=== PATIENT | female | born 1950 | race Caucasian/White ===

== ENCOUNTER → 2018-01-02 00:43 | Outpatient (CLI) | payer MEDICARE, MEDICAID, SELFPAY ==
--- NOTE | 2018-01-02 07:08 | DI.REPORT_ITS ---
SYMPTOM/DIAGNOSIS: RUQ ABD PAIN, R10..11 ABDOMINAL ULTRASOUND: Aorta and vena cava are unremarkable. The liver is mildly heterogeneous and echogenic consistent with fatty infiltration. The liver is enlarged with a maximal diameter of 19.9 cm. The gallbladder is unremarkable. There are no stones. There is no evidence of ductal dilatation. The pancreas is echogenic. The head and body is seen. The tail is not visualized. The spleen is enlarged measuring 16.1 x 14.2 x 10.1 cm. The kidneys are unremarkable. There is no evidence of abdominal free fluid. SUMMARY: An enlarged fatty liver is demonstrated. There is also some fatty infiltration of the pancreas. The examination is otherwise unremarkable.
== END ==
PROVIDERS: PCP Physician Assistant Medical; Visit Provider Physician Assistant Medical
DX: R10.11 Right upper quadrant pain (principal); E16.2 Hypoglycemia, unspecified; K76.0 Fatty (change of) liver, not elsewhere classified; K86.89 Other specified diseases of pancreas
CPT/HCPCS: 76700

== ENCOUNTER → 2018-01-14 15:51 | Outpatient (REF) | payer MEDICARE, MEDICAID, SELFPAY ==
[2018-01-14 20:28] LABS: ALT 23 U/L (12-78); AST 15 U/L (15-37); Albumin 4.1 g/dL (3.4-5.0); Alkaline Phosphatase 84 U/L (46-116); Bilirubin, Direct 0.15 mg/dL (0.00-0.20); Bilirubin, Total 0.5 mg/dL (0.2-1.0); Total Protein 7.1 g/dL (6.4-8.2)
[2018-01-14 21:04] LABS: Hemoglobin A1C 5.9 % (4.5-6.2)
[2018-01-16 10:52] LABS: Hepatitis A Antibody IgM Negative (NEGAT); Hepatitis B Core Antibody Negative (NEGAT); Hepatitis B surface Ag Negative (NEGAT); Hepatitis C Ab w Rflx HCV PCR Negative (NEGAT)
== END ==
LOC: NCHCN 15:51
PROVIDERS: PCP Physician Assistant Medical; Visit Provider Physician Assistant Medical
DX: R73.9 Hyperglycemia, unspecified (principal); R16.0 Hepatomegaly, not elsewhere classified; R10.11 Right upper quadrant pain
CPT/HCPCS: 80076; 86704; 86709; 86803; 87340; 83036

== ENCOUNTER 2018-01-23 01:40 | Outpatient (CLI) | payer MEDICARE, MEDICAID, SELFPAY ==
--- NOTE | 2018-01-23 13:55 | MERGE_ITS ---
*[facility]* *[facility]* [address] [place] [address] Date of study: 01/23/2018 Transthoracic Echocardiography M-mode, complete 2D, complete spectral Doppler, and color Doppler *STUDY CONCLUSIONS* Summary: 1. Left ventricle: The cavity size was normal. Wall thickness was at the upper limits of normal. Systolic function was normal. The estimated ejection fraction was 55-60%. Wall motion was normal; there were no regional wall motion abnormalities. 2. Right ventricle: The cavity size was normal. Systolic function was normal. 3. Mitral valve: There was mild regurgitation. 4. Tricuspid valve: There was mild-moderate regurgitation. 5. Pulmonary arteries: Pulmonary systolic pressure was increased, in the range of 35mm Hg to 40mm Hg. 6. Inferior vena cava: The vessel was patent and normal in size. The respirophasic diameter changes were in the normal range (greater than or equal to 50%), consistent with normal central venous pressure. 7. Pericardium, extracardiac: A trivial pericardial effusion was identified. There was no evidence of hemodynamic compromise. *PATIENT PRESENTATION* Height: 157.5cm ((62in) ) S/D Pressure: 113 / 69 Weight: 104.3kg ((229.5lb) ) BSA: 2.2m^2 Test start time: 02:00 PM. Test stop time: 03:00 PM. PERFORMING Unknown PERFORMING [facility] [employer] RT Ni Arevalo)(CT), [facility] ORDERING Nadege Mcgregor Pa-C REFERRING Nadege Mcgregor Pa-C *PROCEDURE DATA* Procedure information: The patient was identified by two identifiers. This study was interpreted by [facility]. Pertinent images and digital data are archived for permanent storage and are available for subsequent review. No prior study was available for comparison. Study status: Routine. Transthoracic echocardiography. M-mode, complete 2D, complete spectral Doppler, and color Doppler. A Transthoracic Echocardiogram was performed. Scanning was performed from the parasternal, apical, subcostal, and suprasternal notch acoustic windows. Images were obtained using an [id number] cardiac ultrasound machine. Image quality was adequate. Study completion: The patient tolerated the procedure well. There were no complications. History: PMH: Ankle edema. *CARDIAC ANATOMY* Left ventricle: The cavity size was normal. Wall thickness was at the upper limits of normal. Systolic function was normal. The estimated ejection fraction was 55-60%. Wall motion was normal; there were no regional wall motion abnormalities. Findings consistent with diastolic dysfunction. There was no evidence of elevated ventricular filling pressure by Doppler parameters. Aortic valve: Trileaflet; normal thickness leaflets. Mobility was not restricted. Doppler: Transvalvular velocity was within the normal range. There was no stenosis. There was no significant regurgitation. VTI ratio of LVOT to aortic valve: 0.76. Valve area (VTI): 2.2cm^2. Indexed valve area (VTI): 1cm^2/m^2. Peak velocity ratio of LVOT to aortic valve: 0.71. Valve area (Vmax): 2cm^2. Indexed valve area (Vmax): 0.9cm^2/m^2. Mean velocity ratio of LVOT to aortic valve: 0.67. Valve area (Vmean): 1.9cm^2. Indexed valve area (Vmean): 0.9cm^2/m^2. Mean gradient (S): 6.4mm Hg. Peak gradient (S): 12.4mm Hg. Aorta: Aortic root: The aortic root was normal in size. Ascending aorta: The ascending aorta was normal in size. Mitral valve: Mildly thickened leaflets. Mobility was not restricted. Doppler: Transvalvular velocity was within the normal range. There was no evidence for stenosis. There was mild regurgitation. Valve area by pressure half-time: 3.7cm^2. Indexed valve area by pressure half-time: 1.7cm^2/m^2. Peak gradient (D): 3.5mm Hg. Left atrium: The atrium was normal in size. Right ventricle: The cavity size was normal. Systolic function was normal. Pulmonic valve: Poorly visualized. Doppler: Transvalvular velocity was within the normal range. There was no evidence for stenosis. There was no significant regurgitation. Tricuspid valve: Structurally normal valve. Doppler: Transvalvular velocity was within the normal range. There was no evidence for stenosis. There was mild-moderate regurgitation. Pulmonary artery: Poorly visualized. Pulmonary systolic pressure was increased, in the range of 35mm Hg to 40mm Hg. Right atrium: The atrium was normal in size. Pericardium: A trivial pericardial effusion was identified. There was no evidence of hemodynamic compromise. Systemic veins: Inferior vena cava: Well visualized. The vessel was patent and normal in size. The respirophasic diameter changes were in the normal range (greater than or equal to 50%), consistent with normal central venous pressure. Baseline ECG: Normal sinus rhythm. Measurements Left ventricle Value Reference LV ID, ED, PLAX 5.3 cm 3.5 - 6.0 LV ID, ES, PLAX 3.4 cm 2.1 - 4.0 LV PW thickness, ED, PLAX 1.0 cm LV end-diastolic volume, 1-p A2C 84 ml LV ejection fraction, 1-p A2C 63 % LV end-diastolic volume, 1-p A4C 98 ml LV ejection fraction, 1-p A4C 59 % LV e', lateral 0.077 m/sec LV E/e', lateral 12 LV e', medial 0.084 m/sec LV E/e', medial 11 LV e', average 0.081 m/sec LV E/e', average 12 Ventricular septum Value Reference IVS thickness, ED, PLAX 1.1 cm LVOT Value Reference LVOT ID, A-P 1.9 cm LVOT area 2.8 cm^2 LVOT peak velocity, S 1.26 m/sec LVOT mean velocity, S 0.8 m/sec LVOT VTI, S 27.8 cm LVOT peak gradient, S 6.3 mm Hg LVOT mean gradient, S 3.1 mm Hg Stroke volume (SV), LVOT DP 79 ml Stroke index (SV/bsa), LVOT DP 36 ml/m^2 Aortic valve Value Reference Aortic valve peak velocity, S 1.8 m/sec Aortic valve mean velocity, S 1.2 m/sec Aortic valve VTI, S 36.4 cm Aortic mean gradient, S 6.4 mm Hg Aortic peak gradient, S 12.4 mm Hg VTI ratio, LVOT/AV 0.76 Aortic valve area, VTI 2.2 cm^2 Velocity ratio, peak, LVOT/AV 0.71 Aortic valve area, peak velocity 2 cm^2 Velocity ratio, mean, LVOT/AV 0.67 Aortic valve area, mean velocity 1.9 cm^2 Aortic valve area/bsa, mean velocity 0.9 cm^2/m^2 Aorta Value Reference Aortic root ID, ED 2.7 cm Ascending aorta ID, A-P, S 3.2 cm RVOT Value Reference RVOT VTI, S 17.3 cm Left atrium Value Reference LA ID, A-P, ES 4.2 cm LA ID/bsa, A-P 1.9 cm/m^2 <=2.2 LA area, ES, A4C 15.8 cm^2 8.8 - 23.4 LA area, ES, A2C 17 cm^2 LA volume/bsa, ES, 1-p A4C 22 ml/m^2 LA volume, ES, 2-p 43 ml LA volume/bsa, ES, 2-p 20 ml/m^2 LA/aortic root ratio 1.55 Mitral valve Value Reference Mitral E-wave peak velocity 0.94 m/sec Mitral A-wave peak velocity 0.98 m/sec Mitral deceleration time 204 ms 150 - 230 Mitral pressure half-time 59 ms Mitral peak gradient, D 3.5 mm Hg Mitral E/A ratio, peak 0.96 Mitral valve area, PHT, DP 3.7 cm^2 Pulmonary veins Value Reference Pulmonary vein peak velocity, S 0.53 m/sec Pulmonary vein peak velocity, D 0.57 m/sec Pulmonary vein velocity ratio, peak, 0.93 S/D Pulmonary vein A-wave reversal peak 0.32 m/sec velocity Tricuspid valve Value Reference Tricuspid regurg peak velocity 3.1 m/sec Tricuspid peak RV-RA gradient 37.9 mm Hg Right atrium Value Reference RA area, ES, A4C 16.3 cm^2 8.3 - 19.5 Legend: (L) and (H) kenneth values outside specified reference range. I have personally reviewed the images and have reviewed and edited the reported findings. Electronically signed by Gretchen Hernandez 01/23/2018 15:58
== END 2018-01-23 01:41 ==
PROVIDERS: PCP Physician Assistant Medical; Visit Provider Physician Assistant Medical
DX: R60.0 Localized edema (principal); I31.3 Pericardial effusion (noninflammatory); I08.1 Rheumatic disorders of both mitral and tricuspid valves
CPT/HCPCS: 93306

== ENCOUNTER 2018-08-01 13:35 | Outpatient (REF) | payer MEDICARE, SELFPAY ==
[2018-08-01 19:38] LABS: Cholesterol 205 mg/dL (50-200); HDL Cholesterol 73 mg/dL (40-60); LDL CHOLESTEROL 104 mg/dL (<100); Triglyceride 128 mg/dL (30-150)
== END 2018-08-01 13:55 ==
LOC: NCHCN 13:35
PROVIDERS: PCP Physician Assistant Medical; Visit Provider Nurse Practitioner Family
DX: E78.5 Hyperlipidemia, unspecified (principal); I10 Essential (primary) hypertension
CPT/HCPCS: 80061; 83721

== ENCOUNTER 2018-08-04 07:37 | Day surgery (SDC) | payer MEDICARE, OTHER, SELFPAY ==
--- NOTE | 2018-08-03 17:10 | W.PIPPEYE ---
History of Present Illness Chief Complaint: Progressive decreased vision, left eye Narrative: Patient is a 67-year-old lady with history of diminished visual acuity in both eyes and near. She notes progressive decreased vision in both eyes with significant difficulty reading road signs and with photography. On examination she was noted to have moderate nuclear cortical and posterior subcapsular cataracts OU with visual acuity of 20/50 in each eye. The option of cataract surgery was offered to the patient and she felt she was symptomatic enough that she wished to proceed. NOTE: The Chief Complaint, HPI, Past Medical History, Past Surgical History, Family History, Social History, Medications, and complete Ophthalmic Exam with detailed Assessment and Plan have already been documented in the patient's outpatient ophthalmic record and are not covered again in detail here. [facility] Medical History Cortical cataract of left eye (Acute) Posterior subcapsular age-related cataract of left eye (Acute) Nuclear sclerotic cataract of left eye (Acute) Social History Smoking and Tabacco status: Former Tobacco Use Meds Home Medications Medication Instructions Recorded Confirmed Type aspirin [Aspirin Low-Strength] 81 mg PO DAILY tab-cap 09/18/12 07/30/18 History sertraline 200 mg PO DAILY tab-cap 09/18/12 07/30/18 History losartan [Cozaar] 50 mg PO DAILY tab-cap 03/26/16 07/30/18 History simvastatin 40 mg PO DAILY tab-cap 03/26/16 07/30/18 History biotin 5 mg PO DAILY 07/30/18 07/30/18 History calcium carbonate [Tums] 400 - 800 mg PO PRN PRN 07/30/18 07/30/18 History cholecalciferol (vitamin D3) 1,000 unit PO DAILY 07/30/18 07/30/18 History [Vitamin D3] furosemide 20 mg PO DAILY 07/30/18 07/30/18 History rizatriptan [Maxalt-[employer] DIRECTOR] 5 mg PO .UP TO TWO DAILY PRN 07/30/18 07/30/18 History vitamin B complex 1 tab PO DAILY 07/30/18 07/30/18 History Allergies Allergy/AdvReac Type Severity Reaction Status Date / Time nickel [Nickel] Allergy Mild Unverified 07/30/18 16:00 sulfamethoxazole AdvReac Unknown Unverified 07/30/18 16:00 [From Bactrim] trimethoprim [From Bactrim] AdvReac Unknown Unverified 07/30/18 16:00 Exam OCULAR EXAM:: Most recent ocular examination revealed visual acuity of 20/50 in each eye. Intraocular pressure was 11 OD, 10 OS. Extraocular motility is normal. Pupils equal, round, and reactive without afferent pupillary defect slit-lamp examination is significant for pupils dilating to 5.5 mm OU. 1-2+ nuclear with 1+ cortical and trace posterior subcapsular cataract OD. 2+ nuclear with 2+ cortical and trace posterior subcapsular cataract OS. Dilated funduscopic examination shows disc cupping of 0.65 OD 0.7 OS with normal vessels, macula, peripheral retina and vitreous. BRIGHTNESS ACUITY TESTING (BAT):: Brightness acuity testing of the left eye off is 20/50. Low is 20/60. Medium is 20/60. High is 20/80. Assessment and Plan (1) Nuclear sclerotic cataract of left eye: Current visit: Yes Status: Acute Assessment: Visually significant cataract, left eye. Plan: Cataract extraction with intraocular lens implantation, left eye (2) Posterior subcapsular age-related cataract of left eye: Current visit: Yes Status: Acute Assessment: Visually significant cataract, left eye. Plan: Cataract extraction with intraocular lens implantation, left eye is (3) Cortical cataract of left eye: Current visit: Yes Status: Acute Assessment: Visually significant cataract, left eye. Plan: Cataract extraction with intraocular lens implantation, left eye Note: NOTE:: The details of the planned surgery, including the risks, indications,limitations,expectations,outcome and possible complications were explained to the patient. The patient understands the complications including, but not limited to: infection, hemorrhage, posterior dislocation of the lens or nuclear fragments which may require the intervention of a vitreoretinal surgeon, possible loss of the eye, or from anesthetic complications. The patient has been made aware of the option of not having surgery, that vision following surgery may not be equal to that prior to surgery, and that the planned surgery may not achieve the intended results. Following this discussion, which the patient appeared to understand, the patient wishes to proceed with cataract surgery with lens implantation of the affected eye to improve and maximize vision.
--- NOTE | 2018-08-03 17:13 | POEE_ITS ---
History of Present Illness Chief Complaint: Progressive decreased vision, left eye Narrative: Patient is a 67-year-old lady with history of diminished visual acuity in both eyes and near. She notes progressive decreased vision in both eyes with significant difficulty reading road signs and with photography. On e xamination she was noted to have moderate nuclear cortical and posterior subcapsular cataracts OU with visual acuity of 20/50 in each eye. The option of cataract surgery was offered to the patient and she felt she was symptomatic enough that she wished to proceed. NOTE: The Chief Complaint, HPI, Past Medical History, Past Surgical History, Family History, Social History, Medications, and complete Ophthalmic Exam with detailed Assessment and Plan have already been documented in the patient's outpatient ophthalmic record and are not covered again in detail here. [facility] Medical History Cortical cataract of left eye (Acute) Posterior subcapsular age-related cataract of left eye (Acute) Nuclear sclerotic cataract of left eye (Acute) Social History Smoking and Tabacco status: Former Tobacco Use Meds Home Medications Medication Instructions Recorded Confirmed Type aspirin [Aspirin Low-Strength] 81 mg PO DAILY tab-cap 09/18/12 07/30/18 History sertraline 200 mg PO DAILY tab-cap 09/18/12 07/30/18 History losartan [Cozaar] 50 mg PO DAILY tab-cap 03/26/16 07/30/18 History simvastatin 40 mg PO DAILY tab-cap 03/26/16 07/30/18 History biotin 5 mg PO DAILY 07/30/18 07/30/18 History calcium carbonate [Tums] 400 - 800 mg PO PRN PRN 07/30/18 07/30/18 History cholecalciferol (vitamin D3) 1,000 unit PO DAILY 07/30/18 07/30/18 History [Vitamin D3] furosemide 20 mg PO DAILY 07/30/18 07/30/18 History rizatriptan [Maxalt-BUTTON PUSHER] 5 mg PO .UP TO TWO DAILY PRN 07/30/18 07/30/18 History vitamin B complex 1 tab PO DAILY 07/30/18 07/30/18 History Allergies Allergy/AdvReac Type Severity Reaction Status Date / Time nickel [Nickel] Allergy Mild Unverified 07/30/18 16:00 sulfamethoxazole AdvReac Unknown Unverified 07/30/18 16:00 [From Bactrim] trimethoprim [From Bactrim] AdvReac Unknown Unverified 07/30/18 16:00 Exam OCULAR EXAM:: Most recent ocular examination revealed visual acuity of 20/50 in each eye. Intraocular pressure was 11 OD, 10 OS. Extraocular motility is normal. Pupils equal, round, and reactive without afferent pupillary defect slit-lamp examination is significant for pupils dilating to 5.5 mm OU. 1-2+ nuclear with 1+ cortical and trace posterior subcapsular cataract OD. 2+ nuclear with 2+ cortical and trace posterior subcapsular cataract OS. Dilated funduscopic examination shows disc cupping of 0.65 OD 0.7 OS with normal vessels, macula, peripheral retina and vitreous. BRIGHTNESS ACUITY TESTING (BAT):: Brightness acuity testing of the left eye off is 20/50. Low is 20/60. Medium is 20/60. High is 20/80. Assessment and Plan (1) Nuclear sclerotic cataract of left eye: Current visit: Yes Status: Acute Assessment: Visually significant cataract, left eye. Plan: Cataract extraction with intraocular lens implantation, left eye (2) Posterior subcapsular age-related cataract of left eye: Current visit: Yes Status: Acute Assessment: Visually significant cataract, left eye. Plan: Cataract extraction with intraocular lens implantation, left eye is (3) Cortical cataract of left eye: Current visit: Yes Status: Acute Assessment: Visually significant cataract, left eye. Plan: Cataract extraction with intraocular lens implantation, left eye Note: NOTE:: The details of the planned surgery, including the risks, indications,limitations,expectations,outcome and possible complications were explained to the patient. The patient understands the complications including, but not limited to: infection, hemorrhage, posterior dislocation of the lens or nuclear fragments which may require the intervention of a vitreoretinal surgeon, possible loss of the eye, or from anesthetic complications. The patient has been made aware of the option of not having surgery, that vision following surgery may not be equal to that prior to surgery, and that the planned surgery may not achieve the intended results. Following this discussion, which the patient appeared to understand, the patient wishes to proceed with cataract surgery with lens implantation of the affected eye to improve and maximize vision.
--- NOTE | 2018-08-03 18:22 | W.PM.DSUDISC ---
Discharge Plan Disposition Patient Disposition: HOME Condition: Stable Discharge Details Attending Provider: Mario Flores Primary Care Provider: Mary Barton Home Meds and New Rx's Prescriptions: No Action sertraline 100 MG tablet 200 mg PO DAILY RF: 0 aspirin [Aspirin Low-Strength] 81 MG tablet,chewable 81 mg PO DAILY RF: 0 losartan [Cozaar] 50 MG tablet 50 mg PO DAILY RF: 0 simvastatin 40 MG tablet 40 mg PO DAILY RF: 0 biotin 5 mg Capsule 5 mg PO DAILY RF: 0 calcium carbonate [Tums] 200 mg calcium (500 mg) Tablet,Chewable 400 - 800 mg PO PRN PRNRF: 0 vitamin B complex Tablet 1 tab PO DAILY RF: 0 furosemide 20 mg Tablet 20 mg PO DAILY RF: 0 rizatriptan [Maxalt-[employer] PRODUCT CONSULTANT] 5 mg Tablet,Disintegrating 5 mg PO .UP TO TWO DAILY PRNRF: 0 cholecalciferol (vitamin D3) [Vitamin D3] 1,000 unit Capsule 1,000 unit PO DAILY RF: 0 Discharge Instructions Stand Alone Forms: Post-op Topical Cataract, Shelia Lujan (DSU) Discharge Orders Discharge Orders: Discharge Order (Routine); Ordered 08/04/18 Ordered By: Mario Flores DS: Diagnosis Discharge Diagnosis (1) Status post cataract extraction and insertion of intraocular lens of left eye: Status: Chronic
--- NOTE | 2018-08-03 18:25 | PDOC.DSDIS_ITS ---
Discharge Plan Disposition Patient Disposition: HOME Condition: Stable Discharge Details Attending Provider: Mario Flores Primary Care Provider: Mary Barton Home Meds and New Rx's Prescriptions: No Action sertraline 100 MG tablet 200 mg PO DAILY RF: 0 aspirin [Aspirin Low-Strength] 81 MG tablet,chewable 81 mg PO DAILY RF: 0 losartan [Cozaar] 50 MG tablet 50 mg PO DAILY RF: 0 simvastatin 40 MG tablet 40 mg PO DAILY RF: 0 biotin 5 mg Capsule 5 mg PO DAILY RF: 0 calcium carbonate [Tums] 200 mg calcium (500 mg) Tablet,Chewable 400 - 800 mg PO PRN PRNRF: 0 vitamin B complex Tablet 1 tab PO DAILY RF: 0 furosemide 20 mg Tablet 20 mg PO DAILY RF: 0 rizatriptan [Maxalt-[employer] DISTRIBUTION EXECUTIVE] 5 mg Tablet,Disintegrating 5 mg PO .UP TO TWO DAILY PRNRF: 0 cholecalciferol (vitamin D3) [Vitamin D3] 1,000 unit Capsule 1,000 unit PO DAILY RF: 0 Discharge Instructions Stand Alone Forms: Post-op Topical Cataract, Shelia Lujan (DSU) Discharge Orders Discharge Orders: Discharge Order (Routine); Ordered 08/04/18 Ordered By: Mario Flores DS: Diagnosis Discharge Diagnosis (1) Status post cataract extraction and insertion of intraocular lens of left eye: Status: Chronic
[2018-08-04 07:46] VITALS: BP 114/66; PULSE 83; RESP 16; TEMP 37; O2SAT 94
[2018-08-04] MEDS: Tetracaine 0.5% 4 ML BTL OS ×4 (08:02→09:33)
[2018-08-04] MEDS: Tropicam./Phenyleph. (1/2.5%) 5 ML BTL OS ×3 (08:02→08:31)
[2018-08-04] MEDS: Lidocaine 2% Jelly 6 ML SYR (09:33)
[2018-08-04] MEDS: Povidone-Iodine Ophth 30 ML BTL ×2 (09:33→09:59)
[2018-08-04] MEDS: Balanced Salt Soln.-PLUS 500 ML BAG (09:37)
[2018-08-04] MEDS: Lidocaine 1% Pres-Free 5 ML VIAL (09:37)
--- NOTE | 2018-08-04 10:06 | ROE_ITS ---
Date of service: 08/04/18 Time of Service: 10:05 Operative Note PRE-OP DIAGNOSIS: Cataract, left eye POST-OP DIAGNOSIS: same PROCEDURE: Cataract extraction using phacoemulsification with intraocular lens implant, left eye SURGEON: Mario Flores ANESTHESIA: MAC and local (sub-tenon's anesthetic infiltration) PATHOLOGY: none sent COMPLICATIONS: None Patient was transported to: same day Patient's condition: stable Implants: Stefano and Stefano Vision / [employer] Tecnis [id number] Indications: Progressive decreased vision due to cataract, left eye Procedure Description: CATARACT SURGERY OPERATIVE REPORT PREOPERATIVE DIAGNOSIS: Nuclear/cortical/posterior subcapsular cataract, left eye, symptomatic POSTOPERATIVE DIAGNOSIS: Same OPERATION: Cataract extraction using phacoemulsification with posterior chamber intraocular lens implant, left eye. IOL: IOL Lining Maker Hand/Model: J&J Vision / MANJIT Tecnis ZCB00 IOL Power: + 21.50 diopters IOL Serial Number: [id number] Optic Diameter: 6.0mm Haptic/Overall Diameter: 13.0mm PHACO INFO: [employer] Vision System with OZil and Active Fluidics Cumulative Dispersed Energy (CDE): 7.60 seconds SURGEON: Mario Flores MD, RAGHAV ANESTHESIA: Monitored Anesthesia Care (MAC), with local sub-tenon's anesthetic infiltration COMPLICATIONS: None SPECIMENS: None INDICATIONS FOR PROCEDURE: The patient is a 67-year old lady with history of progressive decreased vision in both eyes at both distance and near. She is noted to have a significant nuclear cortical and posterior subcapsular cataract of the left eye. The option of cataract surgery was offered to the patient and she wished to proceed. PROCEDURE: The correct surgical eye was identified and marked as the left eye and the pupil was dilated in the preoperative area using mydriatics and cycloplegics. The dilated pupil size was 7.0 mm. Oral sedation was administered in the form of an Imprimis MKO Melt (midazolam 3mg/ketamine 25mg/ondansetron 2mg). The patient was brought to the operating room where cardiopulmonary monitoring was instituted and surgical time-out was performed, confirming the correct operative eye and IOL power. Topical anesthesia was administered and ophthalmic povidone-iodine 5% was instilled into the conjunctival fornices. Lidocaine gel was applied to the cornea and the pattie-ocular area was prepped with Betadine 10% solution and draped in the usual sterile fashion for intraocular surgery, including an aperture drape. A Tegaderm transparent film dressing was cut in half and used to cover the lashes and lid margins. Care was taken to sequester the lashes and lid margins under the Tegaderm dressing. A lid speculum was placed between the lids of the operative eye and the Rik-Dana operating microscope was maneuvered into position. Haroon scissors were then used to make a conjunctival buttonhole approximately 6mm posterior to the limbus in the inferonasal quadrant. Blunt dissection was carried out to expose bare sclera, and a blunt-tipped sub-tenon?s anesthesia cannula was introduced and passed posteriorly along the globe where non- preserved plain lidocaine was injected into posterior sub-Tenon?s space. A sideport knife was used to make a paracentesis port superior/superiortemporal, and the anterior chamber was filled with Healon GV. A 2.4mm keratome knife was used to create a half-thickness groove at the limbus and then to construct a three-plane near-clear corneal tunnel extending 2.0mm into clear cornea in the t emporal position. . A flap was raised on the anterior capsule and capsulorhexis forceps were used to complete a continuous curvilinear capsulorhexis of 5.5 mm. Balanced salt solution was then used to perform cortical cleaving hydrodissection and nuclear hydrodelineation until the lens could be freely rotated within the capsular bag. The lens nucleus was then disassembled and removed within the capsular bag and iris plane using phacoemulsification. Residual cortical material was removed using the 45-degree angled silicone I/A tip with 0.3mm port. The posterior capsule was carefully polished to remove as much residual lens epithelial cells as safely possible. The capsular bag was then inflated and the anterior chamber deepened with viscoelastic. The lens implant described above was inserted into the capsular bag using the MANJIT [place] Injector. A Kuglen hook was used to dial the IOL into position. Residual viscoelastic was then removed first from posterior to the IOL, then from the anterior chamber using the I/A handpiece. The lens implant was noted to center nicely within the capsular bag. The incisions were stromally hydrated, and the anterior chamber was reformed using BSS. Then 0.4cc of moxifloxacin 1.5mg/ml were injected into the capsular bag and anterior chamber. The incisions were checked with a Weck spear and found to be secure. Several drops of ophthalmic povidone-iodine 5% were then applied to the eye followed by two drops of Imprimis combination moxifloxacin/dexamethasone solution. The drapes were removed and a clear plastic protective eye shield was placed over the eye. The patient was then returned to Same Day Surgery in stable condition.
[2018-08-04 10:40] VITALS: BP 96/59; PULSE 80; RESP 16; TEMP 36.5; O2SAT 97
== END 2018-08-04 10:47 | disposition home or self-care (01) ==
LOC: SUR 07:38
PROVIDERS: PCP Nurse Practitioner Family; Visit Provider Ophthalmology
PROC: (CPT 66984; principal; 2018-08-04 10:00)
DX: H25.812 Combined forms of age-related cataract, left eye (principal); I10 Essential (primary) hypertension
CPT/HCPCS: 66984; V2632

== ENCOUNTER 2018-08-18 06:58 | Day surgery (SDC) | payer MEDICARE, OTHER, SELFPAY ==
--- NOTE | 2018-08-17 16:45 | POEE_ITS ---
History of Present Illness Chief Complaint: Progressive decreased vision, right eye Narrative: The patient is a 67-year-old lady with history of diminished visual acuity in both eyes at both distance and near. She notes significant difficulty with taking photos with blurry fuzzy and foggy vision, and difficulty with depth perception. On examination she was noted to have bilateral nuclear cortical and posterior subcapsular cataracts with visual acuity of 20/50 in each eye. The option of cataract surgery was offered to the patient and she wished to proceed, undergoing cataract surgery in the left eye on 08/04/2018. Postoperatively her uncorrected visual acuity is 20/25 in the left eye. She now presents for cataract surgery in the right eye. NOTE: The Chief Complaint, HPI, Past Medical History, Past Surgical History, Family History, Social History, Medications, and complete Ophthalmic Exam with detailed Assessment and Plan have already been documented in the patient's outpatient ophthalmic record and are not covered again in detail here. PFS Medical History Blood glucose elevated (Acute) Enlarged liver (Acute) History of colon cancer (Acute) Hyperlipemia (Acute) Tricuspid regurgitation (Acute) Depression (Chronic) Hypertension (Chronic) Obesity (Chronic) Cortical cataract of left eye (Resolved) Nuclear sclerotic cataract of left eye (Resolved) Posterior subcapsular age-related cataract of left eye (Resolved) Surgical History Status post cataract extraction and insertion of intraocular lens of left eye (Chronic 08/04/18) History of hemicolectomy (Acute) Social History Smoking/Tobacco Use Status: Former Tobacco Use Drug use: Never Meds Home Medications Medication Instructions Recorded Confirmed Type aspirin [Aspirin Low-Strength] 81 mg PO DAILY tab-cap 09/18/12 08/04/18 History sertraline 200 mg PO DAILY tab-cap 09/18/12 08/04/18 History losartan [Cozaar] 50 mg PO DAILY tab-cap 03/26/16 08/04/18 History simvastatin 40 mg PO DAILY tab-cap 03/26/16 08/04/18 History biotin 5 mg PO DAILY 07/30/18 08/04/18 History calcium carbonate [Tums] 400 - 800 mg PO PRN PRN 07/30/18 08/04/18 History cholecalciferol (vitamin D3) 1,000 unit PO DAILY 07/30/18 08/04/18 History [Vitamin D3] furosemide 20 mg PO DAILY 07/30/18 08/04/18 History rizatriptan [Maxalt-CLINICAL TRAINING COORDINATOR] 5 mg PO .UP TO TWO DAILY PRN 07/30/18 08/04/18 History vitamin B complex 1 tab PO DAILY 07/30/18 08/04/18 History Allergies Allergy/AdvReac Type Severity Reaction Status Date / Time nickel [Nickel] Allergy Mild Unverified 07/30/18 16:00 sulfamethoxazole AdvReac Unknown Unverified 07/30/18 16:00 [From Bactrim] trimethoprim [From Bactrim] AdvReac Unknown Unverified 07/30/18 16:00 Exam OCULAR EXAM:: Most recent ocular examination is significant for uncorrected visual acuity of 20/50 in the right eye, 20/25 in the left eye. Intraocular pressure is 11 OD 10 OS. Extraocular motility is normal. Pupils equal, round, and reactive without afferent pupillary defect slit-lamp examination is significant for pupils dilating to 5.5 mm OU. 1-2+ nuclear with 1+ cortical and trace posterior subcapsular cataract OD. Well-positioned PCIOL OS with clear posterior capsule. Funduscopic examination shows disc cupping of 0.65 OD 0.7 OS with normal vessels. There is some macular pigmentary changes in both eyes. Peripheral retina and vitreous is normal OU. BRIGHTNESS ACUITY TESTING (BAT):: Brightness acuity testing of the right eye off is 20/50. Low and medium is 20/40. High is 20/60. Assessment and Plan (1) Posterior subcapsular age-related cataract, right eye: Current visit: No Status: Acute Assessment: Visually significant cataract, right eye. Plan: Cataract extraction with intraocular lens implantation, right eye (2) Nuclear sclerotic cataract of right eye: Current visit: No Status: Acute Assessment: Visually significant cataract, right eye. Plan: Cataract extraction with intraocular lens implantation, right eye (3) Cortical cataract of right eye: Current visit: No Status: Acute Assessment: Visually significant cataract, right eye. Plan: Cataract extraction with intraocular lens implantation, right eye Note: NOTE:: The details of the planned surgery, including the risks, tressa cations,limitations,expectations,outcome and possible complications were explained to the patient. The patient understands the complications including, but not limited to: infection, hemorrhage, posterior dislocation of the lens or nuclear fragments which may require the intervention of a vitreoretinal surgeon, possible loss of the eye, or from anesthetic complications. The patient has been made aware of the option of not having surgery, that vision following surgery may not be equal to that prior to surgery, and that the planned surgery may not achieve the intended results. Following this discussion, which the patient appeared to understand, the patient wishes to proceed with cataract surgery with lens implantation of the affected eye to improve and maximize vision.
--- NOTE | 2018-08-17 19:27 | PDOC.DSDIS_ITS ---
Discharge Plan Disposition Patient Disposition: HOME Condition: Stable Discharge Details Attending Provider: Mario Flores Primary Care Provider: Mary Barton Home Meds and New Rx's Prescriptions: No Action sertraline 100 MG tablet 200 mg PO DAILY RF: 0 aspirin [Aspirin Low-Strength] 81 MG tablet,chewable 81 mg PO DAILY RF: 0 losartan [Cozaar] 50 MG tablet 50 mg PO DAILY RF: 0 simvastatin 40 MG tablet 40 mg PO DAILY RF: 0 biotin 5 mg Capsule 5 mg PO DAILY RF: 0 calcium carbonate [Tums] 200 mg calcium (500 mg) Tablet,Chewable 400 - 800 mg PO PRN PRNRF: 0 vitamin B complex Tablet 1 tab PO DAILY RF: 0 furosemide 20 mg Tablet 20 mg PO DAILY RF: 0 rizatriptan [Maxalt-HIDE AND SKIN FLESHING MACHINE OPERATOR] 5 mg Tablet,Disintegrating 5 mg PO .UP TO TWO DAILY PRNRF: 0 cholecalciferol (vitamin D3) [Vitamin D3] 1,000 unit Capsule 1,000 unit PO DAILY RF: 0 Discharge Instructions Stand Alone Forms: Post-op Topical Cataract, Shelia Lujan (DSU) Discharge Orders Discharge Orders: Discharge Order (Routine); Ordered 08/18/18 Ordered By: Mario Flores DS: Diagnosis Discharge Diagnosis (1) Posterior subcapsular age-related cataract, right eye: Status: Resolved (2) Nuclear sclerotic cataract of right eye: Status: Resolved (3) Cortical cataract of right eye: Status: Resolved (4) Status post cataract extraction and insertion of intraocular lens of right eye: Status: Chronic
--- NOTE | 2018-08-17 19:27 | W.PM.OP ---
Date of service: 08/18/18 Time of Service: 09:10 Operative Note PRE-OP DIAGNOSIS: Cataract, right eye PROCEDURE: Cataract extraction using phacoemulsification with intraocular lens implant, right eye SURGEON: Mario Flores ANESTHESIA: MAC and local (sub-tenon's anesthetic infiltration) ESTIMATED BLOOD LOSS: 0 PATHOLOGY: none sent COMPLICATIONS: None Patient was transported to: same day Patient's condition: stable Implants: Stefano and Stefano Vision / [employer] Tecnis ZCB00 intraocular lens Indications: Progressive decreased vision due to cataract, right eye Procedure Description: CATARACT SURGERY OPERATIVE REPORT PREOPERATIVE DIAGNOSIS: Nuclear/cortical/posteriorsubcapsular cataract, right eye POSTOPERATIVE DIAGNOSIS: Same OPERATION: Cataract extraction using phacoemulsification with posterior chamber intraocular lens implant, right eye. IOL: IOL Banquet Pilot/Model: J&J Advaction / MANJIT Tecnis ZCB00 IOL Power: +22.50 diopters IOL Serial Number: [id number] Optic Diameter: 6.0mm Haptic/Overall Diameter: 13.0mm PHACO INFO: [employer] Vision System with OZil and Active Fluidics Cumulative Dispersed Energy (CDE): 5.90 seconds SURGEON: Mario Flores MD, RAGHAV ANESTHESIA: Monitored Anesthesia Care (MAC), with local sub-tenon's anesthetic infiltration COMPLICATIONS: None SPECIMENS: None INDICATIONS FOR PROCEDURE: The patient is a 67-year-old lady with history of diminished visual acuity in both eyes secondary to the development of bilateral nuclear cortical and posterior subcapsular cataract. She has already undergone cataract surgery in her left eye and is doing well postoperatively. She now presents for cataract surgery in her right eye. PROCEDURE: The correct surgical eye was identified and marked as the right eye and the pupil was dilated in the preoperative area using mydriatics and cycloplegics. The dilated pupil size was 6.5 mm. Oral sedation was administered in the form of an Imprimis MKO Melt (midazolam 3mg/ketamine 25mg/ondansetron 2mg). The patient was brought to the operating room where cardiopulmonary monitoring was instituted and surgical time-out was performed, confirming the correct operative eye and IOL power. Topical anesthesia was administered and ophthalmic povidone-iodine 5% was instilled into the conjunctival fornices. Lidocaine gel was applied to the cornea and the pattie-ocular area was prepped with Betadine 10% solution and draped in the usual sterile fashion for intraocular surgery, including an aperture drape. A Tegaderm transparent film dressing was cut in half and used to cover the lashes and lid margins. Care was taken to sequester the lashes and lid margins under the Tegaderm dressing. A lid speculum was placed between the lids of the operative eye and the Rik-Dana operating microscope was maneuvered into position. Haroon scissors were then used to make a conjunctival buttonhole approximately 6mm posterior to the limbus in the inferonasal quadrant. Blunt dissection was carried out to expose bare sclera, and a blunt-tipped sub-tenon?s anesthesia cannula was introduced and passed posteriorly along the globe where non-preserved plain lidocaine was injected into posterior sub-Tenon?s space. A sideport knife was used to make a paracentesis port inferiortemporally, and the anterior chamber was filled with Healon GV. A 2.4mm keratome knife was used to create a half-thickness groove at the limbus and then to construct a three-plane near-clear corneal tunnel extending 2.0mm into clear cornea in the superiortemporal position. . A flap was raised on the anterior capsule and capsulorhexis forceps were used to complete a continuous curvilinear capsulorhexis of 5.0mm. This was somewhat challengind due to constant patient eye movement. Balanced salt solution was then used to perform cortical cleaving hydrodissection and nuclear hydrodelineation until the lens could be freely rotated within the capsular bag. The lens nucleus was then disassembled and removed within the capsular bag and iris plane using phacoemulsification. Residual cortical material was removed using the I/A handpiece. The posterior capsule was carefully polished to remove as much residual lens epithelial cells as safely possible. The capsular bag was then inflated and the anterior chamber deepened with viscoelastic. The lens implant described above was inserted into the capsular bag using the MANJIT [place] Injector. A Kuglen hook was used to dial the IOL into position. Residual viscoelastic was then removed first from posterior to the IOL, then from the anterior chamber using the I/A handpiece. The lens implant was noted to center nicely within the capsular bag. The incisions were stromally hydrated, and the anterior chamber was reformed using BSS. Then 0.4cc of moxifloxacin 1.5mg/ml were injected into the capsular bag and anterior chamber. The incisions were checked with a Weck spear and found to be secure. Several drops of ophthalmic povidone-iodine 5% were then applied to the eye followed by two drops of Imprimis combination moxifloxacin/dexamethasone solution. The drapes were removed and a clear plastic protective eye shield was placed over the eye. The patient was then returned to Same Day Surgery in stable condition.
[2018-08-18 07:15] VITALS: BP 126/67; PULSE 75; RESP 16; TEMP 36.8; O2SAT 97
[2018-08-18] MEDS: Tropicam./Phenyleph. (1/2.5%) 5 ML BTL OD ×3 (07:30→07:39)
[2018-08-18] MEDS: Tetracaine 0.5% 4 ML BTL OD ×4 (07:30→08:36)
[2018-08-18] MEDS: Lidocaine 2% Jelly 6 ML SYR (08:36)
[2018-08-18] MEDS: Povidone-Iodine Ophth 30 ML BTL (08:36)
[2018-08-18] MEDS: Balanced Salt Soln.-PLUS 500 ML BAG (08:42)
[2018-08-18] MEDS: Lidocaine 1% Pres-Free 5 ML VIAL (08:43)
[2018-08-18 10:06] VITALS: BP 116/61; PULSE 71; RESP 16; TEMP 35.9; O2SAT 97
== END 2018-08-18 09:30 | disposition home or self-care (01) ==
LOC: SUR 06:59
PROVIDERS: PCP Nurse Practitioner Family; Visit Provider Ophthalmology
PROC: (CPT 66984; principal; 2018-08-18 08:45)
DX: H25.811 Combined forms of age-related cataract, right eye (principal); Z98.42 Cataract extraction status, left eye; Z96.1 Presence of intraocular lens; I10 Essential (primary) hypertension
CPT/HCPCS: 66984; V2632

== ENCOUNTER 2019-02-26 10:55 | Outpatient (CLI) | payer MEDICARE, OTHER, SELFPAY ==
--- NOTE | 2019-02-26 11:17 | DI.RAD_ITS ---
EXAM: XR FOOT RT COMPLETE INDICATION: FOOT PAIN M79.671, METATARSALGIA , R/O OA. COMPARISON: RIGHT KNEE 3 VIEWS from 05/14/2015 TECHNIQUE: 2D digital imaging was performed. FINDINGS: Three views were obtained. There are slight degenerative changes of the midfoot and IP joints. Ther e are prominent osteophytes of the sites of attachment of plantar fascia and Achilles tendon on the c alcaneus. No other significant bony abnormality seen. IMPRESSION:
== END 2019-02-26 11:15 ==
PROVIDERS: PCP Nurse Practitioner Family; Visit Provider Nurse Practitioner Family
DX: M79.671 Pain in right foot (principal); M77.41 Metatarsalgia, right foot; M25.771 Osteophyte, right ankle
CPT/HCPCS: 73630

== ENCOUNTER 2019-03-30 13:02 | Outpatient (REF) | payer MEDICARE, OTHER, SELFPAY ==
[2019-03-30 20:59] LABS: TSH (W/Ref FT4) 4.49 uIU/mL (0.36-3.74)
[2019-03-30 21:19] LABS: FREE T4 0.71 ng/dL (0.76-1.46)
== END 2019-03-30 13:22 ==
LOC: NCHCN 13:02
PROVIDERS: PCP Nurse Practitioner Family; Visit Provider Nurse Practitioner Family
DX: R53.81 Other malaise (principal); E66.9 Obesity, unspecified; M25.561 Pain in right knee
CPT/HCPCS: 84439; 84443

== ENCOUNTER 2019-04-01 06:43 | Outpatient (CLI) | payer MEDICARE, OTHER, SELFPAY ==
--- NOTE | 2019-04-01 10:00 | DI.MAMMO_ITS ---
EXAM: MAMMO SCREENING CLINICAL HISTORY: SCREENING, Z12.39 TECHNIQUE: Mammograms were interpreted according to the usual protocol including computer analysis w [employer] CAD system, tomosynthesis and C-view imaging. FINDINGS: The breasts are of moderate density with fairly symmetrical distribution of fibroglandular tissue. N o dominant mass or clumped microcalcification is identified in either breast. Current examination is compared with previous examination of March 2012. There is question of a new area of nodularity with an irregular border projected in the central superior portion of left breast on MLO view. Addit ional mammographic views of the left breast are requested to include MLO and CC spot compression view s. No other significant change seen. IMPRESSION: Additional mammographic views of left breast requested as described above. Breast ultrasound may be i ndicated as well depending on the results of additional mammographic views. Category 0. Breast densi ty, category B. BI-RADS Cat 0 - Assessment Incomplete: Need additional imaging evaluation. Breast Density - Category B - Scattered areas of fibroglandular density.
== END 2019-04-01 07:03 ==
PROVIDERS: PCP Nurse Practitioner Family; Visit Provider Nurse Practitioner Family
DX: Z12.31 Encounter for screening mammogram for malignant neoplasm of breast (principal); R92.8 Other abnormal and inconclusive findings on diagnostic imaging of breast
CPT/HCPCS: 77063; 77067

== ENCOUNTER 2019-04-20 02:23 | Outpatient (CLI) | payer MEDICARE, OTHER, SELFPAY ==
--- NOTE | 2019-04-20 14:30 | DI.MAMMO_ITS ---
EXAM: MG MAMMO SCREEN CALL BACK UNI CLINICAL HISTORY: F/U MAMMO, ? NEW AREA NODULARITY WITH AN IRREGULAR BORDER CENTRAL SUPERIOR TECHNIQUE: Spot-compression MLO and CC views with tomography were performed for a questioned area of nodularity on the recent exam of March,. COMPARISON: March, FINDINGS: No persistent abnormality is seen on the additional views performed. The findings are consistent wit h overlying fibroglandular tissue. IMPRESSION: Category 1, negative mammogram. Yearly screening mammography is recommended BI-RADS Cat 1 - Negative Breast Density - Category B - Scattered areas of fibroglandular density
== END 2019-04-20 02:43 ==
PROVIDERS: PCP Nurse Practitioner Family; Visit Provider Nurse Practitioner Family
DX: Z12.31 Encounter for screening mammogram for malignant neoplasm of breast (principal); R92.8 Other abnormal and inconclusive findings on diagnostic imaging of breast; N64.59 Other signs and symptoms in breast
CPT/HCPCS: 77063; 77067

== ENCOUNTER 2019-05-25 15:06 | Outpatient (REF) | payer MEDICARE, OTHER, SELFPAY ==
[2019-05-25 23:34] LABS: Vitamin D 25 Total 41.5 ng/ml (30-100)
== END 2019-05-25 15:26 ==
LOC: NCHCN 15:06
PROVIDERS: PCP Nurse Practitioner Family; Visit Provider Nurse Practitioner Family
DX: E23.0 Hypopituitarism (principal); K86.89 Other specified diseases of pancreas
CPT/HCPCS: 82306; 84443

== ENCOUNTER 2019-07-27 14:42 | Outpatient (REF) | payer MEDICARE, OTHER, SELFPAY ==
[2019-07-27 20:14] LABS: HCT 42.2 % (36.0-46.0); HGB 13.8 g/dL (12.0-15.5); Mean Corp. HGB Concentration 32.7 g/dL (32.0-36.0); Mean Corpuscular Hemoglobin 28.9 pg (27.0-33.0); Mean Corpuscular Volume 88.5 fL (80-95); Mean Platelet Volume 11.6 fL (8.0-11.0); Platelet Count 153 x1000/uL (130-400); RBC 4.77 m/cumm (4.00-5.20); RBC Distribution Width 14.1 % (11.7-14.6); White Blood Cell Count 5.12 k/cumm (4.4-10.8)
[2019-07-27 20:34] LABS: Hemoglobin A1C 5.8 % (3.8-5.6)
[2019-07-27 20:44] LABS: Anion Gap 8.6 mmol/L (3-11); BUN 16 mg/dL (7-18); CO2 29.4 mmol/L (21.0-32.0); CREATININE 0.86 mg/dL (0.55-1.02); Chloride 106 mmol/L (98-107); Glucose 99 mg/dL (74-106); Potassium 5.4 mmol/L (3.5-5.1); Sodium 144 mmol/L (136-145)
[2019-07-29 11:31] LABS: CEA 2.5 ng/mL (See Note)
== END 2019-07-27 15:02 ==
LOC: NCHCN 14:42
PROVIDERS: PCP Nurse Practitioner Family; Visit Provider Nurse Practitioner Family
DX: I10 Essential (primary) hypertension (principal); E23.0 Hypopituitarism; R73.9 Hyperglycemia, unspecified; Z85.038 Personal history of other malignant neoplasm of large intestine
CPT/HCPCS: 80048; 85027; 82378; 83036; 84443

== ENCOUNTER 2019-08-05 09:58 | Outpatient (REF) | payer MEDICARE, OTHER, SELFPAY ==
[2019-08-05 20:33] LABS: Glucose 103 mg/dL (74-106); Potassium 4.5 mmol/L (3.5-5.1)
== END 2019-08-05 10:18 ==
LOC: NCHCN 09:58
PROVIDERS: PCP Nurse Practitioner Family; Visit Provider Nurse Practitioner Family
DX: R73.9 Hyperglycemia, unspecified (principal)
CPT/HCPCS: 82947; 84132

== ENCOUNTER 2019-11-04 12:29 | Outpatient (REF) | payer MEDICARE, OTHER, SELFPAY ==
[2019-11-04 20:48] LABS: ALT 39 U/L (14-59); AST 22 U/L (15-37); Alkaline Phosphatase 71 U/L (46-116); Bilirubin, Direct 0.14 mg/dL (0.00-0.20); Bilirubin, Total 0.5 mg/dL (0.2-1.0); Creatine Kinase 35 U/L (26-192); Total Protein 6.6 g/dL (6.4-8.2)
[2019-11-04 21:11] LABS: Hemoglobin A1C 5.8 % (3.8-5.6)
[2019-11-04 21:24] LABS: Calculated LDL 91 mg/dL (<100); Cholesterol 184 mg/dL (<200); HDL Cholesterol 65 mg/dL (40-60); Triglyceride 140 mg/dL (<150)
== END 2019-11-04 12:49 ==
LOC: NCHCN 12:29
PROVIDERS: PCP Nurse Practitioner Family; Visit Provider Nurse Practitioner Family
DX: E78.5 Hyperlipidemia, unspecified (principal); R73.03 Prediabetes; E23.0 Hypopituitarism; R16.0 Hepatomegaly, not elsewhere classified
CPT/HCPCS: 80061; 80076; 82550; 83036

== ENCOUNTER 2019-12-23 10:10 | Outpatient (CLI) | payer MEDICARE, OTHER, SELFPAY ==
--- NOTE | 2019-12-23 | DI.RAD_ITS ---
EXAM: XR HIP PELVIS ADULT BL CLINICAL HISTORY: BILAT HIP PAIN, M25.559,DECREASED RANGE OF MOTION, ? OA. TECHNIQUE: 2D digital imaging was performed. COMPARISON: No exams were available for comparison FINDINGS: BONES: No acute fracture is present. No bony destructive lesion is seen. JOINTS: No dislocation present. The hip joint spaces are well maintained. There is moderate bilater al acetabular spurring. Subchondral cysts are seen in the superior acetabula. There is mild spurrin g from the inferior SI joints. SOFT TISSUE: Normal. Suture material is seen in the low pelvis. IMPRESSION: [id number] degenerative changes of both hips. DATA REPOSITORY: RADIATION DOSE DELIVERED:
--- NOTE | 2019-12-23 15:55 | DI.RAD_ITS ---
EXAM: XR KNEE LT 3V AP,LAT,JJ CLINICAL HISTORY: WORSENING LT KNEE PAIN, M25.562, ? OA TECHNIQUE: 2D digital imaging was performed. COMPARISON: MR MRI R LOWER JOINT WO CONT from 04/15/2012 FINDINGS: There is periarticular spurring throughout. There is mild narrowing of the medial femoral tibial eunice nt. There is some lateral subluxation of the tibia with respect to the distal femur. No joint effus ion is visible. IMPRESSION: Degenerative changes , greatest of the medial femoral tibial joint.
== END 2019-12-23 10:30 ==
PROVIDERS: PCP Nurse Practitioner Family; Visit Provider Nurse Practitioner Family
DX: M17.12 Unilateral primary osteoarthritis, left knee (principal)
CPT/HCPCS: 73521; 73562

== ENCOUNTER → 2020-02-04 10:02 | Outpatient (BNVA) | payer MEDICARE, OTHER, SELFPAY | PROVIDERS: PCP Nurse Practitioner Family; Referring Provider Nurse Practitioner Family; Visit Provider Student in an Organized Health Care Education/Training Program | DX: M16.12 Unilateral primary osteoarthritis, left hip (principal); M17.12 Unilateral primary osteoarthritis, left knee; M25.851 Other specified joint disorders, right hip; M25.852 Other specified joint disorders, left hip; I10 Essential (primary) hypertension | CPT/HCPCS: 99203; 99214 ==

== ENCOUNTER 2020-02-11 01:21 | Outpatient (CLI) | payer MEDICARE, OTHER, SELFPAY ==
--- NOTE | 2020-02-11 13:40 | DI.RAD_ITS ---
EXAM: RF JOINT INJECTION FLUORO GUID CLINICAL HISTORY: L HIP INJ UNDER FLUORO, LT HIP PAIN, M25.552 TECHNIQUE: COMPARISON: No exams were available for comparison FINDINGS: Fluoroscopy was utilized by Dr. Tavares during left hip injection. Hard copy shows injected contras t material in the hip joint. Fluoro time 0.13 seconds IMPRESSION: RADIATION DOSE DELIVERED: Total DLP
[2020-02-11] MEDS: methylPREDNISolone ACETATE 80 MG/ML VIAL IM (13:47)
[2020-02-11] MEDS: Omnipaque 300 MG/ML 10 ML BTL IJ (13:48)
[2020-02-11] MEDS: Bupivacaine 0.5% Pres-Free 10 ML VIAL 6 ML IJ (13:48)
--- NOTE | 2020-02-11 16:11 | W.PROCNOTE ---
Date of service: 02/11/20 Time of Service: 13:40 Procedure Note Date of procedure: 02/11/20 Procedure: Left Hip Injection with Fluoroscopic Guidance Surgeon/Proceduralist/Physician: Andre Tavares Procedure Diagnosis: Left Hip Osteoarthritis Procedure Indications: Pari has had persistent pain of the LEFT hip and groin. Noninvasive measures have been tried. To serve as both diagnostic and therapeutic, an injection under fluoroscopy was recommended. I had discussed the risks of the procedure and the patient elected to proceed. Procedure Description: Pari was greeted in the flouroscopy room. The correct side was identified and the consent was reviewed with the patient and signed. The patient was then placed in the supine position on the fluoroscopy table. The LEFT hip was then prepped with Chloraprep. The anterolateral injection starting point was identiifed by bony landmarks and fluoroscopy. The skin and soft tissue in the tract of the injection was anesthetized with 1% Lidocaine. A spinal needle was then inserted deep into the hip joint at the level of the lateral femoral neck under fluoroscopic guidance. A small amount of Omnipaque solution was injected to confirm intraarticular placement. Once confirmed, the hip was injected with 6cc of 0.5% Bupivicaine and 80mg of Depo-Medrol. A bandaid was placed on the injection site. The patient tolerated the procedure well and noted improvement in pre-injection pain.
== END 2020-02-11 01:41 ==
PROVIDERS: PCP Nurse Practitioner Family; Visit Provider Student in an Organized Health Care Education/Training Program
DX: M25.552 Pain in left hip (principal); M16.12 Unilateral primary osteoarthritis, left hip; R10.32 Left lower quadrant pain
CPT/HCPCS: 20610; 77002; J1040

== ENCOUNTER → 2020-03-17 10:40 | Outpatient (BNVA) | payer MEDICARE, OTHER, SELFPAY | PROVIDERS: PCP Nurse Practitioner Family; Referring Provider Nurse Practitioner Family; Visit Provider Student in an Organized Health Care Education/Training Program | DX: M17.12 Unilateral primary osteoarthritis, left knee (principal); M25.851 Other specified joint disorders, right hip; M25.852 Other specified joint disorders, left hip; T84.82XA Fibrosis due to internal orthopedic prosthetic devices, implants and grafts, initial encounter; R53.1 Weakness; I10 Essential (primary) hypertension | CPT/HCPCS: 99213 ==

== ENCOUNTER 2020-05-12 11:14 | Outpatient (CLI) | payer MEDICARE, OTHER, SELFPAY ==
--- NOTE | 2020-05-12 11:00 | DI.RAD_ITS ---
EXAM: XR KNEE RT 3V AP,LAT,JJ CLINICAL HISTORY: AP, Lateral, Merchant TECHNIQUE: COMPARISON: CR XR KNEE LT 3V AP,LAT,JJ from 12/23/2019 RF RF JOINT INJECTION FLUORO GUID from 02/11/2020 FINDINGS: Three views were obtained. There is a total knee joint prosthesis in position. The components appea r well seated. Note is made of apparent lateral subluxation of the patellar prosthetic component. I would note that there is significant deformity of the patella, no postoperative imaging is availabl e for comparison and, although this is likely to represent chronic process, it would be difficult to entirely exclude a nondisplaced patellar fracture. Please correlate clinically. IMPRESSION: RADIATION DOSE DELIVERED: Total DLP
== END 2020-05-12 11:34 ==
PROVIDERS: PCP Nurse Practitioner Family; Referring Provider Nurse Practitioner Family; Visit Provider Student in an Organized Health Care Education/Training Program
DX: M22.8X1 Other disorders of patella, right knee (principal); Z96.651 Presence of right artificial knee joint; T84.82XA Fibrosis due to internal orthopedic prosthetic devices, implants and grafts, initial encounter; T84.84XA Pain due to internal orthopedic prosthetic devices, implants and grafts, initial encounter; M17.12 Unilateral primary osteoarthritis, left knee; I10 Essential (primary) hypertension
CPT/HCPCS: 20610; 73562; 99214; J1040

== ENCOUNTER 2020-05-19 00:16 | Outpatient (CLI) | payer MEDICARE, OTHER, SELFPAY ==
--- NOTE | 2020-05-19 08:37 | DI.CT_ITS ---
EXAM: CT LOWER EXTREMITY RT WO CLINICAL HISTORY: R knee arthrofibrosis with patella deformity,T84.82XA. TECHNIQUE: Imaging Protocol: Axial computed tomography images with coronal and sagittal reformatted images were created and reviewed. COMPARISON: CR XR KNEE RT 3V AP,LAT,JJ from 05/12/2020 FINDINGS: Bones: Patient has a right total knee replacement. This causes artifact. There is no acute fractur e or dislocation. There are productive bony changes seen in the at the medial aspect of the patella partially envelop in the prosthesis. No lytic or sclerotic lesion is identified. No cortical erosio ns are seen. There is an osseous fragment superior to the patella which is well corticated suggestin g a chronic process. There may be a small joint effusion. There is infiltration of the soft tissues anterior and inferior to the patella. No focal fluid collection is seen. Soft Tissues: Please see the above discussion. IMPRESSION: Postoperative changes of a right total knee replacement. Deformity of the patella as described above . No acute fracture. RADIATION DOSE DELIVERED: 237.34mGy.cm Total DLP 237.34mGy.cm Total DLP DATA REPOSITORY: All CT scans at this facility are submitted to the National Radiology Data Registry (NRDR) Dose Index Registry (DIR) with the [employer] (ACR). RADIATION OPTIMIZATION: All CT scans at this facility use at least one of these dose optimization te chniques: automated exposure control; mA and/or kV adjustment per patient size (includes targeted exa ms where dose is matched to clinical indication); or iterative reconstruction.
== END 2020-05-19 00:36 ==
PROVIDERS: PCP Nurse Practitioner Family; Visit Provider Student in an Organized Health Care Education/Training Program
DX: T84.82XA Fibrosis due to internal orthopedic prosthetic devices, implants and grafts, initial encounter (principal)
CPT/HCPCS: 73700

== ENCOUNTER 2020-06-09 03:00 | Outpatient (CLI) | payer MEDICARE, OTHER, SELFPAY ==
[2020-06-09 12:47] LABS: TSH (W/Ref FT4) 3.14 uIU/mL (0.36-3.74)
== END 2020-06-09 03:20 ==
PROVIDERS: PCP Nurse Practitioner Family; Visit Provider Nurse Practitioner Family
DX: F33.9 Major depressive disorder, recurrent, unspecified (principal)
CPT/HCPCS: 36415; 84443

== ENCOUNTER 2020-09-13 14:57 | Outpatient (REF) | payer MEDICARE, OTHER, SELFPAY ==
[2020-09-13 18:25] LABS: HCT 42.2 % (36.0-46.0); HGB 13.6 g/dL (11.2-15.7); MCH 29.2 pg (27.0-33.0); MCHC 32.2 % (32.0-36.0); MCV 90.8 fL (80-95); MPV 11.9 fL (8.0-11.0); Platelet Count 162 10^3/uL (130-400); RBC 4.65 10^6/uL (3.93-5.22); RDW 12.3 % (11.7-14.6); RDW-SD 40.6 fL; WBC 5.66 10^3/uL (4.4-10.8)
[2020-09-13 18:37] LABS: ALT 28 U/L (14-59); AST 17 U/L (15-37); Anion Gap 2.8 mmol/L (3-11); BUN 12 mg/dL (7-18); CO2 35.2 mmol/L (21.0-32.0); Calcium 9.4 mg/dL (8.5-10.1); Chloride 106 mmol/L (98-107); Glucose 118 mg/dL (74-106); HDL Cholesterol 56 mg/dL (40-60); LDL CHOLESTEROL 86 mg/dL (<100); Potassium 4.8 mmol/L (3.5-5.1); Sodium 144 mmol/L (136-145)
[2020-09-13 18:49] LABS: Creatine Kinase 54 U/L (26-192)
[2020-09-14 17:26] LABS: CEA 2.3 ng/mL (See Note)
== END 2020-09-13 14:58 | disposition home or self-care (01) ==
LOC: NCHCN 14:57
PROVIDERS: PCP Nurse Practitioner Family; Visit Provider Nurse Practitioner Family
DX: I10 Essential (primary) hypertension (principal); F32.0 Major depressive disorder, single episode, mild; G47.8 Other sleep disorders; R06.83 Snoring; R79.89 Other specified abnormal findings of blood chemistry
CPT/HCPCS: 80048; 82550; 83721; 85027; 82378; 83718; 84450; 84460

== ENCOUNTER → 2020-11-03 10:09 | Outpatient (BNVA) | payer MEDICARE, OTHER, SELFPAY | PROVIDERS: PCP Nurse Practitioner Family; Referring Provider Nurse Practitioner Family; Visit Provider Student in an Organized Health Care Education/Training Program | DX: M17.12 Unilateral primary osteoarthritis, left knee (principal); T84.84XA Pain due to internal orthopedic prosthetic devices, implants and grafts, initial encounter; T84.82XA Fibrosis due to internal orthopedic prosthetic devices, implants and grafts, initial encounter; Z96.651 Presence of right artificial knee joint; M25.561 Pain in right knee | CPT/HCPCS: 20610; 99213; J1040 ==

== ENCOUNTER 2020-11-30 03:39 | Inpatient (IN) | payer MEDICARE, OTHER, SELFPAY ==
[2020-11-30 03:40] VITALS: BP 160/74; PULSE 78; RESP 20; TEMP 36.7; O2SAT 96
--- NOTE | 2020-11-30 04:00 | DI.RAD_ITS ---
Exam(s) XR KNEE LT 3V AP,LAT,JJ EXAM: XR KNEE LT 3V AP,LAT,JJ CLINICAL HISTORY: pain. TECHNIQUE: 2D digital imaging was performed. COMPARISON: CR XR KNEE RT 3V AP,LAT,JJ from 05/12/2020 FINDINGS: BONES: No acute fracture is present. No bony destructive lesion is seen. JOINTS: The knee is normally aligned. There is a small joint effusion. There are moderately severe d egenerative changes of the left knee characterized by joint space narrowing and periarticular spurrin g. The findings are most marked in the medial femoral tibial joint. SOFT TISSUE: Normal. IMPRESSION: 1. Degenerative changes of the left knee. 2. No acute fracture or subluxation. DATA REPOSITORY: RADIATION DOSE DELIVERED:
--- NOTE | 2020-11-30 04:04 | ED.GENADUL_ITS ---
Discharge Plan Disposition Patient Disposition: [facility] INPATIENT Condition: Improving Discharge Details Clinical Impression: Osteoarthritis of left knee, Inability to ambulate due to left knee Admit Date/Time: 11/30/20 17:15 Admit Provider: Epifanio Zhang Attending Provider: Epifanio Zhang Primary Care Provider: Mary Barton ED Provider: Reuben Milner Discharge Data Discharge Date/Time-TO BE ENTERED AT DEPARTURE: 11/30/20 07:39 Medical Decision Making 4:18?70-year-old female with history of osteoarthritis of the left knee here with pain in her left knee and inability to flex started around 730 last night. No warmth or erythema or appreciable swelling of the knee. Consider meniscal injury versus acute exacerbation of her arthritis. Plan to obtain x-ray. I will give Toradol 30 mg IM and oxycodone 5 mg p.o. for pain. 5:55 --x-ray of the knee was reviewed and interpreted by me: No acute fracture, degenerative arthritic changes. Patient was able to flex her knee slightly but unable to bear weight. Nursing attempted to ambulate the patient with walker and cane and unfortunately she is unable to do so. Patient will not tolerate crutch walking. Plan to hospitalize for ambulatory dysfunction. Patient will hopefully benefit from continued analgesic treatment and physical therapy. I called and spoke with Dr. Zhang, on-call hospitalist, he will evaluate the patient for admission. HPI General Mode of arrival: EMS . Date/Time Provider Initiated Documentation: 11/30/20 04:01 . Limitations to Documentation: no limitations . Information obtained by: patient . HPI Narrative: 70-year-old female with history of knee arthritis, presents with chief complaint of left knee pain. Patient notes around 7:30 PM last night while lying in bed she noted that her legs seem to lock up. She has had severe pain in her knee with inability to flex since this time. She has had difficulty ambulating as a result of this. Pain is constant. No associated fever. No known recent trauma. Related Data Home Medications Medication Instructions Recorded Confirmed aspirin [Aspirin Low-Strength] 81 mg PO DAILY tab-cap 09/18/12 11/30/20 losartan [Cozaar] 50 mg PO DAILY tab-cap 03/26/16 11/30/20 simvastatin 40 mg PO DAILY tab-cap 03/26/16 11/30/20 calcium carbonate [Tums] 400 - 800 mg PO PRN PRN 07/30/18 11/30/20 cholecalciferol (vitamin D3) 1,000 unit PO DAILY 07/30/18 11/30/20 [Vitamin D3] rizatriptan [Maxalt-INSIDE SALES CONSULTANT] 5 mg PO .UP TO TWO DAILY PRN 07/30/18 11/30/20 escitalopram oxalate 5 mg tablet 5 mg PO DAILY 02/04/20 11/30/20 levothyroxine 50 mcg tablet 50 mcg PO DAILY 02/04/20 11/30/20 gkawgzgbdfqj-scoybaup-ffpwzvd-folic 1 tab PO DAILY 02/04/20 11/03/20 acid 400 mcg-vit K1 20 mcg tablet meloxicam 15 mg tablet 15 mg PO DAILY #30 tab 03/18/20 11/30/20 buspirone 10 mg tablet 10 mg PO BID 11/03/20 11/30/20 docusate sodium [Colace] 100 mg PO TID PRN PRN #0 cap 12/01/20 lidocaine 1 patch TOPICAL Q24H #30 ea 12/01/20 oxycodone-acetaminophen 1 - 2 tab PO TID PRN PRN #30 tab 12/01/20 MDD 30 mg of oxycodone Previous Rx's Medication Instructions Recorded meloxicam 15 mg tablet 15 mg PO DAILY #30 tab 03/18/20 docusate sodium [Colace] 100 mg PO TID PRN PRN #0 cap 12/01/20 lidocaine 1 patch TOPICAL Q24H #30 ea 12/01/20 oxycodone-acetaminophen 1 - 2 tab PO TID PRN PRN #30 tab 12/01/20 MDD 30 mg of oxycodone Allergies Allergy/AdvReac Type Severity Reaction Status Date / Time nickel [Nickel] Allergy Mild Unverified 11/03/20 10:17 sulfamethoxazole AdvReac Unknown Unverified 11/03/20 10:17 [From Bactrim] trimethoprim [From Bactrim] AdvReac Unknown Unverified 11/03/20 10:17 aripiprazole AdvReac Verified 11/03/20 10:17 bupropion [From Wellbutrin] AdvReac CONFUSION Verified 11/03/20 10:17 General Stated Complaint: Orthopedic TIFFANY: 4 Review of Systems Constitutional Constitutional: Denies fever(s) Musculoskeletal Musculoskeletal: Reports as per HPI, Denies numbness and Denies tingling Integumentary/Breasts Skin/Breast: Denies rash Neurologic Neurologic: Denies numbness, Denies sensory deficit and Denies tingling [facility] Medical History Blood glucose elevated Cortical cataract of left eye Depression Enlarged liver History of colon cancer Hyperlipemia Hypertension Nuclear sclerotic cataract of left eye Obesity Posterior subcapsular age-related cataract of left eye Tricuspid regurgitation Surgical History History of hemicolectomy Status post cataract extraction and insertion of intraocular lens of left eye (08/04/18) Status post cataract extraction and insertion of intraocular lens of right eye (08/18/18) Social History Smoking/Tobacco Use Status: Former Tobacco Use Smoking risk assessment performed?: Yes Alcohol Intake: never Drug use: Occasionally Substance use type: marijuana Do you feel safe at home: Yes Do you feel safe in your relationship?: Yes Exam Const General: cooperative HENMT Mouth: moist mucous membranes Eyes Conjunctivae: normal conjunctivae Sclera: normal sclerae Cardio Rate: regular rate and not tachycardic Rhythm: regular rhythm Pulses: dorsalis pedis present on the left 2+ Skin General skin exam: no rashes or lesions noted Neuro General: patient alert, patient awake and tone normal Extrem Left lower extremity: knee Details: tenderness Location: of the patella and of the medial joint line, abnormal ROM and other (knee in extension); no swelling and no unusual warmth and lower leg Details: no tenderness Psych Appearance: grossly normal Mental Status: mental status grossly normal Course Vital Signs Vital signs: Vital Signs Temperature 36.7 C 11/30/20 03:40 Pulse 78 11/30/20 03:40 Respiratory Rate 20 11/30/20 03:40 Blood Pressure 160/74 H 11/30/20 03:40 Pulse Oximetry 96 11/30/20 03:40 Temperature 36.7 C 11/30/20 03:40 Temperature Source Skin 11/30/20 03:40 Pulse 78 11/30/20 03:40 Respiratory Rate 20 11/30/20 03:40 Respiratory Effort 11/30/20 03:48 Blood Pressure 160/74 H 11/30/20 03:40 Blood Pressure Position Sitting 11/30/20 03:40 Pulse Oximetry 96 11/30/20 03:40 Oxygen Delivery Method Room Air 11/30/20 03:40 Oxygen Flow Rate 0 11/30/20 03:40 Pain Level 10 11/30/20 03:40
[2020-11-30] MEDS: Ketorolac 30 MG/ML VIAL IM (04:08)
[2020-11-30] MEDS: oxyCODONE 5 MG TAB PO (04:09)
--- NOTE | 2020-11-30 05:50 | NUR.NOTE ---
Pt able to bend knee, reports pain improved when moving knee in bed. Attempted to ambulate pt with walker. Remains unable to bear weight when standing, pt increases to 10/10. p to commode, back to bed with 2 max assist. MD Milner aware.
--- NOTE | 2020-11-30 05:51 | NUR.NOTE ---
Pt offered crutches, states she feels she woud not be able to use them , has cane at home.
--- NOTE | 2020-11-30 06:10 | DI.VRAD_ITS ---
PROCEDURE INFORMATION: Exam: XR Left Knee Exam date and time: 11/30/2020 4:04 AM Age: 70 years old Clinical indication: Left; Patient HX: L knee pain, difficulty bending, no trauma TECHNIQUE: Imaging protocol: XR Left knee. Views: 3 views. COMPARISON: CR XR KNEE LT 3V AP,LAT,JJ 12/23/2019 3:27 PM FINDINGS: Limited due to positioning on the lateral film Bones/joints: Question worsening degenerative changes at the patellofemoral compartment. Minimal lateral subluxation of the distal femur is grossly stable. No acute fracture Soft tissues: No concerning abnormalities IMPRESSION: Question worsening degenerative changes at the patellofemoral compartment. Limited due to positioning on the lateral film as described Grossly stable chronic findings Dictated and Authenticated by: Yuval Morin MD. Ordering:RUPERTO Alexis MD
[2020-11-30 06:32] VITALS: BP 120/62; PULSE 66; RESP 16; O2SAT 94
[2020-11-30 07:14] LABS: Source Nasal/Nares
[2020-11-30 07:32] VITALS: BP 130/70; PULSE 67; TEMP 36.4; O2SAT 96
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
--- OUTSIDE RECORDS SUMMARY | 2020-11-30 07:43 | XMS_ITS ---
:1950 Author Care Team Providers Name Role Phone [facility] MEDICAL RECORDS Primary Care Provider [phone] EARL VAN HIDE EXAMINER Primary Care Provider [phone] Allergies Code Code System Name Reaction Severity Status Onset 995200 RxNorm Bactrim ? ? Active ? Medications Name Status Start Date Stop Date ? ? Artificial Tears (glycerin-peg) 1 %-0.3 Active ? Not available % eye drops aspirin Active ? Not available 81mg daily buspirone 5 mg tablet Active ? Not availa ble Take 1 tablet twice a day by oral route. cannabidiol (CBD) oral oil Active ? Not a vailable Take by oral route. Cozaar Active ? Not available 50mg daily Cozaar 50 mg tablet Active ? Not availabl e Take 1 tablet every day by oral route. escitalopram 20 mg tablet Active ? Not av ailable Take 1 tablet every day by oral route. furosemide Active ? Not available 20mg daily Uxqdmytwulm-Wlenqfwnejl-IMZ Complex 375 mg-500 mg-15 mg-0.5 mg t ablet Active ? Not available Take by oral route. levothyroxine 50 mcg capsule Active ? Not available Take 1 capsule every day by oral route. Maxalt 5 mg tablet Active ? Not available Take 1 tablet by oral route. Maxalt-CAMPER ASSEMBLER Active ? Not available 5mg PRN sertraline Active ? Not available 100mg daily simvastatin Active ? Not available 40mg daily simvastatin 40 mg tablet Active ? Not timur ilable Take 1 tablet every day by oral route. tinidazole Completed ? 11/08/2020 500mg- 2 tabs in AM 2 tabs in PM with food tramadol Completed ? 11/08/2020 50mg daily PRN Tums 500 500 mg calcium (1,250 mg) chewable tablet Active ? Not available Take by oral route. Vitamin D Active ? Not available 1,000 units a day zolpidem 5 mg tablet Active ? Not availab le take 1-2 PO night of sleep study if needed Problems Name Status Onset Date Source ? [...] Hysterectomy Active 04/09/2018 ? Procedures None recorded. Results Lab Results None recorded. 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 Social History Tobacco Smoking Status Never Smoker Vaccine List None recorded. Plan of Care Reminders Provider Appointments None ? ? recorded. Lab None ? ? recorded. Referral None ? ? recorded. Procedures None ? ? recorded. Surgeries None ? ? recorded. Imaging None ? ? recorded. Vitals Height Weight BMI Blood Pressure 154.94 cm 107.95 kg 45 kg/m2 123/65 mm[Hg]
[2020-11-30 08:04] LABS: ESR 10 mm/hr (0-30)
[2020-11-30 08:05] LABS: Abs Immature Grans 0.01 10^3/uL (0.0-0.06); Absolute Basophil Count 0.03 10^3/uL (0.0-0.2); Absolute Eosinophil Count 0.17 10^3/uL (0.0-0.7); Absolute Lymphocyte Count 1.76 10^3/uL (1.2-3.4); Absolute Monocyte Count 0.45 10^3/uL (0.1-0.8); Absolute Neutrophil Count 3.45 10^3/uL (1.2-6.7); Basophils % 0.5; Eosinophils % 2.9; HCT 39.7 % (36.0-46.0); HGB 12.8 g/dL (11.2-15.7); Immature Grans % 0.2; MCH 29.8 pg (27.0-33.0); MCHC 32.2 % (32.0-36.0); MCV 92.3 fL (80-95); Monocytes % 7.7; Neutrophils % 58.7; Nucleated RBC 0 %; Platelet Count 152 10^3/uL (130-400); RDW 13.1 % (11.7-14.6); RDW-SD 44.3 fL; WBC 5.87 10^3/uL (4.4-10.8)
[2020-11-30 08:14] LABS: Anion Gap 9.4 mmol/L (3-11); BUN 17 mg/dL (7-18); C-Reactive Protein 0.06 mg/dL (0.0-0.3); CO2 28.6 mmol/L (21.0-32.0); CREATININE 1.2 mg/dL (0.55-1.02); Calcium 8.8 mg/dL (8.5-10.1); Chloride 105 mmol/L (98-107); Estimated GFR 44.68 (mL/min/1.73m2); Glucose 108 mg/dL (74-106); Magnesium 2.1 mg/dL (1.8-2.4); Sodium 143 mmol/L (136-145)
[2020-11-30 08:17] LABS: Uric Acid 5.7 mg/dL (2.6-6.0)
[2020-11-30 08:19] LABS: ALT 23 U/L (14-59); AST 12 U/L (15-37); Albumin 3.5 g/dL (3.4-5.0); Alkaline Phosphatase 62 U/L (46-116); Bilirubin, Direct 0.1 mg/dL (0.0-0.2); Bilirubin, Total 0.4 mg/dL (0.2-1.0); Total Protein 6.6 g/dL (6.4-8.2)
[2020-11-30 08:38] LABS: Procalcitonin < 0.1 ng/mL
--- NOTE | 2020-11-30 08:43 | W.PM.HP.N ---
Date of service: 11/30/20 Time of Service: 08:43 Assessment and Plan Assessment and plan (1) Inability to ambulate due to left knee: Status: Acute (2) Osteoarthritis of left knee: Status: Acute Assessment and plan: It is unclear why her left knee has gotten worse. Will check labs and have orthopedic consult and physical therapy consult. She may need bilateral knee replacements soon. She does live by herself. History of Present Illness History of Present Illness Chief Complaint: Left knee pain Narrative: This 70-year-old female has acute left knee pain. She has had no recent injury. She has a history of right knee replacement but has had problems with because of decreased range of motion to only about 50 degrees. She had her orthopedic surgeon which considered sending her to [facility] for a right total knee replacement. However she has chronic left knee arthritis also and last night about 530 to 6:00 she developed increased left leg pain in the knee and could not bear weight on it. She said she was trapped in her chair last night saying called her son about 2 AM and she came to the emergency department. A knee x-ray shows arthritis. She has had no systemic symptoms. She had a recent knee injection with the orthopedic surgeon but does not think it has helped much. Review of Systems Constitutional Constitutional: Denies body ache(s), Denies chills and Denies fever(s) Cardiovascular Cardiovascular: Denies chest pain and Denies dyspnea Respiratory Respiratory: Denies cough and Denies dyspnea Gastrointestinal Gastrointestinal: Denies diarrhea, Denies nausea and Denies vomiting Genitourinary Genitourinary: Denies difficulty voiding Musculoskeletal Musculoskeletal: Reports arthralgias Neurologic Neurologic: Denies memory loss and Denies sensory deficit Psychiatric Psychiatric: Denies memory loss [facility] Medical History Blood glucose elevated Cortical cataract of left eye Depression Enlarged liver History of colon cancer Hyperlipemia Hypertension Nuclear sclerotic cataract of left eye Obesity Posterior subcapsular age-related cataract of left eye Tricuspid regurgitation Surgical History History of hemicolectomy Status post cataract extraction and insertion of intraocular lens of left eye (08/04/18) Status post cataract extraction and insertion of intraocular lens of right eye (08/18/18) Social History Smoking/Tobacco Use Status: Former Tobacco Use Smoking risk assessment performed?: Yes Alcohol Intake: never Drug use: Occasionally Substance use type: marijuana Do you feel safe at home: Yes Do you feel safe in your relationship?: Yes Meds Allergies and Home Medications Allergies Allergy/AdvReac Type Severity Reaction Status Date / Time nickel [Nickel] Allergy Mild Unverified 11/03/20 10:17 sulfamethoxazole AdvReac Unknown Unverified 11/03/20 10:17 [From Bactrim] trimethoprim [From Bactrim] AdvReac Unknown Unverified 11/03/20 10:17 aripiprazole AdvReac Verified 11/03/20 10:17 bupropion [From Wellbutrin] AdvReac CONFUSION Verified 11/03/20 10:17 Home Medications Medication Instructions Recorded Confirmed Type aspirin [Aspirin Low-Strength] 81 mg PO DAILY tab-cap 09/18/12 11/30/20 History losartan [Cozaar] 50 mg PO DAILY tab-cap 03/26/16 11/30/20 History simvastatin 40 mg PO DAILY tab-cap 03/26/16 11/30/20 History calcium carbonate [Tums] 400 - 800 mg PO PRN PRN 07/30/18 11/30/20 History cholecalciferol (vitamin D3) 1,000 unit PO DAILY 07/30/18 11/30/20 History [Vitamin D3] rizatriptan [Maxalt-ACOUSTIC ENGINEER] 5 mg PO .UP TO TWO DAILY PRN 07/30/18 11/30/20 History escitalopram oxalate 5 mg tablet 5 mg PO DAILY 02/04/20 11/30/20 History levothyroxine 50 mcg tablet 50 mcg PO DAILY 02/04/20 11/30/20 History phnoanfsgmar-ijdpcmca-excqrza-folic 1 tab PO DAILY 02/04/20 11/03/20 History acid 400 mcg-vit K1 20 mcg tablet meloxicam 15 mg tablet 15 mg PO DAILY #30 tab 03/18/20 11/30/20 Rx buspirone 10 mg tablet 10 mg PO BID 11/03/20 11/30/20 History Exam Const General: cooperative, no acute distress and well developed Nutritional Appearance: obese Orientation: alert, awake and oriented x3 Neck Neck: normal visual inspection and no lymphadenopathy Resp Effort & Inspection: normal respiratory effort, able to speak in complete sentences and no cough Auscultation: clear to auscultation bilaterally Cardio Jugular venous pressure: no JVD Rate: regular rate Rhythm: regular rhythm Heart Sounds: no click, no gallops and no murmurs GI Inspection: normal to inspection and non-distended Palpation: soft and nontender Neuro General: patient alert, patient awake and patient oriented x3 Speech: speech normal Sensory Exam: no sensory deficits noted Extrem Left lower extremity: no edema Other: left knee is non tender to palpation. No knee effusion. She has pain with left leg elevation. No calf tenderness. Results Labs Result diagrams: 11/30/20 07:55 11/30/20 07:55 Labs: Laboratory Results - last 24 hr 11/30/20 11/30/20 11/30/20 06:52 07:55 07:55 WBC RBC Hgb Hct MCV MCH MCHC RDW Plt Count MPV Immature Gran % Neutrophils % Lymphocytes % Monocytes % Eosinophils % Basophils % Nucleated RBC % Absolute Neutrophils Absolute Lymphocytes Absolute Monocytes Absolute Eosinophils Absolute Basophils ESR Sodium 143 Potassium 4.0 Chloride 105 Carbon Dioxide 28.6 Anion Gap 9.4 BUN 17 Creatinine 1.2 H Estimated GFR/1.73 m2 44.68 Glucose 108 H Uric Acid Calcium 8.8 Magnesium 2.1 Total Bilirubin 0.4 Conjugated Bilirubin 0.1 AST 12 L ALT 23 Alkaline Phosphatase 62 C-Reactive Protein 0.06 Total Protein 6.6 Albumin 3.5 Procalcitonin COVID-19 Source Nasal/Nares 11/30/20 11/30/20 11/30/20 07:55 07:55 07:55 WBC 5.87 RBC 4.30 Hgb 12.8 Hct 39.7 MCV 92.3 MCH 29.8 MCHC 32.2 RDW 13.1 Plt Count 152 MPV 11.0 Immature Gran % 0.2 Neutrophils % 58.7 Lymphocytes % 30.0 Monocytes % 7.7 Eosinophils % 2.9 Basophils % 0.5 Nucleated RBC % 0 Absolute Neutrophils 3.45 Absolute Lymphocytes 1.76 Absolute Monocytes 0.45 Absolute Eosinophils 0.17 Absolute Basophils 0.03 ESR 10 Sodium Potassium Chloride Carbon Dioxide Anion Gap BUN Creatinine Estimated GFR/1.73 m2 Glucose Uric Acid Calcium Magnesium Total Bilirubin Conjugated Bilirubin AST ALT Alkaline Phosphatase C-Reactive Protein Total Protein Albumin Procalcitonin < 0.1 COVID-19 Source 11/30/20 07:55 WBC RBC Hgb Hct MCV MCH MCHC RDW Plt Count MPV Immature Gran % Neutrophils % Lymphocytes % Monocytes % Eosinophils % Basophils % Nucleated RBC % Absolute Neutrophils Absolute Lymphocytes Absolute Monocytes Absolute Eosinophils Absolute Basophils ESR Sodium Potassium Chloride Carbon Dioxide Anion Gap BUN Creatinine Estimated GFR/1.73 m2 Glucose Uric Acid 5.7 Calcium Magnesium Total Bilirubin Conjugated Bilirubin AST ALT Alkaline Phosphatase C-Reactive Protein Total Protein Albumin Procalcitonin COVID-19 Source Last Vital Signs Temp 36.4 C L 11/30/20 07:32 Pulse 67 11/30/20 07:32 Resp 16 11/30/20 06:32 BP 130/70 11/30/20 07:32 Pulse Ox 96 11/30/20 07:32
[2020-11-30 09:18] VITALS: BP 126/73; PULSE 61; RESP 16; TEMP 36.5; O2SAT 96
[2020-11-30 09:22] LABS: COVID-19 PCR Negative (Negative)
--- NOTE | 2020-11-30 10:05 | IN_ITS ---
Date of service: 11/30/20 Time of Service: 10:05 PT Notes Visit Reasons: Left Knee Pain Physical Therapy Inpatient Initial Evaluation Date: 11/30/2020 Referring Doctor: Aide Cook MD PT Orders: PT CONSULT: Limited ability Precautions: Fall. Standard. Activity as tolerated. Patient Profile/Admitting Diagnosis: Right back is a 70-year-old female presented to the ED with chief complaint of left knee pain and inability to bend same knee. Patient is admitted for diagnosis of osteoarthritis of the left knee and inability to ambulate. 11/30/2020 PMHX: Medical History Blood glucose elevated Cortical cataract of left eye Depression Enlarged liver History of colon cancer Hyperlipemia Hypertension Nuclear sclerotic cataract of left eye Obesity Posterior subcapsular age-related cataract of left eye Tricuspid regurgitation Surgical History History of hemicolectomy Status post cataract extraction and insertion of intraocular lens of left eye (08/04/18) Status post cataract extraction and insertion of intraocular lens of right eye (08/18/18) Social History/Home Situation: Lives alone in a private home with 4 steps to enter with 1 rail. Does not use any ambulatory device prior to admission. Equipment Owned/DME: None Subjective: Agreeable to PT consult. Patient is happy with being able to stand up and do short distance in-room ambulation with PT this morning using her front-wheel walker. Reports that having a walker does make the difference in off-loading the left knee. She states that she has had 4 falls in the past year due to the left knee giving way unpredictably. Elaborates that she has had that right knee replaced back in 2004 with revision a couple of years after. Left knee has had 2 steroid injections but she states that the last 1 has not helped with pain relief at all. She indicates that Dr. Tavares has been following the condition of her left knee and is looking at potential surgery but that he wants the issue with the R knee resolved at [facility] first before considering L TKA. Feels that having the L knee operated on will really help with her ability to thrive at home. Emphasizes that the unpredictability of her L knee giving way really shoots up her anxiety level especially after what happened the prior night that led to this admission. Further reports that her weak upper extremities do not help with her situation right now. Objective: General Observation: Obese. No lines seen. Mental Status: Alert and oriented as to person, place, time, and purpose. Able to pay attention, focus, and respond appropriately. Pain: 9/10 in left knee with weight bearing ROM: Right Upper Extremity: Shoulder Flexion WFL. Shoulder abduction WFL. Elbow flexion WFL. Wrist flexion WFL. Functional opening and closing of hand WFL. Left Upper Extremity: Shoulder Flexion WFL. Shoulder abduction WFL. Elbow flexion WFL. Wrist flexion WFL. Functional opening and closing of hand WFL. Right Lower Extremity: Hip flexion WFL. Hip abduction WFL. Knee flexion to 50 degrees. Ankle dorsiflexion WFL. Ankle plantarflexion WFL. Left Lower Extremity: Hip flexion WFL. Hip abduction WFL. Knee flexion to 90 degrees. Ankle dorsiflexion WFL. Ankle plantarflexion WFL. Strength: Right Upper Extremity: Shoulder flexors 4-/5. Shoulder abductors 4-/5. Elbow flexors 4/5. Elbow extensors 4/5. Engineering Inspector strong. Left Upper Extremity: Shoulder flexors 4-/5. Shoulder abductors 4-/5. Elbow flexors 4/5. Elbow extensors 4/5. Engineering Inspector strong. Right Lower Extremity: Hip flexors 3+/5. Hip abductors 3+/5. Knee flexors 3-/5. Knee extensors 3+/5. Ankle dorsiflexors 3+/5. Ankle plantarflexors 3+/5. Left Lower Extremity: Hip flexors 3+/5. Hip abductors 3+/5. Knee flexors 3-/5. Knee extensors 3+/5. Ankle dorsiflexors 3+/5. Ankle plantarflexors 3+/5. Bed Mobility/Transfers: Rolling minimal assist with minimal cues for safe/correct technique Sit to supine with minimal assist to left with minimal cues for safe/correct technique Sit to stand with minimal assist with minimal cues for safe/correct technique Stand to sit with minimal assist with minimal cues for safe/correct technique Bed to bedside commode with minimal assist with minimal cues for safe/correct technique Bedside commode to bed with minimal assist with minimal cues for safe/correct technique Gait: Instructed patient with level surface ambulation of 8 steps +1 turn +2 step backs requiring minimal assist. Felicitas decreased significantly. Step height decreased. Step length creased. Reported 9/10 out of 10 pain on anterior left knee with weight bearing. Balance: Static Sitting: Normal Dynamic Sitting: Normal Static Standing: Fair Dynamic Standing: Fair Special Tests: Mobility Limitations Standardized Measure [facility] AM-PAC 6 clicks Basic Mobility Inpatient Short Form: Raw Score: 16 CMS Score: 54% deficit Informed Consent/Education: Patient was instructed in purpose of PT consult and plan of care. Agreeable to proceed with established PT POC to achieve personal goals. Assessment: Pari demonstrates significant functional mobility decline due to persistent pain in the left aggravated by weight bearing. She reported good stability and some relief from pain but use of a front wheeled walker during short distance ambulation. B knee Patient presents with clinical signs and symptoms consistent with current/admitting diagnoses that have resulted to mobility limitations, gait instability, generalized weakness, and overall ADL decline as demonstrated by the following impairment level findings: 1. Decreased strength to B knee major muscle groups 2. Impaired standing balance 3. Impaired activity tolerance 4. Limitation of joint range of motion in B knees 5. Swelling in L knee 6. Pain in left knee 7. Obesity Impairments are contributing to the following functional limitations: 1. Decline in bed mobility skills 2. Decline in transfer skills 3. Difficulty with ambulation without assistive device and physical assistance 4. Increased completion time for mobility ADL performance 5. Increased risk for falls 6. Difficulty with managing steps alone safely Patient is assessed as a 69278 moderate complexity based on the following: History: 70-year-old female with past medical history as indicated above Examination: Demonstrable impairment in strength, balance, and mobility level with underlying impairments and functional limitations as exhibited above as well as deficit score of 54% utilizing the [facility] Mobility Inpatient Short Form Presentation: Evolving Decision Makin moderate complexity Goals: Goals X1 week 1. Supine-Sit independent 2. Sit-Supine independent 3. Sit-Stand independent 4. Stand-Sit independent with front wheeled walker 5. Bed-Chair independent with front wheeled walker 6. Chair-Bed independent with front wheeled walker 7. Independent gait on level surface with use of front wheeled walker for at least 15 feet without report of pain nor dyspnea 8. Independent stair negotiation while holding onto 1 rail for at least 5 steps without report of pain nor dyspnea 9. Independent with home exercise program 10. Good static and dynamic standing balance/tolerance Plan of Care/Treatment Plan: 1-2x/day, 7 days/week x 1 week. Plan of care has been reviewed with the GROUND WATER TECHNICIAN providing the service under Physical Therapy direction. Initiate Physical Therapy intervention for pain management as needed, strengthening, bed mobility, transfers, gait, stairs, balance training, and use of assistive device. DISCHARGE RECOMMENDATIONS: Patient will benefit from care home facility placement for continued skilled physical therapy services in order to progress mobility level, strength, and balance in preparation for a safe discharge to home. TREATMENT CODE/TIME: 93041 x 20 minutes, 76424 x 11 minutes and 10:05 AM. Thank you for the opportunity to participate in the care of this patient. Alexandra Moore PT, DPT, CLT [facility] [place], [place]
[2020-11-30] MEDS: Losartan 50 MG TAB PO (11:43)
[2020-11-30] MEDS: busPIRone 5 MG TAB 10 MG PO ×2 (11:43→20:59)
[2020-11-30] MEDS: Escitalopram 10 MG TAB 5 MG PO (12:04)
[2020-11-30] MEDS: oxyCODONE 5 mg/Acetaminophen 325 mg TAB 1 TAB PO (13:17)
--- NOTE | 2020-11-30 14:33 | PT.INTREAT ---
Date of service: 11/30/20 Time of Service: 13:55 PT Notes Visit Reasons: Left Knee Pain Inpatient Physical Therapy Treatment Note [facility] Date: 11/30/2020 PRECAUTIONS: Fall, WBAT L, activity as tolerated SUBJECTIVE: Pari states that she continues to experience significant pain in her L knee with all weight bearing. She reports that she has had pain previously, but nothing like the pain she is having now. OBJECTIVE: PAIN: Patient c/o significant L knee pain with gait training and ther ex BED MOBILITY/TRANSFERS Supine-sit: I with HOB flat Sit-supine: I with HOB flat Sit-stand: SBA Stand-sit: SBA GAIT Assistive Device: FWW Weight bearing: WBAT L Assist: SBA Distance: ~20' Deviation: Increased L knee pain, standing rest x2 THEREX: Patient was instructed in a supine LE strengthening and stabilization program, as per flow sheet. TOILETING: Patient toileted independently ASSESSMENT: Patient tolerated session with c/o increased L knee pain with gait training and ther ex. She was able to tolerate a progression in gait distance with FWW support and increased pain. PLAN: Continue with gait training with FWW support and global strengthening. TREATMENT CODE/TIME: 25 minutes; 62850, [id number] (13:55)
--- NOTE | 2020-11-30 15:17 | CHAPLAIN ---
I had a brief visit with Pari as she was trying to rest. I explained my role and offered support.
[2020-11-30 15:40] VITALS: BP 116/73; PULSE 68; RESP 17; TEMP 36.5; O2SAT 94
--- NOTE | 2020-11-30 16:22 | W.PM.PROGNOT ---
Date of Service Date of service: 11/30/20 Time of Service: 16:22 Subjective Subjective Interval history since last seen: Mr Lackey states her L knee pain is a little better since initiation of percocet, but not enough where she can walk on it comfortably. All she can do is walk to the door in her room and this is with a lot of pain. Discussed case with Dr Schmitt. Recommended dry CT left knee. Thet patient will likely need subacute rehab and will need to follow up with [facility] ortho. Will increase percocet, continue meloxicam, add gabapentin. Objective Last Vital Signs Temp 36.5 C 11/30/20 15:40 Pulse 68 11/30/20 15:40 Resp 17 11/30/20 15:40 BP 116/73 11/30/20 15:40 Pulse Ox 94 11/30/20 15:40 Laboratory Results - last 24 hr 11/30/20 11/30/20 11/30/20 06:52 07:55 07:55 WBC RBC Hgb Hct MCV MCH MCHC RDW Plt Count MPV Immature Gran % Neutrophils % Lymphocytes % Monocytes % Eosinophils % Basophils % Nucleated RBC % Absolute Neutrophils Absolute Lymphocytes Absolute Monocytes Absolute Eosinophils Absolute Basophils ESR Sodium 143 Potassium 4.0 Chloride 105 Carbon Dioxide 28.6 Anion Gap 9.4 BUN 17 Creatinine 1.2 H Estimated GFR/1.73 m2 44.68 Glucose 108 H Uric Acid Calcium 8.8 Magnesium 2.1 Total Bilirubin 0.4 Conjugated Bilirubin 0.1 AST 12 L ALT 23 Alkaline Phosphatase 62 C-Reactive Protein 0.06 Total Protein 6.6 Albumin 3.5 Procalcitonin COVID-19 Source Nasal/Nares SARS-CoV-2 (PCR) Negative 11/30/20 11/30/20 11/30/20 07:55 07:55 07:55 WBC 5.87 RBC 4.30 Hgb 12.8 Hct 39.7 MCV 92.3 MCH 29.8 MCHC 32.2 RDW 13.1 Plt Count 152 MPV 11.0 Immature Gran % 0.2 Neutrophils % 58.7 Lymphocytes % 30.0 Monocytes % 7.7 Eosinophils % 2.9 Basophils % 0.5 Nucleated RBC % 0 Absolute Neutrophils 3.45 Absolute Lymphocytes 1.76 Absolute Monocytes 0.45 Absolute Eosinophils 0.17 Absolute Basophils 0.03 ESR 10 Sodium Potassium Chloride Carbon Dioxide Anion Gap BUN Creatinine Estimated GFR/1.73 m2 Glucose Uric Acid Calcium Magnesium Total Bilirubin Conjugated Bilirubin AST ALT Alkaline Phosphatase C-Reactive Protein Total Protein Albumin Procalcitonin < 0.1 COVID-19 Source SARS-CoV-2 (PCR) 11/30/20 07:55 WBC RBC Hgb Hct MCV MCH MCHC RDW Plt Count MPV Immature Gran % Neutrophils % Lymphocytes % Monocytes % Eosinophils % Basophils % Nucleated RBC % Absolute Neutrophils Absolute Lymphocytes Absolute Monocytes Absolute Eosinophils Absolute Basophils ESR Sodium Potassium Chloride Carbon Dioxide Anion Gap BUN Creatinine Estimated GFR/1.73 m2 Glucose Uric Acid 5.7 Calcium Magnesium Total Bilirubin Conjugated Bilirubin AST ALT Alkaline Phosphatase C-Reactive Protein Total Protein Albumin Procalcitonin COVID-19 Source SARS-CoV-2 (PCR)
[2020-11-30 16:40] LABS: Bilirubin Negative (Negative); Blood Trace-intact (Negative); Clarity Clear (Clear); Glucose Negative (Negative); Ketones Negative (Negative); Leukocyte Esterase Negative (Negative); Nitrite Negative (Negative); Urobilinogen 0.2 EU/dL (Up TO 0.2)
[2020-11-30 17:02] LABS: Bacteria Negative HPF (Negative); C & S Indicated? No; Casts Negative LPF (Negative); Crystals Negative HPF (Negative); Epithelial Cells Few HPF (Negative); Mucus Negative (Negative); Other Cells Negative (Negative); RBC Negative HPF (0-2); WBC Negative HPF (0-5)
--- NOTE | 2020-11-30 17:50 | DI.CT_ITS ---
Exam(s) CT LOWER EXTREMITY LT WO EXAM: CT LOWER EXTREMITY LT WO CLINICAL HISTORY: left knee pain. CT L knee. TECHNIQUE: Imaging Protocol: Axial computed tomography images with coronal and sagittal reformatted images were created and reviewed. CONTRAST MATERIAL: Noncontrast COMPARISON: CT CT LOWER EXTREMITY RT WO from 05/19/2020 CR,XR XR KNEE LT 3V AP,LAT,JJ from 11/30/2020 FINDINGS: A moderate-sized joint effusion is seen. There is no evidence of fracture. Degenerative changes are seen of the patellofemoral and femoral tibial joints. There is narrowing of the medial femoral tibi al joint. There is a subchondral cyst in the posterior tibial plateau. Patellar enthesophytes are s een. A chronic appearing calcification is seen in the region of the femoral intercondylar notch. IMPRESSION: Degenerative changes and joint effusion. No evidence of fracture. RADIATION DOSE DELIVERED: 199.05mGy.cm Total DLP DATA REPOSITORY: All CT scans at this facility are submitted to the National Radiology Data Registry (NRDR) Dose Index Registry (DIR) with the [employer] (A[employer]). RADIATION OPTIMIZATION: All CT scans at this facility use at least one of these dose optimization te chniques: automated exposure control; mA and/or kV adjustment per patient size (includes targeted exa ms where dose is matched to clinical indication); or iterative reconstruction.
--- NOTE | 2020-11-30 17:57 | DI.VRAD_ITS ---
PROCEDURE INFORMATION: Exam: CT Left Lower Extremity Without Contrast, Knee Exam date and time: 11/30/2020 4:29 PM Age: 70 years old Clinical indication: Other: Left knee pain. ; Patient HX: Xray knee taken earlier ? patella FX TECHNIQUE: Imaging protocol: CT of the Left lower extremity without contrast was performed. Exam focused on the knee. COMPARISON: CR XR KNEE LT 3V AP,LAT,JJ 11/30/2020 4:41 AM FINDINGS: Bones/joints: Again, no acute fracture or dislocation is identified. There is mild narrowing of the medial compartment, with mild tricompartmental periarticular osteophyte formation. Superior and inferior patellar enthesophytes are again present. A subcortical lucent lesion posteriorly in the central tibial plateau is likely a degenerative intraosseous ganglion. A moderate knee joint effusion is present. Soft tissues: There is mild subcutaneous edema anteriorly without discrete collection. IMPRESSION: 1. Degenerative changes as described. 2. Moderate knee joint effusion. 3. No acute fracture or dislocation identified. Dictated and Authenticated by: Marcus Gustafson MD. Ordering:BRETT Noble MD
[2020-11-30] MEDS: Lidocaine 5% Patch 1 PATCH TP (18:12)
[2020-11-30] MEDS: Gabapentin 100 MG CAP PO (20:59)
[2020-11-30] MEDS: Normal Saline Flush 10 ML SYR IVP (21:00)
[2020-11-30] MEDS: Heparin 5,000 UNITS/ML VIAL 5000 UNITS SC (21:28)
[2020-11-30] MEDS: Polyethylene Glycol 3350 17 GM PACKET PO (21:28)
[2020-11-30 23:41] VITALS: BP 112/67; PULSE 72; RESP 16; TEMP 36.4; O2SAT 95
[2020-12-01] MEDS: oxyCODONE 5 mg/Acetaminophen 325 mg TAB 2 TAB PO (05:50)
[2020-12-01] MEDS: Heparin 5,000 UNITS/ML VIAL 5000 UNITS SC (05:50)
[2020-12-01] MEDS: busPIRone 5 MG TAB 10 MG PO (07:41)
[2020-12-01] MEDS: Multivitamin TAB 1 TAB PO (07:42)
[2020-12-01] MEDS: Aspirin 81 MG CHEW PO (07:42)
[2020-12-01] MEDS: Losartan 50 MG TAB PO (07:42)
[2020-12-01] MEDS: Cholecalciferol (Vitamin D3) 1,000 UNIT TAB 1000 UNITS PO (07:42)
[2020-12-01] MEDS: Meloxicam 15 MG TAB PO (07:42)
[2020-12-01] MEDS: Levothyroxine 50 MCG TAB PO (07:43)
[2020-12-01] MEDS: Escitalopram 10 MG TAB 5 MG PO (07:43)
[2020-12-01] MEDS: Gabapentin 100 MG CAP PO (07:43)
[2020-12-01 08:34] VITALS: BP 113/76; PULSE 63; RESP 16; TEMP 36.4; O2SAT 95
--- NOTE | 2020-12-01 09:38 | OCONE_ITS ---
Date of service: 12/01/20 Time of Service: 10:36 History of Present Illness History of Present Illness Chief Complaint: Left knee pain Narrative: Patient describes acute on chronic left knee pain with weightbearing. States similar symptoms happen frequently, but are more short-lived in the past. Has been treated so far nonoperatively for known left knee arthritis. Admitted to the hospital for ambulatory dysfunction yesterday. States she is dramatically improved with absolutely no pain at rest and minimal pain with walking today. Denies any redness, swelling, drainage, fevers, chills, or any trauma. Consult Reason Left knee pain causing inability to ambulate Assessment and Plan Assessment and plan (1) Osteoarthritis of left knee: Status: Acute Assessment and plan: 70 year old female with resolved significant left knee pain likely due to arthritis flare Likely exacerbated by morbid obesity and contralateral right replacement knee dysfunction XRs show moderate degenerative changes. CT negative for any occult fracture. Labwork negative for any infectious or inflammatory process. Would not repeat steroid injection as last one was done less than 1 month ago and patient is interested in knee replacement surgery sooner than later Recommend medical management and mobilization as tolerated. PT/ OOB/ WBAT. Follow up outpatient with [facility] as previously recommended by Dr. Tavares (see his office note 11/03/20 for details) Qualifiers: Osteoarthritis type: primary Qualified Code(s): M17.12 - Unilateral primary osteoarthritis, left knee Review of Systems All systems reviewed & are unremarkable except as noted in HPI and below PFSH Medical History Blood glucose elevated Cortical cataract of left eye Depression Enlarged liver History of colon cancer Hyperlipemia Hypertension Nuclear sclerotic cataract of left eye Obesity Posterior subcapsular age-related cataract of left eye Tricuspid regurgitation Surgical History History of hemicolectomy Status post cataract extraction and insertion of intraocular lens of left eye (08/04/18) Status post cataract extraction and insertion of intraocular lens of right eye (08/18/18) Social History Smoking/Tobacco Use Status: Former Tobacco Use Smoking risk assessment performed?: Yes Alcohol Intake: never Drug use: Occasionally Substance use type: marijuana Do you feel safe at home: Yes Do you feel safe in your relationship?: Yes Exam Narrative Exam Narrative: No acute distress. Walking easily. Nonantalgic gait. Standing without difficulty for prolonged period. Large soft tissue envelope limits specific testing Grossly, left knee without any edema, effusion, erythema, wounds, or drainage. Minimal tenderness medial, lateral, and peripatellar Demonstrates reasonable active range of motion No signs of DVT or infection Results Last Vital Signs Temp 97.7 F 11/30/20 15:40 Pulse 68 11/30/20 15:40 Resp 17 11/30/20 15:40 BP 116/73 11/30/20 15:40 Pulse Ox 94 11/30/20 15:40 Labs Result diagrams: 11/30/20 07:55 11/30/20 07:55 Labs: Laboratory Results - last 24 hr 11/30/20 11/30/20 11/30/20 06:52 07:55 07:55 WBC RBC Hgb Hct MCV MCH MCHC RDW Plt Count MPV Immature Gran % Neutrophils % Lymphocytes % Monocytes % Eosinophils % Basophils % Nucleated RBC % Absolute Neutrophils Absolute Lymphocytes Absolute Monocytes Absolute Eosinophils Absolute Basophils ESR Sodium 143 Potassium 4.0 Chloride 105 Carbon Dioxide 28.6 Anion Gap 9.4 BUN 17 Creatinine 1.2 H Estimated GFR/1.73 m2 44.68 Glucose 108 H Uric Acid Calcium 8.8 Magnesium 2.1 Total Bilirubin 0.4 Conjugated Bilirubin 0.1 AST 12 L ALT 23 Alkaline Phosphatase 62 C-Reactive Protein 0.06 Total Protein 6.6 Albumin 3.5 Procalcitonin Urine Color Urine Clarity Urine pH Ur Specific [place] Urine Protein Urine Ketones Urine Blood Urine Nitrite Urine Bilirubin Urine Urobilinogen Ur Leukocyte Esterase Urine RBC Urine WBC Ur Epithelial Cells Urine Crystals Urine Bacteria Urine Casts Urine Mucus Urine Other Ur Culture Indicated? Urine Glucose COVID-19 Source Nasal/Nares SARS-CoV-2 (PCR) Negative 11/30/20 11/30/20 11/30/20 07:55 07:55 07:55 WBC 5.87 RBC 4.30 Hgb 12.8 Hct 39.7 MCV 92.3 MCH 29.8 MCHC 32.2 RDW 13.1 Plt Count 152 MPV 11.0 Immature Gran % 0.2 Neutrophils % 58.7 Lymphocytes % 30.0 Monocytes % 7.7 Eosinophils % 2.9 Basophils % 0.5 Nucleated RBC % 0 Absolute Neutrophils 3.45 Absolute Lymphocytes 1.76 Absolute Monocytes 0.45 Absolute Eosinophils 0.17 Absolute Basophils 0.03 ESR 10 Sodium Potassium Chloride Carbon Dioxide Anion Gap BUN Creatinine Estimated GFR/1.73 m2 Glucose Uric Acid Calcium Magnesium Total Bilirubin Conjugated Bilirubin AST ALT Alkaline Phosphatase C-Reactive Protein Total Protein Albumin Procalcitonin < 0.1 Urine Color Urine Clarity Urine pH Ur Specific [place] Urine Protein Urine Ketones Urine Blood Urine Nitrite Urine Bilirubin Urine Urobilinogen Ur Leukocyte Esterase Urine RBC Urine WBC Ur Epithelial Cells Urine Crystals Urine Bacteria Urine Casts Urine Mucus Urine Other Ur Culture Indicated? Urine Glucose COVID-19 Source SARS-CoV-2 (PCR) 11/30/20 11/30/20 07:55 14:25 WBC RBC Hgb Hct MCV MCH MCHC RDW Plt Count MPV Immature Gran % Neutrophils % Lymphocytes % Monocytes % Eosinophils % Basophils % Nucleated RBC % Absolute Neutrophils Absolute Lymphocytes Absolute Monocytes Absolute Eosinophils Absolute Basophils ESR Sodium Potassium Chloride Carbon Dioxide Anion Gap BUN Creatinine Estimated GFR/1.73 m2 Glucose Uric Acid 5.7 Calcium Magnesium Total Bilirubin Conjugated Bilirubin AST ALT Alkaline Phosphatase C-Reactive Protein Total Protein Albumin Procalcitonin Urine Color Yellow Urine Clarity Clear Urine pH 6.0 Ur Specific [place] 1.010 Urine Protein Negative Urine Ketones Negative Urine Blood Trace-intact H Urine Nitrite Negative Urine Bilirubin Negative Urine Urobilinogen 0.2 Ur Leukocyte Esterase Negative Urine RBC Negative Urine WBC Negative Ur Epithelial Cells Few Urine Crystals Negative Urine Bacteria Negative Urine Casts Negative Urine Mucus Negative Urine Other Negative Ur Culture Indicated? No Urine Glucose Negative COVID-19 Source SARS-CoV-2 (PCR) Imaging Imaging Studies: Left knee x-rays done yesterday show moderate tricompartmental joint space narrowing, subchondral sclerosis, and marginal osteophyte formation. No acute changes. Left knee CT also done yesterday details above degenerative changes and subch ondral cysts without any visible fracture or soft tissue collection
--- NOTE | 2020-12-01 10:29 | PDOC.CMIN ---
- If Service Date Differs Date of service: 12/01/20 Time of Service: 10:29 Care Management Initial Assess REASON FOR HOSPITALIZATION:: left knee pain PAST MEDICAL HISTORY/PAST SURGICAL HISTORY:: Medical History . Blood glucose elevated. Cortical cataract of left eye. Depression. Enlarged liver. History of colon cancer. Hyperlipemia. Hypertension. Nuclear sclerotic cataract of left eye. Obesity. Posterior subcapsular age-related cataract of left eye. Tricuspid regurgitation. Surgical History . History of hemicolectomy. Status post cataract extraction and insertion of intraocular lens of left eye (08/04/18). Status post cataract extraction and insertion of intraocular lens of right eye (08/18/18) PREVIOUS FUNCTIONAL STATUS/SOCIAL/FAMILY SUPPORTS:: Pari lives alone in [place], [place] She is retired and has difficulty getting around due to significany disease in both of her knees. She uses a cane or ski pole to help with ambulation. pari receives no community services and is independent in the community. CURRENT FUNCTIONAL STATUS:: Pari was preparing for discharge when CM met with her.She was pleasant and described her difficulties with her knees that have been progressing over the past couple of years. She stated that she has an appointment at [facility] at the end of the month with an orthopedic surgeon and plans to have surgery on one or both of her knees soon. Has patient been provided with info about the portal/API?: Yes Did the patient sign up for the portal?: No CODE STATUS:: Full Code INSURANCE COVERAGE / FINANCIAL ISSUES:: Medicare. Juan CURRENT HOME/COMMUNITY SERVICES/EQUIPMENT:: cane PRIMARY CARE PHYSICIAN:: Mary Barton POTENTIAL DISCHARGE NEEDS:: Follow up with PCP and plan of care PATIENT/FAMILY EDUCATION NEEDS:: Review of discharge instructions, limitations, medications, follow up plan, Ask Me Three TRANSPORTATION:: via private vehicle with family PLAN:: Pair will be discharged home with no new services. She will folllow up with her community providers and plan of care and transport with family.
--- NOTE | 2020-12-01 12:20 | W.PM.DS.N ---
Date of service: 12/01/20 Time of Service: 12:20 DS: Diagnosis Discharge Diagnosis (1) Intractable pain: Status: Acute Asessment and Plan: L knee (2) Osteoarthritis of left knee: Status: Chronic (3) Effusion, left knee: Status: Acute (4) Ambulatory dysfunction: Status: Acute (5) Obesity, morbid, BMI 40.0-49.9: Status: Chronic (6) COVID-19 ruled out by laboratory testing: Status: Ruled-out Discharge Plan Disposition Patient Disposition: HOME Condition: Improving Discharge Details Reason For Visit: Left Knee Pain Admit Date/Time: 11/30/20 17:15 Admit Provider: Epifanio Zhang Attending Provider: Epifanio Zhang Primary Care Provider: Mary Barton [facility] Hospital Course: Ms Lackey is a 70 year old female with PMHx of known OA of L knee, as well as h/o hypertension, hyperlipidemia, hypothyroidism, who was a patient on [facility] hospitalist service from 11/30/20 until 12/01/20 for intractable L knee pain due to osteoarthritis with inability to ambulate. Infectious causes were ruled out by bloodwork and clinical exam. This was evaluated by orthopedics, who felt the patient was not a candidate for a joint injection at this point because she had just had a steroid injection less than 1 month ago in the office with Dr Tavares. She does have a small left knee effusion on CT, and occult fracture was ruled out. She was treated with physical therapy, ice, continuation of home meloxicam, addition of percocet, lidocaine patches. While low dose gabapentin was also trialed, it is less likely that this has had a chance to be effective, so it is not getting prescribed on discharge, but could be revisited as outpatient. The patient is feeling much better today and is being discharged home with a walker, with follow up with [facility] orthopedics, where she was previously referred for consideration of revision of her R TKR and new L TKR. The patient would also still like to follow up with Dr Tavares. The patient is going home with a 5 day supply of prn percocet 5/325 mg 1-2 tab PO TID prn pain. She is instructed to follow up with her PCP or orthopedics if pain is not controlled at home. Care for patient as well as completion of her discharge summary on day of discharge took 40 minutes. Home Meds and New Rx's Prescriptions: New lidocaine 5 % Adhesive Patch,Medicated 1 patch topical Q24H Qty: 30 RF: 0 oxycodone-acetaminophen 5-325 mg Tablet 1 - 2 tab PO TID PRN MDD 30 mg of oxycodone PRN (Reason: pain) Qty: 30 RF: 0 docusate sodium [Colace] 100 mg Capsule 100 mg PO TID PRN PRNQty: 0 RF: 0 Continued meloxicam 15 mg tablet 15 mg PO DAILY Qty: 30 RF: 3 escitalopram oxalate [Lexapro] 5 mg tablet 5 mg PO DAILY RF: 0 One-A-Day Women's 50 Plus 400-20 mcg tablet 1 tab PO DAILY RF: 0 levothyroxine 50 mcg tablet 50 mcg PO DAILY RF: 0 buspirone 10 mg tablet 10 mg PO BID RF: 0 aspirin [Aspirin Low-Strength] 81 MG tablet,chewable 81 mg PO DAILY RF: 0 losartan [Cozaar] 50 MG tablet 50 mg PO DAILY RF: 0 simvastatin 40 MG tablet 40 mg PO DAILY RF: 0 calcium carbonate [Tums] 200 mg calcium (500 mg) Tablet,Chewable 400 - 800 mg PO PRN PRNRF: 0 rizatriptan [Maxalt-EVENT SALES ASSISTANT] 5 mg Tablet,Disintegrating 5 mg PO .UP TO TWO DAILY PRNRF: 0 cholecalciferol (vitamin D3) [Vitamin D3] 1,000 unit Capsule 1,000 unit PO DAILY RF: 0 Discharge Instructions Instructions: Oxycodone/Acetaminophen (By mouth), Arthritis (DC) Additional Instructions: Do not drive or drink alcohol while taking oxycodone. Return to the hospital with any fever, bleeding, chest pain, or shortness of breath. Ambulate with a walker. Follow up with your PCP if pain is uncontrolled at home. Follow up with [facility] orthopedics and with Dr Tavares. Referrals: ORTHOPAEDICS,[facility] [OTHER] - Mary Barton [Primary Care Provider] - Andre Tavares MD [ [facility] STAFF PHYSICIAN] - Activity:: Activity as Tolerated Equipment/Supplies:: Walker Diet:: As Tolerated Discharge Orders Discharge Orders: Discharge Order (Routine); Ordered 12/01/20 Ordered By: Aide Cook DS: Summary Time Spent with Patient providing and/or coordinating discharge services: Greater than 30 minutes Status at Discharge Functional status at discharge: uses cane/walker Overall status at discharge: patient is progressing back to baseline Mental Status: mental status grossly normal Speech and Movement: speech and movement normal Mood: congruent mood Affect: normal affect Exam Narrative Exam Narrative: General:Pleasant middle aged female, very pleasant, sitting in a chair, A&Ox3, does not appear uncomfortable HEENT: EOMI, MMM Heart: RRR, no m/r/g Lungs: CTAB Abdomen: soft, nontender, nondistended Extremities: L knee without obvious effusion or erythema and is not unusually warm. Psych Mental Status: mental status grossly normal Speech and Movement: speech and movement normal Mood: congruent mood Affect: normal affect DS: Data Vitals/I&O Vitals and I&O: Vital Signs Temperature 36.4 C L 12/01/20 08:34 Temperature Source Tympanic 12/01/20 08:34 Pulse 63 12/01/20 08:34 Pulse Rhythm Regular 12/01/20 06:10 Respiratory Rate 16 12/01/20 08:34 Respiratory Effort Non-Labored 12/01/20 06:10 Respiratory Depth Normal 12/01/20 06:10 Respiratory Pattern Normal 12/01/20 06:10 Blood Pressure 113/76 12/01/20 08:34 Blood Pressure Position Sitting 11/30/20 03:40 Pulse Oximetry 95 12/01/20 08:34 Oxygen Delivery Method Room Air 12/01/20 08:34 Oxygen Flow Rate 0 12/01/20 08:34 Pain Level 8 12/01/20 08:34 Comment 11/30/20 10:04 Intake & Output 11/30/20 12/01/20 12/01/20 23:59 11:59 23:59 Intake Total 670 / 1040 100 / 100 Output Total 1400 / 1400 1000 / 1000 Balance -730 / -360 -900 / -900 Intake: IV Oral 660 / 1020 100 / 100 Output: Urine 1400 / 1400 1000 / 1000 Other: Urine Color Yellow Yellow Urine Appearance Clear Clear Urine Odor Normal Normal Voiding Methods Bedside Commode Bedside Commode Data Completed and Pending Completed studies during hospitalization [Text1]: XR L knee: 1. Degenerative changes of the left knee. 2. No acute fracture or subluxation. CT L knee: Degenerative changes and joint effusion. No evidence of fracture. Labs on day of discharge: Labs from last 24 hours 11/30/20 14:25 Urine Color Yellow Urine Clarity Clear Urine pH 6.0 Ur Specific [place] 1.010 Urine Protein Negative Urine Ketones Negative Urine Blood Trace-intact H Urine Nitrite Negative Urine Bilirubin Negative Urine Urobilinogen 0.2 Ur Leukocyte Esterase Negative Urine RBC Negative Urine WBC Negative Ur Epithelial Cells Few Urine Crystals Negative Urine Bacteria Negative Urine Casts Negative Urine Mucus Negative Urine Other Negative Ur Culture Indicated? No Urine Glucose Negative [facility] Medical History Blood glucose elevated Cortical cataract of left eye Depression Enlarged liver History of colon cancer Hyperlipemia Hypertension Nuclear sclerotic cataract of left eye Obesity Posterior subcapsular age-related cataract of left eye Tricuspid regurgitation Surgical History History of hemicolectomy Status post cataract extraction and insertion of intraocular lens of left eye (08/04/18) Status post cataract extraction and insertion of intraocular lens of right eye (08/18/18) Social History Smoking/Tobacco Use Status: Former Tobacco Use Smoking risk assessment performed?: Yes Alcohol Intake: never Drug use: Occasionally Substance use type: marijuana Do you feel safe at home: Yes Do you feel safe in your relationship?: Yes
--- NOTE | 2020-12-01 15:31 | PT.INTREAT ---
Date of service: 12/01/20 Time of Service: 10:05 PT Notes Visit Reasons: Left Knee Pain Inpatient Physical Therapy Treatment Note [facility] Date: 12/01/2020 PRECAUTIONS: Activity as tolerated, WBAT L SUBJECTIVE: Pari is pleasant and agreeable to participating in PT. She states that she is having much less pain in her L knee today versus yesterday, and that she is back to my normal. OBJECTIVE: Patient cleared to be independent in her room and with hallway ambulation with FWW, following discussion with nursing PAIN: No c/o pain BED MOBILITY/TRANSFERS Rolling L/R: I Supine-sit: I with HOB flat Sit-supine: I with HOB flat Sit-stand: I Stand-sit: I Bed-chair: I Chair-bed: I GAIT Assistive Device: FWW Weight bearing: WBAT L Assist: S Distance: ~200' Static standing x5 minutes with supervision and FWW support. THEREX: Patient was instructed in a LE strengthening program, completed in a seated position, as per flow sheet. STAIRS: Up/down 6x4 using U rail and step-to pattern, independently. TOILETING: Patient toileted independently ASSESSMENT: Patient tolerated session without complaint. She demonstrates independence with transfers, ambulation with FWW, toileting and stair negotiation at this time. PLAN: Discharge to home later today, per provider. TREATMENT CODE/TIME: 40 minutes; [id number] x3 (10:05)
--- NOTE | 2020-12-05 08:44 | PT.INDS ---
Date of service: 12/05/20 Time of Service: 08:44 PT Notes Visit Reasons: Left Knee Pain Physical Therapy Inpatient Discharge Summary Date: 12/05/2020 Dates of service: 12/01/2019 through 12/02/2019 This is a clinical summary of care provided for the duration of dates listed above. No charge was made in the completion of this documentation. Referring Doctor: Aide Cook MD PT Orders: PT CONSULT: Limited ability Precautions: Fall. Standard. Activity as tolerated. Patient Profile/Admitting Diagnosis: Right back is a 70-year-old female presented to the ED with chief complaint of left knee pain and inability to bend same knee. Patient is admitted for diagnosis of osteoarthritis of the left knee and inability to ambulate. 11/30/2020 PMHX: Medical History Blood glucose elevated Cortical cataract of left eye Depression Enlarged liver History of colon cancer Hyperlipemia Hypertension Nuclear sclerotic cataract of left eye Obesity Posterior subcapsular age-related cataract of left eye Tricuspid regurgitation Surgical History History of hemicolectomy Status post cataract extraction and insertion of intraocular lens of left eye (08/04/18) Status post cataract extraction and insertion of intraocular lens of right eye (08/18/18) Social History/Home Situation: Lives alone in a private home with 4 steps to enter with 1 rail. Does not use any ambulatory device prior to admission. Equipment Owned/DME: None Subjective: NT. See most recent [employer]RB[employer] PLANNING TEACHER notes. Objective: General Observation: NT. See most recent [employer]RB[employer] PLANNING TEACHER notes. Mental Status: NT. See most recent URB[employer] PLANNING TEACHER notes. Pain: NT. See most recent URB[employer] PLANNING TEACHER notes. ROM: Right Upper Extremity: Shoulder Flexion WFL. Shoulder abduction WFL. Elbow flexion WFL. Wrist flexion WFL. Functional opening and closing of hand WFL. Left Upper Extremity: Shoulder Flexion WFL. Shoulder abduction WFL. Elbow flexion WFL. Wrist flexion WFL. Functional opening and closing of hand WFL. Right Lower Extremity: Hip flexion WFL. Hip abduction WFL. Knee flexion to 50 degrees. Ankle dorsiflexion WFL. Ankle plantarflexion WFL. Left Lower Extremity: Hip flexion WFL. Hip abduction WFL. Knee flexion to 90 degrees. Ankle dorsiflexion WFL. Ankle plantarflexion WFL. Strength: Right Upper Extremity: Shoulder flexors 4-/5. Shoulder abductors 4-/5. Elbow flexors 4/5. Elbow extensors 4/5. Electric Furnace Operator strong. Left Upper Extremity: Shoulder flexors 4-/5. Shoulder abductors 4-/5. Elbow flexors 4/5. Elbow extensors 4/5. Electric Furnace Operator strong. Right Lower Extremity: Hip flexors 3+/5. Hip abductors 3+/5. Knee flexors 3-/5. Knee extensors 3+/5. Ankle dorsiflexors 3+/5. Ankle plantarflexors 3+/5. Left Lower Extremity: Hip flexors 3+/5. Hip abductors 3+/5. Knee flexors 3-/5. Knee extensors 3+/5. Ankle dorsiflexors 3+/5. Ankle plantarflexors 3+/5. Bed Mobility/Transfers: Rolling independent Sit to supine independent Sit to stand independent Stand to sit independent Bed to bedside commode independent Bedside commode to bed independent Gait: Instructed patient with level surface ambulation of 200 feet requiring supervision. Felicitas improved. Step height improved. Step length increased. Reported 1/10 on anterior left knee with weight bearing. Balance: Static Sitting: Normal Dynamic Sitting: Normal Static Standing: Fair Dynamic Standing: Fair Assessment: Patient presents with clinical signs and symptoms consistent with current/admitting diagnoses that have resulted to mobility limitations, gait instability, generalized weakness, and overall ADL decline as demonstrated by the following impairment level findings: 1. Decreased strength to B knee major muscle groups 2. Impaired standing balance 3. Impaired activity tolerance 4. Limitation of joint range of motion in B knees 5. Swelling in L knee 6. Obesity Impairments are contributing to the following functional limitations: 1. Difficulty with ambulation without assistive device 2. Increased completion time for mobility ADL performance 3. Increased risk for falls 4. Difficulty with managing steps alone safely Goals: Goals X1 week 1. Supine-Sit independent MET 2. Sit-Supine independent MET 3. Sit-Stand independent MET 4. Stand-Sit independent with front wheeled walker MET 5. Bed-Chair independent with front wheeled walker MET 6. Chair-Bed independent with front wheeled walker MET 7. Independent gait on level surface with use of front wheeled walker for at least 15 feet without report of pain nor dyspnea NOT MET 8. Independent stair negotiation while holding onto 1 rail for at least 5 steps without report of pain nor dyspnea NOT MET 9. Independent with home exercise program NOT MET 10. Good static and dynamic standing balance/tolerance NOT MET DISCHARGE RECOMMENDATIONS: Patient will benefit from home health PT services in order to progress mobility level using least restrictive assistive ambulatory device, assess home safety, identify additional equipment needs, and establish a functional maintenance program that will increase ability of patient to remain at home. Will require use of a FWW to continually off-load B knees duirn ambulation activity until potential surgery to B knees. TREATMENT CODE/TIME: NC Thank you for the opportunity to participate in the care of this patient. Alexandra Moore PT, DPT, CLT [facility] [place], [place]
== END 2020-12-01 14:45 | disposition home or self-care (01) | DRG 554 ==
LOC: ER 06:34 → MS 07:41
PROVIDERS: Internal Medicine; Admitting Provider Family Medicine; Emergency Provider Student in an Organized Health Care Education/Training Program; PCP Nurse Practitioner Family; Visit Provider Family Medicine
DX: M17.12 Unilateral primary osteoarthritis, left knee (principal); Z68.42 Body mass index [BMI] 45.0-49.9, adult; R26.2 Difficulty in walking, not elsewhere classified; M25.462 Effusion, left knee; E66.01 Morbid (severe) obesity due to excess calories; Z20.822 Contact with and (suspected) exposure to COVID-19; F32.9 Major depressive disorder, single episode, unspecified; R16.0 Hepatomegaly, not elsewhere classified; E78.5 Hyperlipidemia, unspecified; I10 Essential (primary) hypertension; I07.1 Rheumatic tricuspid insufficiency; Z85.038 Personal history of other malignant neoplasm of large intestine; Z87.891 Personal history of nicotine dependence; Z98.0 Intestinal bypass and anastomosis status
CPT/HCPCS: 36415; 73562; 80048; 80076; 84145; 85652; 87635; 96372; 97110; 97162; 97530; 99222; 99285; 73700; 81003; 81015; 83735; 84550; 85025; 86140; 99239; 99284; G0378; J1644; J1885; J3490

== ENCOUNTER 2020-12-29 11:07 | Inpatient (IN) | payer MEDICARE, OTHER, SELFPAY ==
[2020-12-29] VITALS (48 sets, daily range): BP systolic 75–162; BP diastolic 41–129; PULSE 57–91; RESP 7–24; TEMP 36.3–36.6; O2SAT 73–99
--- NOTE | 2020-12-29 11:30 | DI.RAD_ITS ---
Exam(s) XR KNEE LT 3V AP,LAT,JJ EXAM: XR KNEE LT 3V AP,LAT,JJ CLINICAL HISTORY: recurent pain. TECHNIQUE: 2D digital imaging was performed. COMPARISON: CR,XR XR KNEE LT 3V AP,LAT,JJ from 11/30/2020 FINDINGS: There is no evidence of fracture but there does appear to be a joint effusion. There are moderate de generative changes in all 3 compartments. There is also approximately 1 millimeters subluxation of t he femoral condyles medially upon the tibial plateau. No osseous lesions. IMPRESSION: DATA REPOSITORY: RADIATION DOSE DELIVERED:
--- NOTE | 2020-12-29 11:36 | W.ED.GENAD ---
Discharge Plan Disposition Patient Disposition: [facility] INPATIENT Condition: Stable Discharge Details Chief Complaint: Orthopedic Clinical Impression: Intractable pain, Osteoarthritis of left knee Primary Care Provider: Mary Barton ED Provider: Ángel Zavaleta Home Meds and New Rx's Prescriptions: No Action meloxicam 15 mg tablet 15 mg PO DAILY Qty: 30 RF: 3 escitalopram oxalate [Lexapro] 5 mg tablet 5 mg PO DAILY RF: 0 One-A-Day Women's 50 Plus 400-20 mcg tablet 1 tab PO DAILY RF: 0 levothyroxine 50 mcg tablet 50 mcg PO DAILY RF: 0 buspirone 10 mg tablet 10 mg PO BID RF: 0 aspirin [Aspirin Low-Strength] 81 MG tablet,chewable 81 mg PO DAILY RF: 0 losartan [Cozaar] 50 MG tablet 50 mg PO DAILY RF: 0 simvastatin 40 MG tablet 40 mg PO DAILY RF: 0 calcium carbonate [Tums] 200 mg calcium (500 mg) Tablet,Chewable 400 - 800 mg PO PRN PRNRF: 0 rizatriptan [Maxalt-[employer]] 5 mg Tablet,Disintegrating 5 mg PO .UP TO TWO DAILY PRNRF: 0 cholecalciferol (vitamin D3) [Vitamin D3] 1,000 unit Capsule 1,000 unit PO DAILY RF: 0 lidocaine 5 % Adhesive Patch,Medicated 1 patch topical Q24H Qty: 30 RF: 0 oxycodone-acetaminophen 5-325 mg Tablet 1 - 2 tab PO TID PRN MDD 30 mg of oxycodone PRN (Reason: pain) Qty: 30 RF: 0 docusate sodium [Colace] 100 mg Capsule 100 mg PO TID PRN PRNQty: 0 RF: 0 Medical Decision Making This is a 70-year-old female who presents from home with recurrence of severe left knee pain. She has had the need for revision of previous surgery of the right knee which needs to be performed prior to being able to undergo left knee operative repair. She was admitted in November for exacerbation of pain. Now with recurrent pain at home over 2 days time without new injury. Patient arrives hypertensive and in pain, her left knee is diffusely tender. Different diagnosis includes new knee injury versus exacerbation of underlying osteoarthritis. IV access established, screening labs obtained and the patient given parenteral analgesia. Laboratories unremarkable. X-ray without evidence of new bony pathology, there is degenerative changes in all 3 compartments. Patient's pain is improved at rest but recurs with attempts at movement. She had success with recent admission but was unable to have home health PT. Now given her persistent pain and inability to ambulate despite having a walker at home, she may benefit from admission. Patient seen in the emergency department by care management. She attempted to ambulate to move to a commode as this provokes recurrent pain. I do feel she requires admission for pain control and PT evaluation. HPI General Mode of arrival: EMS. Date/Time Provider Initiated Documentation: 12/29/20 11:39. Limitations to Documentation: no limitations. Information obtained by: patient and EMS. History of Present Illness 70 year old F presents to the emergency department with the chief complaint of Recurrent severe left knee pain, described as severe, Quality is described as constant, and is localized to the left and lower extremity. Patient started experiencing this day(s) and it has been constant. Rest improves symptom(s), Movement worsens symptoms . Patient notes denies rash, syncope and weakness. Patient did receive the following treatments prior to arrival, other (Oxycodone) Related Data Home Medications Medication Instructions Recorded Confirmed aspirin [Aspirin Low-Strength] 81 mg PO DAILY tab-cap 09/18/12 12/29/20 losartan [Cozaar] 50 mg PO DAILY tab-cap 03/26/16 12/29/20 simvastatin 40 mg PO DAILY tab-cap 03/26/16 12/29/20 calcium carbonate [Tums] 400 - 800 mg PO PRN PRN 07/30/18 12/29/20 cholecalciferol (vitamin D3) 1,000 unit PO DAILY 07/30/18 12/29/20 [Vitamin D3] rizatriptan [Maxalt-[employer]] 5 mg PO .UP TO TWO DAILY PRN 07/30/18 12/29/20 escitalopram oxalate 5 mg tablet 5 mg PO DAILY 02/04/20 12/29/20 levothyroxine 50 mcg tablet 50 mcg PO DAILY 02/04/20 12/29/20 ubuwecbxhauf-uflvgqbv-rzjwiyz-folic 1 tab PO DAILY 02/04/20 12/29/20 acid 400 mcg-vit K1 20 mcg tablet meloxicam 15 mg tablet 15 mg PO DAILY #30 tab 03/18/20 12/29/20 buspirone 10 mg tablet 10 mg PO BID 11/03/20 12/29/20 docusate sodium [Colace] 100 mg PO TID PRN PRN #0 cap 12/01/20 12/29/20 lidocaine 1 patch TOPICAL Q24H #30 ea 12/01/20 12/29/20 oxycodone-acetaminophen 1 - 2 tab PO TID PRN PRN #30 tab 12/01/20 12/29/20 MDD 30 mg of oxycodone Previous Rx's Medication Instructions Recorded meloxicam 15 mg tablet 15 mg PO DAILY #30 tab 03/18/20 docusate sodium [Colace] 100 mg PO TID PRN PRN #0 cap 12/01/20 lidocaine 1 patch TOPICAL Q24H #30 ea 12/01/20 oxycodone-acetaminophen 1 - 2 tab PO TID PRN PRN #30 tab 12/01/20 MDD 30 mg of oxycodone Allergies Allergy/AdvReac Type Severity Reaction Status Date / Time nickel [Nickel] Allergy Mild Unverified 12/29/20 11:15 sulfamethoxazole AdvReac Unknown Unverified 12/29/20 11:15 [From Bactrim] trimethoprim [From Bactrim] AdvReac Unknown Unverified 12/29/20 11:15 aripiprazole AdvReac Verified 12/29/20 11:15 bupropion [From Wellbutrin] AdvReac CONFUSION Verified 12/29/20 11:15 General Stated Complaint: Orthopedic TIFFANY: 4 Review of Systems Narrative: No new fall or injury. No erythema or fever. 8 systems reviewed and otherwise negative. COUNT INCLUDES THE [facility] Medical History Blood glucose elevated Cortical cataract of left eye Depression Enlarged liver History of colon cancer Hyperlipemia Hypertension Nuclear sclerotic cataract of left eye Obesity Posterior subcapsular age-related cataract of left eye Tricuspid regurgitation Surgical History History of hemicolectomy Status post cataract extraction and insertion of intraocular lens of left eye (08/04/18) Status post cataract extraction and insertion of intraocular lens of right eye (08/18/18) Social History Smoking/Tobacco Use Status: Former Tobacco Use Smoking risk assessment performed?: Yes Alcohol Intake: never Drug use: Occasionally Substance use type: marijuana Details: marijuana last night Do you feel safe at home: Yes Do you feel safe in your relationship?: Yes Exam Narrative Exam Narrative: GEN: awake, alert, oriented 3. Pleasant, well groomed, interactive. HEAD: Normocephalic, atraumatic ENT: Mucous membranes moist, oropharynx unremarkable, External ear exam unremarkable EYES: PERRL, EOMI NECK: Full ROM, no JLUIS, no menigismus CHEST/RESP: Nontender, clear to auscultation bilateral, no wheeze/rhonchi/rales CARDIOVASCULAR: RRR, no murmur, rub silvia. 2+ Rad pulse bilateral ABDOMEN: Soft, nontender, no mass. +Bowel sounds EXT: Left knee diffusely tender, able to range through passive motion. Motor is intact. Neuro: Grossly normal neurologic exam, conversant, interactive. Psych: Speech fluent, thoughts congruent, affect normal Course Vital Signs Vital signs: Vital Signs Temperature 36.3 C L 12/29/20 11:11 Pulse 71 12/29/20 11:11 Respiratory Rate 20 12/29/20 11:11 Blood Pressure 151/129 H 12/29/20 11:11 Pulse Oximetry 98 12/29/20 11:11 Temperature 36.3 C L 12/29/20 11:11 Temperature Source Skin 12/29/20 11:11 Pulse 71 12/29/20 11:11 Respiratory Rate 20 12/29/20 11:11 Respiratory Effort Non-Labored 12/29/20 11:18 Blood Pressure 151/129 H 12/29/20 11:11 Blood Pressure Position Sitting 12/29/20 11:11 Pulse Oximetry 98 12/29/20 11:11 Oxygen Delivery Method Room Air 12/29/20 11:11 Oxygen Flow Rate 0 12/29/20 11:11 Pain Level 6 12/29/20 11:11
[2020-12-29] MEDS: Ondansetron 4 MG/2 ML VIAL (11:46)
[2020-12-29] MEDS: Normal Saline Flush 10 ML SYR IVP (11:47)
[2020-12-29] MEDS: Normal Saline 50 ML 200 ML (11:47)
[2020-12-29] MEDS: HYDROmorphone 2 MG/ML VIAL IVP (11:47)
[2020-12-29 11:57] LABS: Abs Immature Grans 0.01 10^3/uL (0.0-0.06); Absolute Basophil Count 0.02 10^3/uL (0.0-0.2); Absolute Eosinophil Count 0.11 10^3/uL (0.0-0.7); Absolute Lymphocyte Count 1.63 10^3/uL (1.2-3.4); Absolute Monocyte Count 0.38 10^3/uL (0.1-0.8); Absolute Neutrophil Count 2.93 10^3/uL (1.2-6.7); Basophils % 0.4; Eosinophils % 2.2; HGB 13.1 g/dL (11.2-15.7); Immature Grans % 0.2; Lymphocytes % 32.1; MCH 29.5 pg (27.0-33.0); MCHC 32.8 % (32.0-36.0); MCV 90.1 fL (80-95); MPV 11.1 fL (8.0-11.0); Monocytes % 7.5; Neutrophils % 57.6; Nucleated RBC 0 %; Platelet Count 141 10^3/uL (130-400); RBC 4.44 10^6/uL (3.93-5.22); RDW 12.6 % (11.7-14.6); RDW-SD 41.8 fL; WBC 5.08 10^3/uL (4.4-10.8)
[2020-12-29 12:12] LABS: Anion Gap 6.4 mmol/L (3-11); BUN 19 mg/dL (7-18); CO2 30.6 mmol/L (21.0-32.0); CREATININE 0.9 mg/dL (0.55-1.02); Calcium 9.1 mg/dL (8.5-10.1); Chloride 105 mmol/L (98-107); Glucose 91 mg/dL (74-106); Potassium 4.5 mmol/L (3.5-5.1); Sodium 142 mmol/L (136-145)
--- NOTE | 2020-12-29 15:06 | DI.RAD_ITS ---
Exam(s) XR CHEST 2V PA LATERAL EXAM: XR CHEST 2V PA LATERAL CLINICAL HISTORY: Transient hypoxia. TECHNIQUE: 2D digital imaging was performed. COMPARISON: CR CHEST 2 VIEWS PA,LAT from 05/14/2015 FINDINGS: Heart size is upper normal. The mediastinum is not widened. Lungs are clear. No infiltrates nor pleural effusions. IMPRESSION: No acute pulmonary findings. DATA REPOSITORY: RADIATION DOSE DELIVERED:
--- NOTE | 2020-12-29 15:53 | NT_ITS ---
Date of service: 12/29/20 Time of Service: 15:53 PT Notes Visit Reasons: TSERING Per ED admitting provider, patient will be admitted to med surg unit for continued obeservation and medical intevention. Will await hopsitalist's referral prior to PT evaluation, per protocol. Thank you for the opportunity to participate in the care of this patient. Alexandra Moore PT, DPT, CLT [facility] [place], [place]
--- NOTE | 2020-12-29 15:54 | INITIAL_ITS ---
- If Service Date Differs Date of service: 12/29/20 Time of Service: 15:54 Care Management Initial Assess REASON FOR HOSPITALIZATION:: Intractable pain, osteoarthritis of left knee, and ambulatory dysfunction. PAST MEDICAL HISTORY/PAST SURGICAL HISTORY:: Medical History: Blood glucose elevated, Cortical cataract of left eye,. Depression, Enlarged liver, History of colon cancer, Hyperlipemia,. Hypertension, Nuclear sclerotic cataract of left eye, Obesity, Posterior subcapsular age-related cataract of left eye, and Tricuspid regurgitation. Surgical History: History of hemicolectomy, Status post cataract extraction and insertion of intraocular lens of left eye (08/04/18), and Status post cataract extraction and insertion of intraocular lens of right eye (08/18/18). PREVIOUS FUNCTIONAL STATUS/SOCIAL/FAMILY SUPPORTS:: Pari lives alone in an apartment in [place]. Her son, Marco, and his live locally and are a source of support for her. 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 Pari drives and is independent at baseline, though the arthrofibrosis of her knees is making walking increasingly more difficult. CURRENT FUNCTIONAL STATUS:: Pari is laying in bed when CM meets with her. She is pleasant and easily engages in conversation. She talks about how her legs will just give out from under her without warning and how these episodes are becoming more frequent and lasting longer. She is scheduled to have a revision of the arthroplasty previously done on her right knee the third week of January. Once she has healed from that surgery, her hope is to have an arthroplasty procedure on her left knee. CM will continue to follow. ADVANCE DIRECTIVES:: None on file; previously provided form for completion. Has patient been provided with info about the portal/API?: Yes Did the patient sign up for the portal?: No CODE STATUS:: Full Code INSURANCE COVERAGE / FINANCIAL ISSUES:: Medicare and [facility]. CURRENT HOME/COMMUNITY SERVICES/EQUIPMENT:: No home/community services. Pari owns a FWW, has a pull string in both her bedroom and bathroom, and has a commode that is available to her but is not currently in her possession. PRIMARY CARE PHYSICIAN:: Mary Barton NP. POTENTIAL DISCHARGE NEEDS:: Follow up appointment with PCP, potential short-term rehab, and discharge plan of care. PATIENT/FAMILY EDUCATION NEEDS:: Review of discharge instructions, limitations, medications, and follow up plan of care, including Ask Me Three' and self management. ANTICIPATED BARRIERS TO DISCHARGE:: Ambulatory dysfunction. TRANSPORTATION:: Dependent on disposition. If Pari returns home, she will be transported by family via private vehicle. PLAN:: Plan is undetermined at this time. Pari may require a rehab stay if she does not regain her ability to ambulate independently. will continue to support Pari and discharge planning needs. Readmission - Within the Past 30 Days Yes or No: Y - Date of First Admission Date of 1st Admission: 11/30/20 - Date of this Admission Date of Admission: 12/29/20 This admission was: Through ED - Speicalist Appointments Have you seen any other specialist since your 1st Admission?: No - I. Interview patient and/or Family Difficulty reaching your doctor or getting an office appt?: No Have you had trouble purchasing/ or taking medication?: No Have you had trouble with getting meals at home?: No Did you feel ready for discharge when you left the last time: Yes Did you call your physician beore you came to the ED?: No How do you think you became sick enough to come back?: I was in pain for several hours and unable to get up. I hoped it would past but when it didn't, I called for help. - If the patient had a VNA ordered Did the patient have a VNA order?: No - Ask the Care Team Members: What do you think caused the patient to be readmitted: Pari has arthrofibrosis of her knees which is interfering with her ability to ambulate and causing significant pain. 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 She requires a revision of the arthroplasty of her right knee and needs an arthroplasty procedure of her left knee.
--- NOTE | 2020-12-29 16:21 | W.PM.HP.N ---
Date of service: 12/29/20 Time of Service: 16:21 Assessment and Plan Assessment and plan (1) Osteoarthritis of left knee: Status: Chronic Assessment and plan: Cont oxycodone 10mg Q6H prn. Meloxicam daily. LIdoderm patch to L knee. PT Qualifiers: Osteoarthritis type: primary Qualified Code(s): M17.12 - Unilateral primary osteoarthritis, left knee (2) Hypertension: Status: Chronic Assessment and plan: Cont Losartan Monitor (3) Hyperlipemia: Status: Acute Assessment and plan: Cont simvastatin. History of Present Illness History of Present Illness Chief Complaint: left knee pain Narrative: This is a 70 yo female with a PMH of osteoarthritis of both knees / R knee replacement, morbid obesity. She presented to the emergency department with the chief complaint of recurrent left knee pain, described as severe, Quality is described as constant, and is localized to the left and lower extremity. She was admitted to [facility] on and discharged on 12/01/2020 for similar complaints. She was not a candidate at that time for a steroid injection in the knee per Dr. Tavares given she had received one in September of 2020. She is in need of a repair of the R knee at [facility] [place] [place] that had a previous replacement. After this, Dr Tavares plans on repairing the left knee. She was unable to ambulate off the bed in the ED d/t pain after receiving dilaudid IV. Admitted for pain control. Review of Systems All systems reviewed & are unremarkable except as noted in HPI and below [facility] Medical History (Updated 12/29/20 @ 16:34 by Mario Meyer MD) Blood glucose elevated Cortical cataract of left eye Depression Enlarged liver History of colon cancer Hyperlipemia Hypertension Nuclear sclerotic cataract of left eye Obesity Posterior subcapsular age-related cataract of left eye Tricuspid regurgitation Surgical History History of hemicolectomy Status post cataract extraction and insertion of intraocular lens of left eye (08/04/18) Status post cataract extraction and insertion of intraocular lens of right eye (08/18/18) Social History Smoking/Tobacco Use Status: Former Tobacco Use Smoking risk assessment performed?: Yes Alcohol Intake: never Drug use: Occasionally Substance use type: marijuana Details: marijuana last night Do you feel safe at home: Yes Do you feel safe in your relationship?: Yes Meds Allergies and Home Medications Allergies Allergy/AdvReac Type Severity Reaction Status Date / Time nickel [Nickel] Allergy Mild Unverified 12/29/20 11:15 sulfamethoxazole AdvReac Unknown Unverified 12/29/20 11:15 [From Bactrim] trimethoprim [From Bactrim] AdvReac Unknown Unverified 12/29/20 11:15 aripiprazole AdvReac Verified 12/29/20 11:15 bupropion [From Wellbutrin] AdvReac CONFUSION Verified 12/29/20 11:15 Home Medications Medication Instructions Recorded Confirmed Type aspirin [Aspirin Low-Strength] 81 mg PO DAILY tab-cap 09/18/12 12/29/20 History losartan [Cozaar] 50 mg PO DAILY tab-cap 03/26/16 12/29/20 History simvastatin 40 mg PO DAILY tab-cap 03/26/16 12/29/20 History calcium carbonate [Tums] 400 - 800 mg PO PRN PRN 07/30/18 12/29/20 History cholecalciferol (vitamin D3) 1,000 unit PO DAILY 07/30/18 12/29/20 History [Vitamin D3] rizatriptan [Maxalt-[employer]] 5 mg PO .UP TO TWO DAILY PRN 07/30/18 12/29/20 History escitalopram oxalate 5 mg tablet 5 mg PO DAILY 02/04/20 12/29/20 History levothyroxine 50 mcg tablet 50 mcg PO DAILY 02/04/20 12/29/20 History zkhpwovltyku-wdzvrlwx-vkggldi-folic 1 tab PO DAILY 02/04/20 12/29/20 History acid 400 mcg-vit K1 20 mcg tablet meloxicam 15 mg tablet 15 mg PO DAILY #30 tab 03/18/20 12/29/20 Rx buspirone 10 mg tablet 10 mg PO BID 11/03/20 12/29/20 History docusate sodium [Colace] 100 mg PO TID PRN PRN #0 cap 12/01/20 12/29/20 Rx lidocaine 1 patch TOPICAL Q24H #30 ea 12/01/20 12/29/20 Rx oxycodone-acetaminophen 1 - 2 tab PO TID PRN PRN #30 tab 12/01/20 12/29/20 Rx MDD 30 mg of oxycodone Exam Const General: cooperative and no acute distress Nutritional Appearance: obese Orientation: alert Eyes Sclera: sclerae normal Pupils: PERRL Resp Effort & Inspection: normal respiratory effort Auscultation: clear to auscultation bilaterally Cardio Rate: regular rate Rhythm: regular rhythm Heart Sounds: S1 normal and S2 normal GI Palpation: soft and nontender Auscultation: normal bowel sounds Skin General skin exam: no rashes or lesions noted Extrem General: no joint enlargement, no pedal edema, no calf tenderness and other (L knee w/o overlying erythema) Psych Appearance: grossly normal Mental Status: mental status grossly normal Mood: congruent mood Affect: normal affect Results Labs Result diagrams: 12/29/20 11:45 12/29/20 11:45 Labs: Laboratory Results - last 24 hr 12/29/20 12/29/20 11:45 11:45 WBC 5.08 RBC 4.44 Hgb 13.1 Hct 40.0 MCV 90.1 MCH 29.5 MCHC 32.8 RDW 12.6 Plt Count 141 MPV 11.1 H Immature Gran % 0.2 Neutrophils % 57.6 Lymphocytes % 32.1 Monocytes % 7.5 Eosinophils % 2.2 Basophils % 0.4 Nucleated RBC % 0 Absolute Neutrophils 2.93 Absolute Lymphocytes 1.63 Absolute Monocytes 0.38 Absolute Eosinophils 0.11 Absolute Basophils 0.02 Sodium 142 Potassium 4.5 Chloride 105 Carbon Dioxide 30.6 Anion Gap 6.4 BUN 19 H Creatinine 0.9 Estimated GFR/1.73 m2 >= 60.00 Glucose 91 Calcium 9.1 Last Vital Signs Temp 36.3 C L 12/29/20 11:11 Pulse 83 12/29/20 15:46 Resp 12 12/29/20 14:46 BP 144/68 H 12/29/20 15:46 Pulse Ox 93 12/29/20 15:50
[2020-12-29 16:22] LABS: Source Nasal/Nares
[2020-12-29 17:18] LABS: COVID-19 PCR Negative (Negative)
[2020-12-29] MEDS: Heparin 5,000 UNITS/ML VIAL 5000 UNITS SC (17:33)
[2020-12-29] MEDS: Acetaminophen 325 MG TAB 650 MG PO (17:34)
[2020-12-29] MEDS: Docusate Sodium 100 MG CAP PO (17:34)
[2020-12-29] MEDS: Lidocaine 5% Patch 1 PATCH TP (18:06)
[2020-12-29] MEDS: Rizatriptan 10 MG TAB PO (20:22)
[2020-12-29] MEDS: busPIRone 5 MG TAB 10 MG PO (20:22)
[2020-12-29] MEDS: oxyCODONE 10 MG TAB PO (20:38)
[2020-12-30] MEDS: Acetaminophen 325 MG TAB 650 MG PO ×4 (00:11→17:58)
[2020-12-30 00:12] VITALS: BP 141/80; PULSE 85; RESP 18; TEMP 37.2; O2SAT 94
[2020-12-30 00:32] LABS: HCT 43.3 % (36.0-46.0); HGB 13.6 g/dL (11.2-15.7); MCHC 31.4 % (32.0-36.0); MCV 92.3 fL (80-95); MPV 11.2 fL (8.0-11.0); Platelet Count 164 10^3/uL (130-400); RBC 4.69 10^6/uL (3.93-5.22); RDW 12.9 % (11.7-14.6); RDW-SD 43.7 fL; WBC 6.38 10^3/uL (4.4-10.8)
[2020-12-30] MEDS: Heparin 5,000 UNITS/ML VIAL 5000 UNITS SC ×3 (02:38→17:59)
[2020-12-30] MEDS: oxyCODONE 10 MG TAB PO ×3 (02:48→20:18)
[2020-12-30] MEDS: Levothyroxine 50 MCG TAB PO (06:00)
[2020-12-30 07:24] VITALS: BP 125/70; PULSE 93; RESP 18; TEMP 36.3; O2SAT 95
[2020-12-30] MEDS: Aspirin 81 MG CHEW PO (08:40)
[2020-12-30] MEDS: busPIRone 5 MG TAB 10 MG PO ×2 (08:40→20:17)
[2020-12-30] MEDS: Escitalopram 10 MG TAB 5 MG PO (08:40)
[2020-12-30] MEDS: Meloxicam 15 MG TAB PO (08:40)
[2020-12-30] MEDS: Cholecalciferol (Vitamin D3) 1,000 UNIT TAB 1000 UNITS PO (08:40)
[2020-12-30] MEDS: Losartan 50 MG TAB PO (08:40)
--- NOTE | 2020-12-30 10:22 | IN_ITS ---
Date of service: 12/30/20 Time of Service: 10:22 PT Notes Visit Reasons: Intractable Pain of Knee Physical Therapy Inpatient Initial Evaluation Date: 12/30/2020 Referring Doctor: Mario Meyer MD PT Orders: PT CONSULT: Limited ability Precautions: Fall. Standard. WBAT on B LE with FWW. Patient Profile/Admitting Diagnosis: Pari is a 70-year-old obese female who presented to the ED with severe recurrent L knee pain. Patient is admitted for diagnosis of osteoarthritis of the left knee, HTN, hyperlipidemia, and difficulty with ambulation. Pari is awaiting revision of a R TKA and potentially a L TKA. A consult is coming up in mid January at [facility] for the potential R TKA revision. Patient was admitted for same issue on 11/30/2020 and was discharged on 12/01/2020 in this hopsital. PMHX: Medical History (Updated 12/29/20 @ 16:34 by Mario Meyer MD) Blood glucose elevated Cortical cataract of left eye Depression Enlarged liver History of colon cancer Hyperlipemia Hypertension Nuclear sclerotic cataract of left eye Obesity Posterior subcapsular age-related cataract of left eye Tricuspid regurgitation Surgical History History of hemicolectomy Status post cataract extraction and insertion of intraocular lens of left eye (08/04/18) Status post cataract extraction and insertion of intraocular lens of right eye (08/18/18) Social History/Home Situation: Lives alone in a private home with 4 steps to enter with 1 rail. Does not use any ambulatory device prior to admission. Unsure of whether she will be able to get assistance from family once she gets discharged from here. Equipment Owned/DME: FWW Subjective: Agreeable to PT consult. Feels that she was over medicated this morning. Appeared to be mildy loopy. Needed redirection and reiteration of instructions. Mildly confused. Objective: General Observation: Obese. No lines seen. Mental Status: Loses train of thought which frustrates her. Seems unable to fully say what she wants to say. Needed redirection. Pain: 9/10 in left knee with weight bearing ROM: Right Upper Extremity: Shoulder Flexion WFL. Shoulder abduction WFL. Elbow flexion WFL. Wrist flexion WFL. Functional opening and closing of hand WFL. Left Upper Extremity: Shoulder Flexion WFL. Shoulder abduction WFL. Elbow flexion WFL. Wrist flexion WFL. Functional opening and closing of hand WFL. Right Lower Extremity: Hip flexion WFL. Hip abduction WFL. Knee flexion to 60 degrees. Knee extension -10 degrees. Ankle dorsiflexion WFL. Ankle plantarflexion WFL. Left Lower Extremity: Hip flexion WFL. Hip abduction WFL. Knee flexion to 95 degrees. Knee extension -20 degrees. Ankle dorsiflexion WFL. Ankle plantarflexion WFL. Strength: Right Upper Extremity: Shoulder flexors 4-/5. Shoulder abductors 4-/5. Elbow flexors 4/5. Elbow extensors 4/5. Airline Station Agent strong. Left Upper Extremity: Shoulder flexors 4-/5. Shoulder abductors 4-/5. Elbow flexors 4/5. Elbow extensors 4/5. Airline Station Agent strong. Right Lower Extremity: Hip flexors 3+/5. Hip abductors 3+/5. Knee flexors 3-/5. Knee extensors 3-/5. Ankle dorsiflexors 3+/5. Ankle plantarflexors 3+/5. Left Lower Extremity: Hip flexors 3+/5. Hip abductors 3+/5. Knee flexors 3-/5. Knee extensors 3-/5. Ankle dorsiflexors 3+/5. Ankle plantarflexors 3+/5. Bed Mobility/Transfers: Sit to supine with SBA with HOB at 30 degrees sist to left with minimal cues for safe/correct technique Sit to stand with contact-guard assist with minimal cues for safe/correct technique Stand to sit with contact-guard assist with minimal cues for safe/correct technique Bed to shower chair with contact-guard assist with minimal cues for safe/correct technique Gait: Instructed patient with level surface ambulation of 20 feet requiring contact guard assist. Antalgia evident. Moderate cues given for correct gait pattern. Felicitas decreased significantly. Step height decreased. Step length creased. Reported 4-5/10 out of 10 pain on anterior left knee with weight bearing. Anxiety level increased due to pain and the possibility of a fall. Balance: Static Sitting: Normal Dynamic Sitting: Normal Static Standing: Fair Dynamic Standing: Fair Special Tests: Mobility Limitations Standardized Measure [facility] 6 clicks Basic Mobility Inpatient Short Form: Raw Score: 20 CMS Score: 36% deficit Informed Consent/Education: Patient was instructed in purpose of PT consult and plan of care. Agreeable to proceed with established PT POC to achieve personal goals. Assessment: Patient is known to this provider from previous admission. Anxiety level increases risk for falls. Unable to thrive alone at home due to mobility ADL impairment resulting from impairment level findings listed below. In her previous admission, she stated that she had had 4 falls in the past year due to the left knee giving way unpredictably. Elaborates that she has had that right knee replaced back in 2004 with revision a couple of years after. Left knee has had 2 steroid injections but she stated that the last 1 has not helped with pain relief at all. She indicated that Dr. Tavares has been following the condition of her left knee and was looking at potential surgery but that he wanted the issue with the R knee resolved at [facility] first before considering L TKA. Holcomb that having the L knee operated on will really help with her ability to thrive at home. Emphasized that the unpredictability of her L knee giving way really shoots up her anxiety level especially after what happened that led to her previous hospital admission. Pari demonstrates significant functional mobility decline due to persistent pain in the left aggravated by weight bearing. She reported good stability and some relief from pain but use of a front wheeled walker during short distance ambulation. Patient presents with clinical signs and symptoms consistent with current/admitting diagnoses that have resulted to mobility limitations, gait instability, generalized weakness, and overall ADL decline as demonstrated by the following impairment level findings: 1. Decreased strength to B knee major muscle groups 2. Impaired standing balance 3. Impaired activity tolerance 4. Limitation of joint range of motion in B knees 5. Swelling in L knee 6. Pain in B knees with L>>R 7. Obesity Impairments are contributing to the following functional limitations: 1. Difficulty with ambulation without assistive device and physical assistance 2. Increased completion time for mobility ADL performance 3. Increased risk for falls 4. Difficulty with managing steps alone safely Patient is assessed as a 09043 moderate complexity based on the following: History: 70-year-old female with past medical history as indicated above Examination: Demonstrable impairment in strength, balance, and mobility level with underlying impairments and functional limitations as exhibited above as well as deficit score of 54% utilizing the [facility] Mobility Inpatient Short Form Presentation: Evolving Decision Makin moderate complexity Goals: Goals X1 week 1. Supine-Sit independent 2. Sit-Supine independent 3. Sit-Stand independent 4. Stand-Sit independent with front wheeled walker 5. Bed-Chair independent with front wheeled walker 6. Chair-Bed independent with front wheeled walker 7. Supervision gait on level surface with use of front wheeled walker for at least 15 feet without report of pain nor dyspnea 8. Supervision stair negotiation while holding onto 1 rail for at least 5 steps without report of pain nor dyspnea 9. Good static and dynamic standing balance/tolerance Plan of Care/Treatment Plan: 1-2x/day, 7 days/week x 1 week. Plan of care has been reviewed with the [facility] providing the service under Physical Therapy direction. Initiate Physical Therapy intervention for pain management as needed, strengthening, bed mobility, transfers, gait, stairs, balance training, and use of assistive device. DISCHARGE RECOMMENDATIONS: Patient will benefit from fpc facility placement for continued skilled physical therapy services in order to progress mobility level, strength, and balance in preparation for a safe discharge to home. TREATMENT CODE/TIME: 71560 x 20 minutes, 99255 x 23 minutes and 10:22 AM. Thank you for the opportunity to participate in the care of this patient. Alexandra Moore PT, DPT, CLT [facility] [place], [place]
[2020-12-30 11:01] VITALS: O2SAT 96
--- NOTE | 2020-12-30 14:29 | NUR.NOTE ---
Nursing Note: patient was crying and anxious. She states that she did not know what to do, she is not able to care for self at home alone as she needs daily assistance with ADLs. Her family unable to assist her
--- NOTE | 2020-12-30 15:47 | CHAPLAIN ---
Pari was resting in bed when I visited. She said she had some difficult decisions to make and asked to talk about that. She told me about her previous colon cancer, and need for more colon surgery, and her need for two knee surgeries, one of which needs to be done at [facility] [place]. Because one knee locks up unexpectedly and prevents Pari from walking, she is not able to ambulate enough to be home alone, she said, so she may be going to a rehab. Her son and daughter live locally and are supportive, but are not vaccinated, so they won't be able to visit. Pari is not vaccinated either. Pari said her nurse, JAMAAL Torre, has been very helpful in assisting her with processing what's going for her. He told her we do what we need to do, Pari said, which is also what her son has told her. Pari is a member of the [facility] [employer] in [place], but has not attended in a while. She appreciated the prayer shawl.
--- NOTE | 2020-12-30 15:52 | PT.INTREAT ---
Date of service: 12/30/20 Time of Service: 15:52 PT Notes Visit Reasons: Intractable Pain of Knee 12/30/2020 Patient was not available x2 in afternoon to participate in PT. Will attempt to resume PT services tomorrow morning.
[2020-12-30] MEDS: Diclofenac 1% Gel 100 GM TUBE TP ×2 (16:53→20:18)
--- NOTE | 2020-12-30 17:30 | PDOC.CMPRO ---
- If Service Date Differs Date of service: 12/30/20 Time of Service: 17:30 Care Management Progress Note S/O: Pari was sitting up in bed and was intermittently tearful when CM met with her. Pari was anticipating being discharged to an acute rehab facility, however her insurance will not provide coverage since her admission is for observation, and her level of care needed does not meet the requirements for an inpatient stay. Information surrounding [facility] was clearly explained to Pari and she verbalized understanding, however she became increasingly emotional after the discussion. She does not feel that she can safely ambulate independently to her bathroom if she is discharged home. She shares that her son has a commode in storage that she can use. She understands that PT tried to meet with her twice today, and will try again in the morning. Pari understands that if she remains at [facility] in observation or swing it would not be covered by her insurance and she would need to pay out of pocket, PT evaluation recommends SNF placement even though there is no payer source. A: 70-year-old female admitted to [facility] on 12/29/20 for intractable pain of her left knee. P: PT evaluation recommends SNF placement however there is no payer source since patient does not meet criteria for inpatient or acute services. Continue to observe patient overnight, PT will re-eval in the morning.
[2020-12-30] MEDS: Rizatriptan 10 MG TAB PO (20:10)
[2020-12-30] MEDS: Simvastatin 20 MG TAB 40 MG PO (20:17)
--- NOTE | 2020-12-30 21:13 | W.PM.PROGNOT ---
Date of Service Date of service: 12/30/20 Time of Service: 21:14 Assessment and Plan Assessment and plan (1) Osteoarthritis of left knee: Status: Chronic Assessment and plan: Cont oxycodone 10mg. Change interval to Q4H prn Meloxicam daily. D/C lidoderm patch and begin voltaren gel QID to left knee. PT Qualifiers: Osteoarthritis type: primary Qualified Code(s): M17.12 - Unilateral primary osteoarthritis, left knee (2) Hypertension: Status: Chronic Assessment and plan: Cont Losartan Monitor (3) Hyperlipemia: Status: Acute Assessment and plan: Cont simvastatin. Subjective Subjective Patient reports: no new complaints, still having pain, vomiting and afebrile; denies nausea and shortness of breath Interval history since last seen: Pt tearful when discussing her situation and the likely need to go to a facility for rehab. Exam Const General: cooperative and no acute distress Nutritional Appearance: obese Orientation: alert Eyes Sclera: sclerae normal Pupils: PERRL Resp Effort & Inspection: normal respiratory effort Auscultation: clear to auscultation bilaterally Cardio Rate: regular rate Rhythm: regular rhythm Heart Sounds: S1 normal and S2 normal GI Palpation: soft and nontender Auscultation: normal bowel sounds Skin General skin exam: no rashes or lesions noted Extrem General: no joint enlargement, no pedal edema, no calf tenderness and other (L knee w/o overlying erythema) Psych Appearance: grossly normal Mental Status: mental status grossly normal Mood: congruent mood Affect: normal affect Objective Last Vital Signs Temp 36.3 C L 12/30/20 07:24 Pulse 93 H 12/30/20 07:24 Resp 18 12/30/20 07:24 BP 125/70 12/30/20 07:24 Pulse Ox 96 12/30/20 11:01 Laboratory Results - last 24 hr 12/30/20 00:15 WBC 6.38 RBC 4.69 Hgb 13.6 Hct 43.3 MCV 92.3 MCH 29.0 MCHC 31.4 L RDW 12.9 Plt Count 164 MPV 11.2 H
[2020-12-31] MEDS: Acetaminophen 325 MG TAB 650 MG PO ×5 (00:01→23:22)
[2020-12-31] MEDS: oxyCODONE 10 MG TAB PO ×2 (00:02→06:05)
[2020-12-31 01:07] VITALS: BP 115/73; PULSE 74; RESP 20; TEMP 36.4; O2SAT 95
[2020-12-31] MEDS: Heparin 5,000 UNITS/ML VIAL 5000 UNITS SC ×3 (02:40→17:45)
[2020-12-31] MEDS: Levothyroxine 50 MCG TAB PO (06:05)
[2020-12-31 07:01] VITALS: BP 146/88; PULSE 71; RESP 18; TEMP 36.5; O2SAT 98
[2020-12-31] MEDS: Aspirin 81 MG CHEW PO (08:24)
[2020-12-31] MEDS: Diclofenac 1% Gel 100 GM TUBE TP ×4 (08:24→20:13)
[2020-12-31] MEDS: Cholecalciferol (Vitamin D3) 1,000 UNIT TAB 1000 UNITS PO (08:24)
[2020-12-31] MEDS: busPIRone 5 MG TAB 10 MG PO ×2 (08:24→20:14)
[2020-12-31] MEDS: Meloxicam 15 MG TAB PO (08:25)
[2020-12-31] MEDS: Docusate Sodium 100 MG CAP PO ×2 (08:25→23:37)
[2020-12-31] MEDS: Escitalopram 10 MG TAB 5 MG PO (08:25)
[2020-12-31] MEDS: Losartan 50 MG TAB PO (08:25)
[2020-12-31 08:29] VITALS: O2SAT 98
[2020-12-31] MEDS: Gabapentin 100 MG CAP PO ×3 (10:33→20:14)
--- NOTE | 2020-12-31 13:31 | PT.INTREAT ---
Date of service: 12/31/20 Time of Service: 09:55 PT Notes Visit Reasons: Intractable Pain of Knee Inpatient Physical Therapy Treatment Note [facility] Date: 12/31/2020 PRECAUTIONS: Activities as tolerted SUBJECTIVE: Stated she is nervous about going home. Is not sure who can help her with things like cleaning herself if she has an accident with a bowel movement. Stated her son can help her with getting up her front stairs, if she goes home. Frustrated with her insurance limitations. OBJECTIVE: PAIN: Continuing to have significant pain in the left hip/ knee, 4-5 out of 10 on 0-10 pain scale. Bottom of foot is really sensitive. BED MOBILITY/TRANSFERS Rolling L/R: I Supine-sit: SBA with HOB at 0 Sit-supine: SBA with HOB at 0 Sit-stand: SBA Stand-sit: SBA GAIT Assistive Device: FWW Weight bearing: FWB Assist: CGA to SBA Distance: 20ft THEREX: Able to perform ankle pumps x 20 reps, LAQs x 10 reps, seated hip flexion x 15 reps, seated hip abd/add x 15 reps, shoulder horizontal abd/add x 10 reps, elbow flexion/ extension x 10 reps, shoulder flexion from 0 to 70 degrees x 10 reps with bilateral LE/UEs. Discussed continuing these exercises at home independently, as well as ambulation with walker. STAIRS: Declined ambulation on stairs, but we did discuss step to gait pattern and use of stronger leg going up first and weaker leg coming down first. Patient has had to do this in the past, so was familiar with stair gait pattern. Does have a handrail and son to help her today. ASSESSMENT: Tolerated ther exercises and ambulation fair. Did appear to struggle with bed mobility, getting in and out of bed, with HOB flat. But was able to do independently. PLAN: Would benefit from continued PT services either with HH or outpatient services, for improved mobility and strengthening. TREATMENT CODE/TIME: 31782, 19647, 30 minutes, session began at 9:55 am
[2020-12-31 15:40] VITALS: BP 126/78; PULSE 64; RESP 16; TEMP 36.9; O2SAT 90
--- NOTE | 2020-12-31 15:55 | W.PM.PROGNOT ---
Date of Service Date of service: 12/31/20 Time of Service: 15:56 Assessment and Plan Assessment and plan (1) Intractable pain: Status: Acute Assessment and plan: Due to painful OA L knee and painful total knee replacement on R. Some improvement, but still unable to ambulate independently. I added gabapentin to regimen. Will also introduce lidocaine patches. Continue scheduled tylenol and prn oxycodone. Continue PT. (2) Ambulatory dysfunction: Status: Acute Assessment and plan: As above Continue PT. (3) Osteoarthritis of left knee: Status: Chronic Assessment and plan: The patient will eventually require a TKR, but it appears that revision of R knee is scheduled to happened first - the patient states at the end of January. Qualifiers: Osteoarthritis type: primary Qualified Code(s): M17.12 - Unilateral primary osteoarthritis, left knee (4) Painful total knee replacement, right: Status: Acute Assessment and plan: As above (5) DVT prophylaxis: Status: Acute Assessment and plan: SC heparin (6) Discharge planning issues: Status: Acute Assessment and plan: Full code May require acute vs subacute rehab Subjective Subjective Interval history since last seen: C/o bilateral knee pain, which is a little bit better, but still requiring at least 1 assist, per nurse. No dizziness, chest pain, shortness of breath, nausea. Concerned about insurance coverage, but knows she can't go home while requiring so much assistance. Exam Narrative Exam Narrative: General: Pleasant middle-aged female who is tearful about her situation, A&Ox3 HEENT: EOMI, MMM Heart: RRR, no m/r/g Lungs: CTAB Abdomen: soft, nontender, nondistended Extremities: lymphedema BLE's, B knees without erythema or obvious effusion Objective Last Vital Signs Temp 36.9 C 12/31/20 15:40 Pulse 64 12/31/20 15:40 Resp 16 12/31/20 15:40 BP 126/78 12/31/20 15:40 Pulse Ox 90 L 12/31/20 15:40
[2020-12-31] MEDS: Lidocaine 5% Patch 2 PATCH TP (17:45)
[2020-12-31] MEDS: Simvastatin 20 MG TAB 40 MG PO (20:14)
[2020-12-31 23:37] VITALS: BP 142/69; PULSE 71; RESP 18; TEMP 36.4; O2SAT 98
[2020-12-31] MEDS: Milk of Magnesia 30 ML CUP PO (23:37)
[2021-01-01] MEDS: Heparin 5,000 UNITS/ML VIAL 5000 UNITS SC ×3 (02:55→17:44)
[2021-01-01] MEDS: Levothyroxine 50 MCG TAB PO (05:19)
[2021-01-01] MEDS: Acetaminophen 325 MG TAB 650 MG PO ×3 (05:19→17:44)
[2021-01-01] MEDS: Patch Removal 1 EACH TP (05:21)
[2021-01-01 07:00] VITALS: BP 103/69; PULSE 65; RESP 17; TEMP 36.4; O2SAT 94
[2021-01-01] MEDS: Meloxicam 15 MG TAB PO (08:01)
[2021-01-01] MEDS: Cholecalciferol (Vitamin D3) 1,000 UNIT TAB 1000 UNITS PO (08:01)
[2021-01-01] MEDS: Aspirin 81 MG CHEW PO (08:01)
[2021-01-01] MEDS: Gabapentin 100 MG CAP PO (08:01)
[2021-01-01] MEDS: Diclofenac 1% Gel 100 GM TUBE TP ×4 (08:01→20:11)
[2021-01-01] MEDS: Losartan 50 MG TAB PO (08:01)
[2021-01-01] MEDS: Escitalopram 10 MG TAB 5 MG PO (08:02)
[2021-01-01] MEDS: busPIRone 5 MG TAB 10 MG PO ×2 (08:02→20:11)
[2021-01-01 08:04] LABS: HCT 41.1 % (36.0-46.0); HGB 13.2 g/dL (11.2-15.7); MCH 29.3 pg (27.0-33.0); MCHC 32.1 % (32.0-36.0); MCV 91.3 fL (80-95); MPV 11.2 fL (8.0-11.0); Platelet Count 159 10^3/uL (130-400); RDW 12.8 % (11.7-14.6); RDW-SD 42.5 fL; WBC 5.32 10^3/uL (4.4-10.8)
--- NOTE | 2021-01-01 10:58 | PT.INTREAT ---
Date of service: 01/01/21 Time of Service: 08:40 PT Notes Visit Reasons: Intractable Pain of Knee Inpatient Physical Therapy Treatment Note [facility] Date: 01/01/2021 PRECAUTIONS: Activity as tolerated and fall SUBJECTIVE: Still not feeling great, but better than yesterday. OBJECTIVE: PAIN: No complaints of any specific pain any where. BED MOBILITY/TRANSFERS Up in chair when I arrived to room. Sit-stand: SBA Stand-sit: SBA GAIT Assistive Device: FWW Weight bearing: FWB Assist: CGA and IV pole Distance: 60ft THEREX: Performed seated ankle pumps, glut sets, LAQs, hip flexion, hip abd/add, UE shoulder horizontal abd, right bicep curls and tricep exercise for 10 reps each. ASSESSMENT: Tolerated ther exercises and ambulation very well today. PLAN: Continue with current POC with focus on improved functional mobility. TREATMENT CODE/TIME: 89800 (10 minutes) 8:40 to 8:50 am and 74373 (15 minutes) 10:30 to 10:45 am
--- NOTE | 2021-01-01 11:16 | PT.INTREAT ---
Date of service: 01/01/21 Time of Service: 09:10 PT Notes Visit Reasons: Intractable Pain of Knee Inpatient Physical Therapy Treatment Note [facility] Date: 01/01/2021 PRECAUTIONS:Activity as tolerated, fall SUBJECTIVE: Stated she awoke this morning feeling better, but once up pain in foot/ left LE hip-knee was still there just not as bad. OBJECTIVE: PAIN: Pain varies depending on positioning. Not too bad in chair, but can get to a 5-6 when placing weight on left LE. BED MOBILITY/TRANSFERS Rolling L/R: I Supine-sit: I Sit-supine: I Sit-stand: SBA Stand-sit: SBA GAIT Assistive Device: FWW Weight bearing: FWB Assist: SBA Distance: 120ft THEREX: Performed seated ankle pumps, LAQs, seated hip flexion, seated hip abd/add x 10 reps x 2 sets, as well as 2# resisted right UE / 1# resisted left UE horizontal shoulder abd/add, shoulder flexion 0-90 degrees, bicep curls and tricep extension for 10 reps each. STAIRS: Up / down 4 6 inch steps with 2 handrailings and CGA of one, utilizing step to gait pattern. Utilizing left LE as her stronger extremity. ASSESSMENT: Function and attitude were much improved today. Appeared more confident and comfortable. PLAN: Continue to encourage strengthening of bilateral LEs and ambulation as able to tolerate. TREATMENT CODE/TIME: 59057 and 63674, (40 minutes) 9:10 to 9:50 am
[2021-01-01] MEDS: Gabapentin 100 MG CAP 200 MG PO ×2 (14:18→20:12)
[2021-01-01 15:25] VITALS: BP 112/73; PULSE 71; RESP 17; TEMP 36; O2SAT 94
--- NOTE | 2021-01-01 17:24 | W.PM.PROGNOT ---
Date of Service Date of service: 01/01/21 Time of Service: 16:20 Assessment and Plan Assessment and plan (1) Intractable pain: Status: Acute Assessment and plan: Due to painful OA L knee and painful total knee replacement on R. Better. Titrate gabapentin up. Continue lidocaine patches. Continue scheduled tylenol and prn oxycodone. Continue PT. ?need for rehab (2) Ambulatory dysfunction: Status: Acute Assessment and plan: As above Continue PT. (3) Osteoarthritis of left knee: Status: Chronic Assessment and plan: The patient will eventually require a TKR, but it appears that revision of R knee is scheduled to happened first - the patient states at the end of January. Qualifiers: Osteoarthritis type: primary Qualified Code(s): M17.12 - Unilateral primary osteoarthritis, left knee (4) Painful total knee replacement, right: Status: Acute Assessment and plan: As above (5) DVT prophylaxis: Status: Acute Assessment and plan: SC heparin (6) Discharge planning issues: Status: Acute Assessment and plan: Full code Likely discharge home vs rehab tomorrow, pending PT recommendations Subjective Subjective Interval history since last seen: Pain is much better controlled. States gabapentin is really working. This morning it was not, but it is doing better this afternoon. Worked with PT and was able to do the stairs. She states she needs to have a different bed at the house as well as a commode and is not prepared for discharge home today, but we discussed that she would likely be discharged home tomorrow, unless physical therapy still recommended rehab at that time. Exam Narrative Exam Narrative: General: Pleasant middle-aged female, A&Ox3, in much better spirits HEENT: EOMI, MMM Heart: RRR, no m/r/g Lungs: CTAB Abdomen: soft, nontender, nondistended Extremities: lymphedema BLE's, B knees without erythema or obvious effusion Objective Last Vital Signs Temp 36.0 C L 01/01/21 15:25 Pulse 71 01/01/21 15:25 Resp 17 01/01/21 15:25 BP 112/73 01/01/21 15:25 Pulse Ox 94 01/01/21 15:25 Laboratory Results - last 24 hr 01/01/21 07:48 WBC 5.32 RBC 4.50 Hgb 13.2 Hct 41.1 MCV 91.3 MCH 29.3 MCHC 32.1 RDW 12.8 Plt Count 159 MPV 11.2 H
[2021-01-01] MEDS: Lidocaine 5% Patch 2 PATCH TP (17:45)
[2021-01-01] MEDS: Simvastatin 20 MG TAB 40 MG PO (20:11)
[2021-01-02 00:34] VITALS: BP 158/87; PULSE 87; RESP 19; TEMP 36.2; O2SAT 96
[2021-01-02] MEDS: Heparin 5,000 UNITS/ML VIAL 5000 UNITS SC (01:49)
[2021-01-02] MEDS: Acetaminophen 325 MG TAB 650 MG PO ×3 (01:49→11:43)
[2021-01-02] MEDS: Levothyroxine 50 MCG TAB PO (05:56)
[2021-01-02] MEDS: Patch Removal 1 EACH TP (05:57)
--- NOTE | 2021-01-02 07:21 | PDOC.CMPRO ---
- If Service Date Differs Date of service: 01/02/21 Time of Service: 07:21 Care Management Progress Note S/O: Pari was sitting up in her chair when CM met with her. She is feeling much better feels good about being discharged home today. She started on Gabapentin over the weekend and feels that her quality of life is so much better. Pain is a 0 on a 0-10 scale, she is ambulating independently. She feels good about returning home and her son Hudson is going to modify her bed so she can get in and out of it. The commode is still in somewhere in her sons storage, but patient agrees that it is not needed at this time. A: 70-year-old female admitted to [facility] on 12/29/20 for intractable pain of her left knee. P: Pari will be discharged home today via private vehicle with her daughter in law. She will follow up with her PCP within 2 weeks, continue activity as tolerated. Pari asked about getting medical equipment in anticipation of her upcoming knee surgeries. CM advised her she should go through her PCP for an order when the time comes. She may find lower prices online if paying out of pocket. Pari elects not to participate in outpatient PT because her insurance only covers a set number of visits and she doesn't personally feel she needs PT at this time.
[2021-01-02] MEDS: Aspirin 81 MG CHEW PO (08:19)
[2021-01-02] MEDS: Diclofenac 1% Gel 100 GM TUBE TP (08:19)
[2021-01-02] MEDS: busPIRone 5 MG TAB 10 MG PO (08:19)
[2021-01-02] MEDS: Escitalopram 10 MG TAB 5 MG PO (08:19)
[2021-01-02] MEDS: Losartan 50 MG TAB PO (08:20)
[2021-01-02] MEDS: Meloxicam 15 MG TAB PO (08:20)
[2021-01-02] MEDS: Gabapentin 100 MG CAP 200 MG PO ×2 (08:20→14:39)
[2021-01-02] MEDS: Cholecalciferol (Vitamin D3) 1,000 UNIT TAB 1000 UNITS PO (08:20)
[2021-01-02 09:43] VITALS: BP 144/84; PULSE 71; RESP 18; TEMP 36.8; O2SAT 97
--- NOTE | 2021-01-02 12:43 | PT.INTREAT ---
Date of service: 01/02/21 Time of Service: 10:45 PT Notes Visit Reasons: Intractable Pain of Knee Inpatient Physical Therapy Treatment Note [facility] Date: 01/02/2021 PRECAUTIONS: WBAT L SUBJECTIVE: Pari is pleasant and stating that her pain is under control, and she feels she is able to function at her baseline at this time. She is looking forward to going home today. OBJECTIVE: PAIN: No c/o pain BED MOBILITY/TRANSFERS Sit-stand: I Stand-sit: I GAIT Assistive Device: FWW Weight bearing: Full Assist: I Distance: 300' ASSESSMENT: Patient tolerated session well without complaint. She was able to tolerate a progression in gait distance with FWW support, independently. PLAN: Patient to discharge to home later today, per provider. TREATMENT CODE/TIME: 10 minutes; 53316 (10:45)
--- NOTE | 2021-01-02 13:53 | DSE_ITS ---
Date of service: 01/02/21 Time of Service: 13:53 DS: Diagnosis Discharge Diagnosis (1) Intractable pain: Status: Acute (2) Ambulatory dysfunction: Status: Acute (3) Osteoarthritis of left knee: Status: Chronic (4) Painful total knee replacement, right: Status: Acute Discharge Plan Disposition Patient Disposition: HOME Condition: Stable Discharge Details Reason For Visit: Intractable Pain of Knee Admit Date/Time: 12/31/20 09:05 Admit Provider: Mario Meyer Attending Provider: Mario Meyer Primary Care Provider: Mary Barton [facility] Course Hospital Course: Pari Lackey is a very pleasant 70 year old female with a past medical history significant for osteoarthritis of bilateral knees, s/p RTKA, which is scheduled for revision next month at [facility] [place], obesity, depression, HTN, hyperlipidemia, who presented to the ED on 12/29/20 with intractable left knee pain. She was recently admitted to this facility from 11/30-12/01 for similar reports. She was not a candidate for injection per Dr. Tavares at that time since she received one in September of 2020. She was unable to ambulate in the ED after receiving IV dilaudid and was admitted to the med/surg floor for further evaluation and treatment. She was started on scheduled APAP, Gabapentin 200 mg TID and diclofenac gel with good effect. She was able to work with PT. She is no longer requiring oxycodone. On the day of discharge, PT reports that she is independent and able to function at baseline. She is using a front wheeled walker. She denies pain at rest and with activity. She is eating and drinking and tolerating her diet. PT recommends outpatient PT, however, Pari states she only has a certain number of PT sessions remaining for the year and she wants to be sure that she has enough for after her RTK revision. PT continues to recommend PT. The plan is for her to have her RTK revision at [facility] next month, then Dr. Tavares will replace her L knee. If she develops more pain, the gabapentin can be increased. She is advised to follow up with her PCP. Home Meds and New Rx's Prescriptions: New Acetaminophen [Tylenol] 650 mg PO Q6H Qty: 1 RF: 1 diclofenac sodium 1 % Gel 2 g topical QID Qty: 100 RF: 0 gabapentin 100 mg Capsule 200 mg PO TID Qty: 90 RF: 0 Continued meloxicam 15 mg tablet 15 mg PO DAILY Qty: 30 RF: 3 escitalopram oxalate [Lexapro] 5 mg tablet 5 mg PO DAILY RF: 0 One-A-Day Women's 50 Plus 400-20 mcg tablet 1 tab PO DAILY RF: 0 levothyroxine 50 mcg tablet 50 mcg PO DAILY RF: 0 buspirone 10 mg tablet 10 mg PO BID RF: 0 aspirin [Aspirin Low-Strength] 81 MG tablet,chewable 81 mg PO DAILY RF: 0 losartan [Cozaar] 50 MG tablet 50 mg PO DAILY RF: 0 simvastatin 40 MG tablet 40 mg PO DAILY RF: 0 calcium carbonate [Tums] 200 mg calcium (500 mg) Tablet,Chewable 400 - 800 mg PO PRN PRNRF: 0 rizatriptan [Maxalt-RIP/MOULD OPERATOR] 5 mg Tablet,Disintegrating 5 mg PO .UP TO TWO DAILY PRNRF: 0 cholecalciferol (vitamin D3) [Vitamin D3] 1,000 unit Capsule 1,000 unit PO DAILY RF: 0 lidocaine 5 % Adhesive Patch,Medicated 1 patch topical Q24H Qty: 30 RF: 0 docusate sodium [Colace] 100 mg Capsule 100 mg PO TID PRN PRNQty: 0 RF: 0 Discontinued oxycodone-acetaminophen 5-325 mg Tablet 1 - 2 tab PO TID PRN MDD 30 mg of oxycodone PRN (Reason: pain) Qty: 30 RF: 0 Discharge Instructions Instructions: Revision Total Joint Arthroplasty (DC) Additional Instructions: Follow up with your PCP as scheduled. Continue to take Acetaminophen scheduled. Take Gabapentin three times per day scheduled. The gabapentin can be increased by your PCP if your pain returns. Apply diclofenac gel four times per day scheduled. Referrals: Mary Barton [Primary Care Provider] - (follow up in 2 weeks) Activity:: Activity as Tolerated Equipment/Supplies:: No Equipment Needed Diet:: As Tolerated Discharge Orders Discharge Orders: Discharge Order (Routine); Ordered 01/02/21 Ordered By: Tamika Steiner DS: Summary Time Spent with Patient providing and/or coordinating discharge services: Greater than 30 minutes Status at Discharge Functional status at discharge: uses cane/walker Overall status at discharge: patient is back to baseline Mental Status: mental status grossly normal Speech and Movement: speech and movement normal Mood: congruent mood Affect: normal affect Exam Narrative Exam Narrative: General: very pleasant female, sitting up in recliner with BLEs elevated, alert and oriented, overweight, in NAD. HEENT: normocephalic, atraumatic, pupils equal and round, makes eye contact, mucous membranes moist. Neck: supple. Respiratory: respirations appear even and unlabored. GI: soft, nontender. Extremities: lymphedema to BLEs, bilateral knees without obvious effusion or erythema. Psych Mental Status: mental status grossly normal Speech and Movement: speech and movement normal Mood: congruent mood Affect: normal affect DS: Data Vitals/I&O Vitals and I&O: Vital Signs Temperature 36.8 C 01/02/21 09:43 Temperature Source Temporal Artery Scan 01/02/21 09:43 Pulse 71 01/02/21 09:43 Pulse Rhythm Regular 01/02/21 08:20 Pulse 80 12/29/20 14:46 Respiratory Rate 18 01/02/21 09:43 Respiratory Effort Non-Labored 01/02/21 08:20 Respiratory Depth Normal 01/02/21 08:20 Respiratory Pattern Normal 01/02/21 08:20 Blood Pressure 144/84 H 01/02/21 09:43 Blood Pressure Mean 96 12/29/20 17:00 Blood Pressure Position Sitting 12/29/20 11:11 Pulse Oximetry 97 01/02/21 09:43 Oxygen Delivery Method Room Air 01/02/21 09:43 Oxygen Flow Rate 0 01/02/21 09:43 Pain Level 0 01/02/21 11:43 Comment 12/29/20 17:00 Intake & Output 01/01/21 01/02/21 01/02/21 23:59 11:59 23:59 Intake Total 920 / 1530 240 / 240 Balance 920 / 1530 240 / 240 Intake: Oral 920 / 1520 240 / 240 Other: Urine Appearance Clear Clear Data Completed and Pending Completed studies during hospitalization [Text1]: 12/29/20: L knee x-ray: FINDINGS: There is no evidence of fracture but there does appear to be a joint effusion. There are moderate degenerative changes in all 3 compartments. There is also approximately 1 millimeters subluxation of the femoral condyles medially upon the tibial plateau. No osseous lesions. CXR: FINDINGS: Heart size is upper normal. The mediastinum is not widened. Lungs are clear. No infiltrates nor pleural effusions. [facility] Medical History Blood glucose elevated Cortical cataract of left eye Depression Enlarged liver History of colon cancer Hyperlipemia Hypertension Nuclear sclerotic cataract of left eye Obesity Posterior subcapsular age-related cataract of left eye Tricuspid regurgitation Surgical History History of hemicolectomy Status post cataract extraction and insertion of intraocular lens of left eye (08/04/18) Status post cataract extraction and insertion of intraocular lens of right eye (08/18/18) Social History Smoking/Tobacco Use Status: Former Tobacco Use Smoking risk assessment performed?: Yes Alcohol Intake: never Drug use: Occasionally Substance use type: marijuana Details: marijuana last night Do you feel safe at home: Yes Do you feel safe in your relationship?: Yes
--- NOTE | 2021-01-02 14:46 | CHAPLAIN ---
Pari was quick to tell me this morning that she was given a miracle drug that has helped her to be able to put weight on her left and walk with a walker. Since she was given the does on Saturday, she said she could feel that her foot and leg were feeling different. She was also looking forward to taking a shower by herself today. Pari is connected to the the [facility] in [place] but has not attended since COVID precautions were in place as she's not vaccinated.
--- NOTE | 2021-01-02 15:34 | CMDISCH_ITS ---
- If Service Date Differs Date of service: 01/02/21 Time of Service: 15:34 LACE Index Scoring Tool - Questions: Length of Stay (in days): 2 Acuity (Admit via E.D.?): Yes E.D. Visits: 2 - Answers: Total Score: 7 Risk of Readmission: Low Risk Care Management Discharge Reason for Hospitalization: Intractable pain, osteoarthritis of left knee, and ambulatory dysfunction. Discharge Plan: Pari is independent and able to function at baseline. She will be discharged to home with no new services. Pari declines outpatient PT due to limitations on the number of PT visits she can get per calendar year using her insurance and she doesn't feel PT will be helpful. Her daughter in-law will provide transportation. It is recommended that she follow up with her PCP in 2 weeks and move forward with knee surgery at [facility] next month. Patient/Family Education Needs: Review discharge instructions and plan of care which includes following up with her PCP and [facility] next month for a RTK surgery, ask me three.
--- NOTE | 2021-01-03 09:06 | PT.INDS ---
Date of service: 01/03/21 Time of Service: 09:06 PT Notes Visit Reasons: Intractable Pain of Knee Physical Therapy Inpatient Discharge Summary Date: 01/03/2021 Date of Service: 12/30/2020 through 01/02/2021 This is a clinical summary of care provided for the duration of dates listed above. No charge was made in the completion of this documentation. Referring Doctor: Mario Meyer MD PT Orders: PT CONSULT: Limited ability Precautions: Fall. Standard. WBAT on B LE with FWW. Patient Profile/Admitting Diagnosis: Pari is a 70-year-old obese female who presented to the ED with severe recurrent L knee pain. Patient is admitted for diagnosis of osteoarthritis of the left knee, HTN, hyperlipidemia, and difficulty with ambulation. Pari is awaiting revision of a R TKA and potentially a L TKA. A consult is coming up in mid January at [facility] for the potential R TKA revision. Patient was admitted for same issue on 11/30/2020 and was discharged on 12/01/2020 in this hopsital. PMHX: Medical History (Updated 12/29/20 @ 16:34 by Mario Meyer MD) Blood glucose elevated Cortical cataract of left eye Depression Enlarged liver History of colon cancer Hyperlipemia Hypertension Nuclear sclerotic cataract of left eye Obesity Posterior subcapsular age-related cataract of left eye she basically told me that she will Tricuspid regurgitation Surgical History History of hemicolectomy Status post cataract extraction and insertion of intraocular lens of left eye (08/04/18) Status post cataract extraction and insertion of intraocular lens of right eye (08/18/18) Social History/Home Situation: Lives alone in a private home with 4 steps to enter with 1 rail. Does not use any ambulatory device prior to admission. Unsure of whether she will be able to get assistance from family once she gets discharged from here. Equipment Owned/DME: FWW Subjective: NT. See most recent TRESTLE MECHANIC notes. Mother Objective: General Observation: NT. See most recent TRESTLE MECHANIC notes. Mental Status: NT. See most recent TRESTLE MECHANIC notes. Pain: NT. See most recent TRESTLE MECHANIC notes. ROM: Right Upper Extremity: Shoulder Flexion WFL. Shoulder abduction WFL. Elbow flexion WFL. Wrist flexion WFL. Functional opening and closing of hand WFL. Left Upper Extremity: Shoulder Flexion WFL. Shoulder abduction WFL. Elbow flexion WFL. Wrist flexion WFL. Functional opening and closing of hand WFL. Right Lower Extremity: Hip flexion WFL. Hip abduction WFL. Knee flexion to 60 degrees. Knee extension -10 degrees. Ankle dorsiflexion WFL. Ankle plantarflexion WFL. Left Lower Extremity: Hip flexion WFL. Hip abduction WFL. Knee flexion to 95 degrees. Knee extension -20 degrees. Ankle dorsiflexion WFL. Ankle plantarflexion WFL. Strength: Right Upper Extremity: Shoulder flexors 4-/5. Shoulder abductors 4-/5. Elbow flexors 4/5. Elbow extensors 4/5. Brancher strong. Left Upper Extremity: Shoulder flexors 4-/5. Shoulder abductors 4-/5. Elbow flexors 4/5. Elbow extensors 4/5. Brancher strong. Right Lower Extremity: Hip flexors 3+/5. Hip abductors 3+/5. Knee flexors 3-/5. Knee extensors 3-/5. Ankle dorsiflexors 3+/5. Ankle plantarflexors 3+/5. Left Lower Extremity: Hip flexors 3+/5. Hip abductors 3+/5. Knee flexors 3-/5. Knee extensors 3-/5. Ankle dorsiflexors 3+/5. Ankle plantarflexors 3+/5. Bed Mobility/Transfers: Sit to supine independent Sit to stand independent Stand to sit independent Bed to shower chair independent Gait: Instructed patient with level surface ambulation of 300 feet independently. No antalgia seen. Felicitas improved. Balance: Static Sitting: Normal Dynamic Sitting: Normal Static Standing: Fair Dynamic Standing: Fair Assessment: Patient is known to this provider from previous admission. Anxiety level increases risk for falls. ADvised patient to continue with using FWW to off load B knees. OP PT services in preparation for upcoming TKA revision at [facility]. Patient continues to present with clinical signs and symptoms consistent with current/admitting diagnoses that have resulted to mobility limitations, gait instability, generalized weakness, and overall ADL decline as demonstrated by the following impairment level findings: 1. Decreased strength to B knee major muscle groups 2. Impaired standing balance 3. Impaired activity tolerance 4. Limitation of joint range of motion in B knees 5. Obesity Impairments are contuing to contribute to the following functional limitations: 1. Difficulty with ambulation without assistive device 2. Increased completion time for mobility ADL performance 3. Increased risk for falls 4. Difficulty with managing steps alone safely Goals: Goals X1 week 1. Supine-Sit independent MET 2. Sit-Supine independent MET 3. Sit-Stand independent MET 4. Stand-Sit independent with front wheeled walker MET 5. Bed-Chair independent with front wheeled walker MET 6. Chair-Bed independent with front wheeled walker MET 7. Supervision gait on level surface with use of front wheeled walker for at least 15 feet without report of pain nor dyspnea MET 8. Supervision stair negotiation while holding onto 1 rail for at least 5 steps without report of pain nor dyspnea MET 9. Good static and dynamic standing balance/tolerance NOT MET DISCHARGE RECOMMENDATIONS: OP PT services for prehab for TKA. TREATMENT CODE/TIME: NC Thank you for the opportunity to participate in the care of this patient. Alexandra Moore PT, DPT, CLT [facility] [place], [place]
== END 2021-01-02 15:33 | disposition home or self-care (01) | DRG 560 ==
LOC: ER 15:39 → MS 12-30 10:44
PROVIDERS: Internal Medicine; Admitting Provider Family Medicine; Emergency Provider Emergency Medicine; PCP Nurse Practitioner Family; Visit Provider Family Medicine
DX: T84.84XA Pain due to internal orthopedic prosthetic devices, implants and grafts, initial encounter (principal); Z68.42 Body mass index [BMI] 45.0-49.9, adult; M17.12 Unilateral primary osteoarthritis, left knee; I10 Essential (primary) hypertension; E78.5 Hyperlipidemia, unspecified; E66.01 Morbid (severe) obesity due to excess calories; F32.9 Major depressive disorder, single episode, unspecified; Z85.038 Personal history of other malignant neoplasm of large intestine; I07.1 Rheumatic tricuspid insufficiency; R16.0 Hepatomegaly, not elsewhere classified; M25.561 Pain in right knee; R26.2 Difficulty in walking, not elsewhere classified; Z20.822 Contact with and (suspected) exposure to COVID-19
CPT/HCPCS: 36415; 73562; 80048; 85027; 87635; 96374; 96375; 97110; 97162; 97530; 99285; 71046; 85025; 99219; 99225; 99232; 99239; 99284; G0378; J1644; J2405; J3490

== ENCOUNTER → 2021-05-16 08:26 | Outpatient (BNVA) | payer MEDICARE, OTHER, SELFPAY | PROVIDERS: PCP Nurse Practitioner Family; Referring Provider Nurse Practitioner Family | DX: M17.12 Unilateral primary osteoarthritis, left knee (principal); Z96.651 Presence of right artificial knee joint | CPT/HCPCS: 20610; J1040 ==

== ENCOUNTER 2021-06-27 20:23 | Outpatient (REF) | payer MEDICARE, OTHER, SELFPAY ==
[2021-06-27 21:02] LABS: Hemoglobin A1C 5.9 % (<5.7)
[2021-06-27 22:18] LABS: ALT 27 U/L (14-59); AST 13 U/L (15-37); Anion Gap 8.1 mmol/L (3-11); BUN 24 mg/dL (7-18); CO2 28.9 mmol/L (21.0-32.0); Calcium 9.1 mg/dL (8.5-10.1); Calculated LDL 78 mg/dL (<100); Chloride 104 mmol/L (98-107); Cholesterol 159 mg/dL (<200); Estimated GFR 55.14 (mL/min/1.73m2); Glucose 104 mg/dL (74-106); HDL Cholesterol 58 mg/dL (40-60); Potassium 4.3 mmol/L (3.5-5.1); Sodium 141 mmol/L (136-145); TSH (W/Ref FT4) 3.46 uIU/mL (0.36-3.74); Triglyceride 117 mg/dL (<150)
[2021-06-27 22:33] LABS: Creatine Kinase 46 U/L (26-192)
[2021-06-28 16:45] LABS: CEA 2.7 ng/mL (See Note)
== END 2021-06-27 20:24 | disposition home or self-care (01) ==
LOC: NCHCN 20:23
PROVIDERS: PCP Nurse Practitioner Family; Visit Provider Nurse Practitioner Family
DX: E78.5 Hyperlipidemia, unspecified (principal); R73.03 Prediabetes; E23.0 Hypopituitarism; Z85.038 Personal history of other malignant neoplasm of large intestine; I10 Essential (primary) hypertension; F32.0 Major depressive disorder, single episode, mild
CPT/HCPCS: 80048; 80061; 82550; 82378; 83036; 84443; 84450; 84460

== ENCOUNTER → 2021-07-10 09:02 | Outpatient (BNVA) | payer MEDICARE, OTHER, SELFPAY | PROVIDERS: PCP Nurse Practitioner Family; Referring Provider Nurse Practitioner Family; Visit Provider Student in an Organized Health Care Education/Training Program | DX: M17.12 Unilateral primary osteoarthritis, left knee (principal); T84.84XA Pain due to internal orthopedic prosthetic devices, implants and grafts, initial encounter; T84.82XA Fibrosis due to internal orthopedic prosthetic devices, implants and grafts, initial encounter; Z96.651 Presence of right artificial knee joint | CPT/HCPCS: 99213 ==

== ENCOUNTER 2021-08-14 02:00 | Outpatient (CLI) | payer MEDICARE, OTHER, SELFPAY ==
--- NOTE | 2021-08-14 | DI.MAMMO_ITS ---
Exam(s) MAMMO SCREENING EXAM: MAMMO SCREENING CLINICAL HISTORY: PREVENTIVE HEALTH CARE Z00.00, SCREENING FOR BREAST CANCER. TECHNIQUE: Bilateral full field digital CC and MLO mammographic images were obtained with 3D tomosyn thesis and utilizing computer aided detection (CAD). COMPARISON: Prior mammograms were reviewed, the most recent being March 2019. FINDINGS: There has been no significant change in appearance and distribution of the fibroglandular tissue. There are no new spiculated masses nor malignant appearing microcalcification groups. Benign-appearing unchanged nodule the right breast has the appearance of benign intramammary lymph no de. There is no significant architectural distortion nor skin thickening-retraction. IMPRESSION: No radiographic evidence of malignancy. BI-RADS Category 1 - Negative Breast Density - Category B - Scattered areas of fibroglandular density Breast density Category C or D implies that the patient has dense breast tissue. Dense breast tissue can make it harder to find cancer on a mammogram. Dense breast tissue is also associated with an incr eased risk of breast cancer. This information about the result of the mammogram report was provided to the patient to raise their awareness. Use this report when you speak with the patient about their risks for breast cancer, which includes their family history. At that time, you may recommend additional screening tests (Ultrasoun d or MRI) as these tests may add significant information. A negative radiographic report should not delay biopsy if a dominant or clinically suspicious mass is present. Up to ten percent of cancers are not identified on mammography. A negative report may reinforce clinical impression. Adenosis and dense breasts may obscure an underlying neoplasm. False positive reports average 6 to 10%. Patient will receive a letter notifying them of these results.
== END 2021-08-14 02:20 ==
PROVIDERS: PCP Nurse Practitioner Family; Visit Provider Nurse Practitioner Family
DX: Z12.31 Encounter for screening mammogram for malignant neoplasm of breast (principal)
CPT/HCPCS: 77063; 77067

== ENCOUNTER → 2021-10-16 01:50 | Outpatient (CLI) | payer MEDICARE, OTHER, SELFPAY ==
--- NOTE | 2021-10-16 11:00 | DI.NM_ITS ---
APPROVED REPORT Exam: Pharmacologic Patient Location: Out-Patient Room/Bed: Stress Nurse: Caity Wyatt RN Ordering Provider:EARL AVN, Contact Number: [phone] BMI: 43.89 Baseline Rhythm: Sinus Bradycardia, Sinus Rhythm Comment: Flipped T wave lead V2 Indications: Chest pain, exertional SOB Medical History Medical History: Hypertension, hyperlipidemia, prediabetes, obesity, tricuspid regurgitation Cardiac Medications: Simvastatin, losartan, aspirin, gabapentin Allergies: Nickel , sulfamethoxazole, buproprion, trimethoprim, aripiprazole Cardiac Risk Factors: Hypertension, hyperlipidemia, prediabetes, obesity, smoker (former) Previous Cardiac Procedures: None Pretest Chest Pain Characteristics: None Exercise History: Sedentary Physical Disabilities: Knees Lung Sounds: Clear to auscultation Heart Sounds: Regular Stress Test Details Test: Pharmacologic stress was paired with low level exercise. Reason for pharmacologic stress test: physical limitation. Nuclear Acquisition: Rest Tc-99m/Stress Tc-99m 1 day Rest Isotope: Tc-99m Sestamibi. Dose: 12.0 Date: 10/16/2021 Injection Time: 1200 Stress Isotope: Tc-99m Sestamibi. Dose: 37.8 Date: 10/16/2021 Injection Time: 1325 HR Resting HR Supine: 60 bpm Max Heart Rate (APMHR): 152.220261 bpm Resting HR Standin bpm Target HR (85% APMHR): 129.640483 bpm Max HR Achieved: 136 bpm % of APMHR: 89.47 Recovery HR: 92 bpm BP Resting BP Supine: 150/84 mmHg Resting BP Standin/86 mmHg Max BP: 188/62 mmHg Recovery BP: 158/68 mmHg ECG Resting ECG: Sinus Rhythm, Sinus Bradycardia, , Clear Ectopy: None Stress ECG: Sinus Rhythm, Sinus Tachycardia ST Change: No significant ST segment changes noted Arrhythmia: None Recovery ECG: Sinus Rhythm Recovery ST Change: No significant ST segment changes noted Recovery Arrhythmia: None Clinical Stress Symptoms: General Fatigue, Dyspnea Exercise duration: 4 min30 sec Exercise capacity: 1.89 METs Angina Score: None Rate Pressure Product: [id number] Stress ECG Conclusion 1. This was a pharmacologic stress test, along with low-level exercise 2. The resting electrocardiogram was normal 3. Peak heart rate achieved was 89% of predicted 4. Exercise capacity was poor, 1.89 METS 5. The electrocardiographic portion of the test showed no evidence of myocardial ischemia 6. See MPI report Stress Test Summary STAGE HR BP Symptoms NOTES Supine 71 140/86 1 min post Lexiscan injection 129 160/80 Severe SOB SpO2 96% 3 min post Lexiscan injection 114 188/62 Mild SOB SpO2 96% 6 min post Lexiscan injection 92 158/68 SOB resolved SpO2 97% Pharmacologic stress was paired with low level exercise due to physical limitation. Patient walked on treadmill at 1.0 mph and 0% grade during Regadenoson administration; tolerated testing well. MPI Conclusion Myocardial perfusion is normal, no ischemia or infarction EF 57%, normal wall motion Radiologist Interpretation Radiologist Interpretation by: Dustin Jones MD Interpretation Date/Time: 10/19/2021 16:56:48
[2021-10-16] MEDS: Regadenoson 0.4 MG/5 ML SYR IVP (13:15)
== END ==
PROVIDERS: PCP Nurse Practitioner Family; Visit Provider Nurse Practitioner Family
DX: R07.89 Other chest pain (principal)
CPT/HCPCS: 78452; 93016; 93018; 93017; J2785

== ENCOUNTER → 2021-12-06 01:11 | Outpatient (CLI) | payer MEDICARE, OTHER, SELFPAY ==
--- NOTE | 2021-12-06 07:32 | DI.US_ITS ---
APPROVED REPORT EXAM: Comprehensive 2D, Doppler, and color-flow Echocardiogram Patient Location: Out-Patient Engagement Quality Consultant: Janice Cooley RDCS (AE) Indications: Exertional shortness of breath Other Information Study Quality: Good Conclusion Normal left ventricular wall thickness and chamber size. Estimated ejection fraction is 60%. Wall m otion is normal Normal right ventricular size and systolic function Both atria are normal in size There is no structural or hemodynamically significant valvular disease Estimated right ventricular systolic pressure is 26 mmHg Wall motion Left Ventricle The left ventricle is normal size. The left ventricular systolic function is normal. The left ventric ular ejection fraction is within the normal range. There is normal left ventricular wall thickness. T here is normal LV segmental wall motion. There is no ventricular septal defect visualized. LVEF is 60 %. Right Ventricle The right ventricle is normal size. The right ventricular systolic function is normal. The RVSP is 25 .7 mmHg. Atria The left atrium size is normal. The right atrium size is normal. The interatrial septum is intact wit h no evidence for an atrial septal defect. Aortic Valve The aortic valve is normal in structure. Aortic valve is trileaflet. There is no aortic valvular sten osis. No aortic regurgitation is present. Mitral Valve The mitral valve is normal in structure. No evidence of mitral valve stenosis. Trace to mild mitral r egurgitation. Tricuspid Valve The tricuspid valve is normal in structure. There is no tricuspid valve stenosis. Trace to mild tricu spid regurgitation. Pulmonic Valve The pulmonary valve is normal in structure. There is no pulmonic valvular stenosis. There is no pulmo salvador valvular regurgitation. Great Vessels The aortic root is normal in size. The ascending aorta is normal in size. Aortic arch is normal in ca liber. IVC is normal in size and collapses >50% with inspiration. Pericardium There is no pericardial effusion. 2D Dimensions IVSD d PLAX 1.01 cm F: 0.6-1.0 LV Vol A2C d MOD 97.4 mL LVPW d PLAX 1.04 cm F: 0.6 - 1.0 LV Vol A4C d MOD 102.3 mL LVID d PLAX 5.06 cm F: 3.8 - 5.2 LA vol/ BSA A2C s A-L 24.0 mL/m2 LVDs 3.45 cm F: 2.2 - 3.5 LA vol/ BSA A4C s A-L 24.9 mL/m2 Ao Root d 2.83 cm F: 2.7 - 3.3 LA Vol/ BSA Biplane s A-L 24.7 mL/m2 RA Area A4C 16.27 cm2 LA Area A4C s MOD 18.30 cm2 RA Vol/ BSA A4C s A-L 21.2 mL/m2 LA Area A2C s MOD 17.80 cm2 Ao Asc Diam d 3.34 cm F: 2.3 - 3.1 LV EF A4C MOD 60.4 % LV EF Teichholz 59.5 % LV EF A2C MOD 61.8 % LVEF (Taylor's) 60.73 % F: 54 - 74 LV EF Biplane MOD 60.7 % LV Volume 75.24 mL F: 46 - 106 SV 61.58 mL LV Volume Index 36.52 mL/m2 F: 29 - 61 SV Index 29.81 mL/m2 LV Vol Biplane MOD 101.4 mL FS 31.70 % M-Mode TAPSE 2.19 cm (M/F) >1.7 LV Diastology MV E' medial 0.078 (>0.07 m/s) E/A Ratio 0.9 LV E/e MED 11.50 (<14) MV E Vmax 0.90 (0.4-1.3 m/s) MV E' lateral 0.084 (>0.1 m/s) MV A Vmax 0.95 (0.4-1.3 m/s) LV E/e LAT 10.65 (<14) MV E/A Ratio 0.92 MV E/E' medial 11.53 MV E/E' lateral 10.69 Aortic Valve LVOT Area 3.10 cm2 AoV Area Vmax 2.48 cm2 LVOT Vmax 1.35 m/s AoV Area/ BSA (Vmax) 1.20 cm2/m2 LVOT Mean Fredi. 0.88 m/s BENITO Mean Fredi. 2.22 cm2 LVOT Peak Grad 7.3 mmHg BENITO Mean Fredi. Index 1.08 cm2/m2 LVOT Mean Grad 3.7 mmHg LVOT VTI 0.302 m LVOT Diam s 1.95 cm AoV Vmax 1.68 m/s Velocity Ratio 0.80 AoV Mean Fredi. 1.23 m/s AoV Peak Grad 11.3 mmHg LVOT SV 93.54 mL AoV Mean Grad 6.4 mmHg AoV VTI 0.359 m AoV Area VTI 2.61 cm2 AoV Area/ BSA (VTI) 1.26 cm/m2 Mitral Valve MV DT 235 (160-240 msec) MV PHT 68 msec MV Area PHT 3.23 cm2 MV VTI 0.414 m MV Area VTI 2.26 (4.0-6.0 cm2) Pulmonary Valve PV Vmax 1.18 (0.5-1.5 m/s) RVOT Peak Gr. 2.39 mmHg PV Peak Grad 5.6 mmHg RVOT Mean Gr. 1.10 mmHg PV Mean Grad 2.4 mmHg RVOT VTI 0.137 m PV VTI 0.223 m RVOT Vmax 0.77 m/s Tricuspid Valve TR Peak Grad 22.7 mmHg TR Vmax 2.38 m/s RA Pressure 3.00 mmHg RVSP (TR) 25.7 mmHg
== END ==
PROVIDERS: PCP Nurse Practitioner Family; Visit Provider Nurse Practitioner Family
DX: R06.09 Other forms of dyspnea (principal)
CPT/HCPCS: 93306

== ENCOUNTER 2022-08-02 13:07 | Outpatient (REF) | payer MEDICARE, SELFPAY ==
[2022-08-02 16:44] LABS: ALT 29 U/L (14-59); AST 15 U/L (15-37); Albumin 3.6 g/dL (3.4-5.0); Alkaline Phosphatase 79 U/L (46-116); Anion Gap 7.5 mmol/L (3-11); BUN 15 mg/dL (7-18); Bilirubin, Total 0.3 mg/dL (0.2-1.0); CO2 29.5 mmol/L (21.0-32.0); CREATININE 0.9 mg/dL (0.55-1.02); Calcium 9.1 mg/dL (8.5-10.1); Chloride 106 mmol/L (98-107); Glucose 101 mg/dL (74-106); HDL Cholesterol 62 mg/dL (40-60); LDL CHOLESTEROL 80 mg/dL (<100); Potassium 5.2 mmol/L (3.5-5.1); Sodium 143 mmol/L (136-145); Total Protein 6.5 g/dL (6.4-8.2)
[2022-08-02 17:28] LABS: Creatine Kinase 49 U/L (26-192); FREE T4 0.82 ng/dL (0.76-1.46)
== END 2022-08-02 13:08 | disposition home or self-care (01) ==
LOC: NCHCN 13:07
PROVIDERS: PCP Nurse Practitioner Family; Visit Provider Nurse Practitioner Family
DX: I10 Essential (primary) hypertension (principal); E78.5 Hyperlipidemia, unspecified; E23.0 Hypopituitarism
CPT/HCPCS: 80053; 82550; 83721; 83718; 84439; 84443

== ENCOUNTER 2022-08-19 13:21 | Emergency (ER) | payer MEDICARE, SELFPAY ==
[2022-08-19 13:25] VITALS: BP 140/72; PULSE 85; RESP 18; TEMP 36.9; O2SAT 94
--- NOTE | 2022-08-19 13:45 | DI.RAD_ITS ---
Exam(s) XR LUMBAR SPINE COMPLETE EXAM: XR LUMBAR SPINE COMPLETE CLINICAL HISTORY: back pain. TECHNIQUE: 2D digital imaging was performed. Five views. COMPARISON: No exams were available for comparison FINDINGS: BONES: No fracture or destructive lesion. Vertebral body heights are maintained. facet hypertrophy identified at L4-5 and L5-S1.. DISKS: Degenerative disc changes greatest at L1-2 and L2-3. ALIGNMENT: Mild levoscoliosis. SOFT TISSUE: Bowel gas pattern unremarkable. IMPRESSION: Degenerative changes DATA REPOSITORY: RADIATION DOSE DELIVERED:
[2022-08-19] MEDS: Cyclobenzaprine 10 MG TAB PO (14:34)
--- NOTE | 2022-08-19 14:34 | ED.GENADUL_ITS ---
Discharge Plan Disposition Patient Disposition: Home Condition: Improving Discharge Details Clinical Impression: Lumbar back pain Primary Care Provider: Mary Barton ED Provider: Mohan Hassan Home Meds and New Rx's Prescriptions: New cyclobenzaprine 10 mg tablet 10 mg PO TID PRN (Reason: muscle spasm) Qty: 20 0RF prednisone 20 mg tablet 40 mg PO DAILY Qty: 8 0RF Continued meloxicam 15 mg tablet 15 mg PO DAILY Qty: 30 3RF One-A-Day Women's 50 Plus 400-20 mcg tablet 1 tab PO DAILY levothyroxine 50 mcg tablet 50 mcg PO DAILY buspirone 10 mg tablet 20 mg PO BID gabapentin 100 mg capsule 200 mg PO DAILY gabapentin 300 mg capsule 300 mg PO BID escitalopram oxalate 20 mg tablet 20 mg PO DAILY aspirin [Aspirin Low-Strength] 81 MG tablet,chewable 81 mg PO DAILY losartan [Cozaar] 50 MG tablet 50 mg PO DAILY simvastatin 40 MG tablet 40 mg PO DAILY calcium carbonate [Tums] 200 mg calcium (500 mg) Tablet,Chewable 400 - 800 mg PO PRN PRN rizatriptan [Maxalt-COMPUTER LABORATORY TECHNICIAN] 5 mg Tablet,Disintegrating 5 mg PO .UP TO TWO DAILY PRN cholecalciferol (vitamin D3) [Vitamin D3] 1,000 unit Capsule 1,000 unit PO DAILY lidocaine 5 % Adhesive Patch,Medicated 1 patch topical Q24H Qty: 30 0RF Rx Instructions: apply to L knee on for 12 hours, off for 12 hrs docusate sodium [Colace] 100 mg Capsule 100 mg PO TID PRN PRNQty: 0 0RF Acetaminophen [Tylenol] 650 mg PO Q6H Qty: 1 1RF diclofenac sodium 1 % Gel 2 g topical QID Qty: 100 0RF Discharge Instructions Instructions: Back Pain (ED) Additional Instructions: You may restart your meloxicam tomorrow and otherwise continue to take your normally prescribed medications. Please use the muscle relaxer as needed and perform activities as tolerated. If you develop any significant worsening of your symptoms feel free to return the emergency department for reassessment otherwise follow-up with your primary care provider for recheck your symptoms. Referrals: Mary Barton [Primary Care Provider] - 1 week Medical Decision Making Patient here for back pain. Patient reports that she has had similar type back pain intermittent for years and thought it was due to the way she sleeps her mattress. She states that on most mornings she wakes up and has moderate amount of back pain which will slowly resolve as the day goes on. Over the past 10 days though she has had severe persistent back pain with spasms. Patient denies any blunt injury or trauma, fever chills, change in bowel or bladder function, weakness to lower extremities or radiation of pain to extremities. Physical exam consistent with lumbar back pain. LOW risk for ABDOMINAL AORTIC ANEURYSM, CAUDA EQUINA SYNDROME, EPIDURAL MASS LESION, SPINAL STENOSIS, OR HERNIATED DISK CAUSING SEVERE STENOSIS, thus I consider the discharge disposition reasonable. Did perform radiological imaging of the back which did show some degenerative disc disease. We will place patient on short burst of steroids and encouraged her to restart her meloxicam which she had stopped. Patient did have improvement in the emergency department after receiving IM ketorolac and Flexeril. We will also give home prescription for Flexeril. We have discussed the diagnosis and risks, and we agree with discharging home to follow-up with their primary doctor. We also discussed returning to the Emergency Department immediately if new or worsening symptoms occur. We have discussed the symptoms which are most concerning (e.g., saddle anesthesia, urinary or bowel incontinence or retention, changing or worsening pain) that necessitate immediate return. After discussion of diagnosis and plan of care patient has no further needs, questions, or concerns and states clear understanding to return to the emergency department for any worsening symptoms. This documentation was generated using [employer] dictation system, please disregard any oddities of phrase or misspellings. Imaging Data Radiologic Study: Imaging: X-Ray Radiologist's impression: Exam(s) PROCEDURE INFORMATION: Exam: XR Lumbosacral Spine Exam date and time: 08/19/2022 2:53 PM Age: 71 years old Clinical indication: Low back pain TECHNIQUE: Imaging protocol: Radiologic exam of the lumbosacral spine. Views: 4 or 5 views. COMPARISON: CR XR HIP PELVIS ADULT BL 12/23/2019 3:34 PM FINDINGS: Bones/joints: There is no evidence of acute fracture.There is no evidence of malalignment or dislocation. Intervertebral disc space narrowing L1 through L3 consistent with degenerative disc disease. Soft tissues: Unremarkable. IMPRESSION: 1. There is no evidence of acute fracture.There is no evidence of malalignment or dislocation. 2. Intervertebral disc space narrowing L1 through L3 consistent with degenerative disc disease. HPI General Mode of arrival: ambulatory . Date/Time Provider Initiated Documentation: 08/19/22 13:59 . Limitations to Documentation: no limitations . Information obtained by: patient and RN notes reviewed . History of Present Illness 71 year old F presents to the emergency department with the chief complaint of Back pain, described as moderate, with intensity rated at 7. Quality is described as sharp, and is localized to the back. Patient reports no radiation. Patient started experiencing this day(s) (10) and it has been constant. Immobilization improves symptom(s), and Rest improves symptom(s), Movement worsens symptoms . Patient notes no other symptoms.. Patient did receive the following treatments prior to arrival, other (Acetaminophen) Related Data Home Medications Medication Instructions Recorded Confirmed aspirin 81 mg chewable tablet 81 mg PO DAILY 09/18/12 07/10/21 (Aspirin Low-Strength) losartan 50 mg tablet (Cozaar) 50 mg PO DAILY 03/26/16 07/10/21 simvastatin 40 mg tablet 40 mg PO DAILY 03/26/16 07/10/21 calcium carbonate 200 mg calcium 400 - 800 mg PO PRN PRN 07/30/18 07/10/21 (500 mg) chewable tablet (Tums) cholecalciferol (vitamin D3) 25 1,000 unit PO DAILY 07/30/18 07/10/21 mcg (1,000 unit) capsule (Vitamin D3) rizatriptan 5 mg disintegrating 5 mg PO .UP TO TWO DAILY PRN 07/30/18 07/10/21 tablet (Maxalt-COMPUTER LABORATORY TECHNICIAN) levothyroxine 50 mcg tablet 50 mcg PO DAILY 02/04/20 07/10/21 sdtlujvofegl-cnkuxynk-qpgnita-folic 1 tab PO DAILY 02/04/20 07/10/21 acid 400 mcg-vit K1 20 mcg tablet (One-A-Day Women's 50 Plus) meloxicam 15 mg tablet 15 mg PO DAILY #30 tabs 03/18/20 07/10/21 docusate sodium 100 mg capsule 100 mg PO TID PRN PRN #0 caps 12/01/20 07/10/21 (Colace) lidocaine 5 % topical patch 1 patch topical Q24H #30 ea 12/01/20 07/10/21 Acetaminophen [Tylenol] 650 mg PO Q6H #1 tab 01/02/21 07/10/21 diclofenac sodium 1 % topical gel 2 g topical QID #100 grams 01/02/21 07/10/21 buspirone 10 mg tablet 20 mg PO BID 07/10/21 07/10/21 escitalopram oxalate 20 mg tablet 20 mg PO DAILY 07/10/21 07/10/21 gabapentin 100 mg capsule 200 mg PO DAILY 07/10/21 07/10/21 gabapentin 300 mg capsule 300 mg PO BID 07/10/21 07/10/21 cyclobenzaprine 10 mg tablet 10 mg PO TID PRN muscle spasm #20 08/19/22 tabs prednisone 20 mg tablet 40 mg PO DAILY #8 tabs 08/19/22 Previous Rx's Medication Instructions Recorded meloxicam 15 mg tablet 15 mg PO DAILY #30 tabs 03/18/20 docusate sodium 100 mg capsule 100 mg PO TID PRN PRN #0 caps 12/01/20 (Colace) lidocaine 5 % topical patch 1 patch topical Q24H #30 ea 12/01/20 Acetaminophen [Tylenol] 650 mg PO Q6H #1 tab 01/02/21 diclofenac sodium 1 % topical gel 2 g topical QID #100 grams 01/02/21 cyclobenzaprine 10 mg tablet 10 mg PO TID PRN muscle spasm #20 08/19/22 tabs prednisone 20 mg tablet 40 mg PO DAILY #8 tabs 08/19/22 Allergies Allergy/AdvReac Type Severity Reaction Status Date / Time nickel [Nickel] Allergy Mild Unverified 08/19/22 13:28 sulfamethoxazole AdvReac Unknown Unverified 08/19/22 13:28 [From Bactrim] trimethoprim [From Bactrim] AdvReac Unknown Unverified 08/19/22 13:28 aripiprazole AdvReac Verified 08/19/22 13:28 bupropion [From Wellbutrin] AdvReac CONFUSION Verified 08/19/22 13:28 General Stated Complaint: FlankPain TIFFANY: 3 Review of Systems Constitutional Constitutional: Denies chills and Denies fever(s) Cardiovascular Cardiovascular: Denies chest pain and Denies dyspnea on exertion Respiratory Respiratory: Denies cough and Denies dyspnea on exertion Gastrointestinal Gastrointestinal: Denies abdominal pain, Denies change in bowel habits, Denies diarrhea, Denies nausea and Denies vomiting Genitourinary Genitourinary: Denies urinary incontinence Musculoskeletal Musculoskeletal: Reports as per HPI and Reports back pain Neurologic Neurologic: Denies sensory deficit PFSH All Active Problems Lumbar back pain (Acute) Hypertension (Chronic) Hyperlipemia (Acute) Effusion, left knee (Acute) Intractable pain (Acute) Ambulatory dysfunction (Acute) Obesity, morbid, BMI 40.0-49.9 (Chronic) Osteoarthritis of left knee (Chronic) DEPO INJECTION: 05/16/21 Inability to ambulate due to left knee (Acute) Painful total knee replacement, right (Acute) Arthrofibrosis of total knee arthroplasty (Acute) Weakness (Acute) Unilateral primary osteoarthritis, left knee (Acute) Depo-Medrol injection: 11/03/2020, 05/12/2020 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 (Acute) Status post cataract extraction and insertion of intraocular lens of right eye (Chronic 08/18/18) Diplopia (Acute) Head ache (Acute) Status post cataract extraction and insertion of intraocular lens of left eye (Chronic 08/04/18) Medical History Blood glucose elevated Cortical cataract of left eye Depression Enlarged liver History of colon cancer Nuclear sclerotic cataract of left eye Obesity Posterior subcapsular age-related cataract of left eye Tricuspid regurgitation Surgical History History of hemicolectomy Social History Smoking/Tobacco Use Status: Former Tobacco Use Smoking risk assessment performed?: Yes Alcohol Intake: never Drug use: Occasionally Substance use type: marijuana Details: marijuana last night Do you feel safe at home: Yes Do you feel safe in your relationship?: Yes Exam Const General: cooperative and no acute distress Orientation: alert, awake and oriented x3 Neck Neck: normal visual inspection, full ROM and no meningeal signs Resp Effort & Inspection: normal respiratory effort Auscultation: clear to auscultation bilaterally Cardio Rate: regular rate Rhythm: regular rhythm Heart Sounds: S1 normal and S2 normal GI Palpation: no hepatosplenomegaly, no aortic enlargement, no masses and no pulsatile masses Back/Spine/Pelvis Thoracic/Lumbar Spine: pain with thoraco-lumbar ROM and thoraco-lumbar ROM limited Pelvis: no pain with anterior-posterior compression and no pain with lateral compression Sacroiliac joints: bilaterally tender to palpation Neuro General: patient alert, patient awake and patient oriented x3 DTR's: Rt Patellar: 1+, Lt Patellar: 1+, Rt Ankle: 1+ and Lt Ankle: 1+ Course Vital Signs Vital signs: Vital Signs Temperature 36.9 C 08/19/22 13:25 Pulse 85 08/19/22 13:25 Respiratory Rate 18 08/19/22 13:25 Blood Pressure 140/72 08/19/22 13:25 Pulse Oximetry 94 08/19/22 13:25 Temperature 36.9 C 08/19/22 13:25 Temperature Source Tympanic 08/19/22 13:25 Pulse 85 08/19/22 13:25 Respiratory Rate 18 08/19/22 13:25 Respiratory Effort Normal 08/19/22 13:29 Blood Pressure 140/72 08/19/22 13:25 Blood Pressure Position Sitting 08/19/22 13:25 Pulse Oximetry 94 08/19/22 13:25 Oxygen Delivery Method Room Air 08/19/22 13:25 Oxygen Flow Rate 0 08/19/22 13:25 Pain Level 9 08/19/22 13:25
[2022-08-19] MEDS: Ketorolac 30 MG/ML VIAL IM (14:35)
--- NOTE | 2022-08-19 15:26 | DI.VRAD_ITS ---
PROCEDURE INFORMATION: Exam: XR Lumbosacral Spine Exam date and time: 08/19/2022 2:53 PM Age: 71 years old Clinical indication: Low back pain TECHNIQUE: Imaging protocol: Radiologic exam of the lumbosacral spine. Views: 4 or 5 views. COMPARISON: CR XR HIP PELVIS ADULT BL 12/23/2019 3:34 PM FINDINGS: Bones/joints: There is no evidence of acute fracture.There is no evidence of malalignment or dislocation. Intervertebral disc space narrowing L1 through L3 consistent with degenerative disc disease. Soft tissues: Unremarkable. IMPRESSION: 1. There is no evidence of acute fracture.There is no evidence of malalignment or dislocation. 2. Intervertebral disc space narrowing L1 through L3 consistent with degenerative disc disease. Dictated and Authenticated by: Ca Montgomery MD. Ordering:LARON Preston MD
--- NOTE | 2022-08-19 15:40 | NUR.NOTE ---
Referral made to PCP in one week for lumbar back pain per Josue Hassan. Put the referral in the care manger's box for f/u assistance.Nursing Note:
[2022-08-19 15:52] VITALS: BP 140/72; PULSE 85; RESP 18; TEMP 36.9; O2SAT 94
== END 2022-08-19 17:54 | disposition home or self-care (01) ==
PROVIDERS: Emergency Provider Nurse Practitioner Family; PCP Nurse Practitioner Family
DX: M54.50 Low back pain, unspecified (principal)
CPT/HCPCS: 96372; 96374; 99284; 72110; J1885

== ENCOUNTER 2022-08-28 16:40 | Outpatient (REF) | payer MEDICARE, SELFPAY | END 2022-08-28 16:41 | disposition home or self-care (01) | LOC: NCHCN 16:40 | PROVIDERS: PCP Nurse Practitioner Family; Visit Provider Nurse Practitioner Family | DX: R10.31 Right lower quadrant pain (principal) | CPT/HCPCS: 87086 ==

== ENCOUNTER 2022-09-11 01:26 | Outpatient (CLI) | payer MEDICARE, SELFPAY ==
--- NOTE | 2022-09-11 10:05 | DI.CT_ITS ---
Exam(s) CT RENAL COLIC WO EXAM: CT RENAL COLIC WO CLINICAL HISTORY: RT FLANK PAIN R10.9 WORSENING BACK PAIN. TECHNIQUE: Imaging Protocol: Axial computed tomography images with coronal and sagittal reformatted images were created and reviewed. COMPARISON: CT CHEST FOR PULMONARY EMBOLUS from 05/12/2015 FINDINGS: ABDOMEN: Lung Bases: Normal where visualized. Liver: There is fatty infiltration of the liver. The liver is enlarged. No measurable mass. Gallbladder and biliary tract: No radiodense calculus or biliary ductal dilation. Pancreas: Normal density, no abnormal calcifications or inflammatory process. Spleen: Calcified granuloma again seen in the spleen. Kidneys: Normal size, contour and axis.No radiodense stones or obstructive uropathy. No masses seen. Adrenal glands: No mass is seen. Lymph nodes: Within normal limits. Abdominal Aorta: Abdominal portion non-dilated. Mild atherosclerosis. PELVIS: Bladder:Symmetric distention, no gross wall thickening. Bowel: No obstruction or bowel wall thickening. No evidence of appendicitis. Postsurgical changes se en at the rectosigmoid junction. Peritoneal cavity: No ascites, collection or mesenteric inflammatory response. No free air. Reproductive organs: Status post hysterectomy. Bones: Within normal limits. Soft Tissues: Within normal limits. IMPRESSION: 1. No evidence of nephrolithiasis or hydronephrosis. 2. Hepatic steatosis and hepatomegaly. RADIATION DOSE DELIVERED: 1,245.76mGy.cm Total DLP DATA REPOSITORY: All CT scans at this facility are submitted to the National Radiology Data Registry (NRDR) Dose Index Registry (DIR) with the [employer] (ACR). RADIATION OPTIMIZATION: All CT scans at this facility use at least one of these dose optimization te chniques: automated exposure control; mA and/or kV adjustment per patient size (includes targeted exa ms where dose is matched to clinical indication); or iterative reconstruction.
== END 2022-09-11 01:46 ==
LOC: DI 01:27
PROVIDERS: PCP Nurse Practitioner Family; Visit Provider Nurse Practitioner Family
DX: R10.9 Unspecified abdominal pain (principal)
CPT/HCPCS: 74176

== ENCOUNTER 2022-09-18 16:56 | Outpatient (REF) | payer MEDICARE, SELFPAY ==
[2022-09-18 19:56] LABS: HCT 41.7 % (36.0-46.0); HGB 13.7 g/dL (11.2-15.7); MCH 29.5 pg (27.0-33.0); MCHC 32.9 % (32.0-36.0); MCV 90 fL (80-95); MPV 11.9 fL (8.0-11.0); Platelet Count 200 10^3/uL (130-400); RBC 4.65 10^6/uL (3.93-5.22); RDW 13.1 % (11.7-14.6); RDW-SD 42.5 fL; WBC 5.36 10^3/uL (4.4-10.8)
[2022-09-18 20:00] LABS: Vitamin D 25 Total 33.9 ng/mL (30-100)
[2022-09-18 20:25] LABS: Iron 72 ug/dL (50-170); Total Iron Binding Capacity 331 ug/dL (250-450); Transferrin Sat 22 % (15-50)
[2022-09-20 09:36] LABS: Hepatitis C Ab w Rflx HCV PCR Negative (Negative)
[2022-09-20 12:02] LABS: IgA 86 mg/dL (85-499); Interpretation (See Note); Tissue Transglutaminase IgA <1.2 U/mL (<4.0)
== END 2022-09-18 16:57 | disposition home or self-care (01) ==
LOC: NCHCN 16:56
PROVIDERS: PCP Nurse Practitioner Family; Visit Provider Nurse Practitioner Family
DX: K76.0 Fatty (change of) liver, not elsewhere classified (principal); F32.89 Other specified depressive episodes; M54.59 Other low back pain; Z11.59 Encounter for screening for other viral diseases; Z68.42 Body mass index [BMI] 45.0-49.9, adult; E66.01 Morbid (severe) obesity due to excess calories
CPT/HCPCS: 82306; 82784; 83516; 85027; 86709; 86803; 87340; 83540; 83550

== ENCOUNTER 2022-09-19 21:08 | Outpatient (REF) | payer MEDICARE, SELFPAY ==
[2022-09-21 09:19] LABS: Hepatitis B Surface Ag Negative (Negative)
[2022-09-21 10:35] LABS: Hep A Total Ab w Rflx IgM Negative (Negative)
== END 2022-09-19 21:09 | disposition home or self-care (01) ==
LOC: NCHCN 21:08
PROVIDERS: PCP Nurse Practitioner Family; Visit Provider Nurse Practitioner Family
DX: K76.0 Fatty (change of) liver, not elsewhere classified (principal); F32.0 Major depressive disorder, single episode, mild; M54.59 Other low back pain
CPT/HCPCS: 86709; 87340

== ENCOUNTER 2022-10-16 01:08 | Outpatient (CLI) | payer MEDICARE, SELFPAY ==
--- NOTE | 2022-10-16 13:45 | DI.MRI_ITS ---
Exam(s) MR LUMBAR SPINE WO EXAM: MR LUMBAR SPINE WO CLINICAL HISTORY: CHRONIC LBP, WORSENING, M54.59. TECHNIQUE: Multiplanar multisequence MRI of the Lumbar spine was performed. COMPARISON: CR,XR XR LUMBAR SPINE COMPLETE from 08/19/[address] RENAL COLIC WO from 09/11/2022 FINDINGS: Bones: The last intervertebral disc space is designated the L5/S1 level for the numbering purpose of this examination. The vertebral body heights are well maintained. 2-3 mm retrolisthesis of L2 on L3 is noted. This appears degenerative in nature. There are degenerative endplate signal changes pres ent. There is a mild left convex curvature of the lumbar spine. The findings are most marked at the L2-L3 disc level. There is a Schmorl's node in the superior endplate of L3. Cord: The conus tip ends at the T12-L1 level. It is of normal size and signal intensity. T12-L1: No disc herniations or bulges are present. No central spinal canal or neural foraminal stenos is. L1-2: There is a mild diffuse disc bulge. No central spinal canal or neural foraminal stenosis. L2-3: There is a diffuse disc bulge. No significant central spinal canal stenosis is present. There is moderate bilateral neural foraminal stenosis. L3-4: No disc herniations or bulges are present. No central spinal canal or neural foraminal stenosis . L4-5: No disc herniations or bulges are present. There are degenerative changes of the facets. No si gnificant central spinal canal or neural foraminal stenosis is present. L5-S1: There is a mild diffuse disc bulge. There are degenerative changes of the facet joint on the left. No significant central spinal canal or neural foraminal stenosis is seen. Soft tissues: The visualized SI joints and sacrum are well maintained. The paraspinal soft tissues ar e unremarkable. IMPRESSION: 1. Multilevel degenerative changes seen throughout the lumbar spine. 2. Findings are most marked at the L2-L3 level where there is moderate bilateral neural foraminal edgardo nosis. DATA REPOSITORY:
== END 2022-10-16 01:28 ==
PROVIDERS: PCP Nurse Practitioner Family; Visit Provider Nurse Practitioner Family
DX: M51.36 Other intervertebral disc degeneration, lumbar region (principal)
CPT/HCPCS: 72148

== ENCOUNTER 2022-11-02 00:02 | Outpatient (CLI) | payer MEDICARE, SELFPAY ==
--- NOTE | 2022-11-02 12:15 | DI.MAMMO_ITS ---
Exam(s) MAMMO SCREENING EXAM: MAMMO SCREENING CLINICAL HISTORY: SCREENING, Z12.39 TECHNIQUE: Bilateral full field digital CC and MLO mammographic images were obtained with 3D tomosyn thesis and utilizing computer aided detection (CAD). COMPARISON: Available for comparison. FINDINGS: Masses/Architectural Distortion: There is a new small 4 mm nodule in the retroareolar region of the l eft breast on the CC view. Microcalcifications: No suspicious pleomorphic-type are seen. Skin Thickening/Nipple Retraction: None. IMPRESSION: 1. New small nodule in the retroareolar region of the left breast. 2. Further evaluation with spot compression views requested. Ultrasound may be indicated at that john e. BI-RADS Category 0 - Assessment Incomplete: Need additional imaging evaluation Breast Density - Category B - Scattered areas of fibroglandular density Breast density category C or D implies that the patient has dense breast tissue. Dense breast tissue is very common and is not abnormal but dense breast tissue can make it harder to find cancer on a ma mmogram. Also, dense breast tissue may increase their breast cancer risk. This information about the result of the mammogram report was provided to the patient to raise their awareness. Use this report when you speak with the patient about their risks for breast cancer, which includes their family hist ory. At that time, you may recommend for more screening tests (Ultrasound or MRI) as they might be us eful based on their risk. A negative radiographic report should not delay biopsy if a dominant or clinically suspicious mass is present. Up to ten percent of cancers are not identified on mammography. A negative report may reinforce clinical impression. Adenosis and dense breasts may obscure an underlying neoplasm. False positive reports average 6 to 10%. Patient will receive a letter notifying them of these results.
--- NOTE | 2022-11-02 13:00 | DI.DEXA_ITS ---
Exam(s) XR DEXA BONE DENSITY W/WO IRINA EXAM: XR DEXA BONE DENSITY W/WO IRINA CLINICAL HISTORY: POSTMENOPAUSAL, Z78.0 TECHNIQUE: COMPARISON: CR,XR XR LUMBAR SPINE COMPLETE from 08/19/2022 FINDINGS: Lateral Spine Image: Unremarkable. No compression deformities identified. Left hip: Total T-Score: -0.9 Total Z-Score: 0.6 T- and Z-scores: Within normal limits. There is osteopenia in the femoral neck with a T-score of -1.2 . Lumbar Spine: Total T-Score: -0.6 Total Z-Score: 1.5 T- and Z-scores: Within normal limits. IMPRESSION: No evidence of osteoporosis.
== END 2022-11-02 00:22 ==
PROVIDERS: PCP Nurse Practitioner Family; Visit Provider Nurse Practitioner Family
DX: Z78.0 Asymptomatic menopausal state (principal); Z13.820 Encounter for screening for osteoporosis
CPT/HCPCS: 77063; 77067; 77080

== ENCOUNTER 2022-11-13 14:20 | Outpatient (REF) | payer MEDICARE, SELFPAY | END 2022-11-13 14:21 | disposition home or self-care (01) | LOC: NCHCN 14:20 | PROVIDERS: PCP Nurse Practitioner Family; Visit Provider Nurse Practitioner Family | DX: Z85.038 Personal history of other malignant neoplasm of large intestine (principal) | CPT/HCPCS: 82378 ==

== ENCOUNTER 2022-11-14 01:44 | Outpatient (CLI) | payer MEDICARE, SELFPAY ==
--- NOTE | 2022-11-14 | DI.US_ITS ---
Exam(s) MG MAMMO SCREEN CALL BACK UNI US BREAST LT COMPLETE EXAM: MG MAMMO SCREEN CALL BACK UNI and U/S breast LT complete CLINICAL HISTORY: F/U MAMMO, NEW SMALL NODULE RETROAREOLAR LT BREAST. TECHNIQUE: Craniocaudal and mediolateral oblique Full Field Digital Mammography views of the left br east with Computer Aided Diagnosis followed by Tomosynthesis and left breast ultrasound. COMPARISON: Comparison is made with prior examinations. FINDINGS: Mammography/Tomosynthesis: Masses/Architectural Distortion: There is again seen a well-circumscribed nodule in the retroareolar region of the left breast. No associated microcalcifications or architectural distortion is seen. Microcalcifictions: No suspicious pleomorphic-type are seen. Skin Thickening/Nipple Retraction: None. Complete left breast US: Echotexture: Normal appearance of the glandular tissue. Shadowing: No suspicious foci. Cyst: None. Solid lesions: None seen. Ductal dilation: None. IMPRESSION: 1. No definite evidence of malignancy is noted. 2. A six-month follow-up left mammogram is recommended for re-evaluation. 3. The findings were discussed with the patient on the date of the examination. BI-RADS Category 3 - 6 month - Probably Benign Finding: Recommend follow-up imaging in 6 months Breast Density - Category B - Scattered areas of fibroglandular density Breast density Category C or D implies that the patient has dense breast tissue. Dense breast tissue can make it harder to find cancer on a mammogram. Dense breast tissue is also associated with an incr eased risk of breast cancer. This information about the result of the mammogram report was provided to the patient to raise their awareness. Use this report when you speak with the patient about their risks for breast cancer, which includes their family history. At that time, you may recommend additional screening tests (Ultrasoun d or MRI) as these tests may add significant information. A negative radiographic report should not delay biopsy if a dominant or clinically suspicious mass is present. Up to ten percent of cancers are not identified on mammography. A negative report may reinforce clinical impression. Adenosis and dense breasts may obscure an underlying neoplasm. False positive reports average 6 to 10%. Patient will receive a letter notifying them of these results.
== END 2022-11-14 02:04 ==
PROVIDERS: PCP Nurse Practitioner Family; Visit Provider Nurse Practitioner Family
DX: Z12.31 Encounter for screening mammogram for malignant neoplasm of breast (principal); R92.8 Other abnormal and inconclusive findings on diagnostic imaging of breast
CPT/HCPCS: 76642; 77063; 77067

== ENCOUNTER → 2023-05-29 02:02 | Outpatient (CLI) | payer MEDICARE, SELFPAY ==
--- NOTE | 2023-05-29 | DI.MAMMO_ITS ---
Exam(s) MG MAMMO DIAGNOSTIC UNI EXAM: MG MAMMO DIAGNOSTIC UNI CLINICAL HISTORY: ABNL MAMMO R92.8 6 MO FU TECHNIQUE: Left cc and MLO mammogram images were performed according to the usual protocol includ ing computer analysis with CAD system, tomosynthesis and C-view imaging. COMPARISON: MG MG MAMMO SCREENING from 04/01/2019 MG MG MAMMO SCREEN CALL BACK UNI from 04/20/2019 MG MG MAMMO SCREENING from 08/14/2021 US US BREAST LT COMPLETE from 11/14/2022 MG MG MAMMO SCREEN CALL BACK UNI from 11/14/2022 FINDINGS: The breast is composed of scattered fibroglandular densities, Breast Density category B. No suspicious masses or suspicious microcalcifications are seen. No skin thickening or abnormal axillary lymph nodes are seen. The previously questioned circumscribed nodule in the retroareolar region is unchanged. IMPRESSION: BI-RADS category 2, negative with benign findings. Yearly screening mammography is recommended. Breast Density - Category B, scattered fibroglandular densities. A negative radiographic report should not delay biopsy if a dominant or clinically suspicious mass is present. Up to ten percent of cancers are not identified on mammography. A negative report may reinforce clinical impression. Adenosis and dense breasts may obscure an underlying neoplasm. False positive reports average 6 to 10%. Patient will receive a letter notifying them of these results.
== END ==
PROVIDERS: PCP Nurse Practitioner Family; Visit Provider Nurse Practitioner Family
DX: Z12.31 Encounter for screening mammogram for malignant neoplasm of breast (principal); R92.8 Other abnormal and inconclusive findings on diagnostic imaging of breast
CPT/HCPCS: 77061; 77065; G0279

== ENCOUNTER 2023-06-06 16:45 | Outpatient (REF) | payer MEDICARE, SELFPAY ==
[2023-06-06 16:48] LABS: Hemoglobin A1C 6.1 % (<5.7)
== END 2023-06-06 16:46 | disposition home or self-care (01) ==
LOC: NCHCN 16:45
PROVIDERS: PCP Nurse Practitioner Family; Visit Provider Nurse Practitioner Family
DX: R73.03 Prediabetes (principal)
CPT/HCPCS: 83036

== ENCOUNTER 2023-09-23 13:14 | Emergency (ER) | payer MEDICARE, SELFPAY ==
[2023-09-23 13:48] VITALS: BP 136/95; PULSE 84; RESP 16; TEMP 36.5; O2SAT 97
--- NOTE | 2023-09-23 14:45 | RT.EKG_ITS ---
APPROVED REPORT Exam: Resting ECG Reason for Exam: Confusion Patient Location: E HR:78 bpm ECG Measurements Heart Rate 78 AXIS FL 166 P 58 QRSd 99 QRS 17 QT 433 T 39 QTc 493 Conclusion Sinus rhythm...normal P axis, V-rate 60- 99 Abnormal T, consider ischemia, anterior leads...T <-0.20mV, V2-V4
[2023-09-23 14:54] VITALS: BP 142/73; PULSE 76; RESP 14; O2SAT 98
[2023-09-23 15:29] LABS: Abs Immature Grans 0.01 10^3/uL (0.0-0.06); Absolute Basophil Count 0.02 10^3/uL (0.0-0.2); Absolute Eosinophil Count 0.18 10^3/uL (0.0-0.7); Absolute Lymphocyte Count 1.52 10^3/uL (1.2-3.4); Absolute Monocyte Count 0.48 10^3/uL (0.1-0.8); Absolute Neutrophil Count 3.59 10^3/uL (1.2-6.7); Basophils % 0.3; Eosinophils % 3.1; HCT 43.4 % (36.0-46.0); Immature Grans % 0.2; Lymphocytes % 26.2; MCH 29.1 pg (27.0-33.0); MCHC 32.3 % (32.0-36.0); MCV 90 fL (80-95); MPV 10.8 fL (8.0-11.0); Monocytes % 8.3; Neutrophils % 61.9; Platelet Count 195 10^3/uL (130-400); RBC 4.81 10^6/uL (3.93-5.22); RDW 12.7 % (11.7-14.6); RDW-SD 41.3 fL
--- NOTE | 2023-09-23 15:31 | ED.GENADUL_ITS ---
Discharge Plan Disposition Patient Disposition: Home Condition: Stable Discharge Details Clinical Impression: Dizziness of unknown etiology Primary Care Provider: Mary Barton ED Provider: Ambrosio Lira Home Meds and New Rx's Prescriptions: New meclizine 25 mg tablet 25 mg PO QID Qty: 30 0RF Continued One-A-Day Women's 50 Plus 400-20 mcg tablet 1 tab PO DAILY levothyroxine 50 mcg tablet 50 mcg PO DAILY buspirone 10 mg tablet 20 mg PO BID gabapentin 100 mg capsule 200 mg PO DAILY gabapentin 300 mg capsule 300 mg PO BID escitalopram oxalate 20 mg tablet 20 mg PO DAILY aspirin [Aspirin Low-Strength] 81 MG tablet,chewable 81 mg PO DAILY losartan [Cozaar] 50 MG tablet 50 mg PO DAILY simvastatin 40 MG tablet 40 mg PO DAILY calcium carbonate [Tums] 200 mg calcium (500 mg) Tablet,Chewable 400 - 800 mg PO PRN PRN rizatriptan [Maxalt-TRANSMISSION SYSTEM OPERATOR] 5 mg Tablet,Disintegrating 5 mg PO .UP TO TWO DAILY PRN cholecalciferol (vitamin D3) [Vitamin D3] 1,000 unit Capsule 1,000 unit PO DAILY cyclobenzaprine 10 mg tablet 10 mg PO TID PRN (Reason: muscle spasm) Qty: 20 0RF lidocaine 5 % Adhesive Patch,Medicated 1 patch topical Q24H Qty: 30 0RF Rx Instructions: apply to L knee on for 12 hours, off for 12 hrs docusate sodium [Colace] 100 mg Capsule 100 mg PO TID PRN PRNQty: 0 0RF Acetaminophen [Tylenol] 650 mg PO Q6H Qty: 1 1RF diclofenac sodium 1 % Gel 2 g topical QID Qty: 100 0RF Discharge Instructions Instructions: Meclizine (By mouth), Vertigo (ED), Dizziness (ED) Additional Instructions: You were seen in the emergency department for your dizziness of unknown cause. There was no abnormalities with your heart or electrolytes on laboratory workup, your thyroid hormone is normal. There was no stroke seen on your CT scan, no brain bleeding, no vascular anomaly in your carotid or vertebral arteries. Your EKG is benign and your cardiac workup is negative. This is likely a peripheral cause of vertigo based on your exam and it could be due to the inner ear. I recommend that you follow-up with physical therapy visits for vestibular rehab for treatment of trial and error to rule out any causes here. At the same time you can try to have your primary care provider order an MRI which will help rule out other neurologic conditions like multiple sclerosis. There was an incidental finding of a thyroid nodule that likely needs an outpatient ultrasound from your primary care provider, please follow-up with them and have them review the note to go over this in more detail with you this is a nonemergent finding as your thyroid labs were normal today. I have sent a prescription for meclizine and antidizziness medication to trial while you await further care. Please return to the ED for any slurred speech, numbness tingling, weakness to 1 side of the body, visual changes, worsening dizziness with near syncope, gait instability, chest pain palpitations. Referrals: [facility] [Provider Group] [facility] [Provider Group] [facility] [Provider Group] Mary Barton [Primary Care Provider] - HPI General Date/Time Provider Initiated Documentation: 09/23/23 14:15 . HPI Narrative: 72 year-old female presents to ED today by POV/ambulating with a chief complaint of poor historian- states she's been having dizzy spells but endorsing both vertigo that's not positional, with intermittent lightheadedness for ~2 hours per day for over 1.5 weeks. Patient also states that her cognition has gone down a level during these attacks. Quality described as generalized lightheadedness, nausea, brain fog, no radiation to active vertigo, palpitations, chest pain, pulsatile tinnitus, vision loss, numbness/tingling, hemiparesis, vomiting, black/bloody stools, syncope, shortness of breath, recent GI illness, recent URI. Patient states sometimes her gait is off but endorses both generalized unsteadiness and sometimes drifting to the R. Severity is described as unable to quantify. Palliating factors include nothing specific attempted, just goes to rest/lay down until it passes. Provoking factors include onset during work on computer, sometimes onset at rest in bed upon awakening. Events leading up to the incident/Associated Symptoms: Patient denies history of atrial fibrillation, denies clot history, denies history of CO, does endorse high cholesterol and mood disorder. Patient not anticoagulated. Related Data Home Medications Medication Instructions Recorded Confirmed aspirin 81 mg chewable tablet 81 mg PO DAILY 09/18/12 09/23/23 (Aspirin Low-Strength) losartan 50 mg tablet (Cozaar) 50 mg PO DAILY 03/26/16 09/23/23 simvastatin 40 mg tablet 40 mg PO DAILY 03/26/16 09/23/23 calcium carbonate (Tums) 400 - 800 mg PO PRN PRN 07/30/18 09/23/23 cholecalciferol (vitamin D3) 25 1,000 unit PO DAILY 07/30/18 09/23/23 mcg (1,000 unit) capsule (Vitamin D3) rizatriptan 5 mg disintegrating 5 mg PO .UP TO TWO DAILY PRN 07/30/18 09/23/23 tablet (Maxalt-TRANSMISSION SYSTEM OPERATOR) levothyroxine 50 mcg tablet 50 mcg PO DAILY 02/04/20 09/23/23 qyeahultavay-teagoinc-bzcnlpy-folic 1 tab PO DAILY 02/04/20 09/23/23 acid 400 mcg-vit K1 20 mcg tablet (One-A-Day Women's 50 Plus) docusate sodium 100 mg capsule 100 mg PO TID PRN PRN #0 caps 12/01/20 09/23/23 (Colace) lidocaine 5 % topical patch 1 patch topical Q24H #30 ea 12/01/20 09/23/23 Acetaminophen [Tylenol] 650 mg PO Q6H #1 tab 01/02/21 09/23/23 diclofenac sodium 1 % topical gel 2 g topical QID #100 grams 01/02/21 09/23/23 buspirone 10 mg tablet 20 mg PO BID 07/10/21 09/23/23 escitalopram oxalate 20 mg tablet 20 mg PO DAILY 07/10/21 09/23/23 gabapentin 100 mg capsule 200 mg PO DAILY 07/10/21 09/23/23 gabapentin 300 mg capsule 300 mg PO BID 07/10/21 09/23/23 cyclobenzaprine 10 mg tablet 10 mg PO TID PRN muscle spasm #20 08/19/22 09/23/23 tabs meclizine 25 mg tablet 25 mg PO QID dizziness #30 tabs 09/23/23 Previous Rx's Medication Instructions Recorded docusate sodium 100 mg capsule 100 mg PO TID PRN PRN #0 caps 12/01/20 (Colace) lidocaine 5 % topical patch 1 patch topical Q24H #30 ea 12/01/20 Acetaminophen [Tylenol] 650 mg PO Q6H #1 tab 01/02/21 diclofenac sodium 1 % topical gel 2 g topical QID #100 grams 01/02/21 cyclobenzaprine 10 mg tablet 10 mg PO TID PRN muscle spasm #20 08/19/22 tabs meclizine 25 mg tablet 25 mg PO QID dizziness #30 tabs 09/23/23 Allergies Allergy/AdvReac Type Severity Reaction Status Date / Time nickel [Nickel] Allergy Mild Skin Rash Unverified 09/23/23 14:58 sulfamethoxazole AdvReac Unknown Nausea Unverified 09/23/23 14:58 [From Bactrim] trimethoprim [From Bactrim] AdvReac Unknown Nausea Unverified 09/23/23 14:58 aripiprazole AdvReac Dizziness/L Verified 09/23/23 14:58 ighthead bupropion [From Wellbutrin] AdvReac CONFUSION Verified 09/23/23 14:58 General Stated Complaint: GenMedical TIFFANY: 3 Review of Systems All systems reviewed & are unremarkable except as noted in HPI and below Exam Narrative Exam Narrative: GENERAL APPEARANCE: Well-nourished, non-toxic, awake and alert, atraumatic, no acute distress. SKIN: Warm, pink, dry, intact, without rashes/lesions/ulcerations. HEAD: Normocephalic, atraumatic, normal hair distribution for gender/age. EYES: Pupils PERRLA, EOMs intact without nystagmus- does cause some dizziness, visual minaya intact, normal conjunctiva, no exudates on lids/lashes. ENT: Nares patent, no circumoral cyanosis, no facial swelling NECK: Supple, trachea midline, painless cervical ROM, no carotid bruit, no nuchal rigidity. LUNGS/CHEST: Lungs CTA bilaterally- no rhonchi/rales/wheezes diffusely, non- labored respirations, normal A/P diameter, symmetrical expansion, no chest wall deformity HEART (CV/PV): Regular rate and rhythm without murmur, no peripheral edema, no JVD, R radial pulse 2+. ABDOMEN: Soft, non-distended, no guarding, no tenderness, no peritoneal signs. MSK: Normal ROM, no swelling/deformity to bilateral UEs or LEs, moving all extremities without weakness, no cyanosis, spine midline without tenderness, normal curvature. NEURO: Mental Status AAOx4 - alert to person, place, time, events No facial droop, no forehead involvement, no dysmetria with FNF Motor: No focal weakness - strength 5/5 in bilateral UEs and LEs, proximal and distal, symmetric. Sensory: sensation intact to light touch globally. Gait normal: patient ambulated without ataxia into ED room. No active ataxia at time of eval. NIH: 0, HINTS exam negative for central pathology PSYCH: euthymic, cooperative, pleasant, appropriate speech Course Vital Signs Vital signs: Vital Signs Temperature 36.5 C 09/23/23 13:48 Pulse 84 09/23/23 13:48 Respiratory Rate 16 09/23/23 13:48 Blood Pressure 136/95 H 09/23/23 13:48 Pulse Oximetry 97 09/23/23 13:48 Temperature 36.5 C 09/23/23 13:48 Temperature Source Temporal Artery Scan 09/23/23 13:48 Pulse 76 09/23/23 14:54 Respiratory Rate 14 09/23/23 14:54 Respiratory Effort Normal, Non-Labored 09/23/23 14:54 Respiratory Depth Normal 09/23/23 14:54 Respiratory Pattern Normal 09/23/23 14:54 Blood Pressure 142/73 H 09/23/23 14:54 Blood Pressure Position Supine 09/23/23 14:54 Pulse Oximetry 98 09/23/23 14:54 Oxygen Delivery Method Room Air 09/23/23 14:54 Oxygen Flow Rate 0 09/23/23 13:48 Pain Level 8 09/23/23 13:48 Lab/Test Results Lab/Test Results: Laboratory Tests Range/Units 09/23/23 17:59 Troponin I Cancelled Medical Decision Making This dictation utilizes [id number] dictation software and may contain unedited grammatical errors. 72 y/o F presents to ED today with a chief complaint of vague dizziness, endorsing both vertiginous and lightheaded symptoms, denies palpitations, endorsing nausea without vomiting, endorsing mild cognitive changes and brain fog. Denies recent illness. Ongoing for >1.5 weeks. Patients' medical history: Depression, obesity, tricuspid regurgitation, history of hemicolectomy, hypertension, hyperlipidemia, chronic left knee issues causing ambulatory deficit, history of diplopia and headache. Family and social history: Noncontributory. Pertinent exam findings / vital signs include no dysmetria, benign cardiopulmon jefry exam, benign abdomen, nontoxic, no focal neuro deficits NIH: 0, EOM testing causing mild dizziness, no carotid bruit. Differential / pathologies of concern include TIA, CVA, complex migraine, pe ripheral vertigo, vertebral dissection, BPPV, vestibular migraine, tickborne illness, gastritis, UTI. Diagnostic studies of: -CBC, CMP, lipase, BNP, troponin, TSH, urinalysis, UDS, tick and Lyme panel, EKG, magnesium, CTA brain and neck. -EKG shows sinus rhythm at 78 bpm with P waves, narrow complex QRS with normal axis, some T wave versions in V2 V3 but not deeply inverted, ST depression in V4 5 6 lateral leads without reciprocal ST elevation, good R wave progression, normal QT QTc -CBC shows no leukocytosis, no anemia -CMP shows no major electrolyte abnormalities, -Troponin negative with reliable onset -UA is positive for nitrates, suspect a UTI with 10-20 WBCs, Cx pending - asymptomatic in elderly female- does not need immediate treatment. -UDS negative -Magnesium within normal limits -TSH WNL -Lipase WNL -CTA shows 1.1cm thyroid nodule - recommends outpatient U/S - no stroke or other abnormality of vasculature. Interventions of: -Outpatient prescription of meclizine. ED Course/Assessment/Plan: 72-year-old female presents with vague onset of both vertigo and lightheadedness, brain fog without clear viral syndrome. Has no neck stiffness or meningismus. I did discuss with her that she may need to follow-up with physical therapy for vestibular rehab. I also recommend she try to have her primary care provider schedule an outpatient MRI versus neurology referral. The patient did acknowledge her negative results and negative CT scan but her and her daughter were frustrated that we did not have an exact answer for her. I did give her a prescription for meclizine to help with dizziness and counseled on no emergent findings on significant workup. Stressed strict return criteria for any worsening dizziness, vertigo, numbness, neurologic abnormality, fever. Findings not consistent with central vertigo, stroke, ACS, encephalopathy, hyperthyroid, meningismus. Disposition of dizziness of unknown etiology. Patient verbalized understanding of the plan and return to ED criteria and engaged in shared decision making. Medical Records Medical records reviewed: Yes I reviewed the patient's medical records. Imaging Data Radiologic Study: Attestation: I personally reviewed and interpreted this imaging study as follows: Imaging: CT Scan Radiologist's impression: EXAM: CT BRAIN NECK CTA CLINICAL HISTORY: vertigo, one week, subacute confusion. TECHNIQUE: Imaging Protocol: Axial CT angiography was performed with multi- slice acquisition and multi-planar and/or 3D reconstructions. CONTRAST MATERIAL: Intravenous: Omnipaque 350 contrast volume:85 mL COMPARISON: CT HEAD WITHOUT CONTRAST from 08/03/2016 FINDINGS: CT Head W/O and W: Ventricles and Extra axial spaces: Normal in size and morphology for the patie nt's age. Hemorrhage: None. Cerebral parenchyma: No acute mass effect. There are areas of decreased attenuation in the white matter most consistent with chronic microvascular ischemic disease. Midline shift: None. Brainstem/Cerebellum: Normal. Calvarium: Normal. Visualized Paranasal sinuses/Mastoids: Clear. Soft Tissues: Unremarkable. Enhancement: Unremarkable. CTA Neck W: Common Carotid: Right: No dissection, occlusion or significant stenosis. Left: No dissection, occlusion or significant stenosis. External Carotid: Right: No occlusion or significant stenosis. Left: No occlusion or significant stenosis. Internal Carotid: Right: No dissection, occlusion or significant stenosis. Left: No dissection, occlusion or significant stenosis. Vertebral Artery: Right: No dissection, occlusion or significant stenosis. Left: No dissection, occlusion or significant stenosis. Lung Apices: Normal. Bones: Within normal limits for the patient's age. There is mild reversal of the normal cervical lordosis. Soft Tissues: Normal. Thyroid gland: There looks to be a 1.1 cm nodule in the inferior pole of the left lobe of the thyroid gland. Nonemergent thyroid ultrasound should be considered for further evaluation. CTA Brain W: Internal Carotid Arteries: No aneurysm or occlusion. No significant stenosis. Anterior Cerebral Arteries: Right: No aneurysm, occlusion or significant stenosis. Left: No aneurysm, occlusion or significant stenosis. Middle Cerebral Arteries: Right: No aneurysm, occlusion or significant stenosis. Left: No aneurysm, occlusion or significant stenosis. Posterior Cerebral Arteries: Right: No aneurysm, occlusion or significant stenosis. Left: No aneurysm, occlusion or significant stenosis. Vertebral Arteries: Right: No aneurysm, occlusion or significant stenosis. Left: No aneurysm, occlusion or significant stenosis. Basilar Artery: No aneurysm, occlusion or significant stenosis. IMPRESSION: 1. No large vessel occlusion or significant stenosis on the CT angiography of the head. 2. No acute intracranial process. 3. No occlusion or significant stenosis on the CT angiography of the neck. Unexpected findings Lab Data Lab results reviewed: Yes I reviewed the patient's lab results. Labs: 09/23/23 15:35 Urine - Reflex from Ua Urine Culture - Pending Laboratory Tests Range/Units 09/23/23 09/23/23 09/23/23 15:15 15:35 17:59 WBC (4.4-10.8) 10^3/uL 5.80 RBC (3.93-5.22) 10^6/uL 4.81 Hgb (11.2-15.7) g/dL 14.0 Hct (36.0-46.0) % 43.4 MCV (80-95) fL 90 MCH (27.0-33.0) pg 29.1 MCHC (32.0-36.0) % 32.3 RDW (11.7-14.6) % 12.7 Plt Count (130-400) 10^3/uL 195 MPV (8.0-11.0) fL 10.8 Immature Gran % 0.2 Neutrophils % 61.9 Lymphocytes % 26.2 Monocytes % 8.3 Eosinophils % 3.1 Basophils % 0.3 Nucleated RBC % (0.0-0.3) % 0.0 Absolute Neutrophils (1.2-6.7) 10^3/uL 3.59 Absolute Lymphocytes (1.2-3.4) 10^3/uL 1.52 Absolute Monocytes (0.1-0.8) 10^3/uL 0.48 Absolute Eosinophils (0.0-0.7) 10^3/uL 0.18 Absolute Basophils (0.0-0.2) 10^3/uL 0.02 Sodium (136-145) mmol/L 142 Potassium (3.5-5.1) mmol/L 3.7 Chloride (98-107) mmol/L 102 Carbon Dioxide (21.0-32.0) mmol/L 30.9 Anion Gap (3-11) mmol/L 9.1 BUN (7-18) mg/dL 17 Creatinine (0.55-1.02) mg/dL 0.9 Est GFR (CKD-EPI 2020) (mL/min/1.73m2) 68.77 Glucose (74-106) mg/dL 124 H Calcium (8.5-10.1) mg/dL 9.0 Magnesium (1.8-2.4) mg/dL 2.1 Total Bilirubin (0.2-1.0) mg/dL 0.5 AST (15-37) U/L 16 ALT (14-59) U/L 33 Alkaline Phosphatase (46-116) U/L 86 Troponin I (< or =60) ng/L < 50 Cancelled NT-Pro-B Natriuret Pep (<300) pg/mL 36 Total Protein (6.4-8.2) g/dL 7.3 Albumin (3.4-5.0) g/dL 3.9 Lipase (16-77) U/L 29 TSH (0.36-3.74) uIU/mL 2.63 Urine Color (Yellow) Yellow Urine Clarity (Clear) Clear Urine pH (5-8) 5.5 Ur Specific [place] (1.005-1.025) >= 1.030 H Urine Protein (Neg-Trace) mg/dL Negative Urine Ketones (Negative) mg/dL Negative Urine Blood (Negative) Trace-intact H Urine Nitrite (Negative) Positive H Urine Bilirubin (Negative) Negative Urine Urobilinogen (Up to 0.2) mg/dL 0.2 Ur Leukocyte Esterase (Negative) Trace H Urine RBC (0-2) HPF 0-2 Urine WBC (0-5) HPF 10-20 H Ur Epithelial Cells (Negative) HPF Rare Urine Crystals (Negative) HPF Negative Urine Bacteria (Negative) HPF Moderate Urine Casts (Negative) LPF Negative Urine Mucus (Negative) Negative Ur Culture Indicated? Yes Urine Glucose (Negative) mg/dL Negative Urine Opiates Screen (Negative) Negative Urine Methadone Screen (Negative) Negative Ur Barbiturates Screen (Negative) Negative Ur Tricyclics Screen (Negative) Negative Ur Amphetamines Screen (Negative) Negative U Benzodiazepines Scrn (Negative) Negative Urine Cocaine Screen (Negative) Negative Ur THC Screen (Negative) Negative Quality:SDOH Health Related Social Needs: No Data to Display PFSH All Active Problems Dizziness of unknown etiology (Acute) Hypertension (Chronic) Hyperlipemia (Acute) Effusion, left knee (Acute) Intractable pain (Acute) Ambulatory dysfunction (Acute) Obesity, morbid, BMI 40.0-49.9 (Chronic) Osteoarthritis of left knee (Chronic) DEPO INJECTION: 05/16/21 Inability to ambulate due to left knee (Acute) Painful total knee replacement, right (Acute) Arthrofibrosis of total knee arthroplasty (Acute) Weakness (Acute) Unilateral primary osteoarthritis, left knee (Acute) Depo-Medrol injection: 11/03/2020, 05/12/2020 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 (Acute) Status post cataract extraction and insertion of intraocular lens of right eye (Chronic 08/18/18) Diplopia (Acute) Head ache (Acute) Status post cataract extraction and insertion of intraocular lens of left eye (Chronic 08/04/18) Medical History Blood glucose elevated Cortical cataract of left eye Depression Enlarged liver History of colon cancer Nuclear sclerotic cataract of left eye Obesity Posterior subcapsular age-related cataract of left eye Tricuspid regurgitation Surgical History History of hemicolectomy Social History Smoking/Tobacco Use Status: Former Tobacco Use Smoking risk assessment performed?: Yes Alcohol Intake: never Drug use: Occasionally Substance use type: marijuana Details: marijuana last night Housing: house Do you feel safe at home: Yes Do you feel safe in your relationship?: Yes
--- NOTE | 2023-09-23 15:45 | DI.CT_ITS ---
Exam(s) CT BRAIN NECK CTA EXAM: CT BRAIN NECK CTA CLINICAL HISTORY: vertigo, one week, subacute confusion. TECHNIQUE: Imaging Protocol: Axial CT angiography was performed with multi-slice acquisition and mu lti-planar and/or 3D reconstructions. CONTRAST MATERIAL: Intravenous: Omnipaque 350 contrast volume:85 mL COMPARISON: CT HEAD WITHOUT CONTRAST from 08/03/2016 FINDINGS: CT Head W/O and W: Ventricles and Extra axial spaces: Normal in size and morphology for the patient's age. Hemorrhage: None. Cerebral parenchyma: No acute mass effect. There are areas of decreased attenuation in the white mat ter most consistent with chronic microvascular ischemic disease. Midline shift: None. Brainstem/Cerebellum: Normal. Calvarium: Normal. Visualized Paranasal sinuses/Mastoids: Clear. Soft Tissues: Unremarkable. Enhancement: Unremarkable. CTA Neck W: Common Carotid: Right: No dissection, occlusion or significant stenosis. Left: No dissection, occlusion or significant stenosis. External Carotid: Right: No occlusion or significant stenosis. Left: No occlusion or significant stenosis. Internal Carotid: Right: No dissection, occlusion or significant stenosis. Left: No dissection, occlusion or significant stenosis. Vertebral Artery: Right: No dissection, occlusion or significant stenosis. Left: No dissection, occlusion or significant stenosis. Lung Apices: Normal. Bones: Within normal limits for the patient's age. There is mild reversal of the normal cervical lord osis. Soft Tissues: Normal. Thyroid gland: There looks to be a 1.1 cm nodule in the inferior pole of the left lobe of the thyroid gland. Nonemergent thyroid ultrasound should be considered for further evaluation. CTA Brain W: Internal Carotid Arteries: No aneurysm or occlusion. No significant stenosis. Anterior Cerebral Arteries: Right: No aneurysm, occlusion or significant stenosis. Left: No aneurysm, occlusion or significant stenosis. Middle Cerebral Arteries: Right: No aneurysm, occlusion or significant stenosis. Left: No aneurysm, occlusion or significant stenosis. Posterior Cerebral Arteries: Right: No aneurysm, occlusion or significant stenosis. Left: No aneurysm, occlusion or significant stenosis. Vertebral Arteries: Right: No aneurysm, occlusion or significant stenosis. Left: No aneurysm, occlusion or significant stenosis. Basilar Artery: No aneurysm, occlusion or significant stenosis. IMPRESSION: 1. No large vessel occlusion or significant stenosis on the CT angiography of the head. 2. No acute intracranial process. 3. No occlusion or significant stenosis on the CT angiography of the neck. Unexpected findings RADIATION DOSE DELIVERED: 1,617mGy.cm Total DLP DATA REPOSITORY: All CT scans at this facility are submitted to the National Radiology Data Registry (NRDR) Dose Index Registry (DIR) with the [employer] (ACR). RADIATION OPTIMIZATION: All CT scans at this facility use at least one of these dose optimization te chniques: automated exposure control; mA and/or kV adjustment per patient size (includes targeted exa ms where dose is matched to clinical indication); or iterative reconstruction.
[2023-09-23 15:49] LABS: Bilirubin Negative (Negative); Blood Trace-intact (Negative); Clarity Clear (Clear); Glucose Negative (Negative); Ketones Negative (Negative); Leukocyte Esterase Trace (Negative); Nitrite Positive (Negative); Specific Gravity >= 1.030 (1.005-1.025); Urobilinogen 0.2 mg/dL (Up to 0.2); pH 5.5 (5-8)
[2023-09-23 15:50] LABS: ALT 33 U/L (14-59); AST 16 U/L (15-37); Albumin 3.9 g/dL (3.4-5.0); Alkaline Phosphatase 86 U/L (46-116); Anion Gap 9.1 mmol/L (3-11); BUN 17 mg/dL (7-18); Bilirubin, Total 0.5 mg/dL (0.2-1.0); CO2 30.9 mmol/L (21.0-32.0); CREATININE 0.9 mg/dL (0.55-1.02); Chloride 102 mmol/L (98-107); Estimated GFR 68.77 (mL/min/1.73m2); Glucose 124 mg/dL (74-106); Magnesium 2.1 mg/dL (1.8-2.4); Potassium 3.7 mmol/L (3.5-5.1); Sodium 142 mmol/L (136-145); Total Protein 7.3 g/dL (6.4-8.2); Troponin I < 50 ng/L (< or =60)
[2023-09-23] MEDS: Normal Saline - Diluent 50 ML VIAL IJ (15:57)
[2023-09-23 15:59] LABS: *AMPHETAMINES SCREEN URINE Negative (Negative); *BARBITURATES SCREEN URINE Negative (Negative); *BENZODIAZEPINES SCREEN URINE Negative (Negative); Cannabinoids THC Negative (Negative); Cocaine Screen,Urine Negative (Negative); METHADONE URINE SCREEN Negative (Negative); OPIATES URINE SCREEN Negative (Negative)
[2023-09-23] MEDS: Omnipaque 350 MG/ML 100 ML BTL IJ (15:59)
[2023-09-23 16:00] LABS: Tricyclic Antidepressants Negative (Negative)
[2023-09-23 16:02] LABS: Bacteria Moderate HPF (Negative); C & S Indicated? Yes; Casts Negative LPF (Negative); Crystals Negative HPF (Negative); Epithelial Cells Rare HPF (Negative); Mucus Negative (Negative); RBC 0-2 HPF (0-2)
[2023-09-23] MEDS: Normal Saline 1,000 ML 1000 ML IV (16:46)
[2023-09-23 18:03] LABS: Lipase 29 U/L (16-77); NT-proBNP 36 pg/mL (<300); TSH (W/Ref FT4) 2.63 uIU/mL (0.36-3.74)
[2023-09-23 18:30] VITALS: BP 145/88; PULSE 80; RESP 14; O2SAT 99
[2023-09-25 09:06] LABS: Lyme Ab w Rflx to Lyme Confirm Negative (Negative)
[2023-09-27 00:27] LABS: Anaplasma phagocytophilum Negative (Negative); B. miyamotoi PCR Negative (Negative); Babesia divergens/MO-1 Negative (Negative); Babesia duncani Negative (Negative); Babesia microti Negative (Negative); Ehrlichia chaffeensis Negative (Negative); Ehrlichia ewingii/canis Negative (Negative); Ehrlichia muris eauclairensis Negative (Negative)
== END 2023-09-23 19:17 | disposition home or self-care (01) ==
PROVIDERS: Registered Nurse Emergency; Emergency Provider Physician Assistant; PCP Nurse Practitioner Family
DX: R42 Dizziness and giddiness (principal); I10 Essential (primary) hypertension; E78.5 Hyperlipidemia, unspecified; Z87.891 Personal history of nicotine dependence
CPT/HCPCS: 70496; 70498; 80053; 80307; 83690; 87077; 87798; 93005; 96360; 96361; 99285; 81003; 81015; 83735; 83880; 84443; 84484; 85025; 86618; 87086; 87186; 93010; 99284; J3490

== ENCOUNTER 2023-09-26 14:37 | Outpatient (REF) | payer MEDICARE, SELFPAY ==
[2023-09-26 15:43] LABS: ALT 34 U/L (14-59); AST 25 U/L (15-37); Albumin 3.6 g/dL (3.4-5.0); Alkaline Phosphatase 77 U/L (46-116); Anion Gap 9.5 mmol/L (3-11); BUN 20 mg/dL (7-18); Bilirubin, Total 0.5 mg/dL (0.2-1.0); CO2 28.5 mmol/L (21.0-32.0); CREATININE 0.9 mg/dL (0.55-1.02); Calcium 9.4 mg/dL (8.5-10.1); Chloride 104 mmol/L (98-107); Creatine Kinase 230 U/L (26-192); Estimated GFR 68.77 (mL/min/1.73m2); Glucose 125 mg/dL (74-106); Sodium 142 mmol/L (136-145); TSH 3.47 uIU/Ml (0.36-3.74); Total Protein 7.1 g/dL (6.4-8.2)
[2023-09-26 16:00] LABS: HDL Cholesterol 74 mg/dL (40-60); LDL CHOLESTEROL 74 mg/dL (<100)
== END 2023-09-26 14:38 | disposition home or self-care (01) ==
LOC: NCHCN 14:37
PROVIDERS: PCP Nurse Practitioner Family; Visit Provider Nurse Practitioner Family
DX: E78.5 Hyperlipidemia, unspecified (principal); I10 Essential (primary) hypertension; E03.9 Hypothyroidism, unspecified
CPT/HCPCS: 80053; 82550; 83721; 83718; 84439; 84443

== ENCOUNTER → 2023-10-03 00:25 | Outpatient (CLI) | payer MEDICARE, SELFPAY ==
--- NOTE | 2023-10-03 11:53 | DI.US_ITS ---
Exam(s) US THYROID EXAM: US THYROID CLINICAL HISTORY: E04.1 Nodule, HX Hypothyroid, 1.[address] TECHNIQUE: Ultrasound thyroid performed using standard protocol. COMPARISON: CT CT BRAIN NECK CTA from 09/23/2023 FINDINGS: The patient has a multinodular thyroid gland. ISTHMUS: 2 mm RIGHT LOBE: Size: 3.1 x 1.3 x 1.1 cm Echogenicity: Normal. Vascularity: Normal. Nodules: There is a 1.1 x 1.1 x 0.9 cm solid hyperechoic nodule in the midpole of the right lobe. It is taller rather than wide. No echogenic foci are seen. It is consistent with a TI rads level 4 no dule. Due to its size, follow-up is recommended. There are several smaller nodules in the right lob e of the thyroid gland, but they do not require follow-up. LEFT LOBE: Size: 3.3 x 1.3 x 1.5 cm Echogenicity: Normal. Vascularity: Normal. Nodules: Multiple thyroid nodules are seen. In the midpole there is a 1.2 x 1.0 x 1.0 cm solid isoec hoic nodule. No echogenic foci are seen. It is consistent with a TI rads level 3 nodule. Due to it s size, no follow-up is recommended. There is also a 1.1 x 0.6 x 0.7 cm solid hyperechoic nodule in the upper pole. It is somewhat ill-defined. No echogenic foci are seen. The findings are consisten t with a TI rads level 3 nodule. Due to its size, no follow-up is recommended. OTHER FINDINGS: None. IMPRESSION: Multinodular thyroid gland as described above. DATA REPOSITORY:
== END ==
PROVIDERS: PCP Nurse Practitioner Family; Visit Provider Nurse Practitioner Family
DX: E04.1 Nontoxic single thyroid nodule (principal)
CPT/HCPCS: 76536

== ENCOUNTER 2024-01-07 02:43 | Outpatient (CLI) | payer MEDICARE, SELFPAY ==
--- OUTSIDE RECORDS SUMMARY | 2024-01-07 02:45 | XMS_ITS | Encounter Summary ---
Author Organization [facility] [place] [address] Care Team Providers Care Manuscripts Curator Name Role Phone Mary Barton APRN Primary Care Provider [phone] Encounter Details Date Type Department Care Team (Late st Contact Info) Description 08/19/2023 Notes [place] [id number] Sr Joshua Pena Social History Tobacco Use Types Packs/Day Years Used Date Smoking Tobacco: Former Cigarettes 1 20 0 08/05/1974 - 08/05/1994 Smokeless Tobacco: Never Alcohol Use Standard Drinks/Week Comments No 0 (1 standard drink = 0.6 oz pur e alcohol) rare Sex and Gender Information Value Date Recorded Sex Assigned at Not on file Gender Identity Not on file Sexual Orientation Not on file documented as of this encounter Progress Notes * Sr Joshua Pnea - 08/19/2023 11:59 PM EDT [employer] ATTUNE Revision [id number]-[id number]: Multi-Center Clinical Evaluation of the ATTUNE Revision System In Revision Total Knee Arthroplasty Min 2 Year Visit (700d to 760d 669d to 1033d) TASKS AT VISIT Coordinator X-Rays 3 Views Patient (Paper, in Binder) Post-Op Knee Society 2011 - Patient Post-Op PKIP Pain Severity and Location KOOS-PS EQ-5D-5L Physician Knee Society 2011 - Physician DATE OF EVALUATION: 08/19/2023 Affected Side: right How was the evaluation performed? Clinic Visit Did subject report any new AEs or any updates to an existing AE at this evaluation? No Have any components of the attune revision implant (study knee) been removed/exchanged/revised? No Based on Version 1.0 [id number] - Method of Data Collection documented in this encounter Plan of Treatment Upcoming Encounters Date Type Department Care Team (Late st Contact Info) Description 02/17/2024 1:00 PM EDT Office Visit [place] [address] Julian Kate MD [facility] [place] [address] documented as of this encounter Visit Diagnoses Not on filedocumented in this encounter Care Teams Manuscripts Curator Relationship Specialty Start Date End Date Mary Barton APRN PCP - General Family Medicine 11/15/20 documented as of this encounter
--- OUTSIDE RECORDS SUMMARY | 2024-01-07 02:45 | XMS_ITS | Clinical Summary ---
Author Organization [facility] Address [facility] [place] [address] Care Team Providers Care School Crossing Guard Supervisor Name Role Phone Mary Barton KALLI Primary Care Provider [phone] Allergies Active Allergy Reactions Criticality Noted Date Comments Aripiprazole 11/03/2020 Bupropion Other (See Comments) 11/03/2020 Lisinopril 02/06/2021 cough Nickel Low 11/03/2020 Sulfamethoxazole High 11/03/2020 Sulfamethoxazole-Trimethop rim Other (See Comments) High 12/19/2020 Severe chest pain Trimethoprim High 11/03/2020 Unclassified Drug Rash Medium 08/05/2014 NICKEL Sertraline 02/06/2021 Medications Medication Sig Dispensed Refills Start Date End Date Status cholecalciferol, Vitamin D3, 400 unit Tablet Take 400 Units by mouth daily. Active losartan (COZAAR) 50 mg Tablet Take 50 mg by mouth daily. Active simvastatin (ZOCOR) 20 mg Tablet Take 20 mg by mouth nightly. Active busPIRone (Buspar) 10 mg Tablet Take 20 mg by mouth 2 times daily. 11/03/2020 Active calcium carbonate (Tums) 200 mg calcium (500 mg) Tablet, Chewable As needed 07/30/2018 Active escitalopram (Lexapro) 20 mg Tablet Daily. Active Propylene Glycol-Glycerin 1-0.3 % Drops Artificial Tears (glycerin-peg) 1 %-0.3 % eye drops Active Levothyroxine (Tirosint) 50 mcg Capsule Take 50 mcg by mouth Daily. Active lidocaine (Lidoderm) 5% Adhesive Patch, Medicated Q24H 12/01/2020 Active gabapentin (Neurontin) 100 mg Capsule 200 mg. 200 mg BID and 300 mg QHS 01/16/2021 Active fluticasone propionate (Flonase) 50 mcg/actuation [place], Suspension SHAKE LIQUID AND USE 2 SPRAYS IN EACH NOSTRIL DAILY 09/13/2020 Active polyethylene glycoL (Miralax) 17 gram Powder in Packet Take 17 g by mouth daily. Active meloxicam (MOBIC) 15 mg Tablet You can take naproxen OR meloxicam OR ibuprofen/motrin. Take daily as needed 30 tablet 12 02/18/2021 Active Additional Information Patient not taking.Reported on 08/19/2023 acetaminophen (Tylenol) 500 mg Tablet Take 2 tablets by mouth every 8 hours. 0 02/18/2021 Active Rizatriptan (MAXALT-CYTOGENETICIST) 5 mg Tablet, Rapid Dissolve Prn for migraines 01/02/2021 Active aspirin 81 mg Tablet, Chewable Take 81 mg by mouth daily. 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 Encounters Date Type Department Care Team Description 11/04/2023 Transcribe Orders eD Incoming Referrals [phone] Mary Barton, SQL SSRS SSIS DEVELOPER Nontoxic single thyroid nodule from Last 3 Months Family History Medical History Relation Comments Glaucoma Neg Hx Retinal Detachment Neg Hx Strabismus Neg Hx Social History Tobacco Use Types Packs/Day Years Used Date Smoking Tobacco: Former Cigarettes 1 20 0 08/05/1974 - 08/05/1994 Smokeless Tobacco: Never Alcohol Use Standard Drinks/Week Comments No 0 (1 standard drink = 0.6 oz pur e alcohol) rare Sex and Gender Information Value Date Recorded Sex Assigned at Not on file Gender Identity Not on file Sexual Orientation Not on file Last Filed Vital Signs Vital Sign Reading Time Taken Comments Blood Pressure 114/50 02/19/2022 11:13 AM EDT Pulse 79 02/19/2022 11:13 AM EDT Temperature 36.7 ??C (98.1 ??F) 02/18/2021 7:57 AM ED T Respiratory Rate 18 02/18/2021 7:57 AM EDT Oxygen Saturation 93% 02/18/2021 7:57 AM EDT Inhaled Oxygen Concentration - - Weight 107 kg (236 lb) 08/19/2023 1:17 PM EDT Height 157.5 cm (5' 2) 08/19/2023 1:17 PM EDT Body Mass Index 43.16 08/19/2023 1:17 PM EDT Plan of Treatment Upcoming Encounters Date Type Department Care Team (Late st Contact Info) Description 02/17/2024 1:00 PM EDT Office [place] [address] Julian Kate MD [facility] [place] [address] Health Maintenance Due Date Last Done Comments CT Colonography 1950 FIT DNA 1950 FIT 1950 Sigmoidoscopy 1950 Hepatitis C Screening 1970 Tdap adult 11/11/1971 Tetanus vaccine 11/11/1971 Breast Cancer Share Decision Needed 1992 Breast Cancer screening 1992 Zoster vaccine (1 of 2) 2002 Advance Directive 11/11/2007 Bone Density Scan 2017 Pneumoccocal Vaccine: 65+ (1 of 1 - PCV) 2017 Colonoscopy 08/06/2019 08/05/2014, 07/25, 08/05/2014 Colorectal Cancer Screening 08/06/2019 Covid-19 Vaccine ( - 2022-2 4 season) 2023 Influenza (Flu) vaccine (1 o f 1 - Influenza standard series) 01/26/2024 Sigmoidoscopy (10 year) with FIT yearly 08/05/2024 08/05/2014, 08/05/2014, 08/05/2014 Diabetes Screening (HgbA1C o r Glucose) Discontinued 02/18/2021, 02/06/2021, 02/06/2021 Medical Devices Implanted Type Area Firer Retort Device Identifier Shelf Expiration Date Model / Serial / Lot Cement Bone High Viscosity 40gm Single Dose Pmma Smartset ([id number]) - [id number] Implanted:Qty: 3 on 02/17/2021 by Juan Marie MD at [facility] Right: Knee [employer] - MADAY ABHAY [id number] 05/26/2022 3092-040 / / [id number] Insert Tibial 12mm Sz 3 Fix Poly Attune ([id number]) (Autoreq) - [id number] Implanted:Qty: 1 on 02/17/2021 by Juan Marie MD at [facility] Right: Knee [employer] - [employer] [id number] 06/26/2021 [id number] / / [id number] Barrier Adhesion 5x6in Amdominal-Pelvic Bioresorbable ([id number]) - [id number] Implanted:Qty: 1 on 02/17/2021 by Juan Marie MD at [facility] Right: Knee [employer] - [employer] US [id number] 05/07/2023 4301-02 / / [id number] Stem Ext Knee 70z41he Nakul ([id number]) (Autoreq) - [id number] Implanted:Qty: 1 on 02/17/2021 by Juan Marie MD at [facility] Right: Knee [employer] Aug[employer] - MAD[employer]HAY [id number] 01/24/2029 1512-14-080 / / [id number] Comp Femoral Knee Sz 3 Right Nakul Cr ([id number]) (Autoreq) - [id number] Implanted:Qty: 1 on 02/17/2021 by Juan Marie MD at [facility] Right: Knee [employer] - [employer] [id number] 09/23/2030 [id number] / / [id number] Augment Fem Knee 8mm Size 3 Dist Attune ([id number]) (Autoreq) - [id number] Implanted:Qty: 1 on 02/17/2021 by Juan Marie MD at [facility] Right: Knee [employer] - [employer]HAY [id number] 01/25/2028 [id number] / / [id number] Augment Fem Knee 8mm Size 3 Dist Attune ([id number]) (Autoreq) - [id number] Implanted:Qty: 1 on 02/17/2021 by Juan Marie MD at [facility] Right: Knee [employer] - [employer] [id number] 01/25/2028 [id number] / / [id number] Adapter Stem Ext Knee 6mm ([id number]) (Autoreq) - [id number] Implanted:Qty: 1 on 02/17/2021 by Juan Marie MD at [facility] Right: Knee [employer] [facility] - [employer] [id number] 12/25/2027 [id number] / / [id number] Stem Ext Knee 45w508sw Prsft Str ([id number]) (Autoreq) - [id number] Implanted:Qty: 1 on 02/17/2021 by Juan Marie MD at [facility] Right: Knee [employer] [facility] - [employer]AY [id number] 07/24/2030 1513-12-110 / / [id number] Comp Patellar Knee 32mm Nakul Medialized Domed Poly ([id number]) (Autoreq) - [id number] Implanted:Qty: 1 on 02/17/2021 by Juan Marie MD at [facility] Right: Knee [employer] [facility] - [employer]AY [id number] 03/26/2025 1518-20-032 / / [id number] Attune Knee System Revision Tibial Base, Fixed Bearing, Size 2 Cemented Implanted:Qty: 1 on 02/17/2021 by Juan Marie MD at [facility] Right: Knee 05/26/2030 1506-40-002 / / [id number] Procedures Procedure Name Priority Date/Time Associated Diagnosis Comments HC VENIPUNCTURE Routine 02/18/2021 1:54 AM EDT COLONOSCOPY Routine 08/05/2014 10:45 AM EDT from Last 3 Months or Most Recently Relevant to Health Maintenance Results * (ABNORMAL) Basic Metabolic Panel (non-fasting) (02/18/2021 1:54 AM EDT) Glucose 128 65 - 199 mg/dL [facility] Comment:Diabetes: >=200 mg/d L plus symptoms Blood Urea Nitrogen 16 8 - 18 mg/dL [facility] Creatinine 0.83 0.70 - 1.20 mg/dL [facility] Sodium 138 135 - 145 mmol/L [facility] Potassium 4.1 3.5 - 5.0 mmol/L [facility] Comment: Please note: ??Patients with WBC >100,000 may have falsely elevated Potassium levels. ??For accurate Potassium quantification in these patients send serum separator tube (gold top) for subsequent determinations. ??Contact the Clinical Chemistry Laboratory if there are any questions. Chloride 106 98 - 107 mmol/L [facility] Carbon Dioxide 25 22 - 31 mmol/L [facility] Anion Gap 7 5 - 15 mmol/L [facility] Calcium 8.3(L) 8.5 - 10.5 mg/dL [facility] Est Glomerular Filtration Rate 72 >=60 mL/min/1. 73 m?? [facility] Comment: This patient? s estimated glomerular filtration rate (eGFR) is between 72 mL/min/1.73 m2 (patients with less muscle mass) and 84 mL/min/1.73 m2 (patients with more muscle mass) as determined by the CKD-EPI equation. Assessment of eGFR is not appropriate when creatinine concentrations are rapidly changing. For clinical decisions where creatinine clearance will affect therapy, a 24-hour urine creatinine clearance may be advised. Assignment of CKD stage 1 - 5 for patients with an eGFR near the transition point between stages may be based on clinical assessment of muscle mass and symptoms in addition to eGFR. Blood 02/18/2021 1:54 AM EDT 02/18/2021 2:17 AM EDT Narrative Resulting Agency Comment Spec In Lab Juan Marie MD CHEMISTRY ORDERABLE S [facility] [place] [address] * COLONOSCOPY (08/05/2014 10:45 AM EDT) COLONOSCOPY [facility] Endoscopy Patient Name: Pari Lackey ? Procedure Date: 08/05/2014 10:45 AM ? [facility]: [id number] ? Date of : 1950 ? Age: 63 ? Order #: [id number] ? Procedure: ? Colonoscopy Indications: ? H/o colon cancer , now with ? change in bowels Providers: ? Iggy Lopez MD, Tulio Weir ? JAMAAL Paul, Kylee Conner, ? Bag Turner Referring MD: ?Jamila Oglesby MD Medicines: ? Midazolam 4 mg IV, Fentanyl 250 ? micrograms IV Complications: ? No immediate complications. Procedure: ? The procedure, indications, benefits, ? risks and alternatives were explained ? to the patient. Specifically ? discussed were potential ? complications including, but not ? limited to, bleeding, perforation, ? infection, missing a cancer, and ? adverse medication reactions. The ? patient was placed in the left ? lateral decubitus position, and a ? digital rectal exam was performed. ? The Colonoscope was inserted in the ? anus and under direct visualization, ? advanced to the terminal ileum. ? Careful inspection was made as the ? colonoscope was withdrawn. The ? colonoscopy was performed without ? difficulty. The patient tolerated the ? procedure well. The quality of the ? bowel preparation was excellent. ? Findings: ? S/p LAR with a normal non strictured anastomosis at ? 15 cm ? Multiple small and large-mouthed diverticula were ? found in the sigmoid colon and in the descending ? colon. ? Internal hemorrhoids were found during endoscopy. The ? hemorrhoids were medium-sized. The rectum was small ? and poorly compliant and retroflexion could not be ? performed ? Two sessile polyps were found in the transverse colon ? and in the ascending colon. The polyps were 2 mm in ? size. These polyps were removed with a cold biopsy ? forceps. Resection and retrieval were complete. ? Impression: ?- Diverticulosis in the sigmoid colon ? and in the descending colon. ? - Internal hemorrhoids. ? - No specimens collected. Recommendation: ?- Await pathology results. ? - Repeat colonoscopy in 5 years for ? surveillance. ? _ Iggy Lopez MD 08/05/2014 11:36 AM This report has been signed electronically. Number of Addenda: 0 Note Initiated On: 08/05/2014 10:45 AM PROVATION 08/05/2014 10:4 5 AM EDT Jamila Oglesby SQL SSRS SSIS DEVELOPER GENERAL SURGICAL ORD ERABLES PROVATION from Last 3 Months or Most Recently Relevant to Health Maintenance Advance Directives Documents on File Type Date Recorded Patient Delicatessen Slicer Expl anation Personal Delicatessen Slicer 12/19/2020 1:20 PM * Attempt Cardiopulmonary Resuscitation - Inpatient (Latest Code Status on File) Date Activated Date Inactivated Comments 02/17/2021 2:59 PM 02/18/2021 5:05 PM Question Answer Comments Code Status decision made by: Patient Care Teams School Crossing Guard Supervisor Relationship Specialty Start Date End Date Mary Barton APRN PCP - General Family Medicine 11/15/20
--- OUTSIDE RECORDS SUMMARY | 2024-01-07 02:45 | XMS_ITS | Encounter Summary ---
Author Organization [facility] Address [address] [place] [address] Care Team Providers Care Hoisting Engineer Name Role Phone Alisa Ugarte MD Primary Care Provider [phone] Encounter Details Date Type Department Care Team (Late st Contact Info) Description 01/19/2020 Lab Requisition [facility] Pathology & Laboratory Medicine - [address] [address] Nazario Monet MD [address] [place] [phone] Encounter for screening for malignant neoplasm of colon; Personal history of colonic polyps Social History Tobacco Use Types Packs/Day Years Used Date Smoking Tobacco: Never Assessed Sex and Gender Information Value Date Recorded Sex Assigned at Not on file Gender Identity Not on file Sexual Orientation Not on file documented as of this encounter Plan of Treatment Not on file documented as of this encounter Procedures Procedure Name Priority Date/Time Associated Diagnosis Comments SURGICAL PATHOLOGY Today 01/18/2020 14 :25 EDT Encounter for screening for malignant neoplasm of colon Personal history of colonic polyps documented in this encounter Results * SURGICAL PATHOLOGY (01/18/2020 14:25 EDT) Final Diagnosis A. COLON, PROXIMAL TRANSVERSE, POLYP, BIOPSY: - Fragments of tubular adenoma. B. COLON, CECUM, POLYP, BIOPSY: - Inflammatory polyp. 01/21/2020 17:10 EDT [facility] Attestation There was significant resident/fellow involvement in the diagnostic evaluation of this case. By the signature below, the attending physician certifies that they have personally conducted a gross and/or microscopic examination of the described specimens and rendered or confirmed the above diagnosis. 01/21/2020 17:10 EDT [facility] at 1710 Clinical History History of colon cancer; anastomotic stricture in sigmoid colon; colon polyps 01/21/2020 17:10 EDT [facility] Gross Description A. Received in formalin labelled with proper patient identification (initials G, R) and 4 mm proximal transverse colon polyp are 2 fragments of holt tissue measuring 0.3 cm and 0.4 cm in greatest dimension. The specimens are submitted entirely in A1. B. Received in formalin labelled with proper patient identification (initials G, R) and 6 mm cecal polyp cold snare is a single polyp (0.5 x 0.4 x 0.4 cm). The specimen is submitted entirely in B1. 01/19/2020 16:36 01/21/2020 17:10 EDT [facility] Resident/Rupert w: Maninder Holly MD 01/21/2020 17:10 EDT [facility] Performing Lab [facility] 01/21/2020 17:10 EDT [facility] Scanned Images 01/21/2020 17:10 EDT [facility] Tissue CECUM STRUCTURE / Unknown 01/18/2020 14:25 EDT 01/19/2020 16:25 EDT Tissue specimen (specimen) CECUM STRUCTURE / Unknown 01/18/2020 14:25 EDT 01/19/2020 16:25 EDT Nazario Monet MD PATHOLOGY ORD ERABLES [facility] [address] [place] [address] documented in this encounter Visit Diagnoses Diagnosis Encounter for screening for malignant neoplasm of colon Special screening for malignant neoplasms, colon Personal history of colonic polyps documented in this encounter Care Teams Hoisting Engineer Relationship Specialty Start Date End Date Alisa Ugarte MD [address] [place] [id number] PCP - General 08/14/11 documented as of this encounter
--- OUTSIDE RECORDS SUMMARY | 2024-01-07 02:45 | XMS_ITS | Encounter Summary ---
[place] [address] Care Team Providers Care Cooking Instructor Name Role Phone Mary Barton APRN Primary Care Provider [phone] Reason for Referral * Consultation (Routine) - Authorized Specialty Diagnoses / Procedures Referred By Temitope michaels Referred To Contact Endocrinology Diagnoses Nontoxic single thyroid nodule Mary Barton APRN [address] [place] [address] [facility] Endocrinology [address] [place] [phone] Referral ID Status Reason Start Date Expiration Date Visits Requested Visits Authorized [id number] Authorized Consult, Test & Treat 11/04/2023 11/03/2024 1 1 Encounter Details Date Type Department Care Team (Latest Contact Info) Description 11/04/2023 Transcribe Orders eDH Incoming Referrals [phone] Mary Barton APRN [address] [place], [place] [id number] Nontoxic single thyroid nodule Social History Tobacco Use Types Packs/Day Years [...] as of this encounter Plan of Treatment Upcoming Encounters Date Type Department Care Team (Late st Contact Info) Description 02/17/2024 1:00 PM EDT Office Visit [place] [address] Julian Kate MD [facility] [place] [place] [address] Scheduled Referrals Name Type Priority Associated Diagnoses Orde r Schedule Referral to ENT Outpatient Referral Routine Nontoxic single thyroid nodule Ordered: 11/04/2023 documented as of this encounter Visit Diagnoses Diagnosis Nontoxic single thyroid nodule Nontoxic uninodular goiter documented in this encounter Care Teams Cooking Instructor Relationship Specialty Start Date End Date Mary Barton APRN PCP - General Family Medicine 11/15/20 documented as of this encounter
--- OUTSIDE RECORDS SUMMARY | 2024-01-07 02:45 | XMS_ITS | Encounter Summary ---
Author Organization [facility] Address [address] [place] [address] Care Team Providers Care Motor And Chassis Inspector Name Role Phone Alisa Ugarte MD Primary Care Provider Encounter Details Date Type Department Care Team (Late st Contact Info) Description 09/19/[address] [facility] Pathology & Laboratory Medicine - [facility] [address] [place] [address] Outr Resulting Lab, Provider Social History Tobacco Use Types Packs/Day Years Used Date Smoking Tobacco: Never Assessed Interpersonal Safety Answer Date Record ed Physically Hurt Never 02/07/2020 Verbally Threaten Not on file 02/07/2020 Sex and Gender Information Value Date Recorded Sex Assigned at Not on file Gender Identity Not on file Sexual Orientation Not on file documented as of this encounter Plan of Treatment Not on file documented as of this encounter Procedures Procedure Name Priority Date/Time Associated Diagnosis Comments CELIAC DISEASE PANEL Routine 09/18/2022 14:15 EDT HEPATITIS C AB W REFLEX TO HCV RNA BY PCR Routine 09/18/2022 14:15 EDT documented in this encounter Results * HEPATITIS C AB W REFLEX TO HCV RNA BY PCR (09/18/2022 14:15 EDT) Hep C Antibody Negative Negative 09/20/2022 9:31 EDT [facility] Blood VENOUS BLOOD / Unknown 09/18/2022 14:15 EDT 09/19/2022 16:42 EDT Provider Outr Resulting Lab CHEMISTRY & BLOOD GAS ORDERABLES Performing Organization Address [facility] de Phone Number [facility] [address] [place] [address] * CELIAC DISEASE PANEL (09/18/2022 14:15 EDT) Tissue Transglutaminase Antibody IGA <1.2 <4.0 U/mL 09/20/2022 11:57 EDT [facility] Comment: A negative result may be due to IgA deficiency and does not rule out celiac disease. ? Negative: ??<4.0 U/mL ? Weak Positive: ??4.0 - 10.0 U/mL ? Positive: ??>10.0 U/mL Results were obtained with the CovagenA Lite R h-tTG IgA ISAIAH assay on the [employer] DSX. IgA 86 85 - 499 mg/dL 09/20/2022 11:57 EDT [facility] Celiac Disease Interpretation Negative Serology. Celiac disease unlikely. Approximately 10% of patients with celiac disease are seronegative. Patients who are already adhering to a gluten-free diet may also be seronegative. If celiac disease is highly clinically suspected, referral to gastroenterology for additional evaluation is recommended. 09/20/2022 11:57 EDT [facility] Blood VENOUS BLOOD / Unknown 09/18/2022 14:15 EDT 09/19/2022 16:42 EDT Provider Outr Resulting Lab IMMUNOLOGY A ND SEROLOGY ORDERABLES Performing Organization Address [facility] Co de Phone Number [facility] [address] [place] [address] documented in this encounter Visit Diagnoses Not on filedocumented in this encounter Care Teams Motor And Chassis Inspector Relationship Specialty Start Date End Date Alisa Ugarte MD [address] [place] [address] PCP - General 08/14/11 documented as of this encounter
--- OUTSIDE RECORDS SUMMARY | 2024-01-07 02:45 | XMS_ITS | Encounter Summary ---
Author Organization [facility] [place] [address] Care Team Providers Care Manager New Product Name Role Phone Mary Barton APRN Primary Care Provider [phone] Encounter Details Date Type Department Care Team (Latest Contact Info) Description 08/19/2023 Travel Social History Tobacco Use Types Packs/Day Years [...] 1:00 PM EDT Office [place] [address] uJlian Kate MD [facility] [place] [address] documented as of this encounter Visit Diagnoses Not on filedocumented in this encounter Care Teams Manager New Product Relationship Specialty Start Date End Date Mary Barton APRN PCP - General Family Medicine 11/15/20 documented as of this encounter
--- OUTSIDE RECORDS SUMMARY | 2024-01-07 02:45 | XMS_ITS | Encounter Summary ---
Author Organization [facility] [place] [address] Care Team Providers Care Medical Csr Name Role Phone Mary Barton APRN Primary Care Provider [phone] Encounter Details Date Type Department Care Team (Late st Contact Info) Description 08/19/2023 Notes [place] [address] Juan Marie MD [facility] [address] [place] [address] Social History Tobacco Use Types Packs/Day Years [...] as of this encounter Progress Notes * Juan Marie MD - 08/19/2023 11:59 PM EDT [employer] ATTUNE Revision DSJ-2015-06: Multi-Center Clinical Evaluation of the ATTUNE Revision System In Revision Total Knee Arthroplasty Knee Society Score (2011) - Surgeon Charnley Function Classification (kenneth ONE): B1 - Unilateral TKA, opposite knee arthritis Alignment: measured on AP standing X-ray (anatomic alignment) (kenneth ONE): Neutral: 2 - 10 degrees valgus Medial/Lateral Instability: measured in full extension (kenneth ONE): None Anterior/Posterior Instability: measured at 90 degrees (kenneth ONE): None Range of motion: Flexion Contracture (kenneth ONE): 0 degrees Extensor Lag (kenneth ONE): 0 degrees Passive Flexion (measured with goniometer): 90 degrees Extension (measured with goniometer): 0 degrees Hyperextension? [X] No Pain (kenneth ONE): Mild or occasional Based on Version 1.0 [id number] - Knee Society Score(2010) To Be Completed by Surgeon documented in this encounter Plan of Treatment Upcoming Encounters Date Type Department Care Team (Late st Contact Info) Description 02/17/2024 1:00 PM EDT Office [place] [address] Julian aKte MD [facility] [place] [address] documented as of this encounter Visit Diagnoses Not on filedocumented in this encounter Care Teams Medical Csr Relationship Specialty Start Date End Date Mary Barton APRN PCP - General Family Medicine 11/15/20 documented as of this encounter
--- OUTSIDE RECORDS SUMMARY | 2024-01-07 02:45 | XMS_ITS | Encounter Summary ---
Author Organization [facility] Address [address] [place] [address] Care Team Providers Care Cotton Bag Sewer Name Role Phone Alisa Ugarte MD Primary Care Provider Encounter Details Date Type Department Care Team (Late st Contact Info) Description 10/21/2020 Lab Requisition [facility] Pathology & Laboratory Medicine - [facility] [address] [place] [address] Nazario Monet MD [address] [place] [phone] Acquired absence of other specified parts of digestive tract; Personal history of other malignant neoplasm of large intestine Social History Tobacco Use Types Packs/Day Years [...] Date/Time Associated Diagnosis Comments SURGICAL PATHOLOGY Today 10/21/2020 10 :54 EDT 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 COLON, SIGMOID, BIOPSY: - Tubular adenoma. - Separate fragment of polypoid colonic mucosa. - Deeper levels examined. B. COLON, RECTOSIGMOID, BIOPSY: - Tubular adenoma. 10/27/2020 16:59 EDT [facility] Attestation By the signature below, the attending physician certifies that they have 1) personally conducted a gross and/or microscopic examination of the described specimen(s), and/or personally interpreted the results of laboratory testing of the described specimen(s), and 2) personally rendered or confirmed the above diagnosis. 10/27/2020 16:59 EDT [facility] at 1659 Clinical History Anastomotic stricture; clinical diagnosis code: Z90.49, Z85.038 10/27/2020 16:59 EDT [facility] Gross Description A. Received in formalin labelled with proper patient identification (initials G, R) and polyps sigmoid colon x2 are 2 fragments of holt soft tissue (each averaging 0.2 x 0.2 x 0.2 cm). The specimen is entirely submitted in A1. B. Received in formalin labelled with proper patient identification (initials G, R) and polyp in rectosigmoid colon are 2 fragments of holt soft tissue (each averaging 0.2 x 0.2 x 0.2 cm). The specimen is entirely submitted in B1. [place](ASCP) 10/25/2020 8:02 10/27/2020 16:59 EDT [facility] Performing Lab [facility] 10/27/2020 16:59 EDT [facility] Scanned Images 10/27/2020 16:59 EDT [facility] Tissue ENTIRE SIGMOID COLON / Unknown 10/21/2020 10:54 EDT 10/21/2020 23:42 EDT Tissue specimen (specimen) SIGMOID COLON STRUCTURE / Unknown 10/21/2020 10:54 EDT 10/21/2020 23:42 EDT Nazario Monet MD PATHOLOGY ORD ERABLES [facility] [address] [place] [address] documented in this encounter Visit Diagnoses Diagnosis 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
--- OUTSIDE RECORDS SUMMARY | 2024-01-07 02:45 | XMS_ITS | Encounter Summary ---
Author Organization [facility] Address [address] [place] [address] Care Team Providers Care Subcontract Administrator Name Role Phone Alisa Ugarte MD Primary Care Provider [phone] Encounter Details Date Type Department Care Team (Late st Contact Info) Description 06/28/2021 Lab Requisition [facility] Pathology & Laboratory Medicine - [facility] [address] [place] [address] Outr Resulting Lab, Provider Social History Tobacco [...] Procedure Name Priority Date/Time Associated Diagnosis Comments CEA Routine 06/27/2021 10:45 EST documented in this encounter Results * CEA (06/27/2021 10:45 EST) CEA 2.7 See Note ng/mL 06/28/2021 16:39 EST [facility] Comment: % Distribution of CEA (ng/mL): ??0.0 - 2.5 in 98.2% of Nonsmokers and 87.3% of Smokers ??2.6 - 5 in 1.8% of Nonsmokers and 8% of Smokers ??5.1 - 10.1 in 4.7% of Smokers NOTE: Serum CEA concentration should not be interpeted as absolute evidence for the presence or absence of malignant disease. ?? Assayed on Siemens ADVIA Centaur XPT using chemiluminescent technology. ??Values obtained by different assay methods cannot be used interchangeably. Blood VENOUS BLOOD / Unknown 06/27/2021 10:45 EST 06/28/2021 15:50 EST Provider Outr Resulting Lab CHEMISTRY & BLOOD GAS ORDERABLES Performing Organization Address City/State/[facility] Co de Phone Number [facility] [address] [place] [address] documented in this encounter Visit Diagnoses Not on filedocumented in this encounter Care Teams Subcontract Administrator Relationship Specialty Start Date End Date Alisa Ugarte MD [address] [place] [address] PCP - General 08/14/11 documented as of this encounter
--- OUTSIDE RECORDS SUMMARY | 2024-01-07 02:45 | XMS_ITS | Encounter Summary ---
Author Organization [facility] Address [facility] [place] [address] Care Team Providers Care Printed Circuit Boards Inspector Name Role Phone Mary Barton Kathleen MAHAN Primary Care Provider [phone] Encounter Details Date Type Department Care Team (Latest Contact Info) Description 08/19/2023 12:40 PM EDT - 08/19/2023 11:59 PM EDT Hospital Encounter XRay at [address] [place] [id number] S/P revision of total knee, right Discharge Disposition: Home Social History Tobacco Use Types Packs/Day Years [...] on file documented as of this encounter Medications at Time of Discharge Medication Sig Dispensed Refills Start Date End Date DULoxetine DR (Cymbalta) [address] capsule 08/16/2023 hydroCHLOROthiazide 12.5 mg tablet 07/11/2023 aspirin 81 mg Tablet, Chewable Take 81 mg by mouth daily. Rizatriptan (MAXALT-STEAM CLOTHES PRESS OPERATOR) 5 mg Tablet, Rapid Dissolve Prn for migraines 01/02/2021 meloxicam (MOBIC) 15 mg Tablet You can take naproxen OR meloxicam OR ibuprofen/motrin. Take daily as needed 30 tablet 12 02/18/2021 acetaminophen (Tylenol) 500 mg Tablet Take 2 tablets by mouth every 8 hours. 0 02/18/2021 polyethylene glycoL (Miralax) 17 gram Powder in Packet Take 17 g by mouth daily. gabapentin (Neurontin) 100 mg Capsule 200 mg. 200 mg BID and 300 mg QHS 01/16/2021 fluticasone propionate (Flonase) 50 mcg/actuation [place], Suspension SHAKE LIQUID AND USE 2 SPRAYS IN EACH NOSTRIL DAILY 09/13/2020 busPIRone (Buspar) 10 mg Tablet Take 20 mg by mouth 2 times daily. 11/03/2020 calcium carbonate (Tums) 200 mg calcium (500 mg) Tablet, Chewable As needed 07/30/2018 escitalopram (Lexapro) 20 mg Tablet Daily. Propylene Glycol-Glycerin 1-0.3 % Drops Artificial Tears (glycerin-peg) 1 %-0.3 % eye drops Levothyroxine (Tirosint) 50 mcg Capsule Take 50 mcg by mouth Daily. lidocaine (Lidoderm) 5% Adhesive Patch, Medicated Q24H 12/01/2020 losartan (COZAAR) 50 mg Tablet Take 50 mg by mouth daily. simvastatin (ZOCOR) 20 mg Tablet Take 20 mg by mouth nightly. cholecalciferol, Vitamin D3, 400 unit Tablet Take 400 Units by mouth daily. documented as of this encounter Plan of Treatment Upcoming Encounters Date Type Department Care Team (Late st Contact Info) Description 02/17/2024 1:00 PM EDT Office [place] [address] Julian Kate MD [facility] [place] [address] documented as of this encounter Procedures Procedure Name Priority Date/Time Associated Diagnosis Comments RESEARCH- XR KNEE 1-2 VIEWS RIGHT Routine 08/19/2023 1:09 PM EDT S/P revision of total knee, right RESEARCH-XR SKYLINE ONLY Routine 08/19/2023 1:09 PM EDT S/P revision of total knee, right documented in this encounter Results * RESEARCH-XR Knee 1-2 views Right (08/19/2023 1:09 PM EDT) Anatomical Region Laterality Modality Knee Right Digital Radiogra phy Impressions 08/20/2023 8:20 AM EDT Status post revision right total knee arthroplasty without radiographic finding of complication or acute abnormality. Thank you for letting us participate in the care of this patient. ??If you are a health care provider and have any questions regarding this report, please contact the number below. ??For patients who have questions please contact the health dialysis patient care technician that requested your imaging first. ? Narrative 08/20/2023 8:20 AM EDT EXAMINATION: RESEARCH- XR KNEE 1-2 VIEWS RIGHT CLINICAL HISTORY: s/p R TKA Revision TECHNIQUE: AP and lateral right knee radiographs COMPARISON: Radiographs December 19February 17 and March 20, 2021; February 19, 2022 FINDINGS: Cemented, revision total knee arthroplasty hardware is intact without adjacent lucency, periprosthetic fracture, change in position or joint malalignment. No effusion. No focal soft tissue abnormality. Procedure Note Krystina Sun MD - 08/20/2023 EXAMINATION: RESEARCH- XR KNEE 1-2 VIEWS RIGHT CLINICAL HISTORY: s/p R TKA Revision TECHNIQUE: AP and lateral right knee radiographs COMPARISON: Radiographs December 19February 17 and March 20, 2021; January FINDINGS: Cemented, revision total knee arthroplasty hardware is intact withoutadjacent lucency, periprosthetic fracture, change in position or jointmalalignment. No effusion. No focal soft tissue abnormality. IMPRESSION Status post revision right total knee arthroplasty without radiographicfinding of complication or acute abnormality. Thank you for letting us participate in the care of this patient. If youare a health care provider and have any questions regarding this report,please contact the number below. For patients who have questions please contactthe health dialysis patient care technician that requested your imaging first. Juan Marie MD IMG RESEARCH ORDERA BLES * RESEARCH-XR [place] Only (08/19/2023 1:09 PM EDT) Anatomical Region Laterality Modality Knee Digital Radiogra phy Impressions 08/19/2023 2:46 PM EDT FINDINGS/IMPRESSION: Partial visualization of a right total knee arthroplasty. Prepatellar soft tissue irregularity consistent with postsurgical change. Normal alignment of the bilateral patellofemoral compartments. Marginal osteophytes of the left patella. Thank you for letting us participate in the care of this patient. ??If you are a health care provider and have any questions regarding this report, please contact the number below. ??For patients who have questions please contact the health dialysis patient care technician that requested your imaging first. ? Narrative 08/19/2023 2:46 PM EDT EXAMINATION: RESEARCH-XR SKYLINE ONLY CLINICAL HISTORY: RT KNEE ATTUNE STUDY- rt knee AP unilateral (as entered by ordering provider in the order requisition) TECHNIQUE: Jette views the bilateral knees. COMPARISON: Bilateral knee radiographs 02/19/2022 Procedure Note Vanessa Abad MD - 08/19/2023 EXAMINATION: RESEARCH-XR SKYLINE ONLY CLINICAL HISTORY: RT KNEE ATTUNE STUDY- rt knee AP unilateral (as entered by ordering provider inthe order requisition) TECHNIQUE: Jette views the bilateral knees. COMPARISON: Bilateral knee radiographs 02/19/2022 IMPRESSION FINDINGS/IMPRESSION: Partial visualization of a right total knee arthroplasty. Prepatellarsoft tissue irregularity consistent with postsurgical change. Normal alignment of the bilateral patellofemoral compartments. Marginal osteophytes of the left patella. Thank you for letting us participate in the care of this patient. If youare a health care provider and have any questions regarding this report,please contact the number below. For patients who have questions please contactthe health dialysis patient care technician that requested your imaging first. Juan Marie MD IMG RESEARCH ORDERA BLES documented in this encounter Visit Diagnoses Diagnosis S/P revision of total knee, right documented in this encounter Care Teams Printed Circuit Boards Inspector Relationship Specialty Start Date End Date Mary Barton APRN PCP - General Family Medicine 11/15/20 documented as of this encounter
--- OUTSIDE RECORDS SUMMARY | 2024-01-07 02:45 | XMS_ITS | Referral Summary ---
Author Organization [facility] Address [address] [place] [address] Care Team Providers Care Rolled Ham Lacer Name Role Phone Alisa Ugarte MD Primary Care Provider [phone] Social History Tobacco Use Types Packs/Day Years Used Date Smoking Tobacco: Never Assessed Interpersonal Safety Answer Date Record ed Physically Hurt Never 02/07/2020 Verbally Threaten Not on file 02/07/2020 Sex and Gender Information Value Date Recorded Sex Assigned at Not on file Gender Identity Not on file Sexual Orientation Not on file Plan of Treatment Not on file Procedures Procedure Name Priority Date/Time Associated Diagnosis Comments HEPATITIS C AB W REFLEX TO HCV RNA BY PCR Routine 09/18/2022 14:15 EDT from Last 3 Months or Most Recently Relevant to Health Maintenance Results * HEPATITIS C AB W REFLEX TO HCV RNA BY PCR (09/18/2022 14:15 EDT) Hep C Antibody Negative Negative 09/20/2022 9:31 EDT [facility] Blood VENOUS BLOOD / Unknown 09/18/2022 14:15 EDT 09/19/2022 16:42 EDT Provider Outr Resulting Lab CHEMISTRY & BLOOD GAS ORDERABLES [facility] [address] [place] [address] from Last 3 Months or Most Recently Relevant to Health Maintenance Care Teams Rolled Ham Lacer Relationship Specialty Start Date End Date Alisa Ugarte MD [address] [place], [place] [id number] PCP - General 08/14/11
--- OUTSIDE RECORDS SUMMARY | 2024-01-07 02:45 | XMS_ITS | Encounter Summary ---
Author Organization [facility] Address [address] [place] [address] Care Team Providers Care Documentation Designer Name Role Phone Alisa Ugarte MD Primary Care Provider [phone] Encounter Details Date Type Department Care Team (Late st Contact Info) Description 11/13/2022 Lab Requisition [facility] Pathology & Laboratory Medicine - [facility] [address] [place] [address] Outr Resulting Lab, Provider Social History Tobacco [...] Priority Date/Time Associated Diagnosis Comments CEA Routine 11/13/2022 13:50 EDT documented in this encounter Results * CEA (11/13/2022 13:50 EDT) CEA 3.0 See Note ng/mL 11/13/2022 22:[address] [facility] Comment: % Distribution of CEA [...] used interchangeably. Blood VENOUS BLOOD / Unknown 11/13/2022 13:50 EDT 11/13/2022 21:08 EDT Provider Outr Resulting Lab CHEMISTRY & BLOOD GAS ORDERABLES [facility] [address] [place] [address] documented in this encounter Visit Diagnoses Not on filedocumented in this encounter Care Teams Documentation Designer Relationship Specialty Start Date End Date Alisa Ugarte MD [address] [place] [address] PCP - General 08/14/11 documented as of this encounter
--- OUTSIDE RECORDS SUMMARY | 2024-01-07 02:45 | XMS_ITS | Encounter Summary ---
Author Organization [facility] Address [address] [place] [address] Care Team Providers Care Landscape Designer Name Role Phone Alisa Ugarte MD Primary Care Provider [phone] Encounter Details Date Type Department Care Team (Late st Contact Info) Description 07/28/2019 Lab Requisition [facility] Pathology & Laboratory Medicine - [facility] [address] [place] [address] Unknown, Provider, Social History Tobacco Use Types Packs/Day Years Used Date Smoking Tobacco: Never Assessed Sex and Gender Information Value Date Recorded Sex Assigned at Not on file Gender Identity Not on file Sexual Orientation Not on file documented as of this encounter Plan of Treatment Not on file documented as of this encounter Procedures Procedure Name Priority Date/Time Associated Diagnosis Comments CEA Routine 07/27/2019 14:00 EST documented in this encounter Results * CEA (07/27/2019 14:00 EST) CEA 2.5 See Note ng/mL 07/29/2019 11:25 EST [facility] Comment: % Distribution of CEA (ng/mL): ??0.0 - 2.5 in 98.2% of Nonsmokers and 87.3% of Smokers ??2.6 - 5 in 1.8% of Nonsmokers and 8% of Smokers ??5.1 - 10.1 in 4.7% of Smokers NOTE: Serum CEA concentration should not be interpeted as absolute evidence for the presence or absence of malignant disease. ?? Assayed on Siemens ADVIA WeLinkaur XPT using chemiluminescent technology. ??Values obtained by different assay methods cannot be used interchangeably. Blood VENOUS BLOOD / Unknown 07/27/2019 14:00 EST 07/28/2019 16:09 EST Provider Unknown CHEMISTRY & BLOOD GA S ORDERABLES [facility] [address] [place] [address] documented in this encounter Visit Diagnoses Not on filedocumented in this encounter Care Teams Landscape Designer Relationship Specialty Start Date End Date Alisa Ugarte MD [address] [place] [address] PCP - General 08/14/11 documented as of this encounter
--- OUTSIDE RECORDS SUMMARY | 2024-01-07 02:45 | XMS_ITS | Encounter Summary ---
Author Organization [facility] Address [address] [place] [address] Care Team Providers Care Letterpress Setter Name Role Phone Alisa Ugarte MD Primary Care Provider Encounter Details Date Type Department Care Team (Late st Contact Info) Description 09/20/2022 Lab Requisition [facility] Pathology & Laboratory Medicine - [facility] [address] [place] [address] Outr Resulting Lab, Provider Social History Tobacco [...] Procedure Name Priority Date/Time Associated Diagnosis Comments HOLD SST Today 09/19/2022 13:10 EDT HEPATITIS A TOTAL ANTIBODY W REFLEX Today 09/19/2022 13:10 EDT HEPATITIS B SURFACE ANTIGEN Today 09/19/2022 13:10 EDT documented in this encounter Results * HOLD SST (09/19/2022 13:10 EDT) Hold Hold 09/20/2022 18:45 EDT [facility] Blood VENOUS BLOOD / Unknown 09/19/2022 13:10 EDT 09/20/2022 17:34 EDT Provider Outr Resulting Lab LAB INFO SER VICE AND SUPPORT & PHONE RESULT Performing Organization Address [facility]/ZIP Co de Phone Number [facility] [address] [place] [address] * HEPATITIS B SURFACE ANTIGEN (09/19/2022 13:10 EDT) Hep B Surface Ag Negative Negative 09/21/2022 9:14 EDT [facility] Blood VENOUS BLOOD / Unknown 09/19/2022 13:10 EDT 09/20/2022 17:33 EDT Provider Outr Resulting Lab CHEMISTRY & BLOOD GAS ORDERABLES Performing Organization Address [facility] de Phone Number [facility] [address] [place] [address] * HEPATITIS A TOTAL ANTIBODY W REFLEX (09/19/2022 13:10 EDT) Hepatitis A Antibody, Total Negative Negative 09/21/2022 10:31 EDT [facility] Blood VENOUS BLOOD / Unknown 09/19/2022 13:10 EDT 09/20/2022 17:33 EDT Narrative [facility] - 09/21/2022 10:31 EDT The result of this assay can be falsely elevated (Positive) due to the consumption of Biotin. Provider Outr Resulting Lab CHEMISTRY & BLOOD GAS ORDERABLES Performing Organization Address [facility] Co de Phone Number [facility] [address] [place] [address] documented in this encounter Visit Diagnoses Not on filedocumented in this encounter Care Teams Letterpress Setter Relationship Specialty Start Date End Date Alisa Ugarte MD [address] [place] [id number] PCP - General 08/14/11 documented as of this encounter
--- OUTSIDE RECORDS SUMMARY | 2024-01-07 02:45 | XMS_ITS | Encounter Summary ---
Author Organization [facility] Address [address] [place] [address] Care Team Providers Care Power Machine Operator Name Role Phone Alisa Ugarte MD Primary Care Provider [phone] Encounter Details Date Type Department Care Team (Late st Contact Info) Description 09/14/2020 Lab Requisition [facility] Pathology & Laboratory Medicine - [facility] [address] [place] [address] Outr Resulting Lab, Provider Social History Tobacco [...] Priority Date/Time Associated Diagnosis Comments CEA Routine 09/13/2020 14:15 EDT documented in this encounter Results * CEA (09/13/2020 14:15 EDT) CEA 2.3 See Note ng/mL 09/14/2020 17:22 EDT [facility] Comment: % Distribution of CEA [...] used interchangeably. Blood VENOUS BLOOD / Unknown 09/13/2020 14:15 EDT 09/14/2020 15:49 EDT Provider Outr Resulting Lab CHEMISTRY & BLOOD GAS ORDERABLES [facility] [address] [place] [address] documented in this encounter Visit Diagnoses Not on filedocumented in this encounter Care Teams Power Machine Operator Relationship Specialty Start Date End Date Alisa Ugarte MD [address] [place] [address] PCP - General 08/14/11 documented as of this encounter
--- OUTSIDE RECORDS SUMMARY | 2024-01-07 02:45 | XMS_ITS | Encounter Summary ---
Author Organization [facility] Address [address] [place] [address] Care Team Providers Care Body Care Manager Name Role Phone Alisa Ugarte MD Primary Care Provider [phone] Encounter Details Date Type Department Care Team (Late st Contact Info) Description 09/24/2023 Lab Requisition [facility] Pathology & Laboratory Medicine - [facility] [address] [place], [place] [address] Outr Resulting Lab, Provider Social History Tobacco [...] Procedure Name Priority Date/Time Associated Diagnosis Comments LYME AB Routine 09/23/2023 15:15 EDT documented in this encounter Results * LYME AB (09/23/2023 15:15 EDT) Lyme Ab Negative Negative 09/25/2023 9:02 EDT [facility] Blood VENOUS BLOOD / Unknown 09/23/2023 15:15 EDT 09/24/2023 16:53 EDT Provider Outr Resulting Lab IMMUNOLOGY A ND SEROLOGY ORDERABLES [facility] [address] [place] [address] documented in this encounter Visit Diagnoses Not on filedocumented in this encounter Care Teams Body Care Manager Relationship Specialty Start Date End Date Alisa Ugarte MD [address] [place] [address] PCP - General 08/14/11 documented as of this encounter
--- OUTSIDE RECORDS SUMMARY | 2024-01-07 02:45 | XMS_ITS | Clinical Summary ---
Author Organization [facility] Address [address] [place] [address] Care Team Providers Care Supervisor [employer] Name Role Phone Alisa Ugarte MD Primary Care Provider [phone] Social History Tobacco Use Types Packs/Day Years Used Date Smoking Tobacco: Never Assessed Interpersonal Safety Answer Date Record ed Physically Hurt Never 02/07/2020 Verbally Threaten Not on file 02/07/2020 Sex and Gender Information Value Date Recorded Sex Assigned at Not on file Gender Identity Not on file Sexual Orientation Not on file Plan of Treatment Health Maintenance Due Date Last Done Comments RSV Immunization ( o r 60+ Years) (1 - 1-dose 60+ series) 2012 Fall Risk Screening 2017 COVID-19 Vaccine ( season) 2023 Hepatitis C Screen Completed 09/18/2022 Procedures Procedure Name Priority Date/Time Associated Diagnosis Comments HEPATITIS C AB W REFLEX TO HCV RNA BY PCR Routine 09/18/2022 14:15 EDT from Last 3 Months or Most Recently Relevant to Health Maintenance Results * HEPATITIS C AB W REFLEX TO HCV RNA BY PCR (09/18/2022 14:15 EDT) Hep C Antibody Negative Negative 09/20/2022 9:31 EDT [facility] Blood VENOUS BLOOD / Unknown 09/18/2022 14:15 EDT 09/19/2022 16:42 EDT Provider Outr Resulting Lab CHEMISTRY & BLOOD GAS ORDERABLES [facility] [address] [place] [id number] from Last 3 Months or Most Recently Relevant to Health Maintenance Care Teams Supervisor [employer] Relationship Specialty Start Date End Date Alisa Ugarte MD [address] [place] [id number] PCP - General 08/14/11
--- OUTSIDE RECORDS SUMMARY | 2024-01-07 02:45 | XMS_ITS | Encounter Summary ---
Author Organization [facility] Address [address] [place] [address] Care Team Providers Care Building Maintenance Superintendent Name Role Phone Unknown, Provider Primary Care Provider Encounter Details Date Type Department Care Team ([facility] st Contact Info) Description 08/10/2011 Results Only [facility] [address] [place] [address] Salvador Martinez DPM [address] [place] [phone] Social History Tobacco Use Types Packs/Day Years Used Date Smoking Tobacco: Never Assessed Sex and Gender Information Value Date Recorded Sex Assigned at Not on file Gender Identity Not on file Sexual Orientation Not on file documented as of this encounter Plan of Treatment Not on file documented as of this encounter Procedures Procedure Name Priority Date/Time Associated Diagnosis Comments SURGICAL PATHOLOGY Routine 08/10/2011 0:00 EDT documented in this encounter Results * SURGICAL PATHOLOGY (08/10/2011 0:00 EDT) Pathology Report: SURGICAL PATHOLOGY REPORT Reports generated via electronic interface contain original data; however they are lacking the format of the original report. Caution should be taken when reading/interpreting unformatted reports. Name: ? CHRISTOPHE LACKEY ? Accession #: ? [id number] ? : ? 1950 (Age: 60) ??F ? Collect Date: ? 08/10/2011 ? Location: ? [facility] ? Receive Date: ? 08/10/2011 ? Provider: SALVADOR SMITHM Copy to: CONRAD OLSON MD ? Final Pathologic Diagnosis: ? Submitted as neuroma, left foot, excision: - Features consistent with traumatic neuroma. ??See comment. Comment: ? This case has been reviewed at the intradepartmental consultation conference. (Dr. Castellano)/[facility] Document reviewed and electronically signed by: JAZMINE CASTELLANO MD Report ??Date: 08/15/2011 15:53 By the signature above, the attending physician certifies that he/she has personally conducted a gross and/or microscopic examination of the described specimens and rendered or confirmed the above diagnosis. Specimen(s) Received: ? Neuroma left foot 2nd space Clinical History: ? Neuroma left foot Gross Description: ? Received in formalin labelled Lackey, Christophe and neuroma left foot is a holt-yellow to white fibrous unoriented 1.7 x 0.8 x 0.5 cm soft tissue. ??The cut surfaces are holt-yellow and homogeneous. ??The specimen is inked, longitudinally bisected and entirely submitted in one cassette. (Vashti James)/[facility] End of Report TABITHA BORJA 08/10/2011 08/10/2011 15: 51 EDT Salvadro Martinez DPM PATHOLOGY ORDERA ZAYRA TABITHA BORJA [address] [place] [address] documented in this encounter Visit Diagnoses Not on filedocumented in this encounter Care Teams Building Maintenance Superintendent Relationship Specialty Start Date End Date Unknown, Provider, PCP - General 08/10/11 08/13/11 documented as of this encounter
--- OUTSIDE RECORDS SUMMARY | 2024-01-07 02:45 | XMS_ITS | Encounter Summary ---
Author Organization [facility] [place] [address] Care Team Providers Care Computer System Validation Specialist Name Role Phone Mary Barton PEN TENDER Primary Care Provider [phone] Encounter Details Date Type Department Care Team (Late st Contact Info) Description 09/23/2023 Ancillary Procedure [place] [phone] Mary Barton, KALLI [address] [place] [address] Social History Tobacco Use Types Packs/Day Years [...] 1:00 PM EDT Office [place] [phone] Julian Kate MD [facility] [place] [address] documented as of this encounter Procedures Procedure Name Priority Date/Time Associated Diagnosis Comments FILM LIBRARY STORAGE ONLY CT HEAD AND SPINE Routine 09/23/2023 12:00 AM EDT documented in this encounter Results * Film Library- Storage Only CT Head And Spine (09/23/2023 12:00 AM EDT) Narrative SHAHID - 10/14/2023 11:12 AM EDT This exam is auto-finalizing. It's purpose is for storage only. Mary Barton APRN IMG FILM LIBRARY ORD ERABLES Performing Organization Address City/State/[facility] Co de Phone Number [place], [place] documented in this encounter Visit Diagnoses Not on filedocumented in this encounter Care Teams Computer System Validation Specialist Relationship Specialty Start Date End Date Mary Barton APRN PCP - General Family Medicine 11/15/20 documented as of this encounter
--- OUTSIDE RECORDS SUMMARY | 2024-01-07 02:46 | XMS_ITS | Encounter Summary ---
Author Organization [facility] Address [facility] [place] [address] Care Team Providers Care Sales Contract Administrator Name Role Phone Mary Barton APRN Primary Care Provider [phone] Encounter Details Date Type Department Care Team (Late st Contact Info) Description 02/21/2021 [place] [phone] Ksenia Serrato MD [facility] [place] [address] Social History Tobacco Use Types Packs/Day Years [...] as of this encounter Progress Notes * Ksenia Serrato MD - 02/21/2021 2:12 PM EDT Attempted to call patient via telephone to assess resolution of block with no answer. Please contact regional block team, pager [phone], with any concerns for residual numbness/tingling or weakness. Ksenia Serrato MD 02/21/21 documented in this encounter Plan of Treatment Upcoming Encounters Date Type Department Care Team (Late st Contact Info) Description 02/17/2024 1:00 PM EDT Office [place] [address] Julian Kate MD [facility] [place] [address] documented as of this encounter Visit Diagnoses Not on filedocumented in this encounter Care Teams Sales Contract Administrator Relationship Specialty Start Date End Date Mary Barton APRN PCP - General Family Medicine 11/15/20 documented as of this encounter
--- OUTSIDE RECORDS SUMMARY | 2024-01-07 02:46 | XMS_ITS | Encounter Summary ---
Author Organization [facility] [place] [address] Care Team Providers Care Ornamental Rail Installer Name Role Phone Mary Barton APRN Primary Care Provider [phone] Encounter Details Date Type Department Care Team (Latest Contact Info) Description 02/06/2021 12:30 PM EDT Clinical Support [facility] Day at [facility] [place] [phone] Debility; Pain of right lower extremity; Failed total knee arthroplasty, initial encounter; Arthrofibrosis of knee joint, right Social History Tobacco Use Types Packs/Day Years [...] as of this encounter Progress Notes * Holly Cordon RN - 02/06/2021 12:30 PM EDT PAT questionnaire reviewed with patient while in Pre Admission testing. Pre- operative instruction booklet reviewed. Patient verbalizes a good understanding of all information reviewed. No S/Sx's or Dx of Covid in last 3 months. PLAN: Testing: T&Sc, bloodwork (sent to 3L); EKG Special medication instructions: none Procedure date: 02/17 Frank documented in this encounter Plan of Treatment Upcoming Encounters Date Type Department Care Team (Late st Contact Info) Description 02/17/2024 1:00 PM EDT Office [place] [address] Julian Kate MD [facility] [place] [address] documented as of this encounter Procedures Procedure Name Priority Date/Time Associated Diagnosis Comments EKG 12-LEAD Routine 02/06/2021 2:04 PM EDT Debility Pain of right lower extremity Failed total knee arthroplasty, initial encounter Arthrofibrosis of knee joint, right documented in this encounter Results * EKG 12 Lead (02/06/2021 2:04 PM EDT) Ventricular rate 66 BPM MUSE SYSTEM Atrial Rate 66 BPM MUSE SYSTEM P-R Interval 178 ms MUSE SYSTEM QRS Duration 94 ms MUSE SYSTEM Q-T Interval 444 ms MUSE SYSTEM QTC Calculated (Bezet) 465 ms MUSE SYSTEM Calculated P Bartelso 63 degrees MUSE SYSTEM Calculated R Bartelso 39 degrees MUSE SYSTEM Calculated T Bartelso 55 degrees MUSE SYSTEM INTERPRETATION Normal sinus rhythm T wave abnormality, consider anterior ischemia Abnormal ECG No previous ECGs available Confirmed by MD Black, Nazario Fountain ([id number]) on 02/07/2021 2:38:53 PM MUSE SYSTEM 02/06/2021 2:04 PM EDT 02/07/2021 2:38 PM EDT Juan Marie MD ECG ORDERABLES MUSE SYSTEM documented in this encounter Visit Diagnoses Diagnosis Debility Debility, unspecified Pain of right lower extremity Failed total knee arthroplasty, initial encounter Arthrofibrosis of knee joint, right documented in this encounter Care Teams Ornamental Rail Installer Relationship Specialty Start Date End Date Mary Barton APRN PCP - General Family Medicine 11/15/20 documented as of this encounter
--- OUTSIDE RECORDS SUMMARY | 2024-01-07 02:46 | XMS_ITS | Encounter Summary ---
Author Organization [facility] [place] [address] Care Team Providers Care Glass Washer And Carrier Name Role Phone Mary Barton APRN Primary Care Provider [phone] Encounter Details Date Type Department Care Team (Late st Contact Info) Description 08/16/2023 Orders [place] [address] Marco Evangelista S/P revision of total knee, right Social History Tobacco Use Types Packs/Day [...] 1:00 PM EDT Office [place] [address] Julian Kate MD [facility] [place] [address] documented as of this encounter Results * RESEARCH-XR Knee 1-2 [...] who have questions please contact the health physician assistant primary care that requested your imaging first. ? Electronically signed by: Krystina Sun MD, [facility] ([phone]), at 08/20/2023 8:20 AM Narrative 08/20/2023 8:20 AM EDT EXAMINATION: RESEARCH- [...] patients who have questions please contactthe health physician assistant primary care that requested your imaging first. Juan Marie MD IMG RESEARCH ORDERA BLES documented in this encounter Visit Diagnoses Diagnosis S/P revision of total knee, right S/P revision of total knee, right documented in this encounter Care Teams Glass Washer And Carrier Relationship Specialty Start Date End Date Mary Barton APRN PCP - General Family Medicine 11/15/20 documented as of this encounter
--- OUTSIDE RECORDS SUMMARY | 2024-01-07 02:46 | XMS_ITS | Encounter Summary ---
Author Organization Formerly [facility] Address [facility] [place] [address] Care Team Providers Care Automobile Damage Appraiser Name Role Phone Mary Barton KALLI Primary Care Provider [phone] Reason for Visit * Reason Comments Follow-up R TKA REV DOS 1 Encounter Details Date Type Department Care Team (Late st Contact Info) Description 08/19/2023 2:10 PM EDT [place] [address] Juan Marie MD [facility] [place] [address] s/p R TKA revision for arthrofibrosis, 02/17/2021 Frank; S/P revision of total knee, right Social [...] on file documented as of this encounter Last Filed Vital Signs Vital Sign Reading Time Taken Comments Blood Pressure - - Pulse - - Temperature - - Respiratory Rate - - Oxygen Saturation - - Inhaled Oxygen Concentration - - Weight 107 kg (236 lb) 08/19/2023 1:17 PM EDT Height 157.5 cm (5' 2) 08/19/2023 1:17 PM EDT Body Mass Index 43.16 08/19/2023 1:17 PM EDT documented in this encounter Progress Notes * Juan Marie MD - 08/19/2023 2:10 PM EDT Images from the original note were not included. Department of Orthopaedics Division of Adult Joint Reconstructive Surgery I had the pleasure of evaluating Pari Lackey in clinic in conjunction with Jesse Gilliam PA-C as part of a shared visit. I performed the majority of this shared visit based on medical decision making. aPri Lackey presents in follow up after right total knee revision for arthrofibrosis. The patient has been doing well and is happy with the results. My personal independent review of the X-raysdemonstrate no radiographic issue. ROM ~0-90o. Follow up in 2 years with x-rays. Juan Marie MD, MS Chief, Division of Adult Reconstructive Phototypesetter OperatorRim Fire Priming Operator of Orthopaedics Department of Orthopaedics [facility] [place] [address] [email or web address] * eJsse Gilliam PA - 08/19/2023 2:10 PM EDT Arthroplasty/Orthopaedic History: R TKA 2015- Dr. Collazo R TKA synovectomy 2017- Dr. Collazo Right TKA Revision. Dr. Marie. 02/17/2021. HPI: Pari Lackey is a very pleasant 72 y.o. year-old female and is now 2 and a half years post right total knee revision. The patient has been doing much better than her previous appointment. Pain is controlled without any medications.. No fevers, chills, nausea, vomiting, or symptoms of infection. Pari has been ambulating with no assistive device. Patient endorses she is dramatically improved from her pre-op status. Denies instability. Notes persistent stiffness, but has maintained her ROM Can flex to 90 degrees, slightly beyond. Pleased with outcome. Endorses difficulties with ADLs due to a host of issues, but the knee has been a limiting factor in these such as kneeling, deep knee bending and squatting are difficult. ROS: Denies: fever, chills, night sweats, nausea, or vomiting Ht 157.5 cm (5' 2) Wt 107 kg (236 lb) BMI 43.16 kg/m?? Physical Exam: Well-appearing female in no acute distress. Alert and Oriented x 3 and answers all questions appropriately. The incision is well healed, with no signs of infection. Post Op Right Knee Exam: Knee ROM: Extension:0 Flexion: 95 Alignment: 0-4 degrees Neutral Stability: A/P Translation <5mm. Varus <5mm Valgus <5mm Extension La degrees or less Patella Tracking: Normal Pulses Palpable: Right PT: Yes Right DP:Yes Motor/Sensory: Distal Motor: Normal Distal Sensory: Normal Quadriceps Strength: 5 TTP about the pes anserine bursa. X-RAYS: Multiple radiographic views were obtained at my request and personally reviewed by me with the patient. X-rays show a well-placed prosthesis with no evidence of fracture, subsidence, loosening, or periprosthetic complication. No evidence of interval change or complication. No progressive lucencies, subsidence. Questionnaire Responses: 08/19/2023 [facility] Surgical Postop Visit PROMIS-10 General Health Good PROMIS-10 Quality of Life Fair PROMIS-10 Physical Health Fair PROMIS-10 Mental Health Good PROMIS-10 Social Activity Good TKA Grade 7 Pain in other KNEE Moderate Back pain at this moment None 02/19/2022 Orthopeadics [facility] Response KOOS JR Scores 68.28 02/19/2022 Spine [facility] Response KOOS JR Scores 68.28 ASSESSMENT/PLAN: Ms. Lackey is a 72 y.o. year old female status post right total knee revision. Doing well postoperatively. Continue weightbearing as tolerated and working on range of motion. We will see her back in 2 years for repeat examination. X-rays will be needed at that time. Patient may return to normal activities as her pain and function allow. Reviewed her exam, maintaining motion okay. Reviewed radiographs, no change. Tenderness over the pes bursa. RICES, topical voltaren. Recommend continued HEP, maintaining flexion as much as possible. This patient was seen in conjuncture with Dr. Marie. We discussed the appropriate precautions surrounding dental prophylaxis; according to the AAOS Appropriate Use Criteria we do not recommend antibiotic use prior to dental procedures for Pari. Recommended antibiotic: N/A If Pari has any changes in health status we recommend she contact our office prior to dental procedures for updated recommendations We also discussed maintaining good foot care and giving prompt attention to any source of infectionthroughout the body including foot ulcers and urinary tract infections. All questions were answered. Signed: CHAPINCITO BURGESS 08/19/2023 documented in this encounter Plan of Treatment Upcoming Encounters Date Type Department Care Team (Late st Contact Info) Description 02/17/2024 1:00 PM EDT Office [place] [address] Julian Kate MD [facility] [place] [address] documented as of this encounter Visit Diagnoses Diagnosis s/p R TKA revision for arthrofibrosis, 02/17/2021 Mos[place]tti S/P revision of total knee, right documented in this encounter Care Teams Automobile Damage Appraiser Relationship Specialty Start Date End Date Mary Barton APRN PCP - General Family Medicine 11/15/20 documented as of this encounter
--- OUTSIDE RECORDS SUMMARY | 2024-01-07 02:46 | XMS_ITS | Encounter Summary ---
Author Organization Formerly [facility] [place] [place] [address] Care Team Providers Care Customer Service Associate Name Role Phone Mary Barton APRN Primary Care Provider [phone] Encounter Details Date Type Department Care Team (Late st Contact Info) Description 02/17/2021 Notes [place] [address] Juan Marie MD [facility] [place] [address] Social History Tobacco Use Types Packs/Day Years [...] Progress Notes * Juan Marie MD - 02/17/2021 11:59 PM EDT Depuy Synthes ATTUNE Revision DSJ-2015-06: Multi-Center Clinical Evaluation of the ATTUNE Revision System In Revision Total Knee Arthroplasty SURVEY COMPLETE DATE: 02/17/2021 Affected Side: right Surgeon Satisfaction Survey (A score of 3 means that your degree of satisfaction is as good as what you currently use) 1. Please indicate your satisfaction with how this system (implants and instruments) was able to appropriately address the case: 3 - satisfied 2. Please indicate your satisfaction when reestablishing the joint line: 4 - strongly satisfied 3. Please indicate your satisfaction with the varus-valgus stability obtained in flexion: 3 - satisfied 4. Please indicate your satisfaction with the varus-valgus stability obtained in extension: 3 - satisfied 5. Please indicate your satisfaction with the flores-posterior stability obtained in flexion: 3 - satisfied 6. Please indicate your satisfaction with the flores-posterior stability obtained in extension: 3 - satisfied 7. Please indicate your satisfaction with the capability of the system to appropriately provide adequate fit and fill to the available bone cavity (regardless of bone graft use): 3 - satisfied 8. Please indicate your satisfaction with the capability of the system to appropriately provide adequate fit and fill to the available bone cavity as seen on the immediate post-operative x-ray (regardless of bone graft use): 3 - satisfied 9. Please indicate your satisfaction with the patello-femoral positioning and tracking in relation to the joint line: 3 - satisfied Based on Version 1.0 [id number] - Surgeon Satisfaction Survey documented in this encounter Plan of Treatment Upcoming Encounters Date Type Department Care Team (Late st Contact Info) Description 02/17/2024 1:00 PM EDT Office Visit [place] [address] Julian Kate MD [facility] [place] [address] documented as of this encounter Visit Diagnoses Not on filedocumented in this encounter Care Teams Customer Service Associate Relationship Specialty Start Date End Date Mary Barton APRN PCP - General Family Medicine 11/15/20 documented as of this encounter
--- OUTSIDE RECORDS SUMMARY | 2024-01-07 02:46 | XMS_ITS | Encounter Summary ---
Author Organization [facility] Address [facility] [place] [place] [address] Care Team Providers Care Software Administrator Name Role Phone Mary Barton KALLI Primary Care Provider [phone] Reason for Visit * Reason Comments Follow-up R TKA Rev 02/17/21 Encounter Details Date Type Department Care Team (Late st Contact Info) Description 05/01/2021 1:40 PM EST Office Visit [place] [phone] Juan Marie MD [facility] [place] [address] s/p R TKA revision for arthrofibrosis, 02/17/2021 Frank Social History Tobacco Use Types Packs/Day Years [...] Sign Reading Time Taken Comments Blood Pressure 130/72 05/01/2021 1:13 PM EST Pulse 78 05/01/2021 1:13 PM EST Temperature - - Respiratory Rate - - Oxygen Saturation - - Inhaled Oxygen Concentration - - Weight 109.8 kg (242 lb) 05/01/2021 1:13 PM EST Height 154.9 cm (5' 1) 05/01/2021 1:13 PM EST Body Mass Index 45.73 05/01/2021 1:13 PM EST documented in this encounter Progress Notes * Juan Marie MD - 05/01/2021 1:40 PM EST Images from the original note were not included. Department of Orthopaedics Division of Adult Joint Reconstructive Surgery May 01, 2021 I had the pleasure of evaluating Pari Lackey in clinic in conjunction with Dr. De La Torre. I have seen the patient and reviewed the history/physical and I agree with the details as written. The assessment and plan were formulated in discussion with me and I agree with them as documented. Pari Lackey presents in follow up after right total knee revision for arthrofibrosis (5-30o preop). The patient has been doing very well and is happy with the results. X-rays were reviewed and are without radiographic issue. ROM 0-100o. Continues with can and PT. Follow up in 9 months with x-rays. Juan Marie MD, MS Christian Science Practitioner, Division of Adult Reconstructive Gear Tooth Lapping Machine OperatorKing Maker of Orthopaedics Department of [place]opaedics [facility] [place] [address] [email or web address] * Che De La Torre MD - 05/01/2021 1:40 PM EST Arthroplasty/Orthopaedic History: 1. R TKA 2015- Dr. Collazo 2. R TKA synovectomy 2017- Dr. Collazo?? 3. Right TKA Revision. Dr. Marie. 02/17/2021 HPI: Pari Lackey is a very pleasant 70 y.o. year-old female and is now 3 months post right total knee revision. The patient has been doing very well. She has gone all the way up to 105 degrees of flexion in PT as well as about 5 degrees short of full extension. This is an amazing improvement from preoperatively where she had about 5 to 30 degrees of range of motion. She is very happy with her current level of functioning though she is continue to work with PT to improve it. She does have some lateral sided numbness at her anterior fritz as well as some occasional pain in the knee though overall she is improving. She denies any fever, nausea, vomiting, chills. Her incision is well-healed. ROS: Denies: fever, chills, night sweats, nausea, or vomiting BP 130/72 Pulse 78 Ht 154.9 cm (5' 1) Wt 109.8 kg (242 lb) BMI 45.73 kg/m?? Physical Exam: Well-appearing female in no acute distress. Alert and Oriented x 3 and answers all questions appropriately. The incision is well healed, with no signs of infection. Post Op Right Knee Exam: Knee ROM: Extension:5 Flexion: 100 Alignment: 0-4 degrees Neutral Stability: A/P Translation <5mm. Varus <5mm Valgus <5mm Extension La degrees or less Patella Tracking: Normal Pulses Palpable: Right PT: Yes Right DP:Yes Motor/Sensory: Distal Motor: Normal Distal Sensory: Normal Quadriceps Strength: 4 X-RAYS: Multiple radiographic views were obtained at my request and reviewed with the patient. X-rays show a well-placed prosthesis with no evidence of fracture, subsidence, loosening, or periprosthetic complication. Questionnaire Responses: [facility] Surgical Postop Visit 02/06/2021 PROMIS-10 General Health Good PROMIS-10 Quality of Life Good PROMIS-10 Physical Health Fair PROMIS-10 Mental Health Good PROMIS-10 Social Activity Good PROMIS-10 Everyday Activities Moderately PROMIS-10 Pain 4 PROMIS-10 Fatigue Moderate PROMIS-10 Social Roles Fair PROMIS-10 Anxious or Depressed Sometimes PROMIS PHYSICAL HEALTH SCORE - PROMIS MENTAL HEALTH SCORE - TKA Grade 2 Pain in other KNEE Severe Back pain at this moment Very mild No flowsheet data found. No flowsheet data found. ASSESSMENT/PLAN: Ms. Lackey is a 70 y.o. year old female status post right total knee revision. Doing well postoperatively. Continue weightbearing as tolerated and working on range of motion. We will see her back in 9 months for repeat examination at the 1 year kenneth. Patient may return to normal activities as her pain and function allow. All questions were answered. Signed: Che De La Torre MD 05/01/2021 documented in this encounter Plan of Treatment Upcoming Encounters Date Type Department Care Team (Late st Contact Info) Description 02/17/2024 1:00 PM EDT Office Visit [place] [address] Julian Kate MD [facility] [place] [address] documented as of this encounter Visit Diagnoses Diagnosis s/p R TKA revision for arthrofibrosis, 02/17/2021 Frank documented in this encounter Care Teams Software Administrator Relationship Specialty Start Date End Date Mary Barton APRN PCP - General Family Medicine 11/15/20 documented as of this encounter
--- OUTSIDE RECORDS SUMMARY | 2024-01-07 02:46 | XMS_ITS | Encounter Summary ---
Author Organization [facility] [place] [address] Care Team Providers Care Microgrinder Operator Name Role Phone Mary Barton KALLI Primary Care Provider Encounter Details Date Type Department Care Team (Late st Contact Info) Description 02/23/2021 Refill [place] [phone] Daria Castillo RN s/p R TKA revision for arthrofibrosis, 02/17/2021 [...] on file documented as of this encounter Miscellaneous Notes * Telephone Encounter - Daria Castillo RN - 02/23/2021 10:39 AM EDT Images from the original note were not included. Medication Refill Request Surgery/Injury/Provider: Frank Feliz- 02/17/21 Medication being requested:dilaudid or substitute Query: Last refill or Original Rx: Follow Up: 03/20/21 Frank How is this medication being used currently: 1 every 4 hours-6 hours Pain level: 5-6 Bowel concerns: none Other pain medications used and how: Tylenol- 1000mg tid Gabapentin- 3 times a day mobic- once aday OTHER - elevating (not above heart) xarelto for anticoag Medication Taper Plan: to early to taper, states 2 mg every 4 hours was 'knocking her out' however felt that her pain levels were reaching unmanagable levels when pushing to every 6-8 hours. She has a pill cutter available and will try 1mg every 2 hours instead of 2mg every 4 to see if this managesher pain levels while decreasing sedation. She does not want to switch to oxycodone as she states this gave her 'almost hallucinations'. Teaching done regarding: taking nonnarcotic pain medications, taking the least amount of opioid needed for the least amount of time for adequate pain management and tapering of opioids with verbalized understanding by the patient. Requested Prescription to be sent electronically to [facility] (location). Prescription prepped and pended for Radha Jenkins (provider) review. The patient knows how to contact orthopaedics if any further questions or concerns occur. documented in this encounter Plan of Treatment Upcoming Encounters Date Type Department Care Team (Late st Contact Info) Description 02/17/2024 1:00 PM EDT Office Visit [place] [address] Julian Kate MD [facility] [place] [address] documented as of this encounter Visit Diagnoses Diagnosis s/p R TKA revision for arthrofibrosis, 02/17/2021 Frank documented in this encounter Care Teams Microgrinder Operator Relationship Specialty Start Date End Date Mary Barton APRN PCP - General Family Medicine 11/15/20 documented as of this encounter
--- OUTSIDE RECORDS SUMMARY | 2024-01-07 02:46 | XMS_ITS | Encounter Summary ---
Author Organization [facility] [place] [place] [address] Care Team Providers Care Cake Decorator Name Role Phone Mary Barton APRN Primary Care Provider [phone] Encounter Details Date Type Department Care Team (Late st Contact Info) Description 02/19/2022 Notes [place] [address] Juan Marie MD [facility] [place] [address] Social History Tobacco Use Types Packs/Day Years [...] Progress Notes * Juan Marie MD - 02/19/2022 10:54 AM EDT Depuy Synthes ATTUNE Revision DSJ-2015-06: Multi-Center [...] 0 degrees Passive Flexion (measured with goniometer): 95 degrees Extension (measured with goniometer): 0 degrees Hyperextension? [X] No Pain (kenneth ONE): Mild or occasional Based on Version 1.0 [id number] - Knee Society Score(2010) To Be Completed by Surgeon documented in this encounter Plan of Treatment Upcoming Encounters Date Type Department Care Team (Late st Contact Info) Description 02/17/2024 1:00 PM EDT Office [place] [address] Julian Kate MD [facility] [place] [address] documented as of this encounter Visit Diagnoses Not on filedocumented in this encounter Care Teams Cake Decorator Relationship Specialty Start Date End Date Mary Barton APRN PCP - General Family Medicine 11/15/20 documented as of this encounter
--- OUTSIDE RECORDS SUMMARY | 2024-01-07 02:46 | XMS_ITS | Encounter Summary ---
Author Organization [facility] [place] [address] Care Team Providers Care News Camera Person Name Role Phone Mary Barton APRN Primary Care Provider [phone] Reason for Visit * Reason Comments Post Op R TKA Rev 02/17/21 Encounter Details Date Type Department Care Team (Latest Contact Info) Description 03/20/2021 12:40 PM EDT Office [place] [address] Juan Marie MD [facility] [place] [address] Arthrofibrosis of knee joint, right; s/p R TKA revision for arthrofibrosis, 02/17/2021 [...] Sign Reading Time Taken Comments Blood Pressure 123/63 03/20/2021 11:55 AM EDT Pulse 79 03/20/2021 11:55 AM EDT Temperature - - Respiratory Rate - - Oxygen Saturation - - Inhaled Oxygen Concentration - - Weight 108.9 kg (240 lb) 03/20/2021 11:55 AM EDT reported Height 157.5 cm (5' 2) 03/20/2021 11:55 AM EDT reported Body Mass Index 43.9 03/20/2021 11:55 AM EDT documented in this encounter Progress Notes * Juan Marie MD - 03/20/2021 12:40 PM EDT Images from the original note were not included. Department of Orthopaedics Division of Adult Joint Reconstructive Surgery I had the pleasure of evaluating Pari Lackey in clinic in conjunction with Jesse Gilliam PA-C as part of a shared visit. Pari Lackey presents in follow up after right total knee revision for arthrofibrosis. The patient has been doing very well and is happy with the results. Mild tip of stem pain, taking tylenol. X-rays were reviewed and are without radiographic issue. ROM 0-105o. Follow up in 6 weeks to check on ROM. Juan Marie MD, MS Chief, Division of Adult Reconstructive Strategic AnalystMedia Consultant Outside Sales of Orthopaedics Department of Orthopaedics [facility] [place] [place] [address] [email or web address] * Jesse Gilliam PA - 03/20/2021 12:40 PM EDT Arthroplasty/Orthopaedic History: 1. R TKA 2015- Dr. Collazo 2. R TKA synovectomy 2017- Dr. Collazo 3. Right TKA Revision. Dr. Marie. 02/17/2021. HPI: Pari Lackey is a very pleasant 70 y.o. year-old female and is now 1 month post right total knee revision. The patient has been doing great. The patient is not having any pain.. No fevers, chills, nausea, vomiting, or symptoms of infection. Pari has been ambulating with no assistive device and working with PT. She is not taking narcotic pain medicine. Anticoagulation status Rivaroxaban 10mg qAM for 30 days discussed stop date: Completed ROS: Denies: fever, chills, night sweats, nausea, or vomiting BP 123/63 Pulse 79 Ht 157.5 cm (5' 2) Comment: reported Wt 108.9 kg (240 lb) Comment: reported BMI 43.90 kg/m?? Physical Exam: Well-appearing female in no acute distress. Alert and Oriented x 3 and answers all questions appropriately. The incision is well healed, with no signs of infection. Post Op Right Knee Exam: Knee ROM: Extension:0 Flexion: 110 Alignment: 0-4 degrees Neutral Stability: A/P Translation <5mm. Varus <5mm Valgus <5mm Extension La degrees or less Patella Tracking: Normal Pulses Palpable: Right PT: Yes Right DP:Yes Motor/Sensory: Distal Motor: Normal Distal Sensory: Normal Quadriceps Strength: 5 X-RAYS: Multiple radiographic views were obtained at my request and reviewed with the patient. X-rays show a well-placed prosthesis with no evidence of fracture, subsidence, loosening, or periprosthetic complication. No evidence of interval complication. Questionnaire Responses: [facility] Surgical Postop Visit 02/06/2021 PROMIS-10 General Health [...] motion. We will see her back in 6 - 8 weeks for repeat examination. X-rays will be needed at that time. Patient may return to normal activities as her pain and function allow. Reassurance provided today. Her knee is doing great from a ROM stand-point. This patient was seen in conjuncture with [...] All questions were answered. Signed: CHAPINCITO BURGESS 03/20/2021 documented in this encounter Plan of Treatment Upcoming Encounters Date Type Department Care Team (Late st Contact Info) Description 02/17/2024 1:00 PM EDT Office Visit [place] [address] Julian Kate MD [facility] [place] [address] documented as of this encounter Visit Diagnoses Diagnosis Arthrofibrosis of knee joint, right s/p R TKA revision for arthrofibrosis, 02/17/2021 Frank documented in this encounter Care Teams News Camera Person Relationship Specialty Start Date End Date Mary Barton APRN PCP - General Family Medicine 11/15/20 documented as of this encounter
--- OUTSIDE RECORDS SUMMARY | 2024-01-07 02:46 | XMS_ITS | Encounter Summary ---
Author Organization [facility] [place] [address] Care Team Providers Care Sap Bw Developer Name Role Phone Mary Barton SINGLE WIRE SAW OPERATOR Primary Care Provider [phone] Encounter Details Date Type Department Care Team (Late st Contact Info) Description 03/20/2021 Notes Only [place] [address] Juan Marie MD [facility] [place] [address] Social History Tobacco Use Types Packs/Day Years [...] this encounter Progress Notes * Sr Joshua Pena - 03/20/2021 11:59 PM EDT Depuy Synthes ATTUNE Revision [id number]: Multi-Center Clinical Evaluation of the ATTUNE Revision System In Revision Total Knee Arthroplasty Knee Society Score (2011) - Surgeon Charnley Function Classification (kenneth ONE): B2 - Bilateral TKA Alignment: measured on AP standing X-ray (anatomic alignment) (kenneth ONE): Varus: <2 degrees valgus Medial/Lateral Instability: measured in full extension (kenneth ONE): Little or < 5 mm Anterior/Posterior Instability: measured at 90 degrees (kenneth ONE): None Range of motion: Flexion Contracture (kenneth ONE): 0 degrees Extensor Lag (kenneth ONE): 0 degrees Passive Flexion (measured with goniometer): 105 degrees Extension (measured with goniometer): 0 degrees Hyperextension? [X] No Pain (kenneth ONE): Mild or occasional Based on Version 1.0 [id number] - Knee Society Score(2010) To Be Completed by Surgeon documented in this encounter Plan of Treatment Upcoming Encounters Date Type Department Care Team (Late st Contact Info) Description 02/17/2024 1:00 PM EDT Office Visit Endocr[place] [address] Julian Kate MD [facility] [place] [place] [address] documented as of this encounter Visit Diagnoses Not on filedocumented in this encounter Care Teams Sap Bw Developer Relationship Specialty Start Date End Date Mary Barton APRN PCP - General Family Medicine 11/15/20 documented as of this encounter
--- OUTSIDE RECORDS SUMMARY | 2024-01-07 02:46 | XMS_ITS | Encounter Summary ---
Author Organization [facility] [place] [address] Care Team Providers Care Water Safety Instructor Name Role Phone Mary Barton APRN Primary Care Provider [phone] Encounter Details Date Type Department Care Team (Late st Contact Info) Description 08/15/2023 Orders Only [place] [phone] Juan Marie MD [facility] [place] [address] S/P revision of total knee, right Social [...] 1:00 PM EDT Office Visit [place] [phone] Julian Kate MD [facility] [place] [address] documented as of this encounter Results * RESEARCH-XR [place] Only (08/19/2023 1:09 PM EDT) Anatomical Region [...] who have questions please contact the health child care giver that requested your imaging first. ? Narrative 08/19/2023 2:46 PM EDT EXAMINATION: RESEARCH-XR [place] ONLY CLINICAL HISTORY: RT KNEE ATTUNE STUDY- rt knee AP unilateral (as entered by ordering provider in the order requisition) TECHNIQUE: [place] views the bilateral knees. COMPARISON: Bilateral knee radiographs 02/19/2022 Procedure Note Vanessa Abad MD - 08/19/2023 EXAMINATION: RESEARCH-XR [place] ONLY CLINICAL HISTORY: RT KNEE ATTUNE STUDY- rt knee AP unilateral (as entered by ordering provider inthe order requisition) TECHNIQUE: [place] views the bilateral knees. COMPARISON: Bilateral knee [...] patients who have questions please contactthe health child care giver that requested your imaging first. Juan Marie MD IMG RESEARCH ORDERA BLES documented in this encounter Visit Diagnoses Diagnosis S/P revision of total knee, right S/P revision of total knee, right documented in this encounter Care Teams Water Safety Instructor Relationship Specialty Start Date End Date Mary Barton APRN PCP - General Family Medicine 11/15/20 documented as of this encounter
--- OUTSIDE RECORDS SUMMARY | 2024-01-07 02:46 | XMS_ITS | Encounter Summary ---
Author Organization [facility] [place] [address] Care Team Providers Care Interpretive Program Coordinator Name Role Phone Mary Barton APRN Primary Care Provider [phone] Encounter Details Date Type Department Care Team (Latest Contact Info) Description 02/06/2021 12:30 PM EDT Laboratory [place] [phone] Debility; Pain of right lower extremity; Failed total knee arthroplasty, initial encounter; Arthrofibrosis of knee joint, right; Hyperglycemia Social History Tobacco Use Types Packs/Day Years [...] 1:00 PM EDT Office Visit [place] [phone] Julian Kate MD [facility] DR ENDOCRINOLOGY [place] [id number] documented as of this encounter Procedures Procedure Name Priority Date/Time Associated Diagnosis Comments TYPE AND SCREEN VALIDITY Routine 02/06/2021 2:44 PM EDT ABORH RECHECK STATUS Routine 02/06/2021 2:44 PM EDT HC C-REACTIVE PROTEIN Routine 02/06/2021 2:44 PM EDT Debility Pain of right lower extremity Failed total knee arthroplasty, initial encounter Arthrofibrosis of knee joint, right HEMOGRAM Routine 02/06/2021 2:44 PM EDT Debility Pain of right lower extremity Failed total knee arthroplasty, initial encounter Arthrofibrosis of knee joint, right DIFFERENTIAL, AUTOMATED Routine 02/07/20 2:44 PM EDT Debility Pain of right lower extremity Failed total knee arthroplasty, initial encounter Arthrofibrosis of knee joint, right HC ANTIBODY DETECTION,CAPTURE-R Routine 02/06/2021 2:44 PM EDT Debility Pain of right lower extremity Failed total knee arthroplasty, initial encounter Arthrofibrosis of knee joint, right ABO/RH TYPING Routine 02/06/2021 2:44 PM EDT Debility Pain of right lower extremity Failed total knee arthroplasty, initial encounter Arthrofibrosis of knee joint, right HC PARTIAL THROMBOPLASTIN TIME Routine 02/06/2021 2:44 PM EDT Debility Pain of right lower extremity Failed total knee arthroplasty, initial encounter Arthrofibrosis of knee joint, right HC ESR-SEDIMENTATION RATE, BLOOD Routine 02/06/2021 2:44 PM EDT Debility Pain of right lower extremity Failed total knee arthroplasty, initial encounter Arthrofibrosis of knee joint, right HC PROTHROMBIN TIME Routine 02/06/2021 2 :44 PM EDT Debility Pain of right lower extremity Failed total knee arthroplasty, initial encounter Arthrofibrosis of knee joint, right HC CBC,PLT & AUTO DIFF Routine 2:44 PM EDT Debility Pain of right lower extremity Failed total knee arthroplasty, initial encounter Arthrofibrosis of knee joint, right ANTIBODY SCREEN Routine 02/06/2021 2:44 PM EDT Debility Pain of right lower extremity Failed total knee arthroplasty, initial encounter Arthrofibrosis of knee joint, right HC PROTEIN, TOTAL, SERUM Routine 02/06/2021 2:44 PM EDT Debility Pain of right lower extremity Failed total knee arthroplasty, initial encounter Arthrofibrosis of knee joint, right HC HEMOGLOBIN A1C Routine 02/06/2021 2:4 4 PM EDT Debility Pain of right lower extremity Failed total knee arthroplasty, initial encounter Arthrofibrosis of knee joint, right Hyperglycemia HC ALBUMIN, SERUM Routine 02/06/2021 2:4 4 PM EDT Debility Pain of right lower extremity Failed total knee arthroplasty, initial encounter Arthrofibrosis of knee joint, right BASIC METABOLIC PANEL Routine 02/06/2021 2:44 PM EDT Debility Pain of right lower extremity Failed total knee arthroplasty, initial encounter Arthrofibrosis of knee joint, right documented in this encounter Results * Type and Screen Validity (02/06/2021 2:44 PM EDT) T&S only valid at [facility] LABORATORY Comment:This Type and Screen result is only valid at the [facility] Blood 02/06/2021 2:44 PM EDT 02/06/2021 2:52 PM EDT Narrative Resulting Agency Comment Spec In Lab Juan Marie MD BLOOD BANK LAB AYESHA GAYLE [facility] [place] [address] * ABORH Recheck Status (02/06/2021 2:44 PM EDT) Pathologist [place] ABORH Recheck Order Order Placed [facility] ABORH Type Recheck Complete [facility] Blood 02/06/2021 2:44 PM EDT 02/06/2021 2:52 PM EDT Narrative Resulting Agency Comment Spec In Lab Juan Marie MD BLOOD BANK LAB ORDNisha GAYLE Performing Organization Address City/[facility]/ZIP Co de Phone Number [facility] [place] [address] * Antibody screen (02/06/2021 2:44 PM EDT) Ab Screen Interp Negative [facility] Expires at [id number] on: 02/20/2021 [facility] Comment: Corrected from 02/25/21 0:00:00 EDT [Unknown] on 02/13/21 16:47:12 EDT by Myra Rivera I.. Blood 02/06/2021 2:44 PM EDT 02/06/2021 2:52 PM EDT Narrative Resulting Agency Comment Spec In Lab Juan Marie MD BLOOD BANK LAB AYESHA GAYLE Performing Organization Address City/[facility]/ZIP Co de Phone Number [facility] [place] [address] * ABO/Rh Typing (02/06/2021 2:44 PM EDT) Pathologist [facility] ABORH Type O Pos [facility] Blood 02/06/2021 2:44 PM EDT 02/06/2021 2:52 PM EDT Narrative Resulting Agency Comment Spec In Lab Juan Marie MD BLOOD BANK LAB ORDNisha GAYLE Performing Organization Address City/[facility]/ZIP Co de Phone Number [facility] [place] [address] * Differential, Automated (02/06/2021 2:44 PM EDT) Neutrophil % 57.8 % [facility] Neutrophil Absolute 2.99 1.70 - 6.10 x10(3)/[facility] LABORATORY Lymph % 31.3 % [facility] Lymphocytes Abs 1.6 0.9 - 3.2 x10(3)/[facility] LABORATORY Monocyte % 7.2 % [facility] Monocyte Abs 0.4 0.3 - 0.9 x10(3)/[facility] LABORATORY Eos % 2.9 % [facility] Eosinophils Abs 0.2 0.0 - 0.4 x10(3)/[facility] LABORATORY Basophil % 0.6 % [facility] Baso Absolute 0.0 0.0 - 0.1 x10(3)/[facility] LABORATORY Immature Gran % 0.20 % [facility] Comment: Immature granulocytes(IG's)percentage and absolute count will include metamyelocytes, myelocytes, and promyelocytes. Blood smears from CBCs yielding IG's will be scanned manually for concordance. If this scan disagrees with the automated IG or if promyelocytes are noted, a manual differential will be performed. Immature Gran Absolute 0.01 0.00 - 0.04 x10(3)/[facility] LABORATORY Blood 02/06/2021 2:44 PM EDT 02/06/2021 2:53 PM EDT Narrative Resulting Agency Comment Spec In Lab Juan Marie MD HEMATOLOGY ORDERABL ES [facility] [place] [address] * (ABNORMAL) Hemogram (02/06/2021 2:44 PM EDT) White Blood Cell 5.2 4.0 - 9.5 x10(3)/ L [facility] Red Blood Cell 4.45 4.00 - 5.21 x10(6)/ L [facility] Hemoglobin 13.0 11.7 - 15.5 gm/dL [facility] Hematocrit 41.2 35.7 - 45.8 % [facility] Mean Cell Volume 92.6 82.6 - 94.4 fL [facility] Mean Cell Hemoglobin 29.2 27.1 - 32.0 pg [facility] Mean Cell Hemoglobin Concentration 31.6(L) 31.7 - 35.0 gm/dL [facility] Platelet 143(L) 145 - 357 x10(3)/mc L [facility] RDW Standard Deviation 43.4 37.0 - 46.0 fL [facility] RDW coefficient of variation 12.8 11.5 - 14.1 % [facility] Mean Platelet Volume 11.7 7.6 - 12.9 fL [facility] NRBC% auto 0.0 % [facility] NRBC Absolute 0.000 0.000 - 0.000 x10(3)/mc L [facility] Blood 02/06/2021 2:44 PM EDT 02/06/2021 2:53 PM EDT Narrative Resulting Agency Comment Spec In Lab Juan Marie MD HEMATOLOGY ORDERABL ES [facility] [place] [id number] * (ABNORMAL) Basic Metabolic Panel (non-fasting) (02/06/2021 2:44 PM EDT) Glucose 96 65 - 199 mg/dL [facility] Comment:Diabetes: >=200 mg/d L plus symptoms Blood Urea Nitrogen 16 8 - 18 mg/dL [facility] Creatinine 0.85 0.70 - 1.20 mg/dL [facility] Sodium 146(H) 135 - 145 mmol/L [facility] Potassium 5.0 3.5 - 5.0 mmol/L [facility] Comment: Please note: ??Patients with WBC >100,000 may have falsely elevated Potassium levels. ??For accurate Potassium quantification in these patients send serum separator tube (gold top) for subsequent determinations. ??Contact the Clinical Chemistry Laboratory if there are any questions. Chloride 107 98 - 107 mmol/L [facility] Carbon Dioxide 29 22 - 31 mmol/L [facility] Anion Gap 10 5 - 15 mmol/L [facility] Calcium 9.5 8.5 - 10.5 mg/dL [facility] Est Glomerular Filtration Rate 70 >=60 mL/min/1. 73 m?? [facility] Comment: This patient? s estimated glomerular filtration rate (eGFR) is between 70 mL/min/1.73 m2 (patients with less muscle mass) and 82 mL/min/1.73 m2 (patients with more muscle mass) [...] and symptoms in addition to eGFR. Blood 02/06/2021 2:44 PM EDT 02/06/2021 2:53 PM EDT Narrative Resulting Agency Comment Spec In Lab Juan Marie MD CHEMISTRY ORDERABLE S [facility] [place] [address] * Prothrombin Time (02/06/2021 2:44 PM EDT) Prothrombin Time 11.4 9.4 - 12.5 sec [facility] International Normalization Ratio 1.0 [facility] Comment: An INR <2.0 indicates adequate procoagulant activity for hemostasis in most patients without underlying bleeding disorders, though the INR may not adequately reflect hemostatic capacity in patients with liver disease and synthetic impairment. The recommended target INR range for therapeutic anticoagulation is 2.0 ? 3.0 for most applications, though lower and higher ranges may be appropriate depending on clinical circumstances. Blood 02/06/2021 2:44 PM EDT 02/06/2021 2:53 PM EDT Narrative Resulting Agency Comment Spec In Lab Juan Marie MD HEMATOLOGY ORDERABL ES Performing Organization Address [facility] Co de Phone Number [facility] [place] [address] * APTT (02/06/2021 2:44 PM EDT) Partial Thromboplastin Time 32 25 - 37 sec [facility] Comment: The PTT is NOT appropriate for heparin monitoring. Use the Anti-Xa level for heparin monitoring (HEP UFH) or LMWH monitoring (HEP LMW). A PTT less than 37 seconds generally indicates adequate hemostasis. Blood 02/06/2021 2:44 PM EDT 02/06/2021 2:53 PM EDT Narrative Resulting Agency Comment Spec In Lab Juan Marie MD HEMATOLOGY ORDERABL ES Performing Organization Address [facility] Co de Phone Number [facility] [place] [address] * Sedimentation rate (02/06/2021 2:44 PM EDT) [facility] Sedimentation Rate Automated 19 2 - 39 mm/hr [facility] Comment: Effective May 06, 2019 new capillary photometric technology has resulted in a change in reference ranges. It is recommended that each ESR result be reviewed with its own age appropriate reference range. Blood 02/06/2021 2:44 PM EDT 02/06/2021 2:53 PM EDT Narrative Resulting Agency Comment Spec In Lab Juan Marie MD HEMATOLOGY ORDERABL ES Performing Organization Address [facility] Co de Phone Number [facility] [place] [address] * CRP, acute inflammation (02/06/2021 2:44 PM EDT) C-Reactive Protein <3.0 <=4.9 mg/L [facility] Blood 02/06/2021 2:44 PM EDT 02/06/2021 2:53 PM EDT Narrative Resulting Agency Comment Spec In Lab Juan Marie MD CHEMISTRY ORDERABLE S [facility] [place] [address] * Albumin Level (02/06/2021 2:44 PM EDT) Pathologist [facility] Albumin 4.5 3.2 - 5.2 gm/dL [facility] Blood 02/06/2021 2:44 PM EDT 02/06/2021 2:53 PM EDT Narrative Resulting Agency Comment Spec In Lab Juan Marie MD CHEMISTRY ORDERABLE S Performing Organization Address City/[facility]/ZIP Co de Phone Number [facility] [place] [address] * Protein, total (02/06/2021 2:44 PM EDT) [facility] Protein, Total 6.7 6.1 - 8.0 gm/dL [facility] Blood 02/06/2021 2:44 PM EDT 02/06/2021 2:53 PM EDT Narrative Resulting Agency Comment Spec In Lab Juan Marie MD CHEMISTRY ORDERABLE S Performing Organization Address City/[facility]/ZIP Co de Phone Number [facility] [place] [address] * Hemoglobin A1c (02/06/2021 2:44 PM EDT) Hemoglobin A1c 5.4 4.3 - 5.6 % [facility] Comment: Reference Range: 4.3 - 5.6% 5.7 - 6.4% - Increased Risk of Developing Diabetes Mellitus >= 6.5% - Consistent with diagnosis of Diabetes Mellitus In the absence of hyperglycemia (i.e. plasma glucose > 200 mg/dL) or classic symptoms of hyperglycemia a repeat measurement of HbA1c should be performed on a separate sample to confirm the diagnosis. Diagnosis and Classification of Diabetes Mellitus, Diabetes Care 2013; 36: Suppl. 1, S67-74 Estimated Average Glucose 109 mg/dL [facility] Comment: eAG equivalents for HbA1c percentages: HbA1c(%) ?eAG(mg/dL) 6.0 ?126 6.5 ?140 7.0 ?154 7.5 ?169 8.0 ?183 8.5 ?197 9.0 ?212 9.5 ?226 10.0 ? 240 Limitations: The eAG calculation has not been validated on women, individuals below 18 years old and above 70 years old, and individuals with hemoglobinopathies. Additional resources are available on the ADA website. Deonte CHRISTENSEN, Lauren J, Edwina R, et al. ??Translating the A1C assay into estimated average glucose values. ??Diabetes Care 2008:31(8):5296-6385. Blood 02/06/2021 2:44 PM EDT 02/06/2021 2:53 PM EDT Narrative Resulting Agency Comment Spec In Lab Juan Marie MD CHEMISTRY ORDERABLE S [facility] [place] [address] documented in this encounter Visit Diagnoses Diagnosis Debility Debility, unspecified Pain of right lower extremity Failed total knee arthroplasty, initial encounter Arthrofibrosis of knee joint, right Hyperglycemia Other abnormal glucose documented in this encounter Care Teams Interpretive Program Coordinator Relationship Specialty Start Date End Date Mary Barton, SYSTEMS INTEGRATION ADVISOR PCP - General Family Medicine 11/15/20 documented as of this encounter
--- OUTSIDE RECORDS SUMMARY | 2024-01-07 02:46 | XMS_ITS | Encounter Summary ---
Author Organization [facility] Address [facility] [place] [address] Care Team Providers Care Clinical Aide Name Role Phone Mary Barton WINDOWS VMWARE ENGINEER Primary Care Provider Encounter Details Date Type Department Care Team (Late st Contact Info) Description 02/20/2021 Telephone [place] [phone] Tasneem Munson MD [facility] [place] [address] Social History Tobacco Use Types Packs/Day Years [...] encounter Miscellaneous Notes * Telephone Encounter - Tasneem Munson MD - 02/20/2021 6:15 PM EDT Received a page from Sheila Ziyad. She had surgery on Saturday with Dr. Marie.(R TKA). Yesterday, she developed pain in her right fritz which she feels along anterior fritz - not at her knee. Has been doing exercises and moving around more. Does NOT have calf pain or increased pain in her operative knee. No swelling in fritz (swelling in foot but not over fritz), no erythema. Feels like it is a fritz splint. Still able to ambulate and walk with it. She has not been icing or elevating it. Recommend icing, elevating RLE and call back in 1-2 days if not improving. Tasneem Munson MD documented in this encounter Plan of Treatment Upcoming Encounters Date Type Department Care Team (Late st Contact Info) Description 02/17/2024 1:00 PM EDT Office [place] [address] Julian Kate MD [facility] [place] [address] documented as of this encounter Visit Diagnoses Not on filedocumented in this encounter Care Teams Clinical Aide Relationship Specialty Start Date End Date Mary Barton APRN PCP - General Family Medicine 11/15/20 documented as of this encounter
--- OUTSIDE RECORDS SUMMARY | 2024-01-07 02:46 | XMS_ITS | Encounter Summary ---
Author Organization [facility] [place] [address] Care Team Providers Care Java Security Architect Name Role Phone Mary Barton KALLI Primary Care Provider [phone] Reason for Visit * Auth/Cert Specialty Diagnoses / Procedures Referred By Temitope michaels Referred To Contact Diagnoses S/P revision of total knee, right failed TKA - severe arthrofibrosis Procedures PRO REVISE KNEE JOINT REPLACE, ALL PARTS TOTAL KNEE REVISION ARTHROPLASTY, COMPLETE (WRVU 27.11) MODIFIER ATTUNE REVISION FIXED BEARING KNEE SYSTEM DEPUY Referral ID Status Reason Start Date Expiration Date Visits Re quested Visits Authorized [id number] 1 1 Encounter Details Date Type Department Care Team (Late st Contact Info) Description 02/17/2021 11:32 AM EDT Anesthesia Event [place] [address] Nazario Caicedo MD [facility] [place] [address] Ksenia Serrato MD [facility] [place] [address] Anesthesia Record Procedure Summary Procedure Name Responsible Anesthesiologist Anesthesia Start Time Anesthesia Stop Time @TOTAL KNEE REVISION ARTHROPLASTY, COMPLETE (WRVU 27.11) (Right: Knee) Nazario Caicedo MD 02/17/21 1132 02/17/21 1455 Events Date Time Event Comment 02/17/2021 1006 1132 AN Verify 1132 Start 1141 Spinal 1145 An Start Data 1149 Anesthesia Ready 1222 Procedure Start 1232 Break/Relief In I assumed ca re for Break Relief before which we: 1. Identified the patient 2. Identified the responsible provider(s) 3. Reviewed the pertinent medical history 4. Discussed the surgical plan and course 5. Reviewed intra-op anesthesia management and issues during anesthesia 6. Set expectations for the relief (and/or post-procedure) period 7. Allowed opportunity for questions and acknowledgement of understanding Nelli Lewis CRNA 1236 Break/Relief Out Took over f or remainder of lunch break. [place] 1236 An Tourn Inflated 1302 Break/Relief Out 1352 An Tourn Deflated 75 minutes 1438 Procedure Stop 1444 an stop data 1454 Recovery or ICU Handoff Thelma ent care was transferred to the destination unit staff after review of the patient's medical history, current anesthetic/surgical status and plan, according to the Provider Handoff Checklist. 1455 Stop Patient brought to recovery with 6L/min O2 via face mask. Spontaneous ventilations maintained. Patient conversing with staff, reports right shoulder discomfort that she reports is similar to discomfort she has had at home after waking. Repositioned in bed with relief. Meds Name Total BUpivacaine 0.5% 20 mL Propofol 50 mg Propofol INF 950.48 mg ceFAZolin (Ancef) 2 g in dex trose 5% 100 mL (2 x 1 g/50 mL premix bags) infusion 2 g tranexamic acid (Cyklokapron ) 1,653 mg in sodium chloride 0.9% 116.53 mL infusion 1,653 mg BUpivacaine 0.75% with Dextrose 15 mg PHENYLephrine 320 mcg Lactated Ringers 1,000 mL * Agents Name O2 Air N2O Sevoflurane (et) O2 Auxiliary Flowmeter 1 * Blood No blood administrations on file. Lines, Drains, and Airways Type Details Placement Removal Incision 02/17/21; 1222; Righ t, anterior; knee; midline 02/17/21 1222 by Sangita Tran, JAMAAL (RETIRED) Peripheral IV Line - Single Lumen 02/17/21; 0940; metacarpal vein (top of hand), right; [id number] catheter system; 20 gauge, 1 in length; Kelly Ledesma RN; distraction; no longer indicated; 02/18/21; 1303 02/17/21 0940 by Analisa Torre RN 02/18/21 1303 by Pari Terry RN Urethral Catheter 02/17/21; 1200; Surgery longer than 2 hours, Physician order; indwelling double lumen catheter; latex; 14; inserted at this facility; 1; 5; 10; none; drainage bag to dependent drainage; Inserted by Carolina Lagunas RN; LDA not present upon assessment; 02/17/21; 1900 02/17/21 1200 by Sangita Tran RN 02/17/21 1900 by Klaudia Pacheco LNA documented in this encounter Social History Tobacco Use Types Packs/Day Years [...] on file documented as of this encounter OR Notes * Anesthesia Postprocedure Evaluation - Nazario Caicedo MD - 02/17/2021 3:15 PM EDT Department of Anesthesiology Post-procedure Note Patient: Pari Lackey Procedure Summary Date: 02/17/21 Room / Location: [facility] OR [address] [place] [address] MAIN OR Anesthesia Start: 1132 Anesthesia Stop: 145 Procedures: TOTAL KNEE REVISION ARTHROPLASTY, COMPLETE (WRVU 27.11) (Right Knee) MODIFIER ATTUNE REVISION FIXED BEARING KNEE SYSTEM DEPUY (N/A ) Diagnosis: (failed TKA - severe arthrofibrosis) Surgeons: Juan Marie MD Responsible Provider: Nazario Caicedo MD Anesthesia Type: spinal ASA Status: 3 All Anesthesia Providers: Anesthesiologist: Nazario Caicedo MD CAREER COACH: Sonal Bean CRNA Vitals Value Taken Time BP 115/59 02/17/21 1500 Temp 36.4 ??C (97.5 ??F) 02/17/21 1447 Pulse 59 02/17/21 1514 Resp 14 02/17/21 1514 SpO2 97 % 02/17/21 1514 Pain Level 0 02/17/21 1447 Vitals shown include unvalidated device data. Patient Location: PACU/[facility] Level of Consciousness: Awake and Alert Pain Management: Satisfactory Analgesia PONV: None Cardiovascular Status: At Baseline and Hemodynamically Stable Respiratory Status: At Baseline and Room Air Postoperative Fluid Status: Intravascular EUvolemia Possible Anesthetic Complications: NONE apparent at time of evaluation Final Primary Anesthesia Type: Spinal (The anesthetic type performed was the same as planned.) Comments: Nazario Caicedo MD * Anesthesia Procedure Notes - Nazario Caicedo MD - 02/17/2021 12:10 PM EDT Associated Order(s): Neuraxial Block Procedure: Neuraxial Block Primary Anesthetic Type: Spinal The patient was greeted. The sedation plan, its benefits, risks and alternatives were discussed with the patient. The patient has consented to the procedure. The medical history and chart were reviewed. The timeout was performed. Start time: 02/17/2021 11:32 AM End time: 02/17/2021 11:41 AM Patient Location: Block Room Patient Prep Position: Sitting Prep: Hand Hygiene, Hat, Mask, Sterile Gloves, Chlorhexidine and Patient Draped Injection technique: single-shot Skin Anesthetic Lidocaine 1% 3 ml Procedure Technique Level of needle insertion: L3-4 Needle approach: midline Needle Type: Sprotte Gauge: 22 Needle length: 3.5 in Number of attempts: 2 Medications: Date/Time: 02/17/2021 11:41 AM BUpivacaine 0.75% with Dextrose, 15 mg Events/Notes Events: None Resident/CAREER COACH: Sonal Bean CRNA Second Resident/CAREER COACH: SRNA: Fellow: Attending Physician: Nazario Caicedo MD ~~~~~~~~~~~~~~~~~~~~~~~~~~~~~~~~~~~~~~~~~~~~~~~~~~~~~~~~~~~~ * Anesthesia Procedure Notes - Ksenia Serrato MD - 02/17/2021 10:29 AM EDT Associated Order(s): Anesthesia Block Anesthesia Block Date/Time: 02/17/2021 10:25 AM Performed by: Ksenia Serrato MD Authorized by: Nazario Caicedo MD Start Time: 02/17/2021 10:20 AM End Time: 02/17/2021 10:25 AM Patient Location: Block Room The patient was greeted; the risks and benefits of the procedure were reviewed. Indication: Post-op Pain Control Post-op pain management at the request of surgeon. Block Type: Adductor canal block Laterality: Right Position: Supine Prep: Chlorhexidine, patient draped and mask, cap, sterile gloves, hand hygeine Skin Anesthetic: Skin Anesthetic: Lidocaine 1% dose: 5 Block Technique: SonoPlex 21 10 cm Ultrasound Guided: YES and in-plane Ultrasound Image Saved Ultrasound guidance was used to identify the targeted neuronal structure. Ultrasound was also used to identify needle position and to identify tissue (bone, muscle, and blood vessels) to prevent inadvertent intraneural or intravascular needle placement and injection. The spread of local anesthetic was confirmed with live ultrasound imaging.?? Single-Shot: Single-shot Local Anesthetic Volume(s) Injected for Nerve Block: BUpivacaine 0.5%, 20 mL Nerve Sensory/MotorTest: Events: no complications Staff: Fellow:: Ksenia Serrato MD Attending Physician:: Nazario Caicedo MD Notes: Patient in communication at all times. Vital signs stable. Target structures, needle, and local anesthetic spread were visualized under US guidance for the duration of the procedure. No blood aspirated, no pain on injection, no paresthesias. No needle to nerve contact was observed on ultrasound. * Anesthesia Preprocedure Evaluation - Nazario Caicedo MD - 02/17/2021 8:52 AM EDT Pre-Anesthesia Evaluation for: Pari Lackey a 70 y.o. female. Procedure(s): TOTAL KNEE REVISION ARTHROPLASTY, COMPLETE (WRVU 27.11) MODIFIER ATTUNE REVISION FIXED BEARING KNEE SYSTEM DEPUY Patient Active Problem List Diagnosis ??? Arthrofibrosis of knee joint, right ??? REBECCA on CPAP ??? Hypothyroidism ??? Adult BMI 45.0-49.9 kg/sq m ??? Failed total right knee replacement Past Medical History: Diagnosis Date ??? Anxiety depression ??? Cancer colon cancer 2003; fine until 2019 now has issues from scar tissue. ??? Cataract ??? Chronic anxiety Pt has depression; Seasonal Affective Disorder. ??? Chronic pain B knees. Occasional back pain. ??? CPAP (continuous positive airway pressure) dependence Will bring DOS ??? Dry mouth ??? Gastroesophageal reflux Occasionally; no meds as infrequent. ??? Glaucoma glaucoma suspect ??? High blood pressure Good control with meds. ??? Hyperlipidemia Good control with meds. ??? Hypertension ??? Hypothyroidism 02/06/2021 ??? Obstructive sleep apnea Past Surgical History: Procedure Laterality Date ??? JOINT REPLACEMENT right knee ??? PRO COLONOSCOPY, BIOPSY N/A 08/05/2014 COLONOSCOPY FLEXIBLE, WITH BX performed by Iggy Lopez MD at [facility] ENDOSCOPY ??? PRO COLONOSCOPY, DIAGNOSTIC N/A 08/05/2014 COLONOSCOPY, DIAGNOSTIC performed by Iggy Lopez MD at [facility] Social History Tobacco Use ??? Smoking status: Former Smoker Packs/day: 1.00 Years: 20.00 Pack years: 20.00 Types: Cigarettes Quit date: 08/05/1994 Years since quittin.5 ??? Smokeless tobacco: Never Used Substance Use Topics ??? Alcohol use: No Comment: rare Social History Substance and Sexual Activity Drug Use No Allergies Allergen Reactions ??? Sulfamethoxazole ??? Sulfamethoxazole-Trimethoprim Other (See Comments) Severe chest pain ??? Trimethoprim ??? Unknown [Unclassified Drug] Rash NICKEL ??? Aripiprazole ??? Bupropion Other (See Comments) ??? Lisinopril cough ??? Zoloft [Sertraline] ??? Nickel Medications: MAR and/or home medications have been reviewed. Physical Exam: Preprocedure Vitals Current as of 02/17/21 0852 No BP, pulse, respiration, SpO2, or temperature recorded. Height: 154.9 cm (5' 1) (12/19/20) Weight: 110.2 kg (243 lb) (12/19/20) BMI: 45.91 IBW: 47.8 kg (105 lb 4.8 oz) Airway Assessment: Mallampati: II TM distance: >3 FB Neck ROM: full Cardiovascular Assessment: Rhythm: regular Pulmonary Assessment: unlabored breathing Dental Assessment: Comment: Few missing, all slightly loose Misc Assessment: IV access: Peripheral line Last Filed Perioperative Cognitive Screening None Anesthesia Plan: ASA 3 spinal, with a(n) intravenous induction Preliminary Note 70 y.o., 110kg (BMI 46) female with arthrofibrosis of the right knee is presenting for a Right total knee revision arthroplasty. PMH significant for HTN, morbid obesity, REBECCA (with CPAP), HLD, GERD, Hypothyroidsm, anxiety, glaucoma and chronic pain. Former smoker, 20 pack year history, quit 26 years ago. Allergies: -- Sulfamethoxazole -- Sulfamethoxazole-Trimethoprim -- Other (See Comments) -- Severe chest pain -- Trimethoprim -- Unknown (Unclassified Drug) -- Rash -- NICKEL -- Aripiprazole -- Bupropion -- Other (See Comments) -- Lisinopril -- cough -- Zoloft (Sertraline) -- Nickel Anesthetic hx: No reported prior complications with anesthesia Airway hx: no records EKG: Jan 2021 NSR, T wave inversion V2, V3, V4 no prior EKGs for comparison Lab Results Component Value Date HGB 13.0 02/06/2021 PLATELET 143 (L) 02/06/2021 INR 1.0 02/06/2021 NA 146 (H) 02/06/2021 K 5.0 02/06/2021 CREATININE 0.85 02/06/2021 02/06/21 1444 ABORH O Pos Anesthetic Plan: ASA 3 Standard ASA monitors Adequate PIV access General vs spinal Preop Adductor canal block Agree w/ Fellow assessment and plan. Discussed w/ Pt who prefers spinal anesthesia + ACB. Nazario Caicedo MD Region - Other Informed Consent: Anesthetic plan and risks discussed with patient. Use of blood products discussed with patient who consented to blood products. Anesthesia Screening documented in this encounter Plan of Treatment Upcoming Encounters Date Type Department Care Team (Late st Contact Info) Description 02/17/2024 1:00 PM EDT Office Visit Endocrinology at [facility] [place] [address] Julian Kate MD [facility] [place] [address] documented as of this encounter Procedures Procedure Name Priority Date/Time Associated Diagnosis Comments ANE NEURAXIAL APS USE Routine 02/17/2021 11:41 AM EDT ANESTHESIA BLOCK Routine 02/17/2021 10:2 5 AM EDT documented in this encounter Results * Neuraxial Block (02/17/2021 11:41 AM EDT) Narrative Nazario Caicedo MD - 02/17/2021 11:41 AM EDT Nazario Caicedo MD ? 02/17/2021 12:44 PM Procedure: ?? Neuraxial Block Primary Anesthetic Type: Spinal The patient was greeted. The sedation plan, its benefits, risks and alternatives were discussed with the patient. ??The patient has consented to the procedure. ??The medical history and chart were reviewed. ??The timeout was performed. Start time: 02/17/2021 11:32 AM End time: 02/17/2021 11:41 AM Patient Location: Block Room Patient Prep Position: Sitting Prep: Hand Hygiene, Hat, Mask, Sterile Gloves, Chlorhexidine and Patient Draped Injection technique: single-shot Skin Anesthetic Lidocaine 1% ??3 ml Procedure Technique Level of needle insertion: L3-4 Needle approach: midline Needle Type: Sprotte Gauge: 22 Needle length: 3.5 in Number of attempts: 2 Medications: Date/Time: ??02/17/2021 11:41 AM BUpivacaine 0.75% with Dextrose, 15 mg Events/Notes Events: ??None Resident/CAREER COACH: ? Sonal Bean CRNA Second Resident/CAREER COACH: SRNA: ? Fellow: ? Attending Physician: ? Nazario Caicedo MD ~~~~~~~~~~~~~~~~~~~~~~~~~~~~~~~~~~~~~~~~~~~~~~~~~~~~~~~~~~~~ Nazario Caicedo MD [employer] [facility] * Anesthesia Block (02/17/2021 10:25 AM EDT) Narrative Nazario Caicedo MD - 02/17/2021 10:25 AM EDT Kesnia Serrato MD ? 02/17/2021 10:30 AM Anesthesia Block Date/Time: 02/17/2021 10:25 AM Performed by: Ksenia Serrato MD Authorized by: Nazario Caicedo MD Start Time: ??02/17/2021 10:20 AM End Time: ??02/17/2021 10:25 AM Patient Location: ??Block Room The patient was greeted; the risks and benefits of the procedure were reviewed. ?? Indication: ??Post-op Pain Control Post-op pain management at the request of surgeon. ?? Block Type: ??Adductor canal block Laterality: ??Right Position: ??Supine Prep: ??Chlorhexidine, patient draped and mask, cap, sterile gloves, hand hygeine Skin Anesthetic: ??Skin Anesthetic: ??Lidocaine 1% ??dose: ??5 Block Technique: ?? SonoPlex ?? 21 ?? 10 cm ??Ultrasound Guided: ??YES and in-plane ??Ultrasound Image Saved ?Ultrasound guidance was used to identify the targeted neuronal structure. Ultrasound was also used to identify needle position and to identify tissue (bone, muscle, and blood vessels) to prevent inadvertent intraneural or intravascular needle placement and injection. The spread of local anesthetic was confirmed with live ultrasound imaging.?Single-Shot: ??Single-shot Local Anesthetic Volume(s) Injected for Nerve Block: ?? BUpivacaine 0.5%, 20 mL Nerve Sensory/MotorTest: ??Events: no complications ?? Staff: ??Fellow:: ??Ksenia Serrato MD ??Attending Physician:: ??Nazario Caicedo MD Notes: ?? Patient in communication at all times. Vital signs stable. Target structures, needle, and local anesthetic spread were visualized under US guidance for the duration of the procedure. No blood aspirated, no pain on injection, no paresthesias. No needle to nerve contact was observed on ultrasound. Nazario Caicedo MD [employer] [facility] documented in this encounter Visit Diagnoses Not on filedocumented in this encounter Administered Medications Inactive Administered Medications - up to 3 most recent administrations Medication Order MAR Action Action Date Dose Rate Site BUpivacaine (pf) (Marcaine) (5 mg/mL) 0.5% injection Perineural, Starting on Sat02/17/21 at 1025, Until Sat02/17/21 at 1025, Anesthesia Intra-op, Routine Given 02/17/2021 10:25 AM EDT 20 mLs BUpivacaine (pf) (Sensorcaine) (7.5 mg/mL) 0.75% in dextrose 8.25% INTRATHECAL injection Intrathecal, Starting on Sat02/17/21 at 1210, Until Sat02/17/21 at 1141, Anesthesia Intra-op, Routine Given 02/17/2021 11:41 AM EDT 15 mg ceFAZolin (Ancef) 2 g in dextrose 5% 100 mL (2 x 1 g/50 mL premix bags) infusion 2 g, Intravenous, EVERY 3 HOURS, 1 dose, First dose on Sat02/17/21 at 1000, Administer over 30 Minutes, Redose after 3 hours. Total dose of ceFAZolin 2 grams, administered using two ceFAZolin 1g/50mL IV bags. Infuse each ceFAZolin 1g/50mL bag over 30 minutes (100 ml/hr) for total infusion time of 60 minutes. On the MAR, document administration of first bag using New Bag (1 of 2) MAR action for dose of 1g. On the MAR, document administration of second bag using Next Bag (2 of 2) MAR action for dose of 1g (resulting in total dose of 2g)., Intra-Operative (Intra-Procedure), Indication for (Active or Suspected): Prophylaxis Given 02/17/2021 12:14 PM EDT 2 g lactated ringers infusion Intravenous, CONTINUOUS PRN, Starting on Sat02/17/21 at 1132, Until Sat02/17/21 at 1458, Anesthesia Intra-op New Bag 02/17/2021 2:28 PM EDT New Bag 02/17/2021 11:32 AM EDT PHENYLephrine in NS (PF) (REUBEN-SYNEPHRINE) 0.8 mg/10 mL (80 mcg/mL) multi-dose injection Syrg Intravenous, PRN, Starting on Sat02/17/21 at 1219, Until Sat02/17/21 at 1458, Anesthesia Intra-op, Routine Given 02/17/2021 1:28 PM EDT 80 mcg Given 02/17/2021 1:03 PM EDT 80 mcg Given 02/17/2021 12:34 PM EDT 80 mcg propofoL (Diprivan) 10 mg/mL bolus injection (Anesthesia) Intravenous, PRN, Starting on Sat02/17/21 at 1216, Until Sat02/17/21 at 1458, Anesthesia Intra-op Given 02/17/2021 12:51 PM EDT 50 mg propofoL (Diprivan) infusion Intravenous, CONTINUOUS PRN, Starting on Sat02/17/21 at 1149, Until Sat02/17/21 at 1458, Anesthesia Intra-op, Routine Rate/Dose Change 02/17/2021 12:16 PM EDT 50 mcg/kg/min 33.06 mL/hr Rate/Dose Change 02/17/2021 11:55 AM EDT 75 mcg/kg/min 49. 59 mL/hr New Bag 02/17/2021 11:49 AM EDT 100 mcg/kg/min 66.12 mL /hr tranexamic acid (Cyklokapron) 1,653 mg in sodium chloride 0.9% 116.53 mL infusion 1,653 mg (15 mg/kg/dose ? 110.2 kg), Intravenous, ONCE, 1 dose, On Sat02/17/21 at 1000, Administer over 30 Minutes, Day of Surgery (Day of Procedure) New Bag 02/17/2021 11:47 AM EDT 1,653 mg documented in this encounter Care Teams Java Security Architect Relationship Specialty Start Date End Date Mary Barton APRN PCP - General Family Medicine 11/15/20 documented as of this encounter
--- OUTSIDE RECORDS SUMMARY | 2024-01-07 02:46 | XMS_ITS | Encounter Summary ---
Author Organization [facility] Address [facility] [place] [address] Care Team Providers Care Creative Project Manager Name Role Phone Mary Barton KALLI Primary Care Provider [phone] Reason for Visit * Auth/Cert Specialty Diagnoses / Procedures Referred By Temitope t Referred To Contact Diagnoses S/P revision of total knee, right failed TKA - severe arthrofibrosis Procedures PRO REVISE KNEE JOINT REPLACE, ALL PARTS TOTAL KNEE REVISION ARTHROPLASTY, COMPLETE (WRVU 27.11) MODIFIER ATTUNE REVISION FIXED BEARING KNEE SYSTEM DEPUY Referral ID Status Reason Start Date Expiration Date Visits Re quested Visits Authorized [id number] 1 1 Encounter Details Date Type Department Care Team (Latest Contact Info) Description 02/17/2021 8:54 AM EDT - 02/18/2021 2:59 PM EDT Hospital Encounter 3 [place] [address] Juan Marie MD [facility] [place] [address] S/P revision of total knee, right Discharge Disposition: Home with VNA Social History Tobacco Use Types Packs/Day Years [...] Sign Reading Time Taken Comments Blood Pressure 112/63 02/18/2021 7:57 AM EDT Pulse 58 02/17/2021 4:00 PM EDT Temperature 36.7 ??C (98.1 ??F) 02/18/2021 7:57 AM ED T Respiratory Rate 18 02/18/2021 7:57 AM EDT Oxygen Saturation 93% 02/18/2021 7:57 AM EDT Inhaled Oxygen Concentration - - Weight 110.2 kg (243 lb) 02/17/2021 9:34 AM EDT Height 154.9 cm (5' 1) 02/17/2021 9:34 AM EDT Body Mass Index 45.91 02/17/2021 9:34 AM EDT documented in this encounter Discharge Summaries * Rashida Olivas, SENIOR TABLEAU DEVELOPER - 02/18/2021 11:46 AM EDT Discharge Summary Patient Name: Pari Lackey Patient Age: 70 y.o. Language: Belgian Race: White Ethnicity: Not nor Admit date: 02/17/2021 Discharge date and time: 02/18/2021 Attending Physician: Juan Marie MD Discharge Physician: Juan Marie MD Follow-up Recommendations for Providers: See discharge instructions for additional details. Future Appointments Date Time Provider Department Center 03/20/2021 11:45 AM [facility] DX ROOM 3 Xray [facility] Rad 03/20/2021 12:40 PM Juan Marie MD [facility] ORTH 3C [facility] Inpatient Provider Contact Information: Juan Marie MD Orthopedics: [phone] After hours and weekends, call [facility] Marketing Production Manager, , and have the Orthopedic resident paged. Discharge Diagnoses (Hospital Problems) and Secondary Diagnoses (Chronic Problems): Active Hospital Problems Diagnosis ??? s/p R TKA revision for arthrofibrosis, 02/17/2021 Frank ? S/P revision of total knee, right Morbid obesity with BMI of 45.0-49.9, adult Resolved Hospital Problems No resolved problems to display. Active Non-Hospital Problems Diagnosis ??? Arthrofibrosis of knee joint, right ??? REBECCA on CPAP ??? Hypothyroidism ??? Adult BMI 45.0-49.9 kg/sq m ??? Failed total right knee replacement Operations/Major Procedures: 02/17/2021 Surgeon(s) and Role: * Juan Marie MD - Primary * Marcus Falk MD - Fellow * Brenda Olivera MD - Resident Procedure(s): TOTAL KNEE REVISION ARTHROPLASTY, COMPLETE (WRVU 27.11) MODIFIER ATTUNE REVISION FIXED BEARING KNEE SYSTEM DEPUY History of Presentation: Pari Lackey is a 70 y.o. female who presents with Right knee pain and stiffness after undergoing total knee replacement 2014. She underwent subsequent manipulation under anesthesia in 2017 withlittle to no improvement in her symptoms. Preoperative exam showed 0-20 5 to 30 degrees range of motion. Full inflammatory markers were drawn, the knee was aspirated, and there was no evidence of infection. Please see clinic notes in electronic medical record for full details. After discussing treatment options the patient desired to proceed with surgery. A detailed conversation regarding the risks and benefits of knee REVISION arthroplasty was had with the patient. The risks discussed includedbut were not limited to: bleeding (which may or may not require transfusion), infection, damage to nerves or blood vessels, deep venous thrombosis, pulmonary embolus, prosthetic failure, loosening, prosthetic fracture, femur patella or tibia fracture, persistent pain, need for future surgery, medical complications (including cardiac, respiratory and neurologic complications), anesthetic complications, and . Subsequent to this conversation, all of the patient???s questions were answered in great detail and informed consent was obtained for a right total knee arthroplasty revision. She received preoperative medical clearance and was felt optimized for surgery. Hospital Course: The patient was admitted via Same Day Surgery for the above operation. DVT prophylaxis: Rivaroxaban. Patient began rehab on POD#1 w/ weight bearing as tolerated of right leg remembering to use protection at all times for balance and protection. On POD#1 patient was voiding spontaneously. Wound inspected POD#1 and found to be benign. Patient did not have a bowel movement prior to discharge but waspassing flatus . By POD#1 the patient was medically stable and was cleared for safe discharge to home. POD#1 Hgb 10.4, down from 13.0 prior to surgery. Hemoglobin drop associated with anemia from a combination of acute blood loss from surgery and hemodilution as expected. No intervention necessary, patient asymptomatic. Vital Signs at Discharge: Weight: Wt Readings from Last 1 Encounters: 02/17/21 110.2 kg (243 lb) Height: Ht Readings from Last 1 Encounters: 02/17/21 154.9 cm (5' 1) HC: HC Readings from Last 1 Encounters: No data found for HC BMI: Body mass index is 45.91 kg/m??. Last value Range last 24 hrs Temperature Temp: 36.7 ??C (98.1 ??F) Temp: [36.3 ??C (97.3 ??F)-37.1 ??C (98.8 ??F)] Heart Rate Heart Rate: 58 Heart Rate: [55-59] Blood Pressure BP: 112/63 BP: (96-140)/(57-106) Respiratory Rate Resp: 18 Resp: [13-21] SpO2 SpO2: 93 % SpO2: [91 %-100 %] Art BP BP (Arterial Line): -- Functional and Cognitive Status: Patient mobilizing with use of walker, cognitively intact at baseline mental status at time of discharge. Important Lab Data: Last 3 wbc, hgb, hct plt Recent Labs 02/18/21 0154 02/06/21 1444 WBC 6.2 5.2 HGB 10.4* 13.0 HCT 32.9* 41.2 PLATELET 111* 143* Last 3 Lytes Recent Labs 02/18/21 0154 02/06/21 1444 NA 138 146* K 4.1 5.0 CL 106 107 CO2 25 29 BUN 16 16 CREATININE 0.83 0.85 Studies: XR Knee 1-2 Views Right (Generic) Result Date: 02/17/2021 EXAMINATION: XR KNEE 1-2 VIEWS RIGHT (GENERIC) CLINICAL HISTORY: s/p revision TKA TECHNIQUE: 2 views RIGHT knee COMPARISON: 12/19/2020 FINDINGS: There is a revision total knee arthroplasty. Normal alignment. Postoperative gas. No periprosthetic lucency or fracture. Status post right total knee arthroplasty without radiographic evidence of hardware complication. Thank you for letting us participate in the care of this patient. If you are a health care provider and have any questions regarding this report, please contact the number below. For patients who have questions please contact the health palliative care specialist that requested your imaging first. Pending Studies and Lab Data at Discharge: * No orders in the log * Transfusions: No Discharge Conditions/Prognosis: Stable, awake, and alert. Mobilizing as noted above, pain controlled on oral medications. [facility] to: [facility]. PHONE: [phone] FAX: [phone] Updated Allergies/ADRs: Allergies Allergen Reactions ??? Sulfamethoxazole ??? Sulfamethoxazole-Trimethoprim Other (See Comments) Severe chest pain ??? Trimethoprim ??? Unknown [Unclassified Drug] Rash NICKEL ??? Aripiprazole ??? Bupropion Other (See Comments) ??? Lisinopril cough ??? Zoloft [Sertraline] ??? Nickel Immunizations Given this Hospitalization: There is no immunization history on file for this patient. Discharge Medications: Your Medications New Medications Dose Details acetaminophen 500 mg Tab Commonly known as: Tylenol Take 2 tablets by mouth every 8 hours. Replaces: acetaminophen 650 mg Tbsr 1,000 mg Refills: 0 HYDROmorphone 2 mg Tab Commonly known as: Dilaudid Take 1 tablet by mouth every 4 hours as needed for Pain. 2 mg Quantity: 30 tablet Refills: 0 omeprazole 20 mg Cpdr Commonly known as: PriLOSEC Take 1 capsule by mouth daily for 42 days. 20 mg Quantity: 42 capsule Refills: 0 rivaroxaban 10 mg Tab Commonly known as: Xarelto Take 1 tablet by mouth daily for 30 days. 10 mg Quantity: 30 tablet Refills: 0 senna-docusate 8.6-50 mg Tab Commonly known as: Pericolace Take 2 tablets by mouth 2 times daily as needed for Constipation for up to 30 days. 2 tablet Refills: 0 Continued medications with new dosing Dose Details meloxicam 15 mg Tab Commonly known as: MOBIC You can take naproxen OR meloxicam OR ibuprofen/motrin. Take daily as needed What changed: See the new instructions. Quantity: 30 tablet Refills: 12 naproxen sodium 220 mg Tab Commonly known as: ANAPROX Take 1 tablet by mouth 2 times daily as needed. You can take naproxen OR meloxicam OR ibuprofen/motrin What changed: ?? when to take this ?? reasons to take this ?? additional instructions 220 mg Quantity: 60 tablet Refills: 12 Continued medications, unchanged Dose Details busPIRone 10 mg Tab Commonly known as: Buspar Take 20 mg by mouth 2 times daily. 20 mg Refills: 0 calcium carbonate 200 mg calcium (500 mg) Chew Commonly known as: Tums As needed Refills: 0 cholecalciferol (Vitamin D3) 400 unit Tab Commonly known as: Vitamin D3 Take 400 Units by mouth daily. 400 Units Refills: 0 docusate sodium 100 mg Cap Commonly known as: Colace Three times a day, as needed Refills: 0 escitalopram 20 mg Tab Commonly known as: Lexapro Daily. Refills: 0 fluticasone propionate 50 mcg/actuation Spsn Commonly known as: Flonase SHAKE LIQUID AND USE 2 SPRAYS IN EACH NOSTRIL DAILY Refills: 0 gabapentin 100 mg Cap Commonly known as: Neurontin 300 mg nightly. 300 mg Refills: 0 Levothyroxine 50 mcg Cap Commonly known as: Tirosint Take 50 mcg by mouth Daily. 50 mcg Refills: 0 lidocaine 5% Ptmd Commonly known as: Lidoderm Q24H Refills: 0 losartan 50 mg Tab Commonly known as: Cozaar Take 50 mg by mouth daily. 50 mg Refills: 0 polyethylene glycoL 17 gram Pwpk Commonly known as: Miralax Take 17 g by mouth daily. 17 g Refills: 0 Propylene Glycol-Glycerin 1-0.3 % Drop Artificial Tears (glycerin-peg) 1 %-0.3 % eye drops Refills: 0 rizatriptan 5 mg Tab Commonly known as: MAXALT Maxalt 5 mg tablet Take 1 tablet by oral route. Refills: 0 simvastatin 20 mg Tab Commonly known as: Zocor Take 20 mg by mouth nightly. 20 mg Refills: 0 STOPPED Medications acetaminophen 650 mg Tbsr Commonly known as: TYLENOL Replaced by: acetaminophen 500 mg Tab aspirin EC 81 mg Tbec diclofenac 1 % Gel Commonly known as: Voltaren Smoking Status at Discharge: Social History Tobacco Use Smoking Status Former Smoker ??? Packs/day: 1.00 ??? Years: 20.00 ??? Pack years: 20.00 ??? Types: Cigarettes ??? Quit date: 08/05/1994 ??? Years since quittin.5 Smokeless Tobacco Never Used Instructions for Rehab Providers or PCP: See below Instructions Given to Patient at Discharge: Patient Instructions Orthopedic Instructions Activity: 1. Your weight-bearing status is - weight bearing as tolerated of right leg. 2. Remember to use a walker or crutches as needed for balance and protection. Your physical therapist may progress you to using a cane when appropriate. 3. Flexion AND extension are important to work on at home. You should NOT place a pillow under youroperative knee. To help with extension you can place a pillow under your heel or lower leg or placed lengthwise along the operative leg. Again DO NOT place a pillow under the operated knee for comfort. Anti-coagulation: Rivaroxaban - You have been discharged on rivaroxaban (Xarelto) 10mg daily for 30days from surgery. This medication will help decrease your chance of developing a blood clot. Afteryour dose on 03/19 stop the rivaroxaban. Diet: Resume your usual diet but increase your intake of fluids and fiber while you are on narcoticpain meds to prevent constipation. Driving: None until you are cleared to do so by your Orthopedic surgeon. You should not drive whileyou are on narcotic pain meds as they can affect your judgment and reaction time. Call your surgeonwith any questions/concerns. Medications: 1. The pain medication you are on can cause constipation so increase your intake of fluids and fiber while you are on them. The stool softener, Pericolace, that has been prescribed can also be taken to facilitate a bowel movement. You can also take an xgjj-zfw-yllrbcw medication, Miralax if needed to combat constipation. 2. If you need a renewal on your narcotic pain medication, you need to give the Orthopedic clinic enough time to process your request. This can take up to three days, so plan accordingly. 3. Continue acetaminophen (Tylenol) 1,000mg every 8 hours around the clock until 02/27 (for ten daysafter your surgery). This can be effective in controlling pain along with your other medications. After that you can take Tylenol as needed per package insert. Do not take more than 3,000mg of acetaminophen in a 24 hour period. 4. You have been discharged on a short acting narcotic. You will be on this medication for a limited period of time only. Take the smallest dose possible to control your pain. As your pain improves take smaller, less frequent doses. You may break the tablet to achieve a smaller dose. 5. You may take NSAIDs (ibuprofen, motrin, aleve) sparingly for additional pain relief. Because youare being discharged on apixaban (Eliquis), taking NSAIDs will put you at increased risk for bleeding so it is important you take them sparingly if needed for additional pain control. 6. You are being discharged on a proton pump inhibitor (omeprazole). This will decrease stomach irritation. 7. Continue your home gabapentin. Shower (internal sutures): 1. You can shower but remember your activity limitations and always have a chair available for balance and protection. DO NOT submerge the dressing/incision. 2. (Mepilex) Do not let water run over the operative dressing. If it becomes wet lightly pat the dressing dry. DO NOT submerge the incision. When this operative dressing is removed you can let water gently run over the incision. Wound (Mepilex): 1. You do NOT have any external deni or sutures in place. Your sutures are internal and will be absorbed over time. 2. You have a Mepilex dressing in place. Do not lift the edge of the Mepilex dressing to inspect the incision, it will not re-adhere. Remove your operative dressing 7 days after your surgery (02/24). When it is removed you can leave the incision open to air or cover it with a light dressing. Some patients have an additional item called Prineo on their skin. If you have this it will appear as a mesh dressing directly over the incision. Please leave this in place until your follow up with orthopedics. 3. If you have lots of drainage when you get home (and it is before 02/24), remove the operative dressing and replace it with dry sterile gauze. Continue with daily dressing changes (and as needed) until the drainage stops, then remove the dressing and leave the incision open to air or lightly covered. Misc: Remember that ICE and elevation are very important after surgery to help decrease swelling and control pain. Use ICE for 20-30 minutes at a time and keep your leg elevated as much as possible. Call your doctor ([phone]) if you develop: 1. Fever greater than 100.5 2. Severe nausea or vomiting 3. Increasing pain that is not controlled by pain medications 4. Increasing redness, swelling, or drainage from incisions 5. Change in sensation FOLLOW-UP APPOINTMENTS: 1. You will have follow-up appointments at [facility] as indicated below in Future Appointment and Orders. 2. You will need to have x-rays prior to your follow-up appointmen. Please come to Radiology, desk , 1 hour BEFORE that appointment for those x-rays. Future Appointments Date Time Provider Department Center 03/20/2021 11:45 AM [facility] DX ROOM 3 Xray [facility] Rad 03/20/2021 12:40 PM Juan Marie MD [facility] ORTH [address] [place] [address] If you have questions or concerns: Saturday through Saturday, 8 AM - 5 PM, please call Dr. Juan Marie MD's office at . If it is after 5 PM, the weekend, or holidays, please call and ask to speak with theOrthopedic resident on-call. General Instructions None Future Appointments and Orders Future Appointments and Orders Future Appointments Provider Department Dept Phone 03/20/2021 11:45 AM [facility] DX ROOM 3 XRay at [facility] Arrive at: [facility] [phone] Please go to [facility] ([place] Location). 03/20/2021 12:40 PM Juan Marie MD Orthopaedics at [facility] Arrive at: [facility] [phone] Future Orders Complete By Expires Referral to Home Health - at DISCHARGE [[id number] CPT(R)] As directed Process Instructions: Scheduling Instructions: Comments: DOCUMENTATION FOR VNA SERVICES (INCLUDING THOSE PATIENTS WITH MEDICARE COVERAGE REQUIRING HOME VNA SERVICES AND/OR HOSPICE SERVICES) PATIENT'S LOCATION: Pari Lackey [address] [facility] [address] Roll Examiner's Name: Pari/pt In discussion with the attending physician, it is certified that this patient is under their care and that they, or a Nurse Practitioner,Clinical Nurse specialist or Physician Industrial Maintenance Manager who is working directly with them, had a face to face encounter that meets the physician face to face encounter requirements with this patient on 02/18/2021 The encounter with the patient was in whole, or in part, for the following medical condition, whichis the primary reason for home health care services: s/p R TKA revision In discussion with the provider, it is certified that, based on their findings, the following services are medically necessary for home health services. To provide the following care/treatments with the clinical findings supporting the need for services as follows: HOME CARE ORDERS: RN ORDERS:Assess wound or incision, vital signs, cardiopulmonary status, nutrition, hydration, elimination, meds effectiveness and management; reinforce education re health issues PT ORDERS: Continue rehab for endurance, gait stability and strength with mobility and transfers. Home safety evaluation. Home exercise program if appropriate. HOME HEALTH CARE AGENCY: [facility] PHONE: [phone] FAX: [phone] Start of care: 24 - 48 hours after discharge FOR MEDICARE ONLY: In discussion with the attending physician, it is certified that the clinical findings support thatthis patient is homebound because absences from home require considerable and taxing effort due to:unable to independently and safely manage uneven surfaces without the assistance of another person and/or assistive devices Please note that any additional orders needs or changes will need to be obtained from this patient's PCP: Mary Barton, SENIOR TABLEAU DEVELOPER [address] / [facility] [address] All VNA agencies which cover the area of patient's residence have been reviewed, either verbally janet writing, and patient/family have chosen the home health care agency noted Questions: Agency name and contact information: [facility] Patient location post discharge: Home Physical Address [address] What services are requested: Registered Nurse Physical Therapy Start date: Responsible MD post discharge contact info: PCP Primary Care Provider: Mary Kathleen Barton, SENIOR TABLEAU DEVELOPER [phone] Discharge References/Attachments Direct Oral Anticoagulants: Non-Vitamin K Antagonist (Belgian) documented in this encounter Discharge Instructions * Patient Instructions* Rashida Olivas APRN - 02/17/2021 2:59 PM EDT Orthopedic Instructions Activity: 1. Your weight-bearing status is - weight bearing as tolerated of right leg. 2. Remember to use a walker or crutches as needed for balance and protection. Your physical therapist may progress you to using a cane when appropriate. 3. Flexion AND extension are important to work on at home. You should NOT place a pillow under youroperative knee. To help with extension you can place a pillow under your heel or lower leg or placed lengthwise along the operative leg. Again DO NOT place a pillow under the operated knee for comfort. Anti-coagulation: Rivaroxaban - You have been discharged on rivaroxaban (Xarelto) 10mg daily for 30days from surgery. This medication will help decrease your chance of developing a blood clot. Afteryour dose on 03/19 stop the rivaroxaban. Diet: Resume your usual diet but increase your intake of fluids and fiber while you are on narcoticpain meds to prevent constipation. Driving: None until you are cleared to do so by your Orthopedic surgeon. You should not drive whileyou are on narcotic pain meds as they can affect your judgment and reaction time. Call your surgeonwith any questions/concerns. Medications: 1. The pain medication you are on can cause constipation so increase your intake of fluids and fiber while you are on them. The stool softener, Pericolace, that has been prescribed can also be taken to facilitate a bowel movement. You can also take an smzb-dud-ybtftoa medication, Miralax if needed to combat constipation. 2. If you need a renewal on your narcotic pain medication, you need to give the Orthopedic clinic enough time to process your request. This can take up to three days, so plan accordingly. 3. Continue acetaminophen (Tylenol) 1,000mg every 8 hours around the clock until 02/27 (for ten daysafter your surgery). This can be effective in controlling pain along with your other medications. After that you can take Tylenol as needed per package insert. Do not take more than 3,000mg of acetaminophen in a 24 hour period. 4. You have been discharged on a short acting narcotic. You will be on this medication for a limited period of time only. Take the smallest dose possible to control your pain. As your pain improves take smaller, less frequent doses. You may break the tablet to achieve a smaller dose. 5. You may take NSAIDs (ibuprofen, motrin, aleve) sparingly for additional pain relief. Because youare being discharged on apixaban (Eliquis), taking NSAIDs will put you at increased risk for bleeding so it is important you take them sparingly if needed for additional pain control. 6. You are being discharged on a proton pump inhibitor (omeprazole). This will decrease stomach irritation. 7. Continue your home gabapentin. Shower (internal sutures): 1. You can shower but remember your activity limitations and always have a chair available for balance and protection. DO NOT submerge the dressing/incision. 2. (Mepilex) Do not let water run over the operative dressing. If it becomes wet lightly pat the dressing dry. DO NOT submerge the incision. When this operative dressing is removed you can let water gently run over the incision. Wound (Mepilex): 1. You do NOT have any external deni or sutures in place. Your sutures are internal and will be absorbed over time. 2. You have a Mepilex dressing in place. Do not lift the edge of the Mepilex dressing to inspect the incision, it will not re-adhere. Remove your operative dressing 7 days after your surgery (02/24). When it is removed you can leave the incision open to air or cover it with a light dressing. Some patients have an additional item called Prineo on their skin. If you have this it will appear as a mesh dressing directly over the incision. Please leave this in place until your follow up with orthopedics. 3. If you have lots of drainage when you get home (and it is before 02/24), remove the operative dressing and replace it with dry sterile gauze. Continue with daily dressing changes (and as needed) until the drainage stops, then remove the dressing and leave the incision open to air or lightly covered. Misc: Remember that ICE and elevation are very important after surgery to help decrease swelling and control pain. Use ICE for 20-30 minutes at a time and keep your leg elevated as much as possible. Call your doctor ([phone]) if you develop: 1. Fever greater than 100.5 2. Severe nausea or vomiting 3. Increasing pain that is not controlled by pain medications 4. Increasing redness, swelling, or drainage from incisions 5. Change in sensation FOLLOW-UP APPOINTMENTS: 1. You will have follow-up appointments at [facility] as indicated below in Future Appointment and Orders. 2. You will need to have x-rays prior to your follow-up appointmen. Please come to Radiology, desk 3T, 1 hour BEFORE that appointment for those x-rays. Future Appointments Date Time Provider Department Center 03/20/2021 11:45 AM [facility] DX ROOM 3 Xray [facility] Rad 03/20/2021 12:40 PM Juan Marie MD [facility] [place] [address] [place] [address] If you have questions or concerns: Saturday through Saturday, 8 AM - 5 PM, please call Dr. Juan Marie MD's office at . If it is after 5 PM, the weekend, or holidays, please call and ask to speak with theOrthopedic resident on-call. * Attachments The following attachments cannot be sent through Care Everywhere. * Direct Oral Anticoagulants: Non-Vitamin K Antagonist (Belgian) documented in this encounter Medications at Time of Discharge Medication Sig Dispensed Refills Start Date End Date Rizatriptan (MAXALT-CLAIMS CONFIGURATION ANALYST) 5 mg Tablet, Rapid Dissolve Prn for [...] QHS 01/16/2021 fluticasone propionate (Flonase) 50 mcg/actuation [place], Suspension SHAKE LIQUID AND USE 2 SPRAYS [...] Tablet Take 400 Units by mouth daily. rivaroxaban (Xarelto) 10 mg Tablet Take 1 tablet by mouth daily for 30 days. 30 tablet 02/18/2021 03/20/2021 senna-docusate (Pericolace) 8.6-50 mg Tablet Take 2 tablets by mouth 2 times daily as needed for Constipation for up to 30 days. 0 02/18/2021 03/20/2021 omeprazole (PriLOSEC) 20 mg Capsule, Delayed Release(E.C.) Take 1 capsule by mouth daily for 42 days. 42 capsule 02/18/2021 04/01/2021 naproxen sodium (ANAPROX) 220 mg Tablet Take 1 tablet by mouth 2 times daily as needed. You can take naproxen OR meloxicam OR ibuprofen/motrin 60 tablet 12 02/18/2021 05/01/2021 HYDROmorphone (Dilaudid) 2 mg Tablet Take 1 tablet by mouth every 4 hours as needed for Pain. 30 tablet 02/18/2021 02/23/2021 docusate sodium (Colace) 100 mg Capsule Three times a day, as needed 12/01/2020 05/01/2021 rizatriptan (MAXALT) 5 mg Tablet Maxalt 5 mg tablet Take 1 tablet by oral route. 03/20/2021 documented as of this encounter Progress Notes * Pari Terry RN - 02/18/2021 1:03 PM EDT Discharge Summary Reviewed AVS summary with patient including home meds/new prescriptions, appointments, and home plan of care. Patient indicated understanding and has no questions. IV removed and belongings given back to patient. Patient accompanied by sister. * David Chan, OT - 02/18/2021 11:25 AM EDT Occupational Therapy Evaluation Patient profile: Pt seen for evaluation s/p R TKR revision for management of fibrosis. Past Medical History: Diagnosis Date ??? Anxiety depression ??? Cancer colon cancer 2002; fine until 2019 now has issues from [...] BX performed by Iggy Lopez MD at [facility] ENDOSCOPY ??? PRO COLONOSCOPY, DIAGNOSTIC N/A 08/05/2014 COLONOSCOPY, DIAGNOSTIC performed by Iggy Lopez MD at [facility] Social History: Patient lives alone in senior housing but her sister will stay with her a few days and she has a daughter available to assist. Home Setup: Patient has a tub shower and two steps with one rail to enter. DME: FWW, cane, commode, shower seat, long handled shoe horn Baseline ADL/Mobility: Patient independent with ADLS and IADLS. Patient driving and using FWW/cane. Precautions/Special Considerations: WBAT, fall risk, high risk skin breakdown Subjective: I think I will pass on the sock aid. I could do it before and I hardly wear socks. Although it was hard to do. Objective: Seen today for OT evaluation and education re: ADL/IADL manage post op. Cognitive Status/Behavior: alert, oriented to person, place, and time Range of motion, strength, coordination: Bilateral UEs are within functional limitations Sensation: Intact Activities of Daily Living: Self-feeding: N/A-Independent with set up Grooming: Patient brushing teeth sink level SBA. Upper and lower body dressing and bathing: Discussed shower safety and need for supervision and assistance for shower transfer. Discussed having home VNA review shower transfer prior to showering. Patient able to don pants in recliner Mod I. Patient unable to don right socks sitting in recliner. Patient declining sock aid as she will have her sister assist and she anticipates she will jessika able to don a sock when she will need too in the future. She does not wear socks often. Toileting: Mod I Functional Mobility: Sit to stand: SBA Ambulation: SBA with walker, 30 ft Stand to sit: SBA Balance: steady with use of walker. IADL???s: Assistance available to patient. Pain: 11/03 Education: family and patient have been educated on Role of occupational therapy/rehabilitation, Transfers, ADL, Safety, Precautions/Protocol, Functional Mobility, Activity pacing/Energy conservation, Home Management, Recommendations and Discharge planning and verbalizes understanding. Patient status, treatment, and mobility recommendations discussed with nursing. Assessment: Pt has been seen for occupational therapy evaluation. Pari Lackey presents with the following performance skill deficits and client factors: increased pain, decreased activity tolerance, decreased flexibility/ROM, decreased sitting/standing balance and compromised mobility status.These performance deficits have led to activity limitations and participation restrictions in the following areas of occupation: bathing, transfers/mobility, home management, leisure, driving and community mobility. However, despite the deficits listed above pt demonstrates the ability to perform ADLS with assistance from family and she was very receptive to above safety recommendations for ADLS/IADLS. Anticipate that pt will return home with assistance once medically ready. Do not anticipate further OT needs while hospitalized. Equipment needs at discharge: Pt has AE for home Anticipated Discharge Disposition (OT): home with home health (has support from sister who will stay with her a couple days) Plan: Monitor pt until formal d/c. Eval Date: 02/18/2021 Total Minutes, Occupational Therapy: 40 (10:45-11:25 Min E and ADL training) 2017 OT Evaluation Code Rationale: ?? Diagnosis & Pertinent Co-Morbidities affecting Plan of Care: see PMHx ?? Occupational Profile & Client History: Brief Expanded Extensive x ?? Assessment of Occupational Performance: 1-3 performance deficits 3-5 performance deficits x 5 + performance deficits ?? Clinical Decision Making: Low Moderate High x Clinical decision making of moderate complexity using standardized patient assessment instrument and measurable assessment of functional outcome. Pager: [phone] DAVID CHAN, OT 02/18/2021 Occupational Therapy Rehabilitation Department * Ese Waters, PT - 02/18/2021 10:43 AM EDT Physical Therapy Evaluation Patient profile: 70 y.o female s/p R TKA revision for management of fibrosis. Patient with the following active problems: Past Medical History: Diagnosis Date ??? Anxiety depression ??? Cancer colon cancer 2003; fine until 2020 now has issues from scar tissue. ??? [...] BX performed by Iggy Lopez MD at [facility] ??? PRO COLONOSCOPY, DIAGNOSTIC N/A 08/05/2014 COLONOSCOPY, DIAGNOSTIC performed by Iggy Lopez MD at [facility] Active Non-Hospital Problems Diagnosis ??? Arthrofibrosis of knee joint, right ??? REBECCA on CPAP ??? Hypothyroidism ??? Adult BMI 45.0-49.9 kg/sq m ??? Failed total right knee replacement Social History: Home set-up: senior housing, alone Bathroom Set-up: tub shower, got a seat but has not tried it and it is low to the ground, emergencypull cords in bathroom (and bedroom) Stairs: 2 JAY JAY with L rail when ascending followed by 1 more stair up into the apartment Baseline Mobility: mod independent with FWW Equipment at home: FWW, cane, commode, shower seat Fall history: yes, prior to starting gabapentin *She has good home support from her sister for a few days and her grandaught Precautions/Special Considerations: fall risk, skin breakdown risk, CPAP at night Lines: PIV Activity Orders: WBAT Mobility and Positioning Recommendations: ?? Pt. to utilize FWW and supervision for ambulation and transfers with nursing. ?? Please encourage up to chair for meal times as able. ?? Pt encouraged to ambulate frequently with staff, getting into the bathroom for toileting and walking out in the bruce >/= 3 times daily as able. Subjective: ???It hurts but I have been a 10/10 before and it's not that.?? Objective: Pt seen for evaluation today. Sister Meenakshi present towards the end of the shift. Pain: Number Location At rest 7/10 R knee With activity 8/10 R knee Stable vital signs on RA Mental Status: alert, oriented to person, place, and time Vision: readers Skin: dressing to R knee is clean, dry, intact, with minimal edema Musculoskeletal: ROM: 0-30 degrees with effort R LE (she reports pre op she had 0-10 degrees) Strength: at least 3-/5 R LE Sensation: neuropathic pain L LE however no numbness/tingling Bed Mobility: Supine to Sit: independent with leg director airport operations and increased time/effort Sit to Supine: not assessed Transfers: Sit to Stand: supervised up to FWW with cues for hand placement, tries to pull up from walker and uses momentum from low seat heights Stand to Sit: modified independent, good eccentric control from FWW Bed to Chair: not tested From multiple surface heights including bed, toilet, low chair and recliner chair Gait: Distance: 15' to and from bathroom, 25' to and from stairs Device used: FWW Level of assist: Modified independent Gait mechanics: swing through gait, hip hiking and circumduction compensatory strategies for management of limited knee flexion at baseine Stairs: ascended/descended 2(6) stairs with L rail and R cane, initial cues for technique, supervision provided, descended 3(4) stairs with rail and cane. Sister present for instruction in technique. 1 platform step with CGA using FWW, initial cues for technique. Balance: Sitting Static: good Sitting Dynamic: good Standing Static: good for pattie care upon using the bathroom Standing Dynamic / Gait: Fair with FWW Therex: issued handout, pt instructed in and performed ankle pumps, quad sets, gluteal sets, SAQs with cues for technique, LAQs and knee flexion with active assist to achieve 30 degrees Education/Exercise Instruction: role of PT, discharge planning, therex, car transfers Pt remained up in chair at end of session, call reilly in reach, chair alarm activated, cryocuff in place. Sister present. Rn updated. Assessment: Pari Lackey was seen today for physical therapy evaluation. Pt presents with decreased strength, decreased ROM, decreased activity tolerance, increased pain, and gait deviations. She has a high level of pain however is mobilizing with modified independence using a walker on level surfaces. Her sister was present for caregiver education around stair negotiation and observed technique (including guarding). Pari's met all goals of PT today and will remain monitored until formal discharge. Her greatest challenge will be with ROM of the R knee as she was limited pre-op to 10 degrees of knee flexion. Achieved 30 degrees today. Recommend discharge to home with home health PT once medically ready. Plan: Therapy Frequency (PT): Monitor. Patient/family understand and agree with plan as stated above. Discharge Recommendations: Based on the current findings, when medically ready for hospital discharge: -Anticipated Discharge Disposition (PT): home with home health Consult Recommendations: No other consults recommended at this time. Equipment needs: Anticipated Equipment Needs at Discharge (PT): None Patient status, treatment, and mobility recommendations discussed with nursing. Thank you for this consult. Time IN / OUT: 6568-4405 Total Minutes, Physical Therapy: 60 Billing Code: mod complex 2016 PT Evaluation Code Rationale: ?? Diagnosis & Pertinent Co-Morbidities, personal factors, and present illness affecting Plan of Care: (see above); Additional personal factors or co- morbidities that impact plan: ?? Total # of Factors: 0 1-2 3+ X ?? Examination of body system impairments, functional limitations and behaviors, and/or participation restrictions. Addressing 1-2 elements Addressing 3 + elements Addressing 4 + elements X ?? Clinical presentation: See assessment above. Stable/Uncomplicated Evolving/Fluctuating Symptoms Unstable/Unpredictable X(pain) ?? Clinical decision making of moderate complexity based on pt's functional performance as outlinedin this evaluation. * Romero Driver MD - 02/18/2021 7:51 AM EDT ORTHOPAEDIC SURGERY INPATIENT PROGRESS NOTE Patient Name: Pari Lackey Age: 70 y.o. Surgery/Issue: Right Revision Total Knee Arthroplasty for Arthrofibrosis Attending: Dr. Marie Date of surgery: 02/17/2021 SUBJECTIVE / INTERVAL HISTORY: VSS, using CPAP overnight NEON Pain well controlled. She is eating and drinking fluids, and urinating without issue Up and walking to bathroom with walker without issue Morning labs with hgb at 10.4, no pre-op hgb available Denies CP, SOB, nausea, vomiting, numbness/weakness. FOCUSED REVIEW OF SYSTEMS: as above. Active Hospital Problems Diagnosis ??? s/p R TKA revision for arthrofibrosis, 02/17/2021 Frank ??? S/P revision of total knee, right Resolved Hospital Problems No resolved problems to display. Active Non-Hospital Problems Diagnosis ??? Arthrofibrosis of knee joint, right ??? REBECCA on CPAP ??? Hypothyroidism ??? Adult BMI 45.0-49.9 kg/sq m ??? Failed total right knee replacement MEDICATIONS: ??? BUpivacaine (pf) (Marcaine) (2.5 mg/mL) 0.25% injection ??? povidone-iodine (Betadine Ophthalmic Prep) 5 % ophthalmic solution ??? cloNIDine (pf) (Duraclon) (100 mcg/mL) Epidural injection ??? ketorolac (Toradol) (30 mg/mL) injection ??? busPIRone (Buspar) tablet 20 mg ??? escitalopram (Lexapro) tablet 20 mg ??? fluticasone propionate (Flonase) 50 mcg/actuation nasal spray 2 spray ??? gabapentin (Neurontin) capsule 300 mg ??? levothyroxine (Synthroid) tablet 50 mcg ??? losartan (Cozaar) tablet 50 mg ??? simvastatin (Zocor) tablet 20 mg ??? sodium chloride 0.9 % (flush) (BD PosiFlush Normal Saline 0.9) flush 5 mL ??? sodium chloride 0.9 % (flush) (BD PosiFlush Normal Saline 0.9) flush 5-20 mL ??? lidocaine (Xylocaine) 1% (10 mg/mL) injection 3 mg ??? polyethylene glycoL (Miralax) packet 17 g ??? senna-docusate (Pericolace) 8.6-50 mg per tablet 2 tablet ??? bisacodyl EC (Dulcolax) tablet 10 mg ??? bisacodyL (Dulcolax) suppository 10 mg ??? acetaminophen (Tylenol) tablet 1,000 mg ??? ketorolac (Toradol) (30 mg/mL) injection 15 mg ??? celecoxib (CeleBREX) capsule 200 mg ??? dexamethasone (Decadron) tablet 4 mg ??? pantoprazole EC (Protonix) tablet 20 mg ??? sodium chloride 0.9% infusion ??? ceFAZolin (Ancef) 2 g in dextrose 5% 100 mL (2 x 1 g/50 mL premix bags) infusion ??? HYDROmorphone (Dilaudid) tablet 2-6 mg ??? ondansetron (Zofran) tablet 4 mg OR ondansetron (pf) (Zofran) (2 mg/mL) injection 4 mg ??? rivaroxaban (Xarelto) tablet 10 mg ??? multivitamin with minerals (Thera M) tablet 1 tablet ??? sodium chloride 0.9% 1,000 mL (02/18/21 0240) OBJECTIVE: Temp: [36.3 ??C (97.3 ??F)-37.1 ??C (98.8 ??F)] Heart Rate: [55-71] Resp: [13-21] BP: (96-140)/(57-106) Intake/Output Summary (Last 24 hours) at 02/18/2021 0750 Last data filed at 02/18/2021 0502 Gross per 24 hour Intake 2270.53 ml Output 1850 ml Net 420.53 ml Body mass index is 45.91 kg/m??. Exam: General: NAD, awake/alert CV: RRR assessed peripherally Resp: Breathing comfortably on RA RLE: Dressing c/d/i. In cryocuff. Motor intact to EHL, FHL, TA. Sensation intact in foot/calf. Brisk capillary refill distally. Lab Results Component Value Date NA 138 02/18/2021 K 4.1 02/18/2021 CL 106 02/18/2021 CO2 25 02/18/2021 BUN 16 02/18/2021 CREATININE 0.83 02/18/2021 GLUCOSE 128 02/18/2021 CALCIUM 8.3 (L) 02/18/2021 Lab Results Component Value Date WBC 6.2 02/18/2021 HGB 10.4 (L) 02/18/2021 HCT 32.9 (L) 02/18/2021 MCV 95.4 (H) 02/18/2021 PLATELET 111 (L) 02/18/2021 Lab Results Component Value Date INR 1.0 02/06/2021 ASSESSMENT / PLAN: Pari Lackey is a 70 y.o. female 1 Day Post-Op s/p R revision TKA for arthrofibrosis. Progressing well with stable vitals. Discharge pending evaluation by PT/OT on POD1. Activity: WBAT RLE Closure: Resorbable sutures Dressing: Mepilex Drain: NA Anticoagulation: Rivaroxaban 10 mg qAM for 30 days Antibiotics: periop Ancef Consults: PT/OT Dispo: pending PT/OT eval Follow-up: as scheduled Romero Driver MD 02/18/2021 Future Appointments Date Time Provider Department Center 03/20/2021 11:45 AM [facility] DX ROOM 3 Xray [facility] Rad 03/20/2021 12:40 PM Juan Marie MD [facility] [address] [place] [address] * Vanessa Perez RN - 02/18/2021 5:22 AM EDT OUTCOME EVALUATION NOTE: OUTCOME SUMMARY: No reports of SOB, chest pain, or n/v throughout shift. Pain controlled adequately with scheduled and PRN medications, see MAR. Pt A&Ox4 throughout shift. Cryo cuff to RLE clean dry and intact. Pt using BSC and bathroom to void, last PVR 200. Pt using CPAP intermittently at night. VSS, will continue to monitor. PLAN MOVING FORWARD: Pain control Mobilize Monitor PVR D/c planning INDIVIDUALIZED FALL PREVENTION INTERVENTIONS: Patient-specific fall risk factors per assessment: [current deficits]: Hospital environment, pain, pain medications Assistance [level of assistance required for transfers and ambulation]: 1 assist w/ FWW Supervision [direct monitoring required during toileting and ADLs]: Eyes on, hands on Surveillance [continuous indirect monitoring]: LIYA Justin, bed alarm * Ese Madrid RN - 02/17/2021 7:44 PM EDT 1447: Arrived from OR in bed. Attached to monitors and alarms set appropriately for patient. Cryocuff filled with cool water and in place on right knee. 1535: X-rays complete. 1550: Pt resting comfortably, denies pain or nausea. Pt able to wiggle toes, move ankles, and bend knees. Pt tolerating ice chips with no issues. IV antibiotics infusing. Pt home cpap, white bag withbelongings and cane at bedside. 1600: Respiratory paged to come set up home cpap machine. 1618: Respiratory at bedside, cpap placed on patient. 1700: Pt can feel down to her toes and is complaining of 3/10 pain. Pt given tylenol and dilaudid. Pt tolerating sips of water and crackers with no issues. 1915: Pt had dinner-tolerated with no issues. Voided on the bed sarah. 1935: Pt missing glasses. Checked bed and linen, could not find. Pt transferred to the floor. * Michelle Soni RN - 02/17/2021 6:48 PM EDT 3514-3227 : Break coverage done, vs's, patient denies pain and nausea, bladder scan 529, patient trying to void on bedpan. 1899 : Patient voided 400 cc, report given to floor. * Bria Michelle MD - 02/17/2021 5:22 PM EDT ORTHOPAEDIC SURGERY INPATIENT PROGRESS NOTE Patient Name: Pari Lackey Age: 70 y.o. Surgery/Issue: Right Revision Total Knee Arthroplasty for Arthrofibrosis Attending: Dr. Marie Date of surgery: 02/17/2021 SUBJECTIVE / INTERVAL HISTORY: Patient is doing well in PACU. Pain well controlled. She is eating and drinking fluids. She has notyet urinated or been out of bed. Denies CP, SOB, nausea, vomiting, numbness/weakness. FOCUSED REVIEW OF SYSTEMS: as above. Active Hospital Problems Diagnosis ??? s/p R TKA revision for arthrofibrosis, 02/17/2021 Frank Resolved Hospital Problems No resolved problems to display. Active Non-Hospital Problems Diagnosis ??? Arthrofibrosis of knee joint, right ??? REBECCA on CPAP ??? Hypothyroidism ??? Adult BMI 45.0-49.9 kg/sq m ??? Failed total right knee replacement MEDICATIONS: ??? acetaminophen (Tylenol) tablet 1,000 mg ??? midazolam (pf) (Versed) (1 mg/mL) injection 1 mg ??? fentaNYL (PF) (50 mcg/mL) injection 50 mcg ??? BUpivacaine (pf) (Marcaine) (2.5 mg/mL) 0.25% injection ??? povidone-iodine (Betadine Ophthalmic Prep) 5 % ophthalmic solution ??? naloxone (Narcan) (0.4 mg/mL) injection 0.04 mg ??? HYDROmorphone (Dilaudid) (2 mg/mL) multi-dose injection solution 0.2 mg OR HYDROmorphone (Dilaudid) (2 mg/mL) multi-dose injection solution 0.4 mg ??? fentaNYL (pf) (50 mcg/mL) multi-dose injection 12.5 mcg OR fentaNYL (pf) (50 mcg/mL) multi-dose injection 25 mcg ??? ondansetron (pf) (Zofran) (2 mg/mL) injection 4 mg ??? prochlorperazine (Compazine) (5 mg/mL) injection 5 mg ??? cloNIDine (pf) (Duraclon) (100 mcg/mL) Epidural injection ??? ketorolac (Toradol) (30 mg/mL) injection ??? propofoL (Diprivan) infusion ??? lactated ringers infusion ??? propofoL (Diprivan) 10 mg/mL bolus injection (Anesthesia) ??? PHENYLephrine in NS (PF) (REUBEN-SYNEPHRINE) 0.8 mg/10 mL (80 mcg/mL) multi- dose injection Syrg OBJECTIVE: Temp: [36.4 ??C (97.5 ??F)] Heart Rate: [61-71] Resp: [13-19] BP: (105-130)/(64-76) Intake/Output Summary (Last 24 hours) at 02/17/2021 1455 Last data filed at 02/17/2021 1439 Gross per 24 hour Intake 1116.53 ml Output 1150 ml Net -33.47 ml Body mass index is 45.91 kg/m??. Exam: General: NAD, awake/alert CV: RRR assessed peripherally Resp: Breathing comfortably on RA RLE: Dressing c/d/i. In cryocuff. Motor intact to EHL, FHL, TA. Sensation intact in foot/calf. Brisk capillary refill distally. Lab Results Component Value Date NA 146 (H) 02/06/2021 K 5.0 02/06/2021 CL 107 02/06/2021 CO2 29 02/06/2021 BUN 16 02/06/2021 CREATININE 0.85 02/06/2021 GLUCOSE 96 02/06/2021 CALCIUM 9.5 02/06/2021 Lab Results Component Value Date WBC 5.2 02/06/2021 HGB 13.0 02/06/2021 HCT 41.2 02/06/2021 MCV 92.6 02/06/2021 PLATELET 143 (L) 02/06/2021 Lab Results Component Value Date INR 1.0 02/06/2021 ASSESSMENT / PLAN: Pari Lackey is a 70 y.o. female Day of Surgery s/p R revision TKA for arthrofibrosis. Progressing well with stable vitals. Discharge pending evaluation by PT/OT on POD1. Activity: WBAT RLE Closure: Resorbable sutures Dressing: Mepilex Drain: NA Anticoagulation: Rivaroxaban 10 mg qAM for 30 days Antibiotics: periop Ancef Consults: PT/OT Dispo: pending PT/OT eval Follow-up: as scheduled Bria Michelle MD 02/17/2021 Future Appointments Date Time Provider Department Center 03/20/2021 11:45 AM [facility] DX ROOM 3 Xray [facility] Rad 03/20/2021 12:40 PM Juan Marie MD [facility] 3C [facility] documented in this encounter H&P Notes * Brenda Olivera MD - 02/17/2021 10:42 AM EDT Patient Name: Pari Lackey Patient Age: 70 y.o. Birthdate: 1950 Admit date: 02/17/2021 Attending Physician: Juan Marie MD 24-HOUR UPDATE Pari Lackey was seen in [facility]. No interval events or changes in health status since preoperative H+P (see EPIC). Denies angina/dyspnea/fevers or malaise within the last 14 days. All questions were answered. Stable for surgery as scheduled. documented in this encounter Miscellaneous Notes * Initial Assessments - Bianka Garza RN - 02/18/2021 11:31 AM EDT Office of Care Management Initial Assessment Bianka Garza RN reviewed record and discussed patient with Care Team. Source of Information: Team, bedside nurse, medical record, and Patient, Chart Review Introduced self/reviewed role; services accepted. Reason for Hospitalization: revision of Right TKA Last COVID test: Lab Results Component Value Date [id number] Not Detected 02/17/2021 Past medical History: Past Medical History: Diagnosis Date ??? Anxiety depression ??? Cancer colon cancer 2002; fine until 2019 now has issues from [...] ??? Hypothyroidism 02/06/2021 ??? Obstructive sleep apnea Hospitalizations Within the Past 30 Days: no previous admission in last 30 days Current Decision-Making Capacity: Self Advance Care Planning: Attempt Cardiopulmonary Resuscitation - Inpatient <no information> -Advanced Directive: No, need to discuss If AD's have not been completed Tony Echeverria would be surrogate decision maker per [place] decision[place] law. (Only good for 180 days) Any patient receiving care at [facility] must abide by [place] law. The hierarchy for surrogate decision making is: (a) Patient???s spouse, or civil union partner or common law spouse unless there is a divorce proceeding, separation agreement, or restraining order limiting that person???s relationship with the patient. (b) Any adult son or daughter of the patient. (c) Either parent of the patient. (d) Any adult brother or sister of the patient. (e) Any adult grandchild of the patient. (f) Any grandparent of the patient. (g) Any adult aunt, uncle, niece, or nephew of the patient. (h) A close friend of the patient. (i) The agent with financial power of energy attorney or a conservator appointed in accordance with RSA 464-A. (j) The guardian of the patient???s estate. Current Coping/Education/Information Needs: none Current Functional Ability: Assistive Equipment Functional Status Prior to Admission: Independent, Assistive Equipment Home Environment: Others in the home: alone (Pt's sister will be staying with her for several days after discharge.). Current Living Arrangements: home/apartment/condo (Lives in a group home housing unti.). Accessibility Concerns:has 2 JAY JAY. Current DME: walker - rolling (Also has available at home: CPAP, cane, commode and shower seat) Home Address confirmed as: [address] [facility] [place] [address] Physical address is: [address], [address], [facility] [address] Social & Family Supports: All names listed below confirmed with patient as current and correct Extended Emergency Contact Information Primary Emergency Contact: Juwan Grajeda Mobile Relation: Child Current Care Provided by: self Provides Primary Care For: no one Caregiver if needed: sibling(s), grandchild(john), adult Quality of Family relationships: supportive Community Resources being provided currently: none Behavioral Health History: none noted Substance Use/Abuse listed: Social History Tobacco Use Smoking Status Former Smoker ??? Packs/day: 1.00 ??? Years: 20.00 ??? Pack years: 20.00 ??? Types: Cigarettes ??? Quit date: 08/05/1994 ??? Years since quittin.5 0 No problems reported 1-2 Low level 3-5 Moderate level 6-8 Substantial level 9- 10 Severe level 0 to 7 points: Low risk 8 to 15 points: Medium risk 16 to 19 points: High risk 20 to 40 points: Addiction likely Other Pertinent/Service Specific Information: none Health/Prescription Coverage: Primary Insurance: MEDICARE Payor: MEDICARE / Plan: MEDICARE PART A & B / Product Type: *No Product type* / Secondary Insurance: [employer] Prescription Coverage: Yes Preferred Pharmacy: [id number] [place], [place] - [address] [place] [address] AT [facility] [address] [address] [place], [place] - [address] [facility] [address] [place] Status: Patient is a : No Primary Care Provider: Mary Barton APRN [phone] Patient/Caregiver Goals of Treatment: return home Potential Needs for Transition of Care: home health care Agency Referrals: The patient/caregivers were provided with a list of home health agencies which serve their preferred geographic location and they were educated about their right to choose where referrals are placed. Patient/Caregiver requests referral to [facility]. [facility]. PHONE: [phone] FAX: [phone] Transportation: no concerns Transportation Anticipated: family or friend will provide Concerns to be Addressed: discharge planning Assessment: Patient is admitted to ortho service for revision of Right TKA Plan: A member of the Care Management team will continue to monitor progress, follow for continuityof care and assist with transition of care planning. 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 Postoperative diagnosis: failed TKA - severe arthrofibrosis Procedure(s) (LRB): TOTAL KNEE REVISION ARTHROPLASTY, COMPLETE (WRVU 27.11) (Right) MODIFIER ATTUNE REVISION FIXED BEARING KNEE SYSTEM DEPUY (N/A) Preoperative Diagnosis: 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 Postoperative Diagnosis: Same Procedure Performed: right Total Knee Arthroplasty Revision Complete (CPT 77122) Anesthesia: Spinal , Adductor Canal Block (performed in block area) IVF: 1L of crystaloid Estimated Blood Loss: 450ml Urine Output: 700ml Drains: none Specimens removed during surgery: None Surgical Closure: Primary Closure - skin incision is completely closed without any wires, manolo, drains or other devices Complications: None apparent Tourniquet: 250mmHg for 73 minutes Tibia: Attune revision size 2, stem: [id number], 6mm offset Femur: Attune revision size 2 with 8mm augments medial and lateral. Stem: 16x 60 Patella: 32mm poly Poly: Fixed platform, 12mm, constrained Indications for the Procedure: Ms. Lackey is a 70 y.o. year old female who presents with Right knee pain and stiffness after undergoing total knee replacement 2014. She underwent subsequent manipulation under anesthesia in 2017 with little to no improvement in her symptoms. Preoperative exam showed 0-20 5 to 30 degrees range ofmotion. Full inflammatory markers were drawn, the knee was aspirated, and there was no evidence of infection. Please see clinic notes in electronic medical record for full details. After discussing treatment options the patient desired to proceed with surgery. A detailed conversation regarding the risks and benefits of knee REVISION arthroplasty was had with the patient. The risks discussed included but were not limited to: bleeding (which may or may not require transfusion), infection, damage to nerves or blood vessels, deep venous thrombosis, pulmonary embolus, prosthetic failure, loosening, prosthetic fracture, femur patella or tibia fracture, persistent pain, need for future surgery, medical complications (including cardiac, respiratory and neurologic complications), anesthetic complications, and . Subsequent to this conversation, all of the patient???s questions were answered in great detail and informed consent was obtained for a right total knee arthroplasty revision. She received preoperative medical clearance and was felt optimized for surgery. Today, she identified the right knee as the correct operative side. Intraoperative Findings: No gross evidence of infection was noted. The knee was aspirated prior to the arthrotomy and 3ml of blood colored fluid was removed. This was sent for a stat cell count whichreturned with 253 cells and 46% polys. The femur and tibia implants were well fixed. The patella was noted to have significant bony overgrowth. The poly component was removed and an extensive synovectomy was performed. The tibia / femur was revised and the knee was stable on exam at the end of the case throughout the flexion arc. Range of motion with the arthrotomy closed was 0-90o. Procedure: The patient was met in the pre-operative holding area where the appropriate site was marked, 24 hour update performed, and the pre-operative checklist completed. She was then brought to the operatingroom on a stretcher and transferred to the OR table where the above anesthetic was administered. Rafa odynes were applied to the non-operative leg. A guillen catheter was then introduced under sterile conditions. The operative site was shaved. A non- sterile tourniquet was applied high around the operative leg. Two foot posts and thigh post were placed to aid in intra-op leg positioning. A clinical time-out was held confirming the correct patient name, MRN, , planned procedure, site, antibiotic start time and agent, and outline of any surgical concerns. All in attendance were in agreement to proceed. Weight based dosing of tranexamic acid was administered prior to making an incision. Skin Preparation: The skin of the lower extremity was prepped using alcohol, chlorhexidine, and Duraprep. The prep was allowed to fully dry and sterile drapes were applied. Surgical Approach: The knee was flexed and the skin was infiltrated with 10cc of 0.25% plain marcaine prior to making the incision. Using a double knife technique the old scar was excised. Hemostasis was obtained usingelectrocautery and full thickness skin flaps were elevated medial and lateral to identify the extensor mechanism. An 18g needle was used to aspirate the knee joint and the fluid was sent for a stat cell count. The arthrotomy site was then infiltrated with the pericapsular mixture consisting of 0.25% Marcaine with epinephrine, 50mcg of clonidine and 30mg of Ketorolac. A medial parapatellar arthrotomy was performed leaving a 2mm cuff of tendon for later repair. Electrocautery was used to cauterize bleeders. A complete synovectomy was performed first on the medial side then on the lateral side. A quadricepsplasty was performed with a large velasquez scissor being cautious while sliding it up the anterior femur. A medial peel was then performed around the tibia to the mid coronal line. Due to bleeding after the synovectomy the knee was exsanguinated and the tourniquet was inflated. Patella: With the knee in extension the patella was subluxed and inspected. The patella button was noted to be well fixed to the bone and we were unable to demonstrate and sign of loosening. There was significant bony overgrowth and soft tissue coverage over at the patella button. A rongeur and Bovie were used to clear Endobutton. A caliper was used to measure the patella to be 24mm thick. A saw was used to remove the polyethylene and cement, with the residual bone measuring 12 mm. Decision was made to place a cemented polyethylene button. This is measured out to be a 32 mm dome. The lug holes were made in the patella, taking care not to perforate the volar cortex. Femur Explant: With the knee in flexion the femoral component was inspected. The interfaces between the implant and cement and the cement and bone were scrutinized. There were no visible sign of loosening. We proceeded to use the microsagittal saw and flexible osteotomes to loosen the femoral implant at the bone cement junction. After making sure all the edges were cleared, a bone tamp was used of the anterior flange to remove the femoral component. Minimal bone loss was noted at distal femoral condyle. Tibial Explant: We continued the synovectomy around the tibia circumferentially to aid in exposure. A PCL retractorwas then placed behind the tibia and it was subluxed anterior. We continued the synovectomy so thatthe entire tibial tray could be visualized. The interfaces between the implant and cement and the cement and bone were scrutinized. There were no visible sign of loosening. Microsagittal saw and flexible osteotomes were used to loosen the tibial implant at the bone cement junction. Once the edges were cleared with no concern around the flange, a bone tamp was used to remove the tibial baseplate. There is no significant bone loss noted, with the cement still adhesed to the bone. Quarter inch oste otome and reverse Eastsound curette was used to remove cement. Tibial Prep: Using a Charnley awl we were able to sound the tibial canal. We then began sequentially reaming thetibial canal up to a size 12mm reamer. With the reamer in place we then placed the proximal tibial cutting guide over the intramedullary reamer. A skim cut was then performed through the cut guide after pinning it in the appropriate position to freshen up the melisa surfaces of the proximal tibia. Our alignment was confirmed with the tibial tray. The stem required a 6mm offset to fit the tibial tray. We then placed the tibial trial with a [id number] offset stem and size 2 tibia. Happy with the reconstruction we then proceeded on with the femoral revision. ?? Femoral Prep: The knee was then flexed. Using a Charnley awl we then sounded the femoral canal. We then began sequentially reaming the femur up to a size 16mm reamer. With the reamer in place we then placed the distal femoral cutting guide. The guide was pinned in place and the distal femur was cut. The pins were removed as was the cutting guide. ?? We then placed a size 3 4 and 1 cutting guide over the rico. We placed 8 mm distal augments on the medial and lateral sides in anticipation of augmenting the distal femur. We then balanced the knee in90?? of flexion using the spacer block. The 4 in 1 cut guide was pinned. At that point we made our anterior posterior and chamfer cuts. The box cut was then made using an oscillating saw. ?? Trials: Trials were assembled on the back table and inserted into the bone. A PS 1 mm poly trial was then placed. The knee was then brought through a full range of motion. At that point the knee was found demetrius stable and we were happy with our implant selection. Final Implants: The knee was then copiously irrigated with pulse lavage to clear all bony surfaces of debris and blood. The implants were opened on the back table and assembled using the appropriate assembly tools. In a cement gun 2 bags of high viscosity cement with antibiotics was mixed using a vacuum. Cement was placed on the back surface of all implants avoiding the porous surfaces and then pressurized into the exposed bone on the tibia first. The tibial implant was placed in the appropriate orientation and impacted into the bone. Excess cement was removed. The tibia was then reduced under the femur. Cement was injected into the exposed femoral bony surfaces and then the femoral component was aligned with the bony cuts and impacted. Excess cement was removed. The tibial polyethylene trial was inserted and impacted into place.The knee was brought into extension and loaded. The patella was then irrigated with pulse lavage and the patella button with cement was placed over the pre-drilled lug holes.This was held in place with a patella clamp and excess cement was removed. The knee was flexed and any remaining cement that had been expressed was removed. Once the cement was hardened the patella clamp was removed and the knee was irrigated one last time. The knee was brought through a final range of motion which demonstrated varus/valgus and anterior/posterior stability with appropriate patella tracking. The trial poly was removed and the final implant was opened, inserted and noted to seat fully. The tibia was then reduced under the femur. The knee was then copiously irrigated with pulse lavage once again. The remaining per-capsular injection was injected into the periosteum and soft tis sues for a total of 50cc. The knee was brought through a final range of motion which demonstrated varus/valgus and anterior/posterior stability with appropriate patella tracking. Closure: The knee was placed in 60 degrees of flexion and the arthrotomy was closed initially with 0 vicryl tacking sutures which was over sewn with a #2 barbed running suture. The deep layers were closed with 0 vicryl and 0-strata fix. The superficial layers were closed with 2-0 stratafix and 2-0vicryl. The skin was closed with a running 3-0 monocryl. The skin was sealed with skin glue and pirneo. A sterile Mepilex Ag dressing was applied. A cryocuff was applied. The needle, sponge and instrument counts were correct at the end of the procedure. Attestation: Case Date: 02/17/2021 Brenda Olivera MD 02/17/2021 Post-operative Plan: (avoid IV narcotics) ?? 2 mg Dilaudid po for breakthrough pain q 3-4 hours?? PRN ?? for breakthrough pain 15 mg Toradol iv or im q 6 hours (max 4 doses) ?? 1000mg Tylenol po??? q8 hour ?? 300 mg Neurontin po qhs for 4 weeks (for insomnia) ?? Celebrex 200 mg po q 12 hours PRN while in house ?? Dexamethasone 4 mg po q 24 hours for 2 days ?? Zofran 4 mg po/iv q 8 hours PRN nausea ?? Gulilen out prior to PACU ?? Encourage voiding q 4 hours. If unable to void bladder scan and encourage to void in 30 minutes.If PVR > 400 then straight cath. ?? Perioperative prophylactic antibiotics for the next 24 hours ?? Weight bearing status of operative extremity: Weight bearing as tolerated ?? Wound closure: Subcuticular absorbable suture with skin glue ?? Dressing changes: Mepilex Silver (Do not change for 7 days then a dry sterile dressing). Prineo skin glue to fall off on it's own. ?? Follow-up Plan: As scheduled prior to surgery (approx. 5 weeks with x-rays) ?? Anticoagulation: Rivaroxaban 10mg qAM for 30 days ?? Any possible barriers to discharge: None ?? Plan for hospital stay: Standard ?? Anticipated Length of Stay: 1-2 days Implant Summary: Implant Name Type Inv. Item Serial No. Cnc Operator Machinist Lot No. LRB No. Used Action CEMENT BONE HIGH VISCOSITY 40GM SINGLE DOSE PMMA SMARTSET ([id number]) - [id number] IMPLANTS CEMENT BONE HIGH VISCOSITY 40GM SINGLE DOSE PMMA SMARTSET ([id number]) [employer] [id number] Right 3 Implanted STEM EXT KNEE [id number] TROY ([id number]) (AUTOREQ) - [id number] IMPLANTS STEM EXT KNEE [id number] TROY ([id number]) (AutoReq) [employer] [id number] Right 1 Implanted COMP FEMORAL KNEE SZ 3 RIGHT TROY CR ([id number]) (AUTOREQ) - [id number] IMPLANTS COMP FEMORAL KNEE SZ 3 RIGHT TROY CR ([id number]) (AutoReq) [employer]AY [id number] Right 1 Implanted AUGMENT FEM KNEE 8MM SIZE 3 DIST ATTUNE ([id number]) (AUTOREQ) - [id number] IMPLANTS AUGMENT FEM KNEE 8MM SIZE 3 DIST ATTUNE ([id number]) (AutoReq) [employer] MADAY ABHAY [id number] Right 1 Implanted AUGMENT FEM KNEE 8MM SIZE 3 DIST ATTUNE ([id number]) (AUTOREQ) - [id number] IMPLANTS AUGMENT FEM KNEE 8MM SIZE 3 DIST ATTUNE ([id number]) (AutoReq) [employer]HAY [id number] Right 1 Implanted ADAPTER STEM EXT KNEE 6MM ([id number]) (AUTOREQ) - [id number] IMPLANTS ADAPTER STEM EXT KNEE 6MM (1032719) (AutoReq) [employer] [id number] Right 1 Implanted STEM EXT KNEE [id number] PRSFT STR ([id number]) (AUTOREQ) - [id number] IMPLANTS STEM EXT KNEE [id number] PRSFT STR (1863953) (AutoReq) [employer] [id number] Right 1 Implanted COMP PATELLAR KNEE 32MM TROY MEDIALIZED DOMED POLY ([id number]) (AUTOREQ) - [id number] IMPLANTS COMP PATELLAR KNEE 32MM TROY MEDIALIZED DOMED POLY ([id number]) (AutoReq) [employer]ADAY ABHAY [id number] Right 1 Implanted Attune Knee System Revision Tibial Base, Fixed Bearing, Size 2 Cemented IMPLANTS [id number] Right 1 Implanted INSERT TIBIAL 12MM SZ 3 FIX POLY ATTUNE ([id number]) (AUTOREQ) - [id number] IMPLANTS INSERT TIBIAL 12MM SZ 3 FIX POLY ATTUNE ([id number]) (AutoReq) [employer]AD[employer] ABHAY [id number] Right 1 Implanted BARRIER ADHESION 5X6IN AMDOMINAL-PELVIC BIORESORBABLE ([id number]) - [id number] IMPLANTS BARRIER ADHESION 5X6IN AMDOMINAL-PELVIC BIORESORBABLE ([id number]) [employer] [id number] Right 1 Implanted Associated attestation - Juan Marie MD - 02/19/2021 9:03 PM EDT Attestation: Case Date: 02/17/2021 I was present and I participated during the entire procedure (does not need to include opening and closing). JUAN MARIE MD 02/19/2021 documented in this encounter Plan of Treatment Upcoming Encounters Date Type Department Care Team (Late st Contact Info) Description 02/17/2024 1:00 PM EDT Office [place] [address] Julian Kate MD [facility] [place] [address] documented as of this encounter Procedures Procedure Name Priority Date/Time Associated Diagnosis Comments HEMOGRAM Routine 02/18/2021 1:54 AM EDT DIFFERENTIAL, AUTOMATED Routine 02/18/2021 1:54 AM EDT LAVENDER TUBE HOLD Routine 02/18/2021 1: 54 AM EDT HC VENIPUNCTURE Routine 02/18/2021 1:54 AM EDT XR KNEE AP & LAT RIGHT Routine 02/17/2021 3:38 PM EDT HC BODY FLUID CELL CT W/DIFF STAT 02/17/2021 12:28 PM EDT MODIFIER ATTUNE REVISION FIXED BEARING KNEE SYSTEM DEPUY 02/17/2021 11:44 AM EDT failed TKA - severe arthrofibrosis Revise Knee Joint Replace, All Parts (22850) 02/17/2021 11:44 AM EDT failed TKA - severe arthrofibrosis RAPID COVID-19 PCR ([facility]) STAT 02/17/2021 9:56 AM EDT TOTAL KNEE REVISION ARTHROPLASTY, COMPLETE Routine 02/17/2021 9:06 AM EDT IMPLANTABLE DEVICES SCAN 02/17/2021 12:00 AM EDT documented in this encounter Results * (ABNORMAL) Differential, Automated (02/18/2021 1:54 AM EDT) Neutrophil % 74.5 % [facility] Neutrophil Absolute 4.59 1.70 - 6.10 x10(3)/mc L [facility] Lymph % 13.8 % [facility] Lymphocytes Abs 0.8(L) 0.9 - 3.2 x10(3)/mc L [facility] Monocyte % 9.3 % [facility] Monocyte Abs 0.6 0.3 - 0.9 x10(3)/mc L [facility] Eos % 1.8 % [facility] Eosinophils Abs 0.1 0.0 - 0.4 x10(3)/mc L [facility] Basophil % 0.3 % [facility] Baso Absolute 0.0 0.0 - 0.1 x10(3)/mc L [facility] Immature Gran % 0.30 % [facility] Comment: Immature granulocytes(IG's)percentage and absolute count will include metamyelocytes, myelocytes, and promyelocytes. Blood smears from CBCs yielding IG's will be scanned manually for concordance. If this scan disagrees with the automated IG or if promyelocytes are noted, a manual differential will be performed. Immature Gran Absolute 0.02 0.00 - 0.04 x10(3)/mc L [facility] Blood Venous Draw / Unknown 02/18/2021 1:54 AM EDT 02/18/2021 2:22 AM EDT Narrative Resulting Agency Comment Spec In Lab Rashida Olivas APRN HEMATOLOGY ORDERA BLES [facility] [place] [address] * (ABNORMAL) Hemogram (02/18/2021 1:54 AM EDT) White Blood Cell 6.2 4.0 - 9.5 x10(3)/mc L [facility] Red Blood Cell 3.45(L) 4.00 - 5.21 x10(6)/mc L [facility] Hemoglobin 10.4(L) 11.7 - 15.5 g/dL [facility] Hematocrit 32.9(L) 35.7 - 45.8 % [facility] Mean Cell Volume 95.4(H) 82.6 - 94.4 fL [facility] Mean Cell Hemoglobin 30.1 27.1 - 32.0 pg [facility] Mean Cell Hemoglobin Concentration 31.6(L) 31.7 - 35.0 g/dL [facility] Platelet 111(L) 145 - 357 x10(3)/mc L [facility] RDW Standard Deviation 45.1 37.0 - 46.0 fL [facility] RDW coefficient of variation 13.0 11.5 - 14.1 % [facility] Mean Platelet Volume 11.6 7.6 - 12.9 fL [facility] NRBC% auto 0.0 % [facility] NRBC Absolute 0.000 0.000 - 0.000 x10(3)/mc L [facility] Blood Venous Draw / Unknown 02/18/2021 1:54 AM EDT 02/18/2021 2:22 AM EDT Narrative Resulting Agency Comment Spec In Lab Rashida Olivas APRN HEMATOLOGY ORDERA BLES Performing Organization Address City/[facility]/ZIP Co de Phone Number [facility] [place] [address] * Lavender Tube HOLD (02/18/2021 1:54 AM EDT) Lavender Hold Sample in lab. [facility] Blood Venous Draw / Unknown 02/18/2021 1:54 AM EDT 02/18/2021 2:22 AM EDT Brenda Olivera MD HEMATOLOGY ORDERABLE S Performing Organization Address City/[facility]/ZIP Co de Phone Number [facility] [place] [address] * (ABNORMAL) Basic Metabolic Panel (non-fasting) (02/18/2021 1:54 AM EDT) Glucose 128 65 - 199 mg/dL [facility] Comment:Diabetes: >=200 mg/d L plus symptoms Blood Urea Nitrogen 16 8 - 18 mg/dL [facility] Creatinine 0.83 0.70 - 1.20 mg/dL [facility] Sodium 138 135 - 145 mmol/L [facility] Potassium 4.1 3.5 - 5.0 mmol/L [facility] Comment: Please note: ??Patients with WBC >100,000 may have falsely elevated Potassium levels. ??For accurate Potassium quantification in these patients send serum separator tube (gold top) for subsequent determinations. ??Contact the Clinical Chemistry Laboratory if there are any questions. Chloride 106 98 - 107 mmol/L [facility] Carbon Dioxide 25 22 - 31 mmol/L [facility] Anion Gap 7 5 - 15 mmol/L [facility] Calcium 8.3(L) 8.5 - 10.5 mg/dL [facility] Est Glomerular Filtration Rate 72 >=60 mL/min/1. 73 m?? [facility] Comment: This patient? s estimated [...] Lab Juan Marie MD CHEMISTRY ORDERABLE S [facility] [place] [address] * XR Knee 1-2 Views Right (Generic) (02/17/2021 3:38 PM EDT) Anatomical Region Laterality Modality Knee Right Digital Radiogra phy Impressions 02/17/2021 3:43 PM EDT Status post right total knee arthroplasty without radiographic evidence of hardware complication. Thank you for letting us participate in the care of this patient. ??If you are a health care provider and have any questions regarding this report, please contact the number below. ??For patients who have questions please contact the health palliative care specialist that requested your imaging first. ? Narrative 02/17/2021 3:43 PM EDT EXAMINATION: XR KNEE 1-2 VIEWS RIGHT (GENERIC) CLINICAL HISTORY: s/p revision TKA TECHNIQUE: 2 views RIGHT knee COMPARISON: 12/19/2020 FINDINGS: There is a revision total knee arthroplasty. Normal alignment. Postoperative gas. No periprosthetic lucency or fracture. Procedure Note Oswaldo Lebron MD - 02/17/2021 EXAMINATION: XR KNEE 1-2 VIEWS RIGHT (GENERIC) CLINICAL HISTORY: s/p revision TKA TECHNIQUE: 2 views RIGHT knee COMPARISON: 12/19/2020 FINDINGS: There is a revision total knee arthroplasty. Normal alignment.Postoperative gas. No periprosthetic lucency or fracture. IMPRESSION Status post right total knee arthroplasty without radiographic evidenceof hardware complication. Thank you for letting us participate in the care of this patient. If youare a health care provider and have any questions regarding this report,please contact the number below. For patients who have questions please contactthe health palliative care specialist that requested your imaging first. Juan Marie MD IMG DX ORDERABLES * Cell Count Body Fluid Knee Joint Fluid (02/17/2021 12:28 PM EDT) Body Fluid Source Knee Fl [facility] Color, Fld Red [facility] Appearance, Fld Cloudy [facility] WBC Count, Fld 253 /mcl [facility] Comment: All body fluid results should always be interpreted in light of the total clinical presentation of the patient, including clinical history, data from additional tests and other appropriate information. Called by: marino, Read back by: Rashida molina, Date-Time:02-17-21 5033. Polymorphonuclear cells BF % 46 % [facility] Comment: Polymorphonuclear cell percent and absolute values may contain Neutrophils, Eosinophils, and Basophils. Body fluid smear will be scanned manually for concordance. Mononuclear cells BF % 54 % [facility] Comment: Mononuclear cell percent and absolute values may contain Lymphocytes and Monocytes. Body fluid smear will be scanned manually for concordance. Polymorphonuclear cells BF ABS 117 /mcl [facility] Comment: Polymorphonuclear cell percent and absolute values may contain Neutrophils, Eosinophils, and Basophils. Body fluid smear will be scanned manually for concordance. Mononuclear cells BF ABS 136 /mcl [facility] Comment: Mononuclear cell percent and absolute values may contain Lymphocytes and Monocytes. Body fluid smear will be scanned manually for concordance. Knee Joint Fluid 02/17/2021 12:28 PM EDT 02/17/2021 12:36 PM EDT Narrative Resulting Agency Comment Spec In Lab Juan Marie MD BODY FLUIDS AND STO OLS ORDERABLES [facility] [place] [id number] * COVID-19 PCR (02/17/2021 9:56 AM EDT) SARS-CoV-2 RNA (Rapid) Not Detected Not Detected [facility] Comment: This result should be interpreted in combination with the clinical observations, patient history and epidemiological information. For testing of asymptomatic individuals, assay performance characteristics and clinical utility have not been evaluated. Testing for SARS-CoV-2 (Severe acute respiratory syndrome coronavirus 2, formerly known as 2019 novel coronavirus or 2019-nCoV) to aid in the diagnosis of COVID-19 is performed using the Simplexa COVID-19 Direct Assay by [employer] as authorized by the FDA issued Emergency Use Authorization (EUA). This assay is intended for In-vitro Diagnostic (IVD) use with nasopharyngeal swabs collected from individuals meeting the CDC criteria for testing. The assay is performed based on the instructions for use and additional guidance provided by the FDA. Testing is performed in the Microbiology Laboratory within the Department of Pathology and Laboratory Medicine at [facility], certified under the Clinical Laboratory Improvement Amendments of 1988 (CLIA), 42 U.S.C. section 263a, to perform high complexity tests. Assay performance has been verified according to clinical laboratory regulatory requirements. Test results are provided above. A result of Not Detected indicates that the viral RNA target is not present but does not preclude SARS-CoV-2 infection. False negative results may occur if a specimen is improperly collected, transported or handled; if amplification inhibitors are present; or if inadequate numbers of viral particles are present in the specimen. A result of Detected suggests a current or recent infection and the patient is presumed to be infected. Positive and negative predictive values for this test are highly dependent on disease prevalence. A result of Invalid indicates the inability to conclusively determine the presence or absence of SARS-CoV-2 RNA in the sample which can be due to a variety of factors. Recollection is recommended in the case of an invalid result. CDC COVID-19 criteria for testing on human specimens and clinical management guidance information are available at the CDC Coronavirus Disease 2019 (COVID-19) webpage under Information for Healthcare Professionals (https://www.cdc.gov/coronavirus/2019-ncov/hcp/index.html). Additional information about this and other EUA tests can be found in provider and patient fact sheets at the following FDA website: https://www.fda.gov/medical-devices/jxlveuyashk-nqlnxau-6730-pdaad-16-npffvjjvo- use-a mssntscrpbemq-pqxumha-cxxanqd/nawxo-klnnyqjoevy-pfun SARS-CoV-2 Source DRY CE[employer] TE[employer] Swab [facility] Nasopharyngeal Swab 02/18/20 9:56 AM EDT 02/17/2021 12:29 PM EDT Comment:Symptoms->Surveillan ce Narrative Resulting Agency Comment Spec In Lab Juan Marie MD [facility]OLOGY - [facility] ORDERABLES [facility] [place] [address] * SCAN DOC: IMPLANTABLE DEVICES (02/17/2021 12:00 AM EDT) Unknown MEDIA MGR SCAN EXT O RDR/RSLT documented in this encounter Visit Diagnoses Diagnosis S/P revision of total knee, 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 When ordered for pain, acetaminophen should be given even when other ordered pain medications are indicated. , Routine Given 02/18/2021 5:13 AM EDT 1,000 mg Given 02/17/2021 9:17 PM EDT 1,000 mg Given 02/17/2021 5:11 PM EDT 1,000 mg busPIRone (Buspar) tablet 20 mg 20 mg, Oral, 2 TIMES DAILY, First dose on Sat02/17/21 at 2100, Until Discontinued, Routine Given 02/18/2021 9:46 AM EDT 20 mg Given 02/17/2021 9:16 PM EDT 20 mg ceFAZolin (Ancef) 2 g in dextrose 5% 100 mL (2 x 1 g/50 mL premix bags) infusion 2 g, Intravenous, EVERY 8 HOURS, 3 doses, First dose on Sat02/17/21 at 1600, Last dose on Sat02/18/21 at 0800, Administer over 30 Minutes, Adjust to 4 hours from intraoperative dose. * Beta-lactam based antibiotics (eg. Ampicillin, Cefazolin, Aztreonam) should be administered within 4 hours of the preceding intraoperative dose. * Vancomycin, Fluoroquinolones, Clindamycin, Gentamicin, and Metronidazole should be administered within 8 hours of the preceding intraoperative dose. Total dose of ceFAZolin 2 grams, administered using two ceFAZolin 1g/50mL IV bags. Infuse each ceFAZolin 1g/50mL bag over 30 minutes (100 ml/hr) for total infusion time of 60 minutes. On the JUL, document administration of first bag using New Bag (1 of 2) MAR action for dose of 1g. On the JUL, document administration of second bag using Next Bag (2 of 2) MAR action for dose of 1g (resulting in total dose of 2g)., Recovery (Recovery-Hospital Unit), Indication for (Active or Suspected): Prophylaxis New Bag (1 of 2) 02/18/2021 9:44 AM EDT 2 g 100 mL/hr New Bag (1 of 2) 02/17/2021 11:05 PM EDT 2 g 100 mL /hr New Bag (1 of 2) 02/17/2021 3:52 PM EDT 1 g 100 mL/ hr celecoxib (CeleBREX) capsule 400 mg 400 mg, Oral, ONCE, 1 dose, On Sat02/17/21 at 1000, Administer on arrival to Same Day Program, Day of Surgery (Day of Procedure), Routine Given 02/17/2021 9:51 AM EDT 400 mg dexamethasone (Decadron) tablet 4 mg 4 mg, Oral, DAILY, 2 doses, First dose on 02/18/21 at 0900, Last dose on 02/19/21 at 0900, Routine Given 02/18/2021 9:49 AM EDT 4 mg escitalopram (Lexapro) tablet 20 mg 20 mg, Oral, DAILY, First dose on Sat02/18/21 at 0900, Until Discontinued, Routine Given 02/18/2021 9:46 AM EDT 20 mg fentaNYL (PF) (50 mcg/mL) injection 50 mcg 50 mcg, Intravenous, EVERY 5 MIN PRN, Starting on Sat02/17/21 at 1004, Until Sat02/17/21 at 1945, Pain, or prior to injection of local anesthetic., Hold for respiratory rate less than 8 breaths per minute. (maximum dose 200 mcg), Day of Surgery (Day of Procedure), Routine Given 02/17/2021 10:17 AM EDT 25 mcg gabapentin (Neurontin) capsule 200 mg 200 mg, Oral, EVERY MORNING, First dose on 02/18/21 at 0930, Until Discontinued, Routine Given 02/18/2021 9:54 AM EDT 200 mg gabapentin (Neurontin) capsule 200 mg 200 mg, Oral, DAILY WITH LUNCH, First dose on 02/18/21 at 1200, Until Discontinued, Routine Given 02/18/2021 12:03 PM EDT 200 mg gabapentin (Neurontin) capsule 300 mg 300 mg, Oral, NIGHTLY, First dose on Sat02/17/21 at 2100, Until Discontinued, Routine Given 02/17/2021 9:17 PM EDT 300 mg gabapentin (Neurontin) capsule 600 mg 600 mg, Oral, ONCE, 1 dose, On Sat02/17/21 at 1000, Administer on arrival in Same Day Program, Day of Surgery (Day of Procedure), Routine Given 02/17/2021 9:51 AM EDT 300 mg HYDROmorphone (Dilaudid) tablet 2-6 mg 2-6 mg, Oral, EVERY 4 HOURS PRN, Starting on Sat02/17/21 at 1707, Until 02/18/21 at 1700, Pain, Give 2 mg for mild pain (1-3), 4 mg for moderate pain (4-6) or 6 mg for severe pain (7-10) DO NOT exceed a total of 6 mg in 4 hours, Routine Given 02/18/2021 9:46 AM EDT 4 mg Given 02/17/2021 5:11 PM EDT 4 mg levothyroxine (Synthroid) tablet 50 mcg 50 mcg, Oral, EVERY MORNING, First dose on 02/18/21 at 0600, Until Discontinued, Routine Given 02/18/2021 5:13 AM EDT 50 mcg losartan (Cozaar) tablet 50 mg 50 mg, Oral, DAILY, First dose on 02/18/21 at 0900, Until Discontinued, Routine Given 02/18/2021 9:46 AM EDT 50 mg midazolam (pf) (Versed) (1 mg/mL) injection 1 mg 1 mg, Intravenous, EVERY 5 MIN PRN, Starting on Sat02/17/21 at 1004, Until Sat02/17/21 at 1945, Other, Sedation or prior to injection of local anesthetic, Hold for delirium/agitation. (Maximum dose 5 mg)., Day of Surgery (Day of Procedure), Routine Given 02/17/2021 10:15 AM EDT 1 mg multivitamin with minerals (Thera M) tablet 1 tablet 1 tablet, Oral, DAILY, First dose on 02/18/21 at 0900, Until Discontinued, Routine Given 02/18/2021 9:46 AM EDT 1 tablet ondansetron (pf) (Zofran) (2 mg/mL) injection 4 mg 4 mg, Intravenous, EVERY 8 HOURS PRN, Starting on Sat02/17/21 at 2002, Until 02/18/21 at 1700, Nausea, May repeat times one in 30 minutes if ineffective. If multiple antiemetics are ordered, use ondansetron first, Recovery (Recovery-Hospital Unit) ondansetron (Zofran) tablet 4 mg 4 mg, Oral, EVERY 8 HOURS PRN, Starting on Sat02/17/21 at 2002, Until 02/18/21 at 1700, Nausea, Vomiting, If multiple antiemetics are ordered, use ondansetron first. PO Preferred. If patient unable to take PO, may give IV if ordered. May repeat times one in 45 minutes if ineffective., Recovery (Recovery-Hospital Unit), Routine pantoprazole EC (Protonix) tablet 20 mg 20 mg, Oral, DAILY, First dose on 02/18/21 at 0900, Until Discontinued, DO NOT CRUSH OR OPEN Given 02/18/2021 9:47 AM EDT 20 mg senna-docusate (Pericolace) 8.6-50 mg per tablet 2 tablet 2 tablet, Oral, 2 TIMES DAILY, First dose on Sat02/17/21 at 2100, Until Discontinued, Routine Given 02/18/2021 9:46 AM EDT 2 tablets Given 02/17/2021 9:17 PM EDT 2 tablets simvastatin (Zocor) tablet 20 mg 20 mg, Oral, DAILY, First dose on 02/18/21 at 0900, Until Discontinued Given 02/18/2021 9:46 AM EDT 20 mg sodium chloride 0.9 % (flush) (BD PosiFlush Normal Saline 0.9) flush 5 mL 5 mL, Intravenous, 2 TIMES DAILY, First dose on Sat02/17/21 at 2100, Until Discontinued, Recovery (Recovery-Hospital Unit), Routine Given 02/18/2021 9:48 AM EDT 5 mLs Given 02/17/2021 9:19 PM EDT 5 mLs sodium chloride 0.9% infusion 1,000 mL, at 100 mL/hr, Intravenous, CONTINUOUS, Starting on Sat02/17/21 at 1545, Until 02/18/21 at 1700, Recovery (Recovery-Hospital Unit) New Bag 02/18/2021 2:40 AM EDT 1,000 mLs 100 mL/hr New Bag 02/17/2021 3:34 PM EDT 1,000 mLs 100 mL/hr documented in this encounter Active and Recently Administered Medications Times are shown in EDT. Scheduled Medication Order 02/16/2021 02/17/2021 02/18/2021 acetaminophen (Tylenol) tablet 1,000 mg 1,000 mg, Oral, EVERY 8 HOURS SCHEDULED, First dose on Sat02/17/21 at 1730, Until Discontinued, Maximum dose of acetaminophen is 4000 mg from all sources in 24 hours. When ordered for pain, acetaminophen should be given even when other ordered pain medications are indicated. , Routine 171 (Given - Provider: Ese Madrid RN)2116 (Given - Provider: Vanessa Perez RN) 0513 (Given - Provider: Vanessa Perez RN)1400 (Due) busPIRone (Buspar) tablet 20 mg 20 mg, Oral, 2 TIMES DAILY, First dose on Sat02/17/21 at 2100, Until Discontinued, Routine 2115 (Given - Provider: Vanessa Perez RN) 0946 (Given - Provider: Pari Terry RN) ceFAZolin (Ancef) 2 g in dextrose 5% 100 mL (2 x 1 g/50 mL premix bags) infusion (COMPLETED) 2 g, Intravenous, EVERY 3 HOURS, 1 [...] (Intra-Procedure), Indication for (Active or Suspected): Prophylaxis 1214 (Given - Provider: Sonal Bean CRNA) ceFAZolin (Ancef) 2 g in dextrose 5% 100 mL (2 x 1 g/50 mL premix bags) infusion (COMPLETED) 2 g, Intravenous, EVERY 8 HOURS, 3 doses, First dose on Sat02/17/21 at 1600, Last dose on Sat02/18/21 at 0800, Administer over 30 Minutes, Adjust to 4 hours from intraoperative dose. * Beta-lactam based antibiotics (eg. Ampicillin, Cefazolin, Aztreonam) should be administered within 4 hours of the preceding intraoperative dose. * Vancomycin, Fluoroquinolones, Clindamycin, Gentamicin, and Metronidazole should be administered within 8 hours of the preceding intraoperative dose. Total dose of ceFAZolin 2 grams, administered [...] 1g (resulting in total dose of 2g)., Recovery (Recovery-Hospital Unit), Indication for (Active or Suspected): Prophylaxis 1552 (New Bag (1 of 2) - Provider: Ese Madrid RN)1624 (Next Bag (2 of 2) - Provider: Ese Madrid RN)1654 (Due: Stopped - Provider: Ese Madrid RN)2305 (New Bag (1 of 2) - Provider: Vanessa Perez RN)2335 (Next Bag (2 of 2) - Provider: Vanessa Perez RN) 0005 (Stopped - Provider: Vanessa Perez RN)0944 (New Bag (1 of 2) - Provider: Pari Terry RN)1014 (Next Bag (2 of 2) - Provider: Pari Terry RN)1044 (Stopped - Provider: Pari Terry RN) celecoxib (CeleBREX) capsule 400 mg (COMPLETED) 400 mg, Oral, ONCE, 1 dose, On Sat02/17/21 at 1000, Administer on arrival to Same Day Program, Day of Surgery (Day of Procedure), Routine 0951 (Given - Provider: Analisa Torre RN) dexamethasone (Decadron) tablet 4 mg 4 mg, Oral, DAILY, 2 doses, First dose on 02/18/21 at 0900, Last dose on Sat02/19/21 at 0900, Routine 0949 (Given - Provid er: Pari Terry RN) escitalopram (Lexapro) tablet 20 mg 20 mg, Oral, DAILY, First dose on 02/18/21 at 0900, Until Discontinued, Routine 09 (Given - Provid er: Pari Terry RN) fluticasone propionate (Flonase) 50 mcg/actuation nasal spray 2 spray 2 spray, Each Nare, DAILY, First dose on 02/18/21 at 0900, Until Discontinued, Routine 0900 (Not Given - Provider: Pari Terry RN - Reason: Patient/family refused) gabapentin (Neurontin) capsule 200 mg 200 mg, Oral, EVERY MORNING, First dose on 02/18/21 at 0930, Until Discontinued, Routine 09 (Given - Provid er: Pari Terry RN) gabapentin (Neurontin) capsule 200 mg 200 mg, Oral, DAILY WITH LUNCH, First dose on Sat02/18/21 at 1200, Until Discontinued, Routine 120 (Given - Provid er: Pari Terry RN) gabapentin (Neurontin) capsule 300 mg 300 mg, Oral, NIGHTLY, First dose on Sat02/17/21 at 2100, Until Discontinued, Routine 2116 (Given - Provider: Vanessa Perez RN) gabapentin (Neurontin) capsule 600 mg (COMPLETED) 600 mg, Oral, ONCE, 1 dose, On Sat02/17/21 at 1000, Administer on arrival in Same Day Program, Day of Surgery (Day of Procedure), Routine 09 (Given - Provider: Analisa Torre RN - Comment: Pt. took 200 mg at home this am already) levothyroxine (Synthroid) tablet 50 mcg 50 mcg, Oral, EVERY MORNING, First dose on 02/18/21 at 0600, Until Discontinued, Routine 05 (Given - Provid er: Vanessa Perez RN) losartan (Cozaar) tablet 50 mg 50 mg, Oral, DAILY, First dose on 02/18/21 at 0900, Until Discontinued, Routine 09 (Given - Provid er: Pari Terry RN) multivitamin with minerals (Thera M) tablet 1 tablet 1 tablet, Oral, DAILY, First dose on 02/18/21 at 0900, Until Discontinued, Routine 945 (Given - Provid er: Pari Terry RN) pantoprazole EC (Protonix) tablet 20 mg 20 mg, Oral, DAILY, First dose on 02/18/21 at 0900, Until Discontinued, DO NOT CRUSH OR OPEN 0947 (Given - Provid er: Pari Terry RN) polyethylene glycoL (Miralax) packet 17 g 17 g, Oral, 2 TIMES DAILY, First dose on Sat02/17/21 at 2100, Until Discontinued, Routine 2116 (Not Given - Provider: Vanessa Perez RN - Reason: Patient/family refused) 0947 (Not Given - Provider: Pari Terry RN - Reason: Patient/family refused) rivaroxaban (Xarelto) tablet 10 mg 10 mg, Oral, EVERY EVENING, First dose on 02/18/21 at 1500, Until Discontinued, Start 24 hours after arriving at PACU, Routine, Restricted anticoagulant, choose the most appropriate response: Approved indication of hip/knee replacement DVT prophylaxis senna-docusate (Pericolace) 8.6-50 mg per tablet 2 tablet 2 tablet, Oral, 2 TIMES DAILY, First dose on Sat02/17/21 at 2100, Until Discontinued, Routine 2116 (Given - Provider: Vanessa Perez RN) 0946 (Given - Provider: Pari Terry RN) simvastatin (Zocor) tablet 20 mg 20 mg, Oral, DAILY, First dose on 02/18/21 at 0900, Until Discontinued 0946 (Given - Provid er: Pari Terry RN) sodium chloride 0.9 % (flush) (BD PosiFlush Normal Saline 0.9) flush 5 mL 5 mL, Intravenous, 2 TIMES DAILY, First dose on Sat02/17/21 at 2100, Until Discontinued, Recovery (Recovery-Hospital Unit), Routine 2118 (Given - Provider: Vanessa Perez RN) 0948 (Given - Provider: Pari Terry RN) tranexamic acid (Cyklokapron) 1,653 mg in sodium chloride 0.9% 116.53 mL infusion (COMPLETED) 1,653 mg (15 mg/kg/dose ? 110.2 kg), Intravenous, ONCE, 1 dose, On Sat02/17/21 at 1000, Administer over 30 Minutes, Day of Surgery (Day of Procedure) 1147 (New Bag - Provider: Sonal Bean CRNA) Continuous Medication Order 02/16/2021 02/17/2021 02/18/2021 sodium chloride 0.9% infusion 1,000 mL, at 100 mL/hr, Intravenous, CONTINUOUS, Starting on Sat02/17/21 at 1545, Until 02/18/21 at 1700, Recovery (Recovery-Hospital Unit) 1534 (New Bag - Provider: Ese Madrid RN) 0240 (New Bag - Provider: Daev Jones RN) PRN Medication Order 02/16/2021 02/17/2021 02/18/2021 bisacodyL (Dulcolax) suppository 10 mg 10 mg, Rectal, DAILY PRN, Starting on Sat02/17/21 at 2002, Until 02/18/21 at 1700, Constipation, Administer if needed per patient's routine or if no bowel movement within 48 hours to achieve: (1) One bowel movement every 48 hours, AND (2) without straining. If multiple PRN bowel medications ordered, start with lactulose, then oral bisacodyl, then bisacodyl suppository. Multiple medications may be given concomitantly for constipation., Routine bisacodyl EC (Dulcolax) tablet 10 mg 10 mg, Oral, 2 TIMES DAILY PRN, Starting on Sat02/17/21 at 2002, Until 02/18/21 at 1700, Constipation, DO NOT CRUSH OR OPEN Administer if needed per patient's routine or if no bowel movement within 48 hours to achieve: (1) One bowel movement every 48 hours, AND (2) without straining. If multiple PRN bowel medications ordered, start with lactulose, then oral bisacodyl, then bisacodyl suppository. Multiple medications may be given concomitantly for constipation., Routine BUpivacaine (pf) (Marcaine) (2.5 mg/mL) 0.25% injection (CANCELED) ONCE PRN, Starting on Sat02/17/21 at 1222, Until 02/18/21 at 1700, Intra-Operative (Intra-Procedure), Routine 1222 (Given - Provider: Juan Marie MD)1430 (Given - Provider: Juan Marie MD) celecoxib (CeleBREX) capsule 200 mg 200 mg, Oral, 2 TIMES DAILY PRN, Starting on Sat02/17/21 at 2003, Until 02/18/21 at 1700, Pain, Routine cloNIDine (pf) (Duraclon) (100 mcg/mL) Epidural injection (CANCELED) ONCE PRN, Starting on Sat02/17/21 at 1430, Until 02/18/21 at 1700, Intra-Operative (Intra-Procedure), Routine 1430 (Given - Provider: Juan Marie MD) fentaNYL (PF) (50 mcg/mL) injection 50 mcg (CANCELED) 50 mcg, Intravenous, EVERY 5 MIN PRN, Starting on Sat02/17/21 at 1004, Until Sat02/17/21 at 1945, Pain, or prior to injection of local anesthetic., Hold for respiratory rate less than 8 breaths per minute. (maximum dose 200 mcg), Day of Surgery (Day of Procedure), Routine 1017 (Given - Provider: Analisa Torre RN) HYDROmorphone (Dilaudid) tablet 2-6 mg 2-6 mg, Oral, EVERY 4 HOURS PRN, Starting on Sat02/17/21 at 1707, Until 02/18/21 at 1700, Pain, Give 2 mg for mild pain (1-3), 4 mg for moderate pain (4-6) or 6 mg for severe pain (7-10) DO NOT exceed a total of 6 mg in 4 hours, Routine 1711 (Given - Provider: Ese Madrid RN) 0946 (Given - Provider: Pari Terry RN) ketorolac (Toradol) (30 mg/mL) injection 15 mg 15 mg, Intravenous, EVERY 6 HOURS PRN, Starting on Sat02/17/21 at 2003, Until 02/18/21 at 1700, Pain, Routine ketorolac (Toradol) (30 mg/mL) injection (CANCELED) ONCE PRN, Starting on Sat02/17/21 at 1430, Until 02/18/21 at 1700, Intra-Operative (Intra-Procedure), Routine 1430 (Given - Provider: Juan Marie MD) lidocaine (Xylocaine) 1% (10 mg/mL) injection 3 mg 3 mg (0.3 mL), Subcutaneous, ONCE PRN, 1 dose, Starting on Sat02/17/21 at 2002, Until 02/18/21 at 1700, for discomfort with PIV insertion, Recovery (Recovery-Hospital Unit), Routine midazolam (pf) (Versed) (1 mg/mL) injection 1 mg (CANCELED) 1 mg, Intravenous, EVERY 5 MIN PRN, Starting on Sat02/17/21 at 1004, Until Sat02/17/21 at 1945, Other, Sedation or prior to injection of local anesthetic, Hold for delirium/agitation. (Maximum dose 5 mg)., Day of Surgery (Day of Procedure), Routine 1015 (Given - Provider: Analisa Torre RN) ondansetron (pf) (Zofran) (2 mg/mL) injection 4 mg(Linked Group 1) 4 mg, Intravenous, EVERY 8 HOURS PRN, Starting on Sat02/17/21 at 2002, Until 02/18/21 at 1700, Nausea, May repeat times one in 30 minutes if ineffective. If multiple antiemetics are ordered, use ondansetron first, Recovery (Recovery-Hospital Unit) ondansetron (Zofran) tablet 4 mg(Linked Group 1) 4 mg, Oral, EVERY 8 HOURS PRN, Starting on Sat02/17/21 at 2002, Until 02/18/21 at 1700, Nausea, Vomiting, If multiple antiemetics are ordered, use ondansetron first. PO Preferred. If patient unable to take PO, may give IV if ordered. May repeat times one in 45 minutes if ineffective., Recovery (Recovery-Hospital Unit), Routine povidone-iodine (Betadine Ophthalmic Prep) 5 % ophthalmic solution (CANCELED) ONCE PRN, Starting on Sat02/17/21 at 1222, Until 02/18/21 at 1700, Intra-Operative (Intra-Procedure), Routine 1222 (Given - Provider: Juan Marie MD - Comment: Mixed into 500ml normal saline irrigation solution on sterile field.) sodium chloride 0.9 % (flush) (BD PosiFlush Normal Saline 0.9) flush 5-20 mL 5-20 mL, Intravenous, EVERY 1 MIN PRN, Starting on Sat02/17/21 at 2002, Until 02/18/21 at 1700, flush, Flush pertains to all indwelling lines. Flush per protocol found in the job aid using the link provided on this medication record., Recovery (Recovery-Hospital Unit), Routine Linked Groups Order Group 1: ondansetron (Zofran) tablet 4 mgJump to med 4 mg, Oral, EVERY 8 HOURS PRN, Starting on Sat02/17/21 at 2002, Until 02/18/21 at 1700, Nausea, Vomiting, If multiple antiemetics are ordered, use ondansetron first. PO Preferred. If patient unable to take PO, may give IV if ordered. May repeat times one in 45 minutes if ineffective., Recovery (Recovery-Hospital Unit), Routine Or ondansetron (pf) (Zofran) (2 mg/mL) injection 4 mgJump to med 4 mg, Intravenous, EVERY 8 HOURS PRN, Starting on Sat02/17/21 at 2002, Until 02/18/21 at 1700, Nausea, May repeat times one in 30 minutes if ineffective. If multiple antiemetics are ordered, use ondansetron first, Recovery (Recovery-Hospital Unit) documented in this encounter Care Teams Creative Project Manager Relationship Specialty Start Date End Date Mary Barton, SENIOR TABLEAU DEVELOPER PCP - General Family Medicine 11/15/20 documented as of this encounter
--- OUTSIDE RECORDS SUMMARY | 2024-01-07 02:46 | XMS_ITS | Encounter Summary ---
Author Organization [facility] [place] [place] [address] Care Team Providers Care Taxi Proprietor Name Role Phone Mary Barton APRN Primary Care Provider [phone] Encounter Details Date Type Department Care Team (Late st Contact Info) Description 03/10/2021 Telephone [place] [address] Jayesh Aguirre Social History Tobacco Use Types Packs/Day Years [...] encounter Miscellaneous Notes * Telephone Encounter - Jayesh Aguirre - 03/10/2021 4:57 PM EDT Carolina called to let us know that she is ready to discharge this patient from home health. Chances are she will be discharged the day of her appointment with Dr Marie 03/20. She will be starting out patient PT at [facility], their fax is [phone]. documented in this encounter Plan of Treatment Upcoming Encounters Date Type Department Care Team (Late st Contact Info) Description 02/17/2024 1:00 PM EDT Office [place] [address] Julian Kate MD [facility] [place] [address] documented as of this encounter Visit Diagnoses Not on filedocumented in this encounter Care Teams Taxi Proprietor Relationship Specialty Start Date End Date Mary Barton APRN PCP - General Family Medicine 11/15/20 documented as of this encounter
--- OUTSIDE RECORDS SUMMARY | 2024-01-07 02:46 | XMS_ITS | Encounter Summary ---
Author Organization [facility] [place] [address] Care Team Providers Care Mission Worker Name Role Phone Mary Barton APRN Primary Care Provider [phone] Encounter Details Date Type Department Care Team (Late st Contact Info) Description 02/17/2021 Notes [place] [address] Juan Marie MD [facility] DR [place] [address] Social History Tobacco Use Types Packs/Day Years [...] Revision System In Revision Total Knee Arthroplasty Surgeon Name: Frank Intraoperative Complications? No Surgery Time: Start/cut time: 12:22 (24 hour clock) Stop/Close time: 14:37 (24 hour clock) OPERATIVE DETAILS What was the primary reason for revision (kenneth ONE)? Other - specify: Arthrofibrosis If deep infection, was this second stage of two stage procedure? [X] No Provide secondary reason(s) for revision (kenneth NONE or ALL that apply)? [x] None [ ] Deep infection If deep infection, was this second stage of two stage procedure? [X] No [ ] Instability (soft tissue) [ ] Aseptic Loosening [ ] Malalignment [ ] Extensor Mechanism Disruption [ ] Patellofemoral Dislocation [ ] Tibiofemoral Dislocation [ ] Bearing Surface Wear [ ] Dissociation of Tibial Insert from Tibial Implant [ ] Trauma [ ] Other - specify: Skin Incision (kenneth ONE): Midline Deep Approach (kenneth ONE): Medial parapatellar Extensor Mechanism Management (kenneth NONE or ALL that apply): [ ] None [x] Patella reduction [ ] Tibial Tubercle Osteotomy [ ] Quadriceps Release/Snip [ ] Lateral Release [ ] Other - specify: AORI Bone Defect Classification: Definitions of AORI Bone Defect Classification Type 1: No augments (>4mm), structural grafts, or >1 cm cement fill. Type 2: Joint line anabaptism with an augmented component (>4mm), particulate autograft or allograft, or more than 1 cm cement fill. (One condyle affected (2a) / both condyles affected (2b)) Type 3: Reconstructed condyle or plateau with structural graft, augment, or cement (or hinged components) FEMUR (kenneth ONE): Type 2b TIBIA (kenneth ONE): Type 1 Bone Graft Femoral Bone Graft [X] No (if no, remove subsections) Distal Femoral Bone Graft [X] No (kenneth all that apply) [ ] Allograft Particulate [ ] Allograft Structural [ ] Autograft Particulate [ ] Autograft Structural Posterior Femoral Bone Graft [X] No (kenneth all that apply) [ ] Allograft Particulate [ ] Allograft Structural [ ] Autograft Particulate [ ] Autograft Structural Tibial Bone Graft [X] No (if no, remove subsections) Type of Revision (kenneth ONE): Full Components Removed (kenneth ALL that apply) FEMUR [X] Yes (if no, remove below) Was Femoral STEM removed? [X] No Cemented? [X] Yes Was Femoral SLEEVE/CONE removed? [X] No Cemented? [X] N/A Was Femoral DISTAL AUGMENT removed? [X] No Cemented? [X] N/A Was Femoral POSTERIOR AUGMENT removed? [X] No Cemented? [X] N/A Was Femoral ANTERIOR AUGMENT removed? [X] No Cemented? [X] N/A TIBIA [X] Yes (if no, remove below) Was Tibial BASE removed? [X] Yes Cemented? [X] Yes Was Tibial INSERT removed? [X] Yes Was Tibial STEM removed? [X] N/A Cemented? [X] N/A Was Tibial SLEEVE/CONE removed? [X] No Cemented? [X] N/A Was Tibial MEDIAL AUGMENT removed? [X] No Cemented? [X] N/A Was Tibial LATERAL AUGMENT removed? [X] No Cemented? [X] N/A Was Tibial POSTERIOR AUGMENT removed? [X] No Cemented? [X] N/A CEMENT SPACER [X] No PRODUCTS IMPLANTED: Configuration of the ATTUNE Implant (kenneth ONE): PS FB Femoral Component [X] Yes Femoral Ancillary Component [X] Yes Was Femoral STEM used? [X] Yes Was Femoral STEM OFFSET used? [X] No Was Femoral SLEEVE used? [X] No Was Femoral DISTAL AUGMENT used medially? [X] Yes Was Femoral DISTAL AUGMENT used laterally? [X] Yes Was Femoral POSTERIOR AUGMENT used medially? [X] No Was Femoral POSTERIOR AUGMENT used laterally? [X] No Tibial Base Component [X] Yes Tibial Ancillary Component [X] Yes Was Tibial STEM used? [X] Yes Was Was Tibial STEM OFFSET ADAPTER used? [X] Yes Was Tibial SLEEVE used? [X] No Was Tibial MEDIAL AUGMENT used? [X] No Was Tibial LATERAL AUGMENT used? [X] No Tibial Insert Component [X] Yes PATELLA STATUS Previously resurfaced? [X] Yes Never resurfaced and implanted an ATTUNE patella [X] No (Enter on Device Log) If yes, Prior Patella component left in situ? [X] No If yes, What was the brand of patella: N/A If no, Revised & implanted an ATTUNE patella [X] Yes (Enter on Device Log) Or If no, Revised and no component inserted? [X] No Patellectomy? [X] No Were Cut-Through Trials used? [X] Yes Was computer-assisted surgery used? [X] No Ligament Balancing Technique (kenneth ONE for primary methodology): Trials only PCL Management (kenneth ONE): Resected/Absent Was the Patellar Tracking adequate without lateral release? [X] Yes Bone Cement used? [X] Yes (Enter on Device Log) If bone cement used, which components were cemented? [x] Femoral Component [x] Femoral Stem [ ] Femoral Sleeve [x] Tibial Base [ ] Tibial Stem [ ] Tibial Sleeve Antibiotic Cement? [X] No Was date of admission equal to date of surgery? [X] Yes Date of discharge: 02/18/21 Discharge Disposition: Home Based on Version 4.0 [id number] - OPERATIVE DETAILS Revision Patient Population documented in this encounter Plan of Treatment Upcoming Encounters Date Type Department Care Team (Late st Contact Info) Description 02/17/2024 1:00 PM EDT Office [place] [address] Julian Kate MD [facility] [place] [address] documented as of this encounter Visit Diagnoses Not on filedocumented in this encounter Care Teams Mission Worker Relationship Specialty Start Date End Date Mary Barton APRN PCP - General Family Medicine 11/15/20 documented as of this encounter
--- OUTSIDE RECORDS SUMMARY | 2024-01-07 02:46 | XMS_ITS | Encounter Summary ---
Author Organization [facility] Address [facility] [facility] [place] [address] Care Team Providers Care Fish Hatchery Specialist Name Role Phone Mary Barton KALLI Primary Care Provider [phone] Reason for Referral * Physical Therapy (Routine) - Closed Specialty Diagnoses / Procedures Referred By Temitope michaels Referred To Contact Physical Therapy Diagnoses Total knee replacement status, right Juan Marie MD [facility] [place] [address] Referral ID Status Reason Start Date Expiration Date V isits Requested Visits Authorized [id number] Closed Evaluate and Treat 03/10/2021 09/06/2021 24 24 Encounter Details Date Type Department Care Team (Late st Contact Info) Description 03/10/2021 Orders [place] [address] Juan Marie MD [facility] [place] [address] Total knee replacement status, right Social History Tobacco Use Types Packs/Day [...] 1:00 PM EDT Office [place] [address] Julian Kate MD [facility] [place] [address] Scheduled Referrals Name Type Priority Associated Diagnoses Orde r Schedule Referral to Physical Therapy Outpatient Referral Routine Total knee replacement status, right Ordered: 03/10/2021 documented as of this encounter Visit Diagnoses Diagnosis Total knee replacement status, right documented in this encounter Care Teams Fish Hatchery Specialist Relationship Specialty Start Date End Date Mary Barton APRN PCP - General Family Medicine 11/15/20 documented as of this encounter
--- OUTSIDE RECORDS SUMMARY | 2024-01-07 02:46 | XMS_ITS | Encounter Summary ---
Author Organization [facility] [place] [address] Care Team Providers Care Ginner Helper Name Role Phone Mary Barton ENDLESS BED DRUM SANDER Primary Care Provider [phone] Reason for Visit * Reason Onset Date Comments Questions 03/03/2021 Encounter Details Date Type Department Care Team (Late st Contact Info) Description 03/03/2021 [place] [phone] Lorie Queen Questions Social History Tobacco Use Types Packs/Day Years [...] encounter Miscellaneous Notes * Telephone Encounter - Jamila Bo - 03/07/2021 4:17 PM EDT Pari called back today to update us on her progress. She has seen [facility] twice since speaking with juwan and also spoke to her GP. Both have given her a few more exercises to add to her current ones. Patient states she is seeing some improvement. There is still swelling in her calf muscles. She will call back should she hit a plateau or go backwards in her recover. P: [phone] * Telephone Encounter - Marco Evangelista - 03/03/2021 1:29 PM EDT Called the patient back to discuss with her further about her current signs and symptoms status post right TKA revision with Dr. Marie. Patient states that she is had consistent fritz pain since about the second day after her surgery in the area from the midpoint of her tibia to the the distal third of her tibia. She states that she only has this discomfort while walking but does not experience it while at rest. She denies any fever, aches, chills, numbness, swelling, discharge from the incision site, focal calf pain, or shortness of breath. After reviewing the patient's x-rays, she does have a long tibial stem. After further discussion about the exercises that she is performing with her physical therapist as well as through the force platform, I believe that she may be experiencing some discomfort in the anterior tibialis. She does state that her calf muscles are tight as compared bilaterally. She does not have any swelling in the ankle, foot, or toes. I advised the patient on stretching the posterior structures of the lower extremity to include the gastrocnemius and soleus muscles. I discussed with the patient how lengthening the posterior muscleswill aid the anterior muscles. Plan moving forward: Patient will work through the long weekend on stretching and call with an update to her status early next week. Depending upon her presentation at that time, I will present to Dr. Marie for ULISES Rashid, for further review and guidance. Patient agrees to this plan and will follow up as discussed. * Telephone Encounter - BretLorie - 03/03/2021 9:34 AM EDT Call Center Call Note Provider: DESIREE DOI/ DOS: DOS 02/17/21 Procedure: R TKA REV Reason for call: Patient called stating that she has been having extreme fritz pain. She said that it hurts when she walks and is very painful to the touch. She wasn't sure if at first it was the way she was walking with her walker but now states that she knows that isn't the issue. She would like acall back to discuss. Chart reviewed to answer questions: Yes Team message being sent to: Lower Extremity Does patient have My eDH: Yes; has MyDH but would prefer a call to [phone] . Okay to leave a detailed message Yes. Best contact number: [phone] Response needed: yes. Patient was informed that they will be contacted by a member of the team within 48 hours documented in this encounter Plan of Treatment Upcoming Encounters Date Type Department Care Team (Late st Contact Info) Description 02/17/2024 1:00 PM EDT Office [place] [address] Julian Kate MD [facility] [place] [address] documented as of this encounter Visit Diagnoses Not on filedocumented in this encounter Care Teams Ginner Helper Relationship Specialty Start Date End Date Mary Barton APRN PCP - General Family Medicine 11/15/20 documented as of this encounter
--- OUTSIDE RECORDS SUMMARY | 2024-01-07 02:46 | XMS_ITS | Encounter Summary ---
Author Organization [facility] Address [facility] [place] [address] Care Team Providers Care Loading Machine Operator Name Role Phone Mary Barton APRN Primary Care Provider [phone] Encounter Details Date Type Department Care Team (Late st Contact Info) Description 02/25/2021 Tele[place] [address] Andrew Peterson MD [facility] [place] [address] Social History Tobacco Use Types Packs/Day Years [...] encounter Miscellaneous Notes * Telephone Encounter - Andrew Peterson MD - 02/25/2021 10:05 AM EDT Received a page to call back this patient. Attempted to call the patient with no answer. Left a message to call back if there are questions or concerns or go to the emergency department if this is anemergency. Follow-up call: Reports that home health came by yesterday and removed dressing with Prineo still in place and leftopen to air. Reports top part of the mesh curled down. Denies drainage or erythema. Recommended leaving Prineo in place. Can shower. All questions were answered and the patient was in agreement the plan. documented in this encounter Plan of Treatment Upcoming Encounters Date Type Department Care Team (Late st Contact Info) Description 02/17/2024 1:00 PM EDT Office [place] [address] Julian Kate MD [facility] [place] [address] documented as of this encounter Visit Diagnoses Not on filedocumented in this encounter Care Teams Loading Machine Operator Relationship Specialty Start Date End Date Mary Barton APRN PCP - General Family Medicine 11/15/20 documented as of this encounter
--- OUTSIDE RECORDS SUMMARY | 2024-01-07 02:46 | XMS_ITS | Encounter Summary ---
Author Organization [facility] [place] [address] Care Team Providers Care Customer Contact Specialist Name Role Phone Mary Barton APRN Primary Care Provider [phone] Encounter Details Date Type Department Care Team (Late st Contact Info) Description 03/20/2021 Notes Only [place] [phone] Sr Joshua Pena Social History Tobacco Use [...] Revision System In Revision Total Knee Arthroplasty 6 Week Visit (1d to 90d 1d to 273d) Date: 03/20/2021 TASKS AT VISIT Coordinator X-Rays 3 Views Patient (Paper, in Binder) Post-Op Knee Society 2011 - Patient Post-Op PKIP Pain Severity and Location KOOS-PS EQ-5D-5L Physician Knee Society 2011 - Physician Post-operative Recovery Satisfaction Question All above forms were completed. X-Rays will be transmitted to the sponsor. documented in this encounter Plan of Treatment Upcoming Encounters Date Type Department Care Team (Late st Contact Info) Description 02/17/2024 1:00 PM EDT Office Visit [place] [address] Julian Kate MD [facility] [address] documented as of this encounter Visit Diagnoses Not on filedocumented in this encounter Care Teams Customer Contact Specialist Relationship Specialty Start Date End Date Mary Barton APRN PCP - General Family Medicine 11/15/20 documented as of this encounter
--- OUTSIDE RECORDS SUMMARY | 2024-01-07 02:46 | XMS_ITS | Encounter Summary ---
Author Organization [facility] [place] [address] Care Team Providers Care Waste Collector Name Role Phone Mary Barton APRN Primary Care Provider [phone] Encounter Details Date Type Department Care Team (Late st Contact Info) Description 02/19/2022 [place] [address] Sr Joshua Pena Social History Tobacco Use [...] Progress Notes * Sr Joshua Pena - 02/19/2022 11:28 AM EDT [employer] ATTUNE Revision [id number]: Multi-Center Clinical Evaluation of the ATTUNE Revision System In Revision Total Knee Arthroplasty Min 1 Year Visit (335d to 395d 274d to 668d) Date: 02/19/2022 TASKS AT VISIT Coordinator X-Rays 3 Views Patient (Paper, in Binder) Post-Op Knee Society 2011 - Patient Post-Op PKIP Pain Severity and Location KOOS-PS EQ-5D-5L Physician Knee Society 2011 - Physician DATE OF EVALUATION 02/19/2022 Affected Side: right How was the evaluation performed? Clinic Visit Did subject report any new AEs or any updates to an existing AE at this evaluation? No Have any components of the attune revision implant (study knee) been removed/exchanged/revised? No Based on Version 1.0 [id number] - Method of Data Collection documented in this encounter Plan of Treatment Upcoming Encounters Date Type Department Care Team (Late st Contact Info) Description 02/17/2024 1:00 PM EDT [place] [address] Julian Kate MD [facility] [place] [address] documented as of this encounter Visit Diagnoses Not on filedocumented in this encounter Care Teams Waste Collector Relationship Specialty Start Date End Date Mary Barton APRN PCP - General Family Medicine 11/15/20 documented as of this encounter
--- OUTSIDE RECORDS SUMMARY | 2024-01-07 02:46 | XMS_ITS | Encounter Summary ---
Author Organization [facility] Address [facility] [place] [address] Care Team Providers Care Lagging Machine Operator Name Role Phone Mary Barton APRN Primary Care Provider [phone] Encounter Details Date Type Department Care Team (Late st Contact Info) Description 02/22/2021 Telephone [place] [phone] Harjinder Dumont MD [facility] [place] [address] Social History Tobacco Use Types Packs/Day Years [...] as of this encounter Progress Notes * Harjinder Dumont - 02/22/2021 10:17 AM EDT Attempted to call patient via telephone to assess resolution of block with no answer. Please contact regional block team, pager [phone], with any concerns for residual numbness/tingling or weakness. Harjinder Dumont MD 02/22/21 documented in this encounter Plan of Treatment Upcoming Encounters Date Type Department Care Team (Late st Contact Info) Description 02/17/2024 1:00 PM EDT Office [place] [address] Julian Kate MD [facility] [place] [address] documented as of this encounter Visit Diagnoses Not on filedocumented in this encounter Care Teams Lagging Machine Operator Relationship Specialty Start Date End Date Mary Barton APRN PCP - General Family Medicine 11/15/20 documented as of this encounter
--- OUTSIDE RECORDS SUMMARY | 2024-01-07 02:46 | XMS_ITS | Encounter Summary ---
Author Organization [facility] [place] [address] Care Team Providers Care Speech Assistant Name Role Phone Mary Barton APRN Primary Care Provider [phone] Reason for Visit * Reason Onset Date Comments Appointment 04/11/2023 Encounter Details Date Type Department Care Team (Late st Contact Info) Description 04/11/2023 Telephone [place] [phone] Juan aMrie MD [facility] [place] [address] Appointment Social History Tobacco Use Types Packs/Day Years [...] encounter Miscellaneous Notes * Telephone Encounter - Rolando Porras - 04/15/2023 11:05 AM ESTSumrenee: Kulwant called and scheduled. Scheduled. * Telephone Encounter - Gayathri Garcia - 04/15/2023 10:41 AM EST Lm#2 please help schedule patient from recall due to being in a study this needs to be scheduled prior to 12/17/23. Schedule from recall. * Telephone Encounter - Cesilia Rasmussen - 04/11/2023 4:33 PM EST Lm#1 please help schedule patient from recall due to being in a study this needs to be scheduled prior to 12/17/23 documented in this encounter Plan of Treatment Upcoming Encounters Date Type Department Care Team (Late st Contact Info) Description 02/17/2024 1:00 PM EDT Office Visit [place] [address] Julian Kate MD [facility] [place] [address] documented as of this encounter Visit Diagnoses Not on filedocumented in this encounter Care Teams Speech Assistant Relationship Specialty Start Date End Date Mary Barton APRN PCP - General Family Medicine 11/15/20 documented as of this encounter
--- OUTSIDE RECORDS SUMMARY | 2024-01-07 02:46 | XMS_ITS | Encounter Summary ---
Author Organization [facility] Address [facility] [place] [address] Care Team Providers Care Transcribing Operator Head Name Role Phone Mary Barton APRN Primary Care Provider [phone] Encounter Details Date Type Department Care Team (Latest Contact Info) Description 02/19/2022 10:21 AM EDT - 02/19/2022 11:59 PM EDT Hospital Encounter XRay at [address] [place] [address] Juan Marie MD [facility] [place] [address] Total knee replacement status, right; Failed total right knee replacement, subsequent encounter; S/P revision of total knee, right Discharge [...] Sig Dispensed Refills Start Date End Date aspirin 81 mg Tablet, Chewable Take 81 mg by mouth daily. 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 No other bone, joint or soft tissue abnormality on the single view. Thank you for letting us participate in the care of this patient. ??If you are a health care provider and have any questions regarding this report, please contact the number below. ??For patients who have questions please contact the health technical healthcare consultant that requested your imaging first. ? Electronically signed by: Krystina Sun MD, [facility] ([phone]), at 02/19/2022 1:19 PM Narrative 02/19/2022 1:19 PM EDT EXAMINATION: RESEARCH-XR SKYLINE ONLY CLINICAL HISTORY: R TKA, ATTUNE STUDY TECHNIQUE: [place] view bilateral knees COMPARISON: Right knee radiographs February 19, 2022 and March 20, 2021 Procedure Note Krystina Sun MD - 02/19/2022 EXAMINATION: RESEARCH-XR SKYLINE ONLY CLINICAL HISTORY: R TKA, ATTUNE STUDY TECHNIQUE: [place] view bilateral knees COMPARISON: Right knee radiographs February 19, 2022 and March 20, 2021 IMPRESSION FINDINGS/IMPRESSION: Right total knee arthroplasty with aligned patella. Mild osteoarthropathyat the left patellofemoral compartment. No other bone, joint or soft tissueabnormality on the single view. Thank you for letting us participate in the care of this patient. If youare a health care provider and have any questions regarding this report,please contact the number below. For patients who have questions please contactthe health technical healthcare consultant that requested your imaging first. Electronically signed by: Krystina Sun MD, [facility]([phone]), at 02/19/2022 1:19 PM Juan Marie MD IMG RESEARCH ORDERA BLES * XR Knee 1-2 Views Right (Generic) (02/19/2022 10:50 AM EDT) Anatomical Region Laterality Modality Knee Right Digital Radiogra phy Impressions 02/19/2022 10:53 AM EDT Stable status post RIGHT total knee arthroplasty. Thank you for letting us participate in the care of this patient. ??If you are a health care provider and have any questions regarding this report, please contact the number below. ??For patients who have questions please contact the health technical healthcare consultant that requested your imaging first. ? Electronically signed by: Karen Hansen MD, [facility] ([phone]), at 02/19/2022 10:53 AM Narrative 02/19/2022 10:53 AM EDT EXAMINATION: XR KNEE 1-2 VIEWS RIGHT (GENERIC) CLINICAL HISTORY: s/p RIGHT TKA With Mag Markers, please. TECHNIQUE: 2 views RIGHT knee COMPARISON: 03/20/2021 FINDINGS: Patient is status post RIGHT total knee arthroplasty. There is marked degenerative change in the LEFT knee which is seen on this single view only. No complication is seen in the RIGHT knee and there is no interval change appreciated. Procedure Note Karen Hansen MD - 02/19/2022 EXAMINATION: XR KNEE 1-2 VIEWS RIGHT (GENERIC) CLINICAL HISTORY: s/p RIGHT TKA With Mag Markers, please. TECHNIQUE: 2 views RIGHT knee COMPARISON: 03/20/2021 FINDINGS: Patient is status post RIGHT total knee arthroplasty. There is marked degenerative change in the LEFT knee which is seen on this single viewonly. No complication is seen in the RIGHT knee and there is no interval change appreciated. IMPRESSION Stable status post RIGHT total knee arthroplasty. Thank you for letting us participate in the care of this patient. If youare a health care provider and have any questions regarding this report,please contact the number below. For patients who have questions please contactthe health technical healthcare consultant that requested your imaging first. 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
--- OUTSIDE RECORDS SUMMARY | 2024-01-07 02:46 | XMS_ITS | Encounter Summary ---
Author Organization [facility] [place] [place] [address] Care Team Providers Care Charging Plug Placer Name Role Phone Mary Barton GANG KNIFE FISH CHOPPER Primary Care Provider [phone] Encounter Details Date Type Department Care Team (Late st Contact Info) Description 02/06/2021 Notes [place] [address] Juan Marie MD [facility] [place] [address] Social History Tobacco Use Types Packs/Day Years [...] Progress Notes * Sr Joshua Pena - 02/06/2021 12:06 PM EDT Depuy Synthes ATTUNE Revision DSJ-2015-06: Multi-Center Clinical Evaluation of the ATTUNE Revision System In Revision Total Knee Arthroplasty Knee Society Score (2011) - Surgeon Charnley Function Classification (kenneth ONE): B1 - Unilateral TKA, opposite knee arthritis Alignment: measured on AP standing X-ray (anatomic alignment) (kenneth ONE): Valgus: > 10 degrees valgus Medial/Lateral Instability: measured in full extension (kenneth ONE): None Anterior/Posterior Instability: measured at 90 degrees (kenneth ONE): knee only bends 30o Range of motion: Flexion Contracture (kenneth ONE): 0 degrees Extensor Lag (kenneth ONE): 0 degrees Passive Flexion (measured with goniometer): 30 degrees Extension (measured with goniometer): 0 degrees Hyperextension? [X] No Pain (kenneth ONE): Moderate continual Based on Version 1.0 [id number] - Knee Society Score(2010) To Be Completed by Surgeon documented in this encounter Plan of Treatment Upcoming Encounters Date Type Department Care Team (Late st Contact Info) Description 02/17/2024 1:00 PM EDT Office Visit [place] [address] Julian Kate MD [facility] [place] [place] [address] documented as of this encounter Visit Diagnoses Not on filedocumented in this encounter Care Teams Charging Plug Placer Relationship Specialty Start Date End Date Mary Barton APRN PCP - General Family Medicine 11/15/20 documented as of this encounter
--- OUTSIDE RECORDS SUMMARY | 2024-01-07 02:46 | XMS_ITS | Encounter Summary ---
Author Organization [facility] Address [facility] [place] [address] Care Team Providers Care Fly Maker Name Role Phone Mary Barton ELECTRICAL EQUIPMENT TESTER Primary Care Provider [phone] Reason for Visit * Reason Comments Follow-up XR R TKA Rev 02/17 (WE) (ATTUNE STUDY) Encounter Details Date Type Department Care Team (Late st Contact Info) Description 02/19/2022 11:10 AM EDT Office [place] [address] Juan Ramírez MD [facility] [place] [address] Total knee replacement status, right; Failed total right knee replacement, subsequent encounter; S/P revision of total knee, right Social [...] Pulse 79 02/19/2022 11:13 AM EDT Temperature - - Respiratory Rate - - Oxygen Saturation - - Inhaled Oxygen Concentration - - Weight 108.9 kg (240 lb) 02/19/2022 11:13 AM EDT Height 157.5 cm (5' 2) 02/19/2022 11:13 AM EDT Body Mass Index 43.9 02/19/2022 11:13 AM EDT documented in this encounter Progress Notes * Juan Ramírez MD - 02/19/2022 11:10 AM EDT Arthroplasty/Orthopaedic History: 1. R TKA 2015- Dr. Collazo 2. R TKA synovectomy 2017- Dr. Collazo?? 3. Right TKA Revision. Dr. Ramírez. 02/17/2021 for arthrofibrosis HPI: Pari Lackey is a very pleasant 71 y.o. year-old female and is now 1 year post right total knee revision. The patient has been doing well. Pain is controlled with current analgesics. Medication(s) being used: acetaminophen, PRN. No fevers, chills, nausea, vomiting, or symptoms of infection. Pari has been ambulating with no assistive device for the most part but will use a can on uneven ground ROS: Denies: fever, chills, night sweats, nausea, or vomiting BP 114/50 Pulse 79 Ht 157.5 cm (5' 2) Wt 108.9 kg (240 lb) BMI 43.90 kg/m?? Physical Exam: Well-appearing female in no acute distress. Alert and Oriented x 3 and answers all questions appropriately. The incision is well healed, with no signs of infection. Post Op Right Knee Exam: Knee ROM: Extension:0 Flexion: 95 Alignment: 0-4 degrees Varus Stability: A/P Translation <5mm. Varus <5mm Valgus [...] subsidence, loosening, or periprosthetic complication. Questionnaire Responses: [facility] Surgical Postop Visit 02/19/2022 PROMIS-10 General Health Good PROMIS-10 Quality of Life Good PROMIS-10 Physical Health Good PROMIS-10 Mental Health Fair PROMIS-10 Social Activity Good PROMIS-10 Everyday Activities Mostly PROMIS-10 Pain 5 PROMIS-10 Fatigue Moderate PROMIS-10 Social Roles Good PROMIS-10 Anxious or Depressed Often PROMIS PHYSICAL HEALTH SCORE 42.3 PROMIS MENTAL HEALTH SCORE 38.8 KOOS JR Scores 68.28 Problems with surgical incision/wound after surgery No Gone to ER since knee surgery No Admitted to hospital since recent ortho surgery No Additional surgery on same body part No TKA Grade 7 Pain in other KNEE None Back pain at this moment Moderate Satisfaction with Treatment Satisfied Choose Same Treatment Again Definitely yes [facility] Response 02/19/2022 KOOS JR Scores 68.28 Spine [facility] Response 02/19/2022 KOOS JR Scores 68.28 ASSESSMENT/PLAN: Ms. Lackey is a 71 y.o. year old female status post right total knee revision. Doing well postoperatively. Continue weightbearing as tolerated and working on range of motion. We will see her back in 1 years for repeat examination. X-rays will be needed at that time. Patient may return to normal activities as her pain and function allow. We discussed the appropriate precautions surrounding dental prophylaxis; according to the AAOS Appropriate Use Criteria we do not recommend antibiotic use prior to dental procedures for Pari. If Pari has any changes in health status we recommend she contact our office prior to dental procedures for updated recommendations We also discussed maintaining good foot care and giving prompt attention to any source of infectionthroughout the body including foot ulcers and urinary tract infections. All questions were answered. Signed: JUAN RAMÍREZ MD 02/19/2022 documented in this encounter Plan of Treatment Upcoming Encounters Date Type Department Care Team (Late st Contact Info) Description 02/17/2024 1:00 PM EDT Office [place] [address] Julian Kate MD [facility] [place] [address] documented as of this encounter Results * RESEARCH-XR [place] Only (02/19/2022 10:50 AM EDT) Anatomical Region [...] who have questions please contact the health urgent care physician that requested your imaging first. ? Narrative 02/19/2022 1:19 PM EDT EXAMINATION: RESEARCH-XR SKYLINE ONLY CLINICAL HISTORY: R TKA, ATTUNE STUDY TECHNIQUE: [place] view bilateral knees COMPARISON: Right knee radiographs February 19, 2022 and March 20, 2021 Procedure Note Krystina Sun MD - 02/19/2022 EXAMINATION: RESEARCH-XR SKYLINE ONLY CLINICAL HISTORY: R TKA, ATTUNE STUDY TECHNIQUE: [place] view bilateral knees COMPARISON: Right knee radiographs [...] patients who have questions please contactthe health urgent care physician that requested your imaging first. Juan Ramírez MD IMG RESEARCH ORDERA ZAYRA * XR Knee 1-2 Views Right (Generic) [...] who have questions please contact the health urgent care physician that requested your imaging first. ? Narrative 02/19/2022 10:53 AM EDT EXAMINATION: XR [...] patients who have questions please contactthe health urgent care physician that requested your imaging first. 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
--- OUTSIDE RECORDS SUMMARY | 2024-01-07 02:46 | XMS_ITS | Encounter Summary ---
Author Organization [facility] [place] [address] Care Team Providers Care Box Attacher Name Role Phone Mary Barton APRN Primary Care Provider [phone] Encounter Details Date Type Department Care Team (Late st Contact Info) Description 02/06/2021 Notes [place] [address] Sr Joshua Pena Social History Tobacco Use [...] Notes * Sr Joshua Pena - 02/06/2021 11:53 AM EDT Depuy Synthes ATTUNE Revision DSJ-2015-06: Multi-Center Clinical Evaluation of the ATTUNE Revision System In Revision Total Knee Arthroplasty Date: 02/06/2021 Visit: Pre-op Subject Number: [id number] INFORMED CONSENT A copy of the consent document was provided to the patient for review.She was given time to read the consent in a quiet, private room. The study was described to her by Joshua Pena, and ample time was allowed for her to ask questions about the study. She verbalized understanding of the study details, the risks and benefits of the study, and what would be expected of her while participating. After all of her questions were answered to her satisfaction, the informed consent document was signed by the patient and Joshua Pena on 02/06/2021 prior to all study procedures. All forms where completed. documented in this encounter Plan of Treatment Upcoming Encounters Date Type Department Care Team (Late st Contact Info) Description 02/17/2024 1:00 PM EDT Office [place] [address] Julian Kate MD [facility] [place] [address] documented as of this encounter Visit Diagnoses Not on filedocumented in this encounter Care Teams Box Attacher Relationship Specialty Start Date End Date Mary Barton APRN PCP - General Family Medicine 11/15/20 documented as of this encounter
--- OUTSIDE RECORDS SUMMARY | 2024-01-07 02:46 | XMS_ITS | Encounter Summary ---
Author Organization [facility] Address [facility] [place] [address] Care Team Providers Care Second Baker Name Role Phone Mary Barton APRN Primary Care Provider [phone] Encounter Details Date Type Department Care Team (Latest Contact Info) Description 03/20/2021 11:20 AM EDT - 03/20/2021 11:59 PM EDT Hospital Encounter XRay at [address] [place] [address] Juan Marie MD [facility] [place] [address] Debility; Pain of right lower extremity; Failed total knee arthroplasty, initial encounter; Arthrofibrosis of knee joint, right Discharge Disposition: Home Social History Tobacco [...] Dispensed Refills Start Date End Date Rizatriptan (MAXALT-COMPRESS TRUCKER) 5 mg Tablet, Rapid Dissolve Prn for [...] QHS 01/16/2021 fluticasone propionate (Flonase) 50 mcg/actuation [place], Suspension SHAKE LIQUID AND USE 2 SPRAYS [...] Tablet Take 400 Units by mouth daily. HYDROmorphone (Dilaudid) 2 mg TabletIndications:Tota l knee replacement status, right Take 0.5-1 tablets by mouth every 4 hours as needed for Pain. 30 tablet 02/23/2021 05/01/2021 omeprazole (PriLOSEC) 20 mg Capsule, Delayed Release(E.C.) Take 1 capsule by mouth daily for 42 days. 42 capsule 02/18/2021 04/01/2021 naproxen sodium (ANAPROX) 220 mg Tablet Take 1 tablet by mouth 2 times daily as needed. You can take naproxen OR meloxicam OR ibuprofen/motrin 60 tablet 12 02/18/2021 05/01/2021 docusate sodium (Colace) 100 mg Capsule Three times a day, as needed 12/01/2020 05/01/2021 documented as of this encounter Plan of Treatment Upcoming Encounters Date Type Department Care Team (Late st Contact Info) Description 02/17/2024 1:00 PM EDT Office Visit Endocrinology at [place] [phone] Julian Kate MD [facility] [place] [address] documented as of this encounter Procedures Procedure Name Priority Date/Time Associated Diagnosis Comments XR KNEE STANDING ALIGNMENT AP LAT SKYLINE RIGHT Routine 03/20/2021 11:41 AM EDT Debility Pain of right lower extremity Failed total knee arthroplasty, initial encounter Arthrofibrosis of knee joint, right documented in this encounter Results * XR Knee Standing Alignment AP Lat [place] Right (03/20/2021 11:41 AM EDT) Anatomical Region Laterality Modality Knee Right Digital Radiogra phy Impressions 03/20/2021 11:54 AM EDT 1. Status post right total knee revision arthroplasty without radiographic finding of complication or acute abnormality. Mild bilateral lower extremity varus alignment. 2. Osteoarthropathy of the sacroiliac joints, hips and left knee. Lumbar spondylosis. No acute radiographic abnormality. Thank you for letting us participate in the care of this patient. ??If you are a health care provider and have any questions regarding this report, please contact the number below. ??For patients who have questions please contact the health critical care technician that requested your imaging first. ? Electronically signed by: Krystina Sun MD, [facility] ([phone]), at 03/20/2021 11:54 AM Narrative 03/20/2021 11:54 AM EDT EXAMINATION: XR KNEE STANDING ALIGNMENT AP LAT SKYLINE RIGHT CLINICAL HISTORY: History of knee replacement TECHNIQUE: Separate images of the pelvis, knees and feet were acquired in the AP projection with the patient standing. ??These images were stitched together to form a composite image of the pelvis and legs. Bilateral AP, skyline and right lateral knee radiographs are included. COMPARISON: Right knee and lower extremity radiographs December 19 and February 17, 2021 FINDINGS: Survey: Lumbar spondylosis is partially imaged. Narrowing of the bilateral hips and sacroiliac joints is accompanied by small osteophytes. Spacing and alignment are preserved at the pubic symphysis and ankles. No focal soft tissue abnormality. Right knee: Cemented, constrained total knee arthroplasty revision hardware is intact without adjacent lucency, periprosthetic fracture, change in position or joint malalignment. Subcutaneous air has resolved. Mild joint effusion and edema persist at the anterior knee. Left knee: Tricompartmental joint space narrowing is accompanied by marginal osteophytes, greatest medially. Alignment: Right mechanical axis passes through the center of medial compartment. Left mechanical axis passes through the mesial aspect of medial compartment. Procedure Note Krystina Sun MD - 03/20/2021 EXAMINATION: XR KNEE STANDING ALIGNMENT AP LAT SKYLINE RIGHT CLINICAL HISTORY: History of knee replacement TECHNIQUE: Separate images of the pelvis, knees and feet were acquired inthe AP projection with the patient standing. These images were stitched togetherto form a composite image of the pelvis and legs. Bilateral AP, skyline andright lateral knee radiographs are included. COMPARISON: Right knee and lower extremity radiographs December 19 andFebruary 17, 2021 FINDINGS: Survey: Lumbar spondylosis is partially imaged. Narrowing of the bilateralhips and sacroiliac joints is accompanied by small osteophytes. Spacing andalignment are preserved at the pubic symphysis and ankles. No focal soft tissue abnormality. Right knee: Cemented, constrained total knee arthroplasty revisionhardware is intact without adjacent lucency, periprosthetic fracture, change inposition or joint malalignment. Subcutaneous air has resolved. Mild joint effusion andedema persist at the anterior knee. Left knee: Tricompartmental joint space narrowing is accompanied bymarginal osteophytes, greatest medially. Alignment: Right mechanical axis passes through the center of medial compartment. Left mechanical axis passes through the mesial aspect of medialcompartment. IMPRESSION 1. Status post right total knee revision arthroplasty withoutradiographic finding of complication or acute abnormality. Mild bilateral lowerextremity varus alignment. 2. Osteoarthropathy of the sacroiliac joints, hips and left knee. Lumbar spondylosis. No acute radiographic abnormality. Thank you for letting us participate in the care of this patient. If youare a health care provider and have any questions regarding this report,please contact the number below. For patients who have questions please contactthe health critical care technician that requested your imaging first. Electronically signed by: Krystina Sun MD, [facility]([phone]), at 03/20/2021 11:54 AM Juan Marie MD IMG DX ORDERABLES documented in this encounter Visit Diagnoses Diagnosis Debility Debility, unspecified Pain of right lower extremity Failed total knee arthroplasty, initial encounter Arthrofibrosis of knee joint, right documented in this encounter Care Teams Second Baker Relationship Specialty Start Date End Date Mary Barton APRN PCP - General Family Medicine 11/15/20 documented as of this encounter
--- OUTSIDE RECORDS SUMMARY | 2024-01-07 02:46 | XMS_ITS | Encounter Summary ---
Author Organization Counts Include [address] [facility] Address [facility] [place] [address] Care Team Providers Care Accountant Manager Name Role Phone Mary Barton KALLI Primary Care Provider [phone] Reason for Visit * Auth/Cert Specialty Diagnoses [...] Expiration Date Visits Re quested Visits Authorized [id number] 1 1 Encounter Details Date Type Department Care Team (Late st Contact Info) Description 02/17/2021 11:05 AM EDT - 02/17/2021 2:50 PM EDT [place] [address] Juan Marie MD [facility] DR [place] [address] @TOTAL KNEE REVISION ARTHROPLASTY, COMPLETE (WRVU 27.11) Social History Tobacco Use Types Packs/Day Years [...] Sign Reading Time Taken Comments Blood Pressure 140/106 02/17/2021 2:47 PM EDT Pulse 55 02/17/2021 2:47 PM EDT Temperature 36.4 ??C (97.5 ??F) 02/17/2021 2:47 PM ED T Respiratory Rate 13 02/17/2021 2:47 PM EDT Oxygen Saturation 100% 02/17/2021 2:47 PM EDT Inhaled Oxygen Concentration - - Weight 110.2 kg (243 lb) 02/17/2021 9:34 AM EDT Height 154.9 cm (5' 1) 02/17/2021 9:34 AM EDT Body Mass Index 45.91 02/17/2021 9:34 AM EDT documented in this encounter Discharge Summaries * Rashida Olivas, [employer] - 02/18/2021 11:46 AM EDT Discharge Summary Patient Name: Pari Lackey Patient Age: 70 y.o. Language: Vietnamese Race: White Ethnicity: Not nor Admit date: 02/17/2021 Discharge date and time: 02/18/2021 Attending Physician: Juan Marie MD Discharge Physician: Juan Marie MD Follow-up Recommendations for Providers: See discharge instructions for additional details. Future Appointments Date Time Provider Department Center 03/20/2021 11:[address] [facility] DX ROOM [address] [facility] Rad 03/20/2021 12:40 PM Juan Marie MD [facility]TH 3C [facility] Inpatient Provider Contact Information: Juan Marie MD Orthopedics: [phone] After hours and weekends, call [facility] Chief Nursing Officer, , and have the Orthopedic resident paged. [...] who have questions please contact the health careers counsellor that requested your imaging first. Electronically signed by: Oswaldo Lebron MD, [facility] ([phone]), at 02/17/2021 3:43 PM Pending Studies and Lab Data at Discharge: * No orders in the log * Transfusions: No Discharge Conditions/Prognosis: Stable, awake, and alert. Mobilizing as noted above, pain controlled on oral medications. Discharge to: [facility]: [facility]. PHONE: [phone] FAX: [phone] Updated Allergies/ADRs: Allergies Allergen Reactions ??? Sulfamethoxazole [...] bowel movement. You can also take an nwlr-ggo-wqrvuax medication, Miralax if needed to combat constipation. [...] as much as possible. Call your doctor ([phone]) if you develop: 1. Fever greater than 100.5 2. Severe nausea or vomiting 3. Increasing pain that is not controlled by pain medications 4. Increasing redness, swelling, or drainage from incisions 5. Change in sensation FOLLOW-UP APPOINTMENTS: 1. You will have follow-up appointments at [facility] as indicated below in Future Appointment and Orders. 2. You will need to have x-rays prior to your follow-up appointmen. Please come to Radiology, desk , 1 hour BEFORE that appointment for those x-rays. Future Appointments Date Time Provider Department Center 03/20/2021 11:[address] [facility] DX ROOM [address] [facility] Rad 03/20/2021 12:40 PM Juan Marie MD [facility] ORTH [address] [place] [address] If you have questions or concerns: Saturday through Saturday, 8 AM - 5 PM, please call Dr. Juan Marie MD's office at . If it is after 5 PM, the weekend, or holidays, please call and ask to speak with theOrthopedic resident on-call. General Instructions None Future Appointments and Orders Future Appointments and Orders Future Appointments Provider Department Dept Phone 03/20/2021 11:[address] [facility] DX ROOM 3 XRay at [facility] Arrive at: Network Security Administrator Area 3T [phone] Please go to Network Security Administrator Area 3T ([place] Location). 03/20/2021 12:40 PM Juan Marie MD Orthopaedics at [facility] Arrive at: Network Security Administrator Area [phone] Future Orders Complete By Expires Referral to Home Health - at DISCHARGE [QNB4981 CPT(R)] As directed Process Instructions: Scheduling Instructions: Comments: DOCUMENTATION FOR VNA SERVICES (INCLUDING THOSE PATIENTS WITH MEDICARE COVERAGE REQUIRING HOME VNA SERVICES AND/OR HOSPICE SERVICES) PATIENT'S LOCATION: Pari Lackey [address], [address] [facility] [address] [place] Room Operator's Name: Pari/pt In discussion with the attending physician, it is certified that this patient is under their care and that they, or a Nurse Practitioner,Clinical Nurse specialist or Physician Pole Cutter who is working directly with them, had [...] program if appropriate. HOME HEALTH CARE AGENCY: [facility] PHONE: [phone] FAX: [phone] Start of care: 24 - 48 hours [...] obtained from this patient's PCP: Mary Barton, [employer] [address] / [facility] [address] All VNA agencies which cover the area of patient's residence have been reviewed, either verbally jante writing, and patient/family have chosen the home health care agency noted Questions: Agency name and contact information: [facility] Patient location post discharge: Home Physical Address [address] What services are requested: Registered Nurse Physical Therapy Start date: Responsible MD post discharge contact info: PCP Primary Care Provider: Mary Kathleen Barton, [employer] [phone] Discharge References/Attachments Direct Oral Anticoagulants: Non-Vitamin K Antagonist (Vietnamese) documented in this encounter Discharge Instructions * [...] bowel movement. You can also take an ooiq-tes-fpqgkzd medication, Miralax if needed to combat constipation. [...] as much as possible. Call your doctor ([phone]) if you develop: 1. Fever greater than 100.5 2. Severe nausea or vomiting 3. Increasing pain that is not controlled by pain medications 4. Increasing redness, swelling, or drainage from incisions 5. Change in sensation FOLLOW-UP APPOINTMENTS: 1. You will have follow-up appointments at [facility] as indicated below in Future Appointment and Orders. 2. You will need to have x-rays prior to your follow-up appointmen. Please come to Radiology, desk 3T, 1 hour BEFORE that appointment for those x-rays. Future Appointments Date Time Provider Department Center 03/20/2021 11:[address] [facility] DX ROOM [address] [facility] Rad 03/20/2021 12:40 PM Juan Marie MD [facility] ORTH [address] [place] [address] If you have questions or concerns: Saturday through Saturday, 8 AM - 5 PM, please call Dr. Juan Marie MD's office at . If it is after 5 PM, the weekend, or holidays, please call and ask to speak with theOrthopedic resident on-call. * Attachments The following attachments cannot be sent through Care Everywhere. * Direct Oral Anticoagulants: Non-Vitamin K Antagonist (Vietnamese) documented in this encounter Medications at Time of Discharge Medication Sig Dispensed Refills Start Date End Date Rizatriptan (MAXALT-PROJECT INTERN) 5 mg Tablet, Rapid Dissolve Prn for [...] QHS 01/16/2021 fluticasone propionate (Flonase) 50 mcg/actuation [place], Suspension SHAKE LIQUID AND USE 2 SPRAYS [...] BX performed by Iggy Lopez MD at [facility] ENDOSCOPY ??? PRO COLONOSCOPY, DIAGNOSTIC N/A 08/05/2014 COLONOSCOPY, DIAGNOSTIC performed by Iggy Lopez MD at [facility] ENDOSCOPY Social History: Patient lives alone in [...] and measurable assessment of functional outcome. Pager: [phone] DAVID CHAN, OT 02/18/2021 Occupational Therapy Rehabilitation [...] BX performed by Iggy Lopez MD at [facility] ENDOSCOPY ??? PRO COLONOSCOPY, DIAGNOSTIC N/A 08/05/2014 COLONOSCOPY, DIAGNOSTIC performed by Iggy Lopez MD at [facility] ENDOSCOPY Active Non-Hospital Problems Diagnosis ??? Arthrofibrosis [...] Mobility: Supine to Sit: independent with leg primer and powder canning leader and increased time/effort Sit to Supine: not [...] for this consult. Time IN / OUT: 0657-8900 Total Minutes, Physical Therapy: 60 Billing Code: [...] Time Provider Department Center 03/20/2021 11:[address] [facility] DX ROOM [address] [facility] Rad 03/20/2021 12:40 PM Juan Marie MD [facility]TH [address] [place] [address] * Vanessa Perez RN - 02/18/2021 5:22 [...] Soni RN - 02/17/2021 6:48 PM EDT [id number] : Break coverage done, vs's, patient denies [...] s/p R TKA revision for arthrofibrosis, 02/17/2021 Frakn Resolved Hospital Problems No resolved problems to [...] Time Provider Department Center 03/20/2021 11:[address] [facility] DX ROOM [address] [facility] Rad 03/20/2021 12:40 PM Juan Marie MD [facility] ORTH 3C [facility] documented in this encounter H&P Notes * Brenda Olivera MD - 02/17/2021 10:42 AM EDT Patient Name: Pari Lackey Patient Age: 70 y.o. Birthdate: 1950 Admit date: 02/17/2021 Attending Physician: Juan Marie MD 24-HOUR UPDATE Pari Lackey was seen in [facility]. No interval events or changes in health [...] COVID test: Lab Results Component Value Date [id number] Not Detected 02/17/2021 Past medical History: Past [...] Echeverria would be surrogate decision maker per [place] surrogate decisionmaking law. (Only good for 180 days) Any patient receiving care at [facility] must abide by [place] law. The hierarchy for surrogate decision making [...] (i) The agent with financial power of diabetes clinical manager or a conservator appointed in accordance with RSA 464-A. (j) The guardian of the patient???s estate. Current Coping/Education/Information Needs: none Current Functional Ability: Assistive Equipment Functional Status Prior to Admission: Independent, Assistive Equipment Home Environment: Others in the home: alone (Pt's sister will be staying with her for several days after discharge.). Current Living Arrangements: home/apartment/condo (Lives in a halfway housing unti.). Accessibility Concerns:has 2 JAY JAY. Current DME: walker - rolling (Also has available at home: CPAP, cane, commode and shower seat) Home Address confirmed as: [address] [facility] [address] Physical address is: [address], [address], [facility] [address] Social & Family Supports: All names listed [...] Product type* / Secondary Insurance: [employer] [place] Prescription Coverage: Yes Preferred Pharmacy: [id number] [place], [place] - [address] [place] [address] AT [address] [facility] & [address] [address] [place], [place] - [address] [facility] [address] [facility] [address] [facility] [address] Status: Patient is a : No Primary Care Provider: Mary Barton APRN [phone] Patient/Caregiver Goals of Treatment: return home Potential Needs for Transition of Care: home health care Agency Referrals: The patient/caregivers were provided with a list of home health agencies which serve their preferred geographic location and they were educated about their right to choose where referrals are placed. Patient/Caregiver requests referral to [facility]. [facility]. PHONE: [phone] FAX: [phone] Transportation: no concerns Transportation Anticipated: family or friend will provide Concerns to be Addressed: discharge planning Assessment: Patient is admitted to ortho service for revision of Right TKA Plan: A member of the Care Management team will continue to monitor progress, follow for continuityof care and assist with transition of care planning. Bianka MIRANDA, RN, [facility] Weekend Case Management * Op Note - Brenda Olivera MD - 02/17/2021 12:22 PM EDT [facility] Operative Note Patient Name: Pari Lackey : [id number] MR#: [id number] Case Date: 02/17/2021 Surgeon: Surgeon(s) and Role: [...] right Total Knee Arthroplasty Revision Complete (CPT 87241) Anesthesia: Spinal , Adductor Canal Block (performed in block area) IVF: 1L of crystaloid Estimated Blood Loss: 450ml Urine Output: 700ml Drains: none Specimens removed during surgery: None Surgical Closure: Primary Closure - skin incision is completely closed without any wires, manolo, drains or other devices Complications: None apparent Tourniquet: 250mmHg for 73 minutes Tibia: Attune revision size 2, stem: [id number], 6mm offset Femur: Attune revision size 2 [...] bone. Quarter inch oste otome and reverse Rodrigo curette was used to remove cement. Tibial [...] then placed the tibial trial with a [id number] offset stem and size 2 tibia. Happy [...] po/iv q 8 hours PRN nausea ?? Guillen out prior to PACU ?? Encourage voiding [...] Implant Name Type Inv. Item Serial No. Metal Casting Trades Worker Lot No. LRB No. Used Action CEMENT BONE HIGH VISCOSITY 40GM SINGLE DOSE PMMA SMARTSET ([id number]) - [id number] IMPLANTS CEMENT BONE HIGH VISCOSITY 40GM SINGLE DOSE PMMA SMARTSET ([id number]) [employer]AY [id number] Right 3 Implanted STEM EXT KNEE [id number] TROY (6472363) (AUTOREQ) - [id number] IMPLANTS STEM EXT KNEE [id number] TROY (2509943) (AutoReq) [employer] [id number] Right 1 Implanted COMP FEMORAL KNEE SZ 3 RIGHT TROY CR (4409073) (AUTOREQ) - [id number] IMPLANTS COMP FEMORAL KNEE SZ 3 RIGHT TORY CR (5188894) (AutoReq) [employer] [id number] Right 1 Implanted AUGMENT FEM KNEE 8MM SIZE 3 DIST ATTUNE (1958970) (AUTOREQ) - [id number] IMPLANTS AUGMENT FEM KNEE 8MM SIZE 3 DIST ATTUNE (6519775) (AutoReq) [employer] MADAY ABHAY [id number] Right 1 Implanted AUGMENT FEM KNEE 8MM SIZE 3 DIST ATTUNE (3990589) (AUTOREQ) - [id number] IMPLANTS AUGMENT FEM KNEE 8MM SIZE 3 DIST ATTUNE (2550250) (AutoReq) [employer]AD[employer] ABHAY [id number] Right 1 Implanted ADAPTER STEM EXT KNEE 6MM (4510544) (AUTOREQ) - [id number] IMPLANTS ADAPTER STEM EXT KNEE 6MM (4424620) (AutoReq) [employer] [id number] Right 1 Implanted STEM EXT KNEE [id number] PRSFT STR (3398508) (AUTOREQ) - [id number] IMPLANTS STEM EXT KNEE [id number] PRSFT STR (5815348) (AutoReq) [employer] [id number] Right 1 Implanted COMP PATELLAR KNEE 32MM TROY MEDIALIZED DOMED POLY (1669285) (AUTOREQ) - [id number] IMPLANTS COMP PATELLAR KNEE 32MM TROY MEDIALIZED DOMED POLY (9223632) (AutoReq) [employer] MADAY ABHAY [id number] Right 1 Implanted Attune Knee System Revision Tibial Base, Fixed Bearing, Size 2 Cemented IMPLANTS [id number] Right 1 Implanted INSERT TIBIAL 12MM SZ 3 FIX POLY ATTUNE ([id number]) (AUTOREQ) - [id number] IMPLANTS INSERT TIBIAL 12MM SZ 3 FIX POLY ATTUNE (6788534) (AutoReq) [employer] MAD[employer] ABHAY [id number] Right 1 Implanted BARRIER ADHESION 5X6IN AMDOMINAL-PELVIC BIORESORBABLE ([id number]) - [id number] IMPLANTS BARRIER ADHESION 5X6IN AMDOMINAL-PELVIC BIORESORBABLE (3531248) [employer] [id number] Right 1 Implanted Associated attestation - Juan [...] 1:00 PM EDT Office [place] [address] Julian Kate MD [facility] [place] [address] documented as of this encounter Procedures Procedure [...] arthrofibrosis Revise Knee Joint Replace, All Parts (72168) 02/17/2021 11:44 AM EDT failed TKA - severe arthrofibrosis RAPID COVID-19 PCR ([facility]) STAT 02/17/2021 9:56 AM EDT TOTAL KNEE REVISION ARTHROPLASTY, COMPLETE Routine 02/17/2021 9:06 AM EDT IMPLANTABLE DEVICES SCAN 02/17/2021 12:00 AM EDT documented in this encounter Results * (ABNORMAL) Differential, Automated (02/18/2021 1:54 AM EDT) Neutrophil % 74.5 % [facility] Neutrophil Absolute 4.59 1.70 - 6.10 x10(3)/mc L [facility] Lymph % 13.8 % [facility] Lymphocytes Abs 0.8(L) 0.9 - 3.2 x10(3)/mc L [facility] Monocyte % 9.3 % [facility] Monocyte Abs 0.6 0.3 - 0.9 x10(3)/mc L [facility] Eos % 1.8 % [facility] Eosinophils Abs 0.1 0.0 - 0.4 x10(3)/mc L [facility] Basophil % 0.3 % [facility] Baso Absolute 0.0 0.0 - 0.1 x10(3)/mc L [facility] Immature Gran % 0.30 % [facility] Comment: Immature granulocytes(IG's)percentage and absolute count will include metamyelocytes, myelocytes, and promyelocytes. Blood smears from CBCs yielding IG's will be scanned manually for concordance. If this scan disagrees with the automated IG or if promyelocytes are noted, a manual differential will be performed. Immature Gran Absolute 0.02 0.00 - 0.04 x10(3)/mc L [facility] Blood Venous Draw / Unknown 02/18/2021 1:54 AM EDT 02/18/2021 2:22 AM EDT Narrative Resulting Agency Comment Spec In Lab Rashida Olivas APRN HEMATOLOGY ORDERA BLES [facility] [place] [address] * (ABNORMAL) Hemogram (02/18/2021 1:54 AM EDT) White Blood Cell 6.2 4.0 - 9.5 x10(3)/mc L [facility] Red Blood Cell 3.45(L) 4.00 - 5.21 x10(6)/mc L [facility] Hemoglobin 10.4(L) 11.7 - 15.5 g/dL [facility] Hematocrit 32.9(L) 35.7 - 45.8 % [facility] Mean Cell Volume 95.4(H) 82.6 - 94.4 fL [facility] Mean Cell Hemoglobin 30.1 27.1 - 32.0 pg [facility] Mean Cell Hemoglobin Concentration 31.6(L) 31.7 - 35.0 g/dL [facility] Platelet 111(L) 145 - 357 x10(3)/mc L [facility] RDW Standard Deviation 45.1 37.0 - 46.0 fL [facility] RDW coefficient of variation 13.0 11.5 - 14.1 % [facility] Mean Platelet Volume 11.6 7.6 - 12.9 fL [facility] NRBC% auto 0.0 % [facility] NRBC Absolute 0.000 0.000 - 0.000 x10(3)/mc L [facility] Blood Venous Draw / Unknown 02/18/2021 1:54 AM EDT 02/18/2021 2:22 AM EDT Narrative Resulting Agency Comment Spec In Lab Rashida Olivas APRN HEMATOLOGY ORDERA BLES Performing Organization Address City/[facility]/ZIP Co de Phone Number [facility] [place] [address] * Lavender Tube HOLD (02/18/2021 1:54 AM EDT) Lavender Hold Sample in lab. [facility] Blood Venous Draw / Unknown 02/18/2021 1:54 AM EDT 02/18/2021 2:22 AM EDT Brenda Olivera MD HEMATOLOGY ORDERABLE S Performing Organization Address City/[facility]/ZIP Co de Phone Number [facility] [place] [address] * (ABNORMAL) Basic Metabolic Panel (non-fasting) (02/18/2021 1:54 AM EDT) Glucose 128 65 - 199 mg/dL [facility] Comment:Diabetes: >=200 mg/d L plus symptoms Blood Urea Nitrogen 16 8 - 18 mg/dL [facility] Creatinine 0.83 0.70 - 1.20 mg/dL [facility] Sodium 138 135 - 145 mmol/L [facility] Potassium 4.1 3.5 - 5.0 mmol/L [facility] Comment: Please note: ??Patients with WBC >100,000 may have falsely elevated Potassium levels. ??For accurate Potassium quantification in these patients send serum separator tube (gold top) for subsequent determinations. ??Contact the Clinical Chemistry Laboratory if there are any questions. Chloride 106 98 - 107 mmol/L [facility] Carbon Dioxide 25 22 - 31 mmol/L [facility] Anion Gap 7 5 - 15 mmol/L [facility] Calcium 8.3(L) 8.5 - 10.5 mg/dL [facility] Est Glomerular Filtration Rate 72 >=60 mL/min/1. 73 m?? [facility] Comment: This patient? s estimated glomerular [...] Lab Juan Marie MD CHEMISTRY ORDERABLE S [facility] [place] [address] * XR Knee 1-2 Views Right (Generic) [...] who have questions please contact the health careers counsellor that requested your imaging first. ? Electronically signed by: Oswaldo Lebron MD, [facility] ([phone]), at 02/17/2021 3:43 PM Narrative 02/17/2021 3:43 PM EDT EXAMINATION: XR [...] patients who have questions please contactthe health careers counsellor that requested your imaging first. Electronically signed by: Oswaldo Lebron MD, [facility]([phone]), at 02/17/2021 3:43 PM Juan Marie MD IMG DX ORDERABLES * Cell Count Body Fluid Knee Joint Fluid (02/17/2021 12:28 PM EDT) Body Fluid Source Knee Fl [facility] Color, Fld Red [facility] Appearance, Fld Cloudy [facility] WBC Count, Fld 253 /mcl [facility] Comment: All body fluid results should always be interpreted in light of the total clinical presentation of the patient, including clinical history, data from additional tests and other appropriate information. Called by: marino, Read back by: Rashida molina, Date-Time:02-17-21 3011. Polymorphonuclear cells BF % 46 % [facility] Comment: Polymorphonuclear cell percent and absolute values may contain Neutrophils, Eosinophils, and Basophils. Body fluid smear will be scanned manually for concordance. Mononuclear cells BF % 54 % [facility] Comment: Mononuclear cell percent and absolute values may contain Lymphocytes and Monocytes. Body fluid smear will be scanned manually for concordance. Polymorphonuclear cells BF ABS 117 /mcl [facility] Comment: Polymorphonuclear cell percent and absolute values may contain Neutrophils, Eosinophils, and Basophils. Body fluid smear will be scanned manually for concordance. Mononuclear cells BF ABS 136 /mcl [facility] Comment: Mononuclear cell percent and absolute values may contain Lymphocytes and Monocytes. Body fluid smear will be scanned manually for concordance. Knee Joint Fluid 02/17/2021 12:28 PM EDT 02/17/2021 12:36 PM EDT Narrative Resulting Agency Comment Spec In Lab Juan Marie MD BODY FLUIDS AND STO OLS ORDERABLES [facility] [place] [id number] * COVID-19 PCR (02/17/2021 9:56 AM EDT) SARS-CoV-2 RNA (Rapid) Not Detected Not Detected [facility] Comment: This result should be interpreted [...] using the Simplexa COVID-19 Direct Assay by Guarnic as authorized by the FDA issued Emergency [...] Department of Pathology and Laboratory Medicine at [facility], certified under the Clinical Laboratory Improvement Amendments [...] fact sheets at the following FDA website: https://www.fda.gov/medical-devices/rxblwkephmk-mzaigam-2883-remla-88-gfzreqgpq- use-a pzixuvpxrtqmj-ktuvfao-qizvtif/ggtwy-cnxqnkgzshq-dchj SARS-CoV-2 Source DAMPER FITTER Swab [facility] Nasopharyngeal Swab 02/18/20 9:56 AM EDT 02/17/2021 12:29 PM EDT Comment:Symptoms->Surveillan ce Narrative Resulting Agency Comment Spec In Lab Juan Marie MD MICROBIOLOGY - [facility] ORDERABLES [facility] [place] [address] * SCAN DOC: IMPLANTABLE DEVICES (02/17/2021 12:00 AM EDT) Unknown MEDIA MGR SCAN EXT O RDR/RSLT documented in this encounter Visit Diagnoses Not on filedocumented in this encounter Admitting Diagnoses Diagnosis S/P [...] Given 02/17/2021 5:11 PM EDT 1,000 mg BUpivacaine (pf) (Marcaine) (2.5 mg/mL) 0.25% injection ONCE PRN, Starting on Sat02/17/21 at 1222, Until 02/18/21 at 1700, Intra-Operative (Intra-Procedure), Routine Given 02/17/2021 2:30 PM EDT 50 mLs 19- Surgical Site Given 02/17/2021 12:22 PM EDT 10 mLs 1 9- Surgical Site busPIRone (Buspar) tablet 20 mg 20 mg, Oral, 2 TIMES DAILY, First dose on Sat02/17/21 at 2100, Until Discontinued, Routine Given 02/18/2021 9:46 AM EDT 20 mg Given 02/17/2021 9:16 PM EDT 20 mg cloNIDine (pf) (Duraclon) (100 mcg/mL) Epidural injection ONCE PRN, Starting on Sat02/17/21 at 1430, Until 02/18/21 at 1700, Intra-Operative (Intra-Procedure), Routine Given 02/17/2021 2:30 PM EDT 50 mcg 19- Surgical Site dexamethasone (Decadron) tablet 4 mg 4 mg, Oral, DAILY, 2 doses, First dose on 02/18/21 at 0900, Last dose on 02/19/21 at 0900, Routine Given 02/18/2021 9:49 AM EDT 4 mg escitalopram (Lexapro) tablet 20 mg 20 mg, Oral, DAILY, First dose on Sat02/18/21 at 0900, Until Discontinued, Routine Given 02/18/2021 9:46 AM EDT 20 mg gabapentin (Neurontin) capsule 200 mg 200 mg, Oral, EVERY MORNING, First dose on Sat02/18/21 at 0930, Until Discontinued, Routine Given 02/18/2021 9:54 AM EDT 200 mg gabapentin (Neurontin) capsule 200 mg 200 mg, Oral, DAILY WITH LUNCH, First dose on Sat02/18/21 at 1200, Until Discontinued, Routine Given 02/18/2021 12:03 PM EDT 200 mg gabapentin (Neurontin) capsule 300 mg 300 mg, Oral, NIGHTLY, First dose on Sat02/17/21 at 2100, Until Discontinued, Routine Given 02/17/2021 9:17 PM EDT 300 mg HYDROmorphone (Dilaudid) tablet 2-6 mg 2-6 mg, Oral, EVERY 4 HOURS PRN, Starting on Sat02/17/21 at 1707, Until Sat02/18/21 at 1700, Pain, Give 2 mg for mild pain (1-3), 4 mg for moderate pain (4-6) or 6 mg for severe pain (7-10) DO NOT exceed a total of 6 mg in 4 hours, Routine Given 02/18/2021 9:46 AM EDT 4 mg Given 02/17/2021 5:11 PM EDT 4 mg ketorolac (Toradol) (30 mg/mL) injection ONCE PRN, Starting on Sat02/17/21 at 1430, Until Sat02/18/21 at 1700, Intra-Operative (Intra-Procedure), Routine Given 02/17/2021 2:30 PM EDT 30 mg 19- Surgical Site levothyroxine (Synthroid) tablet 50 mcg 50 mcg, Oral, EVERY MORNING, First dose on Sat02/18/21 at 0600, Until Discontinued, Routine Given 02/18/2021 5:13 AM EDT 50 mcg losartan (Cozaar) tablet 50 mg 50 mg, Oral, DAILY, First dose on Sat02/18/21 at 0900, Until Discontinued, Routine Given 02/18/2021 9:46 AM EDT 50 mg multivitamin with minerals (Thera M) tablet 1 tablet 1 tablet, Oral, DAILY, First dose on 02/18/21 at 0900, Until Discontinued, Routine Given 02/18/2021 9:46 AM EDT 1 tablet ondansetron (pf) (Zofran) (2 mg/mL) injection 4 mg 4 mg, Intravenous, EVERY 8 HOURS PRN, Starting on Sat02/17/21 at 2003, Until 02/18/21 at 1700, Nausea, May repeat [...] Given 02/18/2021 9:47 AM EDT 20 mg povidone-iodine (Betadine Ophthalmic Prep) 5 % ophthalmic solution ONCE PRN, Starting on Sat02/17/21 at 1222, Until 02/18/21 at 1700, Intra-Operative (Intra-Procedure), Routine Given 02/17/2021 12:22 PM EDT 30 mLs 19- Surgical Site senna-docusate (Pericolace) 8.6-50 mg per tablet 2 [...] CONTINUOUS, Starting on Sat02/17/21 at 1545, Until Sat02/18/21 at 1700, Recovery (Recovery-Hospital Unit) New Bag [...] Routine 09 (Given - Provider: Analisa Torre RN) dexamethasone (Decadron) tablet 4 mg 4 mg, Oral, DAILY, 2 doses, First dose on 02/18/21 at 0900, Last dose on 02/19/21 at 0900, Routine 0949 (Given - Provid er: Pari Terry RN) escitalopram (Lexapro) tablet 20 mg 20 mg, Oral, DAILY, First dose on 02/18/21 at 0900, Until Discontinued, Routine 0946 (Given - Provid er: Pari Terry RN) fluticasone propionate (Flonase) 50 mcg/actuation nasal spray 2 spray 2 spray, Each Nare, DAILY, First dose on 02/18/21 at 0900, Until Discontinued, Routine 0900 (Not Given - Provider: Pari Terry RN - Reason: Patient/family refused) gabapentin (Neurontin) capsule 200 mg 200 mg, Oral, EVERY MORNING, First dose on 02/18/21 at 0930, Until Discontinued, Routine 0954 (Given - Provid er: Pari Terry RN) gabapentin (Neurontin) capsule 200 mg 200 mg, Oral, DAILY WITH LUNCH, First dose on Sat02/18/21 at 1200, Until Discontinued, Routine 1203 (Given - Provid er: Pari Terry RN) gabapentin (Neurontin) capsule 300 mg 300 mg, Oral, NIGHTLY, First dose on Sat02/17/21 at 2100, Until Discontinued, Routine 2116 (Given - Provider: Vanessa Perez RN) gabapentin (Neurontin) capsule 600 mg (COMPLETED) 600 mg, Oral, ONCE, 1 dose, On Sat02/17/21 at 1000, Administer on arrival in Same Day Program, Day of Surgery (Day of Procedure), Routine 950 (Given - Provider: Analisa Torre RN - Comment: Pt. took 200 mg at home this am already) levothyroxine (Synthroid) tablet 50 mcg 50 mcg, Oral, EVERY MORNING, First dose on 02/18/21 at 0600, Until Discontinued, Routine 512 (Given - Provid er: Vanessa Perez RN) [...] Until Discontinued, DO NOT CRUSH OR OPEN 946 (Given - Provid er: Pari Terry RN) polyethylene glycoL (Miralax) packet 17 g 17 g, Oral, 2 TIMES DAILY, First dose on Sat02/17/21 at 2100, Until Discontinued, Routine 2116 (Not Given - Provider: Vanessa Perez RN - Reason: Patient/family refused) 09 (Not Given - Provider: Pari Terry RN [...] 2116 (Given - Provider: Vanessa Perez RN) 945 (Given - Provider: Pari Terry RN) simvastatin (Zocor) tablet 20 mg 20 mg, Oral, DAILY, First dose on 02/18/21 at 0900, Until Discontinued 945 (Given - Provid er: Pari Terry RN) sodium chloride 0.9 % (flush) (BD PosiFlush Normal Saline 0.9) flush 5 mL 5 mL, Intravenous, 2 TIMES DAILY, First dose on Sat02/17/21 at 2100, Until Discontinued, Recovery (Recovery-Hospital Unit), Routine 2119 (Given - Provider: Vanessa Perez RN) 0948 [...] Madrid RN) 0240 (New Bag - Provider: Dave Jones RN) PRN Medication Order 02/16/2021 02/17/2021 [...] 6 HOURS PRN, Starting on Sat02/17/21 at 2002, Until 02/18/21 at 1700, Pain, Routine ketorolac [...] Procedure), Routine 1015 (Given - Provider: Analisa Trore RN) ondansetron (pf) (Zofran) (2 mg/mL) injection [...] Unit) documented in this encounter Care Teams Accountant Manager Relationship Specialty Start Date End Date Mary Barton, KALLI PCP - General Family Medicine 11/15/20 documented as of this encounter
--- OUTSIDE RECORDS SUMMARY | 2024-01-07 02:47 | XMS_ITS | Encounter Summary ---
Author Organization [facility] [place] [address] Care Team Providers Care Manager Administrative Name Role Phone Jamila Oglesby APRN Primary Care Provider [phone] Encounter Details Date Type Department Care Team (Late st Contact Info) Description 08/06/2016 - 08/06/2016 11:59 PM EDT Hospital Encounter [place] [phone] Sincere Machado MD [facility] [place] [address] Pain Discharge Disposition: Home Social History Tobacco Use Types Packs/Day Years Used Date Smoking Tobacco: Former Cigarettes 1 20 0 08/05/1974 - 08/05/1994 Alcohol Use Standard Drinks/Week Comments No 0 (1 standard drink = 0.6 oz pur e alcohol) rare Sex and Gender Information Value Date Recorded Sex Assigned at Not on file Gender Identity Not on file Sexual Orientation Not on file documented as of this encounter Medications at Time of Discharge Medication Sig Dispensed Refills Start Date End Date cholecalciferol, Vitamin D3, 400 unit Tablet Take 400 Units by mouth daily. lisinopril (PRINIVIL;ZESTRIL) 2.5 mg Tablet Take 2.5 mg by mouth daily. 11/29/2017 aspirin 81 mg Tablet, Delayed Release (E.C.) Take 81 mg by mouth daily. 02/18/2021 atorvastatin (LIPITOR) 10 mg Tablet Take 10 mg by mouth daily. 11/29/2017 UNKNOWN TO PATIENT Anti depress for SAD 0 02/06/2021 documented as of this encounter Plan of Treatment Upcoming Encounters Date Type Department Care Team (Late st Contact Info) Description 02/17/2024 1:00 PM EDT [place] [address] Julian Kate MD [facility] [place] [place] [address] documented as of this encounter Procedures Procedure Name Priority Date/Time Associated Diagnosis Comments FILM LIBRARY STORAGE ONLY MR HEAD Routine 08/06/2016 12:00 AM EDT Pain documented in this encounter Results * Film Library- Storage Only MR Head (08/06/2016 12:00 AM EDT) Narrative [facility] - 08/08/2016 12:00 PM EDT This exam is for storage only and is auto-finalizing. Sincere Machado MD IMG FILM LIBRARY ORDERABLES Performing Organization Address City/State/[facility] Co de Phone Number [place], [place] documented in this encounter Visit Diagnoses Diagnosis Pain Generalized pain documented in this encounter Care Teams Manager Administrative Relationship Specialty Start Date End Date Jamila Oglesby APRN PCP - General 07/23/14 09/19/17 documented as of this encounter
--- OUTSIDE RECORDS SUMMARY | 2024-01-07 02:47 | XMS_ITS | Encounter Summary ---
Author Organization [facility] [place] [address] Care Team Providers Care Banbury Mixer Operator Name Role Phone Jamila Oglesby APRN Primary Care Provider [phone] Encounter Details Date Type Department Care Team (Late st Contact Info) Description 08/03/2016 12:05 AM EST - 08/03/2016 11:59 PM [facility] Hospital Encounter [place] [phone] Sincere Machado MD [facility] [address] Pain Discharge Disposition: Home Social History Tobacco [...] 1:00 PM EDT Office [place] [address] Julian Kate MD [facility] [place] [address] documented as of this encounter Procedures Procedure Name Priority Date/Time Associated Diagnosis Comments FILM LIBRARY STORAGE ONLY CT HEAD Routine 08/03/2016 12:05 AM EST Pain documented in this encounter Results * Film Library- Storage Only CT Head (08/03/2016 12:05 AM EST) Narrative [facility] - 08/08/2016 12:02 PM EDT This exam is for storage only and is auto-finalizing. Sincere Machado MD IM FILM LIBRARY ORDERABLES Performing Organization Address City/State/[facility] Co de Phone Number [place], [place] documented in this encounter Visit Diagnoses Diagnosis Pain Generalized pain documented in this encounter Care Teams Banbury Mixer Operator Relationship Specialty Start Date End Date Jamila Oglesby APRN PCP - General 07/23/14 09/19/17 documented as of this encounter
--- OUTSIDE RECORDS SUMMARY | 2024-01-07 02:47 | XMS_ITS | Encounter Summary ---
Author Organization [facility] [place] [address] Care Team Providers Care Service Mechanic Name Role Phone Magan Haq MD Primary Care Provider [phone] Encounter Details Date Type Department Care Team (Late st Contact Info) Description 03/20/2012 Ancillary Procedure [place] [address] Nadege Mcgregor PA [address] [place] [address] Social History Tobacco Use Types Packs/Day Years [...] 1:00 PM EDT Office Visit [place] [phone] Julian Kate MD [facility] [place] [address] documented as of this encounter Procedures Procedure Name Priority Date/Time Associated Diagnosis Comments FILM LIBRARY STORAGE ONLY DX KNEE Routine 03/20/2012 12:00 AM EDT documented in this encounter Results * Film Library- Storage Only DX Knee (03/20/2012 12:00 AM EDT) Narrative [facility] - 05/23/2020 1:28 PM EST This exam is auto-finalizing. It's purpose is for storage only. Nadege BECKHAM IMG FILM LIBRARY ORDERABLES [place], [place] documented in this encounter Visit Diagnoses Not on filedocumented in this encounter Care Teams Service Mechanic Relationship Specialty Start Date End Date Magan Haq MD [address] [place] [id number] PCP - General 04/18/10 07/22/14 documented as of this encounter
--- OUTSIDE RECORDS SUMMARY | 2024-01-07 02:47 | XMS_ITS | Encounter Summary ---
Author Organization [facility] [place] [address] Care Team Providers Care Digital Program Manager Name Role Phone Nadege Mcgregor Primary Care Provider + Encounter Details Date Type Department Care Team (Late st Contact Info) Description 05/19/2020 Ancillary Procedure [place] [phone] Nadege Mcgregor PA [address] [place] [address] Social History Tobacco Use Types Packs/Day Years [...] 1:00 PM EDT Office [place] [phone] Julian Kate MD [facility] [place] [address] documented as of this encounter Procedures Procedure Name Priority Date/Time Associated Diagnosis Comments FILM LIBRARY STORAGE ONLY CT LOWER EXTREMITY Routine 05/19/2020 12:00 AM EST documented in this encounter Results * Film Library- Storage Only CT Lower Extremity (05/19/2020 12:00 AM EST) Narrative [facility] - 05/23/2020 1:33 PM EST This exam is auto-finalizing. It's purpose is for storage only. Nadege BECKHAM IMLita FILM LIBRARY ORDERABLES Performing Organization Address City/State/[facility] Co de Phone Number [place], [place] documented in this encounter Visit Diagnoses Not on filedocumented in this encounter Care Teams Digital Program Manager Relationship Specialty Start Date End Date Nadege Mcgregor PA PCP - General Orthopaedic Surgery 09/20/17 11/14/20 documented as of this encounter
--- OUTSIDE RECORDS SUMMARY | 2024-01-07 02:47 | XMS_ITS | Encounter Summary ---
Author Organization [facility] Address [facility] [place] [address] Care Team Providers Care Pot Sander Name Role Phone Jamila Oglesby APRN Primary Care Provider [phone] Reason for Visit * Reason Comments Diplopia * Consultation (Urgent) - Specialty Diagnoses / Procedures Referred By Temitope michaels Referred To Contact Ophthalmology Diagnoses DIPLOPIA Procedures CONSULT, TEST & TREAT Jamila Oglesby APRN [address] [place] [address] Sincere Machado MD [facility] [place] [address] Referral ID Status Reason Start Date Expiration Date V isits Requested Visits Authorized [id number] 08/07/2016 08/07/2017 1 1 Encounter Details Date Type Department Care Team (Late st Contact Info) Description 08/10/2016 10:00 AM EDT Office [place] [address] Sincere Machado MD [facility] [place] [address] Diplopia; Visual field defect, unspecified Social History Tobacco Use Types Packs/Day Years [...] as of this encounter Progress Notes * Sincere Montague MD - 08/10/2016 10:00 AM EDT Pari Lackey has a history of colon cancer, s/p resection, with no recurrences. She also has HTNand HLD. She noted several migraine episodes in early july, which resolved. She noted binocular vertical diplopia since 08/01/16, with some left periorbital ache. The pain has been improving gradually. She hada CT of her head and an MRI of the brain without contrast, which was normal. On examination today, Pari Lackey exhibited normal visual function, color vision, with no evidence of a relative afferent pupillary defect that would suggest an underlying optic nerve dysfunction. Static visual minaya were full bilaterally. Sensorimotor examination revealed full extraocular movements. She measured a left hypertropia which increased in right gaze and left head tilt. She demonstrated poor stereopsis. Dilated eye examination revealed healthy optic nerves and normal retinal findings. She had some excyclotorsion of the macula, left greater than right. Palpation of her supraorbital notch and infraorbital nerve revealed no tenderness. The ache appearsto non specific in the eyelid region. 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 I have asked her to take some over the counter analgesics in a scheduled fashion, and call back if the pain persists in a week or so. We can get some orbital imagine to assess for orbital inflammation. I had also asked the PCP to obtain GCA labwork yesterday, all of which has come back negative. She denies any GCA symptoms. She will return to see Sheila Juan and Dr. Beaulieu in 6-8 weeks. If the left hypertropia is worsening, she should have an MRI brain and orbits WITH contrast. Other considerations are myasthenia gravis, however there were no clinical findings today to support that diagnosis. documented in this encounter Plan of Treatment Upcoming Encounters Date Type Department Care Team (Late st Contact Info) Description 02/17/2024 1:00 PM EDT [facility] [place] [address] Julian Kate MD [facility] [place] [id number] documented as of this encounter Procedures Procedure Name Priority Date/Time Associated Diagnosis Comments FUNDUS PHOTOS - OU- BOTH EYES Routine 08/10/2016 2:53 PM EDT Diplopia SENSORIMOTOR EXAM Routine 08/10/2016 2:5 2 PM EDT Diplopia OCT OPTIC NERVE - OU - BOTH EYES Routine 08/10/2016 1:19 PM EDT Visual field defect, unspecified AUTOMATED VISUAL FIELD - EXTENDED - OU- BOTH EYES Routine 08/10/2016 1:19 PM EDT Diplopia documented in this encounter Results * FUNDUS PHOTOS - OU- BOTH EYES (08/10/2016 2:53 PM EDT) Anatomical Region Laterality Modality Other Narrative 08/10/2016 2:53 PM EDT Right Eye Progression has been stable. Disc findings include normal observations. Vessel findings include normal observations. Periphery findings include normal observations. Left Eye Progression has been stable. Disc findings include normal observations. Vessel findings include normal observations. Periphery findings include normal observations. Notes Normal discs- excyclotorsion of the macula Sincere Machado MD OPHTHALMOLOGY SE RVICES ORDERABLES * SENSORIMOTOR EXAM [WA SPECIAL EYE EXAM] - OU- BOTH EYES (08/10/2016 2:52 PM EDT) Anatomical Region Laterality Modality Other Narrative 08/10/2016 2:52 PM EDT Left hyper - incomitant Sincere Machado MD OPHTHALMOLOGY SE RVICES ORDERABLES * OCT OPTIC [id number] EYES (08/10/2016 1:19 PM EDT) Anatomical Region Laterality Modality Other Narrative 08/10/2016 1:19 PM EDT Right Eye Quality was good. Findings include normal observations. Temporal thickness was normal. Superior thickness was normal. Nasal thickness was normal. Inferior thickness was normal. Left Eye Quality was good. Findings include normal observations. Temporal thickness was normal. Superior thickness was normal. Nasal thickness was normal. Inferior thickness was normal. Notes Normal RNFL OU Sincere Machado MD OPHTHALMOLOGY SE RVICES ORDERABLES * AUTOMATED VISUAL FIELD - EXTENDED - OU- BOTH EYES (08/10/2016 1:19 PM EDT) Anatomical Region Laterality Modality Other Narrative 08/10/2016 1:19 PM EDT Right Eye Threshold was 24-2. Strategy was ERIK. Reliability was good. Findings include normal observations. Left Eye Threshold was 24-2. Strategy was ERIK. Reliability was good. Findings include normal observations. Sincere Machado MD OPHTHALMOLOGY SE RVICES ORDERABLES documented in this encounter Visit Diagnoses Diagnosis Diplopia Visual field defect, unspecified documented in this encounter Care Teams Pot Sander Relationship Specialty Start Date End Date Jamila Oglesby APRN PCP - General 07/23/14 09/19/17 documented as of this encounter
--- OUTSIDE RECORDS SUMMARY | 2024-01-07 02:47 | XMS_ITS | Encounter Summary ---
Author Organization [facility] [place] [address] Care Team Providers Care Mental Health Case Manager Name Role Phone Mary Barton APRN Primary Care Provider [phone] Encounter Details Date Type Department Care Team (Late st Contact Info) Description 11/06/2005 Orders Only [place] [address] Rome Wakefield MD [facility] [place] [address] Social History Tobacco Use Types Packs/Day Years [...] 1:00 PM EDT Office [place] [address] Julian Kate MD [facility] [place] [address] documented as of this encounter Procedures Procedure Name Priority Date/Time Associated Diagnosis Comments SURGICAL PATHOLOGY REPORT Routine 11/06/2005 8:10 AM EDT documented in this encounter Results * Surgical Pathology Report (11/06/2005 8:10 AM EDT) Surgical Pathology Report [id number] ? Location: The signing pathologist has (i) examined the relevant preparation(s) for the specimen(s) and (ii) rendered or confirmed the diagnosis(es). . ?Pathology Surgical Pathology Final Report Clinical Information Specimen Submitted: CONSULTATION CASE A - 5 slides labeled [id number], collection date 10/26/05. -06-1329 Report to: [facility] Department of Pathology [address] [place] [address] [place], [place] ??[address] Gross Description [facility] pathology slide(s) are reviewed. ??Refer to Diagnosis and Specimen Submitted for specific case information. For the full text of the [facility] report(s) please refer to Non- DH Documentation Pathology in the Clinical Information System (CIS). Microscopic Description Slides reviewed, microscopic description not recorded. Diagnosis CONSULTATION CASE A - Cecum, 85cm, endoscopic biopsies: Tubular adenoma fragments. B - Ascending colon, 74 cm; endoscopic biopsies Tubulo-villous adenoma. C - Left transverse colon, 53 cm; endoscopic biopsies: Tubulo-villous adenoma. 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 CR-0 11/14/05 KO 11/14/05 Verified by: ? Marva Adorno MD ?Pathologist ?(Electronic Signature) The attending pathologist whose signature appears on this report has reviewed all diagnostic slides and has edited the gross and/or microscopic portion of the report in rendering the final pathologic diagnosis. NUPUR HUTCHINSON 11/06/2005 8:10 AM EDT Rome Wakefield MD PATHOLOGY/CYTOLOGY ORDERABLES Performing Organization Address City/State/[facility] [place] Phone Number NUPUR HUTCHINSNO documented in this encounter Visit Diagnoses Not on filedocumented in this encounter Care Teams Mental Health Case Manager Relationship Specialty Start Date End Date Mary Barton, KALLI PCP - General Family Medicine 11/15/20 documented as of this encounter
--- OUTSIDE RECORDS SUMMARY | 2024-01-07 02:47 | XMS_ITS | Encounter Summary ---
Author Organization [facility] [place] [address] Care Team Providers Care Asbestos Handler Name Role Phone RenyJamila Lita MAHAN Primary Care Provider [phone] Reason for Visit * Reason Comments Patient Not Seen Encounter Details Date Type Department Care Team (Late st Contact Info) Description 03/27/2017 2:00 PM EDT Office [place] [address] Jossy Mena MD [facility] [place] [address] PATIENT NOT SEEN Social History Tobacco Use Types Packs/Day Years [...] as of this encounter Progress Notes * Jossy Mena MD - 03/27/2017 3:37 PM EDT This patient was not seen in this encounter. * Clive Gomes COA - 03/27/2017 2:05 PM EDT This patient was not seen in this encounter. documented in this encounter Plan of Treatment Upcoming Encounters Date Type Department Care Team (Late st Contact Info) Description 02/17/2024 1:00 PM EDT Office [place] [address] Julian Kate MD [facility] [place] [address] documented as of this encounter Visit Diagnoses Diagnosis DH PATIENT NOT SEEN documented in this encounter Care Teams Asbestos Handler Relationship Specialty Start Date End Date Jamila Oglesby APRN PCP - General 07/23/14 09/19/17 documented as of this encounter
--- OUTSIDE RECORDS SUMMARY | 2024-01-07 02:47 | XMS_ITS | Encounter Summary ---
Author Organization [facility] [place] [address] Care Team Providers Care Jewelry Salesperson Name Role Phone Nadege Mcgregor Primary Care Provider + Encounter Details Date Type Department Care Team (Late st Contact Info) Description 02/11/2020 Ancillary Procedure [place] [phone] Nadege Mcgregor PA [address] [place] [address] Social History Tobacco Use Types Packs/Day Years [...] 1:00 PM EDT Office [place] [phone] Julian Kate MD [facility] [place] [address] documented as of this encounter Procedures Procedure Name Priority Date/Time Associated Diagnosis Comments FILM LIBRARY STORAGE ONLY DX HIP Routine 02/11/2020 12:00 AM EDT documented in this encounter Results * Film Library- Storage Only DX Hip (02/11/2020 12:00 AM EDT) Narrative SHAHID - 05/23/2020 1:39 PM EST This exam is auto-finalizing. It's purpose is for storage only. Nadege BECKHAM IMLita FILM LIBRARY ORDERABLES Performing Organization Address City/State/[facility] Co de Phone Number [place], [place] documented in this encounter Visit Diagnoses Not on filedocumented in this encounter Care Teams Jewelry Salesperson Relationship Specialty Start Date End Date Nadege Mcgregor PA PCP - General Orthopaedic Surgery 09/20/17 11/14/20 documented as of this encounter
--- OUTSIDE RECORDS SUMMARY | 2024-01-07 02:47 | XMS_ITS | Encounter Summary ---
Author Organization [facility] [place] [address] Care Team Providers Care Material Handling Warehouse Supervisor Name Role Phone Nadege Mcgregor Primary Care Provider + Encounter Details Date Type Department Care Team (Late st Contact Info) Description 05/12/2020 Ancillary Procedure [place] [phone] Nadege Mcgregor PA [address] [place] [address] Social History Tobacco Use Types Packs/Day Years [...] 1:00 PM EDT Office [place] [phone] Julian Kate MD [facility] [place] [address] documented as of this encounter Procedures Procedure Name Priority Date/Time Associated Diagnosis Comments FILM LIBRARY STORAGE ONLY DX KNEE Routine 05/12/2020 12:00 AM EST documented in this encounter Results * Film Library- Storage Only DX Knee (05/12/2020 12:00 AM EST) Narrative SHAHID - 05/23/2020 1:39 PM EST This exam is auto-finalizing. It's purpose is for storage only. Nadege BECKHAM IMLita FILM LIBRARY ORDERABLES Performing Organization Address City/State/[facility] Co de Phone Number [employer] [place], [place] documented in this encounter Visit Diagnoses Not on filedocumented in this encounter Care Teams Material Handling Warehouse Supervisor Relationship Specialty Start Date End Date Nadege Mcgregor PA PCP - General Orthopaedic Surgery 09/20/17 11/14/20 documented as of this encounter
--- OUTSIDE RECORDS SUMMARY | 2024-01-07 02:47 | XMS_ITS | Encounter Summary ---
Author Organization [facility] [place] [address] Care Team Providers Care Yoke Setter Name Role Phone RenyJamila Lita MAHAN Primary Care Provider [phone] Encounter Details Date Type Department Care Team (Late st Contact Info) Description 08/23/2016 [place] [address] Sincere Machado MD [facility] [place] [address] Social History Tobacco Use Types Packs/Day Years [...] encounter Miscellaneous Notes * Telephone Encounter - Blaire Cummings COT - 08/23/2016 2:55 PM EDT LM for pt explaining that 10/16 BBS/MEZ combo appt is being changed to EMS (& BBS will see with)on 10/12 and to call if not convenient documented in this encounter Plan of Treatment Upcoming Encounters Date Type Department Care Team (Late st Contact Info) Description 02/17/2024 1:00 PM EDT Office [place] [address] Julian Kate MD [facility] [place] [address] documented as of this encounter Visit Diagnoses Not on filedocumented in this encounter Care Teams Yoke Setter Relationship Specialty Start Date End Date Jamila Oglesby APRN PCP - General 07/23/14 09/19/17 documented as of this encounter
--- OUTSIDE RECORDS SUMMARY | 2024-01-07 02:47 | XMS_ITS | Encounter Summary ---
Author Organization [facility] Address [facility] [place] [address] Care Team Providers Care Maintenance Fitter Name Role Phone Mary Barton KALLI Primary Care Provider [phone] Reason for Visit * Reason Comments Pre-op Exam PRE OP 02/17/2021 RIG HT TKA REVISION Encounter Details Date Type Department Care Team (Late st Contact Info) Description 02/06/2021 11:20 AM EDT Office [place] [address] Syed Clarke MD [facility] [place] [address] Preop examination; Arthrofibrosis of knee joint, right; Failed total right knee replacement, sequela; REBECCA on CPAP Social History Tobacco Use Types Packs/Day Years [...] Sign Reading Time Taken Comments Blood Pressure 122/65 02/06/2021 11:08 AM EDT Pulse 72 02/06/2021 11:08 AM EDT Temperature - - Respiratory Rate - - Oxygen Saturation 96% 02/06/2021 11:08 AM EDT Inhaled Oxygen Concentration - - Weight 110.2 kg (243 lb) 02/06/2021 11:08 AM EDT Height 154.9 cm (5' 1) 02/06/2021 11:08 AM EDT Body Mass Index 45.91 02/06/2021 11:08 AM EDT documented in this encounter Progress Notes * Syed Clarke MD - 02/06/2021 11:20 AM EDT Arthroplasty History/Previous Knee Surgery: 1. R TKA 2014- Dr. Collazo 2. R TKA synovectomy 2017- Dr. Collazo Chief Complaint: Chief Complaint Patient presents with ??? Pre-op Exam PRE OP 02/17/2021 RIGHT TKA REVISION This patient was referred from Mary Barton, KALLI [address] [place] [address] I.D.: Pari Lackey is a 70 y.o. year old female being seen today to discuss her bilateral knees. Her history and physical exam were reviewed in detail. In brief, the patient has a history of a right total knee replacement [place] in [address] Collazo that was complicated by arthrofibrosis and decreased range of motion requiring a synovectomy which was performed in 2016. The patient believes that after her first surgery her range of motion was 0 to 100 degrees and after her synovectomy range of motion was approximately 0 to 70 degrees. She has developed increased stiffness in her right knee and has been seen by Dr. Tavares with an estimation that her current range of motion is approximately only 30 to 40 degrees. In addition, the patient has left knee pain and has radiographs performed that demonstrate severe arthritis on the left side. She does not have significant pain on the right side but does have difficulty with activities such as getting in and out of a car. She does have significant pain in her left knee and it also occasionally gives out on her. She recently had severe pain in her left knee that required her to be admitted to the hospital approximately 2 weeks ago. She has worked with physical therapy and currently is taking meloxicam as needed. She has had no issues with wound healing or concern for infection. She recently had a steroid injection in her left knee ap proximately 5-6 weeks ago. Her pain is mostly in the anterior aspect of her left knee. Stairs, hardfloors and uneven ground aggravate her left knee pain. She has been using ice to help with her ambulation. She presents today for discussion of treatment strategies for her bilateral knee troubles. Ms. Lackey denies fevers/chills/headache/chest pain/shortness of breath/abdominal pain/nausea or vomiting/weight changes She does not endorse a history of DVT/PE or clotting disorder. ASSOCIATED DIAGNOSES: She does not reports problems with either hip and does not have a history of spine or back issues. ALLERGIES Allergies Allergen Reactions ??? Unknown [Unclassified Drug] Rash NICKEL ??? Aripiprazole ??? Bupropion Other (See Comments) ??? Sulfamethoxazole ??? Sulfamethoxazole-Trimethoprim ??? Trimethoprim ??? Nickel Allergies to metals: None. SOCIAL HISTORY: reports that she quit smoking about 26 years ago. Her smoking use included cigarettes. She has a 20.00 pack-year smoking history. She has never used smokeless tobacco. She reports that she does not drink alcohol and does not use drugs. SIGNIFICANT MEDICAL COMORBIDITIES: There is no problem list on file for this patient. VITALS: BP Readings from Last 1 Encounters: 12/19/20 109/70 Pulse Readings from Last 1 Encounters: 12/19/20 79 Height: 154.9 cm (5' 1) Body mass index is 45.91 kg/m??. PHYSICAL EXAM: Constitution: Patient sits in the clinic today in no apparent distress. The patient is alert and oriented x 3. Appearance is age-appropriate, affect is similarly appropriate. Head, ears, eyes, nose, throat: grossly normal. Anicteric, no apparant lymphadenopathy. Chest: Normal chest expansion with re gular inspiratory effort. No audible wheezing with regularly inspiratory effort. Cardiac: regular rate and rhythm by peripheral palpation. Abdominal: Soft non- tender abdomen with no masses noted. C, T, L & S Spines demonstrate supple pain-free ROM with no focal abnormality. Gross extremity examination demonstrates full active and passive ROM without stigmata of rheumatoid disease. I have made the following determinations: Knee Exam: LEFT Prior surgery on this joint: No Gait Abnormality: Antalgic Knee ROM: Extension:0 Flexion: 95 Alignment: 0-4 degrees Neutral Stability: A/P Translation <5mm Varus (lateral stability) <5mm Valgus (medial stability) <5mm Extension La degrees or less Patella Tracking: Normal Skin Integrity: Normal Pulses Palpable: Left PT:Yes Left DP:Yes Motor/Sensory: Distal Motor:Normal Distal Sensory: Normal Quadriceps Strength:5 I have made the following determinations: Knee Exam: RIGHT Prior surgery on this joint: Yes Gait Abnormality: Antalgic Knee ROM: Extension:5 Flexion: 35 Alignment: 0-4 degrees Neutral Stability: A/P Translation <5mm. Varus (lateral stability) <5mm Valgus (medial stability) <5mm Extension La degrees or less Patella Tracking: Normal Skin Integrity: Normal Pulses Palpable: Right PT: Yes Right DP:Yes Motor/Sensory: Distal Motor: Normal Distal Sensory: Normal Quadriceps Strength: limited by range of motion RADIOGRAPHIC ANALYSIS - RIGHT KNEE: X-rays of the right knee were personally reviewed, these demonstrate a PS cemented total knee replacement without obvious component malposition or loosening. There is no obvious fracture noted. RADIOGRAPHIC ANALYSIS - LEFT KNEE: Together, we reviewed her radiographs obtained previously which demonstrate degenerative joint disease. Kellgren-Ronny Grade: 4= large osteophytes, marked narrowing, obvious deformity [0= normal; 1=minimal ; 2= some osteophytes , some narrowing ; 3= moderate osteophytes, significantnarrowing, mild deformity; 4= large osteophytes, marked narrowing, obvious deformity] Questionnaire Responses: General Health, Prior Treatments, PreExisting Condition, Health Habits, About You 02/06/2021 PROMIS-10 General Health Good PROMIS-10 Quality of Life Good PROMIS-10 Physical Health Fair PROMIS-10 Mental Health Good PROMIS-10 Social Activity Good PROMIS-10 Everyday Activities Moderately PROMIS-10 Pain 4 PROMIS-10 Fatigue Moderate PROMIS-10 Social Roles Fair PROMIS-10 Anxious or Depressed Sometimes PROMIS PHYSICAL SCORE (range 16-68) - PROMIS MENTAL SCORE (range 21-68) - TKA Grade 2 No flowsheet data found. No flowsheet data found. ASSESSMENT AND PLAN: Ms. Lackey is a 70 y.o. year old female with severe osteoarthritis of her left knee with a prior right total knee performed in 2014 complicated by asymptomatic arthrofibrosis requiring synovectomy in 2017. The patient has 2 separate issues ongoing at this point. 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 Although this right knee is not particularly painful, is limiting due to the fact that she lacks substantial flexion. Her left knee has severe osteoarthritis, it is painful and occasionally gives way on her at times. We reviewed the multiple treatment options available to her for her left knee. Both operative and nonoperative options were discussed as well as the pure elective nature of each. I reviewed the concept of the arthritis ladder with its step-manuel approach, rising in invasiveness based on either previous response or symptom severity/impact on lifestyle. Considering the apparent impact on her lifestyle and having explored non- operative treatment options, I indicated that in my opinion, the treatment most likely to restore a more normal, pain-free level of function would be left knee joint replacement of her. Despite her left knee being more painful, the patient is most in favor of pursuing treatment on herright knee prior to addressing her left knee. Treatment for her right knee arthrofibrosis would be a revision total knee arthroplasty with likely conversion to a hinge component. Discussed with her the nature of this revision surgery and her goal for her flexion to hopefully exceed 90 degrees, thiswould be considered a good outcome. She will require aggressive physical therapy after surgery and should expect her recovery. To last approximately 12-18 months. Weight loss was also encouraged as her BMI is currently 46 to help decrease her postoperative rate patient. We also discussed that she would need to wait approximately 3 months after her last corticosteroid injection to her left knee prior to considering a knee replacement on the side. She will seek out the needed medical clearance and undergo the needed testing to ensure medical suitability for the proposed surgical intervention. I will plan to meet again in the weeks prior to an anticipated potential surgical date, to review her medical consult and testing, answer any and all questions, and formulate our definitive decisions regarding proceeding with surgery (or not) at that time only. Potential barriers to total joint arthroplasty: -BMI > 40: Yes (Body mass index is 45.91 kg/m??.) -Active Tobacco use: No -Diabetes with hemoglobin A1C > 7.5: No * Syed Clarke MD - 02/06/2021 11:20 AM EDT Images from the original note were not included. CC: Pari Lackey is a 70 y.o. female with the following problems and medications that is being seen in the clinic for consultation at the request of her surgeon Dr. Juan Marie for preoperative risk stratification and management recommendations in anticipation of revision right total knee art hroplasty for symptomatic TKA. HPI - Pain - Location - right knee Quality - aching, sharp Onset - gradual, Duration - several months, Intensity - moderate to severe, Aggravating factors - standing, walking, stepping, bending, Alleviating factors - NSAID, APAP, gabapentin, rest, topical, Associated - does note severe pain in other knee joint pain. She has a machine for her REBECCA and has been using. Patient Active Problem List Diagnosis Code ??? Arthrofibrosis of knee joint, right M24.661 ??? REBECCA on CPAP G47.33, Z99.89 ??? Hypothyroidism E03.9 ??? Adult BMI 45.0-49.9 kg/sq m Z68.42 ??? Failed total right knee replacement T84.012A Current Outpatient Medications Medication Sig Dispense Refill ??? gabapentin (Neurontin) 100 mg Capsule TAKE 2 CAPSULES BY MOUTH THREE TIMES DAILY ??? diclofenac (Voltaren) 1 % Gel APPLY 2 GRAMS TOPICALLY TO THE AFFECTED AREA FOUR TIMES DAILY ??? acetaminophen (TYLENOL) 650 mg Tablet Sustained Release Take 650 mg by mouth every 8 hours as needed for Pain. Do not exceed 6 tabs in 24 hours ??? busPIRone (Buspar) 10 mg Tablet Take 20 mg by mouth 2 times daily. ??? calcium carbonate (Tums) 200 mg calcium (500 mg) Tablet, Chewable As needed ??? docusate sodium (Colace) 100 mg Capsule Three times a day, as needed ??? escitalopram (Lexapro) 20 mg Tablet Daily. ??? Propylene Glycol-Glycerin 1-0.3 % Drops Artificial Tears (glycerin-peg) 1 %- 0.3 % eye drops ??? Levothyroxine (Tirosint) 50 mcg Capsule Take 50 mcg by mouth Daily. ??? meloxicam (MOBIC) 15 mg Tablet Daily ??? rizatriptan (MAXALT) 5 mg Tablet Maxalt 5 mg tablet Take 1 tablet by oral route. ??? losartan (COZAAR) 50 mg Tablet Take 50 mg by mouth daily. ??? simvastatin (ZOCOR) 20 mg Tablet Take 20 mg by mouth nightly. ??? aspirin 81 mg Tablet, Delayed Release (E.C.) Take 81 mg by mouth daily. ??? cholecalciferol, Vitamin D3, 400 unit Tablet Take 400 Units by mouth daily. ??? fluticasone propionate (Flonase) 50 mcg/actuation [place], Suspension SHAKE LIQUID AND USE 2 SPRAYS IN EACH NOSTRIL DAILY ??? lidocaine (Lidoderm) 5% Adhesive Patch, Medicated Q24H ??? naproxen sodium (ANAPROX) 220 mg Tablet Take 220 mg by mouth 2 times daily (with meals). No current facility-administered medications for this visit. Social History Occupational History ??? Not on file Tobacco Use ??? Smoking status: Former Smoker Packs/day: 1.00 Years: 20.00 Pack years: 20.00 Types: Cigarettes Quit date: 08/05/1994 Years since quittin.5 ??? Smokeless tobacco: Never Used Substance and Sexual Activity ??? Alcohol use: No Comment: rare ??? Drug use: No ??? Sexual activity: Not on file Family History Problem Relation Age of Onset ??? Glaucoma Neg Hx ??? Retinal Detachment Neg Hx ??? Strabismus Neg Hx Review of Systems Constitutional: Negative for chills, diaphoresis and fever. Respiratory: Negative for cough, shortness of breath and wheezing. Cardiovascular: Negative for chest pain, palpitations and leg swelling. Gastrointestinal: Negative for abdominal pain, anal bleeding and blood in stool. Has constipation with diarrhea alternating and manages with bowel regime. She had remote colon resection for adenocarcinoma. Subsequently she had dilatation of anastomotic stricture and bowel regime was emphasized withuse of Miralax to address any constipation. CEA was 2.3 in August at [facility] and 2.5 in July 2019 (bothof these are considered with in normal range). Endocrine: Negative for polydipsia and polyphagia. Genitourinary: Negative for dysuria, flank pain and hematuria. Skin: Negative for pallor and rash. Allergic/Immunologic: Negative for environmental allergies and immunocompromised state. Neurological: Negative for syncope and speech difficulty. Left knee pain is signifiicantly better on gabapentin. Hematological: Negative for adenopathy. Does not bruise/bleed easily. Denies melena, nose or gum bleed. Psychiatric/Behavioral: Negative for confusion, decreased concentration and dysphoric mood. Allergies: Allergies Allergen Reactions ??? Unknown [Unclassified Drug] Rash NICKEL ??? Aripiprazole ??? Bupropion Other (See Comments) ??? Lisinopril cough ??? Sulfamethoxazole ??? Sulfamethoxazole-Trimethoprim ??? Trimethoprim ??? Zoloft [Sertraline] ??? Nickel Physical Exam: Last Set of Vitals and Range over past 24 hours: Last value Range last 24 hrs Heart Rate Heart Rate: 72 Heart Rate: [72] Blood Pressure BP: 122/65 BP: (122)/(65) SpO2 SpO2: 96 % SpO2: [96 %] Estimated body mass index is 45.91 kg/m?? as calculated from the following: Height as of this encounter: 154.9 cm (5' 1). Weight as of this encounter: 110.2 kg (243 lb). Physical Exam Constitutional: She is oriented to person, place, and time. She appears well- developed. No distress. HENT: Head: Normocephalic and atraumatic. Eyes: Right eye exhibits no discharge. Left eye exhibits no discharge. No scleral icterus. Neck: Neck supple. No JVD present. Cardiovascular: Normal rate, regular rhythm and normal heart sounds. Exam reveals no gallop and no friction rub. No murmur heard. Pulmonary/Chest: Effort normal and breath sounds normal. No stridor. No respiratory distress. She has no wheezes. She has no rales. She exhibits no spinal tenderness. Abdominal: Soft. Bowel sounds are normal. She exhibits no percussed HSM. There is no CVA tenderness. There is no rebound and no guarding. Musculoskeletal: She exhibits no edema. Using cane to ambulate. Has ROM severely impaired on right knee with flexion to 50 and extension near full. Neurological: She is alert and oriented to person, place, and time. She displays no tremors at restor on intent. She has good recall. Skin: Skin is warm and dry. She is not diaphoretic. No pallor. Psychiatric: She has a normal mood and affect. Her behavior is normal. Judgment and thought contentnormal. Lab Results Component Value Date WBC 5.2 02/06/2021 RBC 4.45 02/06/2021 HGB 13.0 02/06/2021 HCT 41.2 02/06/2021 MCV 92.6 02/06/2021 MCH 29.2 02/06/2021 MCHC 31.6 (L) 02/06/2021 PLATELET 143 (L) 02/06/2021 RDWCV 12.8 02/06/2021 Lab Results Component Value Date NA 146 (H) 02/06/2021 K 5.0 02/06/2021 CL 107 02/06/2021 CO2 29 02/06/2021 BUN 16 02/06/2021 CREATININE 0.85 02/06/2021 GLUCOSE 96 02/06/2021 CALCIUM 9.5 02/06/2021 ESTGFR 70 02/06/2021 Lab Results Component Value Date PT 11.4 02/06/2021 INR 1.0 02/06/2021 PTT 32 02/06/2021 EKG (image reviewed): Normal sinus rhythm T wave abnormality, consider anterior ischemia Xray - TKA Right A/P 1. Preop examination 2. Arthrofibrosis of knee joint, right 3. Failed total right knee replacement, sequela 4. REBECCA on CPAP She elects to proceed with TKA revision for improved activity tolerance, the ROM is severely impaired in this knee and there was only transient improvement after prior synovectomy. I reviewed the association of REBECCA with perioperative complications and suboptimal outcomes of arthroplasty and reiterated continued CPAP compliance. This additional risk is NOT incorporated into the estimate below based on NSQIP methodology. Major Risk Factor per the Revised Cardiac Risk Index (Bold if present) - There is no history of CAD, CHF, CVA or TIA, DM2 on insulin, or a Creatinine >2. She has T wave inversion on EKG, these were not considered CAD equivalent per RCRI. She has no new cardiopulmonary symptoms and has functionalcapacity more than 4 METs, further preoperative cardiac testing is NOT indicated. Risk diagnosis for MACE (major adverse cardiovascular event = Myocardial infarction, pulmonary edema, ventricular fibrillation, primary cardiac arrest, or complete heart block.) : Low <1% The patient describes a functional status of 4METs and more (attends to self and home) and based on the ACC/AHA 2014 guideline no further cardiovascular testing is indicated. ARISCAT/CANET Score - estimates the risk of postoperative pulmonary complications as being low ~3.5%. Per the ACS NSQIP calculator I estimated the following. Patient instructions: Stop aspirin on . Bring CPAP to surgery. Take buspirone, levothyroxine, escitalopram, gabapentin and simvastatin the morning of surgery. RECOMMENDATION for Postoperative Care: Aggressive bowel regime to avoid obstruction from colonic anastomotic stricture. Continue CPAP Continue gabapentin, buspirone, levothyroxine, escitalopram, simvastatin, Miralax, Senna with colace, Maxalt, D3, losartan (hold if SBP<120) Is this patient a candidate for expedited recovery after total joint replacement no She lives alone but will be arranging for help during her recovery. She has BMI>40. documented in this encounter Plan of Treatment Upcoming Encounters Date Type Department Care Team (Late st Contact Info) Description 02/17/2024 1:00 PM EDT Office [place] [address] Julian Kate MD [facility] [place] [address] documented as of this encounter Visit Diagnoses Diagnosis Preop examination Preoperative examination, unspecified Arthrofibrosis of knee joint, right Failed total right knee replacement, sequela REBECCA on CPAP Obstructive sleep apnea (adult) (pediatric) documented in this encounter Care Teams Maintenance Fitter Relationship Specialty Start Date End Date Mary Barton APRN PCP - General Family Medicine 11/15/20 documented as of this encounter
--- OUTSIDE RECORDS SUMMARY | 2024-01-07 02:47 | XMS_ITS | Encounter Summary ---
Author Organization [facility] [place] [address] Care Team Providers Care Search Engine Optimization Manager Name Role Phone JayJamila boland Lita MAHAN Primary Care Provider Encounter Details Date Type Department Care Team (Late st Contact Info) Description 05/14/2015 Ancillary Procedure [place] [phone] Nadege Mcgregor PA [address] [place] [address] Social History Tobacco Use Types Packs/Day Years [...] 1:00 PM EDT Office [place] [phone] Julian Kate MD [facility] DR ENDOCRINOLOGY [place], [place] [phone] documented as of this encounter Procedures Procedure Name Priority Date/Time Associated Diagnosis Comments FILM LIBRARY STORAGE ONLY DX KNEE Routine 05/14/2015 12:00 AM EST documented in this encounter Results * Film Library- Storage Only DX Knee (05/14/2015 12:00 AM EST) Narrative SHAHID - 05/23/2020 1:36 PM EST This exam is auto-finalizing. It's purpose is for storage only. Nadege BECKHAM IMLita FILM LIBRARY ORDERABLES Performing Organization Address City/State/[facility] Co de Phone Number [place], [place] documented in this encounter Visit Diagnoses Not on filedocumented in this encounter Care Teams Search Engine Optimization Manager Relationship Specialty Start Date End Date Jamila Oglesby, KALLI PCP - General 07/23/14 09/19/17 documented as of this encounter
--- OUTSIDE RECORDS SUMMARY | 2024-01-07 02:47 | XMS_ITS | Encounter Summary ---
Author Organization [facility] [place] [address] Care Team Providers Care Insurance Billing Clerk Name Role Phone Jamila Oglesby APRN Primary Care Provider Reason for Visit * Reason Onset Date Comments Reminder Appointment 02/12/2017 Encounter Details Date Type Department Care Team (Late st Contact Info) Description 02/12/2017 Telephone [place] [phone] Jossy Mena MD [facility] [place] [address] Reminder Appointment Social History Tobacco Use Types Packs/Day [...] encounter Miscellaneous Notes * Telephone Encounter - Zarina Aparicio - 02/19/2017 3:59 PM EDT Patient Scheduled * Telephone Encounter - Zarina Aparicio - 02/12/2017 3:10 PM EDT I have called and left a message for patient to call and schedule their recall appointment. 6M OCT OU around 03/09/17 documented in this encounter Plan of Treatment Upcoming Encounters Date Type Department Care Team (Late st Contact Info) Description 02/17/2024 1:00 PM EDT Office Visit [place] [address] Julian Kate MD [facility] [place] [address] documented as of this encounter Visit Diagnoses Not on filedocumented in this encounter Care Teams Insurance Billing Clerk Relationship Specialty Start Date End Date Jamila Oglesby APRN PCP - General 07/23/14 09/19/17 documented as of this encounter
--- OUTSIDE RECORDS SUMMARY | 2024-01-07 02:47 | XMS_ITS | Encounter Summary ---
Author Organization [facility] [place] [address] Care Team Providers Care Clay Processing Labourer Name Role Phone Reny Jamila London APRN Primary Care Provider [phone] Encounter Details Date Type Department Care Team (Late st Contact Info) Description 08/05/2014 11:00 AM EDT - 08/05/2014 12:00 PM EDT Surgery [place] [address] Iggy Lopez MD [facility] [place] [address] COLONOSCOPY, DIAGNOSTIC (WRVU 3.26) Social History Tobacco Use Types Packs/Day Years [...] Sign Reading Time Taken Comments Blood Pressure 130/61 08/05/2014 11:37 AM EDT Pulse 93 08/05/2014 11:37 AM EDT Temperature 36.6 ??C (97.9 ??F) 08/05/2014 10:16 AM E DT Respiratory Rate 14 08/05/2014 11:37 AM EDT Oxygen Saturation 94% 08/05/2014 11:37 AM EDT Inhaled Oxygen Concentration - - Weight - - Height - - Body Mass Index - - documented in this encounter Discharge Instructions * Attachments The following attachments cannot be sent through Care Everywhere. * COLONOSCOPY : POST-OP (PUERTO RICAN) documented in this encounter Medications at Time [...] 0 02/06/2021 documented as of this encounter Progress Notes * Carlos De León RN - 08/03/2014 2:51 PM EDT ENDOSCOPY PATIENT HISTORY Name: CHRISTOPHE LACKEY : 1950 Age: 63 y.o. Address: [address] [address] (home) Mobile: No relevant phone numbers on file. Referring Provider: Jamila Oglesby Referral Procedure: Allergies: NKDA Problem list: There is no problem list on file for this patient. Past Medical History: Per scanned document: HTN Hyperlipidemia Depression Migraines Obesity Colon ca Past Surgical History: No past surgical history on file. Medications: Prior to Admission medications Not on File documented in this encounter H&P Notes * Iggy Lopez MD - 08/05/2014 10:33 AM EDT Gastroenterology and Hepatology Pre-Procedure History and Physical Exam Procedure: Colonoscopy: Indication: change in bowels There is no problem list on file for this patient. EXAM: HEENT: Airway examined, oropharynx clear Mallampati Score: II (soft palate, uvula, fauces visible) LUNGS: Clear to auscultation HEART: Regular rate and rhythm, normal S1, S2 ABDOMEN: Normal bowel sounds, soft, non tender, non distended, A/P Proceed with the planned endoscopic procedure. ASA 2 - Patient with mild systemic disease with no functional limitations Sedation Plan: moderate (conscious sedation) Risks and benefits of the procedure explained to the patient. Consent signed. documented in this encounter Plan of Treatment Upcoming Encounters Date Type Department Care Team (Late st Contact Info) Description 02/17/2024 1:00 PM EDT Office [place] [phone] Julian Kate MD [facility] [place] [address] documented as of this encounter Procedures Procedure Name Priority Date/Time Associated Diagnosis Comments SURGICAL PATHOLOGY REPORT Routine 08/05/2014 11:36 AM EDT SPECIMEN TO PATHOLOGY Routine 08/05/2014 11:36 AM EDT COLONOSCOPY FLEXIBLE, WITH BX (WRVU 3.56) 08/05/2014 10:56 AM EDT personal hx colo change in bowel habits COLONOSCOPY, DIAGNOSTIC (WRVU 3.26) 08/05/2014 10:56 AM EDT personal hx colo change in bowel habits COLONOSCOPY Routine 08/05/2014 10:45 AM EDT documented in this encounter Results * Surgical Pathology Report (08/05/2014 11:36 AM EDT) Final Diagnosis ? [facility] ? Provider: ?? IGGY LOPEZ ?Pt. Name: ?? CHRISTOPHE LACKEY ? Acc #: ?[id number] ?Pt. ? Col Date: ?? 08/05/2014 ? /Sex: ?1950,(63 years),Female ? Rec Date: ?? 08/05/2014 ? LOC: ?4T ? SURGICAL PATHOLOGY ? ---Pathologic Diagnosis--- ? Transverse and ascending colon, polypectomy: ?Fragments of tubular adenoma. ? CR-0, CR-PX ? 08/06/14 ? BJM ? 08/06/14 Verified by: ? Tim SAUCEDA, Moiz ? Pathologist ? (Electronic Signature) ? The attending pathologist whose signature appears on this report has ? reviewed all diagnostic slides and has edited the gross and/or ? microscopic portion of the report in rendering the final pathologic ? diagnosis. ? ---Gross Description--- ? A - Labeled/Fixativ e: 2 mm polyps transverse and ascending colon, formalin. ? Quantity/Size: Three, ranging from 0.3-0.8 cm. ? Tissue Description: Soft, holt tissues. ? Sections/Proces sing: (T1) ??aml ? ---Clinical Information--- ? Specimen Submitted: ? A - 2 mm polyps trans and ascending colon ? Clinical History: ? Patient with polyps ? Clinical Diagnosis: ? Same 08/06/2014 5:[address] [facility] GI Biopsy 08/05/2014 11:3 6 AM EDT 08/05/2014 11:36 AM EDT Iggy Lopez MD PATHOLOGY/CYTOLOGY O LYDIA Performing Organization Address [facility]/State/[facility] Co de Phone Number [facility] [place] [address] * Specimen to Pathology (surgical or derm) (08/05/2014 11:36 AM EDT) AP Specimen 08/05/2014 11:3 6 AM EDT 08/05/2014 11:36 AM EDT Narrative [facility] - 08/05/2014 11:36 AM EDT Specimen requisition ordered. ??Separate Pathology report to follow Iggy Lopez MD PATHOLOGY/CYTOLOGY O RDERAZAYRA [facility] * COLONOSCOPY (08/05/2014 10:45 AM EDT) COLONOSCOPY [facility] Patient Name: Christophe Lackey ? Procedure Date: 08/05/2014 10:45 AM ? N: [id number] ? Date of : 1950 ? Age: 63 ? Order #: [id number] ? Procedure: ? Colonoscopy Indications: ? H/o colon cancer , now with ? change in bowels Providers: ? Iggy Lopez MD, Tulio Weir ? , JAMAAL, Kylee Conner, ? Cross Roller Referring MD: ?Jamila Oglesby MD Medicines: ? [...] 08/05/2014 10:4 5 AM EDT Jamila Oglesby APRN GENERAL SURGICAL ORD ERABLES [employer]OVATION documented in this encounter Visit Diagnoses Not on filedocumented in this encounter Administered Medications Inactive Administered Medications - up to 3 most recent administrations Medication Order MAR Action Action Date Dose Rate Site fentaNYL 50 mcg/mL multi-dose injection ONCE PRN, Starting on Osiris 08/05/14 at 1106, Until Osiris 08/05/14 at 1241, Intra-Operative (Intra-Procedure), Routine Given 08/05/2014 11:06 AM EDT 50 mcg Given 08/05/2014 11:02 AM EDT 50 mcg R ight Arm Given 08/05/2014 10:59 AM EDT 50 mcg R ight Arm midazolam (PF) (VERSED) 1 mg/mL multi-dose injection ONCE PRN, Starting on Osiris 08/05/14 at 1056, Until Osiris 08/05/14 at 1241, Intra-Operative (Intra-Procedure), Routine Given 08/05/2014 11:02 AM EDT 1 mg Righ t Arm Given 08/05/2014 10:59 AM EDT 1 mg R ight Arm Given 08/05/2014 10:56 AM EDT 2 mg R ight Arm documented in this encounter Active and Recently Administered Medications Times are shown in EDT. PRN Medication Order 08/03/2014 08/04/2014 08/05/2014 fentaNYL 50 mcg/mL multi-dose injection (CANCELED) ONCE PRN, Starting on Osiris 08/05/14 at 1106, Until Osiris 08/05/14 at 1241, Intra-Operative (Intra-Procedure), Routine 1056 (Given - Provid er: Tulio Paul RN - Comment: start moderate sedation)1059 (Given - Provider: Tulio Paul RN - Comment: sleepy but awake)1102 (Given - Provider: Tulio Paul RN - Comment: sleeping but very easily aroused to alert)1106 (Given - Provider: Tulio Paul RN - Comment: grimmacing as attempting to reach TI) midazolam (PF) (VERSED) 1 mg/mL multi-dose injection (CANCELED) ONCE PRN, Starting on Osiris 08/05/14 at 1056, Until Osiris 08/05/14 at 1241, Intra-Operative (Intra-Procedure), Routine 1056 (Given - Provid er: Tulio Paul RN - Comment: see fentanyl same time)1059 (Given - Provider: Tulio Paul RN - Comment: see fentanyl same time)1102 (Given - Provider: Tulio R Paul, RN - Comment: see fentanyl same time) documented in this encounter Care Teams Clay Processing Labourer Relationship Specialty Start Date End Date Jamila Oglesby APRN PCP - General 07/23/14 09/19/17 documented as of this encounter
--- OUTSIDE RECORDS SUMMARY | 2024-01-07 02:47 | XMS_ITS | Encounter Summary ---
Author Organization [facility] Address [facility] [place] [address] Care Team Providers Care Trimmer Sorter Name Role Phone Nadege Mcgregor Primary Care Provider + Reason for Referral * Consultation (Routine) - Closed Specialty Diagnoses / Procedures Referred By Temitope michaels Referred To Contact Gastroenterology Diagnoses Irritable bowel syndrome, unspecified type Rickey Thomas MD [facility] [place] [address] [facility] [address] [place] [phone] Referral ID Status Reason Start Date Expiration Date V isits Requested Visits Authorized [id number] Closed Consult, Test & Treat 09/22/2020 09/22/2021 1 1 Reason for Visit * Reason Comments Establish Care * Consultation (Routine) - Closed Specialty Diagnoses / Procedures Referred By Contcaleb t Referred To Contact General Surgery Diagnoses SIGMOID ANASTOMOTIC STRICTURE Nazario Monet MD [address] [place] [address] [address] [place] [address] [facility] Gen Surgery [address] [place] [phone] Referral ID Status Reason Start Date Expiration Date Visits Re quested Visits Authorized [id number] Closed 08/31/2020 08/31/2021 1 1 Encounter Details Date Type Department Care Team (Late st Contact Info) Description 09/22/2020 1:00 PM EDT Office Visit [place] [address] Rickey Thomas MD [facility] [place] [address] Irritable bowel syndrome, unspecified type Social History Tobacco Use Types Packs/Day Years [...] Sign Reading Time Taken Comments Blood Pressure 139/79 09/22/2020 12:54 PM EDT Pulse 95 09/22/2020 12:54 PM EDT Temperature 36.3 ??C (97.4 ??F) 09/22/2020 1 2:54 PM EDT Respiratory Rate 16 09/22/2020 12:5 4 PM EDT Oxygen Saturation 97% 09/22/2020 12: 54 PM EDT Inhaled Oxygen Concentration - - Weight 109.8 kg (242 lb 1.6 oz) 021 12:54 PM EDT Height 155 cm (5' 1.02) 09/22/2020 12: 54 PM EDT Body Mass Index 45.71 09/22/2020 12:54 PM EDT documented in this encounter Progress Notes * Rickey Thomas MD - 09/22/2020 1:00 PM EDT I have seen the patient in person and reviewed the resident's above history and I agree with the details as written. The assessment and plan were formulated in discussion with me and I agree with them as documented. Pertinent History: 69 year old woman with significant comorbidity and history of stage I colon cancer in 2005 with primary anastomosis. She had a complication of a pelvic abscess per history. She completed surveillance for this. She began having changes to her bowel habits one year prior. She underwent a colonoscopy that demonstrated an anastomotic stricture that was dilated. Her colon was cleared. 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 Discussed that surgery was high risk and would recommend serial balloon dilation by Dr. Monet. She is ok to eat fiber as this never gave her any issues. Patient wishes counseling on diet and functional issues - willrefer to functional GI for evaluation and treatment. F/u prn. 30 minutes of this 30-minute visit was spent [id number] in counseling and coordination of care for evaluation of anastomotic stricture Rickey Thomas MD [facility] 09/22/2020 1:51 PM wet milling wheel operator and Chief Division of Colon and Rectal Surgery [facility] Pager #[phone] COREFO Responses 09/22/2020 Incontinence Scale 63.88 Social Impact Scale 50 Frequency Scale 25 Stool Releated Aspects 33.33 Medication Scale 50 Total COREFO Score 50.96 The COREFO questionnaire is a validated questionnaire with 27 questions to assess colorectal functional outcome. Patients are asked to consider the two week period prior before filling out the questionnaire. Category scores range from zero to 100. A total score is calculated from the categories above, also ranging from zero to 100. A higher score represents an increased level of functional disturbance. * Tianna Poole MD - 09/22/2020 1:00 PM EDT Colorectal Surgery Outpatient Consultation ~ Division of Colon and Rectal Surgery ~ [facility] HPI: Pari Lackey is a pleasant 69 y.o. female who we were asked to see by Dr. Monet regarding colo-colonic anastomotic stricture Katie Lackey is a 69-year-old female who presents for symptoms related to a colocolonic anastomotic stricture. Patient is status post a left-sided colon resection for colon cancer back in 2005 at [facility]. Her postoperative course was reportedly complicated by a pelvic infection which required hospitalization but she recovered. She was doing well until about 1 year ago where she had developed changes to her bowel habits including thin wafer-like stools intermittent frequent diarrhea and loose stools as well as associated constipation. She had a colonoscopy in 2014 which was unremarkable. She saw Dr. Borja in January where he performed a colonoscopy that found a anastomotic stricture. She had repeat colonoscopy in August of this year which found consistent colonic stricture about20 cm from the anal verge which allowed only passage of a gastroscope. He performed balloon dilation of the stricture. The whole colon was able to be scoped. Patient states he has not had no significant relief after having balloon dilation and continues to have thin stools. She has occasional distention no nausea vomiting no weight loss. She has no blood in her stool. She is quite frustrated withthe state of her current bowel habits. Patient patient's past surgical history of open colon resection as well as hysterectomy. She states she is on other abdominal surgery that she cannot recall thespecifics of. 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 Chief Complaint Patient presents with ??? Establish Care . The patient's PCP is CHAPINCITO Krishnan. Past medical history: There is no problem list on file for this patient. Past surgical history: Past Surgical History: Procedure Laterality Date ??? PRO COLONOSCOPY, BIOPSY N/A 08/05/2014 COLONOSCOPY FLEXIBLE, WITH BX performed by Iggy Lopez MD at [facility] ??? PRO COLONOSCOPY, DIAGNOSTIC N/A 08/05/2014 COLONOSCOPY, DIAGNOSTIC performed by Iggy Lopez MD at [facility] Hysterectomy Left-sided colon resection for colon cancer, 2006 at [facility] Allergies: Unknown [unclassified drug] Medications: reviewed in the electronic medical record. Current Outpatient Medications on File Prior to Visit Medication Sig Dispense Refill ??? naproxen sodium (ANAPROX) 220 mg Tablet Take 220 mg by mouth 2 times daily (with meals). ??? losartan (COZAAR) 50 mg Tablet Take 50 mg by mouth daily. ??? simvastatin (ZOCOR) 20 mg Tablet Take 20 mg by mouth nightly. ??? sertraline (ZOLOFT) 25 mg Tablet Take 25 mg by mouth daily. ??? aspirin 81 mg Tablet, Delayed Release (E.C.) Take 81 mg by mouth daily. ??? UNKNOWN TO PATIENT Anti depress for SAD ??? cholecalciferol, Vitamin D3, 400 unit Tablet Take 400 Units by mouth daily. No current facility-administered medications on file prior to visit. Social history: reports that she quit smoking about 26 years ago. Her smoking use included cigarettes. She has a 20.00 pack-year smoking history. She does not have any smokeless tobacco history on file. She reports that she does not drink alcohol and does not use drugs. Family medical history: Family History Problem Relation Age of Onset ??? Glaucoma Neg Hx ??? Retinal Detachment Neg Hx ??? Strabismus Neg Hx Patient denies a family history of: Patient denies any family history of colon cancer or inflammatory bowel disease Physical exam: Vitals: Blood pressure 139/79, pulse 95, temperature 36.3 ??C (97.4 ??F), resp. rate 16, height 155cm (5' 1.02), weight 109.8 kg (242 lb 1.6 oz), SpO2 97 %. BMI: Body mass index is 45.71 kg/m??. General Appearance: well developed and well nourished, obese Neuro: awake, alert and oriented to person, place and time no acute distress Psych: appropriate mood and affect Eyes: extra ocular muscles intact, pupils equally reactive to light and accomodation ENT: neck supple, no lyphadenopathy noted CV: regular rate and rhythm Resp: non-labored without adventitous sounds on auscultation Lymph: no edema noted Abdomen: soft, obese non-tender, and not distended, no masses or organomegaly, there is a well-healed lower midline laparotomy scar. There is a well healed Pfannenstiel incision. There is a infraumbilical trocar scar. Ext: no cyanosis Labs: reviewed. Endoscopy: reviewed. Path: reviewed. Imaging: reviewed. COREFO Responses 09/22/2020 Incontinence Scale 63.88 Social Impact Scale 50 Frequency Scale 25 Stool Releated Aspects 33.33 Medication Scale 50 Total COREFO Score 50.96 The COREFO questionnaire is a validated questionnaire with 27 questions to assess colorectal functional outcome. Patients are asked to consider the two week period prior before filling out the questionnaire. Category scores range from zero to 100. A total score is calculated from the categories above, also ranging from zero to 100. A higher score represents an increased level of functional disturbance. Impression/Plan: Pari Lackey is a 69 y.o. female with history of left-sided colon cancer statuspost resection in 2005 who presents with findings of a anastomotic stricture. Patient is having significant symptoms over the last year including thinning of her stool frequent loose stools. Her COREFO score is quite high today at 50. We discussed the options for management of the stricture and ourrecommendations. We recommended that she continue with serial dilation of the stricture with Dr. Borja as well as see the functional instructional materials director for dietary and medical modifications. We discussed that given her prior surgical history surgical resection of this anastomotic stricture was without significant risk. We put in referral to the functional instructional materials director today and she will follow up with us regarding her progress with Dr. Borja. Tianna Poole MD documented in this encounter Plan of Treatment Upcoming Encounters Date Type Department Care Team (Late st Contact Info) Description 02/17/2024 1:00 PM EDT Office [place] [address] Julian Kate MD [facility] [place] [address] Scheduled Referrals Name Type Priority Associated Diagnoses Order Schedule Referral to Gastroenterology Outpatient Referral Routine Irritable bowel syndrome, unspecified type Ordered: 09/22/2020 documented as of this encounter Visit Diagnoses Diagnosis Irritable bowel syndrome, unspecified type documented in this encounter Care Teams Trimmer Sorter Relationship Specialty Start Date End Date Nadege Mcgregor PA PCP - General Orthopaedic Surgery 09/20/17 11/14/20 documented as of this encounter
--- OUTSIDE RECORDS SUMMARY | 2024-01-07 02:47 | XMS_ITS | Encounter Summary ---
Author Organization [facility] [place] [address] Care Team Providers Care Order Entry Representative Name Role Phone Magan Haq MD Primary Care Provider [phone] Encounter Details Date Type Department Care Team (Late st Contact Info) Description 04/07/2012 Ancillary Procedure [place] [address] Nadege Mcgregor PA [address] [place] [address] Social History Tobacco Use Types Packs/Day Years [...] EDT Office [place] [phone] Julian Kate MD [facility] [place] [address] documented as of this encounter Procedures Procedure Name Priority Date/Time Associated Diagnosis Comments FILM LIBRARY STORAGE ONLY DX KNEE Routine 04/07/2012 12:00 AM EST documented in this encounter Results * Film Library- Storage Only DX Knee (04/07/2012 12:00 AM EST) Narrative [facility] - 05/23/2020 1:37 PM EST This exam is auto-finalizing. It's purpose is for storage only. Nadege BECKHAM IMG FILM LIBRARY ORDERABLES [place], [place] documented in this encounter Visit Diagnoses Not on filedocumented in this encounter Care Teams Order Entry Representative Relationship Specialty Start Date End Date Magan Haq MD [address] [place] [id number] PCP - General 04/18/10 07/22/14 documented as of this encounter
--- OUTSIDE RECORDS SUMMARY | 2024-01-07 02:47 | XMS_ITS | Encounter Summary ---
Author Organization [facility] [place] [address] Care Team Providers Care Frog Farmer Name Role Phone Jamila Oglesby APRN Primary Care Provider [phone] Encounter Details Date Type Department Care Team (Late st Contact Info) Description 08/03/2016 - 08/03/2016 12:[address] [facility] Hospital En[place] [address] Sincere Machado MD [facility] [place] [address] Pain Discharge Disposition: Home Social History Tobacco [...] 1:00 PM EDT Office Visit [place] [address] Julian Kate MD [facility] [place] [address] documented as of this encounter Procedures Procedure Name Priority Date/Time Associated Diagnosis Comments FILM LIBRARY STORAGE ONLY ULTRASOUND STUDY Routine 08/03/2016 12:00 AM EST Pain documented in this encounter Results * Film Library- Storage Only Ultrasound Study (08/03/2016 12:00 AM EST) Narrative [facility] - 08/08/2016 11:58 AM EDT This exam is for storage only and is auto-finalizing. Sincere Machado MD IMG FILM LIBRARY ORDERABLES [place], [place] documented in this encounter Visit Diagnoses Diagnosis Pain Generalized pain documented in this encounter Care Teams Frog Farmer Relationship Specialty Start Date End Date Jamila Oglseby APRN PCP - General 07/23/14 09/19/17 documented as of this encounter
--- OUTSIDE RECORDS SUMMARY | 2024-01-07 02:47 | XMS_ITS | Encounter Summary ---
Author Organization [facility] Address [place] [address] Care Team Providers Care Training And Development Rep Name Role Phone Nadege Mcgregor Primary Care Provider + Reason for Visit * Consultation (Routine) - Closed Specialty Diagnoses / Procedures Referred By Temitope michaels Referred To Contact Gastroenterology Diagnoses DIARRHEA AND INCONTENENCE Nadege Mcgregor PA [address] [place] [address] [facility] [address] [place] [address] Referral ID Status Reason Start Date Expiration Date V isits Requested Visits Authorized [id number] Closed Consult, Test & Treat Connection Center 09/24/2017 09/24/2018 1 1 Encounter Details Date Type Department Care Team (Latest Contact Info) Description 11/29/2017 2:00 PM EDT Office [place] [address] Luz Ho, AGENCY OWNER [address] [place] [address] Gastroesophageal reflux disease, esophagitis presence not specified; Diarrhea, unspecified type; Constipation, unspecified constipation type Social History Tobacco Use Types Packs/Day [...] - Inhaled Oxygen Concentration - - Weight 105 kg (231 lb 6.4 oz) 11/29/2017 2:10 PM EDT Height - - Body Mass Index - - documented in this encounter Patient Instructions * Patient Instructions* Luz Ho APRN - 11/29/2017 2:00 PM EDT 1. Avoid non-steroidal anti-inflammatory medications (NSAIDs) including but not limited to Advil, ibuprofen, Motrin, Aleve, Excedrin, naproxen, Mobic, indomethacin, and aspirin. Acetaminophen (Tylenol) is okay for aches and pains. Consider CBD oil. 2. Omeprazole 20mg once daily 30-60 minutes prior to eating first meal of the day for 8 weeks, thendecrease to every other day for 2 weeks, then stop. 3. Expect some rebound reflux for one to two weeks after stopping omeprazole. You can take TUMs or gaviscon as needed. 4. One small bottle of miralax mixed in one gallon of gatorade. Drink until no longer passing chunks of stool 5. Miralax one full capful at bedtime if no bowel movement that morning 6. Low-FODMAP diet x 2-4 weeks. Gradually reintroduce one food at a time to identify triggers. 7. Follow up 4-6 weeks if needed documented in this encounter Progress Notes * Luz Ho APRN - 11/29/2017 2:00 PM EDT EFFICIENCY MANAGER: Luz Ho APRN PCP: CHAPINCITO Krishnan REQUESTING PROVIDER: CHAPINCITO Krishnan REASON FOR CONSULTATION This is a 67 y.o. female with a history significant for colorectal cancer in 2004 s/p hemicolectomy. I am seeing her as a new patient today in consult for diarrhea. GI PROBLEM LIST 1. DIARRHEA --COLONOSCOPY 08/05/14; - Diverticulosis in the sigmoid colon ?and in the descending colon. ?- Internal hemorrhoids. ?- No specimens collected. Pathology; TA HPI COMMENTS History of colorectal cancer in 2004. Had a resection in 2004. Bowel habits have changed over the past year. Prior to this change bowel habits were normal. Daily bowel movements. Changed to intermittent diarrhea and constipation. Fecal urgency. Small amounts. Flat stools. They have since again changed. Changed into small pieces of stool. Sticky stool. Stools have since changed again. I don't think I've had anything consistent for more than two weeks at a time. Denies blood and mucus in stool. Denies unintentional weight loss. Denies anemia. Denies nausea and vomiting.Good appetite. Denies early satiety. Denies abdominal pain. Straining and difficulty emptying. Abdominal cramping and fecal urgency. Denies bloating and gas. Has urinary incontinence at times. Stopped drinking as much soda. Started taking miralax. Has stopped taking this. Denies dysphagia, odynophagia, and globus. Reflux symptoms several days per month. Rolaids and TUMsare not completely helpful. Takes naproxen on a daily basis. Stool studies have not been done for this issue. ROS Notable for the gastrointestinal symptoms as described above. CONSTITUTIONAL: Denies anorexia, fever, or unintended weight change EYES: Denies red or painful eyes ENT: Denies oral ulcers, dysphagia, odynophagia, globus. RESPIRATORY: Denies cough, shortness of breath, wheezing CV: Denies palpitations, chest pain. : See HPI. MUSC/SKELETAL: Leg pain. Denies chronic joint pains or history of inflammatory arthritis. INTEGUMENTARY: Denies recent skin rash or lesions. NEURO: Denies neuropathy, loss of sensation, facial drooping or unilateral weakness. PSYCH: Anxiety/depression. ENDO: Denies frequent urination and excessive hunger or thirst. HEM/LYMPH: Denies easy bleeding or bruising. ALL/IMMUNO: Denies seasonal allergies, frequent colds. ALLERGIES Allergies Allergen Reactions ??? Unknown [Unclassified Drug] Rash NICKEL CURRENT MEDICATIONS Medications reviewed and reconciled in e-DH Current Outpatient Prescriptions: ??? sertraline (ZOLOFT) 25 mg Tablet, Take 25 mg by mouth daily., Disp: , Rfl: ??? lisinopril (PRINIVIL;ZESTRIL) 2.5 mg Tablet, Take 2.5 mg by mouth daily., Disp: , Rfl: ??? aspirin 81 mg Tablet, Delayed Release (E.C.), Take 81 mg by mouth daily., Disp: , Rfl: ??? atorvastatin (LIPITOR) 10 mg Tablet, Take 10 mg by mouth daily., Disp: , Rfl: ??? UNKNOWN TO PATIENT, Anti depress for SAD, Disp: , Rfl: ??? cholecalciferol, Vitamin D3, 400 unit Tablet, Take 400 Units by mouth daily., Disp: , Rfl: MEDICAL HISTORY Past Medical History: Diagnosis Date ??? Anxiety depression ??? Cancer colon cancer ??? Cataract ??? Dry mouth ??? Glaucoma glaucoma suspect ??? Hyperlipidemia ??? Hypertension SURGICAL HISTORY Past Surgical History: Procedure Laterality Date ??? PRO COLONOSCOPY, BIOPSY N/A 08/05/2014 COLONOSCOPY FLEXIBLE, WITH BX performed by Iggy Lopez MD at [facility] ??? PRO COLONOSCOPY, DIAGNOSTIC N/A 08/05/2014 COLONOSCOPY, DIAGNOSTIC performed by Iggy Lopez MD at [facility] SOCIAL HISTORY Currently works as a caregiver. Single. Has one son. HABITS Denies tobacco use. Occasional alcohol use. Denies using other substances. FAMILY HISTORY Denies family history of celiac disease, esophageal cancer, stomach cancer, colon cancer, pancreatic or liver issues, and IBD. PHYSICAL EXAM: GENERAL: Healthy-appearing in no acute distress. Appears stated age. Well nourished. SKIN: No lesions, rashes, lumps, or angiomas on exposed skin. NECK: No adenopathy. No thyromegaly. HEENT: PERRL, EOMI, mucosa clear without ulceration or lesions, normal Dentition LUNGS: Clear to auscultation bilaterally COR: Regular, normal S1 and S2 without murmurs. ABD: Tympanic. Tenderness deep palpation epigastrium. No rebound or guarding. Normal active BS. Soft, non-distended. No bruits. No organomegaly. EXT: No cyanosis, clubbing, or edema. NEURO: Alert and oriented to person, place, time, and situation. Cranial nerves II-XII intact. PSYCH: Mood appropriate. Good eye contact. Normal interaction. Answers all questions appropriately. LABS: ASSESSMENT 1. NANI Admits to history of NSAID use. We reviewed adverse effects of NSAIDs on the GI tract including erosions, ulcers, and bleeds. Recommend stopping NSAIDs. Tylenol is okay. Recommend omeprazole 20mg once daily. We reviewed medication indications, administration, and side effects. Consider utility of EGD. Consider utility of Law pH. Consider utility of HREM. 2. DIARRHEA/CONSTIPATION Reassured by colonscopy in 2015. She does have that history of colorectal cancer, but her symptoms have been improving and no red flag warning signs. Reasonable to try more conservatively. If no improvement in 4-6 weeks consider utility of colonoscopy. She does not meet NE IV criteria for IBS. Intermittent diarrhea and constipation. There seems to be a pelvic floor component to her symptoms given urinary issues. She has noticed some improvement with miralax. Recommend clean-out. She prefers miralax clean-out. Recommend miralax as needed. Recommend low-FODMAP diet. Literature reviewed and provided. Consider utility of HBT. Consider utility of pelvic floor dysfunction. PLAN 1. Stop NSAIDs. 2. Omeprazole 20mg once daily 30-60 minutes prior to eating first meal of the day for 8 weeks, thendecrease to every other day for 2 weeks, then stop. 3. Expect some rebound reflux for one to two weeks after stopping omeprazole. You can take TUMs or gaviscon as needed. 4. One small bottle of miralax mixed in one gallon of gatorade. Drink until no longer passing chunks of stool 5. Miralax one full capful at bedtime if no bowel movement that morning 6. Low-FODMAP diet x 2-4 weeks. Gradually reintroduce one food at a time to identify triggers. 7. Follow up 4-6 weeks if needed I have provided her with my contact information. She has been encouraged to contact me with any questions or concerns. TIME SPENT WITH PATIENT 55 minutes of this 60 minute visit were spent in [id number] discussion and counseling the patientas detailed per above. Signed, Luz Ho, AGENCY OWNER 11/29/17 3:02 PM Section of Gastroenterology & Hepatology [facility] documented in this encounter Plan of Treatment Upcoming Encounters Date Type Department Care Team (Late st Contact Info) Description 02/17/2024 1:00 PM EDT Office [place] [address] Julian Kate MD [facility] [place] [address] documented as of this encounter Visit Diagnoses Diagnosis Gastroesophageal reflux disease, esophagitis presence not specified Diarrhea, unspecified type Constipation, unspecified constipation type documented in this encounter Care Teams Training And Development Rep Relationship Specialty Start Date End Date Nadege Mgcregor PA PCP - General Orthopaedic Surgery 09/20/17 11/14/20 documented as of this encounter
--- OUTSIDE RECORDS SUMMARY | 2024-01-07 02:47 | XMS_ITS | Encounter Summary ---
Author Organization [facility] [place] [address] Care Team Providers Care Clay Worker Name Role Phone Reny Jamila London APRN Primary Care Provider [phone] Encounter Details Date Type Department Care Team (Latest Contact Info) Description 08/05/2014 9:25 AM EDT - 08/05/2014 12:50 PM EDT Hospital Encounter [place] [address] Iggy Lopez MD [facility] [place] [address] Discharge Disposition: Home Social History Tobacco Use [...] through Care Everywhere. * COLONOSCOPY : POST-OP (FAROESE) documented in this encounter Medications at Time [...] LACKEY : 1950 Age: 63 y.o. Address: [address] [address] (home) Mobile: No relevant phone numbers on [...] 1:00 PM EDT Office Visit Endocrinology at [facility] [place] [address] Julian Kate MD [facility] [place] [address] documented as of this encounter Procedures Procedure [...] (08/05/2014 11:36 AM EDT) Final Diagnosis ? [facility] ? Provider: ?? IGGY LOPEZ ?Pt. Name: ?? CHRISTOPHE LACKEY ? Acc #: ?[id number] ?Pt. ? Col Date: ?? 08/05/2014 ? /Sex: ?1950,(63 years),Female ? Rec Date: ?? 08/05/2014 ? LOC: ?4T ? SURGICAL PATHOLOGY ? ---Pathologic Diagnosis--- ? Transverse and ascending colon, polypectomy: ?Fragments of tubular adenoma. ? CR-0, CR-PX ? 08/06/14 ? BJM ? 08/06/14 Verified by: ? Moiz Dumont MD ? Pathologist ? (Electronic Signature) ? The [...] Diagnosis: ? Same 08/06/2014 5:18 PM EDT [facility] GI Biopsy 08/05/2014 11:3 6 AM EDT 08/05/2014 11:36 AM EDT Iggy Lopez MD PATHOLOGY/CYTOLOGY O ALETHAERAZAYRA Performing Organization Address [facility]/State/[facility] [place] Phone Number [facility] [place] [address] * Specimen to Pathology (surgical or derm) (08/05/2014 11:36 AM EDT) AP Specimen 08/05/2014 11:3 6 AM EDT 08/05/2014 11:36 AM EDT Narrative [facility] - 08/05/2014 11:36 AM EDT Specimen requisition ordered. ??Separate Pathology report to follow Iggy Lopez MD PATHOLOGY/CYTOLOGY O RDERABLES [facility] * COLONOSCOPY (08/05/2014 10:45 AM EDT) COLONOSCOPY [facility] Patient Name: Christophe Lackey ? Procedure Date: 08/05/2014 10:45 AM ? N: [id number] ? Date of : 1950 ? Age: 63 ? Order #: [id number] ? Procedure: ? Colonoscopy Indications: ? H/o colon cancer , now with ? change in bowels Providers: ? Iggy Lopez MD, Tuilo Weir ? , JAMAAL, Kylee Conner, ? Project Safety Manager Referring MD: ?Jamila Oglesby MD Medicines: ? [...] Diagnoses Not on filedocumented in this encounter Active and Recently Administered Medications Times are shown in EDT. PRN Medication Order 08/03/2014 08/04/2014 08/05/2014 fentaNYL 50 mcg/mL multi-dose injection (CANCELED) ONCE PRN, Starting on Osiris 3 at 1106, Until Osiris 3 at 1241, Intra-Operative (Intra-Procedure), Routine 1056 (Given [...] injection (CANCELED) ONCE PRN, Starting on Osiris 3/15 at 1056, Until Osiris 315 at 1241, Intra-Operative (Intra-Procedure), Routine 1056 (Given - Provid er: Tulio Paul RN - Comment: see fentanyl same time)1059 (Given - Provider: Tulio Paul RN - Comment: see fentanyl same time)1102 (Given - Provider: Tulio Paul RN - Comment: see fentanyl same time) documented in this encounter Care Teams Clay Worker Relationship Specialty Start Date End Date Jamila Oglesby APRN PCP - General 07/23/14 09/19/17 documented as of this encounter
--- OUTSIDE RECORDS SUMMARY | 2024-01-07 02:47 | XMS_ITS | Encounter Summary ---
Author Organization [facility] Address [facility] [place] [address] Care Team Providers Care Commissions Manager Name Role Phone Mary Barton APRN Primary Care Provider [phone] Encounter Details Date Type Department Care Team (Latest Contact Info) Description 12/19/2020 9:30 AM EDT - 12/19/2020 11:59 PM EDT Hospital Encounter XRay at [address] [place] [address] Juan Marie MD [facility] [place] [address] Pain in both knees, unspecified chronicity; History of total knee arthroplasty, right Discharge Disposition: Home Social History Tobacco [...] Sig Dispensed Refills Start Date End Date meloxicam (MOBIC) 15 mg Tablet You can take naproxen OR meloxicam OR ibuprofen/motrin. Take daily as needed 30 tablet 12 02/18/2021 acetaminophen (Tylenol) 500 mg Tablet Take 2 tablets by mouth every 8 hours. 0 02/18/2021 polyethylene glycoL (Miralax) 17 gram Powder in Packet Take 17 g by mouth daily. fluticasone propionate (Flonase) 50 mcg/actuation [place], Suspension SHAKE LIQUID AND USE 2 SPRAYS [...] needed for Pain. 30 tablet 02/18/2021 02/23/2021 escitalopram oxalate (LEXAPRO) 5 mg Tablet Daily 02/04/2020 02/06/2021 docusate sodium (Colace) 100 mg Capsule Three times a day, as needed 12/01/2020 05/01/2021 meloxicam (MOBIC) 15 mg Tablet Daily 03/18/2020 02/18/2021 oxyCODONE-acetaminop hen (Percocet) 5-325 mg Tablet Three times a day, as needed 12/01/2020 02/06/2021 rizatriptan (MAXALT) 5 mg Tablet Maxalt 5 mg tablet Take 1 tablet by oral route. 03/20/2021 naproxen sodium (ANAPROX) 220 mg Tablet Take 220 mg by mouth 2 times daily (with meals). 02/18/2021 sertraline (ZOLOFT) 25 mg Tablet Take 25 mg by mouth as needed. 02/06/2021 aspirin 81 mg Tablet, Delayed Release (E.C.) Take 81 mg by mouth daily. 02/18/2021 UNKNOWN TO PATIENT Anti depress for SAD 0 02/06/2021 documented as of this encounter Plan of Treatment Upcoming Encounters Date Type Department Care Team (Late st Contact Info) Description 02/17/2024 1:00 PM EDT Office [place] [address] Julian Kate MD [facility] [place] [address] documented as of this encounter Procedures Procedure Name Priority Date/Time Associated Diagnosis Comments XR KNEE STANDING ALIGNMENT AP LAT [place] SKYLINE BILAT Routine 12/19/2020 9:50 AM EDT Pain in both knees, unspecified chronicity History of total knee arthroplasty, right documented in this encounter Results * XR Knee Standing Alignment AP Lat [place] Bilat (12/19/2020 9:50 AM EDT) Anatomical Region Laterality Modality Bilateral Digital Radiogra phy Narrative 12/19/2020 1:09 PM EDT EXAMINATION: XR KNEE STANDING ALIGNMENT AP LAT [place] SKYLINE BILAT CLINICAL HISTORY: BILATERAL KNEE PAIN// RIGHT TKA TECHNIQUE: Separate images of the pelvis, knees and feet were acquired in the AP projection with the patient standing. These images were stitched together to form a composite image of the pelvis and legs allowing for evaluation of lower extremity alignment in the weight bearing position. COMPARISON: Outside right knee examination, April 2015. FINDINGS: Exam 1 - Standing alignment The right weight bearing axis is midline. The left weight bearing axis is near midline, 8 mm medial to the tibial eminence. Exam 2: Standing AP , PA [place], lateral and skyline views of both knees Right A right total knee arthroplasty is present. Alignment: The prosthesis is unchanged in alignment. Complication: There is no loosening or fracture. There is a small right knee effusion. Left Narrowed medial and lateral knee joint spaces with osteophyte formation and minimal subchondral sclerosis. There is a small left knee effusion. Normal patellofemoral alignment and joint spaces. Soft tissues: No chondrocalcinosis. Impression 1. ??Unchanged and Uncomplicated right total knee arthroplasty 2. ??Moderate-severe left knee osteoarthropathy with severely narrowed medial and lateral compartment joint spaces most severe in the medial compartment. Thank you for letting us participate in the care of this patient. ??If you are a health care provider and have any questions regarding this report, please contact the number below. ??For patients who have questions please contact the health furnace caretaker that requested your imaging first. ? Electronically signed by: Karmen Collins MD, [facility] ([phone]), at 12/19/2020 1:09 PM Procedure Note Karmen Collins MD - 12/19/2020 EXAMINATION: XR KNEE STANDING ALIGNMENT AP LAT [place] SKYLINE BILAT CLINICAL HISTORY: BILATERAL KNEE PAIN// RIGHT TKA TECHNIQUE: Separate images of the pelvis, knees and feet were acquired inthe AP projection with the patient standing. These images were stitched togetherto form a composite image of the pelvis and legs allowing for evaluation oflower extremity alignment in the weight bearing position. COMPARISON: Outside right knee examination, April 2015. FINDINGS: Exam 1 - Standing alignment The right weight bearing axis is midline. The left weight bearing axis is near midline, 8 mm medial to the tibial eminence. Exam 2: Standing AP , PA [place], lateral and skyline views of bothknees Right A right total knee arthroplasty is present. Alignment: The prosthesis is unchanged in alignment. Complication: There is no loosening or fracture. There is a small right knee effusion. Left Narrowed medial and lateral knee joint spaces with osteophyte formationand minimal subchondral sclerosis. There is a small left knee effusion.Normal patellofemoral alignment and joint spaces. Soft tissues: No chondrocalcinosis. Impression 1. Unchanged and Uncomplicated right total knee arthroplasty 2. Moderate-severe left knee osteoarthropathy with severely narrowedmedial and lateral compartment joint spaces most severe in the medial compartment. Thank you for letting us participate in the care of this patient. If youare a health care provider and have any questions regarding this report,please contact the number below. For patients who have questions please contactthe health furnace caretaker that requested your imaging first. Electronically signed by: Karmen Collins MD, [facility]([phone]), at 12/19/2020 1:09 PM Juan Marie MD IMG DX ORDERABLES documented in this encounter Visit Diagnoses Diagnosis Pain in both knees, unspecified chronicity History of total knee arthroplasty, right documented in this encounter Care Teams Commissions Manager Relationship Specialty Start Date End Date Mary Barton APRN PCP - General Family Medicine 11/15/20 documented as of this encounter
--- OUTSIDE RECORDS SUMMARY | 2024-01-07 02:47 | XMS_ITS | Encounter Summary ---
Author Organization [facility] [place] [address] Care Team Providers Care Fur Trimming Machine Operator Name Role Phone Magan Haq MD Primary Care Provider [phone] Encounter Details Date Type Department Care Team (Late st Contact Info) Description 04/15/2012 Ancillary Procedure [place] [address] Nadege Mcgregor PA [address] [place] [address] Social History Tobacco Use Types Packs/Day Years [...] 1:00 PM EDT Office Visit [place] [address] Julian Kate MD [facility] [place] [address] documented as of this encounter Procedures Procedure Name Priority Date/Time Associated Diagnosis Comments FILM LIBRARY STORAGE ONLY MR KNEE Routine 04/15/2012 12:00 AM EST documented in this encounter Results * Film Library- Storage Only MR Knee (04/15/2012 12:00 AM EST) Narrative [facility] - 05/23/2020 1:35 PM EST This exam is auto-finalizing. It's purpose is for storage only. Nadege BECKHAM IMG FILM LIBRARY ORDERABLES [place], [place] documented in this encounter Visit Diagnoses Not on filedocumented in this encounter Care Teams Fur Trimming Machine Operator Relationship Specialty Start Date End Date Magan Haq MD [address] [place] [id number] PCP - General 04/18/10 07/22/14 documented as of this encounter
--- OUTSIDE RECORDS SUMMARY | 2024-01-07 02:47 | XMS_ITS | Encounter Summary ---
Author Organization [facility] [place] [address] Care Team Providers Care Scowman Name Role Phone Nadege Mcgregor Primary Care Provider + Encounter Details Date Type Department Care Team (Late st Contact Info) Description 12/23/2019 Ancillary Procedure [place]iology [place] [phone] Nadege Mcgregor PA [address] [place] [address] Social History Tobacco Use Types Packs/Day Years [...] 1:00 PM EDT Office [place] [phone] Julian Kate MD [facility] [place] [address] documented as of this encounter Procedures Procedure Name Priority Date/Time Associated Diagnosis Comments FILM LIBRARY STORAGE ONLY DX KNEE Routine 12/23/2019 12:00 AM EDT documented in this encounter Results * Film Library- Storage Only DX Knee (12/23/2019 12:00 AM EDT) Narrative SHAHID - 05/23/2020 1:34 PM EST This exam is auto-finalizing. It's purpose is for storage only. Nadege BECKHAM IMLita FILM LIBRARY ORDERABLES Performing Organization Address City/State/[facility] Co de Phone Number [place], [place] documented in this encounter Visit Diagnoses Not on filedocumented in this encounter Care Teams Scowman Relationship Specialty Start Date End Date Nadege Mcgregor PA PCP - General Orthopaedic Surgery 09/20/17 11/14/20 documented as of this encounter
--- OUTSIDE RECORDS SUMMARY | 2024-01-07 02:47 | XMS_ITS | Encounter Summary ---
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 Andre Tavares MD [address] [place] [address] [facility] [address] [place] [id number] Referral ID Status Reason Start Date Expiration Date V isits Requested Visits Authorized [id number] Closed Consult, Test & Treat Connection Center PCP Updated and/or Approved 11/07/2020 11/07/2021 6 6 Encounter Details Date Type Department Care Team (Late st Contact Info) Description 12/19/2020 10:10 AM EDT Office [place] [address] Juan Marie MD [facility] [place] [address] Debility; Pain of right lower extremity; Failed [...] Sign Reading Time Taken Comments Blood Pressure 109/70 12/19/2020 10:08 AM EDT Pulse 79 12/19/2020 10:08 AM EDT Temperature - - Respiratory Rate - - Oxygen Saturation - - Inhaled Oxygen Concentration - - Weight 110.2 kg (243 lb) 12/19/2020 10:08 AM EDT Height 154.9 cm (5' 1) 12/19/2020 10:08 AM EDT Body Mass Index 45.91 12/19/2020 10:08 AM EDT documented in this encounter Progress Notes * Marco Evangelista Loulou - 12/19/2020 10:10 AM EDT I saw Pari and reviewed the pre-operative process with the patient per Dr. Marie. The patient is pursuing a right total knee revision . she will need to see Dr. Clarke for pre-operative clearance and discuss post operative anticoagulation plan before undergoing surgery. We discussed the risks of a total knee arthroplasty: Bleeding, infection, scar formation, dislocation, leg length inequality, persistent pain, stiffness, bursitis, failure/wear/loosening/breakage of implants, implant malposition, need for additional/future surgery, fracture, clot formation, embolus, stroke, nerve palsy, blood vessel injury, skin numbness, anesthetic and/or medical complications, . We also reviewed their preferences regarding use of blood products and confirmed that while we would endeavor to minimize the risks of needing any transfusions, if circumstances were such that one ormore were indeed required, she would NOT refuse a blood transfusion. We reviewed options for postoperative DVT prophylaxis, based on AAOS guidelines. We discussed the pros and cons of different anticoagulants in terms of effectiveness and clot / embolus preventions vs. risks of bleeding and wound complications. I reviewed risks associated with taking opioid pain medication, and Pari signed the acute opioidpain management contract with no other questions at this time. Pari personal risk assessment wascompleted. Opioid PDMP 12/19/2020 [place] PDMP Query Date 12/19/2020 [place] PDMP Query Date 12/19/2020 [place] PDMP Query Date 12/19/2020 Clotting and Bleeding Assessment Genetic predisposition or history of DVT or PE: No Hypercoaguable state?: No History of bleeding disorder?: No GI bleed or history of hemorrhagic stroke within the past 2 years: No Patient on lifelong anticoagulant for other reasons: Other, see comment (81mg ASA preventative for BP concerns) Discharge anticoagulation plan: ASA 81mg BID for 30 days Infection Prevention Patient demonstrated appropriate skin integrity/infection knowledge level after instructions provided: Yes Patient demonstrated appropriate dental prophylaxis knowledge level after instructions provided: Yes Patient demonstrated appropriate understanding of chlorhexideine wash and mupirocin ointment: Yes General Assessment Total joint preparedness for surgery: 1:1, Received binder Patient understands when to call the office pre-op and post-op: Verbalizes understanding Assistive device(s) used pre-op: Straight cane Patient currently on narcotics: No Patient has narcotic agreement signed: No Pari was given nasal Mupirocin to use twice daily for five days prior to surgery, along with chlorhexidine soap to use the night before and the morning of surgery. Additional instructions were given to the patient if they had other questions as well. The patient prefers two-wheeled walker to help with post-operative ambulation. The patient has a walker and will bring it to surgery. Prep for Surgery Advance Directive: Would like to complete at another time Recommend referral to Patient Financial Services: No Living arrangement: Apartment Home layout: Able to live on main level, One level, Stairs to enter w/ rails Number of stairs within home: 0 Who will provide post-op care and support: Sister Who will provide transportation home: Sister possibly Patient's desired discharge disposition: Home Top 3 nursing choice facilities: n/a VNA preference: [facility] PT from VNA Outpatient PT preference: No Pref Discharge barriers and challenges: None at this time Post operative orthopaedic anti-coagulation plan: ASA 81 mg BID for 30 days Chronic anti-coagulation: yes, preventative Expedited Discharge Candidate?: NO Patient is planning to be discharged home with VNA. 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 Upon discharge we will give the patient Naprosyn to take for 6 weeks after surgery for post-operative pain management. Steve Jara. LAT, ATC, OTC * Juan Marie MD - 12/19/2020 10:10 AM EDT Images from the original note were not included. Department of Orthopaedics Division of Adult Joint Reconstructive Surgery December 19, 2020 I had the pleasure of evaluating Pari Lackey in clinic in conjunction with Dr. Carlin. I have seen the patient and reviewed the history/physical and I agree with the details as written. The assessment and plan were formulated in discussion with me and I agree with them as documented. In brief this is a pleasant 70-year-old morbidly obese female with a BMI around 55 who presents with a chief complaint of a right stiff total knee replacement and a painful left arthritic knee. Her right knee was performed by Dr. Saucedo several years ago. She was subsequently taken back to the operating room for an open synovectomy. Her range of motion now is about 0 to 30 degrees. She is a wel l-healed midline incision and the knee is globally stiff. On her other side she has severe osteoarthritis with global pain. Her arthritis pain got so bad recently she was [facility] to [facility]. She underwent intra- articular injection about 6 or 8 weeks ago and this is helped. Has been referred to me to discuss treatment options. Her x-rays show severe arthritis of the left knee. Right side has what appears to be a [employer] knee which may be slightly overstuffed. Overall though there does not appear to be any ben periprosthetic complication. We do lengthy discussion about both her knees. At this point her right knee really impedes her ability to ambulate and get around secondary to the severe arthrofibrosis. We discussed consideration ofcomplete knee revision with removal of all the current implants and potentially downsizing her implants to try to improve the amount of flexion she has. I outlined if she can get 0 to 90 degrees thatwould be a win. After revision of the right side we can consider left knee replacement at some point in the future. We discussed waiting minimally 3 months after her last injection. We discussed her weight and the increased risk of complications specifically infection secondary to her weight and she is actively working on try to lose weight with her primary care doctor. At this point the patient would like to proceed with surgery on the right side I think this is reasonable. I had a long discussion with her regarding the risks and benefits of total knee arthroplasty revision. I indicated that in my opinion, this is the treatment option most likely to restore a more normal, pain-free level of function and that we have exhausted reasonable non-operative alternatives. expressed a desire to pursue this option. We then discussed in great detail the risks associated with the proposed surgery. These included but were not limited to: bleeding (which may or may not require transfusion), infection, neurologic injury, lateral skin numbness, blot clot, prosthetic failure/loosening, prosthetic clicking, fracture,persistent pain (incomplete resolution of pain), medical complications, and possible need for revision surgery. The patient seemed to understand the nature of this procedure's risks. We also discussed the likely benefit of improved stride length, improved range of motion, decreased pain, decreased need for pain medications and decrease functional limitations. The patient is aware that it would take on average of one day in the hospital, followed by approximately 12- 18 months to full rehabilitation. I then had her meet with our pre-operative team today in clinic. All questions were answered. Juan Marie MD, MS [employer] Dyer, Division of Adult Reconstructive Benefits OfficerCity Secretary of Orthopaedics Department of [place]opaedics [facility] [phone] * Albert Carlin MD - 12/19/2020 10:10 AM EDT Arthroplasty History/Previous Knee Surgery: 1. R TKA 2014- Dr. Collazo 2. R TKA synovectomy 2017- Dr. Collazo Chief Complaint: Chief Complaint Patient presents with ??? Establish Care ARTHROFIBROSIS OF TOTAL KNEE PAINFUL RIGHT TKA//DISCUSSION OF L TKA This patient was referred from Andre Tavares MD [address] [place] [id number] I.D.: Pari Lackey is a 70 y.o. year old female being seen today to discuss her bilateral knees. Her history and physical exam were reviewed in detail. In brief, the patient has a history of a right total knee replacement performed in [address] Collazo that was complicated by arthrofibrosis and decreased range of motion requiring a synovectomy which was performed in 2017. The patient believes that after her first [...] 12/19/20 81 Height: 154.9 cm (5' 1) Weight: 110.2 kg (243 lb) Body mass index is 45.91 kg/m??. PHYSICAL [...] Treatments, PreExisting Condition, Health Habits, About You 09/22/2020 PROMIS-10 General Health Good PROMIS-10 Quality of Life Good PROMIS-10 Physical Health Fair PROMIS-10 Mental Health Fair PROMIS-10 Social Activity Good PROMIS-10 Everyday Activities Moderately PROMIS-10 Pain 2 PROMIS-10 Fatigue Severe PROMIS-10 Social Roles Fair PROMIS-10 Anxious or Depressed Often PROMIS PHYSICAL SCORE (range 16-68) 37.4 PROMIS MENTAL SCORE (range 21-68) 38.8 No flowsheet data found. No flowsheet data [...] -Diabetes with hemoglobin A1C > 7.5: No Albert Carlin MD Orthopaedic Surgery 12/19/2020 documented in this encounter Plan of Treatment Upcoming Encounters Date Type Department Care Team (Late st Contact Info) Description 02/17/2024 1:00 PM EDT Office [place] [address] Julian Kate MD [facility] [place] [address] documented as of this encounter Results * XR Knee Standing Alignment AP Lat [place] Right (03/20/2021 11:41 AM EDT) Anatomical Region [...] who have questions please contact the health day care worker that requested your imaging first. ? Electronically signed by: Krystina Sun MD, [facility] ([phone]), at 03/20/2021 11:54 AM Narrative 03/20/2021 11:54 [...] knee and lower extremity radiographs December 19 andSept2020 FINDINGS: Survey: Lumbar spondylosis is partially imaged. [...] patients who have questions please contactthe health day care worker that requested your imaging first. Juan Marie MD IMG DX ORDERABLES * Hemoglobin A1c (02/06/2021 2:44 PM EDT) Hemoglobin A1c 5.4 4.3 - 5.6 % [facility] Comment: Reference Range: 4.3 [...] Mellitus, Diabetes Care 2013; 36: Suppl. 1, W27-11 Estimated Average Glucose 109 mg/dL [facility] Comment: eAG equivalents for [...] into estimated average glucose values. ??Diabetes Care 2008:31(8):3501-5224. Blood 02/06/2021 2:44 PM EDT 02/06/2021 2:53 PM EDT Narrative Resulting Agency Comment Spec In Lab Juan Marie MD CHEMISTRY ORDERABLE S [facility] [place] [address] * Protein, total (02/06/2021 2:44 PM EDT) Protein, Total 6.7 6.1 - 8.0 gm/dL [facility] Blood 02/06/2021 2:44 PM EDT 02/06/2021 2:53 PM EDT Narrative Resulting Agency Comment Spec In Lab Juan Marie MD CHEMISTRY ORDERABLE S [facility] [place] [address] * Albumin Level (02/06/2021 2:44 PM EDT) Albumin 4.5 3.2 - 5.2 gm/dL [facility] Blood 02/06/2021 2:44 PM EDT 02/06/2021 2:53 PM EDT Narrative Resulting Agency Comment Spec In Lab Juan Marie MD CHEMISTRY ORDERABLE S Performing Organization Address City/[facility] Co de Phone Number [facility] [place] [address] * CRP, acute inflammation (02/06/2021 2:44 PM EDT) C-Reactive Protein <3.0 <=4.9 mg/L [facility] Blood 02/06/2021 2:44 PM EDT 02/06/2021 2:53 PM EDT Narrative Resulting Agency Comment Spec In Lab Juan Marie MD CHEMISTRY ORDERABLE S Performing Organization Address City/[facility]/ZIP Co de Phone Number [facility] [place] [address] * Sedimentation rate (02/06/2021 2:44 PM EDT) Sedimentation Rate Automated 19 2 - 39 mm/hr [facility] Comment: Effective May 06, 2019 new capillary photometric technology has resulted in a change in reference ranges. It is recommended that each ESR result be reviewed with its own age appropriate reference range. Blood 02/06/2021 2:44 PM EDT 02/06/2021 2:53 PM EDT Narrative Resulting Agency Comment Spec In Lab Juan Marie MD HEMATOLOGY ORDERABL ES Performing Organization Address [facility] Co de Phone Number [facility] [place] [address] * APTT (02/06/2021 2:44 PM EDT) Partial Thromboplastin Time 32 25 - 37 sec [facility] Comment: The PTT is NOT appropriate for heparin monitoring. Use the Anti-Xa level for heparin monitoring (HEP UFH) or LMWH monitoring (HEP LMW). A PTT less than 37 seconds generally indicates adequate hemostasis. Blood 02/06/2021 2:44 PM EDT 02/06/2021 2:53 PM EDT Narrative Resulting Agency Comment Spec In Lab Juan Marie MD HEMATOLOGY ORDERABL ES Performing Organization Address [facility] de Phone Number [facility] [place] [address] * Prothrombin Time (02/06/2021 2:44 PM EDT) Prothrombin Time 11.4 9.4 - 12.5 sec [facility] International Normalization Ratio 1.0 [facility] Comment: An INR <2.0 [...] MD HEMATOLOGY ORDERABL ES Performing Organization Address [facility] Co de Phone Number [facility] [place] [address] * (ABNORMAL) Basic Metabolic Panel (non-fasting) (02/06/2021 2:44 PM EDT) Glucose 96 65 - 199 mg/dL [facility] Comment:Diabetes: >=200 mg/d L plus symptoms Blood Urea Nitrogen 16 8 - 18 mg/dL [facility] Creatinine 0.85 0.70 - 1.20 mg/dL [facility] Sodium 146(H) 135 - 145 mmol/L [facility] Potassium 5.0 3.5 - 5.0 mmol/L [facility] Comment: Please note: ??Patients with WBC >100,000 may have falsely elevated Potassium levels. ??For accurate Potassium quantification in these patients send serum separator tube (gold top) for subsequent determinations. ??Contact the Clinical Chemistry Laboratory if there are any questions. Chloride 107 98 - 107 mmol/L [facility] Carbon Dioxide 29 22 - 31 mmol/L [facility] Anion Gap 10 5 - 15 mmol/L [facility] Calcium 9.5 8.5 - 10.5 mg/dL [facility] Est Glomerular Filtration Rate 70 >=60 mL/min/1. 73 m?? [facility] Comment: This patient? s [...] Lab Juan Marie MD CHEMISTRY ORDERABLE S [facility] [place] [address] * EKG 12 Lead (02/06/2021 2:04 PM EDT) Ventricular rate 66 BPM MUSE SYSTEM Atrial Rate 66 BPM MUSE SYSTEM P-R Interval 178 ms MUSE SYSTEM QRS Duration 94 ms MUSE SYSTEM Q-T Interval 444 ms MUSE SYSTEM QTC Calculated (Bezet) 465 ms MUSE SYSTEM Calculated P Owings 63 degrees MUSE SYSTEM Calculated R Owings 39 degrees MUSE SYSTEM Calculated T Owings 55 degrees MUSE SYSTEM INTERPRETATION Normal sinus [...] knee joint, right Hyperglycemia Other abnormal glucose Debility Debility, unspecified Pain of right lower extremity Failed total knee arthroplasty, initial encounter Arthrofibrosis of knee joint, right documented in this encounter Care Teams Mail Handlers Supervisor Relationship Specialty Start Date End Date Mary Barton APRN PCP - General Family Medicine 11/15/20 documented as of this encounter
--- OUTSIDE RECORDS SUMMARY | 2024-01-07 02:47 | XMS_ITS | Encounter Summary ---
Author Organization [facility] [place] [address] Care Team Providers Care Manager Welding Name Role Phone Nadege Mcgregor Primary Care Provider + Encounter Details Date Type Department Care Team (Late st Contact Info) Description 12/23/2019 12:05 AM EDT Ancillary Procedure [place] [phone] Nadege Mcgregor PA [address] [place] [address] Social History Tobacco Use Types Packs/Day Years [...] 1:00 PM EDT Office [place] [phone] Julian Kate MD [facility] [place] [address] documented as of this encounter Procedures Procedure Name Priority Date/Time Associated Diagnosis Comments FILM LIBRARY STORAGE ONLY DX PELVIS Routine 12/23/2019 12:05 AM EDT documented in this encounter Results * Film Library- Storage Only DX Pelvis (12/23/2019 12:05 AM EDT) Narrative [facility] - 05/23/2020 1:38 PM EST This exam is auto-finalizing. It's purpose is for storage only. Nadege EBCKHAM IMG FILM LIBRARY ORDERABLES Performing Organization Address City/State/[facility] Co de Phone Number [place], [place] documented in this encounter Visit Diagnoses Not on filedocumented in this encounter Care Teams Manager Welding Relationship Specialty Start Date End Date Nadege Mcgregor PA PCP - General Orthopaedic Surgery 09/20/17 11/14/20 documented as of this encounter
--- OUTSIDE RECORDS SUMMARY | 2024-01-07 02:47 | XMS_ITS | Encounter Summary ---
Author Organization [facility] Address [facility] [place] [address] Care Team Providers Care Egg Grader Name Role Phone Jamila Oglesby APRN Primary Care Provider [phone] Reason for Visit * Reason Comments Diplopia Encounter Details Date Type Department Care Team (Late st Contact Info) Description 10/12/2016 10:30 AM EDT Office [place] [address] Verónica Feliciano MD [facility] [place] [address] Fourth nerve palsy of left eye Social History Tobacco Use Types Packs/Day Years [...] as of this encounter Progress Notes * Verónica Feliciano MD - 10/12/2016 10:30 AM EDT Pari Lackey is a 65 y.o. female with resolved diplopia, with h/o acute onset fourth nerve palsy08/01/2016, in context of a migraine headache. AMARO and diplopia slowly resolved. Normal neuroimaging. There is no deviation on exam today, and no diplopia. No prior similar episodes. 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 If recurrent diplopia, I recommend sensorimotor exam f/u. 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
[2024-01-07 15:55] LABS: Hemoglobin A1C 6.1 % (<5.7)
[2024-01-07 23:21] LABS: CEA 3.3 ng/mL (See Note)
== END 2024-01-07 02:44 | disposition home or self-care (01) ==
LOC: LBO 02:43
PROVIDERS: PCP Nurse Practitioner Family; Referring Provider Nurse Practitioner Family; Visit Provider Nurse Practitioner Family
DX: R73.03 Prediabetes (principal); Z85.038 Personal history of other malignant neoplasm of large intestine
CPT/HCPCS: 36415; 82378; 83036

== ENCOUNTER 2024-01-31 09:45 | Outpatient (CLI) | payer MEDICARE, SELFPAY ==
--- NOTE | 2024-01-31 09:30 | DI.RAD_ITS ---
Exam(s) XR HIP PELVIS ADULT BL EXAM: XR HIP PELVIS ADULT BL CLINICAL HISTORY: pain in hips, M25.551 M25.552. TECHNIQUE: 2D digital imaging was performed of the pelvis and bilateral hips. Three images were obt ained. AP pelvis and lateral views of both hips were obtained. COMPARISON: CR XR HIP PELVIS ADULT BL from 12/23/2019 FINDINGS: BONES: No acute fracture is present. No bony destructive lesion is seen. JOINTS: No dislocation present. In the right hip, there is marked narrowing of the superior joint spa ce. There is is subchondral sclerosis present and an acetabular osteophyte. In the left hip, there is moderate narrowing of the joint space and acetabular osteophyte. Mild degenerative changes are se en in the lower visualized lumbar spine in the sacroiliac joints. SOFT TISSUE: Normal. IMPRESSION: Osteoarthritis of the hips, right greater than left. DATA REPOSITORY: RADIATION DOSE DELIVERED:
== END 2024-01-31 10:05 ==
LOC: DI 09:46
PROVIDERS: PCP Nurse Practitioner Family; Visit Provider Nurse Practitioner Family
DX: M16.0 Bilateral primary osteoarthritis of hip (principal)
CPT/HCPCS: 73521

== ENCOUNTER → 2024-03-09 10:23 | Outpatient (BNVA) | payer MEDICARE, SELFPAY | PROVIDERS: PCP Nurse Practitioner Family; Referring Provider Nurse Practitioner Family; Visit Provider Physician Assistant | DX: M16.0 Bilateral primary osteoarthritis of hip; Z96.651 Presence of right artificial knee joint | CPT/HCPCS: 99213 ==

== ENCOUNTER → 2024-04-02 07:55 | Outpatient (BNVA) | payer MEDICARE, SELFPAY | PROVIDERS: PCP Nurse Practitioner Family; Referring Provider Nurse Practitioner Family; Visit Provider Student in an Organized Health Care Education/Training Program | DX: M17.12 Unilateral primary osteoarthritis, left knee (principal); M16.11 Unilateral primary osteoarthritis, right hip; M16.12 Unilateral primary osteoarthritis, left hip | CPT/HCPCS: 20611; J1010 ==

== ENCOUNTER → 2024-06-02 10:58 | Outpatient (BNVA) | payer MEDICARE, SELFPAY | PROVIDERS: PCP Nurse Practitioner Family; Referring Provider Nurse Practitioner Family; Visit Provider Podiatrist | DX: L60.3 Nail dystrophy (principal); B35.1 Tinea unguium; R73.03 Prediabetes; R09.89 Other specified symptoms and signs involving the circulatory and respiratory systems; L65.9 Nonscarring hair loss, unspecified | CPT/HCPCS: 99213 ==

== ENCOUNTER 2024-07-02 14:36 | Outpatient (CLI) | payer MEDICARE, SELFPAY ==
--- NOTE | 2024-07-02 11:15 | DI.RAD_ITS ---
Exam(s) XR PELVIS AP EXAM: XR PELVIS AP INDICATION: THR planning. COMPARISON: CR XR HIP PELVIS ADULT BL from 01/31/2024 TECHNIQUE: 2D digital imaging was performed. Single AP view with template ball. FINDINGS: Severe narrowing of the right hip joint space and prominent periarticular spurring similar to prior.. Moderate to severe narrowing of left hip joint space similar to prior.. DATA REPOSITORY: RADIATION DOSE DELIVERED:
== END 2024-07-02 14:37 | disposition home or self-care (01) ==
LOC: DIORS 14:37
PROVIDERS: PCP Nurse Practitioner Family; Referring Provider Nurse Practitioner Family; Visit Provider Student in an Organized Health Care Education/Training Program
DX: M16.11 Unilateral primary osteoarthritis, right hip (principal); M16.12 Unilateral primary osteoarthritis, left hip
CPT/HCPCS: 99214; 72170

== ENCOUNTER 2024-07-21 02:39 | Outpatient (CLI) | payer MEDICARE, SELFPAY ==
[2024-07-21 15:39] LABS: HCT 42.9 % (36.0-46.0); HGB 13.6 g/dL (11.2-15.7); MCH 29.1 pg (27.0-33.0); MCHC 31.7 % (32.0-36.0); MCV 92 fL (80-95); MPV 10.5 fL (8.0-11.0); Platelet Count 214 10^3/uL (130-400); RBC 4.68 10^6/uL (3.93-5.22); RDW 12.4 % (11.7-14.6); RDW-SD 41.7 fL; WBC 7.22 10^3/uL (4.4-10.8)
[2024-07-21 17:27] LABS: Anion Gap 6.7 mmol/L (3-11); BUN 24 mg/dL (7-18); CO2 33.3 mmol/L (21.0-32.0); CREATININE 1.3 mg/dL (0.55-1.02); Calcium 9.8 mg/dL (8.5-10.1); Chloride 105 mmol/L (98-107); Estimated GFR 43.96 (mL/min/1.73m2); Glucose 88 mg/dL (74-106); Potassium 4.3 mmol/L (3.5-5.1); Sodium 145 mmol/L (136-145)
== END 2024-07-21 02:40 | disposition home or self-care (01) ==
PROVIDERS: PCP Nurse Practitioner Family; Visit Provider Student in an Organized Health Care Education/Training Program
DX: M16.12 Unilateral primary osteoarthritis, left hip (principal); Z01.818 Encounter for other preprocedural examination
CPT/HCPCS: 36415; 80048; 85027

== ENCOUNTER 2024-08-12 17:38 | Observation (INO) | payer MEDICARE, SELFPAY ==
[2024-08-12] VITALS (29 sets, daily range): BP systolic 97–156; BP diastolic 49–122; PULSE 64–166; RESP 10–30; TEMP 36–36.8; O2SAT 77–100; BMI 43.4
--- NOTE | 2024-08-12 | DI.RAD_ITS ---
Exam(s) XR FEMUR LT EXAM: XR FEMUR LT CLINICAL HISTORY: pain s/p L BHARATHI. TECHNIQUE: 2D digital imaging was performed of the left femur. Four images were obtained. AP and lat eral views were obtained. COMPARISON: CR XR PELVIS AP from 07/02/2024 XA XR HIP LT IN OR from 08/12/2024 FINDINGS: The patient is now status post left total hip arthroplasty. The orthopedic hardware appears in good position. No suspicious lucencies are seen around the orthopedic hardware. There is a lucency seen at the lateral aspect of the acetabulum. This may be related to the surgery. Fracture cannot be exc luded. The bones are otherwise unremarkable. Tricompartment moderate degenerative changes are seen in the knee. Postsurgical changes are seen in the soft tissues. IMPRESSION: Status post left total knee arthroplasty. DATA REPOSITORY: RADIATION DOSE DELIVERED:
--- NOTE | 2024-08-12 07:31 | PDOC.DSDIS_ITS ---
Date of service: 08/12/24 Discharge Plan Disposition Patient Disposition: Home Condition: Good Discharge Details Reason For Visit: L THR Attending Provider: Andre Tavares Primary Care Provider: Mary Barton Home Meds and New Rx's Prescriptions: New acetaminophen 500 mg tablet 1,000 mg PO TID Qty: 90 3RF aspirin 81 mg tablet,delayed release (DR/EC) 81 mg PO BID Qty: 60 0RF celecoxib 200 mg capsule 200 mg PO BID Qty: 60 0RF dexamethasone 4 mg tablet 4 mg PO DAILY Qty: 2 0RF oxycodone 5 mg tablet 5 mg PO Q4H MDD 6 tabs PRN (Reason: pain) Qty: 20 0RF Continued calcium carbonate-vitamin D3 500 mg-10 mcg (400 unit) tablet 1 tab PO DAILY rizatriptan [Maxalt-AGRICULTURE SCIENCE TEACHER] 5 mg tablet,disintegrating 5 mg PO .COMPLEX PRN Rx Instructions: 5 mg orally Take one tab at onset of headache, may repeat once in 2-4 hours if headache does not improve or recurs. Max daily dose = 2 PRN; Vitamin D2-Vitamin K1 See Rx Instructions PO DAILY Rx Instructions: Take one orally daily; hydrochlorothiazide 12.5 mg tablet 12.5 mg PO DAILY Qty: 90 3RF gabapentin 300 mg capsule 300 mg PO BID Qty: 60 3RF losartan [Cozaar] 50 mg tablet 50 mg PO DAILY Qty: 90 3RF ketoconazole 2 % cream 1 applic topical DAILY Qty: 120 6RF Rx Instructions: Apply to toenails once daily duloxetine 30 mg capsule,delayed release(DR/EC) See Rx Instructions PO BID Qty: 90 3RF Rx Instructions: Take 2 capsule PO QAM, and take 1 capsule PO QHS levothyroxine 50 mcg tablet 50 mcg PO DAILY simvastatin 40 MG tablet 40 mg PO DAILY diclofenac sodium 1 % gel 2 g topical QID Qty: 100 0RF omeprazole 20 mg capsule,delayed release(DR/EC) See Rx Instructions .ROUTE .COMPLEX Qty: 30 3RF Dose Instruction: TAKE ONE CAPSULE BY MOUTH EVERY DAY TAKE 2 HOURS AFTER A MEAL Rx Instructions: TAKE ONE CAPSULE BY MOUTH EVERY DAY TAKE 2 HOURS AFTER A MEAL Discontinued acetaminophen 500 mg tablet 1,000 mg PO BID PRN (Reason: pain) celecoxib 100 mg capsule 100 mg .ROUTE BID Qty: 60 1RF Rx Instructions: 100 mg twice a day; aspirin [Aspirin Low-Strength] 81 MG tablet,chewable 81 mg PO DAILY Discharge Instructions Additional Instructions: Total Hip Discharge Instructions Activity: The most important activity is to walk. You should try to take short walks a few times a day. You have no restrictions on movement or positioning, but do not try to force what you do. You will find some stiffness and weakness with hip flexion (lifting your knee). Do not try to strengthen this too early, continue to practice walking and stairs and this will come. - Outpatient physical therapy can be helpful to help return you to a normal gait and improve your flexibility and strength. This can start around 2 weeks. For some patients, it?s not necessary. Usually this is determined at the time of discharge or at the first post-operative visit. - You should wear the LOUIS hose on both legs for 2 weeks. Dressing: Keep the surgical dressing in place for at least one week. After the first week it may be removed and replace with light gauze and tape or nothing. It may get wet after 3 days but avoid soaking the dressing. If it gets wet, just lightly pat dry. It is important to always keep some gauze between skin folds, especially when you are sitting. Spend some time with the wound exposed when you are lying flat as the incision does wrinkle onto itself. Medications: - You should take Tylenol and an anti-inflammatory Celebrex as your primary pain control medications. If the Celebrex is too expensive or not covered, please call the office for another alternative (Advil/Ibuprofen or Naproxen/Aleve). - You have been prescribed a stronger pain medication Oxycodone for breakthrough pain, take as needed as prescribed. - You have will continue your omeprazole to help reduce stomach acid and reflux. - You have also been prescribed Decadron to help with post-operative nausea and pain. You will take this for two days starting tomorrow. - You will be taking Aspirin 81mg twice a day for DVT prevention unless instructed otherwise. - If you have constipation you should take Colace or Miralax (both over-the-co unter). It takes most people 3-4 days to have a bowel movement. Follow-up: 2 weeks If you have any acute concerns or questions, please do not hesitate to contact the office at [phone]. You may contact Dr. Tavares with any questions after hours through the hospital at [phone] or on his cell phone at [phone]. Stand Alone Forms: Anesthesia Discharge Inst., Shelia Lujan ([facility]) Referrals: Andre Tavares MD [ [facility] STAFF PHYSICIAN] - Equipment/Supplies: Walker Activity:: Activity as Tolerated Shower/Bathe:: 72 hours Diet:: As Tolerated Discharge Orders Discharge Orders: Discharge Order (Routine); Ordered 08/12/24 Ordered By: Ted Aguilar DS: Diagnosis Discharge Diagnosis (1) Arthritis of left hip: Status: Chronic
--- NOTE | 2024-08-12 10:40 | ANES.PREOP_ITS ---
General Info Date of Service Date Performed: 08/12/24 Height: 5 ft 2 in Weight: 107.6 kg Body Mass Index (BMI): 43.4 Surgical Procedure: Operation Date: 08/12/24 12:50 Proposed Procedure Side Surgeon p Hip Total Hip Anterior, ACTIS Left Andre Tavares MD Meds Allergies and Home Medications Allergies Allergy/AdvReac Type Severity Reaction Status Date / Time nickel (Nickel) Allergy Mild Skin Rash Verified 08/12/24 10:15 sulfamethoxazole (From AdvReac Unknown Nausea Verified 08/12/24 10:15 Bactrim) trimethoprim (From Bactrim) AdvReac Unknown Nausea Verified 08/12/24 10:15 aripiprazole AdvReac Dizziness/L Verified 08/12/24 10:15 ighthead bupropion (From Wellbutrin) AdvReac CONFUSION Verified 08/12/24 10:15 Home Medication ?Medication ?Instructions ?Recorded simvastatin 40 mg tablet 40 mg PO DAILY 03/26/16 levothyroxine 50 mcg tablet 50 mcg PO DAILY 02/04/20 Vitamin D2-Vitamin K1 See Rx Instructions PO DAILY 12/23/23 calcium 500 mg (as 1 tab PO DAILY 12/23/23 carbonate)-vitamin D3 10 mcg (400 unit) tablet rizatriptan 5 mg disintegrating 5 mg PO .COMPLEX PRN 12/23/23 tablet (Maxalt-SEARCH OPTIMIZATION ANALYST) hydrochlorothiazide 12.5 mg tablet 12.5 mg PO DAILY #90 tabs 12/25/23 diclofenac sodium 1 % topical gel 2 g topical QID #100 grams 01/21/24 gabapentin 300 mg capsule 300 mg PO BID #60 caps 04/08/24 ketoconazole 2 % topical cream 1 applic topical DAILY #120 grams 06/02/24 duloxetine 30 mg capsule,delayed See Rx Instructions PO BID #90 caps 06/26/24 release losartan 50 mg tablet (Cozaar) 50 mg PO DAILY #90 tab-caps 07/07/24 omeprazole 20 mg capsule,delayed See Rx Instructions .Route 07/30/24 release .COMPLEX #30 caps acetaminophen 500 mg tablet 1,000 mg (2 x 500 mg) PO TID #90 08/12/24 tabs aspirin 81 mg tablet,delayed 81 mg PO BID #60 tabs 08/12/24 release celecoxib 100 mg capsule mg 08/12/24 celecoxib 200 mg capsule 200 mg PO BID #60 caps 08/12/24 dexamethasone 4 mg tablet 4 mg PO DAILY #2 tabs 08/12/24 oxycodone 5 mg tablet 5 mg PO Q4H PRN pain #20 tabs 08/12/24 Current Visit Medications: Current Medications Generic Name Dose Route Start Last Admin Trade Name Freq PRN Reason Stop Dose Admin Acetaminophen 1,000 mg 08/12/24 06:00 Acetaminophen 500 Mg Tab PO 08/12/24 23:59 PREOP FELY Acetaminophen 1,000 mg 08/12/24 07:29 Acetaminophen 500 Mg Tab PO 09/11/24 07:28 TID PRN PRN Analgesia Celecoxib 400 mg 08/12/24 06:00 Celecoxib 200 Mg Cap PO 08/12/24 23:59 PREOP FELY Docusate Sodium 100 mg 08/12/24 07:29 Docusate Sodium 100 Mg Cap PO 09/11/24 07:28 BID PRN PRN Constipation Ringer's Solution 1,000 mls @ 80 mls/hr 08/12/24 06:00 IV 08/12/24 23:59 INFUSION FELY Cefazolin Sodium/Dextrose 2 gm in 50 mls @ 100 mls/hr 08/12/24 06:00 Ancef Duplex IVPB 08/12/24 23:59 PREOP FELY Tranexamic Acid/Sodium Chloride 1,000 mg in 100 mls @ 600 mls/hr 08/12/24 06:00 IVPB 08/12/24 23:59 PREOP FELY IV Miscellaneous Supplies 1 each 08/12/24 06:00 Iv Access IV 08/12/24 23:59 DIRECTED FELY Ondansetron HCl 4 mg 08/12/24 07:29 Ondansetron 4 Mg/2 Ml Vial IVP 09/11/24 07:28 Q6H PRN PRN Nausea Oxycodone HCl 0 mg 08/12/24 07:29 Oxycodone 5 Mg Tab PO 09/11/24 07:28 Q3H PRN PRN Pain Polyethylene Glycol 17 gm 08/12/24 07:29 Polyethylene Glycol 3350 17 Gm Packet PO 09/11/24 07:28 BID PRN PRN Constipation Sodium Chloride 0 ml 08/12/24 06:00 Normal Saline Flush 10 Ml Syr IV 08/12/24 23:59 PRN PRN Sodium Chloride 0 ml 08/12/24 06:00 Normal Saline 10 Ml Vial IJ 08/12/24 23:59 DIRECTED PRN Sterile Water 0 ml 08/12/24 06:00 Water,Injection,Sterile 10 Ml Vial IJ 08/12/24 23:59 DIRECTED PRN PFSH Active Problems Active Problems: Problem Status Onset Code Seasonal affective disorder Acute F33.8 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 Hip pain, right Acute M25.551 Nail dystrophy Acute L60.3 Onychomycosis Acute B35.1 Acid reflux Chronic K21.9 Thyroid nodule Acute E04.1 Arthritis of left knee Acute M17.12 Osteoarthritis of right hip Acute M16.11 Tubular adenoma Acute D36.9 Hip pain, bilateral Acute M25.551, M25.552 Pain in right foot Acute M79.671 Trigger thumb of left hand Acute M65.312 Pain in joint of left knee Acute M25.562 Pain in right wrist Acute M25.531 Pain, joint, knee, right Acute M25.561 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 Acute Z90.712 Screening for malignant neoplasm of breast Acute Z12.39 Presence of total knee joint prosthesis Acute Z96.659 Prediabetes Acute R73.03 Snoring Acute R06.83 Anesthesia of skin Acute R20.0 Low back pain Acute M54.50 Disorder of hip joint Acute M25.9 Ankylosis of joint Acute M24.60 Idiopathic osteoarthritis Acute M19.90 Steatosis of liver Acute K76.0 Intestinal obstruction Acute K56.609 Chronic sinusitis Acute J32.9 Essential hypertension Acute I10 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 Trigeminal neuralgia Acute G50.0 Migraine with aura Acute G43.109 Migraine Chronic G43.909 Obstructive sleep apnea syndrome Chronic G47.33 Recurrent major depression Acute F33.9 Mild major depression Acute F32.0 Hypopituitarism Acute E23.0 Hypothyroidism Chronic E03.9 Polyp of colon Acute K63.5 Onychomycosis due to dermatophyte Acute B35.1 Hypertension Chronic I10 Hyperlipemia Acute E78.5 Effusion, left knee Acute M25.462 Obesity, morbid, BMI 40.0-49.9 Chronic E66.01 Osteoarthritis of left knee Chronic M17.12 Painful total knee replacement, right Acute T84.84XA, Z96.651 Arthrofibrosis of total knee arthroplasty Acute T84.82XA Unilateral primary osteoarthritis, left knee Acute M17.12 Femoroacetabular impingement of both hips Acute M25.851, M25.852 Arthritis of left hip Chronic M16.12 Status post cataract extraction and insertion of intraocular lens of right eye Chronic 08/18/18 Z98.41, Z96.1 Diplopia Acute H53.2 Head ache Acute R51 Status post cataract extraction and insertion of intraocular lens of left eye Chronic 08/04/18 Z98.42, Z96.1 Medical History Medical History (Updated 08/12/24 @ 11:42 by Tammie Jones RN) Laryngitis Dyspnea Denies Acute pharyngitis Edema Localized edema Malaise Dizziness and giddiness Intractable pain Ambulatory dysfunction Inability to ambulate due to left knee Weakness Depression Obesity Blood glucose elevated Enlarged liver Tricuspid regurgitation History of colon cancer Cortical cataract of left eye Posterior subcapsular age-related cataract of left eye Nuclear sclerotic cataract of left eye Surgical History Surgical History (Updated 08/12/24 @ 11:42 by Tammie Jones RN) H/O total hysterectomy with bilateral salpingo-oophorectomy (BSO) Status post total right knee replacement followed by open synovectomy then revision Status post cataract extraction Bilateral Hx of colonoscopy History of hemicolectomy Tobacco Smoking/Tobacco Use Status: Former Tobacco Use Passive smoking exposure: No Second hand exposure: No Alcohol Alcohol Intake: current Alcohol intake frequency: holidays/special occasions only Substance Use Substance use: Rarely Substance use type: marijuana Vital Signs and Lab Results Vital Signs Most Recent Vital Signs in EMR: Most Recent Vital Signs Temp Pulse Resp BP Pulse Ox 36.6 C 88 16 136/76 95 08/12/24 10:22 08/12/24 10:22 08/12/24 10:22 08/12/24 10:22 08/12/24 10:22 Lab Results Blood Type / Crossmatch: No Data to Display Complete Blood Count: White Blood Count 7.22 10^3/uL (4.4-10.8) 07/21/24 15:30 Red Blood Count 4.68 10^6/uL (3.93-5.22) 07/21/24 15:30 Hemoglobin 13.6 g/dL (11.2-15.7) 07/21/24 15:30 Hematocrit 42.9 % (36.0-46.0) 07/21/24 15:30 Platelet Count 214 10^3/uL (130-400) 07/21/24 15:30 Complete Metabolic Panel: Sodium 145 mmol/L (136-145) 07/21/24 15:30 Potassium 4.3 mmol/L (3.5-5.1) 07/21/24 15:30 Chloride 105 mmol/L (98-107) 07/21/24 15:30 Carbon Dioxide 33.3 mmol/L (21.0-32.0) H 07/21/24 15:30 BUN 24 mg/dL (7-18) H 07/21/24 15:30 Creatinine 1.3 mg/dL (0.55-1.02) H 07/21/24 15:30 Est GFR (CKD-EPI 2020) 43.96 (mL/min/1.73m2) 07/21/24 15:30 Calcium 9.8 mg/dL (8.5-10.1) 07/21/24 15:30 Glucose 88 mg/dL (74-106) 07/21/24 15:30 Liver Function Panel: No Data to Display Coagulation Panel: No Data to Display Cardiac Panel: No Data to Display Arterial Blood Gas: No Data to Display Venous Blood Gas: No Data to Display Pancreas Panel: No Data to Display Thyroid Panel: No Data to Display Infectious Disease: No Data to Display Blood Cultures: No Data to Display Toxicology Panel: No Data to Display Imaging and Studies Imaging and Studies Study information below may be from another EMR and interpreted by another provider. Please see original notes in EMR for more complete details. EKG Summary: Conclusion Sinus rhythm...normal P axis, V-rate 60- 99 Abnormal T, consider ischemia, anterior leads...T <-0.20mV, V2-V4 Stress Test Summary: MPI Conclusion Myocardial perfusion is normal, no ischemia or infarction EF 57%, normal wall motion Echocardiogram Summary: Conclusion Normal left ventricular wall thickness and chamber size. Estimated ejection fraction is 60%. Wall motion is normal Normal right ventricular size and systolic function Both atria are normal in size There is no structural or hemodynamically significant valvular disease Estimated right ventricular systolic pressure is 26 mmHg Carotid Artery Summary:: IMPRESSION: No significant plaque. No evidence of internal carotid artery stenosis. Anesthesia Assessment and Plan Anesthesia History Personal History: No History of Anesthesia Complications Family History: No Family History of Anesthesia Complications Exercise Tolerance Exercise Tolerance: Metabolic Equivalents>4 Pertinent Negatives Pertinent Negatives: No Symptoms of GERD Cardiac & Pulmonary Exam Cardiac Exam: Normal S1/S2 Heart Sounds Pulmonary Exam: Clear Bilateral Breath Sounds Implantable Cardiac Device Does patient have a Pacemaker or an ICD?: No Airway Exam Known Difficult Airway: No Mallampati Class: 2 Mouth Opening: Normal (> 3cm) Thyromental Distance: Less than 3 cm Neck Range of Motion: Full ROM Neck Circumference: Normal Teeth Condition: Normal Dentition ASA Classification ASA Score: ASA 3 Emergency Case?: No NPO Status NPO Status: NPO Clears >2 hours, Solids >8 hours Anesthesia Plan Resuscitation Status: Full Code Anesthesia Technique: Spinal Anesthesia Airway Planned: Natural Airway Monitors Used: Standard Monitors
[2024-08-12] MEDS: Acetaminophen 500 MG TAB 1000 MG PO (11:03)
[2024-08-12] MEDS: Celecoxib 200 MG CAP 400 MG PO (11:03)
[2024-08-12] MEDS: Lactated Ringers 1,000 ML 80 ML IV (11:25)
[2024-08-12] MEDS: ceFAZolin 2 GM/50 ML BAG IVPB (12:19)
[2024-08-12] MEDS: TRANEXAMIC ACID/SOD. CHL. 1,000 MG/100 ML BAG 600 MG IVPB (12:28)
--- NOTE | 2024-08-12 13:55 | DI.RAD_ITS ---
Exam(s) XR HIP LT IN OR EXAM: XR HIP LT IN OR CLINICAL HISTORY: LEFT HIP OA. TECHNIQUE: 2D and realtime digital imaging was performed. COMPARISON: No exams were available for comparison FINDINGS: Hard copy images show placement of a left hip prosthesis. The alignment is satisfactory. Please see procedure note for details. Fluoro time: 39.6seconds RADIATION DOSE DELIVERED: Ka,r=6.59 mGy
[2024-08-12] MEDS: fentaNYL 100 MCG/2 ML VIAL IVP ×2 (14:45→14:56)
--- NOTE | 2024-08-12 15:30 | W.ANESPOSTOP ---
Postoperative Evaluation Date, Time and Location Date Performed: 08/12/24 Time Performed: 15:30 Patient Location: Day Surgery Unit Vital Signs Most Recent Imported Vital Signs: Most Recent Vital Signs Temp Pulse Resp BP Pulse Ox 36.2 C L 67 14 141/75 H 100 08/12/24 14:36 08/12/24 15:06 08/12/24 15:06 08/12/24 15:06 08/12/24 15:06 Pain Score Most Recent Pain Score: Most Recent Pain Score Pain Level 2 08/12/24 15:05 Assessment Mental Status: Awake (Alert & Oriented to Patient Baseline) Airway and Respiratory Function: Patent airway with normal (patient baseline) respiratory exam Cardiovascular Function: Hemodynamically Stable Hydration Status: Adequately Hydrated Nausea & Vomiting: No Nausea or Vomiting Pain: Pain is tolerable per patient Peripheral Nerve Block: Patient did not receive a nerve block
[2024-08-12] MEDS: oxyCODONE 5 MG TAB PO ×2 (15:57→21:35)
--- NOTE | 2024-08-12 16:25 | IN_ITS ---
PT Notes Visit Reasons: L THR Physical Therapy Day Surgery Initial Evaluation Date: 08/12/2024 Referring Doctor: CHAPINCITO Reyes PT Orders: PT CONSULT: S/P ortho Surgery Precautions: WBAT on the L LE with AD. Patient Profile/Admitting Diagnosis: Pari is a 73-year-old female with degenerative joint disease of the left hip and status post left total hip arthroplasty on postoperative day 0. PMHX: Medical History (Updated 07/21/24 @ 14:53 by Carolina Garrett) Laryngitis Dyspnea Denies Acute pharyngitis Edema Localized edema Malaise Dizziness and giddiness Intractable pain Ambulatory dysfunction Inability to ambulate due to left knee Weakness Depression Obesity Blood glucose elevated Enlarged liver Tricuspid regurgitation History of colon cancer Cortical cataract of left eye Posterior subcapsular age-related cataract of left eye Nuclear sclerotic cataract of left eye Surgical History (Updated 07/21/24 @ 14:52 by Carolina Garrett) H/O total hysterectomy with bilateral salpingo-oophorectomy (BSO) Status post total right knee replacement followed by open synovectomy then revision Status post cataract extraction BilateralHx of colonoscopy History of hemicolectomy Social History/Home Situation: Lives alone in a private home with a ramp to enter. Equipment Owned/DME: FWW Subjective: Complained of pain with sit<.stand movement transition. Tearful after walking about 50 feet with walker. Reported lightheadedness at end of walk. Objective: General Observation: Mepilex Ag over surgical incision. TEDS to B legs/feet. Mental Status: A and O x 4 Pain: As above ROM: Right Lower Extremity: Hip flexion WFL. Hip abduction WFL. Knee flexion WFL. Ankle dorsiflexion WFL. Ankle plantarflexion WFL. Left Lower Extremity: Hip flexion unbale to lift beyond 90 degrees. Hip abduction WFL. Knee flexion 30 degrees to 90 degrees. Knee extension -30 degrees due to pain.Ankle dorsiflexion WFL. Ankle plantarflexion WFL. Strength: Right Lower Extremity: Hip flexors 5/5. Hip abductors 5/5. Knee flexors 5/5. Knee extensors 5/5. Ankle dorsiflexors 5/5. Ankle plantarflexors 5/5. Left Lower Extremity:Hip flexors 3-/5. Hip abductors 4-/5. Knee flexors 3-/5. Knee extensors 3-/5. Ankle dorsiflexors 5/5. Ankle plantarflexors 5/5. Sensation: Intact as to pain and light pressure in B LE Bed Mobility/Transfers: Moderate cueing provided for use of B hands as needed for support, movement sequence, AD management, and posture to reduce fall risk and minimize pain report Sit to stand stand by assist with FWW Stand to sit minimal assist of 2 with FWW Gait: Was able to negotiate about 50 feet with contact guard assist from PT but needed to stop due to worsening pain level, lightheadedness, and increased apprehension to the point of patient getting too tearful. Fruther mobility performance was deferred and patient was brought back into room. Nurse Holliday took VS with BP much increased from pre-treatment level. Patient's [id number] expressed concerns of not being able to manage at home safely with just her helping the patient over the ramp and intt the house. Balance: Static Sitting: Good Dynamic Sitting: Fair Static Standing: Fair Dynamic Standing: Poor Special Tests: Mobility Limitations Standardized Measure [facility] AM-PAC 6 clicks Basic Mobility Inpatient Short Form: Raw Score: 19 CMS Score: 42% deficit. Informed Consent/Education: Patient instructed in purpose of PT consult. Advised patient and patient's family member about the possibility of an overnight stay to allow for more time for her pain level to stabilize some more to increase safety of mobility ADL performance while minimizing fall risk. Assessment: Patient was in significant pain with supine<>sit and sit<>stand as well as with weight bearing despite recent intake of pain medication. Gait was antalgic and patient ended up tearful because of pain level and increasing apprehension. Further mobility assessment was deferred for safety reasons as patient was reporting increasing lightheadedness. Nurse oHlliday, patient and patient's caregiver were advised about the possibility of overnight admission for continued observation/monitoring and pain management. Patient presents with clinical signs and symptoms consistent with current/admitting diagnoses that have resulted to mobility limitations, gait instability, generalized weakness, and impairment of motor control as demonstrated by the following impairment level findings: 1. Decreased strength to left hip major muscle groups 2. Impaired standing balance 3. Limitation of joint range of motion in left hip 4. High pain level 5. Lightheadedness Impairments are contributing to the following functional limitations: 1. Inability to safely ambulate without assistive device--antalgic gait 2. Increase completion time for mobility ADL performance 3. Increased fall risk Patient is assessed as a 35321 moderate complexity based on the following: History: 73-year-old female with impairment level findings, functional limitations, and past medical history as indicated above Examination: Demonstrable impairment in strength, balance, and mobility level with underlying impairments and functional limitations as documented above Presentation: Evolving Decision Makin moderate complexity Goals: Goals X 3 days 1. Supine-Sit independent 2. Sit-Supine independent 3. Sit-Stand independent 4. Stand-Sit independent with FWW 5. Bed-Chair independent with FWW 6. Chair-Bed independent with FWW 7. Independent gait on level surface with use of FWW for at least 150 feet without report of pain nor dyspnea 8. Independent stair negotiation while holding onto bilateral rails for at least 10 steps without report of pain nor dyspnea 9. Independent with home exercise program 10. Good static and dynamic standing balance/tolerance Plan of Care/Treatment Plan: Patient is staying overnight to work on improved functional mobility status and safer movement transitions using the front-wheeeld walker. Will attempt to see patient 1-2x tomorrow to: 1) Educate and train on safe level surface ambulation with stand by assist using her FWW without undue pain on the L hip to reduce fall risk 2) Facilitate safe movement transitions supine<>sit and sit<>stand with pain level < or = to 3/10 3) Educate and train on safe performance of HEP to allow for joint flexibility and pain relief while performing mobility tasks 4) Assess fr need for assistive devices e.g. eg production corrugator and lead former to allow for increseased independence at home DISCHARGE RECOMMENDATIONS: Home with HH PT vs no services based on how she will do on day of discharge TREATMENT CODE/TIME: 90515 x 22 minutes for 1 unit (16:25-16:27). Thank you for the opportunity to participate in the care of this patient. Alexandra Moore PT, DPT, CLT [facility] [place], [place]
[2024-08-12] MEDS: Ketorolac 30 MG/ML VIAL 15 MG IVP (17:46)
--- NOTE | 2024-08-12 18:17 | W.PC.ACHO ---
Registration Status: Primary Language: Preferred Language: Medical / Surgical History (Last Reviewed 08/12/24 @ 10:37 by Vane Sun) Laryngitis Dyspnea Acute pharyngitis Edema Localized edema Malaise Dizziness and giddiness Intractable pain Ambulatory dysfunction Inability to ambulate due to left knee Weakness Depression Obesity Blood glucose elevated Enlarged liver Tricuspid regurgitation History of colon cancer Cortical cataract of left eye Posterior subcapsular age-related cataract of left eye Nuclear sclerotic cataract of left eye (Last Reviewed 08/12/24 @ 10:37 by Vane Sun) H/O total hysterectomy with bilateral salpingo-oophorectomy (BSO) Status post total right knee replacement Status post cataract extraction Hx of colonoscopy History of hemicolectomy Most Recent Vital Signs Temperature 36.4 C L 08/12/24 17:50 Temperature Source Temporal Artery Scan 08/12/24 17:45 Pulse 96 H 08/12/24 17:50 Pulse Rhythm Regular 08/12/24 17:50 Pulse 66 08/12/24 15:06 Respiratory Rate 16 08/12/24 17:50 Respiratory Effort Normal 08/12/24 17:50 Respiratory Depth Normal 08/12/24 17:50 Respiratory Pattern Normal 08/12/24 17:50 Blood Pressure 127/80 08/12/24 17:50 Blood Pressure Mean 96 08/12/24 15:06 Pulse Oximetry 95 08/12/24 17:50 Respiratory End-tidal CO2 32 08/12/24 15:06 Oxygen Delivery Method Room Air 08/12/24 17:50 Oxygen Flow Rate 0 08/12/24 17:50 Pain Level 7 08/12/24 17:50 Allergies nickel (Nickel) Allergy (Mild, Verified 08/12/24 10:15) Skin Rash rash sulfamethoxazole (From Bactrim) Adverse Reaction (Unknown, Verified 08/12/24 10:15) Nausea Chest pain trimethoprim (From Bactrim) Adverse Reaction (Unknown, Verified 08/12/24 10:15) Nausea aripiprazole Adverse Reaction (Verified 08/12/24 10:15) Dizziness/Lighthead visual disturbances, unable to phone bupropion (From Wellbutrin) Adverse Reaction (Verified 08/12/24 10:15) CONFUSION Shaking internally, blurry vision, crying Active Medications Generic Name Dose Route Start Last Admin Trade Name Freq PRN Reason Stop Dose Admin Acetaminophen 1,000 mg 08/12/24 06:00 08/12/24 11:03 Acetaminophen 500 Mg Tab PO 08/12/24 23:59 1,000 mg PREOP FELY Administration Celecoxib 400 mg 08/12/24 06:00 08/12/24 11:03 Celecoxib 200 Mg Cap PO 08/12/24 23:59 400 mg PREOP FELY Administration Ringer's Solution 1,000 mls @ 80 mls/hr 08/12/24 06:00 08/12/24 15:09 IV 08/12/24 23:59 80 mls/hr INFUSION FELY Infusion Cefazolin Sodium/Dextrose 2 gm in 50 mls @ 100 mls/hr 08/12/24 06:00 08/12/24 12:28 Ancef Duplex IVPB 08/12/24 23:59 Infused PREOP FELY Infusion Tranexamic Acid/Sodium Chloride 1,000 mg in 100 mls @ 600 mls/hr 08/12/24 06:00 08/12/24 12:38 IVPB 08/12/24 23:59 Infused PREOP FELY Infusion Ketorolac Tromethamine 15 mg 08/12/24 16:48 08/12/24 17:46 Ketorolac 30 Mg/Ml Vial IVP 08/17/24 16:47 15 mg Q8H PRN PRN Administration Oxycodone HCl 0 mg 08/12/24 07:29 08/12/24 15:57 Oxycodone 5 Mg Tab PO 09/11/24 07:28 5 mg Q3H PRN PRN Administration Pain IV IV Catheter Type [Right Hand] Saline Lock IV Catheter Gauge [Right Hand] 20 Diet Orders Category Date Time Status Regular/Normal [DIET] Nutrition 08/12/24 Lunch Active Intake and Output - 24 Hour Total 07/06/24 09:48 thru 08/12/24 18:11 Intake Total 1000 Output Total 0 Balance 1000 Weight 107.6 kg Intake: IV 800 Oral 200 Output: Emesis 0 Other: Urine Color Yellow Urine Appearance Clear Urine Odor Normal Emesis Description None Falls Risk Assessment History of Falls No History 08/12/24 17:50 Contributing Factors No Factors 08/12/24 17:50 Ambulatory Aids Independent 08/12/24 17:50 Tubes/Lines W/no contributing factors 08/12/24 17:50 Gait Evaluation No gait disturbance 08/12/24 17:50 Fall Total Score 10 08/12/24 17:50 Level of Risk Standard/Low Risk 08/12/24 17:50 v v v v v v v v v Sending and/or Receiving Nurses: Please use comment section below to note any information pertinent to the patient hand-off not included above. Information / Comments: KF in PACU @ [id number] Report received from:
--- NOTE | 2024-08-12 21:25 | ROE_ITS ---
Operative Note Operative Note PRE-OP DIAGNOSIS: Left Hip Osteoarthritis POST-OP DIAGNOSIS: same PROCEDURE: Left Anterior Total Hip Arthroplasty with Intraoperative Navigation SURGEON: Andre Tavares BRICK YARD HAND: Ted Aguilar ANESTHESIA TYPE: Spinal Refer to Anesthesia Record ESTIMATED BLOOD LOSS: 200 PATHOLOGY: none sent TOURNIQUET TIME: 0 COMPLICATIONS: None Patient was transported to: PACU Patient's condition: stable Implants: 1. Depuy [place] Acetabular Component, 48mm 2. Depuy Acetabular Liner, [id number] 3. Depuy Actis Standard Collared Femoral Stem, Size 3 4. Depuy Altrx Ceramic Femoral Head, Size 32+5mm Indications: I have seen Pari in clinic for symptoms of hip arthritis, confirmed with radiographic findings. Chet has exhausted nonoperative methods and was having significant limitations in daily function and desired better function and less pain. I discussed the technical details of a hip replacement. I explained the risks of the procedure to include, but not limited to, bleeding, infection, pain, stiffness, fracture, damage to nerves and vessels, damage to muscles and tendons, loosening, instability, leg length inequality, need for repeat procedure, blood clot and cardiopulmonary demise. Despite these risks, she elected to proceed. Findings: There was significant signs of arthritis throughout the hip. Procedure Description: Pari was greeted in the preoperative holding area where the correct side was identified and marked. The consent was reviewed with the patient and signed. The history and physical was updated. All questions were answered. Se was taken back to the operating room. A spinal anesthestic was then administered. The feet were wrapped with cast padding and Coban and then placed into the boot liners and then into the boots. Care was taken to protect the ski n and make sure the heels were fully down and the boots were stable. The patient was then positioned onto the HANA table. Both legs were held in a neutral position. SCDs were applied. The patient was then slid down onto a peroneal post. Prophylactic antibiotics in the form of Cefazolin were administered. 1g of Tranxemic Acid was given intravenously within 30 minutes of incision. The left leg was then prepped with Chloraprep and draped in a standard fashion. A second prep with Chloraprep was performed prior to placement of a shower-curtain type drape with Iodine impregnated skin prote ction. A timeout to confirm correct identity, side and site, procedure, allergies, anesthesia, and medical concerns was performed. An obliquely oriented incision was made starting lateral to the ASIS and running distal over the Tensor Fascia Sofía (TFL) muscle belly toward the fibular head, approximately 10cm. The skin and soft tissue was dissected sharply, through Denys?s fascia, and to the fascia of the TFL. With the fascia and superior border of the IT band identified, the fascia was incised with a new knife just above any perforators from the IT band. The TFL muscle belly was bluntly dissected away from the fascia and moved laterally. The fat between TFL and rectus was identified to ensure the dissection was not within the TFL. Blunt dissection created space between abductors and the capsule and retractor was placed over the lateral femoral neck. The fibers of the rectus femoris tendon were identified and these were freed from the anterior capsule. A second cobra retractor was placed around the medial femoral neck. The TFL was further retracted laterally to show the deep fascia. Careful dissection through this layer identified three main crossing vessels of the lateral femoral circumflex. These were cauterized in multiple locations and then cut without any noticeable bleeding. The TFL was further released bluntly from the deep fascia to expose anterior hip capsule and fat The soft tissue orthopaedic retractor was then placed beneath the TFL and against sartorius and medial soft tissues to protect and retract the soft tissues. A T-capsulotomy was then performed starting at the superior lateral acetabulum and moving distally to the intertrochanteric ridge. These capsular flaps were tagged with a No. 1 Vicryl and elevated from within. The capsular flaps were released to the shoulder of the lateral neck and to the lesser trochanter to give excellent visualization of the proximal femur. A neck osteotomy was performed using an oscillating saw based on preoperative templates. This cut started in the shoulder and of the lateral neck and exited medially. The saw was at all times directed medially to avoid injury to the greater trochanter. Gross traction was applied to the leg and the osteotomy opened. The femoral head was removed with a corkscrew, making sure to protect the TFL on its exit. Traction was released after head removal. This was measured on the back table to determine the starting reamer size. Portions of the rectus obscuring visualization were minimally elevated off the superior acetabulum. An anterior retractor was placed over the anterior wall between capsule and labrum and attached to the Gripper retraction system. The femur was rotated to 90 degrees and medial capsule was fully released until the lesser trochanter was palpable and visible; the femur was returned to 30 degrees. A posterior retractor was placed similarly between capsule and labrum. This provided excellent visualization. The contents of the cotyloid fossa were removed with electrocautery and the labrum was removed with a knife. There was a notable floor osteophyte. There was significant chondromalacia of the superior acetabulum. Acetabular reaming began with a 44mm reamer. This first reaming was directed anterior to posterior and medial to get down to the true floor. This was inspected and reamed until the true floor was reached. The anterior retractor was then released and entry and exit was provided by traction on the capsular flaps. I then reamed sequentially up to a 48mm reamer where good fit was obtained. The larger reamers were oriented based on anatomical reference of the anterior and lateral de la o to ensure proper abduction and anteversion. Positioning and size was confirmed with the fluoroscopy. A 48mm Depuy [place] acetabular component was selected. The acetabulum was reamed around the periphery with the selected acetabular size to prevent a rim fit. The deep tissues were irrigated. The acetabular component was then impacted in a position of about 40-45 degrees of abduction and 15-20 degrees of anteversion, using the patient?s anatomy as the ultimate landmark. Fluoroscopy was used to confirm this. There was excellent personnel arbitrator of the acetabular component and the inserting handle was removed. The acetabular liner, Depuy [id number] polyethylene liner, was inserted and lined up with the tines of the acetabular component. There was no soft tissue interposition. The liner was then impacted into position and confirmed to be well-seated. A portion of the pattie-articular cocktail was then injected around the acetabulum into the capsule and periosteum. This cocktail consisted of 123mg of Ropivacaine, 0.25mg of Epinephrine, 0.04mg of Clonidine, and 15mg of Ketorolac, diluted to 50cc. The leg was rotated to 120 degrees. Any remaining medial capsule was released until the lesser trochanter was easily palpable. A retractor was placed medially. The lateral capsule was further released into the shoulder to allow access to the greater trochanter. A Garibay retractor was placed over the greater trochanter which allowed the trochanter to flip in front of the capsule for excellent exposure. The leg was brought down into maximal extension and 20 degrees of adduction while ensuring there was no impingement on the acetabulum. Any remnant capsule within the trochanter was released. Piriformis and obturator externis were identified and protected. There was excellent access to the proximal femur. The lateral neck remnant was removed with a rongeur. A blunt canal probe was used to identify the canal and trajectory for later broaching. A box osteotome initiated the broach course. A small curved rasp and a curved curette were used to work laterally. Broaching then began with a starter Actis broach. This was inserted manually around the trochanter and into the canal before mallet blows. The broach was seated to a few millimeters below the cut level based on the neck cut and the preoperative template. Sequential broaching was continued with the PresenceID pneumatic broaching device until a tight fit was obtained with good rotational control of the femur. A trial sta ndard neck was inserted along with a +1 trial head. The leg was brought out of extension and adduction and then reduced with traction and internal rotation. The leg was stable anteriorly in a position of 30 degrees of extension and 90 degrees of external rotation. Fluoroscopy was used to ensure there was no fracture and the stem was seated well. Leg lengths were checked with an AP pelvis and pelvic reference points. [employer] navigation system was used to confirm appropriate positioning and leg length and offset. Once content with the desired offset and leg lengths, the leg was brought back into extension, external rotation and adduction. The periosteum and surrounding tissue was injected with remaining portion of the pattie-articular cocktail. The proximal femur was irrigated as well as the deep tissues. The [place] [employer] Actis standard collared stem, size 3, was then manually inserted into the proximal femur making sure to control rotation. It was then malleted into position with light blows, giving breaks to allow bone expansion and decrease risk of fracture. The selected Depuy Altrx Ceramic Head, size 32+5mm, was then placed onto the clean and dry trunnion and secured with impaction onto the tapered fit. The leg was brought back out of extension and adduction and reduced with traction and internal rotation. Stability was confirmed with no shuck at 90 degrees of external rotation and 30 degrees of extension. No impingement through range of motion arc. Final x-ray images were obtained with fluoroscopy to confirm adequate positioning and no intraoperative fracture. The deep tissues were thoroughly irrigated with Surgiphor, betadine solution. This was allowed to sit in the wound for 3 minutes before being thoroughly irrigated out with normal saline. The capsule was then reapproximated with the previously placed sutures. The TFL fascia was finally closed with a No. 2 Stratafix, barbed suture. Deep tissues were then reapproximated with 0 Vicryl and a running 2-0 Vicryl. The skin was closed with a running 4-0 Monocryl in a subcuticular fashion. This was reinforced with skin glue. A Mepilex silver dressing was applied. At the end of the case, all counts were correct. Pari was transferred to the hospital bed without difficulty and suffering no apparent complication. Pari has a good prognosis. Physical therapy will start today and without restrictions, weight-bearing as tolerated. Aspirin 81mg BID will be used for DVT prophylaxis. Date of Procedure: 08/12/24
[2024-08-12] MEDS: Normal Saline Flush 10 ML SYR IV ×2 (21:34→22:41)
[2024-08-12] MEDS: DULoxetine 30 MG CAP PO (21:35)
[2024-08-12] MEDS: Gabapentin 300 MG CAP PO (21:35)
[2024-08-12] MEDS: HYDROmorphone 2 MG/ML VIAL 0.5 MG IVP (22:41)
[2024-08-13] MEDS: HYDROmorphone 2 MG/ML VIAL 0.5 MG IVP (03:25)
[2024-08-13 05:04] VITALS: BP 135/73; PULSE 99; RESP 20; TEMP 36.3; O2SAT 95
[2024-08-13] MEDS: Acetaminophen 500 MG TAB 1000 MG PO (06:35)
[2024-08-13] MEDS: Levothyroxine 50 MCG TAB PO (06:35)
[2024-08-13 07:39] VITALS: BP 106/65; PULSE 90; RESP 20; TEMP 37.2; O2SAT 96
[2024-08-13] MEDS: Omeprazole 20 MG CAPCR PO (07:54)
[2024-08-13] MEDS: Gabapentin 300 MG CAP PO (07:54)
[2024-08-13] MEDS: Simvastatin 40 MG TAB PO (07:54)
[2024-08-13] MEDS: Losartan 50 MG TAB PO (07:54)
[2024-08-13] MEDS: DULoxetine 30 MG CAP 60 MG PO (07:54)
[2024-08-13] MEDS: hydroCHLOROthiazide 12.5 MG TAB PO (07:54)
--- NOTE | 2024-08-13 08:24 | PTTR_ITS ---
PT Notes Visit Reasons: L THR Physical Therapy Day Surgery Initial Evaluation Date: 08/14/2024 Precautions: WBAT on the L LE with AD. Subjective: Feels a lot better this morning. Denied headache, chest pain, and lightheadedness thrughout. Much more confident about moving. happy to have received a leg iifter as she dreads getting into the car at discharge later. Complained of 3/10 in the L hip and thigh at rest and with movement. Per Nurse Matson, patient galindo been given Tylenol early this morning. Objective: General Observation: Mepilex Ag over surgical incision. TEDS to B legs/feet. Mental Status: A and O x 4 Pain: As above Bed Mobility/Transfers: Moderate cueing provided for use of B hands as needed for support, movement sequence, AD management, and posture to reduce fall risk and minimize pain report Sit to stand stand by assist with FWW Stand to sit stand by assist with FWW Gait: Was able to negotiate about 500 feet with stand by assist from PT using her front-wheeled walker with minimal verbal cueing given for safer and more efficient use of FWW, limb movement sequence, and adequte weight distribution to minimize pain and reduce fall risk. Stairs: NT. Patient has a ramp to enter. Balance: Static Sitting: Good Dynamic Sitting: Good Static Standing: Fair Dynamic Standing: Poor Assessment: Much improved pain tolerance which has contributed to increased confidence with and safety of mobility ADL performance. Patient goes home with a FWW and a leg clip loading machine adjuster should pain level change and supine<>sit becomes challenging to perform. Plan of Care/Treatment Plan: Patient is staying overnight to work on improved functional mobility status and safer movement transitions using the front-wheeeld walker. Will attempt to see patient 1-2x tomorrow to: 1) Educate and train on safe level surface ambulation with stand by assist using her FWW without undue pain on the L hip to reduce fall risk MET 2) Facilitate safe movement transitions supine<>sit and sit<>stand with pain level < or = to 3/10 MET 3) Educate and train on safe performance of HEP to allow for joint flexibility and pain relief while performing mobility tasks MET 4) Assess fr need for assistive devices e.g. eg clip loading machine adjuster and training consultant to allow for increseased independence at home MET DISCHARGE RECOMMENDATIONS: Home with HH PT vs no services based on how she will do on day of discharge TREATMENT CODE/TIME: 86188 x 25 minutes for 2 units (08:24-08:59).
--- NOTE | 2024-08-13 09:58 | DSE_ITS ---
Date of service: 08/13/24 Time of Service: 07:25 DS: Diagnosis Discharge Diagnosis (1) Arthritis of left hip: Status: Resolved Discharge Plan Disposition Patient Disposition: Home Condition: Good Discharge Details Reason For Visit: L THR Admit Date/Time: 08/12/24 17:38 Admit Provider: Andre Tavares Attending Provider: Andre Tavares Primary Care Provider: Mary [facility] Hospital Course Hospital Course: Patient was admitted to the medical/surgical floor following the procedure. The surgery was tolerated well without any notable medical, surgical, or anesthetic complications. Mobilization began postoperatively. She was voiding spontaneously. Vitals were stable. Physical therapy worked with the patient and was cleared for discharge home. No acute medical issues. Pain was controlled on oral regimen. 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 Max daily dose = 2 PRN; Vitamin D2-Vitamin K1 See Rx Instructions PO DAILY Rx Instructions: Take one orally daily; hydrochlorothiazide 12.5 mg tablet 12.5 mg PO DAILY Qty: 90 3RF gabapentin 300 mg capsule 300 mg PO BID Qty: 60 3RF losartan [Cozaar] 50 mg tablet 50 mg PO DAILY Qty: 90 3RF ketoconazole 2 % cream 1 applic topical DAILY Qty: 120 6RF Rx Instructions: Apply to toenails once daily duloxetine 30 mg capsule,delayed release(DR/EC) See Rx Instructions PO BID Qty: 90 3RF Patient Comments: 30 mg this AM Rx Instructions: Take 2 capsule PO QAM, and take 1 capsule PO QHS levothyroxine 50 mcg tablet 50 mcg PO DAILY simvastatin 40 MG tablet 40 mg PO DAILY diclofenac sodium 1 % gel 2 g topical QID Qty: 100 0RF omeprazole 20 mg capsule,delayed release(DR/EC) See Rx Instructions .ROUTE .COMPLEX Qty: 30 3RF Dose Instruction: TAKE ONE CAPSULE BY MOUTH EVERY DAY TAKE 2 HOURS AFTER A MEAL Rx Instructions: TAKE ONE CAPSULE BY MOUTH EVERY DAY TAKE 2 HOURS AFTER A MEAL Discontinued acetaminophen 500 mg tablet 1,000 mg PO BID PRN (Reason: pain) celecoxib 100 mg capsule 100 mg .ROUTE BID Qty: 60 1RF Rx Instructions: 100 mg twice a day; aspirin [Aspirin Low-Strength] 81 MG tablet,chewable 81 mg PO DAILY No Action celecoxib 100 mg capsule Patient Comments: TAKE ONE CAPSULE BY MOUTH TWICE A DAY Discharge Instructions Additional Instructions: Total Hip Discharge Instructions Activity: The most important activity is to walk. You should try to take short walks a few times a day. You have no restrictions on movement or positioning, but do not try to force what you do. You will find some stiffness and weakness with hip flexion (lifting your knee). Do not try to strengthen this too early, continue to practice walking and stairs and this will come. - Outpatient physical therapy can be helpful to help return you to a normal gait and improve your flexibility and strength. This can start around 2 weeks. For some patients, it?s not necessary. Usually this is determined at the time of discharge or at the first post-operative visit. - You should wear the LOUIS hose on both legs for 2 weeks. Dressing: Keep the surgical dressing in place for at least one week. After the first week it may be removed and replace with light gauze and tape or nothing. It may get wet after 3 days but avoid soaking the dressing. If it gets wet, just lightly pat dry. It is important to always keep some gauze between skin folds, especially when you are sitting. Spend some time with the wound exposed when you are lying flat as the incision does wrinkle onto itself. Medications: - You should take Tylenol and an anti-inflammatory Celebrex as your primary pain control medications. If the Celebrex is too expensive or not covered, please call the office for another alternative (Advil/Ibuprofen or Naproxen/Aleve). - You have been prescribed a stronger pain medication Oxycodone for breakthrough pain, take as needed as prescribed. - You have will continue your omeprazole to help reduce stomach acid and reflux. - You have also been prescribed Decadron to help with post-operative nausea and pain. You will take this for two days starting tomorrow. - You will be taking Aspirin 81mg twice a day for DVT prevention unless instructed otherwise. - If you have constipation you should take Colace or Miralax (both [id number]). It takes most people 3-4 days to have a bowel movement. Follow-up: 2 weeks If you have any acute concerns or questions, please do not hesitate to contact the office at [phone]. You may contact Dr. Tavares with any questions after hours through the hospital at [phone] or on his cell phone at [phone]. Stand Alone Forms: Anesthesia Discharge Inst., Shelia Lujan ([facility]), Nursing Discharge Form Referrals: Andre Tavares MD [ [facility] STAFF PHYSICIAN] - 08/27/24 3:00 pm Activity:: Activity as Tolerated Equipment/Supplies:: Walker Diet:: As Tolerated Discharge Orders Discharge Orders: Discharge Order (Routine); Ordered 08/13/24 Ordered By: Andre Tavares Discharge Data Discharge Date/Time-TO BE ENTERED AT DEPARTURE: 08/13/24 10:58 DS: Summary Time Spent with Patient providing and/or coordinating discharge services: Less than 30 minutes Status at Discharge Functional status at discharge: uses cane/walker Overall status at discharge: patient is progressing back to baseline Mental Status: mental status grossly normal Speech and Movement: speech and movement normal Mood: congruent mood Affect: normal affect Quality:SDOH Health Related Social Needs: Health related social needs education (Z55.6) Exam Narrative Exam Narrative: Sitting up in the chair No acute distress. Alert orient x 3. Left lower extremity shows some mild bruising around the hip incision/dressing. Dressings clean dry and intact. No significant pain with hip internal and external rotation or passive flexion. Sensation intact to light touch over the femoral and lateral from cutaneous nerves. Psych Mental Status: mental status grossly normal Speech and Movement: speech and movement normal Mood: congruent mood Affect: normal affect DS: Data Vitals/I&O Vitals and I&O: Vital Signs Temperature 37.2 C 08/13/24 07:39 Temperature Source Temporal Artery Scan 08/13/24 07:39 Pulse 90 08/13/24 07:39 Pulse Rhythm Regular 08/12/24 17:50 Pulse 66 08/12/24 15:06 Respiratory Rate 20 08/13/24 07:39 Respiratory Effort Normal 08/12/24 17:50 Respiratory Depth Normal 08/12/24 17:50 Respiratory Pattern Normal 08/12/24 17:50 Blood Pressure 106/65 08/13/24 07:39 Blood Pressure Mean 96 08/12/24 15:06 Pulse Oximetry 96 08/13/24 07:39 Respiratory End-tidal CO2 32 08/12/24 15:06 Oxygen Delivery Method Room Air 08/13/24 07:39 Oxygen Flow Rate 0 08/13/24 07:39 Pain Level 6 08/13/24 07:35 Intake & Output 08/12/24 08/12/24 08/13/24 11:59 23:59 11:59 Intake Total 1360 / 1360 840 / 840 Output Total 100 / 200 100 / 200 Balance -100 / 1160 1260 / 1160 840 / 840 Weight 107.6 kg 107.6 kg Intake: IV 1160 / 1160 Oral 200 / 200 840 / 840 Output: Urine 100 / 200 100 / 200 Emesis 0 / 0 Other: Urine Color Yellow Yellow Urine Appearance Clear Clear Urine Odor None Normal Comment unmeasurable, void in commode Emesis Description None Data Completed and Pending Completed studies during hospitalization [Text1]: X-ray of the left femur was performed postoperatively and showed a well- positioned hip replacement reduced without signs of complication. PFSH All Active Problems History of total left hip arthroplasty (Acute 08/12/24) Seasonal affective disorder (Acute) Intercostal neuralgia (Acute) left sided anterior pain reproducible on exam, nonexertional Hip pain, right (Acute) Nail dystrophy (Acute) Onychomycosis (Acute) Acid reflux (Chronic) Thyroid nodule (Acute) Arthritis of left knee (Acute) Osteoarthritis of right hip (Acute) POCUS INJECTION 04/02/24 Tubular adenoma (Acute) Hip pain, bilateral (Acute) Pain in right foot (Acute) Trigger thumb of left hand (Acute) Pain in joint of left knee (Acute) Pain in right wrist (Acute) Pain, joint, knee, right (Acute) 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 (Acute) Screening for malignant neoplasm of breast (Acute) Presence of total knee joint prosthesis (Acute) Prediabetes (Acute) Snoring (Acute) Anesthesia of skin (Acute) Low back pain (Acute) Disorder of hip joint (Acute) Ankylosis of joint (Acute) Idiopathic osteoarthritis (Acute) Steatosis of liver (Acute) Intestinal obstruction (Acute) Chronic sinusitis (Acute) Essential hypertension (Acute) Rheumatic tricuspid valve regurgitation (Acute) Trigeminal neuralgia (Acute) Migraine with aura (Acute) Migraine (Chronic) Obstructive sleep apnea syndrome (Chronic) Recurrent major depression (Acute) Mild major depression (Acute) Hypopituitarism (Acute) Hypothyroidism (Chronic) Polyp of colon (Acute) Onychomycosis due to dermatophyte (Acute) Hypertension (Chronic) Hyperlipemia (Acute) Effusion, left knee (Acute) Obesity, morbid, BMI 40.0-49.9 (Chronic) Osteoarthritis of left knee (Chronic) DEPO INJECTION: 05/16/21 Painful total knee replacement, right (Acute) Arthrofibrosis of total knee arthroplasty (Acute) Unilateral primary osteoarthritis, left knee (Acute) Depo-Medrol injection: 11/03/2020, 05/12/2020 Femoroacetabular impingement of both hips (Acute) Status post cataract extraction and insertion of intraocular lens of right eye (Chronic 08/18/18) Diplopia (Acute) Head ache (Acute) Status post cataract extraction and insertion of intraocular lens of left eye (Chronic 08/04/18) Medical History Laryngitis Dyspnea Denies Acute pharyngitis Edema Localized edema Malaise Dizziness and giddiness Intractable pain Ambulatory dysfunction Inability to ambulate due to left knee Weakness Depression Obesity Blood glucose elevated Enlarged liver Tricuspid regurgitation History of colon cancer Cortical cataract of left eye Posterior subcapsular age-related cataract of left eye Nuclear sclerotic cataract of left eye Surgical History H/O total hysterectomy with bilateral salpingo-oophorectomy (BSO) Status post total right knee replacement followed by open synovectomy then revision Status post cataract extraction Bilateral Hx of colonoscopy History of hemicolectomy Family History Maternal Grandfather Alcohol use disorder Maternal Aunt Cancer Maternal Uncle Lung cancer Mother Hypertension Heart disease Diabetes Dementia Father Brain tumor Brother Hypertension Son Stroke Maternal Grandmother , from old age Dementia Paternal Grandfather , - horse accident No problems noted. Social History Smoking/Tobacco Use Status: Former Tobacco Use Quit Date: 05/27/04 Second Hand Exposure: No Smoking risk assessment performed?: Yes Alcohol Intake: current Alcohol Intake frequency: holidays/special occasions only Drug use: Rarely Substance use type: marijuana Details: alcohol: unknown. Marijuana: 2-3 years Adopted: No Caregiver/Support person: No Foster care: No Household members: none Housing: apartment Number of Children: 1 number of grandchildren: 3 Communication Needs: None Education Level: college Details: associates degree Do you need help understanding health information?: Never current occupation: retired Pets and animals: No Do you think of yourself as: straight/heterosexual Current gender identity: female What is your relationship status?: How often do you talk on the phone with friends or family?: three or more times per week How often do you get together with friends or relatives?: three or more times per week Do you belong to any clubs or organized social groups?: no Panel score (0-1 are the most socially isolated patients): 1 What type of physical activity do you participate in: walking Duration: < 15 minutes/day Frequency: daily Special kana needs: No Seatbelt use: always Helmet use: No Drive intox or ride w/intox commercial driver's license driver: No Do you feel safe at home: Yes Do you feel safe in your relationship?: Yes Time Spent with Patient Time Spent with Patient: <45 minutes Time was spent: preparing to see the patient(eg.review tests)
--- NOTE | 2024-08-13 15:12 | CMDISCH_ITS ---
Date of service: 08/13/24 Time of Service: 15:12 LACE Index Scoring Tool Questions: Length of Stay (in days): 1 Was the patient admitted via the E.D.?: No E.D. Visits: 0 Answers: Total Score: 1 Risk of Readmission: Low Risk Care Management Discharge Plan Reason for Hospitalization: Left THR Discharge Plan: Pari is discharged home via private vehicle with family. Pt will follow up with community providers and discharge plan of care as directed. No [facility] services were ordered prior to discharge. Outpatient follow up with Ortho will be on 08/27/24, as scheduled. Patient/Family Education Needs: Review discharge instructions and plan to follow up after discharge. Discuss ask me three. SDOH Health Related Social Needs: Health related social needs education (Z55.6)
== END 2024-08-13 10:58 | disposition home or self-care (01) ==
LOC: SUR 17:42 → MS 17:42
PROVIDERS: Admitting Provider Student in an Organized Health Care Education/Training Program; PCP Nurse Practitioner Family; Visit Provider Student in an Organized Health Care Education/Training Program
PROC: (CPT 27130; principal; 2024-08-12 12:30)
DX: M16.12 Unilateral primary osteoarthritis, left hip (principal); K21.9 Gastro-esophageal reflux disease without esophagitis; R73.03 Prediabetes; I10 Essential (primary) hypertension; G47.33 Obstructive sleep apnea (adult) (pediatric); F33.9 Major depressive disorder, recurrent, unspecified; E03.9 Hypothyroidism, unspecified; E78.5 Hyperlipidemia, unspecified; E66.9 Obesity, unspecified; Z68.41 Body mass index [BMI] 40.0-44.9, adult
CPT/HCPCS: 27130; 20985; 73552; 96374; 96375; 96376; 97110; 97162; 97530; 73501; C1776; G0378; J0690; J1100; J1171; J1885; J2003; J2250; J2371; J2401; J2405; J2704; J3010

== ENCOUNTER 2024-08-27 15:35 | Outpatient (CLI) | payer MEDICARE, SELFPAY ==
--- NOTE | 2024-08-27 14:30 | DI.RAD_ITS ---
Exam(s) XR HIP LT COMPLETE AP PELVIS EXAM: XR HIP LT COMPLETE AP PELVIS CLINICAL HISTORY: 1ST POST OP S/P L BHARATHI. TECHNIQUE: 2D digital imaging was performed. COMPARISON: CR XR PELVIS AP from 07/02/2024 CR XR FEMUR LT from 08/12/2024 FINDINGS: Two views Again noted is advanced degenerative change in the right hip and there is a recently placed left hip prosthesis (08/12/2024) The components of the recently placed left hip prosthesis remain in satisfactory position alignment. The nondisplaced fracture line in the lateral aspect of the left acetabulum is unchanged from 2024. This was not evident on images of 07/02/2024. IMPRESSION: Left hip prosthesis and acetabulum findings as above, stable when compared to images of 08/12/2024 Advanced degenerative changes again noted in the right hip. DATA REPOSITORY: RADIATION DOSE DELIVERED:
== END 2024-08-27 15:36 | disposition home or self-care (01) ==
LOC: DIORS 15:36
PROVIDERS: PCP Nurse Practitioner Family; Visit Provider Student in an Organized Health Care Education/Training Program
DX: Z96.642 Presence of left artificial hip joint (principal); Z47.1 Aftercare following joint replacement surgery
CPT/HCPCS: 73502

== ENCOUNTER → 2024-09-24 13:56 | Outpatient (BNVA) | payer MEDICARE, SELFPAY | PROVIDERS: PCP Nurse Practitioner Family; Referring Provider Nurse Practitioner Family; Visit Provider Physician Assistant | DX: Z47.1 Aftercare following joint replacement surgery (principal); Z96.642 Presence of left artificial hip joint | CPT/HCPCS: 99024 ==

== ENCOUNTER 2024-10-06 01:49 | Outpatient (CLI) | payer MEDICARE, SELFPAY ==
--- NOTE | 2024-10-06 12:00 | DI.US_ITS ---
Exam(s) US THYROID EXAM: US THYROID CLINICAL HISTORY: evaluate thyroid nodules- please compare to last US,e04.1. TECHNIQUE: Ultrasound thyroid performed using standard protocol. COMPARISON: US US THYROID from 10/03/2023 FINDINGS: ISTHMUS: 3.0 mm RIGHT LOBE: Size: 4.2 x 1.5 x 1.3 cm Echogenicity: Normal. Vascularity: Normal. Nodules: There is again seen a nodule in the mid to lower pole of the right lobe of the thyroid gland . It is solid and isoechoic. It is taller than wide. It measures 1.3 x 1.3 x 1.0 cm. Is consisten t with a TI rads 4 level nodule. Due to its size, follow-up is recommended. There are other nodule seen in the thyroid gland which do not warrant biopsy or follow-up. LEFT LOBE: Size: 4.5 x 1.6 x 1.5 cm Echogenicity: Normal. Vascularity: Normal. Nodules: There are multiple thyroid nodules. The largest is in the midpole and measures 1.5 x 1.3 x 1.1 cm. This compares to 1.2 x 1.0 x 1.0 on the prior examination. It does appear taller than wide on the current examination. It is consistent with a TI rads 4 level nodule. Due to its size, FNA is recommended. There is a solid isoechoic nodule in the inferior pole measuring 1.2 x 1.0 x 1.2 cm. It is a TI rads level 3 nodule. Due to its size, no follow-up or biopsy is recommended. OTHER FINDINGS: None. IMPRESSION: Multinodular thyroid gland. There is a nodule seen in the left lobe measuring 1.5 x 1.3 x 1.1 cm. I t is consistent with a TI rads 4 level nodule. Due to its size, FNA is recommended. DATA REPOSITORY:
--- NOTE | 2024-10-06 12:00 | DI.MAMMO_ITS ---
Exam(s) MAMMO SCREENING EXAM: MAMMO SCREENING CLINICAL HISTORY: screening,z12.39 TECHNIQUE: Bilateral full field digital CC and MLO mammographic images were obtained with 3D tomosyn thesis and utilizing computer aided detection (CAD). COMPARISON: Available for comparison. FINDINGS: Masses/Architectural Distortion: The nodule in the upper outer quadrant of the right breast appears s table. No new or suspicious nodules or areas of architectural distortion are present. Microcalcifications: No suspicious pleomorphic-type are seen. Skin Thickening/Nipple Retraction: None. IMPRESSION: 1. No significant interval change with no specific features of malignancy noted. 2. Unless there is more urgent need, screening mammography is recommended, as per [employer] guidelines. BI-RADS Category 2 - Benign Findings Breast Density - Category B - There are scattered areas of fibroglandular density. Breast density category C or D implies that the patient has dense breast tissue. Dense breast tissue is very common and is not abnormal but dense breast tissue can make it harder to find cancer on a ma mmogram. Also, dense breast tissue may increase their breast cancer risk. This information about the result of the mammogram report was provided to the patient to raise their awareness. Use this report when you speak with the patient about their risks for breast cancer, which includes their family hist ory. At that time, you may recommend for more screening tests (Ultrasound or MRI) as they might be us eful based on their risk. A negative radiographic report should not delay biopsy if a dominant or clinically suspicious mass is present. Up to ten percent of cancers are not identified on mammography. A negative report may reinforce clinical impression. Adenosis and dense breasts may obscure an underlying neoplasm. False positive reports average 6 to 10%. Patient will receive a letter notifying them of these results.
== END 2024-10-06 02:09 ==
LOC: DI 01:49
PROVIDERS: PCP Nurse Practitioner Family; Visit Provider Nurse Practitioner Family
DX: E04.1 Nontoxic single thyroid nodule (principal); Z12.31 Encounter for screening mammogram for malignant neoplasm of breast
CPT/HCPCS: 77063; 77067; 76536

== ENCOUNTER → 2024-11-02 14:20 | Outpatient (BNVA) | payer MEDICARE, SELFPAY | PROVIDERS: PCP Nurse Practitioner Family; Visit Provider Student in an Organized Health Care Education/Training Program | DX: Z47.1 Aftercare following joint replacement surgery (principal); Z96.642 Presence of left artificial hip joint | CPT/HCPCS: 99024 ==

== ENCOUNTER → 2024-12-01 09:55 | Outpatient (BNVA) | payer MEDICARE, SELFPAY | PROVIDERS: PCP Nurse Practitioner Family; Referring Provider Nurse Practitioner Family; Visit Provider Podiatrist | DX: L60.3 Nail dystrophy (principal); B35.1 Tinea unguium; M79.672 Pain in left foot; Z96.642 Presence of left artificial hip joint; M76.822 Posterior tibial tendinitis, left leg; M76.812 Anterior tibial syndrome, left leg | CPT/HCPCS: 99214 ==

== ENCOUNTER 2024-12-01 11:52 | Outpatient (CLI) | payer MEDICARE, SELFPAY ==
--- NOTE | 2024-12-01 11:15 | DI.RAD_ITS ---
Exam(s) XR ANKLE LT COMPLETE EXAM: XR ANKLE LT COMPLETE CLINICAL HISTORY: M79.672 Pain in the medial foot/ankle. TECHNIQUE: 2D digital imaging was performed. COMPARISON: No exams were available for comparison FINDINGS: 3 views There is prominent soft tissue swelling around the entire ankle as well as in the calf. There is no evidence acute fracture or widening the ankle mortise. Talar dome unremarkable. There are no obvious degenerative changes in the ankle tibiotalar joint nor in the subtalar joint. There is a large inferior calcaneal spur and there is an enthesophyte on the posterior calcaneus Achilles insertion site. There is no calcification noted in the plantar fascia. Incidentally noted on 1 image is the screws seen more distally which is probably in the distal great toe metatarsal. IMPRESSION: No acute osseous findings in the ankle. No widening of the ankle mortise. Soft tissue swelling on both sides the ankle and calf noted. DATA REPOSITORY: RADIATION DOSE DELIVERED:
--- NOTE | 2024-12-01 11:15 | DI.RAD_ITS ---
Exam(s) XR FOOT LT COMPLETE EXAM: XR FOOT LT COMPLETE CLINICAL HISTORY: M79.672 left foot and ankle pain, medial. TECHNIQUE: 2D digital imaging was performed. COMPARISON: No exams were available for comparison FINDINGS: 3 views There is no evidence of fracture or diastasis of the Lisfranc joint. There is evidence of prior bunion surgery with shaving of the medial head of the great toe metatarsal. There is also a single vertically orientated screw in the head of the great toe metatarsal. There are moderate degenerative changes in the great toe metatarsophalangeal joint. There is the inferior calcaneal spur. There is also enthesophyte on the posterior calcaneus Achilles insertion site. There is no calcification in the plantar fascia. IMPRESSION: No acute osseous findings in the foot. Prior hallux valgus bunion surgery DATA REPOSITORY: RADIATION DOSE DELIVERED:
== END 2024-12-01 12:12 ==
LOC: DI 11:52
PROVIDERS: PCP Nurse Practitioner Family; Visit Provider Podiatrist
DX: M79.672 Pain in left foot (principal); M25.774 Osteophyte, right foot; M77.51 Other enthesopathy of right foot and ankle; Z98.890 Other specified postprocedural states
CPT/HCPCS: 73610; 73630

== ENCOUNTER 2024-12-02 12:15 | Observation (INO) | payer MEDICARE, SELFPAY ==
[2024-12-02] VITALS (52 sets, daily range): BP systolic 97–120; BP diastolic 44–72; PULSE 98–135; RESP 12–29; TEMP 37.3–37.6; O2SAT 91–98
--- NOTE | 2024-12-02 12:15 | RT.EKG_ITS ---
APPROVED REPORT Exam: Resting ECG Reason for Exam: Chest Pain Patient Location: E HR:111 bpm ECG Measurements Heart Rate 111 AXIS ID 155 P 54 QRSd 96 QRS 37 QT 327 T 36 QTc 443 Conclusion Sinus tachycardia 111 no stemi
--- NOTE | 2024-12-02 12:30 | DI.RAD_ITS ---
Exam(s) XR PORTABLE CHEST AP EXAM: XR PORTABLE CHEST AP CLINICAL HISTORY: Chest pain. TECHNIQUE: 2D digital imaging was performed. COMPARISON: CR XR CHEST 2V PA LATERAL from 12/29/2020 FINDINGS: Single AP portable view. Heart size is upper normal. The mediastinum is not widened. Lungs are clear. No infiltrates nor obvious pleural effusions. IMPRESSION: No acute pulmonary findings on this single AP portable view of the chest. DATA REPOSITORY: RADIATION DOSE DELIVERED:
[2024-12-02] MEDS: nitroGLYcerin 0.4 MG TAB (12:35)
[2024-12-02 12:42] LABS: Abs Immature Grans 0.04 10^3/uL (0.0-0.06); HCT 36.4 % (36.0-46.0); HGB 11.6 g/dL (11.2-15.7); Immature Grans % 0.4 %; MCH 27.8 pg (27.0-33.0); MCHC 31.9 % (32.0-36.0); MCV 87 fL (80-95); MPV 11.1 fL (8.0-11.0); Platelet Count 140 10^3/uL (130-400); RBC 4.17 10^6/uL (3.93-5.22); RDW 13.7 % (11.7-14.6); RDW-SD 43.8 fL; WBC 9.43 10^3/uL (4.4-10.8)
[2024-12-02 12:49] LABS: INR 1.1 (0.9-1.1); Prothrombin Time 10.8 sec (9.1-11.1)
[2024-12-02 13:02] LABS: ALT 19 U/L (14-59); AST 19 U/L (15-37); Albumin 3.2 g/dL (3.4-5.0); Alkaline Phosphatase 70 U/L (46-116); Anion Gap 7.9 mmol/L (3-11); BUN 13 mg/dL (7-18); Bilirubin, Total 0.8 mg/dL (0.2-1.0); CO2 30.1 mmol/L (21.0-32.0); Calcium 9.0 mg/dL (8.5-10.1); Chloride 100 mmol/L (98-107); Estimated GFR 53.39 (mL/min/1.73m2); Glucose 140 mg/dL (74-106); Lipase 15 U/L (<78); NT-proBNP 163 pg/mL (<300); Potassium 4.0 mmol/L (3.5-5.1); Sodium 138 mmol/L (136-145); Total Protein 7.1 g/dL (6.4-8.2); Troponin I 6 ng/L (<or=51)
[2024-12-02] MEDS: ALPRAZolam 0.25 MG TAB PO (13:09)
--- NOTE | 2024-12-02 13:45 | DI.CT_ITS ---
Exam(s) CT HEAD WO EXAM: CT HEAD WO CLINICAL HISTORY: AMS. TECHNIQUE: Imaging Protocol: Axial computed tomography images with coronal and sagittal reformatted images were created and reviewed COMPARISON: CT CT BRAIN NECK CTA from 09/23/2023 FINDINGS: Ventricles and Extra axial spaces: Normal in size and morphology for the patient's age. Hemorrhage: None. Cerebral parenchyma: No evidence of acute infarct or mass. Midline shift: None. Brainstem/Cerebellum: Normal. Bones: No skull or facial fractures. Visualized Paranasal sinuses:Clear. Mastoids: Clear. Soft Tissues: Unremarkable. ORBITS: Unremarkable. PITUITARY: Not enlarged. IMPRESSION: No acute intracranial process. RADIATION DOSE DELIVERED: 848.73mGy.cm Total DLP DATA REPOSITORY: All CT scans at this facility are submitted to the National Radiology Data Registry (NRDR) Dose Index Registry (DIR) with the [employer] ([employer]). RADIATION OPTIMIZATION: All CT scans at this facility use at least one of these dose optimization techniques: automated exposure control; mA and/or kV adjustment per patient size (includes targeted exams where dose is matched to clinical indication); or iterative reconstruction.
--- NOTE | 2024-12-02 13:45 | DI.CT_ITS ---
Exam(s) CT CHEST PE CTA EXAM: CT CHEST PE CTA CLINICAL HISTORY: SOB. TECHNIQUE: Imaging Protocol: Axial CT angiography was performed with multi- slice acquisition and multi-planar reconstructions as well as axial, coronal and sagittal MIP reconstructions. Computer aided detection (CAD) was utilized. CONTRAST MATERIAL: Intravenous: Omnipaque 350 Contrast volume:100 ml COMPARISON: CT CHEST FOR PULMONARY EMBOLUS from 05/12/[address] RENAL COLIC WO from 09/11/2022 CR XR PORTABLE CHEST AP from 12/02/2024 FINDINGS: Exam is limited by artifact secondary to patient arm positioning. The patient was unable to raise her arms over her head. Pulmonary Arteries: No evidence of filling defect to suggest pulmonary emboli. Mediastinum and Jodie: No dominant adenopathy or fluid collection. Pulmonary parenchyma: Expiratory changes. No consolidation or dominant measurable mass. Pleura: No effusion or pneumothorax. Heart: The heart is mildly dilated. No coronary artery calcifications are seen. Aorta: Thoracic aorta non-dilated. No dissection. Upper abdomen: No acute findings. Bones: Unremarkable for age. Tubes, Catheters, and Lines: None Soft tissues: Unremarkable. IMPRESSION: No evidence of pulmonary embolism or other acute abnormality. RADIATION DOSE DELIVERED: 409.75mGy.cm Total DLP DATA REPOSITORY: All CT scans at this facility are submitted to the National Radiology Data Registry (NRDR) Dose Index Registry (DIR) with the [employer] (ACR). RADIATION OPTIMIZATION: All CT scans at this facility use at least one of these dose optimization techniques: automated exposure control; mA and/or kV adjustment per patient size (includes targeted exams where dose is matched to clinical indication); or iterative reconstruction.
[2024-12-02 14:36] LABS: Troponin I 7 ng/L (<or=51)
[2024-12-02] MEDS: Normal Saline - Diluent 50 ML VIAL IJ (14:44)
[2024-12-02] MEDS: Omnipaque 350 MG/ML 100 ML BTL IJ (14:44)
[2024-12-02 14:52] LABS: Glucose Negative (Negative)
[2024-12-02 15:02] LABS: C & S Indicated? Yes; RBC 0-2 HPF (0-2)
[2024-12-02] MEDS: cefTRIAXone 1 GM/50 ML BAG IVPB (15:12)
--- NOTE | 2024-12-02 15:26 | HPE_ITS ---
Date of service: 12/02/24 Time of Service: 15:26 Assessment and Plan Assessment and plan (1) Encephalopathy acute: Status: Acute Assessment and plan: most likely infectious d/t point 2 Not meeting sepsis criteria Will continue to monitor (2) Acute UTI: Status: Acute Assessment and plan: on ceftriaxone Urine Cx pending (3) Osteoarthritis of left knee: Status: Chronic Assessment and plan: Scheduled acetaminophen and home medicine regimen will hold neurotin until improved mentation achieved (4) Hypothyroidism: Status: Chronic Assessment and plan: On home meds Labs in AM (5) Ambulatory dysfunction: Assessment and plan: PT consult (6) Hypertension: Status: Chronic Assessment and plan: on home meds (7) On deep vein thrombosis (DVT) prophylaxis: Status: Acute Assessment and plan: on LMWH (8) Discharge planning issues: Status: Deleted Assessment and plan: lived in an assited living facility - patient could not confirm - CM to f/u D/c as per PT recommendation when ready Discussed with Dr. Mcbride History of Present Illness History of Present Illness Chief Complaint: chest pain, AMS, Encephalopathy N arrative: This 74 years old female patient with past medical history of osteoarthritis of both knees with right knee replacement morbidly obese, hypertension, hypothyroidism, hyperlipidemia, depression presented to the ED via EMS after being found tearful and confused at home. EKG showed no signs of coronary artery occlusion but showed sinus tachycardia heart rate 111. Troponins were negative X2. Chest CT was negative for pulmonary emboli or other acute abnormality. Head CT was negative for acute findings. Urinalysis showed positive UTI for which treatment was initiated with ceftriaxone IV urine cultures were pending. Blood work was unremarkable except for slight elevation in creatinine that might point to dehydration. The patient remained mentally altered when seen but was unable to compare with baseline. The patient will be admitted to the medical surgical floor by the hospitalist service for evaluation management of infectious encephalopathy most likely due to urinary tract infection and dehydration. The patient confirmed DNR but would like intubation. Review of Systems All systems reviewed & are unremarkable except as noted in HPI and below PFSH All Active Problems On deep vein thrombosis (DVT) prophylaxis (Acute) Encephalopathy acute (Acute) Acute UTI (Acute) Altered mental status (Acute) Breast cancer screening (Acute) History of total left hip arthroplasty (Acute 08/12/24) Seasonal affective disorder (Acute) Intercostal neuralgia (Acute) left sided anterior pain reproducible on exam, nonexertional Hip pain, right (Acute) Nail dystrophy (Acute) Onychomycosis (Acute) Acid reflux (Chronic) Thyroid nodule (Acute) Arthritis of left knee (Acute) Osteoarthritis of right hip (Acute) POCUS INJECTION 04/02/24 Tubular adenoma (Acute) Hip pain, bilateral (Acute) Pain in right foot (Acute) Trigger thumb of left hand (Acute) Pain in joint of left knee (Acute) Pain in right wrist (Acute) Pain, joint, knee, right (Acute) 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 (Acute) Screening for malignant neoplasm of breast (Acute) Presence of total knee joint prosthesis (Acute) Prediabetes (Acute) Snoring (Acute) Anesthesia of skin (Acute) Low back pain (Acute) Disorder of hip joint (Acute) Ankylosis of joint (Acute) Idiopathic osteoarthritis (Acute) Steatosis of liver (Acute) Intestinal obstruction (Acute) Chronic sinusitis (Acute) Essential hypertension (Acute) Rheumatic tricuspid valve regurgitation (Acute) Trigeminal neuralgia (Acute) Migraine with aura (Acute) Migraine (Chronic) Obstructive sleep apnea syndrome (Chronic) Using CPAP Recurrent major depression (Acute) Mild major depression (Acute) Hypopituitarism (Acute) Hypothyroidism (Chronic) Polyp of colon (Acute) Onychomycosis due to dermatophyte (Acute) Hypertension (Chronic) Hyperlipemia (Acute) Effusion, left knee (Acute) Obesity, morbid, BMI 40.0-49.9 (Chronic) Osteoarthritis of left knee (Chronic) DEPO INJECTION: 05/16/21 Painful total knee replacement, right (Acute) Arthrofibrosis of total knee arthroplasty (Acute) Unilateral primary osteoarthritis, left knee (Acute) Depo-Medrol injection: 11/03/2020, 05/12/2020 Femoroacetabular impingement of both hips (Acute) Status post cataract extraction and insertion of intraocular lens of right eye (Chronic 08/18/18) Diplopia (Acute) Head ache (Acute) Status post cataract extraction and insertion of intraocular lens of left eye (Chronic 08/04/18) Medical History Laryngitis Dyspnea Denies Acute pharyngitis Edema Localized edema Malaise Dizziness and giddiness Intractable pain Ambulatory dysfunction Inability to ambulate due to left knee Weakness Depression Obesity Blood glucose elevated Enlarged liver Tricuspid regurgitation History of colon cancer Cortical cataract of left eye Posterior subcapsular age-related cataract of left eye Nuclear sclerotic cataract of left eye Surgical History H/O total hysterectomy with bilateral salpingo-oophorectomy (BSO) Status post total right knee replacement followed by open synovectomy then revision Status post cataract extraction Bilateral Hx of colonoscopy History of hemicolectomy Family History Maternal Grandfather Alcohol use disorder Maternal Aunt Cancer Maternal Uncle Lung cancer Mother Hypertension Heart disease Diabetes Dementia Father Brain tumor Brother Hypertension Son Stroke Maternal Grandmother , from old age Dementia Paternal Grandfather , - horse accident No problems noted. Social History Smoking/Tobacco Use Status: Former Tobacco Use Quit Date: 05/27/04 Second Hand Exposure: No Smoking risk assessment performed?: Yes Alcohol Intake: current Alcohol Intake frequency: holidays/special occasions only Drug use: Rarely Substance use type: marijuana Details: alcohol: unknown. Marijuana: 2-3 years Adopted: No Caregiver/Support person: No Foster care: No Household members: none Housing: apartment Number of Children: 1 number of grandchildren: 3 Communication Needs: None Education Level: college Details: associates degree Do you need help understanding health information?: Never current occupation: retired Pets and animals: No Do you think of yourself as: straight/heterosexual Current gender identity: female What is your relationship status?: How often do you talk on the phone with friends or family?: three or more times per week How often do you get together with friends or relatives?: three or more times per week Do you belong to any clubs or organized social groups?: no Panel score (0-1 are the most socially isolated patients): 1 What type of physical activity do you participate in: walking Duration: < 15 minutes/day Frequency: daily Special kana needs: No Seatbelt use: always Helmet use: No Drive intox or ride w/intox route salesman and driver: No Do you feel safe at home: Yes Do you feel safe in your relationship?: Yes Meds Allergies and Home Medications Allergies Allergy/AdvReac Type Severity Reaction Status Date / Time nickel (Nickel) Allergy Mild Skin Rash Verified 12/02/24 15:52 sulfamethoxazole (From AdvReac Unknown Nausea Verified 12/02/24 15:52 Bactrim) trimethoprim (From Bactrim) AdvReac Unknown Nausea Verified 12/02/24 15:52 aripiprazole AdvReac Dizziness/L Verified 12/02/24 15:52 ighthead bupropion (From Wellbutrin) AdvReac CONFUSION Verified 12/02/24 15:52 Home Medications ?Medication ?Instructions ?Recorded ?Confirmed ?Type levothyroxine 50 mcg tablet 50 mcg PO DAILY 02/04/20 0 12/02/24 History Vitamin D2-Vitamin K1 See Rx Instructions PO DAILY 12/23/23 12/02/24 History calcium 500 mg (as 1 tab PO DAILY 12/23/2302/18 History carbonate)-vitamin D3 10 mcg (400 unit) tablet rizatriptan 5 mg disintegrating 5 mg PO .COMPLEX PRN 0 12/23/23 12/02/24 History tablet (Maxalt-[employer]NAGER) hydrochlorothiazide 12.5 mg tablet 12.5 mg PO DAILY #9 0 tabs 12/25/23 12/02/24 Rx diclofenac sodium 1 % topical gel 2 g topical QID #100 grams 01/21/24 12/02/24 Rx ketoconazole 2 % topical cream 1 applic topical DAILY #120 grams 06/02/24 12/02/24 Rx losartan 50 mg tablet (Cozaar) 50 mg PO DAILY #90 tab- caps 07/07/24 12/02/24 Rx omeprazole 20 mg capsule,delayed See Rx Instructions . Route 07/30/24 12/02/24 Rx release .COMPLEX #30 caps acetaminophen 500 mg tablet 1,000 mg (2 x 500 mg) PO T ID #90 08/12/24 12/02/24 Rx tabs gabapentin 300 mg capsule See Rx Instructions .Route 0 08/24/24 12/02/24 Rx .COMPLEX #60 caps aspirin 81 mg tablet,delayed 81 mg PO DAILY 09/08/24 0 12/02/24 History release celecoxib 100 mg capsule 100 mg PO QAM 09/08/2412/02 History simvastatin 40 mg tablet 40 mg PO DAILY cholesterol # 90 10/20/24 12/02/24 Rx tab-caps celecoxib 200 mg capsule See Rx Instructions .Route 0 11/11/24 12/02/24 Rx .COMPLEX #60 caps duloxetine 60 mg capsule,delayed 60 mg PO BID 12/02/24 12/02/24 History release Exam Narrative Exam Narrative: obese body habitus, no acute distress, A & oriented to self, no focal neurlogical deficit, clear lungs, regular heart, no murmur, abdomen is large, non-distended, soft and non-tender, moves all 4 ext, no CVA tnederness Results Labs 12/02/24 12:31 12/02/24 12:31 Labs: Laboratory Results - last 24 hr 12/02/24 12/02/24 12/02/24 12:31 13:31 14:05 WBC 9.43 RBC 4.17 Hgb 11.6 Hct 36.4 MCV 87 MCH 27.8 MCHC 31.9 L RDW 13.7 Plt Count 140 MPV 11.1 H Immature Gran % 0.4 Neutrophils % 82.3 Lymphocytes % 8.5 Monocytes % 8.5 Eosinophils % 0.1 Basophils % 0.2 Nucleated RBC % 0.0 Absolute Neutrophils 7.76 H Absolute Lymphocytes 0.80 L Absolute Monocytes 0.80 Absolute Eosinophils 0.01 Absolute Basophils 0.02 PT 10.8 INR 1.1 Sodium 138 Potassium 4.0 Chloride 100 Carbon Dioxide 30.1 Anion Gap 7.9 BUN 13 Creatinine 1.1 H Est GFR (CKD-EPI 2020) 53.39 Glucose 140 H Calcium 9.0 Total Bilirubin 0.8 AST 19 ALT 19 Alkaline Phosphatase 70 Troponin I 6 Cancelled 7 NT-Pro-B Natriuret Pep 163 Total Protein 7.1 Albumin 3.2 L Lipase 15 Urine Color Urine Clarity Urine pH Ur Specific [place] Urine Protein Urine Ketones Urine Blood Urine Nitrite Urine Bilirubin Urine Urobilinogen Ur Leukocyte Esterase Urine RBC Urine WBC Ur Epithelial Cells Urine Crystals Urine Bacteria Urine Casts Urine Mucus Ur Culture Indicated? Urine Glucose 12/02/24 14:43 WBC RBC Hgb Hct MCV MCH MCHC RDW Plt Count MPV Immature Gran % Neutrophils % Lymphocytes % Monocytes % Eosinophils % Basophils % Nucleated RBC % Absolute Neutrophils Absolute Lymphocytes Absolute Monocytes Absolute Eosinophils Absolute Basophils PT INR Sodium Potassium Chloride Carbon Dioxide Anion Gap BUN Creatinine Est GFR (CKD-EPI 2020) Glucose Calcium Total Bilirubin AST ALT Alkaline Phosphatase Troponin I NT-Pro-B Natriuret Pep Total Protein Albumin Lipase Urine Color Yellow Urine Clarity Cloudy Urine pH 6.0 Ur Specific [place] 1.025 Urine Protein >=300 H Urine Ketones Trace H Urine Blood Moderate H Urine Nitrite Positive H Urine Bilirubin Small H Urine Urobilinogen 1.0 H Ur Leukocyte Esterase Small H Urine RBC 0-2 Urine WBC 10-20 H Ur Epithelial Cells Rare Urine Crystals Negative Urine Bacteria Many Urine Casts Negative Urine Mucus Negative Ur Culture Indicated? Yes Urine Glucose Negative Last Vital Signs Temp 37.6 C 12/02/24 12:16 Pulse 107 H 12/02/24 15:10 Resp 20 12/02/24 14:20 BP 109/72 12/02/24 14:31 Pulse Ox 91 L 12/02/24 15:10 Time Spent Time spent with Patient: >75 minutes Time was spent: preparing to see the patient(eg.review tests), obtaining and/or reviewing separately otained hiistory, ordering medications,tests, procedures, referring, communicating with other health hospice patient care secretary, indepentently interpreting results, counseling the patient and care coordination
--- NOTE | 2024-12-02 15:37 | ED.GENADUL_ITS ---
Discharge Plan Disposition Patient Disposition: Admit to [facility] Condition: Poor Discharge Details Clinical Impression: Altered mental status, Acute UTI Primary Care Provider: Mary Barton ED Provider: Felipe Omalley Home Meds and New Rx's Prescriptions: No Action calcium carbonate-vitamin D3 500 mg-10 mcg (400 unit) tablet 1 tab PO DAILY rizatriptan [Maxalt-TOURIST INFORMATION ASSISTANT] 5 mg tablet,disintegrating 5 mg PO .COMPLEX PRN Patient Comments: months Rx Instructions: 5 mg orally Take one tab at onset of headache, may repeat once in 2-4 hours if headache does not improve or recurs. Max daily dose = 2 PRN; Vitamin D2-Vitamin K1 See Rx Instructions PO DAILY Rx Instructions: Take one orally daily; hydrochlorothiazide 12.5 mg tablet 12.5 mg PO DAILY Qty: 90 3RF losartan [Cozaar] 50 mg tablet 50 mg PO DAILY Qty: 90 3RF ketoconazole 2 % cream 1 applic topical DAILY Qty: 120 6RF Rx Instructions: Apply to toenails once daily levothyroxine 50 mcg tablet 50 mcg PO DAILY aspirin 81 mg tablet,delayed release (DR/EC) 81 mg PO DAILY celecoxib 100 mg capsule PO QAM diclofenac sodium 1 % gel 2 g topical QID Qty: 100 0RF omeprazole 20 mg capsule,delayed release(DR/EC) See Rx Instructions .ROUTE .COMPLEX Qty: 30 3RF Dose Instruction: TAKE ONE CAPSULE BY MOUTH EVERY DAY TAKE 2 HOURS AFTER A MEAL Rx Instructions: TAKE ONE CAPSULE BY MOUTH EVERY DAY TAKE 2 HOURS AFTER A MEAL gabapentin 300 mg capsule See Rx Instructions .ROUTE .COMPLEX Qty: 60 3RF Dose Instruction: TAKE ONE CAPSULE BY MOUTH TWICE A DAY Rx Instructions: TAKE ONE CAPSULE BY MOUTH TWICE A DAY duloxetine 30 mg capsule,delayed release(DR/EC) See Rx Instructions .ROUTE .COMPLEX Qty: 90 3RF Dose Instruction: TAKE TWO CAPSULES BY MOUTH EVERY MORNING AND TAKE ONE CAPSULE BY MOUTH AT BEDTIME Rx Instructions: TAKE TWO CAPSULES BY MOUTH EVERY MORNING AND TAKE ONE CAPSULE BY MOUTH AT BEDTIME simvastatin 40 mg tablet 40 mg PO DAILY Qty: 90 3RF celecoxib 200 mg capsule See Rx Instructions .ROUTE .COMPLEX Qty: 60 3RF Dose Instruction: TAKE ONE CAPSULE BY MOUTH EVERY DAY AT BEDTIME Rx Instructions: TAKE ONE CAPSULE BY MOUTH EVERY DAY AT BEDTIME acetaminophen 500 mg tablet 1,000 mg PO TID Qty: 90 3RF HPI General Date/Time Provider Initiated Documentation: 12/02/24 12:31 . Limitations to Documentation: altered mental status . Information obtained by: patient, family and EMS . HPI Narrative: 74-year-old female with past medical history including hypothyroid presents for evaluation of altered mental status. Patient came by EMS from home. EMS reports that it was very difficult to obtain history from the patient and they think that she is having chest pain, but they are not really sure. They state that she was very tearful and when provide any other information. than the other patient's friend came to the emergency department and the majority of the history is provided by them. They report that the patient was supposed to meet them at 11 AM, but she did not show up so they went to her apartment. They have to get the instructional manager to let them inside her apartment and when they found her she was tearful seeming confused. They could not really get her to explain what was going on or what might of happened. Whenever asked the patient questions, she becomes tearful and just says I do not know I do not know Related Data Home Medications ?Medication ?Instructions ?Recorded ?Confirmed levothyroxine 50 mcg tablet 50 mcg PO DAILY 02/04/20 0 12/01/24 Vitamin D2-Vitamin K1 See Rx Instructions PO DAILY 12/23/23 12/01/24 calcium 500 mg (as 1 tab PO DAILY 12/23/2301/18 carbonate)-vitamin D3 10 mcg (400 unit) tablet rizatriptan 5 mg disintegrating 5 mg PO .COMPLEX PRN 0 12/23/23 12/01/24 tablet (Maxalt-TOURIST INFORMATION ASSISTANT) hydrochlorothiazide 12.5 mg tablet 12.5 mg PO DAILY #9 0 tabs 12/25/23 12/01/24 diclofenac sodium 1 % topical gel 2 g topical QID #100 grams 01/21/24 12/01/24 ketoconazole 2 % topical cream 1 applic topical DAILY #120 grams 06/02/24 12/01/24 losartan 50 mg tablet (Cozaar) 50 mg PO DAILY #90 tab- caps 07/07/24 12/01/24 omeprazole 20 mg capsule,delayed See Rx Instructions . Route 07/30/24 12/01/24 release .COMPLEX #30 caps acetaminophen 500 mg tablet 1,000 mg (2 x 500 mg) PO T ID #90 08/12/24 12/01/24 tabs gabapentin 300 mg capsule See Rx Instructions .Route 0 08/24/24 12/01/24 .COMPLEX #60 caps aspirin 81 mg tablet,delayed 81 mg PO DAILY 09/08/24 0 12/01/24 release celecoxib 100 mg capsule mg PO QAM 09/08/24 12/01/24 simvastatin 40 mg tablet 40 mg PO DAILY cholesterol # 90 10/20/24 12/01/24 tab-caps celecoxib 200 mg capsule See Rx Instructions .Route 0 11/11/24 12/01/24 .COMPLEX #60 caps duloxetine 60 mg capsule,delayed 60 mg PO BID 12/02/24 12/02/24 release Previous Rx's ?Medication ?Instructions ?Recorded hydrochlorothiazide 12.5 mg tablet 12.5 mg PO DAILY #9 0 tabs 12/25/23 diclofenac sodium 1 % topical gel 2 g topical QID #100 grams 01/21/24 ketoconazole 2 % topical cream 1 applic topical DAILY #120 grams 06/02/24 losartan 50 mg tablet (Cozaar) 50 mg PO DAILY #90 tab- caps 07/07/24 omeprazole 20 mg capsule,delayed See Rx Instructions . Route 07/30/24 release .COMPLEX #30 caps acetaminophen 500 mg tablet 1,000 mg (2 x 500 mg) PO T ID #90 08/12/24 tabs gabapentin 300 mg capsule See Rx Instructions .Route 0 08/24/24 .COMPLEX #60 caps simvastatin 40 mg tablet 40 mg PO DAILY cholesterol # 90 10/20/24 tab-caps celecoxib 200 mg capsule See Rx Instructions .Route 0 11/11/24 .COMPLEX #60 caps Allergies Allergy/AdvReac Type Severity Reaction Status Date / Time nickel (Nickel) Allergy Mild Skin Rash Verified 12/02/24 15:52 sulfamethoxazole (From AdvReac Unknown Nausea Verified 12/02/24 15:52 Bactrim) trimethoprim (From Bactrim) AdvReac Unknown Nausea Verified 12/02/24 15:52 aripiprazole AdvReac Dizziness/L Verified 12/02/24 15:52 ighthead bupropion (From Wellbutrin) AdvReac CONFUSION Verified 12/02/24 15:52 General Stated Complaint: Chest Pain TIFFANY: 2 Exam Narrative Exam Narrative: Review of Systems: All systems reviewed & are unremarkable except as noted in HPI and below Well-developed, no acute distress Afebrile NCAT PERRL, normal conjunctiva Mild tachycardia, blood pressure is on the low side, but not hypotensive Unlabored respiratory effort Nondistended abdomen soft nontender Extremities w/o deformity, no cyanosis, no edema no focal neurologic deficits, oriented to person place, but unable to answer simple questions like you take medicines Appropriate mood and affect Course Vital Signs Vital signs: Vital Signs Temperature 37.6 C 12/02/24 12:16 Pulse 113 H 12/02/24 12:16 Respiratory Rate 26 H 12/02/24 12:16 Blood Pressure 120/68 12/02/24 12:16 Pulse Oximetry 94 12/02/24 12:16 Temperature 37.6 C 12/02/24 12:16 Pulse 107 H 12/02/24 15:10 Pulse 105 H 12/02/24 14:20 Respiratory Rate 20 12/02/24 14:20 Blood Pressure 109/72 12/02/24 14:31 Blood Pressure Mean 81 12/02/24 14:31 Blood Pressure Position Supine 12/02/24 12:16 Pulse Oximetry 91 L 12/02/24 15:10 Oxygen Delivery Method Nasal Cannula 12/02/24 12:16 Oxygen Flow Rate 4 12/02/24 12:16 Pain Level 10 12/02/24 12:16 Comment nc 12/02/24 13:19 Lab/Test Results Lab/Test Results: 12/02/24 14:43 Urine - Reflex from Ua Urine Culture - Pending Laboratory Tests Range/Units 12/02/24 12/02/24 12/02/24 12:31 13:31 14:05 WBC (4.4-10.8) 10^3/uL 9.43 RBC (3.93-5.22) 10^6/uL 4.17 Hgb (11.2-15.7) g/dL 11.6 Hct (36.0-46.0) % 36.4 MCV (80-95) fL 87 MCH (27.0-33.0) pg 27.8 MCHC (32.0-36.0) % 31.9 L RDW (11.7-14.6) % 13.7 Plt Count (130-400) 10^3/uL 140 MPV (8.0-11.0) fL 11.1 H Immature Gran % % 0.4 Neutrophils % % 82.3 Lymphocytes % % 8.5 Monocytes % % 8.5 Eosinophils % % 0.1 Basophils % % 0.2 Nucleated RBC % (0.0-0.3) % 0.0 Absolute Neutrophils (1.2-6.7) 10^3/uL 7.76 H Absolute Lymphocytes (1.2-3.4) 10^3/uL 0.80 L Absolute Monocytes (0.1-0.8) 10^3/uL 0.80 Absolute Eosinophils (0.0-0.7) 10^3/uL 0.01 Absolute Basophils (0.0-0.2) 10^3/uL 0.02 PT (9.1-11.1) sec 10.8 INR (0.9-1.1) 1.1 Sodium (136-145) mmol/L 138 Potassium (3.5-5.1) mmol/L 4.0 Chloride (98-107) mmol/L 100 Carbon Dioxide (21.0-32.0) mmol/L 30.1 Anion Gap (3-11) mmol/L 7.9 BUN (7-18) mg/dL 13 Creatinine (0.55-1.02) mg/dL 1.1 H Est GFR (CKD-EPI 2020) (mL/min/1.73m2) 53.39 Glucose (74-106) mg/dL 140 H Calcium (8.5-10.1) mg/dL 9.0 Total Bilirubin (0.2-1.0) mg/dL 0.8 AST (15-37) U/L 19 ALT (14-59) U/L 19 Alkaline Phosphatase (46-116) U/L 70 Troponin I (<or=51) ng/L 6 Cancelled 7 NT-Pro-B Natriuret Pep (<300) pg/mL 163 Total Protein (6.4-8.2) g/dL 7.1 Albumin (3.4-5.0) g/dL 3.2 L Lipase (<78) U/L 15 Urine Color (Yellow) Urine Clarity (Clear) Urine pH (5-8) Ur Specific [place] (1.005-1.025) Urine Protein (Neg-Trace) mg/dL Urine Ketones (Negative) mg/dL Urine Blood (Negative) Urine Nitrite (Negative) Urine Bilirubin (Negative) Urine Urobilinogen (Up to 0.2) mg/dL Ur Leukocyte Esterase (Negative) Urine RBC (0-2) HPF Urine WBC (0-5) HPF Ur Epithelial Cells (Negative) HPF Urine Crystals (Negative) HPF Urine Bacteria (Negative) HPF Urine Casts (Negative) LPF Urine Mucus (Negative) Ur Culture Indicated? Urine Glucose (Negative) mg/dL Range/Units 12/02/24 14:43 WBC (4.4-10.8) 10^3/uL RBC (3.93-5.22) 10^6/uL Hgb (11.2-15.7) g/dL Hct (36.0-46.0) % MCV (80-95) fL MCH (27.0-33.0) pg MCHC (32.0-36.0) % RDW (11.7-14.6) % Plt Count (130-400) 10^3/uL MPV (8.0-11.0) fL Immature Gran % % Neutrophils % % Lymphocytes % % Monocytes % % Eosinophils % % Basophils % % Nucleated RBC % (0.0-0.3) % Absolute Neutrophils (1.2-6.7) 10^3/uL Absolute Lymphocytes (1.2-3.4) 10^3/uL Absolute Monocytes (0.1-0.8) 10^3/uL Absolute Eosinophils (0.0-0.7) 10^3/uL Absolute Basophils (0.0-0.2) 10^3/uL PT (9.1-11.1) sec INR (0.9-1.1) Sodium (136-145) mmol/L Potassium (3.5-5.1) mmol/L Chloride (98-107) mmol/L Carbon Dioxide (21.0-32.0) mmol/L Anion Gap (3-11) mmol/L BUN (7-18) mg/dL Creatinine (0.55-1.02) mg/dL Est GFR (CKD-EPI 2020) (mL/min/1.73m2) Glucose (74-106) mg/dL Calcium (8.5-10.1) mg/dL Total Bilirubin (0.2-1.0) mg/dL AST (15-37) U/L ALT (14-59) U/L Alkaline Phosphatase (46-116) U/L Troponin I (<or=51) ng/L NT-Pro-B Natriuret Pep (<300) pg/mL Total Protein (6.4-8.2) g/dL Albumin (3.4-5.0) g/dL Lipase (<78) U/L Urine Color (Yellow) Yellow Urine Clarity (Clear) Cloudy Urine pH (5-8) 6.0 Ur Specific [place] (1.005-1.025) 1.025 Urine Protein (Neg-Trace) mg/dL >=300 H Urine Ketones (Negative) mg/dL Trace H Urine Blood (Negative) Moderate H Urine Nitrite (Negative) Positive H Urine Bilirubin (Negative) Small H Urine Urobilinogen (Up to 0.2) mg/dL 1.0 H Ur Leukocyte Esterase (Negative) Small H Urine RBC (0-2) HPF 0-2 Urine WBC (0-5) HPF 10-20 H Ur Epithelial Cells (Negative) HPF Rare Urine Crystals (Negative) HPF Negative Urine Bacteria (Negative) HPF Many Urine Casts (Negative) LPF Negative Urine Mucus (Negative) Negative Ur Culture Indicated? Yes Urine Glucose (Negative) mg/dL Negative Medical Decision Making Emergent evaluation of altered mental status. There was concern that the patient was initially presenting for chest pain though she is unable to tell me if her chest hurts. She is tearful with just the blood pressure cuff, she is not able to coherently answer any questions without crying. The EKG does not reveal an acute ischemic etiology. Lab work was obtained, there is no leukocytosis or anemia, no significant electrolyte derangement. Troponins have been normal. Given the change in her mental status, head CT was obtained, reviewed the radiologist report and this was unremarkable for any acute etiology. Given her vague symptoms and tachycardia, I also ordered a CTA which did not reveal pulmonary embolism. Her urinalysis was obtained, and this does reveal signs of infection. When I asked the patient if she was having any urinary symptoms, she just started crying again and said I do not know. She has been cultured and started on antibiotics and the patient will be admitted to the hospital for further treatment given the severity of her altered mental status. Quality:SDOH Health Related Social Needs: Health related social needs education PFSH All Active Problems Acute UTI (Acute) Altered mental status (Acute) Breast cancer screening (Acute) History of total left hip arthroplasty (Acute 08/12/24) Seasonal affective disorder (Acute) Intercostal neuralgia (Acute) left sided anterior pain reproducible on exam, nonexertional Hip pain, right (Acute) Nail dystrophy (Acute) Onychomycosis (Acute) Acid reflux (Chronic) Thyroid nodule (Acute) Arthritis of left knee (Acute) Osteoarthritis of right hip (Acute) POCUS INJECTION 04/02/24 Tubular adenoma (Acute) Hip pain, bilateral (Acute) Pain in right foot (Acute) Trigger thumb of left hand (Acute) Pain in joint of left knee (Acute) Pain in right wrist (Acute) Pain, joint, knee, right (Acute) 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 (Acute) Screening for malignant neoplasm of breast (Acute) Presence of total knee joint prosthesis (Acute) Prediabetes (Acute) Snoring (Acute) Anesthesia of skin (Acute) Low back pain (Acute) Disorder of hip joint (Acute) Ankylosis of joint (Acute) Idiopathic osteoarthritis (Acute) Steatosis of liver (Acute) Intestinal obstruction (Acute) Chronic sinusitis (Acute) Essential hypertension (Acute) Rheumatic tricuspid valve regurgitation (Acute) Trigeminal neuralgia (Acute) Migraine with aura (Acute) Migraine (Chronic) Obstructive sleep apnea syndrome (Chronic) Using CPAP Recurrent major depression (Acute) Mild major depression (Acute) Hypopituitarism (Acute) Hypothyroidism (Chronic) Polyp of colon (Acute) Onychomycosis due to dermatophyte (Acute) Hypertension (Chronic) Hyperlipemia (Acute) Effusion, left knee (Acute) Obesity, morbid, BMI 40.0-49.9 (Chronic) Osteoarthritis of left knee (Chronic) DEPO INJECTION: 05/16/21 Painful total knee replacement, right (Acute) Arthrofibrosis of total knee arthroplasty (Acute) Unilateral primary osteoarthritis, left knee (Acute) Depo-Medrol injection: 11/03/2020, 05/12/2020 Femoroacetabular impingement of both hips (Acute) Status post cataract extraction and insertion of intraocular lens of right eye (Chronic 08/18/18) Diplopia (Acute) Head ache (Acute) Status post cataract extraction and insertion of intraocular lens of left eye (Chronic 08/04/18) Medical History Laryngitis Dyspnea Denies Acute pharyngitis Edema Localized edema [place]ise Dizziness and giddiness Intractable pain Ambulatory dysfunction Inability to ambulate due to left knee Weakness Depression Obesity Blood glucose elevated Enlarged liver Tricuspid regurgitation History of colon cancer Cortical cataract of left eye Posterior subcapsular age-related cataract of left eye Nuclear sclerotic cataract of left eye Surgical History H/O total hysterectomy with bilateral salpingo-oophorectomy (BSO) Status post total right knee replacement followed by open synovectomy then revision Status post cataract extraction Bilateral Hx of colonoscopy History of hemicolectomy Family History Maternal Grandfather Alcohol use disorder Maternal Aunt Cancer Maternal Uncle Lung cancer Mother Hypertension Heart disease Diabetes Dementia Father Brain tumor Brother Hypertension Son Stroke Maternal Grandmother , from old age Dementia Paternal Grandfather , - horse accident No problems noted. Social History Smoking/Tobacco Use Status: Former Tobacco Use Quit Date: 05/27/04 Second Hand Exposure: No Smoking risk assessment performed?: Yes Alcohol Intake: current Alcohol Intake frequency: holidays/special occasions only Drug use: Rarely Substance use type: marijuana Details: alcohol: unknown. Marijuana: 2-3 years Adopted: No Caregiver/Support person: No Foster care: No Household members: none Housing: apartment Number of Children: 1 number of grandchildren: 3 Communication Needs: None Education Level: college Details: associates degree Do you need help understanding health information?: Never current occupation: retired Pets and animals: No Do you think of yourself as: straight/heterosexual Current gender identity: female What is your relationship status?: How often do you talk on the phone with friends or family?: three or more times per week How often do you get together with friends or relatives?: three or more times per week Do you belong to any clubs or organized social groups?: no Panel score (0-1 are the most socially isolated patients): 1 What type of physical activity do you participate in: walking Duration: < 15 minutes/day Frequency: daily Special kana needs: No Seatbelt use: always Helmet use: No Drive intox or ride w/intox nascar driver: No Do you feel safe at home: Yes Do you feel safe in your relationship?: Yes
[2024-12-02] MEDS: Acetaminophen 325 MG TAB 650 MG PO (20:34)
[2024-12-02] MEDS: Celecoxib 200 MG CAP PO (20:34)
[2024-12-02] MEDS: Gabapentin 300 MG CAP PO (20:35)
[2024-12-02] MEDS: DULoxetine 30 MG CAP 60 MG PO (20:35)
[2024-12-03 02:53] VITALS: BP 110/72; PULSE 90; RESP 20; TEMP 37.3; O2SAT 96
[2024-12-03] MEDS: Levothyroxine 50 MCG TAB PO (06:17)
[2024-12-03] MEDS: Acetaminophen 325 MG TAB 650 MG PO (06:45)
[2024-12-03] MEDS: Lactated Ringers 1,000 ML 100 ML IV (06:45)
[2024-12-03 07:41] LABS: Abs Immature Grans 0.05 10^3/uL (0.0-0.06); HCT 40.1 % (36.0-46.0); HGB 12.8 g/dL (11.2-15.7); Immature Grans % 0.8 %; MCH 28.3 pg (27.0-33.0); MCHC 31.9 % (32.0-36.0); MCV 89 fL (80-95); MPV 11.1 fL (8.0-11.0); Platelet Count 104 10^3/uL (130-400); RBC 4.53 10^6/uL (3.93-5.22); RDW 13.8 % (11.7-14.6); RDW-SD 44.7 fL; WBC 6.54 10^3/uL (4.4-10.8)
[2024-12-03 07:45] VITALS: BP 126/70; PULSE 85; RESP 16; TEMP 36.8; O2SAT 94
[2024-12-03] MEDS: DULoxetine 30 MG CAP 60 MG PO (08:22)
[2024-12-03] MEDS: Celecoxib 100 MG CAP PO (08:23)
[2024-12-03] MEDS: Aspirin E.C. 81 MG TABEC PO (08:23)
[2024-12-03] MEDS: Simvastatin 40 MG TAB PO (08:23)
[2024-12-03] MEDS: Gabapentin 300 MG CAP PO (08:23)
[2024-12-03] MEDS: Calcium 600mg/Vit D 200U TAB 1 TAB PO (08:23)
[2024-12-03] MEDS: Losartan 50 MG TAB PO (08:24)
[2024-12-03] MEDS: Polyethylene Glycol 3350 17 GM PACKET PO (08:25)
[2024-12-03] MEDS: Enoxaparin 40 MG/0.4 ML SYR SC (08:25)
[2024-12-03] MEDS: Normal Saline Flush 10 ML SYR IVP (08:26)
[2024-12-03] MEDS: Diclofenac 1% Gel 100 GM TUBE TP ×2 (08:28→12:25)
[2024-12-03 08:33] LABS: Anion Gap 7.0 mmol/L (3-11); BUN 13 mg/dL (7-18); CO2 29.0 mmol/L (21.0-32.0); Calcium 8.7 mg/dL (8.5-10.1); Chloride 102 mmol/L (98-107); Estimated GFR 59.86 (mL/min/1.73m2); Glucose 126 mg/dL (74-106); Magnesium 1.8 mg/dL (1.8-2.4); Potassium 3.7 mmol/L (3.5-5.1); Sodium 138 mmol/L (136-145); TSH (W/Ref FT4) 3.15 uIU/mL (0.36-3.74)
--- NOTE | 2024-12-03 09:15 | PDOC.CMIN ---
Date of service: 12/03/24 Time of Service: 15:07 Care Management Initial Assmt Initial Assessment Reason for Hospitalization: altered mental status, uti Functional Status/Living Situation Patient Presentation: Pari was sitting up in bed and visiting with her sister, when CM arrived. Pari easily engages in conversation, and was pleasant to speak too. She presented to the ED for evaluation of altered mental status. Pari reports she is feeling much better than she was yesterday. At this time, she is clear with her speech and easily understood. She and her sister state they believe she is cognitively at baseline and is not having pain. Pari lives alone, in her home in [place]. She reports overall, she does well living there. She is independent with ADL's, including driving. Per Pari, she had a total hip in July. After this surgery, she participated in outpatient PT in [place]. Per PT recommendation, she is agreeable to go back. Pari is looking forward to go home and when she does, her sister will transport. CM will continue to follow. Town of Residence: [place] Resides with: Alone Significant Other/Family: Local (She has a son that is local) Natural Supports: Family Instrumental Activities of Daily Living (ADLs): Independent Activities/Hobbies/SocialSupport: Enjoys taking her sons dog outside Medications Medication Management: No Issues/Barriers identified Physical Functioning/Mobility Assistive Device: Reports she used a walker after her total hip but does not use any device at baseline Advance Directives Advance Directives: Do you have an Advance Directive: N 04/14/13, 14:46 AD On File at [facility]: N 07/29/12, 14:01 Date Asked 12/02/24 12/02/24, 13:15 AD Date Reviewed COLST On File at [facility] COLST Date Scanned Code Status Resuscitation Status DNR Portal Pt does not currently have a portal and education provided: Yes Insurance Coverage/Financial Issues Insurance: BC/BS [facility] Advantage - [id number] FINANCIAL ASST 100 - [id number] Care Team Visit Care Team Role Provider Type Ne Dooley APRN MD [facility] STAFF PHYSICIAN Mary Barton APRN Primary Care Provider NURSE PRACTITIONER InPatient [facility] Other Providers OTHER Felipe Omalley MD Emergency Provider [facility] STAFF PHYSICIAN Bradly Mcbride MD Admit Provider MD [facility] STAFF PHYSICIAN Attending Provider Discharge Potential Discharge Needs: PCP F/U Appt Anticipated Barriers to Discharge: Medical Status Patient/Family Education Needs: Review discharge instructions, discuss Ask Me Three Transportation: Private vehicle Plan: Anticipate, Pari will be discharged home and it is recommended that she will see outpatient PT, once medically ready. She will follow up with her community providers and discharge plan of care. She will transport via private vehicle by her sister. Social Determinants of Health Screening Will the Patient Participate in the Screening?: Unable to obtain Do you worry about having a steady place to live?: choose not to answer Problems where you live: no known problems Comments: patient unable to answer Health Related Social Needs Health related social needs details: unable to answer PFSH All Active Problems On deep vein thrombosis (DVT) prophylaxis (Acute) Encephalopathy acute (Acute) Acute UTI (Acute) Altered mental status (Acute) Breast cancer screening (Acute) History of total left hip arthroplasty (Acute 08/12/24) Seasonal affective disorder (Acute) Intercostal neuralgia (Acute) left sided anterior pain reproducible on exam, nonexertional Hip pain, right (Acute) Nail dystrophy (Acute) Onychomycosis (Acute) Acid reflux (Chronic) Thyroid nodule (Acute) Arthritis of left knee (Acute) Osteoarthritis of right hip (Acute) POCUS INJECTION 04/02/24 Tubular adenoma (Acute) Hip pain, bilateral (Acute) Pain in right foot (Acute) Trigger thumb of left hand (Acute) Pain in joint of left knee (Acute) Pain in right wrist (Acute) Pain, joint, knee, right (Acute) 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 (Acute) Screening for malignant neoplasm of breast (Acute) Presence of total knee joint prosthesis (Acute) Prediabetes (Acute) Snoring (Acute) Anesthesia of skin (Acute) Low back pain (Acute) Disorder of hip joint (Acute) Ankylosis of joint (Acute) Idiopathic osteoarthritis (Acute) Steatosis of liver (Acute) Intestinal obstruction (Acute) Chronic sinusitis (Acute) Essential hypertension (Acute) Rheumatic tricuspid valve regurgitation (Acute) Trigeminal neuralgia (Acute) Migraine with aura (Acute) Migraine (Chronic) Obstructive sleep apnea syndrome (Chronic) Using CPAP Recurrent major depression (Acute) Mild major depression (Acute) Hypopituitarism (Acute) Hypothyroidism (Chronic) Polyp of colon (Acute) Onychomycosis due to dermatophyte (Acute) Hypertension (Chronic) Hyperlipemia (Acute) Effusion, left knee (Acute) Obesity, morbid, BMI 40.0-49.9 (Chronic) Osteoarthritis of left knee (Chronic) DEPO INJECTION: 05/16/21 Painful total knee replacement, right (Acute) Arthrofibrosis of total knee arthroplasty (Acute) Unilateral primary osteoarthritis, left knee (Acute) Depo-Medrol injection: 11/03/2020, 05/12/2020 Femoroacetabular impingement of both hips (Acute) Status post cataract extraction and insertion of intraocular lens of right eye (Chronic 08/18/18) Diplopia (Acute) Head ache (Acute) Status post cataract extraction and insertion of intraocular lens of left eye (Chronic 08/04/18) Medical History Laryngitis Dyspnea Denies Acute pharyngitis Edema Localized edema Malaise Dizziness and giddiness Intractable pain Ambulatory dysfunction Inability to ambulate due to left knee Weakness Depression Obesity Blood glucose elevated Enlarged liver Tricuspid regurgitation History of colon cancer Cortical cataract of left eye Posterior subcapsular age-related cataract of left eye Nuclear sclerotic cataract of left eye Surgical History H/O total hysterectomy with bilateral salpingo-oophorectomy (BSO) Status post total right knee replacement followed by open synovectomy then revision Status post cataract extraction Bilateral Hx of colonoscopy History of hemicolectomy Family History Maternal Grandfather Alcohol use disorder Maternal Aunt Cancer Maternal Uncle Lung cancer Mother Hypertension Heart disease Diabetes Dementia Father Brain tumor Brother Hypertension Son Stroke Maternal Grandmother , from old age Dementia Paternal Grandfather , - horse accident No problems noted. Social History Smoking/Tobacco Use Status: Former Tobacco Use Quit Date: 05/27/04 Second Hand Exposure: No Smoking risk assessment performed?: Yes Alcohol Intake: current Alcohol Intake frequency: holidays/special occasions only Drug use: Rarely Substance use type: marijuana Details: alcohol: unknown. Marijuana: 2-3 years Adopted: No Caregiver/Support person: No Foster care: No Household members: none Housing: apartment Number of Children: 1 number of grandchildren: 3 Communication Needs: None Education Level: college Details: associates degree Do you need help understanding health information?: Never current occupation: retired Pets and animals: No Do you think of yourself as: straight/heterosexual Current gender identity: female What is your relationship status?: How often do you talk on the phone with friends or family?: three or more times per week How often do you get together with friends or relatives?: three or more times per week Do you belong to any clubs or organized social groups?: no Panel score (0-1 are the most socially isolated patients): 1 What type of physical activity do you participate in: walking Duration: < 15 minutes/day Frequency: daily Special kana needs: No Seatbelt use: always Helmet use: No Drive intox or ride w/intox driver merchandiser: No Do you feel safe at home: Yes Do you feel safe in your relationship?: Yes Readmission Within the Past 30 Days Yes or No: No
--- NOTE | 2024-12-03 09:34 | IN_ITS ---
PT Notes Visit Reasons: altered mental status, uti Physical Therapy Inpatient Initial Evaluation Date: 12/03/2024 Referring Doctor: Ne Dooley NP PT Orders: PT CONSULT: Safety Consult for D/C Precautions: IV access R UE Patient Profile/Admitting Diagnosis: Pt is 74 yo female presented to ED with altered Mental status. Work up revelaed (+) UTI pt treated with IV antibiotic and fluids. Pt admitted to Med Surg for further medical management. PMHX: Encephalopathy acute (Acute) Acute UTI (Acute) Altered mental status (Acute) Breast cancer screening (Acute) History of total left hip arthroplasty (Acute 08/12/24) Seasonal affective disorder (Acute) Intercostal neuralgia (Acute) left sided anterior pain reproducible on exam, nonexertionalHip pain, right (Acute) Nail dystrophy (Acute) Onychomycosis (Acute) Acid reflux (Chronic) Thyroid nodule (Acute) Arthritis of left knee (Acute) Osteoarthritis of right hip (Acute) POCUS INJECTION 04/02/24Tubular adenoma (Acute) Hip pain, bilateral (Acute) Pain in right foot (Acute) Trigger thumb of left hand (Acute) Pain in joint of left knee (Acute) Pain in right wrist (Acute) Pain, joint, knee, right (Acute) 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 (Acute) Screening for malignant neoplasm of breast (Acute) Presence of total knee joint prosthesis (Acute) Prediabetes (Acute) Snoring (Acute) Anesthesia of skin (Acute) Low back pain (Acute) Disorder of hip joint (Acute) Ankylosis of joint (Acute) Idiopathic osteoarthritis (Acute) Steatosis of liver (Acute) Intestinal obstruction (Acute) Chronic sinusitis (Acute) Essential hypertension (Acute) Rheumatic tricuspid valve regurgitation (Acute) Trigeminal neuralgia (Acute) Migraine with aura (Acute) Migraine (Chronic) Obstructive sleep apnea syndrome (Chronic) Using CPAPRecurrent major depression (Acute) Mild major depression (Acute) Hypopituitarism (Acute) Hypothyroidism (Chronic) Polyp of colon (Acute) Onychomycosis due to dermatophyte (Acute) Hypertension (Chronic) Hyperlipemia (Acute) Effusion, left knee (Acute) Obesity, morbid, BMI 40.0-49.9 (Chronic) Osteoarthritis of left knee (Chronic) DEPO INJECTION: 05/16/21Painful total knee replacement, right (Acute) Arthrofibrosis of total knee arthroplasty (Acute) Unilateral primary osteoarthritis, left knee (Acute) Depo-Medrol injection: 11/03/2020, 05/12/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 impingement of both hips (Acute) Status post cataract extraction and insertion of intraocular lens of right eye (Chronic 08/18/18) Diplopia (Acute) Head ache (Acute) Status post cataract extraction and insertion of intraocular lens of left eye (Chronic 08/04/18) Medical History Laryngitis Dyspnea DeniesAcute pharyngitis Edema Localized edema Malaise Dizziness and giddiness Intractable pain Ambulatory dysfunction Inability to ambulate due to left knee Weakness Depression Obesity Blood glucose elevated Enlarged liver Tricuspid regurgitation History of colon cancer Cortical cataract of left eye Posterior subcapsular age-related cataract of left eye Nuclear sclerotic cataract of left eye Surgical History H/O total hysterectomy with bilateral salpingo-oophorectomy (BSO) Status post total right knee replacement followed by open synovectomy then revisionStatus post cataract extraction BilateralHx of colonoscopy History of hemicolectomy Social History/Home Situation:Pt resides alone in an apt with ramp to enter. Pt independent ADL, Ambulation with and without cane. Pt drives, shops, Equipment Owned/DME: FWW, cane, walking poles Subjective: Patient reports she feels better than she did yesterday but still a little confused Objective: [] General Observation: Semireclined in bed IV infusing right upper extremity, sister at bedside Mental Status: Alert and oriented x 3, difficulty recalling the events that led to hospitalization. Weepy at times, able to follow instructions agreeable to participate in evaluation Pain: denies ROM: [] BUE: WNL Right Lower Extremity: WFL Left Lower Extremity: WFL Strength: [] BUE 5/5 Right Lower Extremity: Grossly 4/5 Left Lower Extremity: Grossly 4/5 except hip 3+/5 Sensation: Intact Bed Mobility/Transfers: [] Supine to sit independent Sit to stand independent Stand to sit independent Bed to chair supervision Gait: SBA with FWW 50 feet with wheelchair follow for safety once standing rest. Balance: [] Static Sitting: Normal Dynamic Sitting: Normal Static Standing: Good Dynamic Standing: Fair plus Special Tests: [] Mobility Limitations Standardized Measure [] [facility] AM-PAC 6 clicks Basic Mobility Inpatient Short Form: [] Raw Score: 22 CMS Score: 20.91% Informed Consent/Education: Patient instructed in purpose of PT consult. Assessment: Patient presents with generalized weakness status post UTI. Patient continues with some word finding and recall of the events that led to hospitalization/ altered mental status. Patient is a 74-year-old female who presents with clinical signs and symptoms consistent with current/admitting diagnoses that have resulted to mobility limitations, gait instability, generalized weakness, and impairment of motor control as demonstrated by the following impairment level findings: 1. Decreased strength to BLE major muscle groups 2. Impaired standing balance 3. Impaired functional activity tolerance Impairments are contributing to the following functional limitations: 1. Inability to safely ambulate without assistive device 2. Increase completion time for mobility ADL performance 3. Increased fall risk Patient is assessed as a low complexity based on the following: History: 74-year-old female with impairment level findings, functional limitations, and past medical history as indicated above Examination: Demonstrable impairment in strength, balance, and mobility level with underlying impairments and functional limitations as documented above Presentation: stable Decision Making: low Goals: 1.independent transfers 2 independent ambulation >200 feet with LRD Plan of Care/Treatment Plan: 1?2 sessions for functional transfers/ambulation balance retraining prior to discharge to home DISCHARGE RECOMMENDATIONS: Home with HHPT vs Outpatient PT for left hip strengthening /pain mgmgt TREATMENT CODE/TIME: [id number]/ [id number] Thank you for the opportunity to participate in the care of this patient. Nydia Huertas, PT [facility]
[2024-12-03] MEDS: Omeprazole 20 MG CAPCR PO (09:39)
[2024-12-03 13:45] VITALS: BP 120/78; PULSE 80; RESP 18; TEMP 36.1; O2SAT 92
--- NOTE | 2024-12-03 14:33 | PGE_ITS ---
Date of Service Date of service: 12/03/24 Time of Service: 14:33 Assessment and Plan Assessment and plan (1) Encephalopathy acute: Status: Acute Assessment and plan: most likely infectious d/t point 2 Not meeting sepsis criteria Will continue to monitor (2) Acute UTI: Status: Acute Assessment and plan: on ceftriaxone Urine Cx pending (3) Osteoarthritis of left knee: Status: Chronic Assessment and plan: Scheduled acetaminophen and home medicine regimen will hold neurotin until improved mentation achieved (4) Hypothyroidism: Status: Chronic Assessment and plan: On home meds Labs in AM (5) Ambulatory dysfunction: Assessment and plan: PT consult (6) Hypertension: Status: Chronic Assessment and plan: on home meds (7) On deep vein thrombosis (DVT) prophylaxis: Status: Acute Assessment and plan: on LMWH (8) Discharge planning issues: Status: Deleted Assessment and plan: lived in an assited living facility - patient could not confirm - CM to f/u D/c as per PT recommendation when ready Discussed with Dr. Mcbride Exam Narrative Exam Narrative: obese body habitus, no acute distress, A & oriented to self, no focal neurlogical deficit, clear lungs, regular heart, no murmur, abdomen is large, non-distended, soft and non-tender, moves all 4 ext, no CVA tnederness Objective Last Vital Signs Temp 36.1 C L 12/03/24 13:45 Pulse 80 12/03/24 13:45 Resp 18 12/03/24 13:45 BP 120/78 12/03/24 13:45 Pulse Ox 92 12/03/24 13:45 Laboratory Results - last 24 hr 12/02/24 12/02/24 12/02/24 13:31 14:05 14:43 WBC RBC Hgb Hct MCV MCH MCHC RDW Plt Count MPV Immature Gran % Neutrophils % Lymphocytes % Monocytes % Eosinophils % Basophils % Nucleated RBC % Absolute Neutrophils Absolute Lymphocytes Absolute Monocytes Absolute Eosinophils Absolute Basophils Sodium Potassium Chloride Carbon Dioxide Anion Gap BUN Creatinine Est GFR (CKD-EPI 2020) Glucose Calcium Magnesium Troponin I Cancelled 7 TSH Urine Color Yellow Urine Clarity Cloudy Urine pH 6.0 Ur Specific [place] 1.025 Urine Protein >=300 H Urine Ketones Trace H Urine Blood Moderate H Urine Nitrite Positive H Urine Bilirubin Small H Urine Urobilinogen 1.0 H Ur Leukocyte Esterase Small H Urine RBC 0-2 Urine WBC 10-20 H Ur Epithelial Cells Rare Urine Crystals Negative Urine Bacteria Many Urine Casts Negative Urine Mucus Negative Ur Culture Indicated? Yes Urine Glucose Negative 12/03/24 12/03/24 06:46 07:49 WBC 6.54 RBC 4.53 Hgb 12.8 Hct 40.1 MCV 89 MCH 28.3 MCHC 31.9 L RDW 13.8 Plt Count 104 L MPV 11.1 H Immature Gran % 0.8 Neutrophils % 77.2 Lymphocytes % 10.2 Monocytes % 10.1 Eosinophils % 1.1 Basophils % 0.6 Nucleated RBC % 0.0 Absolute Neutrophils 5.05 Absolute Lymphocytes 0.67 L Absolute Monocytes 0.66 Absolute Eosinophils 0.07 Absolute Basophils 0.04 Sodium 138 Potassium 3.7 Chloride 102 Carbon Dioxide 29.0 Anion Gap 7.0 BUN 13 Creatinine 1.0 Est GFR (CKD-EPI 2020) 59.86 Glucose 126 H Calcium 8.7 Magnesium 1.8 Troponin I TSH 3.15 Urine Color Urine Clarity Urine pH Ur Specific [place] Urine Protein Urine Ketones Urine Blood Urine Nitrite Urine Bilirubin Urine Urobilinogen Ur Leukocyte Esterase Urine RBC Urine WBC Ur Epithelial Cells Urine Crystals Urine Bacteria Urine Casts Urine Mucus Ur Culture Indicated? Urine Glucose
--- NOTE | 2024-12-03 14:36 | CHAPLAIN ---
Pari was resting in bed when I visited this morning. Her sister is with her. She seems calm and comfortable. Pari came to the ED yesterday after friends found her in her apartment, very tearful and unable to explain what was going on for her. I explained my role and offered support.
[2024-12-03] MEDS: Fosfomycin Tromethamine 3 GM PACKET PO (14:53)
--- NOTE | 2024-12-03 15:21 | W.PM.DS.N ---
Date of service: 12/03/24 Time of Service: 15:21 DS: Diagnosis Discharge Diagnosis (1) Encephalopathy acute: Status: Acute (2) Acute UTI: Status: Acute (3) Osteoarthritis of left knee: Status: Chronic (4) Hypothyroidism: Status: Chronic (5) Ambulatory dysfunction: (6) Hypertension: Status: Chronic (7) On deep vein thrombosis (DVT) prophylaxis: Status: Acute (8) Discharge planning issues: Status: Deleted Discharge Plan Disposition Patient Disposition: Home Condition: Improving Discharge Details Reason For Visit: altered mental status, uti Admit Date/Time: 12/02/24 15:19 Admit Provider: Bradly Mcbride Attending Provider: Bradly Mcbride Primary Care Provider: Mary Barton Hospital Course Hospital Course: This 74 years old female patient with past medical history of osteoarthritis of both knees with right knee replacement morbidly obese, hypertension, hypothyroidism, hyperlipidemia, depression presented to the ED on 12/02/24 via EMS after being found tearful and confused at home. EKG showed no signs of coronary artery occlusion but showed sinus tachycardia heart rate 111. Troponins were negative X2. Chest CT was negative for pulmonary emboli or other acute abnormality. Head CT was negative for acute findings. Urinalysis showed positive UTI w/o dysuria, pelvic discomfort or CVA tenderness. Treatment was initiated with ceftriaxone IV. Blood work was unremarkable except for slight elevation in creatinine that might point to dehydration. The patient remained mentally altered and was admitted to the medical surgical floor by the hospitalist service for evaluation management of infectious encephalopathy most likely due to urinary tract infection and dehydration. Urine culture positive for E. Coli and the patient received one dose of oral fosfomycin. The patient was back to baseline mentation and baseline mobilty with walker as per PT evaluation. On the day of discharged the patient was hemodynamically stable, afebrile, tolerating enteral intake. Follow-up with PCP within 7 days of discharge please. Discussed with Dr. Mcbride Home Meds and New Rx's Prescriptions: New polyethylene glycol 3350 [Miralax] 17 gram/dose powder 17 g PO DAILY Qty: 119 0RF Rx Instructions: Until BM then PRN docusate sodium [Colace] 100 mg capsule 100 mg PO TID Qty: 20 0RF Rx Instructions: Until BM then PRN Continued calcium carbonate-vitamin D3 500 mg-10 mcg (400 unit) tablet 1 tab PO DAILY rizatriptan [Maxalt-RESEARCH ASSISTANT MEMBER] 5 mg tablet,disintegrating 5 mg PO .COMPLEX PRN Patient Comments: months Rx Instructions: 5 mg orally Take one tab at onset of headache, may repeat once in 2-4 hours if headache does not improve or recurs. Max daily dose = 2 PRN; Vitamin D2-Vitamin K1 See Rx Instructions PO DAILY Rx Instructions: Take one orally daily; hydrochlorothiazide 12.5 mg tablet 12.5 mg PO DAILY Qty: 90 3RF losartan [Cozaar] 50 mg tablet 50 mg PO DAILY Qty: 90 3RF ketoconazole 2 % cream 1 applic topical DAILY Qty: 120 6RF Rx Instructions: Apply to toenails once daily levothyroxine 50 mcg tablet 50 mcg PO DAILY aspirin 81 mg tablet,delayed release (DR/EC) 81 mg PO DAILY celecoxib 100 mg capsule 100 mg PO QAM diclofenac sodium 1 % gel 2 g topical QID Qty: 100 0RF omeprazole 20 mg capsule,delayed release(DR/EC) See Rx Instructions .ROUTE .COMPLEX Qty: 30 3RF Dose Instruction: TAKE ONE CAPSULE BY MOUTH EVERY DAY TAKE 2 HOURS AFTER A MEAL Rx Instructions: TAKE ONE CAPSULE BY MOUTH EVERY DAY TAKE 2 HOURS AFTER A MEAL simvastatin 40 mg tablet 40 mg PO DAILY Qty: 90 3RF celecoxib 200 mg capsule See Rx Instructions .ROUTE .COMPLEX Qty: 60 3RF Dose Instruction: TAKE ONE CAPSULE BY MOUTH EVERY DAY AT BEDTIME Rx Instructions: TAKE ONE CAPSULE BY MOUTH EVERY DAY AT BEDTIME acetaminophen 500 mg tablet 1,000 mg PO TID Qty: 90 3RF duloxetine 60 mg capsule,delayed release(DR/EC) 60 mg PO BID Patient Comments: TAKE ONE CAPSULE BY MOUTH TWICE A DAY gabapentin 300 mg capsule 300 mg PO BID Rx Instructions: TAKE ONE CAPSULE BY MOUTH TWICE A DAY Discharge Instructions Referrals: Mary Barton APRN [Primary Care Provider, Family Practice] Referral Note: Follow-up within 7 days of discharge Activity:: Activity as Tolerated Equipment/Supplies:: Walker Diet:: heart healthy Discharge Orders Discharge Orders: Discharge Order (Routine); Ordered 12/03/24 Ordered By: Ne Dooley DS: Summary Time Spent with Patient providing and/or coordinating discharge services: Greater than 30 minutes Status at Discharge Functional status at discharge: independent ambulation Overall status at discharge: patient is progressing back to baseline Mental Status: mental status grossly normal Speech and Movement: speech and movement normal Mood: congruent mood Affect: normal affect Quality:SDOH Health Related Social Needs: Health related social needs education Health related social needs details unable to answer Health related social needs details: unable to answer Exam Narrative Exam Narrative: obese body habitus, no acute distress, A & oriented X4 , no focal neurological deficit, clear lungs, regular heart, no murmur, abdomen is large, non-distended, soft and non-tender, moves all 4 ext, no CVA tenderness Psych Mental Status: mental status grossly normal Speech and Movement: speech and movement normal Mood: congruent mood Affect: normal affect DS: Data Vitals/I&O Vitals and I&O: Vital Signs Temperature 36.1 C L 12/03/24 13:45 Temperature Source Temporal Artery Scan 12/03/24 13:45 Pulse 80 12/03/24 13:45 Pulse Rhythm Regular 12/02/24 18:34 Pulse 112 H 12/02/24 18:10 Respiratory Rate 18 12/03/24 13:45 Respiratory Effort Normal 12/02/24 18:34 Respiratory Depth Normal 12/02/24 18:34 Respiratory Pattern Normal 12/02/24 18:34 Blood Pressure 120/78 12/03/24 13:45 Blood Pressure Mean 92 12/03/24 13:45 Blood Pressure Position Supine 12/02/24 12:16 Pulse Oximetry 92 12/03/24 13:45 Oxygen Delivery Method Room Air 12/03/24 13:45 Oxygen Flow Rate 0 12/03/24 13:45 Pain Level 0 12/03/24 07:45 Comment RA 12/02/24 15:50 Intake & Output 12/02/24 12/03/24 12/03/24 23:59 11:59 23:59 Intake Total 50 / 50 Output Total 200 / 200 1600 / 1600 Balance -150 / -150 -1600 / -1600 Weight 112 kg Intake: IV 50 / 50 Output: Urine 200 / 200 1600 / 1600 Other: Urine Color Straw Yellow Urine Appearance Clear Clear Urine Odor Strong Strong Comment voided in toilet. Data Completed and Pending Labs on day of discharge: Labs from last 24 hours 12/03/24 12/03/24 07:49 06:46 WBC 6.54 RBC 4.53 Hgb 12.8 Hct 40.1 MCV 89 MCH 28.3 MCHC 31.9 L RDW 13.8 Plt Count 104 L MPV 11.1 H Immature Gran % 0.8 Neutrophils % 77.2 Lymphocytes % 10.2 Monocytes % 10.1 Eosinophils % 1.1 Basophils % 0.6 Nucleated RBC % 0.0 Absolute Neutrophils 5.05 Absolute Lymphocytes 0.67 L Absolute Monocytes 0.66 Absolute Eosinophils 0.07 Absolute Basophils 0.04 Sodium 138 Potassium 3.7 Chloride 102 Carbon Dioxide 29.0 Anion Gap 7.0 BUN 13 Creatinine 1.0 Est GFR (CKD-EPI 2020) 59.86 Glucose 126 H Calcium 8.7 Magnesium 1.8 TSH 3.15 Preliminary micro results at discharge 12/02/24 14:43 Urine - Reflex from Ua Urine Culture - Preliminary Escherichia coli PFSH All Active Problems (Updated 12/02/24 @ 18:17 by Ne Dooley APRN) On deep vein thrombosis (DVT) prophylaxis (Acute) Encephalopathy acute (Acute) Acute UTI (Acute) Altered mental status (Acute) Breast cancer screening (Acute) History of total left hip arthroplasty (Acute 08/12/24) Seasonal affective disorder (Acute) Intercostal neuralgia (Acute) left sided anterior pain reproducible on exam, nonexertional Hip pain, right (Acute) Nail dystrophy (Acute) Onychomycosis (Acute) Acid reflux (Chronic) Thyroid nodule (Acute) Arthritis of left knee (Acute) Osteoarthritis of right hip (Acute) POCUS INJECTION 04/02/24 Tubular adenoma (Acute) Hip pain, bilateral (Acute) Pain in right foot (Acute) Trigger thumb of left hand (Acute) Pain in joint of left knee (Acute) Pain in right wrist (Acute) Pain, joint, knee, right (Acute) 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 (Acute) Screening for malignant neoplasm of breast (Acute) Presence of total knee joint prosthesis (Acute) Prediabetes (Acute) Snoring (Acute) Anesthesia of skin (Acute) Low back pain (Acute) Disorder of hip joint (Acute) Ankylosis of joint (Acute) Idiopathic osteoarthritis (Acute) Steatosis of liver (Acute) Intestinal obstruction (Acute) Chronic sinusitis (Acute) Essential hypertension (Acute) Rheumatic tricuspid valve regurgitation (Acute) Trigeminal neuralgia (Acute) Migraine with aura (Acute) Migraine (Chronic) Obstructive sleep apnea syndrome (Chronic) Using CPAP Recurrent major depression (Acute) Mild major depression (Acute) Hypopituitarism (Acute) Hypothyroidism (Chronic) Polyp of colon (Acute) Onychomycosis due to dermatophyte (Acute) Hypertension (Chronic) Hyperlipemia (Acute) Effusion, left knee (Acute) Obesity, morbid, BMI 40.0-49.9 (Chronic) Osteoarthritis of left knee (Chronic) DEPO INJECTION: 05/16/21 Painful total knee replacement, right (Acute) Arthrofibrosis of total knee arthroplasty (Acute) Unilateral primary osteoarthritis, left knee (Acute) Depo-Medrol injection: 11/03/2020, 05/12/2020 Femoroacetabular impingement of both hips (Acute) Status post cataract extraction and insertion of intraocular lens of right eye (Chronic 08/18/18) Diplopia (Acute) Head ache (Acute) Status post cataract extraction and insertion of intraocular lens of left eye (Chronic 08/04/18) Medical History Laryngitis Dyspnea Denies Acute pharyngitis Edema Localized edema Malaise Dizziness and giddiness Intractable pain Ambulatory dysfunction Inability to ambulate due to left knee Weakness Depression Obesity Blood glucose elevated Enlarged liver Tricuspid regurgitation History of colon cancer Cortical cataract of left eye Posterior subcapsular age-related cataract of left eye Nuclear sclerotic cataract of left eye Surgical History H/O total hysterectomy with bilateral salpingo-oophorectomy (BSO) Status post total right knee replacement followed by open synovectomy then revision Status post cataract extraction Bilateral Hx of colonoscopy History of hemicolectomy Family History Maternal Grandfather Alcohol use disorder Maternal Aunt Cancer Maternal Uncle Lung cancer Mother Hypertension Heart disease Diabetes Dementia Father Brain tumor Brother Hypertension Son Stroke Maternal Grandmother , from old age Dementia Paternal Grandfather , - horse accident No problems noted. Social History Smoking/Tobacco Use Status: Former Tobacco Use Quit Date: 05/27/04 Second Hand Exposure: No Smoking risk assessment performed?: Yes Alcohol Intake: current Alcohol Intake frequency: holidays/special occasions only Drug use: Rarely Substance use type: marijuana Details: alcohol: unknown. Marijuana: 2-3 years Adopted: No Caregiver/Support person: No Foster care: No Household members: none Housing: apartment Number of Children: 1 number of grandchildren: 3 Communication Needs: None Education Level: college Details: associates degree Do you need help understanding health information?: Never current occupation: retired Pets and animals: No Do you think of yourself as: straight/heterosexual Current gender identity: female What is your relationship status?: How often do you talk on the phone with friends or family?: three or more times per week How often do you get together with friends or relatives?: three or more times per week Do you belong to any clubs or organized social groups?: no Panel score (0-1 are the most socially isolated patients): 1 What type of physical activity do you participate in: walking Duration: < 15 minutes/day Frequency: daily Special kana needs: No Seatbelt use: always Helmet use: No Drive intox or ride w/intox patrol driver: No Do you feel safe at home: Yes Do you feel safe in your relationship?: Yes Time Spent with Patient Time Spent with Patient: >85 minutes Time was spent: preparing to see the patient(eg.review tests), obtaining and/or reviewing separately otained hiistory, ordering medications,tests, procedures, referring, communicating with other health director of healthcare systems, indepentently interpreting results, counseling the patient and care coordination
--- NOTE | 2024-12-03 15:48 | PDOC.CMDIS ---
Date of service: 12/03/24 Time of Service: 15:48 LACE Index Scoring Tool Questions: Length of Stay (in days): 1 Was the patient admitted via the E.D.?: Yes E.D. Visits: 1 Answers: Total Score: 5 Risk of Readmission: Low Risk Care Management Discharge Plan Reason for Hospitalization: altered mental status Discharge Plan: Pari will be discharged home and it is recommended that she will see outpatient PT. She will follow up with her community providers and discharge plan of care. She will transport via private vehicle by her sister. Patient/Family Education Needs: Review discharge instructions and plan to follow up after discharge. Discuss ask me three. Services Needed at Discharge: Outpatient Therapy SDOH Health Related Social Needs: Health related social needs education Health related social needs details unable to answer Health related social needs details: unable to answer
--- NOTE | 2024-12-03 16:04 | PT.INTREAT ---
PT Notes Visit Reasons: altered mental status, uti Inpatient Physical Therapy Treatment Note [facility] Date: 12/03/2024 PRECAUTIONS: IV access infusing right upper extremity SUBJECTIVE: Patient reports she feels much clearer and is able to recall some events prior to hospitalization OBJECTIVE: Presented supine in bed sister present ? PAIN: Left hip twinges VITALS: ?Monitored by nursing Therapeutic Activities (97456): Direct one-on-one instruction in dynamic activities to improve functional performance. ? BED MOBILITY/TRANSFERS? Rolling L/R: Independent with rails Supine-sit: Independent ? Sit-supine: Independent? Sit-stand: Independent ? Stand-sit: Independent ? Bed-Chair: Independent? Chair-bed: Independent Provided skilled cues and instruction on performance and technique throughout. Patient education regarding pacing and breathing techniques to maximize activity tolerance? Ambulation ? Assistive Device: FWW? Weight bearing: Full Assist: SBA? Distance: 60 feet ? Deviation: Reduced step length bilaterally ? ASSESSMENT:?Patient demonstrates slight NICOLE with functional mobility with FWW. Continue to recommend patient to utilize FWW upon discharge for long distances until functional activity tolerance improves. Discussed with patient and her sister benefits of outpatient PT for left hip pain management and strengthening. Patient agreeable to pursue this in the future PLAN: Continue plan of care until medically appropriate for discharge TREATMENT CODE/TIME: 33101/2:25 PM?2:50 PM DISCHARGE RECOMMENDATION: Home with outpatient PT in the future for left hip strengthening/pain management
== END 2024-12-03 16:20 | disposition home or self-care (01) ==
LOC: ER 15:09 → MS 18:30
PROVIDERS: Admitting Provider Family Medicine; Emergency Provider Emergency Medicine; PCP Nurse Practitioner Family; Responsible Provider Nurse Practitioner Acute Care; Visit Provider Family Medicine
DX: N39.0 Urinary tract infection, site not specified (principal); G93.40 Encephalopathy, unspecified; M17.12 Unilateral primary osteoarthritis, left knee; R26.2 Difficulty in walking, not elsewhere classified; E03.9 Hypothyroidism, unspecified; I10 Essential (primary) hypertension; Z79.899 Other long term (current) drug therapy; R07.89 Other chest pain; E66.01 Morbid (severe) obesity due to excess calories; Z68.42 Body mass index [BMI] 45.0-49.9, adult; Z66 Do not resuscitate; Z96.651 Presence of right artificial knee joint; R00.0 Tachycardia, unspecified; Z96.642 Presence of left artificial hip joint; G47.33 Obstructive sleep apnea (adult) (pediatric); K76.0 Fatty (change of) liver, not elsewhere classified; G43.E09 Chronic migraine with aura, not intractable, without status migrainosus; E23.0 Hypopituitarism; B96.20 Unspecified Escherichia coli [E. coli] as the cause of diseases classified elsewhere
CPT/HCPCS: 00123; 36415; 71275; 80048; 80053; 83690; 87077; 93005; 96365; 96366; 96372; 97161; 97530; 99285; J1650; 70450; 71045; 81003; 81015; 83735; 83880; 84443; 84484; 85025; 85610; 87086; 87186; 93010; 99223; 99239; G0378; J0696; J3490

== ENCOUNTER → 2024-12-23 09:32 | Outpatient (BNVA) | payer MEDICARE, SELFPAY | PROVIDERS: PCP Nurse Practitioner Family; Referring Provider Nurse Practitioner Family; Visit Provider Surgery | DX: Z12.11 Encounter for screening for malignant neoplasm of colon (principal); Z85.038 Personal history of other malignant neoplasm of large intestine | CPT/HCPCS: S0285 ==

== ENCOUNTER → 2025-01-12 10:18 | Outpatient (BNVA) | payer MEDICARE, SELFPAY | PROVIDERS: PCP Nurse Practitioner Family; Referring Provider Nurse Practitioner Family; Visit Provider Podiatrist | DX: B35.1 Tinea unguium (principal); L60.3 Nail dystrophy; M76.822 Posterior tibial tendinitis, left leg; M76.812 Anterior tibial syndrome, left leg | CPT/HCPCS: 99213 ==

== ENCOUNTER 2025-01-18 06:54 | Day surgery (SDC) | payer MEDICARE, SELFPAY ==
[2025-01-18 07:17] VITALS: BP 133/82; PULSE 100; RESP 20; TEMP 36.6; O2SAT 94
[2025-01-18] MEDS: Lactated Ringers 1,000 ML 80 ML IV (07:42)
--- NOTE | 2025-01-18 08:26 | ANES.PREOP_ITS ---
General Info Date of Service Date Performed: 01/18/25 Height: 5 ft 2 in Weight: 106.8 kg Body Mass Index (BMI): 43.0 Surgical Procedure: Operation Date: 01/18/25 08:50 Proposed Procedure Side Surgeon michael Black MD Meds Allergies and Home Medications Allergies Allergy/AdvReac Type Severity Reaction Status Date / Time nickel (Nickel) Allergy Mild Skin Rash Verified 01/18/25 07:06 sulfamethoxazole (From AdvReac Unknown Nausea Verified 01/18/25 07:06 Bactrim) trimethoprim (From Bactrim) AdvReac Unknown Nausea Verified 01/18/25 07:06 aripiprazole AdvReac Dizziness/L Verified 01/18/25 07:06 ighthead bupropion (From Wellbutrin) AdvReac CONFUSION Verified 01/18/25 07:06 Home Medication ?Medication ?Instructions ?Recorded Vitamin D2-Vitamin K1 See Rx Instructions PO DAILY 12/23/23 calcium 500 mg (as 1 tab PO DAILY 12/23/23 carbonate)-vitamin D3 10 mcg (400 unit) tablet rizatriptan 5 mg disintegrating 5 mg PO .COMPLEX PRN 0 12/23/23 tablet (Maxalt-PIPELINE GANG SUPERVISOR) diclofenac sodium 1 % topical gel 2 g topical QID #100 grams 01/21/24 ketoconazole 2 % topical cream 1 applic topical DAILY #120 grams 06/02/24 losartan 50 mg tablet (Cozaar) 50 mg PO DAILY #90 tab- caps 07/07/24 acetaminophen 500 mg tablet 1,000 mg (2 x 500 mg) PO T ID #90 08/12/24 tabs aspirin 81 mg tablet,delayed 81 mg PO DAILY 09/08/24 release celecoxib 100 mg capsule 100 mg PO QAM 09/08/24 Held on 01/14/25. Instructions: Changed by Provider simvastatin 40 mg tablet 40 mg PO DAILY cholesterol # 90 10/20/24 tab-caps celecoxib 200 mg capsule See Rx Instructions .Route 0 11/11/24 .COMPLEX #60 caps duloxetine 60 mg capsule,delayed 60 mg PO BID 12/02/24 release polyethylene glycol 3350 17 17 g PO DAILY #119 grams 0 12/03/24 gram/dose oral powder (Miralax) omeprazole 20 mg capsule,delayed See Rx Instructions . Route 12/04/24 release .COMPLEX #30 caps gabapentin 300 mg capsule 300 mg PO BID #180 caps 11/25 09/18 hydrochlorothiazide 12.5 mg tablet 12.5 mg PO DAILY #9 0 tabs 12/21/24 levothyroxine 50 mcg tablet 50 mcg PO DAILY #90 tabs 0 01/04/25 Current Visit Medications: Current Medications Generic Name Dose Route Start Last Admin Trade Name Daleq PRN Reason Stop Dose Admin Ringer's Solution 1,000 mls @ 80 mls/hr 01/18/25 06:00 01/18/25 07:42 IV 02/14/25 23:59 80 mls/hr INFUSION FELY Administration IV Miscellaneous Supplies 1 each 01/18/25 06:00 Iv Access IV 02/14/25 23:59 DIRECTED FELY Sodium Biphosphate/Sodium Phosphate 133 ml 01/18/25 06:00 Na Phosphate Enema-Adult 133 Ml Btl MD 02/14/25 23:59 DIRECTED PRN Sodium Chloride 0 ml 01/18/25 06:00 Normal Saline Flush 10 Ml Syr IV 02/14/25 23:59 PRN PRN Sodium Chloride 0 ml 01/18/25 06:00 Normal Saline 10 Ml Vial IJ 02/14/25 23:59 DIRECTED PRN Sterile Water 0 ml 01/18/25 06:00 Water,Injection,Sterile 10 Ml Vial IJ 02/14/25 23:59 DIRECTED PRN PFSH Active Problems Active Problems: Problem Status Onset Code Encounter for colonoscopy due to history of colon cancer Acute Z12.11, Z85.038 Terrell's thyroiditis Acute E06.3 Multinodular thyroid Acute E04.2 Acute UTI Acute N39.0 Altered mental status Acute R41.82 Breast cancer screening Acute Z12.39 History of total left hip arthroplasty Acute 08/12/24 Z96.642 Seasonal affective disorder Acute F33.8 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 Hip pain, right Acute M25.551 Nail dystrophy Acute L60.3 Onychomycosis Acute B35.1 Acid reflux Chronic K21.9 Thyroid nodule Acute E04.1 Arthritis of left knee Acute M17.12 Osteoarthritis of right hip Acute M16.11 Tubular adenoma Acute D36.9 Hip pain, bilateral Acute M25.551, M25.552 Pain in right foot Acute M79.671 Trigger thumb of left hand Acute M65.312 Pain in joint of left knee Acute M25.562 Pain in right wrist Acute M25.531 Pain, joint, knee, right Acute M25.561 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 Acute Z90.712 Screening for malignant neoplasm of breast Acute Z12.39 Presence of total knee joint prosthesis Acute Z96.659 Prediabetes Acute R73.03 Snoring Acute R06.83 Anesthesia of skin Acute R20.0 Low back pain Acute M54.50 Disorder of hip joint Acute M25.9 Ankylosis of joint Acute M24.60 Idiopathic osteoarthritis Acute M19.90 Steatosis of liver Acute K76.0 Intestinal obstruction Acute K56.609 Chronic sinusitis Acute J32.9 Essential hypertension Acute I10 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 Trigeminal neuralgia Acute G50.0 Migraine with aura Acute G43.109 Migraine Chronic G43.909 Obstructive sleep apnea syndrome Chronic G47.33 Recurrent major depression Acute F33.9 Mild major depression Acute F32.0 Hypopituitarism Acute E23.0 Hypothyroidism Chronic E03.9 Polyp of colon Acute K63.5 Onychomycosis due to dermatophyte Acute B35.1 Hypertension Chronic I10 Hyperlipemia Acute E78.5 Effusion, left knee Acute M25.462 Obesity, morbid, BMI 40.0-49.9 Chronic E66.01 Osteoarthritis of left knee Chronic M17.12 Painful total knee replacement, right Acute T84.84XA, Z96.651 Arthrofibrosis of total knee arthroplasty Acute T84.82XA Unilateral primary osteoarthritis, left knee Acute M17.12 Femoroacetabular impingement of both hips Acute M25.851, M25.852 Status post cataract extraction and insertion of intraocular lens of right eye Chronic 08/18/18 Z98.41, Z96.1 Diplopia Acute H53.2 Head ache Acute R51 Status post cataract extraction and insertion of intraocular lens of left eye Chronic 08/04/18 Z98.42, Z96.1 Medical History Medical History Laryngitis Dyspnea Denies Acute pharyngitis Edema Localized edema Malaise Dizziness and giddiness Intractable pain Ambulatory dysfunction Inability to ambulate due to left knee Weakness Depression Obesity Blood glucose elevated Enlarged liver Tricuspid regurgitation History of colon cancer Cortical cataract of left eye Posterior subcapsular age-related cataract of left eye Nuclear sclerotic cataract of left eye Surgical History Surgical History H/O total hysterectomy with bilateral salpingo-oophorectomy (BSO) Status post total right knee replacement followed by open synovectomy then revision Status post cataract extraction Bilateral Hx of colonoscopy History of hemicolectomy Tobacco Smoking/Tobacco Use Status: Former Tobacco Use Passive smoking exposure: No Second hand exposure: No Alcohol Alcohol Intake: former Substance Use Substance use type: does not use and marijuana Vital Signs and Lab Results Vital Signs Most Recent Vital Signs in EMR: Most Recent Vital Signs Temp Pulse Resp BP Pulse Ox 36.6 C 100 H 20 133/82 94 01/18/25 07:17 01/18/25 07:17 01/18/25 07:17 01/18/25 07:17 01/18/25 07:17 Imaging and Studies Imaging and Studies Study information below may be from another EMR and interpreted by another provider. Please see original notes in EMR for more complete details. EKG Summary: Exam: Resting ECG Reason for Exam: Chest Pain Patient Location: E HR:111 bpm ECG Measurements Heart Rate 111 AXIS MD 155 P 54 QRSd 96 QRS 37 QT 327 T36 QTc 443 Conclusion Sinus tachycardia 111 no stemi I have reviewed and I agree with the emergency room physician's ECG interpretation. Stress Test Summary: MPI Conclusion Myocardial perfusion is normal, no ischemia or infarction EF 57%, normal wall motion Echocardiogram Summary: Conclusion Normal left ventricular wall thickness and chamber size. Estimated ejection fraction is 60%. Wall motion is normal Normal right ventricular size and systolic function Both atria are normal in size There is no structural or hemodynamically significant valvular disease Estimated right ventricular systolic pressure is 26 mmHg Carotid Artery Summary:: IMPRESSION: No significant plaque. No evidence of internal carotid artery stenosis. Anesthesia Assessment and Plan Anesthesia History Personal History: No History of Anesthesia Complications Family History: No Family History of Anesthesia Complications Exercise Tolerance Exercise Tolerance: Metabolic Equivalents>4 Cardiac & Pulmonary Exam Cardiac Exam: Normal S1/S2 Heart Sounds Pulmonary Exam: Clear Bilateral Breath Sounds Implantable Cardiac Device Does patient have a Pacemaker or an ICD?: No Airway Exam Known Difficult Airway: No Mallampati Class: 2 Mouth Opening: Normal (> 3cm) Thyromental Distance: Less than 3 cm Neck Range of Motion: Full ROM Neck Circumference: Normal Teeth Condition: Normal Dentition ASA Classification ASA Score: ASA 3 Emergency Case?: No NPO Status NPO Status: NPO Clears >2 hours, Solids >8 hours Anesthesia Plan Resuscitation Status: Full Code Anesthesia Technique: General Anesthesia Airway Planned: Natural Airway Monitors Used: Standard Monitors
[2025-01-18] MEDS: Na Phosphate Enema-Adult 133 ML BTL PR (08:27)
[2025-01-18 08:30] VITALS: BMI 43.0
--- NOTE | 2025-01-18 09:10 | BOWEL_PTH ---
PATIENT: Pari Lackey LOC: [facility] U#:[id number] AGE/SX: 74/F ROOM: RE01/18/[address]: Pita Black MD : [id number] BED: DIS: 01/18/2025 SPEC #: [id number] RECD: 01/18/25 12:23 STATUS: [place] REQ #: [id number] BERNY: 01/18/25 09:[address]: Pita Black DEPT: Surgical Specimen RECD BY: Mariam Carrillo ENTERED: 01/18/25 12:25 SP TYPE: Bowel OTHR DR: Mary Barton, PROSTHETICS TECHNICIAN Tissues: 1 - BIOPSY BOWEL 2 - BIOPSY BOWEL 3 - BIOPSY BOWEL Procedures: GROSS AND MICRO LEVEL 4 Comments: [id number]
--- NOTE | 2025-01-18 09:25 | W.PM.DSUDISC ---
Date of service: 01/18/25 Discharge Plan Disposition Patient Disposition: Home Condition: Stable Discharge Details Attending Provider: Pita Black Primary Care Provider: Mary Barton Recommendations for Follow Up Recommended tests to be ordered by follow up provider: biopsies of colon polyps and lesions Home Meds and New Rx's Prescriptions: Continued calcium carbonate-vitamin D3 500 mg-10 mcg (400 unit) tablet 1 tab PO DAILY rizatriptan [Maxalt-BILINGUAL SALES ASSISTANT] 5 mg tablet,disintegrating 5 mg PO .COMPLEX PRN Patient Comments: months Rx Instructions: 5 mg orally Take one tab at onset of headache, may repeat once in 2-4 hours if headache does not improve or recurs. Max daily dose = 2 PRN; Vitamin D2-Vitamin K1 See Rx Instructions PO DAILY Rx Instructions: Take one orally daily; losartan [Cozaar] 50 mg tablet 50 mg PO DAILY Qty: 90 3RF ketoconazole 2 % cream 1 applic topical DAILY Qty: 120 6RF Rx Instructions: Apply to toenails once daily aspirin 81 mg tablet,delayed release (DR/EC) 81 mg PO DAILY celecoxib 100 mg capsule 100 mg PO QAM diclofenac sodium 1 % gel 2 g topical QID Qty: 100 0RF simvastatin 40 mg tablet 40 mg PO DAILY Qty: 90 3RF celecoxib 200 mg capsule See Rx Instructions .ROUTE .COMPLEX Qty: 60 3RF Dose Instruction: TAKE ONE CAPSULE BY MOUTH EVERY DAY AT BEDTIME Rx Instructions: TAKE ONE CAPSULE BY MOUTH EVERY DAY AT BEDTIME omeprazole 20 mg capsule,delayed release(DR/EC) See Rx Instructions .ROUTE .COMPLEX Qty: 30 3RF Dose Instruction: TAKE ONE CAPSULE BY MOUTH EVERY DAY TAKE 2 HOURS AFTER A MEAL Rx Instructions: TAKE ONE CAPSULE BY MOUTH EVERY DAY TAKE 2 HOURS AFTER A MEAL gabapentin 300 mg capsule 300 mg PO BID Qty: 180 3RF Rx Instructions: TAKE ONE CAPSULE BY MOUTH TWICE A DAY hydrochlorothiazide 12.5 mg tablet 12.5 mg PO DAILY Qty: 90 3RF levothyroxine 50 mcg tablet 50 mcg PO DAILY Qty: 90 3RF acetaminophen 500 mg tablet 1,000 mg PO TID Qty: 90 3RF duloxetine 60 mg capsule,delayed release(DR/EC) 60 mg PO BID Patient Comments: TAKE ONE CAPSULE BY MOUTH TWICE A DAY Discontinued polyethylene glycol 3350 [Miralax] 17 gram/dose powder 17 g PO DAILY Qty: 119 0RF Rx Instructions: Until BM then PRN Discharge Instructions Additional Instructions: Your colonoscopy shows no sign of cancer recurrence. You had two tiny polyps in the left side of the colon removed today. One of the polyps was near your old surgery site and is likely scar tissue. The riht side of the colon shows signs of growths that are benign but larger in size. I suspect these are benign lipomas of the colon. Biopsy can confirm these are not large polyps. I will let you now in writing what your biopsies show but I am not suspicious of a problem. One lipoma was small and one was large. The large one was very soft and appears typical for lipoma of the colon. Next colonoscopy timing will depend on results of your biopsies. I will let you know in writing when that should take place. Stand Alone Forms: Anesthesia Discharge Inst., Colonoscopy Post Instructions, Shelia Lujan (DSU) Discharge Orders Discharge Orders: Discharge Order (Routine); Ordered 01/18/25 Ordered By: Pita Black DS: Diagnosis Discharge Diagnosis (1) Lipoma of colon: Status: Acute (2) Encounter for colonoscopy due to history of colon cancer: Status: Acute (3) Polyp of descending colon: Status: Acute
[2025-01-18 09:26] VITALS: BP 110/53; PULSE 90; RESP 18; TEMP 36.4; O2SAT 94
--- NOTE | 2025-01-18 09:35 | COLE_ITS ---
Date of service: 01/18/25 Time of Service: 09:35 Colonoscopy Report Pre-op diagnosis general: colonoscopy due to history of colon cancer Post-op diagnosis procedure note: other (1. history of colon cancer. 2. Cecum lipoma. 3. Ascending colon submucosal nodule. 4. descending colon polyp. 5. anastomosis polyp. ) Procedure: Colonoscopy with cold forceps polypectomy and biopsy. Surgeon: Pita Black Anesthesia Type: General:No Airway Estimated blood loss (mL): 2 Pathology: other (1. Ascending colon nodule. 2. descending colon polyp. 3. ) Complications: None Disposition: same day Procedure Description: Informed consent was obtained and the patient was taken to the procedure area. The patient was placed in left lateral decubitus position on the procedure table. Timeout was performed. Anesthesia was induced. A lubricated colonoscope was inserted through the anus and passed to the cecum. The cecum was identified by the ileocecal valve and the appendiceal orifice. The scope was then slowly withdrawn and the colonic and rectal mucosa examined. Cecum with submucosal elongated nodule consistent with lipoma. Ascending colon with 2cm submucosal nodule, no mucosal adenomatous supervisor policy change clerks the lesion. Soft, mobile under the mucosa locally. Cold forceps biopsy obtained to ensure no adenomatous change or carcinoid. Descending colon 3mm sessile polyp excised with cold forceps. Colorectal anastomosis at 15cm from the verge with 3mm hypergranulated lesion likely inflammatory or hyperplastic polyp. iven histor, a cold forceps removal was performed. The scope was retroflexed in the anorectal junction examined. Uncomplicated internal hemorrhoids present. Assessment and plan; No concerning findings. Cecum and ascending colon submucosal lesions suspected to be lipomas. If the asc col lesion biopsy does not soow polyp change then this is lipoma and can be left alone. Desc colon and anastomotic polyps, biopsy done. Timing of next colonoscopy depends on path of polyps. Suspect she can return in 5 years.
--- NOTE | 2025-01-18 09:36 | W.ANESPOSTOP ---
Postoperative Evaluation Date, Time and Location Date Performed: 01/18/25 Time Performed: :28 Patient Location: Day Surgery Unit Vital Signs Most Recent Imported Vital Signs: Most Recent Vital Signs Temp Pulse Resp BP Pulse Ox 36.4 C L 90 18 110/53 L 94 01/18/25 09:26 01/18/25 09:26 01/18/25 09:26 01/18/25 09:26 01/18/25 09:26 Pain Score Most Recent Pain Score: Most Recent Pain Score Pain Level 0 01/18/25 09:26 Assessment Mental Status: Awake (Alert & Oriented to Patient Baseline) Airway and Respiratory Function: Patent airway with normal (patient baseline) respiratory exam Cardiovascular Function: Hemodynamically Stable Hydration Status: Adequately Hydrated Nausea & Vomiting: No Nausea or Vomiting Pain: Pt. Denies Any Pain Peripheral Nerve Block: Patient did not receive a nerve block
[2025-01-18 09:54] VITALS: BP 118/66; PULSE 87; RESP 16; TEMP 36.8; O2SAT 97
== END 2025-01-18 10:08 | disposition home or self-care (01) ==
PROVIDERS: PCP Nurse Practitioner Family; Visit Provider Surgery
PROC: 0DJD8ZZ Inspection of Lower Intestinal Tract, Via Natural or Artificial Opening Endoscopic (ICD-10-PCS; CPT 45378; principal; 2025-01-18 08:45)
DX: Z12.11 Encounter for screening for malignant neoplasm of colon (principal); D17.5 Benign lipomatous neoplasm of intra-abdominal organs; Z85.038 Personal history of other malignant neoplasm of large intestine; K63.5 Polyp of colon; K64.8 Other hemorrhoids
CPT/HCPCS: 45380; 88305; J2003; J2704

== ENCOUNTER 2025-01-19 02:12 | Outpatient (CLI) | payer MEDICARE, SELFPAY ==
--- NOTE | 2025-01-19 07:00 | DI.US_ITS ---
Exam(s) US NEEDLE LOCAL OTHER WO RAD EXAM: Left thyroid nodule,ultrasound guided bx,e04.1 COMPARISON: US US THYROID from 10/06/2024 TECHNIQUE: Ultrasound performed using standard protocol. FINDINGS: Sonography was provided for Dr. Rocha during the performance of a left thyroid nodule biopsy. Please refer to the procedure report for complete details. DATA REPOSITORY:
--- NOTE | 2025-01-19 11:30 | PAPNONF_PTH ---
PATIENT: Pari Lackey LOC: [facility] U#:[id number] AGE/SX: 74/F ROOM: RE01/19/[address]: Earl Rocha MD : [id number] BED: DIS: 01/19/2025 SPEC #: [id number] RECD: 01/19/25 12:55 STATUS: [place] REBasil #: [id number] BERNY: 01/19/25 11:[address]: Earl Rocha DEPT: [facility] Cytology RECD BY: Mariam Carrillo ENTERED: 01/19/25 12:56 SP TYPE: SPENCER DEE DR: Mary Barton APRN Tissues: 1 - BODY FLUID CYTO-FINE NEEDLE ASPIRATE-[facility] Procedures: BODY FLUID CYTO-FINE NEEDLE ASPIRATE-[facility] Comments: [id number] (PATH FNA CONSULT) (REFRIGERATED)
--- NOTE | 2025-01-19 11:54 | OPPNE_ITS ---
Date of service: 01/19/25 Time of Service: 11:54 Procedure Note Date of procedure: 01/19/25 Procedure: Ultrasound-guided FNA, left thyroid nodule, pathology present Surgeon/Proceduralist/Physician: Earl Rocha Procedure Diagnosis: Left thyroid nodule meeting criteria for biopsy Procedure Indications: The patient has a left-sided thyroid nodule meeting criteria for biopsy. Op tions were explained to the patient regarding further management. She elected to undergo the above procedure. Consent was sought and signed prior to the procedure. All risks and benefits were discussed at length. She noted no change in her health since I saw her last. Procedure Description: The patient was positioned in the supine position with her neck slightly extended. She was prepped and draped in appropriate fashion and ultrasound used to localize the left sided thyroid nodule. 2% lidocaine with 1/100,000 epinephrine was injected in the skin and subcutaneous tissues overlying the thyroid nodule, and then a 25-gauge needle was advanced into the thyroid nodule. 2 passes were needed to hit cellular adequacy. Once cellular adequacy had been verified by pathology, 2 additional passes were made for potential Afirma testing. The patient tolerated all of this well. After ensuring adequate hemostasis, a sterile dressing was applied and the patient was allowed to sit, stand, and ambulate. Her vital signs remained stable. She will remove the bandage tonight and not replace it. She may use ibuprofen or Tylenol for any discomfort. She will call with any signs of infection or any concerns. She will avoid any strenuous activity today. She will call if she does not hear from us within 1 week with regard to pathology results. She had no further questions. She is comfortable with the plan
== END 2025-01-19 02:32 ==
LOC: DI 02:12
PROVIDERS: PCP Nurse Practitioner Family; Visit Provider Otolaryngology
DX: E04.1 Nontoxic single thyroid nodule (principal)
CPT/HCPCS: 10005; 76942; 88104

== ENCOUNTER 2025-03-04 04:14 | Outpatient (CLI) | payer MEDICARE, SELFPAY ==
[2025-03-04 10:43] LABS: Hemoglobin A1C 5.9 % (<5.7)
[2025-03-04 11:35] LABS: Creatine Kinase 129 U/L (26-192)
[2025-03-04 11:36] LABS: Calculated LDL 72 mg/dL (<100); Cholesterol 163 mg/dL (<200); HDL Cholesterol 70 mg/dL (>or=50); Triglyceride 106 mg/dL (<150)
== END 2025-03-04 04:15 | disposition home or self-care (01) ==
LOC: LBO 04:14
PROVIDERS: PCP Nurse Practitioner Family; Visit Provider Nurse Practitioner Family
DX: E78.5 Hyperlipidemia, unspecified (principal); R73.03 Prediabetes
CPT/HCPCS: 36415; 80061; 82550; 83036

== ENCOUNTER 2025-03-23 00:57 | Outpatient (CLI) | payer MEDICARE, SELFPAY ==
--- NOTE | 2025-03-23 07:45 | DI.US_ITS ---
Exam(s) US CHEST EXAM: US CHEST CLINICAL HISTORY: intermittent LT SIDED CHEST WALL pain, dense tissue,R07.89 TECHNIQUE: Ultrasound performed using standard protocol. COMPARISON: CT CT CHEST PE CTA from 12/02/2024 FINDINGS: Dedicated ultrasound examination of area of concern on the upper anterior left chest wall above the level of the breast was performed. This apparently an area of possible palpable abnormality. Submitted images reveal no evidence of solid or significant cystic lesion at this level. No abnormal fluid collections. IMPRESSION: No significant ultrasound findings in the area of clinical concern scanned. Please note this patient also had a chest CT scan on 12/02/2024 to rule out pulmonary embolus (which was a negative study). Review of those images reveals no significant focal abnormality in the subcutaneous soft tissues in the area of clinical concern scanned today with ultrasound. DATA REPOSITORY:
== END 2025-03-23 01:17 ==
LOC: DI 00:57
PROVIDERS: PCP Nurse Practitioner Family; Visit Provider Nurse Practitioner Family
DX: R07.89 Other chest pain (principal)
CPT/HCPCS: 76604

== ENCOUNTER 2025-03-29 03:39 | Outpatient (CLI) | payer MEDICARE, SELFPAY ==
[2025-03-29 14:13] LABS: HCT 40.2 % (36.0-46.0); HGB 12.5 g/dL (11.2-15.7); MCH 27.7 pg (27.0-33.0); MCHC 31.1 % (32.0-36.0); MCV 89 fL (80-95); MPV 10.9 fL (8.0-11.0); Platelet Count 206 10^3/uL (130-400); RBC 4.51 10^6/uL (3.93-5.22); RDW 13.2 % (11.7-14.6); RDW-SD 43.2 fL; WBC 6.26 10^3/uL (4.4-10.8)
[2025-03-29 14:52] LABS: Anion Gap 5.7 mmol/L (3-11); BUN 16 mg/dL (7-18); CO2 34.3 mmol/L (21.0-32.0); Calcium 9.3 mg/dL (8.5-10.1); Chloride 103 mmol/L (98-107); Glucose 118 mg/dL (74-106); Potassium 4.1 mmol/L (3.5-5.1); Sodium 143 mmol/L (136-145)
== END 2025-03-29 03:40 | disposition home or self-care (01) ==
LOC: LBO 03:39 → LBN 14:06
PROVIDERS: PCP Nurse Practitioner Family; Visit Provider Student in an Organized Health Care Education/Training Program
DX: M16.11 Unilateral primary osteoarthritis, right hip (principal); Z01.818 Encounter for other preprocedural examination
CPT/HCPCS: 80048; 85027

== ENCOUNTER → 2025-03-29 12:56 | Outpatient (BNVA) | payer MEDICARE, SELFPAY | PROVIDERS: PCP Nurse Practitioner Family; Referring Provider Nurse Practitioner Family; Visit Provider Physician Assistant | DX: Z01.818 Encounter for other preprocedural examination (principal); M16.11 Unilateral primary osteoarthritis, right hip | CPT/HCPCS: 99024 ==

== ENCOUNTER 2025-04-06 06:02 | Day surgery (SDC) | payer MEDICARE, SELFPAY ==
--- NOTE | 2025-04-05 10:00 | RT.EKG_ITS ---
APPROVED REPORT Exam: Resting ECG Reason for Exam: PREOP Patient Location: O HR:79 bpm ECG Measurements Heart Rate 79 AXIS MA 176 P 63 QRSd 100 QRS 37 QT 425 T 53 QTc 488 Conclusion Sinus rhythm...normal P axis, V-rate 60- 99 Abnormal T, anterior leads...T <-0.20mV, V2-V4
[2025-04-06] VITALS (18 sets, daily range): BP systolic 84–157; BP diastolic 40–89; PULSE 70–99; RESP 12–21; TEMP 36–36.3; O2SAT 87–97; BMI 43.0
--- NOTE | 2025-04-06 06:45 | DI.RAD_ITS ---
Exam(s) XR HIP RT IN OR EXAM: XR HIP RT IN OR CLINICAL HISTORY: OA RIGHT HIP. TECHNIQUE: 2D digital imaging was performed. COMPARISON: No exams were available for comparison FINDINGS: Proximally provided during right hip arthroplasty. See procedure report for details. IMPRESSION: Radiation exposure index/cumulative dose:gene Bills=6.88mGy DATA REPOSITORY: RADIATION DOSE DELIVERED:
--- NOTE | 2025-04-06 06:50 | ANES.PREOP_ITS ---
General Info Date of Service Date Performed: 04/06/25 Height: 5 ft 2 in Weight: 106.7 kg Body Mass Index (BMI): 43.0 Surgical Procedure: Operation Date: 04/06/25 07:50 Proposed Procedure Side Surgeon p Hip Total Hip Anterior, ACTIS Right Andre Tavares MD Meds Allergies and Home Medications Allergies Allergy/AdvReac Type Severity Reaction Status Date / Time nickel (Nickel) Allergy Mild Skin Rash Verified 04/06/25 06:14 sulfamethoxazole (From AdvReac Unknown Nausea Verified 04/06/25 06:14 Bactrim) trimethoprim (From Bactrim) AdvReac Unknown Nausea Verified 04/06/25 06:14 aripiprazole AdvReac Dizziness/L Verified 04/06/25 06:14 ighthead bupropion (From Wellbutrin) AdvReac CONFUSION Verified 04/06/25 06:14 Home Medication Medication Instructions Recorded Vitamin D2-Vitamin K1 See Rx Instructions PO DAILY 12/23/23 calcium 500 mg (as 1 tab PO DAILY 12/23/23 carbonate)-vitamin D3 10 mcg (400 unit) tablet rizatriptan 5 mg disintegrating 5 mg PO .COMPLEX PRN 0 12/23/23 tablet (Maxalt-LINE AND FRAME POLER) diclofenac sodium 1 % topical gel 2 g topical QID #100 grams 01/21/24 ketoconazole 2 % topical cream 1 applic topical DAILY #120 grams 06/02/24 losartan 50 mg tablet (Cozaar) 50 mg PO DAILY #90 tab- caps 07/07/24 simvastatin 40 mg tablet 40 mg PO DAILY cholesterol # 90 10/20/24 tab-caps duloxetine 60 mg capsule,delayed 60 mg PO BID 12/02/24 release omeprazole 20 mg capsule,delayed See Rx Instructions . Route 12/04/24 release .COMPLEX #30 caps gabapentin 300 mg capsule 300 mg PO BID #180 caps 11/25 09/18 hydrochlorothiazide 12.5 mg tablet 12.5 mg PO DAILY #9 0 tabs 12/21/24 levothyroxine 50 mcg tablet 50 mcg PO DAILY #90 tabs 0 01/04/25 acetaminophen 500 mg tablet 1,000 mg (2 x 500 mg) PO Q 8H PRN 04/06/25 pain #90 tabs aspirin 81 mg tablet,delayed 81 mg PO BID 30 days #60 tabs 04/06/25 release celecoxib 200 mg capsule (Celebrex) 200 mg PO BID PRN #60 caps 04/06/25 dexamethasone 4 mg tablet 4 mg PO DAILY #2 tabs docusate sodium 100 mg capsule 100 mg PO BID #28 caps 04/06/25 (Colace) oxycodone 5 mg tablet 5 mg PO Q6H PRN #12 tabs 04/20 Current Visit Medications: Current Medications Generic Name Dose Route Start Last Admin Trade Name Ember PRN Reason Stop Dose Admin Acetaminophen 1,000 mg 04/06/25 06:00 Acetaminophen 500 Mg Tab PO 04/06/25 23:59 PREOP FELY Celecoxib 400 mg 04/06/25 06:00 Celecoxib 200 Mg Cap PO 04/06/25 23:59 PREOP FELY Ringer's Solution 1,000 mls @ 80 mls/hr 04/06/25 06:00 IV 04/06/25 23:59 INFUSION FELY Cefazolin Sodium/Dextrose 2 gm in 50 mls @ 100 mls/hr 04/06/25 06:00 Ancef Duplex IVPB 04/06/25 23:59 PREOP FELY Tranexamic Acid/Sodium Chloride 1,000 mg in 100 mls @ 600 mls/hr 04/06/25 06:00 IVPB 04/06/25 23:59 PREOP [facility] IV Miscellaneous Supplies 1 each 04/06/25 06:00 Iv Access IV 04/06/25 23:59 DIRECTED FELY Sodium Chloride 0 ml 04/06/25 06:00 Normal Saline Flush 10 Ml Syr IV 04/06/25 23:59 PRN PRN Sodium Chloride 0 ml 04/06/25 06:00 Normal Saline 10 Ml Vial IJ 04/06/25 23:59 DIRECTED PRN Sterile Water 0 ml 04/06/25 06:00 Water,Injection,Sterile 10 Ml Vial IJ 04/06/25 23:59 DIRECTED PRN PFSH Active Problems Active Problems: Problem Status Onset Code Left-sided chest wall pain Acute R07.89 Anterior chest wall pain Acute R07.89 Pre-op exam Acute Z01.818 Polyp of descending colon Acute K63.5 Lipoma of colon Acute D17.5 Terrell's thyroiditis Acute E06.3 Multinodular thyroid Acute E04.2 History of total left hip arthroplasty Acute 08/12/24 Z96.642 Seasonal affective disorder Acute F33.8 Nail dystrophy Acute L60.3 Onychomycosis Acute B35.1 Acid reflux Chronic K21.9 Thyroid nodule Acute E04.1 Arthritis of left knee Acute M17.12 Osteoarthritis of right hip Acute M16.11 Tubular adenoma Acute D36.9 Hip pain, bilateral Acute M25.551, M25.552 Presence of total knee joint prosthesis Acute Z96.659 Prediabetes Acute R73.03 Snoring Acute R06.83 Disorder of hip joint Acute M25.9 Ankylosis of joint Acute M24.60 Idiopathic osteoarthritis Acute M19.90 Steatosis of liver Acute K76.0 Chronic sinusitis Acute J32.9 Essential hypertension Acute I10 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 Migraine with aura Acute G43.109 Obstructive sleep apnea syndrome Chronic G47.33 Recurrent major depression Acute F33.9 Hypothyroidism Chronic E03.9 Onychomycosis due to dermatophyte Acute B35.1 Hyperlipemia Acute E78.5 Obesity, morbid, BMI 40.0-49.9 Chronic E66.01 Osteoarthritis of left knee Chronic M17.12 Painful total knee replacement, right Acute T84.84XA, Z96.651 Arthrofibrosis of total knee arthroplasty Acute T84.82XA Unilateral primary osteoarthritis, left knee Acute M17.12 Femoroacetabular impingement of both hips Acute M25.851, M25.852 Medical History Medical History Acute UTI Altered mental status Breast cancer screening Intercostal neuralgia left sided anterior pain reproducible on exam, nonexertional Hip pain, right Pain in right foot Trigger thumb of left hand Pain in joint of left knee Pain in right wrist Pain, joint, knee, right Screening for malignant neoplasm of breast Anesthesia of skin Low back pain Intestinal obstruction Trigeminal neuralgia Migraine Mild major depression 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 Polyp of colon Effusion, left knee Hypertension Head ache Diplopia Laryngitis Dyspnea Denies Acute pharyngitis Edema Localized edema Malaise Dizziness and giddiness Intractable pain Ambulatory dysfunction Inability to ambulate due to left knee Weakness Depression Obesity Blood glucose elevated Enlarged liver Tricuspid regurgitation History of colon cancer Cortical cataract of left eye Posterior subcapsular age-related cataract of left eye Nuclear sclerotic cataract of left eye Surgical History Surgical History Status post cataract extraction and insertion of intraocular lens of right eye (08/18/18) Status post cataract extraction and insertion of intraocular lens of left eye (08/04/18) H/O total hysterectomy with bilateral salpingo-oophorectomy (BSO) Status post total right knee replacement followed by open synovectomy then revision Status post cataract extraction Bilateral Hx of colonoscopy (~01/18/25) History of hemicolectomy Tobacco Smoking/Tobacco Use Status: Former Tobacco Use Passive smoking exposure: No Second hand exposure: No Alcohol Alcohol Intake: former Substance Use Substance use: Never Substance use type: does not use Vital Signs and Lab Results Vital Signs Most Recent Vital Signs in EMR: Most Recent Vital Signs Temp Pulse Resp BP Pulse Ox 36.3 C L 99 H 20 157/89 H 95 04/06/25 06:38 04/06/25 06:38 04/06/25 06:38 04/06/25 06:38 04/06/25 06:38 Lab Results Complete Blood Count: WBC, (4.4-10.8) 6.26 10^3/uL 03/29/25, 13:55 RBC, (3.93-5.22) 4.51 10^6/uL 03/29/25, 13:55 Hgb, (11.2-15.7) 12.5 g/dL 03/29/25, 13:55 Hct, (36.0-46.0) 40.2 % 03/29/25, 13:55 Plt Count, (130-400) 206 10^3/uL 03/29/25, 13:55 Complete Metabolic Panel: Sodium, (136-145) 143 mmol/L 03/29/25, 13:55 Potassium, (3.5-5.1) 4.1 mmol/L 03/29/25, 13:55 Chloride, (98-107) 103 mmol/L 03/29/25, 13:55 Carbon Dioxide, (21.0-32.0) 34.3 mmol/L H 03/29/25, 13 :55 BUN, (7-18) 16 mg/dL 03/29/25, 13:55 Creatinine, (0.55-1.02) 0.9 mg/dL 03/29/25, 13:55 Est GFR (CKD-EPI 2020), (mL/min/1.73m2) 67.92 03/29/25, 13:55 Calcium, (8.5-10.1) 9.3 mg/dL 03/29/25, 13:55 Glucose, (74-106) 118 mg/dL H 03/29/25, 13:55 Imaging and Studies Imaging and Studies Study information below may be from another EMR and interpreted by another provider. Please see original notes in EMR for more complete details. EKG Summary: 04/06/25: Sinus Rhythm, abnormal T waves, anterior leads Stress Test Summary: MPI Conclusion Myocardial perfusion is normal, no ischemia or infarction EF 57%, normal wall motion Echocardiogram Summary: Conclusion Normal left ventricular wall thickness and chamber size. Estimated ejection fraction is 60%. Wall motion is normal Normal right ventricular size and systolic function Both atria are normal in size There is no structural or hemodynamically significant valvular disease Estimated right ventricular systolic pressure is 26 mmHg Carotid Artery Summary:: IMPRESSION: No significant plaque. No evidence of internal carotid artery stenosis. Anesthesia Assessment and Plan Anesthesia History Personal History: No History of Anesthesia Complications Family History: No Family History of Anesthesia Complications and Malignant Hyperthermia Exercise Tolerance Exercise Tolerance: Metabolic Equivalents<4 (Reports difficulty with exercise due to hip discomfort) Pertinent Negatives Pertinent Negatives: No Symptoms of GERD Cardiac & Pulmonary Exam Cardiac Exam: Normal S1/S2 Heart Sounds Pulmonary Exam: Clear Bilateral Breath Sounds Implantable Cardiac Device Does patient have a Pacemaker or an ICD?: No Airway Exam Known Difficult Airway: No Mallampati Class: 2 Mouth Opening: Normal (> 3cm) Thyromental Distance: Less than 3 cm Neck Range of Motion: Full ROM Neck Circumference: Normal Teeth Condition: Normal Dentition ASA Classification ASA Score: ASA 3 Emergency Case?: No NPO Status NPO Status: NPO Clears >2 hours, Solids >8 hours Anesthesia Plan Resuscitation Status: Full Code Anesthesia Technique: Spinal Anesthesia Airway Planned: Natural Airway Monitors Used: Standard Monitors Preoperative Comments:: Right anterior chest palpated and pain was able to be d esignated to be relatively superficial compared to deeper inside her chest . Negative chest wall ultrasound and negative chest CT 12/02/24 for PE. Patient reports she can palpate the area of discomfort and relieves itself with massage. Patient has discussed findings with primary care who indicates no further testing at this time.
[2025-04-06] MEDS: Celecoxib 200 MG CAP 400 MG PO (06:59)
[2025-04-06] MEDS: Acetaminophen 500 MG TAB 1000 MG PO (07:00)
--- NOTE | 2025-04-06 07:06 | W.PM.DSUDISC ---
Date of service: 04/06/25 Discharge Plan Disposition Patient Disposition: Home Condition: Good Discharge Details Reason For Visit: Right hip DJD Attending Provider: Andre Tavares Primary Care Provider: Mary Barton Home Meds and New Rx's Prescriptions: New acetaminophen 500 mg tablet 1,000 mg PO Q8H PRN Qty: 90 0RF Rx Instructions: Take two tablets up to every 8 hours as needed for pain aspirin 81 mg tablet,delayed release (DR/EC) 81 mg PO BID 30 Days Qty: 60 0RF celecoxib [Celebrex] 200 mg capsule 200 mg PO BID PRNQty: 60 0RF Rx Instructions: Take one tablet twice daily for pain and inflammation docusate sodium [Colace] 100 mg capsule 100 mg PO BID Qty: 28 0RF dexamethasone 4 mg tablet 4 mg PO DAILY Qty: 2 0RF Rx Instructions: Take one tablet once daily for two days oxycodone 5 mg tablet 5 mg PO Q6H PRNQty: 12 0RF Rx Instructions: Take one tablet up to every 6 hours as needed for severe postoperative pain Continued calcium carbonate-vitamin D3 500 mg-10 mcg (400 unit) tablet 1 tab PO DAILY rizatriptan [Maxalt-[facility]] 5 mg tablet,disintegrating 5 mg PO .COMPLEX PRN Patient Comments: months Rx Instructions: 5 mg orally Take one tab at onset of headache, may repeat once in 2-4 hours if headache does not improve or recurs. Max daily dose = 2 PRN; Vitamin D2-Vitamin K1 See Rx Instructions PO DAILY Rx Instructions: Take one orally daily; losartan [Cozaar] 50 mg tablet 50 mg PO DAILY Qty: 90 3RF ketoconazole 2 % cream 1 applic topical DAILY Qty: 120 6RF Rx Instructions: Apply to toenails once daily diclofenac sodium 1 % gel 2 g topical QID Qty: 100 0RF simvastatin 40 mg tablet 40 mg PO DAILY Qty: 90 3RF omeprazole 20 mg capsule,delayed release(DR/EC) See Rx Instructions .ROUTE .COMPLEX Qty: 30 3RF Dose Instruction: TAKE ONE CAPSULE BY MOUTH EVERY DAY TAKE 2 HOURS AFTER A MEAL Rx Instructions: TAKE ONE CAPSULE BY MOUTH EVERY DAY TAKE 2 HOURS AFTER A MEAL gabapentin 300 mg capsule 300 mg PO BID Qty: 180 3RF Rx Instructions: TAKE ONE CAPSULE BY MOUTH TWICE A DAY hydrochlorothiazide 12.5 mg tablet 12.5 mg PO DAILY Qty: 90 3RF levothyroxine 50 mcg tablet 50 mcg PO DAILY Qty: 90 3RF duloxetine 60 mg capsule,delayed release(DR/EC) 60 mg PO BID Patient Comments: TAKE ONE CAPSULE BY MOUTH TWICE A DAY Discontinued celecoxib 200 mg capsule See Rx Instructions .ROUTE .COMPLEX Qty: 60 3RF Dose Instruction: TAKE ONE CAPSULE BY MOUTH EVERY DAY AT BEDTIME Rx Instructions: TAKE ONE CAPSULE BY MOUTH EVERY DAY AT BEDTIME acetaminophen 500 mg tablet 1,000 mg PO TID Qty: 90 3RF Discharge Instructions Additional Instructions: Total Hip Discharge Instructions Activity: The most important activity is to walk. You should try to take short walks a few times a day. You have no restrictions on movement or positioning, but do not try to force what you do. You will find some stiffness and weakness with hip flexion (lifting your knee). Do not try to strengthen this too early, continue to practice walking and stairs and this will come. - Outpatient physical therapy can be helpful to help return you to a normal gait and improve your flexibility and strength. This can start around 2 weeks. For some patients, it´s not necessary. Usually this is determined at the time of discharge or at the first post-operative visit. - You should wear the LOUIS hose on both legs for 2 weeks. Dressing: Keep the surgical dressing in place for at least one week. After the first week it may be removed and replace with light gauze and tape or nothing. It may get wet after 3 days but avoid soaking the dressing. If it gets wet, just lightly pat dry. It is important to always keep some gauze between skin folds, especially when you are sitting. Spend some time with the wound exposed when you are lying flat as the incision does wrinkle onto itself. Medications: - You should take Tylenol and an anti-inflammatory Celebrex as your primary pain control medications. If the Celebrex is too expensive or not covered, please call the office for another alternative (Advil/Ibuprofen or Naproxen/Aleve). - You have been prescribed a stronger pain medication Oxycodone for breakthrough pain, take as needed as prescribed. - You take a stomach acid reduction agent Omeprazole at baseline - continue with this medication to help reduce stomach acid and reflux. - You have also been prescribed Decadron to help with post-operative nausea and pain. You will take this for two days starting tomorrow. - You will be taking Aspirin 81mg twice a day for DVT prevention unless instructed otherwise. - If you have constipation you should take Colace (which has been prescribed) or Miralax (which is available [id number]). It takes most people 3-4 days to have a bowel movement. Follow-up: 2 weeks If you have any acute concerns or questions, please do not hesitate to contact the office at [phone]. You may contact Dr. Tavares with any questions after hours through the hospital at [phone] or on his cell phone at [phone]. Stand Alone Forms: Portal Information Referrals: Andre Tavares MD [ [facility] STAFF PHYSICIAN, Orthopaedic Surgical] Equipment/Supplies: Walker Activity:: Elevate Remove Dressings/Wound Care:: Do Not Remove Shower/Bathe:: Cover Diet:: As Tolerated Discharge Orders Discharge Orders: Discharge Order (Routine); Ordered 04/06/25 Ordered By: Carolina Garrett
--- NOTE | 2025-04-06 07:15 | RT.EKG_ITS ---
APPROVED REPORT Exam: Resting ECG Reason for Exam: preop Patient Location: O HR:77 bpm ECG Measurements Heart Rate 77 AXIS ME 164 P 55 QRSd 108 QRS 21 QT 428 T -66 QTc 486 Conclusion Sinus rhythm...normal P axis, V-rate 60- 99 Abnormal T,diffuse leads...T <-0.20mV, ant/lat/inf
[2025-04-06] MEDS: Lactated Ringers 1,000 ML 80 ML IV (07:47)
[2025-04-06] MEDS: ceFAZolin 2 GM/50 ML BAG IVPB (07:55)
[2025-04-06] MEDS: TRANEXAMIC ACID/SOD. CHL. 1,000 MG/100 ML BAG 600 MG IVPB (08:10)
[2025-04-06] MEDS: Ketorolac 30 MG/ML VIAL (08:49)
[2025-04-06] MEDS: EPINEPHrine 1 MG/ML AMP pres-free (08:49)
[2025-04-06] MEDS: ROPIvacaine 0.2% 200 MG/100 ML BAG (08:49)
--- NOTE | 2025-04-06 09:26 | W.PM.OP ---
Operative Note Operative Note PRE-OP DIAGNOSIS: Right Hip Osteoarthritis POST-OP DIAGNOSIS: same PROCEDURE: Right Anterior Total Hip Arthroplasty with Intraoperative Navigation SURGEON: Andre Tavares STEEL PLATE PRINTER: Carolina Garrett ANESTHESIA TYPE: Spinal Refer to Anesthesia Record ESTIMATED BLOOD LOSS: 150 PATHOLOGY: none sent TOURNIQUET TIME: 0 COMPLICATIONS: None Patient was transported to: PACU Patient's condition: stable Implants: 1. Depuy Emphasys Acetabular Component, 48mm 2. Depuy Acetabular Liner, [id number] 3. Depuy Actis Standard Collared Femoral Stem, Size 4 4. Depuy Altrx Ceramic Femoral Head, Size 36+1.5mm Indications: I have seen Pari in clinic for symptoms of hip arthritis, confirmed with radiographic findings. She has exhausted nonoperative methods and was having significant limitations in daily function and desired better function and less pain. She did very well from a left hip replacement and desired to proceed with the right side. Once again, I reviewed the risks of the procedure to include, but not limited to, bleeding, infection, pain, stiffness, fracture, damage to nerves and vessels, damage to muscles and tendons, loosening, instability, leg length inequality, need for repeat procedure, blood clot and cardiopulmonary demise. Despite these risks, Pari elected to proceed. Findings: There was significant signs of arthritis throughout the hip. At the end the case there was noted to be some tearing of the lateral aspect of the proximal rectus femoris tendon and fascia. This was not able to be repaired directly but was not complete. Procedure Description: Pari was greeted in the preoperative holding area where the correct side was identified and marked. The consent was reviewed with the patient and signed. The history and physical was updated. All questions were answered. She was taken back to the operating room. A spinal anesthestic was then administered. The feet were wrapped with cast padding and Coban and then placed into the boot liners and then into the boots. Care was taken to protect the skin and make sure the heels were fully down and the boots were stable. The patient was then positioned onto the HANA table. Both legs were held in a neutral position. SCDs were applied. The patient was then slid down onto a peroneal post. Prophylactic antibiotics in the form of Cefazolin were administered. 1g of Tranxemic Acid was given intravenously within 30 minutes of incision. The right leg was then prepped with Chloraprep and draped in a standard fashion. A second prep with Chloraprep was performed prior to placement of a shower-curtain type drape with Iodine impregnated skin protection. A timeout to confirm correct identity, side and site, procedure, allergies, anesthesia, and medical concerns was performed. An obliquely oriented incision was made starting lateral to the ASIS and running distal over the Tensor Fascia Sofía (TFL) muscle belly toward the fibular head, approximately 10cm. The skin and soft tissue was dissected sharply, through Denys´s fascia, and to the fascia of the TFL. With the fascia and superior border of the IT band identified, the fascia was incised with a new knife just above any perforators from the IT band. The TFL muscle belly was bluntly dissected away from the fascia and moved laterally. The fat between TFL and rectus was identified to ensure the dissection was not within the TFL. Blunt dissection created space between abductors and the capsule and retractor was placed over the lateral femoral neck. The fibers of the rectus femoris tendon were identified and these were freed from the anterior capsule. A second cobra retractor was placed around the medial femoral neck. The TFL was further retracted laterally to show the deep fascia. Careful dissection through this layer identified three main crossing vessels of the lateral femoral circumflex. These were cauterized in multiple locations and then cut without any noticeable bleeding. The TFL was further released bluntly from the deep fascia to expose anterior hip capsule and fat The soft tissue orthopaedic retractor was then placed beneath the TFL and against sartorius and medial soft tissues to protect and retract the soft tissues. A T-capsulotomy was then performed starting at the superior lateral acetabulum and moving distally to the intertrochanteric ridge. These capsular flaps were tagged with a No. 1 Vicryl and elevated from within. The capsular flaps were released to the shoulder of the lateral neck and to the lesser trochanter to give excellent visualization of the proximal femur. A neck osteotomy was performed using an oscillating saw based on preoperative templates. This cut started in the shoulder and of the lateral neck and exited medially. The saw was at all times directed medially to avoid injury to the greater trochanter. Gross traction was applied to the leg and the osteotomy opened. The femoral head was removed with a corkscrew, making sure to protect the TFL on its exit. Traction was released after head removal. This was measured on the back table to determine the starting reamer size. Portions of the rectus obscuring visualization were minimally elevated off the superior acetabulum. An anterior retractor was placed over the anterior wall between capsule and labrum and attached to the Gripper retraction system. The femur was rotated to 90 degrees and medial capsule was fully released until the lesser trochanter was palpable and visible; the femur was returned to 30 degrees. A posterior retractor was placed similarly between capsule and labrum. This provided excellent visualization. The contents of the cotyloid fossa were removed with electrocautery and the labrum was removed with a knife. There was a notable floor osteophyte. There was significant chondromalacia of the superior acetabulum. Acetabular reaming began with a 44mm reamer. This first reaming was directed anterior to posterior and medial to get down to the true floor. This was inspected and reamed until the true floor was reached. The anterior retractor was then released and entry and exit was provided by traction on the capsular flaps. I then reamed sequentially up to a 48mm reamer where good fit was obtained. The larger reamers were oriented based on anatomical reference of the anterior and lateral de la o to ensure proper abduction and anteversion. Positioning and size was confirmed with the fluoroscopy. A 48mm Depuy Emphasys acetabular component was selected. The deep tissues were irrigated. The acetabular component was then impacted in a position of about 40-45 degrees of abduction and 15-20 degrees of anteversion, using the patient´s anatomy as the ultimate landmark. Fluoroscopy was used to confirm this. There was excellent hearing screener of the acetabular component and the inserting handle was removed. The acetabular liner, Depuy [id number] polyethylene liner, was inserted and lined up with the tines of the acetabular component. There was no soft tissue interposition. The liner was then impacted into position and confirmed to be well-seated. A portion of the pattie-articular cocktail was then injected around the acetabulum into the capsule and periosteum. This cocktail consisted of 123mg of Ropivacaine, 0.25mg of Epinephrine, 0.04mg of Clonidine, and 15mg of Ketorolac, diluted to 50cc. The leg was rotated to 120 degrees. Any remaining medial capsule was released until the lesser trochanter was easily palpable. A retractor was placed medially. The lateral capsule was further released into the shoulder to allow access to the greater trochanter. A Garibay retractor was placed over the greater trochanter which allowed the trochanter to flip in front of the capsule for excellent exposure. The leg was brought down into maximal extension and 20 degrees of adduction while ensuring there was no impingement on the acetabulum. Any remnant capsule within the trochanter was released. Piriformis and obturator externis were identified and protected. There was excellent access to the proximal femur. The lateral neck remnant was removed with a rongeur. A blunt canal probe was used to identify the canal and trajectory for later broaching. A box osteotome initiated the broach course. A small curved rasp and a curved curette were used to work laterally. Broaching then began with a starter Actis broach. This was inserted manually around the trochanter and into the canal before mallet blows. The broach was seated to the neck cut level based on the neck cut and the preoperative template. Sequential broaching was continued with the YYogase pneumatic broaching device until a tight fit was obtained with good rotational control of the femur. A trial standard neck was inserted along with a +1.5 trial head. The leg was brought out of extension and adduction and then reduced with traction and internal rotation. The leg was stable anteriorly in a position of 30 degrees of extension and 90 degrees of external rotation. Fluoroscopy was used to ensure there was no fracture and the stem was seated well. Leg lengths were checked with an AP pelvis and pelvic reference points. Navut navigation system was used to confirm appropriate positioning and leg length and offset. This showed accurate recreation of the offset but overcorrection of the leg length. Therefore, the broach was advanced approxi-3 to 4 mm. Once content with the desired offset and leg lengths, the leg was brought back into extension, external rotation and adduction. The periosteum and surrounding tissue was injected with remaining portion of the pattie-articular cocktail. The proximal femur was irrigated as well as the deep tissues. The EpiVaxuy Actis standard collared stem, size 4, was then manually inserted into the proximal femur making sure to control rotation. It was then malleted into position with light blows, giving breaks to allow bone expansion and decrease risk of fracture. The selected Depuy Altrx Ceramic Head, size 36+1.5mm, was then placed onto the clean and dry trunnion and secured with impaction onto the tapered fit. The leg was brought back out of extension and adduction and reduced with traction and internal rotation. Stability was confirmed with no shuck at 90 degrees of external rotation and 30 degrees of extension. No impingement through range of motion arc. There was noted to be some tearing of the fascia of the proximal rectus femoris. This was not noted early in the case but was likely from medial based retractor. This was not a complete tear and there was no healthy fascia to reapproximate and therefore was left. Final x-ray images were obtained with fluoroscopy to confirm adequate positioning and no intraoperative fracture. The deep tissues were thoroughly irrigated with Surgiphor, betadine solution. This was allowed to sit in the wound for 3 minutes before being thoroughly irrigated out with normal saline. The capsule was then reapproximated with the previously placed sutures. The TFL fascia was finally closed with a No. 2 Stratafix, barbed suture. Deep tissues were then reapproximated with 0 Vicryl and a running 2-0 Vicryl. The skin was closed with a running 4-0 Monocryl in a subcuticular fashion. This was reinforced with skin glue. A Mepilex silver dressing was applied. At the end of the case, all counts were correct. Pari was transferred to the hospital bed without difficulty and suffering no apparent complication. Pari has a good prognosis. Physical therapy will start today and without restrictions, weight-bearing as tolerated. Aspirin 81mg BID will be used for DVT prophylaxis. Date of Procedure: 04/06/25
[2025-04-06] MEDS: Tranexamic Acid 650 MG TAB 1300 MG PO (10:16)
[2025-04-06] MEDS: oxyCODONE 5 MG TAB PO (10:16)
--- NOTE | 2025-04-06 10:51 | W.ANESPOSTOP ---
Postoperative Evaluation Date, Time and Location Date Performed: 04/06/25 Time Performed: 10:51 Patient Location: Day Surgery Unit Vital Signs Most Recent Imported Vital Signs: Most Recent Vital Signs Temp Pulse Resp BP Pulse Ox 36.2 C L 76 18 136/69 94 04/06/25 10:46 04/06/25 10:46 04/06/25 10:46 04/06/25 10:46 04/06/25 10:46 Pain Score Most Recent Pain Score: Most Recent Pain Score Pain Level 5 04/06/25 10:46 Assessment Mental Status: Awake (Alert & Oriented to Patient Baseline) Airway and Respiratory Function: Patent airway with normal (patient baseline) respiratory exam Cardiovascular Function: Hemodynamically Stable Hydration Status: Adequately Hydrated Nausea & Vomiting: No Nausea or Vomiting Pain: Pain is tolerable per patient Peripheral Nerve Block: Patient did not receive a nerve block
--- NOTE | 2025-04-06 11:57 | IN_ITS ---
PT Notes Visit Reasons: Right hip DJD Physical Therapy Day Surgery Initial Evaluation Date04/06/2025 Referring Doctor: Carolina Garrett NP/Dr Tavares PT Orders: PT CONSULT: s/p Ortho Surgery Precautions: WBAT RLE Patient Profile/Admitting Diagnosis: Pari is a 74 yo female presenting s/p elective right BHARATHI under spinal anesthesia. Post op initially complicated by pain which reduced with pain medication. PMHX: Left-sided chest wall pain (Acute) Anterior chest wall pain (Acute) Pre-op exam (Acute) Polyp of descending colon (Acute) Lipoma of colon (Acute) Terrell's thyroiditis (Acute) Multinodular thyroid (Acute) History of total left hip arthroplasty (Acute 08/12/24) Seasonal affective disorder (Acute) Nail dystrophy (Acute) Onychomycosis (Acute) Acid reflux (Chronic) Thyroid nodule (Acute) Arthritis of left knee (Acute) Osteoarthritis of right hip (Acute) POCUS INJECTION 04/02/24Tubular adenoma (Acute) Hip pain, bilateral (Acute) Presence of total knee joint prosthesis (Acute) Prediabetes (Acute) Snoring (Acute) Disorder of hip joint (Acute) Ankylosis of joint (Acute) Idiopathic osteoarthritis (Acute) Steatosis of liver (Acute) Chronic sinusitis (Acute) Essential hypertension (Acute) Rheumatic tricuspid valve regurgitation (Acute) Migraine with aura (Acute) Obstructive sleep apnea syndrome (Chronic) Using CPAPRecurrent major depression (Acute) Hypothyroidism (Chronic) Onychomycosis due to dermatophyte (Acute) Hyperlipemia (Acute) Obesity, morbid, BMI 40.0-49.9 (Chronic) Osteoarthritis of left knee (Chronic) DEPO INJECTION: 05/16/21Painful total knee replacement, right (Acute) Arthrofibrosis of total knee arthroplasty (Acute) Unilateral primary osteoarthritis, left knee (Acute) Depo-Medrol injection: 11/03/2020, 05/12/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 impingement of both hips (Acute) Medical History (Updated 03/17/25 @ 13:56 by Mary Barton APRN) Acute UTI Altered mental status Breast cancer screening Intercostal neuralgia left sided anterior pain reproducible on exam, nonexertionalHip pain, right Pain in right foot Trigger thumb of left hand Pain in joint of left knee Pain in right wrist Pain, joint, knee, right Screening for malignant neoplasm of breast Anesthesia of skin Low back pain Intestinal obstruction Trigeminal neuralgia Migraine Mild major depression 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Polyp of colon Effusion, left knee Hypertension Head ache Diplopia Laryngitis Dyspnea DeniesAcute pharyngitis Edema Localized edema Malaise Dizziness and giddiness Intractable pain Ambulatory dysfunction Inability to ambulate due to left knee Weakness Depression Obesity Blood glucose elevated Enlarged liver Tricuspid regurgitation History of colon cancer Cortical cataract of left eye Posterior subcapsular age-related cataract of left eye Nuclear sclerotic cataract of left eye Surgical History (Updated 02/16/25 @ 17:16 by Mary Barton APRN) Status post cataract extraction and insertion of intraocular lens of right eye (08/18/18) Status post cataract extraction and insertion of intraocular lens of left eye (08/04/18) H/O total hysterectomy with bilateral salpingo-oophorectomy (BSO) Status post total right knee replacement followed by open synovectomy then revisionStatus post cataract extraction BilateralHx of colonoscopy (~01/18/25) History of hemicolectomy Social History/Home Situation: Resides alone in an apt with a ramp to enter. Pt independent ADL, Ambulation, drives, independent meal prep, shopping Equipment Owned/DME: [facility] Subjective: Pt reports this hip was much easier than my left Objective: [] General Observation: presented seated in chair with ice to right hip Mental Status: A+Ox4, cooperative able to follow instructions , agreeable to participate Pain: 3-4 right hip ROM: [] Right Upper Extremity: WFL Left Upper Extremity: WFL Right Lower Extremity: WFL PROM Left Lower Extremity: WFL Strength: [] Right Upper Extremity: 5/5 Left Upper Extremity: 5/5 Right Lower Extremity:Hip flexion: 2+ /5; hip abduction: 2+ /5; hip extension: 2 /5; knee extension:3 /5; knee flexion: 3-/5 ankle DF: 3 /5 ; ankle PF: 3 /5 Left Lower Extremity: grossly 4/5 hip knee and ankle Sensation: intact Bed Mobility/Transfers: [] Supine to sit per Nurse supervision Sit to stand SBA Stand to sit SBA Bed to chair SBA with FWW Gait: ambulates with FWW SBA reciprocal pattern 120 feet reduced step length B Stairs: 3 4 steps and 2 6 steps with rails SBA with continuous cues for sequencing step to pattern Balance: [] Static Sitting: Normal Dynamic Sitting: Normal Static Standing: Good without UE support Dynamic Standing: good with 1 UE support Special Tests: [] Mobility Limitations Standardized Measure [] [facility] AM-PAC 6 clicks Basic Mobility Inpatient Short Form: [] Raw Score: 21 CMS Score: 28.97% deficit Informed Consent/Education: Patient instructed in purpose of PT consult. Treatment: 36755 Packet containing BHARATHI exercise protocol has been given to patient. Education and training on initial set of 5 reps of exercises that can be done at home have been completed with patient. Pt required tactile and verbal cues to complete HEP toilet transfers with SBA simulated car transfer with CGA Assessment: Patient presents with clinical signs and symptoms consistent with current/admitting diagnoses that have resulted to mobility limitations, gait instability, generalized weakness, and impairment of motor control as dem onstrated by the following impairment level findings: 1. Decreased strength to right LE major muscle groups 2. Impaired standing balance 3. Limitation of joint range of motion in right hip 4. Pain right hip 5. impaired functional activity tolerance Impairments are contributing to the following functional limitations: 1. Inability to safely ambulate without assistive device 2. Increase completion time for mobility ADL performance 3. Increased fall risk 4. Difficulty performing stairs without assistance Patient is assessed as a low complexity based on the following: History: 74-year-old female with impairment level findings, functional limitations, and past medical history as indicated above Examination: Demonstrable impairment in strength, balance, and mobility level with underlying impairments and functional limitations as documented above Presentation:stable Decision Making:low Goals: N/A. PT evaluation and 1-2 treatment sessions only for functional mobility training using recommended AD and for HEP instruction. Plan of Care/Treatment Plan: N/A. PT evaluation and 1-2 treatment session only for functional mobility training using recommended AD and for HEP instruction. DISCHARGE RECOMMENDATIONS: Home with HEP TREATMENT CODE/TIME: 26428, [id number]/ [id number] Thank you for the opportunity to participate in the care of this patient. Nydia Huertas PT [facility]
== END 2025-04-06 12:15 | disposition home or self-care (01) ==
PROVIDERS: PCP Nurse Practitioner Family; Visit Provider Student in an Organized Health Care Education/Training Program
PROC: (CPT 27130; principal; 2025-04-06 07:30)
DX: M16.11 Unilateral primary osteoarthritis, right hip (principal)
CPT/HCPCS: 27130; 20985; 97161; 97530; 73501; 93005; 93010; C1776; J0166; J0690; J1100; J1885; J2003; J2371; J2401; J2405; J2704; J2795

== ENCOUNTER 2025-04-19 11:58 | Outpatient (CLI) | payer MEDICARE, SELFPAY ==
--- NOTE | 2025-04-19 10:15 | DI.RAD_ITS ---
Exam(s) XR HIP RT COMPLETE AP PELVIS EXAM: XR HIP RT COMPLETE AP PELVIS CLINICAL HISTORY: 1ST POST OP R BHARATHI. TECHNIQUE: 2D digital imaging was performed. Two images were obtained. AP pelvis and lateral right hip views were obtained. COMPARISON: CR XR HIP LT COMPLETE AP PELVIS from 08/27/2024 XA XR HIP RT IN OR from 04/06/2025 FINDINGS: BONES: There are stable post operative changes of a right total hip arthroplasty present. No fracture or dislocation. There is also a left total hip arthroplasty. It is unremarkable on the single image obtained. JOINTS: The orthopedic hardware is in good position. No evidence of hardware loosening. SOFT TISSUE: Normal. IMPRESSION: Stable right total hip arthroplasty. DATA REPOSITORY: RADIATION DOSE DELIVERED:
== END 2025-04-19 11:59 | disposition home or self-care (01) ==
LOC: DIORS 11:59
PROVIDERS: PCP Nurse Practitioner Family; Referring Provider Nurse Practitioner Family; Visit Provider Physician Assistant
DX: Z47.1 Aftercare following joint replacement surgery (principal); Z96.641 Presence of right artificial hip joint
CPT/HCPCS: 99024; 73502